=== PATIENT | female | born 1955 | race Caucasian/White ===

== ENCOUNTER 2019-11-02 13:19 | Outpatient (CLI) | payer MEDICARE, SELFPAY ==
--- NOTE | 2019-11-02 13:30 | USCV_ITS ---
Cinthia Palacios Age: 64 Gender: F : 1955 Exam Date: 11/02/2019 13:21 Ordering Phys: Katie Dobbs Technologist: Eilezer Gómez [place] [facility] [place]: [place] RIGHT LEFT Brachial 165.00 mmHg Brachial 172.00 mmHg Pressure (mmHg) Waveform Pressure (mmHg) Waveform 136.00 Above Knee 139.00 167.00 Below Knee 148.00 178.00 ATTORNEY 150.00 142.00 DPA 137.00 1.03 Ankle/Brachial Index 0.87 Pre-Exercise Toe Pressure 101.00 90.00 0.52 Pre-Exercise Toe/Brachial Index 0.59 FINDINGS Normal resting CASTRO on the right side Slightly diminished resting CASTRO on the left side Diminished resting TBI bilaterally PVR waveforms showing low velocity delayed peaking waves. CONCLUSIONS Mild to moderate peripheral artery disease bilaterally, based on the above findings. The reliability of the PVR waveforms are questionable Dr Marilyn Moore MD [facility] (Electronically Signed) Final Date: 05 November 2019 14:33 S
== END 2019-11-02 13:20 | disposition home or self-care (01) ==
LOC: US 13:20
PROVIDERS: Family Provider Physician Assistant; Visit Provider Physician Assistant
DX: I73.9 Peripheral vascular disease, unspecified (principal)
CPT/HCPCS: 93923

== ENCOUNTER 2019-11-16 07:51 | Outpatient (CLI) | payer MEDICARE, SELFPAY ==
--- NOTE | 2019-11-16 08:00 | USCV_ITS ---
Cinthia Palacios Age: 64 Gender: F : 1955 Exam Date: 11/16/2019 08:17 Ordering Phys: Sandor Lipscomb MD (Andy) ([email or web address] Technologist: Leslie Bryson Exam Location: [facility] – [place] Indication: STENOSIS Risk Factors: SMOKER Previous Vascular Surgery: KNOWN LEFT OCCLUSION Right Brachial BP: / Left Brachial BP: / Right Left Velocity (cm/s) Spectral Plaque Velocity (cm/s) Spectral Plaque Syst/Diast Broadening Syst/Diast Broadening 81.60/ 28.70 Prox CCA 44.70 / 9.20 71.70/ 28.70 Mid CCA 37.50 / 8.80 67.30/ 26.50 Distal CCA 54.00 / 14.30 310.43/106.37 Prox ICA / 222.20/74.10 Mid ICA / 225.00/79.80 Distal ICA / 159.10 ECA 110.30 4.97 ICA/CCA Vertebral Antegrade 48.60/ 18.40 cm/s 56.20/ 25.40 cm/s FINDINGS Moderate to heavy heterogeneous plaques of the right bifurcation and proximal internal carotid artery Heavy plaques at the proximal left ICA and bifurcation No Doppler flow signals in the left ICA Antegrade flow in the vertebral arteries bilaterally Normal Doppler flow velocities in the external carotid arteries bilaterally CONCLUSIONS 1. Features of total occlusion of the left internal carotid artery, chronic. 2. Moderate to heavy at venous plaques at the right bifurcation and proximal left carotid artery with velocity elevation consistent with greater than 70% stenosis. 3. Intimal thickening and minimal plaques in the common carotid arteries bilaterally Compared to the study from 03/16/2019, there is worsening of stenosis on the right side. Consider CTA, to better evaluate the carotid arteries Dr Marilyn Moore MD [facility] (Electronically Signed) Final Date: 16 November 2019 17:37 S
== END 2019-11-16 07:52 | disposition home or self-care (01) ==
LOC: RAD 07:55
PROVIDERS: Family Provider Physician Assistant; PCP Physician Assistant; Visit Provider Thoracic Surgery (Cardiothoracic Vascular Surgery)
DX: I65.23 Occlusion and stenosis of bilateral carotid arteries (principal); F17.200 Nicotine dependence, unspecified, uncomplicated
CPT/HCPCS: 93880

== ENCOUNTER 2019-12-06 07:46 | Outpatient (CLI) | payer MEDICARE, SELFPAY ==
--- NOTE | 2019-12-06 08:20 | CT_ITS ---
WS: [id number] CT ANGIOGRAM CAROTID ARTERIES HISTORY: carotid stenosis TECHNIQUE: CT angiogram is performed of the carotid arteries. During arterial injection imaging is ob tained from the skull base to the aortic arch in 1.25 mm imaging. Coronal and sagittal reformats are submitted, MIP imaging also reviewed. Additional multiplanar reformats of the carotid arteries are harris bmitted. NASCET criteria utilized. All CT scans at [facility] use at least one of these d ose optimization techniques: automated exposure control; mA and/or kV adjustment per patient size (in cludes targeted exams where dose is matched to clinical indication); or iterative reconstruction. CONTRAST: Omnipaque 350; 95 mL IV. DLP: 822.99 mGycm COMPARISON: 08/31/2018 Right carotid: Common carotid artery: Arises normally from the innominate artery. No significant plaque or stenosis. Internal carotid artery: Small amount of intimal thickening and calcified plaque at the bifurcation. Focal narrowing involving the proximal ICA. Proximal RIGHT ICA stenosis 76%. There is mild narrowing involving the origin of the ICA with stenosis near 50%. External carotid artery: Patent. Left carotid: Common carotid artery: Very slight narrowing at the origin but no significant stenosis. Internal carotid artery: LEFT ICA is completely occluded. Chronic occlusion as this was described on 08/31/2018 also. External carotid artery: Patent. Right vertebral artery: Unremarkable. Left vertebral artery: Small amount of plaque at the origin of the LEFT vertebral artery but it is pa tent. Subclavian arteries: No stenosis or abnormality identified. Upper thorax: No suspicious nodules at the lung apices. 2 mm nodule LEFT upper lobe. Mild atheroscler osis at the aortic arch. Thyroid gland: Normal. Osseous structures: Degenerative disc disease and osteophytes throughout the cervical spine. Skull base: Patent RIGHT carotid artery through the cavernous sinuses. The LEFT carotid artery is occ luded through the petrous ridge. There is a small lumen noted in the cavernous sinus which is probabl y due to retrograde flow through a patent yocha dehe of [place]. CT/CT angio neck 37794 IMPRESSION: 1. Tendon stenosis involving the RIGHT ICA. Stenosis 50% at the origin of the ICA and 76% proximal ICA. 2. Known, completely occluded LEFT ICA.
[2019-12-06 08:55] LABS: Blood Urea Nitrogen 5 mg/dL (8-23); Glomerular Filtration Rate 100.3 mL/min (90-130)
[2019-12-06] MEDS: iohexol 350 mg/mL 100 mL Btl IV (09:08)
== END 2019-12-06 07:47 | disposition home or self-care (01) ==
LOC: RADWPI 07:47
PROVIDERS: Family Provider Physician Assistant; PCP Physician Assistant; Visit Provider Thoracic Surgery (Cardiothoracic Vascular Surgery)
DX: I65.23 Occlusion and stenosis of bilateral carotid arteries (principal); I73.9 Peripheral vascular disease, unspecified
CPT/HCPCS: 70498; 82565; 84520; Q9967

== ENCOUNTER 2020-01-07 10:00 | Inpatient (IN) | payer MEDICARE, OTHER, SELFPAY ==
[2020-01-02 09:37] VITALS: BMI 24.7
--- NOTE | 2020-01-02 09:41 | ECG_ITS ---
Measurements Intervals Noel Rate: 53 P: -62 FL: 118 QRS: 62 QRSD: 81 T: 73 QT: 437 QTc: 411 JUNCTIONAL BRADYCARDIA ABNORMAL RHYTHM ECG Compared to ECG 05/02/2018 23:17:48 Sinus rhythm no longer present ST (T wave) deviation no longer present Electronically Signed On 01-02-2020 18:12:26 CDT by Marilyn Moore M.D. [email or web address]
--- NOTE | 2020-01-02 09:47 | XR_ITS ---
WS: [id number] PROCEDURE: XR chest 2V* [id number] CLINICAL INFORMATION: pre op for surgery COMPARISON: May 02, 2018 FINDINGS: Heart: Normal cardiac silhouette. Aortic calcification. Lungs: Moderate chronic emphysematous changes. A few calcified granulomas. No acute pulmonary infiltr ates. Bones: Mild thoracic kyphosis. Cholecystectomy clips. XR/XR chest 2V* 97392 IMPRESSION: No acute chest findings.
[2020-01-02 11:11] LABS: Bilirubin Urine Neg (NEGATIVE); Blood Urine Neg (Negative); Glucose Urine UA Norm (Normal); Ketones Urine Negative (Negative); Leukocyte Esterase Urine Negative (Negative); Nitrate Urine Negative (Negative); Protein Urine Neg (Negative); Urine Appearance Clear (CLEAR); Urine Color Straw (Yellow); Urobilinogen Urine Norm (Negative); pH Urine 7 (5-7)
[2020-01-02 11:12] LABS: Add Urine Culture? No; Bacteria Urine TRACE; Squamous Epithelial Cell Urine 0-4 (0-5)
--- NOTE | 2020-01-02 11:29 | P.ANESASSM_ITS ---
Pre-Anesthetic Assessment Pre-Anesthetic Assessment: Height/Weight: Height 1.55 m Weight 59.421 kg Preop Diagnosis: Right Carotid Stenosis Proposed Procedure: Operation Date: 01/07/20 07:00 Proposed Procedures p Carotid Endarterectomy(Not Applicable) - Sandor Lipscomb MD Social: Packs per day: 1/2 Pack years: >50 Exam: Pre-Anes Outpt Exam: alert, oriented x 3, clear to auscultation bilaterally and regular rate & rhythm Airway: Submandibular: WNL Cervical ROM: WNL MP: 1 Pulmonary: Pulmonary: COPD CV/HEM: CV/HEM: PVD Comments: stress test '17 negative GI: GI: GERD Comments: controled with omeprazole Metabolic: Metabolic: Thyroid Comments: replacement x 5y without recent ch rodrigo Musc/skel: Musc/skel: Lower Back Pain Comments: right radiculopathy Anesthetic Plan: ASA status: 3 Anesthesia: General PFSH Anesthesia PFSH: Social History Smoking and tobacco status: current every day smoker Alcohol intake: never Data Anesthesia Other Labs: Laboratory Results - last 48 hr 01/02/20 10:30 Urine Color Straw Urine Appearance Clear Urine pH 7 Ur Specific [place] 1.000 L Urine Protein Neg Urine Glucose (UA) Norm Urine Ketones Negative Urine Blood Neg Urine Nitrate Negative Urine Bilirubin Neg Urine Urobilinogen Norm Ur Leukocyte Esterase Negative Urine RBC None Urine WBC None Ur Squamous Epith Cells 0-4 H Urine Bacteria Trace Cardiac Studies: No Data to Display
[2020-01-02 11:40] LABS: Basophils # 0.1 10^3/uL (0.0-0.1); Basophils % 0.9 %; Eosinophils # 0.1 10^3/uL (0.0-0.8); Eosinophils % 1.4 %; Hematocrit 46.2 % (37.0-47.0); Hemoglobin 14.3 g/dL (11.5-15.3); Mean Corpuscular Volume 84.2 fL (81-99); Mean Platelet Volume 10.4 fL (7.4-10.4); Monocytes # 0.4 10^3/uL (0.2-0.9); Monocytes % 4.6 %; Neutrophils # 5.6 10^3/uL (1.8-7.7); Neutrophils % 68.7 %; Nucleated Red Blood Cells % 0 %; Platelet Count 367 10^3/cmm (130-400); Red Blood Count 5.49 10^6/uL (4.1-5.3); Red Cell Distribution Width 14.9 % (12.1-15.1); White Blood Count 8.1 10^3/uL (4.0-10.0)
[2020-01-02 11:56] LABS: Anion Gap 15.2 (5-19); Blood Urea Nitrogen 8 mg/dL (8-23); Calcium 9.6 mg/dL (8.5-10.5); Carbon Dioxide 27 mmol/L (22-29); Chloride 98 mmol/L (98-107); Glucose 107 mg/dL (65-115); Osmolality Calculated 278 mOsm/kg (285-295); Potassium 4.2 mmol/L (3.5-5.1); Sodium 136 mmol/L (136-145)
[2020-01-02 12:01] LABS: INR 0.95 (0.8-1.2)
[2020-01-02 12:02] LABS: Partial Thromboplastin Time 40.3 SECONDS (23.9-36.7)
[2020-01-07] VITALS (7 sets, daily range): BP systolic 121–136; BP diastolic 65–71; PULSE 55–80; RESP 14–21; TEMP 36.4; O2SAT 92–95
[2020-01-07 06:00] LABS: Glucose Point of Care 89 mg/dL (70-110)
--- NOTE | 2020-01-07 06:12 | W.PM.OPSUD ---
Surgery/Procedure H&P Update DATE OF PROCEDURE: January 07, 2020 DATE H&P PERFORMED: 01/03/20 H&P UPDATE INFORMATION: I have reviewed H&P completed within last 30 days, I have examined patient prior to procedure and No changes to prior documentation PREOP DIAGNOSIS: Right carotid endarterectomy PRIMARY INDICATION FOR PROCEDURE: 76% right ICA stenosis with total occlusion of the left ICA. Details and risk of the procedure again carefully discussed. Increase stroke risk related to her known left ICA occlusion were frankly reviewed. She states understanding. Proper consents have been reviewed and signed. PLANNED PROCEDURE: Operation Date: 01/07/20 07:00 Proposed Procedures p Carotid Endarterectomy(Not Applicable) - Sandor Lipscomb MD
[2020-01-07] MEDS: sodium chloride 0.9% 1,000 ML 30 ML IV (06:15)
[2020-01-07] MEDS: midazolam 1 mg/mL INJ 2 mL 2 MG IVP (06:36)
[2020-01-07] MEDS: ipratropium 0.5 mg/2.5 mL Neb INHALATION (06:40)
--- NOTE | 2020-01-07 06:45 | P.ANESUD_ITS ---
Pre-Anesthetic Update Pre-Anesthetic Assessment: Date of Surgery/Procedure: 01/07/20 Preop Tamara gnosis: Right carotid endarterectomy Proposed Procedure: Operation Date: 01/07/20 07:00 Proposed Procedures p Carotid Endarterectomy(Not Applicable) - Sandor Lipscomb MD Any changes to Pre-Anesthetic Assessment?: No Last Intake: Intake Last Liquid Date 01/07/20 Last Liquid Time 05:00 Last Solid Date 01/06/20 Last Solid Time 21:30 Labs Last 48hrs: Laboratory Results - last 48 hr 01/07/20 05:56 POC Glucose 89 Vitals: Temperature 97.5 F L 01/07/20 06:04 Temperature Source Temporal Artery S can 01/07/20 06:04 Pulse Rate 58 L 01/07/20 06:04 Respiratory Rate 16 01/07/20 06:04 Blood Pressure 127/65 01/07/20 06:04 Blood Pressure Arely n 85 01/07/20 06:04 Pulse Oximetry 95 01/07/20 06:04 Oxygen Delivery Me thod 01/07/20 06:04 Exam: Pre-Anes Outpt Exam: alert, oriented x 3, clear to auscultation bilaterally and regular rate & rhythm Cardiac Studies: No Data to Display
[2020-01-07] MEDS: vancomycin 1,000 MG SDV 1000 MG IRRIGATION (07:45)
[2020-01-07] MEDS: heparin, porcine 1,000 unit/mL INJ 10 mL 10000 UNIT IRRIGATION (07:45)
--- NOTE | 2020-01-07 10:00 | SUR.PHASEI ---
To ICU s/p right carotid. O2 in place 6 l simple mask Arterial line in place to right wrist. Pt to be recovered in ICU
[2020-01-07] MEDS: ketorolac 30 mg/mL INJ IVP ×2 (10:49→19:33)
[2020-01-07] MEDS: ondansetron 2 mg/ML SDV 2 mL 4 MG IVP ×2 (10:49→13:51)
[2020-01-07] MEDS: atorvastatin 40 mg Tablet 20 MG PO (11:12)
[2020-01-07] MEDS: clopidogrel 75 mg Tablet PO (11:12)
[2020-01-07] MEDS: aspirin 81 mg EC Tablet PO (11:12)
[2020-01-07] MEDS: albuterol 8 gm MDI 2 PUFF INHALATION (11:13)
[2020-01-07] MEDS: HYDROcodone-acetaminophen 5-325 mg Tablet 1 TAB PO ×2 (11:39→17:23)
--- NOTE | 2020-01-07 12:54 | P.OP_ITS ---
Operative Report Date of procedure: January 07, 2020 Pre-op Diagnosis: Right internal carotid artery stenosis with left internal carotid artery occlusion Post-op diagnosis: same Procedure Done: Right carotid endarterectomy with patch angioplasty Implants: Hemashield patch Specimens removed/disposition: Right carotid plaque Surgeon: Sandor Lipscomb Anesthesia: General Estimated blood loss (mL): 50 Complications: None: Neurologically intact immediately postop. Condition: stable Disposition: ICU Brief History: Pleasant 64-year-old female referred to our service for markedly increased velocities in the right ICA and suggestion of left ICA occlusion. Subsequent CTA of December 05 revealed ostial stenosis of 50% of the right ICA with a slightly distal but still proximal stenosis of 76%. The left ICA is occluded. Patient continues to smoke at least 1/2 pack of cigarettes per day. Recommendation for right carotid endarterectomy was made to reduce her statistical increased risk for spontaneous CVA related to this high-grade lesion, particular in the face of left internal carotid occlusion. Details the risk of the procedure were carefully and frankly discussed. Proper consents were reviewed and signed. Procedure: Ms. Palacios was placed on the OR table and underwent general endotracheal anesthesia with a neurological monitoring endotracheal tube as well as placement of a right radial arterial line. Bihemispheric monitoring pads were placed as well as grounding and sensing pads for nerve conduction evaluation during neck dissection.The entire upper chest and right neck were sterilely prepped and draped. Incision was made along the anterior border of the sternomastoid muscle and carried down to the platysma with cautery. Dissection from this point forward was carried out utilizing Metzenbaum scissors. The internal jugular vein was dissected free and the facial vein was ligated, oversewn, and divided. Dissection was continued down through the ansa cervicalis with preservation of major branches. Minor branches were divided if required to allow for adequate exposure. Nerve conduction evaluation was performed throughout the dissection for protection of the recurrent nerve. We subsequently reached the common carotid artery. Dissection was then contin ued proximally to distally across the bifurcation. Vessel loops were placed around the common carotid artery, internal carotid artery, and external carotid artery. Distally, the base of the hypoglossal nerve could be identified and was protected. The internal carotid artery disease went fairly high and extended above the level of the mandibular angle. This did require some traction in this region, but great care was taken to minimize pressure to the hypoglossal nerve, which was protected. Care was taken during this dissection to avoid injury to the vagus nerve. The patient was then heparinized with 10,000 units. The systolic blood pressure was elevated to 160. Following this, in a rapid sequenced fashion, the distal internal carotid artery was clamped followed by clamping of the common carotid artery and external carotid artery. #11 scalpel blade was used to open the common carotid artery proximally. Beck scissors were then utilized to extend this arteriotomy across the distal common carotid artery and ulcerated very stenotic plaque and continue this further at the bifurcation across the calcific plaque in the internal carotid artery until we had reached normal intima. The internal carotid artery clamp was briefly flashed with evidence of brisk back bleeding, therefore we elected not to shunt. It should be noted that bi-hemispheric oximetry was recorded throughout the procedure. Next, a freer elevator was utilized to create a dissection plane the plaque from intima at the proximal portion of the arteriotomy. This was then divided with a #11 scalpel blade. This plaque was then further dissected along the intimal plane proximally to distally across the bifurcation. Utilizing an everting technique, plaque was removed from the external carotid artery with brisk flow. This plaque was then dissected free up the internal carotid artery to a feathered edge. Heparinized saline solution was utilized to remove any loose debris. Next, a Hemashield patch was brought into the field and sewn into position utilizing a running 6-0 Prolene suture, thereby completing our patch angioplasty. At the completion of the patch, the external carotid artery was opened followed by the common carotid artery and finally the internal carotid artery, thereby reestablishing cerebral flow. Areas of extravasation were repaired with 7-0 Prolene suture. After 5 minutes, heparin was reversed with protamine. Hemostasis was confirmed. The wound was irrigated with antibiotic solution. A small, flat, Wing-Centeno drain was placed in the wound and connected to bulb suction. Sponge and needle count was correct. The wound was then closed in 2 layers of 3-0 Vicryl suture. Skin was reapproximated in a subcuticular manner with 4-0 Monocryl suture. A pressure dressing was then applied. Ms. Palacios was awakened from anesthesia and spontaneous movement of all extremities as well as movement to command was noted. The patient was then transferred to the ICU in stable condition. I did counselor dormitory with her son by phone at completion of the procedure. She will be monitored in the ICU for the next 24 hours.
[2020-01-07] MEDS: morphine 4 mg/mL SDV 1 mL 2 MG IVP ×2 (12:57→16:30)
--- NOTE | 2020-01-07 13:45 | PC.NURSE ---
Continues to complain of nausea from pain meds. Dr Pulido aware and order received to repeat Zofran IV now and if nausea continues to use Phenergan RS
[2020-01-07] MEDS: ceFAZolin 1,000 MG in sodium chloride 0.9% (plus) 50 ML 100 MG IV ×2 (15:13→23:29)
[2020-01-07] MEDS: promethazine 25 mg Supp PR (15:29)
[2020-01-08] VITALS: BP 116/50; PULSE 70; RESP 18; O2SAT 91
[2020-01-08 02:00] VITALS: BP 122/67; PULSE 64; RESP 17; O2SAT 92
[2020-01-08] MEDS: HYDROcodone-acetaminophen 5-325 mg Tablet 1 TAB PO ×2 (03:31→08:38)
[2020-01-08 04:00] VITALS: BP 121/55; PULSE 64; RESP 17; O2SAT 91
--- NOTE | 2020-01-08 05:25 | PM.PN ---
Subjective Subjective: Interval history: Postop day #1 status post right carotid endarterectomy. Had uneventful night. Neurologically intact. Vital signs stable. No phonation or swallowing difficulties. Low KIM drain output. KIM drain was discontinued this morning. Incision clean and dry. No localized swelling. Tongue is midline with protrusion. Vitals/I&O/Wt Last Vital Signs Temp 97.5 F L 01/07/20 06:04 Pulse 64 01/08/20 04:00 Resp 17 01/08/20 04:00 BP 121/55 01/08/20 04:00 Pulse Ox 91 01/08/20 04:00 01/07/20 01/07/20 01/08/20 14:59 22:59 06:59 Intake Total 1570 / 1570 410 / 1980 Output Total 350 / 350 665 / 1015 300 / 1315 Balance 1220 / 1220 -255 / 965 -300 / 665 Physical Exam Const: COMMON NORMALS: oriented x3 and alert ORIENTATION/CONSCIOUSNESS: Yes oriented to person, Yes oriented to place and Yes oriented to time Neck/C-Spine: COMMON NORMALS: full ROM, no lymphadenopathy and supple GENERAL: Yes trachea midline and No anterior neck swelling OTHER: Neck incision clean and dry. KIM drain removed. Neuro: COMMON NORMALS: oriented x3, moves all extremities, no focal motor deficits and no sensory deficits noted SENSORIUM/ORIENTATION: Yes alert, Yes oriented to person, Yes oriented to place and Yes oriented to time Urinary Catheter Management^: Mccoy: Cath Placed During This Visit: yes, but has since been removed by the nurse Reason for Continuing Indwelling Catheter: Accurate Measurement of Urinary Output in Critically Ill Patients Urinary Catheter Date of Insertion: 01/07/20 Urinary Catheter Time of Insertion: 07:12 Date Urinary Catheter Removed: 01/07/20 Time Urinary Catheter Discontinued: 17:20 Data : 01/02/20 11:15 01/02/20 11:15 A&P Assessment and plan (1) Status post carotid endarterectomy: Postop day #1 status post right carotid endarterectomy. Recovering well. Neurologically intact. We will plan to discharge to home today. Follow-up in clinic in 1 week. Stable at discharge. Status: Acute Attestations Medical Necessity Statement*: High-grade right ICA stenosis with known left ICA occlusion. Status post right carotid endarterectomy. Neurologically intact. Time Spent in Patient Care: 16 - 35 minutes Coding Level of Care Code Acute [employer] for [employer] Fwd Diagnoses Status post carotid endarterectomy Z98.890
[2020-01-08] MEDS: isosorbide mononitrate ER 30 mg Tablet PO (05:27)
--- NOTE | 2020-01-08 05:32 | P.DS_ITS ---
Discharge Providers Date of Admission: 01/07/20 10:00 Date of Discharge: January 08, 2020 Attending Provider at Admission: Sandor Lipscomb MD Attending Provider at Discharge: Sandor Lipscomb MD Primary Care Provider: Katie Dobbs Diagnoses at Discharge Discharge Diagnosis (1) Status post carotid endarterectomy: Status: Acute Reason for Visit Reason for Visit: Brief History: 64-year-old female with known left internal carotid artery occlusion and high-grade right internal carotid artery stenosis. Carotid endarterectomy is recommended redo statistical increased risk for spontaneous CVA related to her carotid stenosis. Hospital Course 2 Hospital Course: Ms. Palacios was electively admitted on January 06 and underwent right carotid endarterectomy with patch angioplasty. Postoperative, she convale sced in the ICU where she remained hemodynamically and neurologically stable. She has had no difficulties with phonation or swallowing. Pain is been under good control. She has low KIM drain output overnight and therefore KIM drain was discontinued this morning. Incision clean and dry. No neurologic deficits noted. He will be discharged home today in stable condition. Physical Exam Const: COMMON NORMALS: oriented x3 and alert ORIENTATION/CONSCIOUSNESS: Yes oriented to person, Yes oriented to place and Yes oriented to time Neck/C-Spine: COMMON NORMALS: full ROM, no lymphadenopathy and supple OTHER: Incision clean and dry. Low KIM drain output. KIM drain discontinued. Neuro: COMMON NORMALS: oriented x3, no focal motor deficits and no sensory deficits noted SENSORIUM/ORIENTATION: Yes alert, Yes oriented to person, Yes oriented to place and Yes oriented to time Urinary Catheter Management^: Mccoy: Cath Placed During This Visit: yes, but has since been removed by the nurse Reason for Continuing Indwelling Catheter: Accurate Measurement of Urinary Output in Critically Ill Patients Urinary Catheter Date of Insertion: 01/07/20 Urinary Catheter Time of Insertion: 07:12 Date Urinary Catheter Removed: 01/07/20 Time Urinary Catheter Discontinued: 17:20 Discharge Data Data Completed and Pending: Completed Studies During Hospitalization Category Date Time Status XR chest 2V* 7104 6 Routine Exams 01/02/20 09:47 Completed Pending at discharge Category Date Time Status Leukocyte Reduced RBC Routine Lab 01/02/20 11:15 Results Retype for XM Rou pankaj Lab 01/02/20 11:15 Results Type and Screen - Cardiac Routine Lab 01/02/20 11:15 Results Pathology: Surgic al [PTH] Routine Pth 01/07/20 08:55 Received Labs from last 24 hours 01/07/20 01/02/20 05:56 11:15 POC Glucose 89 Blood Type A Positive Rho(D) Type Positive Antibody Screen Negative Crossmatch See Detail Vitals: Last Vital Signs Temp 97.5 F L 01/07/20 06:04 Pulse 64 01/08/20 04:00 Resp 17 01/08/20 04:00 BP 121/55 01/08/20 04:00 Pulse Ox 91 01/08/20 04:00 Discharge Plan Discharge Condition: Stable Prescriptions: New hydrocodone-acetaminophen 5-325 mg Tablet 1 tab PO Q6H PRN (Reason: Moderate Pain) Qty: 16 RF: 0 Continued clopidogrel [Plavix] 75 mg tablet 75 mg PO QDAY RF: 0 isosorbide mononitrate 30 mg tablet extended release 24 hr 30 mg PO QAM RF: 0 lovastatin 20 mg tablet 20 mg PO QDAY RF: 0 omeprazole 40 mg capsule,delayed release(DR/EC) 40 mg PO QDAY RF: 0 levothyroxine 50 mcg capsule 50 mcg PO QDAY RF: 0 atenolol 50 mg tablet 50 mg PO QDAY RF: 0 albuterol sulfate 90 mcg/actuation HFA aerosol inhaler 2 puff INHALATION Q6H PRN (Reason: Dyspnea) RF: 0 acetaminophen 325 mg capsule 650 mg PO Q4H PRN (Reason: Pain) RF: 0 aspirin 81 mg tablet,delayed release (DR/EC) 81 mg PO QDAY RF: 0 Discharge Orders: Discharge Order (Routine); Ordered 01/08/20 Ordered By: Sandor Lipscomb Referrals: Sandor Lipscomb MD [Physician] - 1 week Discharge Diet: Usual diet Discharge Activity: Limit activity as instructed Activity Restrictions/Additional Instructions: No heavy lifting or pulling x2 weeks Remove bandage tomorrow. May leave incision open, or recover if desired. May begin daily showers on , January 09 Report any swelling, drainage, redness, or increasing pain in neck Report any visual changes, difficulty swallowing or speech, or difficulty moving extremities. Resume all home medications. Discharge Attestations Time Spent in Discharge Care*: less than 30 min Specific Discharge Activities: Specific discharge activities: educating patient, discussing with pcp/other providers and documenting/other paperwork Time Spent in Smoking Cessation: Time spent discussing smoking cessation with patient: 3 to 10 minutes Status at Discharge: Cognitive status at discharge: cognitively intact , Behavioral status at discharge: cooperative , Functional status at discharge: independent ambulation Quality Metrics Clinical Quality Measures During this hospital stay, did patient experience: None Coding Level of Care Code Acute [employer] for [place] Fwd Diagnoses Status post carotid endarterectomy Z98.890
[2020-01-08 06:00] VITALS: BP 138/94; PULSE 71; RESP 25; TEMP 36.7; O2SAT 90
[2020-01-08] MEDS: ceFAZolin 1,000 MG in sodium chloride 0.9% (plus) 50 ML 100 MG IV (06:38)
[2020-01-08 08:07] VITALS: BP 123/87; PULSE 75; RESP 20; TEMP 36.3; O2SAT 94
[2020-01-08] MEDS: atorvastatin 40 mg Tablet 20 MG PO (08:33)
[2020-01-08] MEDS: clopidogrel 75 mg Tablet PO (08:34)
[2020-01-08] MEDS: pantoprazole DR 40 mg Tablet PO (08:34)
[2020-01-08] MEDS: aspirin 81 mg EC Tablet PO (08:35)
[2020-01-08] MEDS: levothyroxine 50 mcg Tablet PO (08:35)
[2020-01-08] MEDS: atenolol 50 mg Tablet PO (08:35)
[2020-01-08 08:52] VITALS: BP 123/87; PULSE 75; RESP 20; TEMP 36.3; O2SAT 94
--- NOTE | 2020-01-08 08:55 | PC.NURSE ---
Discharge instructions on carotid endartectomy, hydrocodone, post surgical restrictions provided and discussed. List of home medications lso provided. Pt verbalized understanding. Pt discharged.
== END 2020-01-08 08:52 | disposition home or self-care (01) | DRG 39 ==
LOC: ICU 10:14
PROVIDERS: Admitting Provider Thoracic Surgery (Cardiothoracic Vascular Surgery); Family Provider Physician Assistant; PCP Physician Assistant; Visit Provider Thoracic Surgery (Cardiothoracic Vascular Surgery)
PROC: 03CK0ZZ Extirpation of Matter from Right Internal Carotid Artery, Open Approach (ICD-10-PCS; CPT 35301; principal; 2020-01-07 07:00)
DX: I65.23 Occlusion and stenosis of bilateral carotid arteries (principal); F17.210 Nicotine dependence, cigarettes, uncomplicated; J44.9 Chronic obstructive pulmonary disease, unspecified; K21.9 Gastro-esophageal reflux disease without esophagitis; I73.9 Peripheral vascular disease, unspecified; Z79.02 Long term (current) use of antithrombotics/antiplatelets; Z79.82 Long term (current) use of aspirin
CPT/HCPCS: 12345; 36415; 36416; 51702; 71046; 80048; 81001; 82962; 85025; 85610; 85730; 86850; 86900; 86920; 88304; 93005; 94640; 96374; 96375; J0330; J0690; J1100; J1644; J1885; J2001; J2250; J2270; J2370; J2405; J2720; J3010; J3370; J3490; J3535; J7030; J7644; J8498

== ENCOUNTER 2020-02-27 15:29 | Outpatient (CLI) | payer MEDICARE, OTHER, SELFPAY ==
--- NOTE | 2020-02-27 15:45 | USCV_ITS ---
Cinthia Palacios Age: 65 Gender: F : 1955 Exam Date: 02/27/2020 16:14 Ordering Phys: Sandor Lipscomb MD (Andy) ([email or web address]) Technologist: Eliezer Gómez Exam Location: [facility] [place] Indication: POST OP CAROTID ENDARTERECTOMY Risk Factors: Previous Vascular Surgery: R CEA Right Brachial BP: / Left Brachial BP: / Right Left Velocity (cm/s) Spectral Plaque Velocity (cm/s) Spectral Plaque Syst/Diast Broadening Syst/Diast Broadening 87.10/ 19.80 Prox CCA 78.30 / 13.20 75.20/ 22.20 Mid CCA 52.90 / 9.60 76.00/ 20.50 Distal CCA 42.70 / 10.10 100.30/32.00 Prox ICA / 107.50/41.20 Mid ICA / 85.80/ 27.00 Distal ICA / 144.40 ECA 192.50 1.43 ICA/CCA Antegrade Vertebral Antegrade 76.10/ 22.10 cm/s 72.80/ 20.90 cm/s Bi Subclavian Bi 131.2 135.6 0 0 FINDINGS Mild diffuse plaques at the right bifurcation and proximal internal carotid artery. No Doppler flow signals in the left internal carotid artery. Moderate heterogeneous plaques of the left bifurcation Intimal thickening and minimal plaques in the common carotid arteries bilaterally Antegrade flow in the vertebral arteries bilaterally CONCLUSIONS 1. Features of chronic total occlusion of the left internal carotid artery. 2. Mild diffuse plaque at the right bifurcation and internal carotid artery, with velocity elevation, suggestive of 16-49 % stenosis 3. Intimal thickening and minimal plaques in the common carotid arteries bilaterally Compared to the previous study from 11/16/2019, there is significant improvement of the stenosis on the right side Dr Marilyn Moore MD [facility] (Electronically Signed) Final Date: 28 February 2020 17:50 S
== END 2020-02-27 15:30 | disposition home or self-care (01) ==
LOC: RAD 15:34
PROVIDERS: PCP Physician Assistant; Visit Provider Thoracic Surgery (Cardiothoracic Vascular Surgery)
DX: Z98.890 Other specified postprocedural states (principal); Z48.812 Encounter for surgical aftercare following surgery on the circulatory system; I65.22 Occlusion and stenosis of left carotid artery
CPT/HCPCS: 93880

== ENCOUNTER 2020-05-18 16:31 | Emergency (ER) | payer MEDICARE, OTHER, SELFPAY ==
--- NOTE | 2020-05-18 16:34 | XRR_ITS ---
PROCEDURE INFORMATION: Exam: XR Right Foot Complete Exam date and time: 05/18/2020 5:20 PM Age: 65 years old Clinical indication: Injury or trauma; Injury history: Dropped a can on foot; Initial encounter; Blunt trauma; Foot and toes; Right lesser toe(s); Injury date: 05/17/20; Injury details: 2-3-4 toe pain TECHNIQUE: Imaging protocol: XR Right foot. Views: Frontal, lateral, and oblique views. COMPARISON: CR Foot 3 views, RIGHT* [id number] 12/15/2016 12:14 PM FINDINGS: Bones/joints: No acute bony abnormality identified. Soft tissues: Forefoot soft tissue swelling. XR/XR foot RT min 3V* [id number] IMPRESSION: No acute bony injury identified.
[2020-05-18 16:54] VITALS: BP 114/65; PULSE 61; RESP 18; TEMP 36.6; O2SAT 94; BMI 24.5
--- NOTE | 2020-05-18 17:37 | W.ED.EXTPRO ---
HPI - Extremity Problem General: Chief complaint: Extremity Injury, Lower Stated complaint: right foot injury Time Seen by Provider: 05/18/20 17:22 History of Present Illness: HPI Narrative: Patient dropped a box on her foot here couple 3 days ago and now has swelling and pain to her right foot on dorsal aspect Complaint: extremity pain Onset (ago): day(s) Pain Consistency: constant Location: right and lower extremity Severity scale (1-10): 6 Quality: aching Radiation: none Relieving factors: immobilization Exacerbating factors: range of motion and weight bearing Associated symptoms: Reports no associated symptoms; Deny chest pain, fever(s) or rash Review of Systems Const: Denies: fever(s), chills or body aches Eyes: Denies: change in vision or blurry vision ENMT: Denies: throat pain or nasal congestion Card: Denies: chest pain or dyspnea on exertion Resp: Denies: dyspnea, productive cough or non-productive cough GI: Denies: abdominal pain, nausea or vomiting Musc: Reports: extremity pain (Patient has bruising to her right foot from dropping a box on) Skin/Breast: Denies: rash Neuro: Denies: headache(s) Psych: Denies: anxiety or depression Christopher/Lymph: Denies: easy bruising PFSH ED PFSH: Medical History (Updated 05/18/20 @ 17:30 by NANCY Amador) Bilateral carotid artery stenosis without cerebral infarction Family History Other CAD (coronary artery disease) Social History Smoking and tobacco status: current every day smoker Alcohol intake: never Physical Exam Const: COMMON NORMALS: no acute distress, average body habitus and patient oriented x3 HENMT: COMMON NORMALS: normocephalic HEAD & SCALP: normal to inspection and normocephalic FACE & SINUS: normal facial exam Eye: COMMON NORMALS: conjunctivae normal GENERAL EYE: appearance normal, both eyes and all related structures CONJUNCTIVA: Yes conjunctivae normal Neck/C-Spine: COMMON NORMALS: no JVD Chest: COMMONS NORMALS: normal inspection of the chest Resp: COMMON NORMALS: normal respiratory effort Cardio: COMMON NORMALS: no JVD Extremity: COMMON NORMALS: full ROM NARRATIVE EXTREMITY EXAM: Patient has bruising to the right dorsal surface of her foot below the #234 toe with probably baseball size in circumference slightly raised tender to the touch has full range of motion of toes is able bear weight but does cause pain distal neurovascular status intact Neuro: COMMON NORMALS: patient oriented x3 Course Vital Signs: Vital signs: Vital Signs Temperature 97.8 F 05/18/20 16:54 Pulse Rate 61 05/18/20 16:54 Respiratory Rate 18 05/18/20 16:54 Blood Pressure 114/65 05/18/20 16:54 Pulse Oximetry 94 05/18/20 16:54 Discharge Plan Discharge Patient Disposition: Home Clinical Impression: Contusion Qualifiers: Encounter type: initial encounter Contusion area: foot Laterality: right Qualified Code(s): S90.31XA - Contusion of right foot, initial encounter Condition: Stable Prescriptions: New tramadol 50 mg tablet 50 mg PO TID PRN (Reason: pain) Qty: 7 RF: 0 No Action clopidogrel [Plavix] 75 mg tablet 75 mg PO QDAY RF: 0 isosorbide mononitrate 30 mg tablet extended release 24 hr 30 mg PO QAM RF: 0 lovastatin 20 mg tablet 20 mg PO QDAY RF: 0 omeprazole 40 mg capsule,delayed release(DR/EC) 40 mg PO QDAY RF: 0 levothyroxine 50 mcg capsule 50 mcg PO QDAY RF: 0 atenolol 50 mg tablet 50 mg PO QDAY RF: 0 albuterol sulfate 90 mcg/actuation HFA aerosol inhaler 2 puff INHALATION Q6H PRN (Reason: Dyspnea) RF: 0 acetaminophen 325 mg capsule 650 mg PO Q4H PRN (Reason: Pain) RF: 0 aspirin 81 mg tablet,delayed release (DR/EC) 81 mg PO QDAY RF: 0 hydrocodone-acetaminophen 5-325 mg Tablet 1 tab PO Q6H PRN (Reason: Moderate Pain) Qty: 16 RF: 0 Discharge Orders: Discharge Order (Routine); Ordered 05/18/20 Ordered By: Pasquale Joshi Referrals: Katie Dobbs PA [Primary Care Provider] - Discharge Diet: Advance as tolerated Discharge Activity: Resume usual activity Patient Instructions: Contusion in Adults (ED) Activity Restrictions/Additional Instructions: Follow-up with medical provider as directed. Take medications as prescribed. Return to the ER or your medical provider if condition worsens. Please read and understand discharge instructions. If any questions ask please. Coding Level of Care Code ED Analyst Business Analysis for Tevin Gonzalez
[2020-05-18] MEDS: HYDROcodone-acetaminophen 5-325 mg Tablet 1 TAB PO (18:02)
[2020-05-18] MEDS: ondansetron 4 MG Tablet PO (18:03)
[2020-05-18 18:04] VITALS: BP 136/76; PULSE 78; RESP 18; O2SAT 98
== END 2020-05-18 18:05 | disposition home or self-care (01) ==
PROVIDERS: Emergency Provider Nurse Practitioner Family; PCP Physician Assistant
DX: S90.31XA Contusion of right foot, initial encounter (principal); Z79.02 Long term (current) use of antithrombotics/antiplatelets; F17.210 Nicotine dependence, cigarettes, uncomplicated; W20.8XXA Other cause of strike by thrown, projected or falling object, initial encounter
CPT/HCPCS: 12345; 73630; 99281; 99283; Q0162

== ENCOUNTER 2020-09-02 06:57 | Outpatient (CLI) | payer MEDICARE, SELFPAY ==
--- NOTE | 2020-09-02 07:00 | USCV_ITS ---
Cinthia Palacios Age: 65 Gender: F : 1955 Exam Date: 09/02/2020 07:06 Ordering Phys: Sandor Lipscomb MD (Andy) ([email or web address] [email or web address]) Technologist: Eliezer Gómez Exam Location: [facility] [place] Indication: CAROTID STENOSIS Risk Factors: Previous Vascular Surgery: R CEA Right Brachial BP: / Left Brachial BP: / Right Left Velocity (cm/s) Spectral Plaque Velocity (cm/s) Spectral Plaque Syst/Diast Broadening Syst/Diast Broadening 72.30/ 24.40 Prox CCA 79.50 / 11.20 66.40/ 24.40 Mid CCA 65.70 / 12.50 83.80/ 27.60 Distal CCA 38.80 / 12.50 117.00/43.40 Prox ICA / 74.60/ 27.00 Mid ICA / 139.10/56.30 Distal ICA / 106.90 ECA 146.60 1.12 ICA/CCA Antegrade Vertebral Antegrade 60.60/ 18.70 cm/s 73.90/ 23.20 cm/s Bi Subclavian Bi 58.10 88.70 FINDINGS Moderate intravenous plaques of the right bifurcation and proximal internal carotid artery. No flow was dictated in the left internal carotid artery. Antegrade flow in the vertebral arteries bilaterally Moderate diffuse plaques in the external carotid arteries bilaterally CONCLUSIONS 1. Features of chronic total occlusion of the left internal carotid artery. 2. Moderate heterogeneous plaques at the right bifurcation and proximal internal carotid artery, consistent with 16 to 49%. stenosis 3. Intimal thickening in the common carotid arteries bilaterally 4. Elevated velocity in the right distal internal carotid artery, may suggest hemodynamically significant stenosis Consider CTA, to better evaluate the distal ICA, if clinically indicated. Compared to the study from 02/27/2020, the elevated velocity in the right distal ICA appears to be new Dr Marilyn Moore MD [facility] (Electronically Signed) Final Date: 03 September 2020 01:01 S
== END 2020-09-02 06:58 | disposition home or self-care (01) ==
LOC: RAD 07:00
PROVIDERS: PCP Physician Assistant; Visit Provider Thoracic Surgery (Cardiothoracic Vascular Surgery)
DX: I65.23 Occlusion and stenosis of bilateral carotid arteries (principal)
CPT/HCPCS: 93880

== ENCOUNTER → 2020-12-12 09:37 | Outpatient (BNVA) | payer MEDICARE, SELFPAY | PROVIDERS: PCP Physician Assistant; Visit Provider Physician Assistant | DX: Z20.822 Contact with and (suspected) exposure to COVID-19 (principal); Z01.812 Encounter for preprocedural laboratory examination | CPT/HCPCS: 87635 ==

== ENCOUNTER 2020-12-18 07:09 | Outpatient (CLI) | payer MEDICARE, SELFPAY ==
--- NOTE | 2020-12-18 07:19 | CT_ITS ---
WS: [id number] LDCT LUNG CANCER SCREENING HISTORY: NICOTINE DEPENDENCE TECHNIQUE: Axial imaging performed from the apices to 1 cm below the costophrenic angles. Coronal and sagittal reformats are submitted with axial MIP series. All CT scans at [facility] use at least one of these dose optimization techniques: automated exposure control; mA and/or kV adjustment per patient size (includes targeted exams where dose is matched to clinical indication); or iterativ e reconstruction. DLP: 59.78 mGy.cm DIvol: 1.58 mGy COMPARISON: 08/04/2018 Diagnostic quality: Satisfactory Lung Nodules: 3 mm nodule in the posterior RIGHT upper lobe, image 37 of series 3 is stable since 201 8. Additional stable 3 mm nodule LEFT upper lobe, image 39 of series 3. Lungs: There are a few scattered benign granulomata which are calcified. Platelike area of atelectasi s in the lingula with minimal progression since 2018. Heart: Normal size heart. No effusion. Other findings: Mild atherosclerosis thoracic aorta and coronary arteries. A few small benign appeari ng mediastinal and hilar lymph nodes. Increase in thoracic kyphosis. CT/CT lung screening [id number] IMPRESSION: LUNG-RADS: 2-Benign Appearance or Behavior FOLLOW UP: 12 Month: Continue annual screening with LDCT OTHER FINDINGS (S MODIFIER): None.
--- NOTE | 2020-12-18 13:06 | PFTS_ITS ---
Date of Study:12/18/20 Date of Dictation: MECHANICS: Forced vital capacity (FVC) is reduced. Forced expiratory volume in one second (FEV1) is reduced. FEV1/FVC is reduced. FLOW VOLUME LOOP: Reduced flow at all lung volumes with scooping. LUNG VOLUMES: Not measured DIFFUSING CAPACITY FOR CARBON MONOXIDE: Moderately reduced INTERPRETATION: The postbronchodilator spirometry is consistent with severe airflow obstruction. There is a significant postbronchodilator response. A component of restrictive lung disease cannot be ruled out in the absence of lung volume measurements. Gas exchange (DLCO) is moderately reduced. MTDD
== END 2020-12-18 07:10 | disposition home or self-care (01) ==
LOC: RT 07:11
PROVIDERS: PCP Physician Assistant; Visit Provider Physician Assistant
DX: Z12.2 Encounter for screening for malignant neoplasm of respiratory organs (principal); J44.9 Chronic obstructive pulmonary disease, unspecified; F17.210 Nicotine dependence, cigarettes, uncomplicated; I70.0 Atherosclerosis of aorta; I25.10 Atherosclerotic heart disease of native coronary artery without angina pectoris; R91.1 Solitary pulmonary nodule
CPT/HCPCS: 71271; 94060; 94729; J7611

== ENCOUNTER 2020-12-30 10:42 | Emergency (ER) | payer MEDICARE, SELFPAY ==
[2020-12-30 10:51] VITALS: BP 126/73; PULSE 66; RESP 20; TEMP 36.5; O2SAT 95; BMI 26.0
--- NOTE | 2020-12-30 11:06 | XRR_ITS ---
PROCEDURE INFORMATION: Exam: XR Chest Exam date and time: 12/30/2020 11:08 AM Age: 65 years old Clinical indication: Chest pain; Type not specified; Prior surgery; Surgery type: Mastectomy; Patient HX: HX of breast cancer; Additional info: Chest pain x 1 day TECHNIQUE: Imaging protocol: XR of the chest Views: 1 view. COMPARISON: CR XR chest 2V* [id number] 07/21/2020 9:18 AM FINDINGS: Lungs: Minimal nonspecific interstitial thickening. No consolidation. Pleural spaces: Unremarkable. No pleural effusion. No pneumothorax. Heart/Mediastinum: Unremarkable. No cardiomegaly. Bones/joints: No acute findings. XR/XR chest 1V portable [id number] IMPRESSION: No acute findings.
--- NOTE | 2020-12-30 11:06 | ECG_ITS ---
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 Measurements Intervals [place] Rate: 62 P: 63 DC: 131 QRS: 70 QRSD: 81 T: 78 QT: 408 QTc: 415 Interpretive Statements SINUS RHYTHM MODERATE ST DEPRESSION [0.05+ mV ST DEPRESSION] Compared to ECG 01/02/2020 09:56:44 ST (T wave) deviation now present Electronically Signed On 12-30-2020 16:59:59 CDT by Marc Brewer M.D. [id number]
--- NOTE | 2020-12-30 11:07 | W.ED.CHESTPA ---
HPI - Chest Pain General: Chief Complaint: Chest Pain Stated Complaint: HEART ISSUES Time Seen by Provider: 12/30/20 11:03 History of Present Illness: HPI narrative: This patient is a 65-year-old female who presents to the emergency department with a complaint of epigastric and substernal chest pain. Patient states this happened last night and lasted for several minutes before she took a nitro to relieve the pain. Patient describes it as tight and pressure along fullness. Patient does have a history of reflux and does have a history of hiatal hernia. Patient has no chest pain at this time. But that she needed to come get it checked out. She does have a history of cardiac disease and carotid disease. Patient has no specific complaints at this time. Patient does take aspirin and Plavix daily. Patient also takes as needed nitroglycerin if needed. Will do medical evaluation treat as needed. Again patient denies acute cardiac chest pain at this time. MD complaint: chest pain Prior episodes: Yes Pain location: substernal and epigastric Pain radiation: none Severity: moderate Quality: tightness and fullness Relieving factors: nitroglycerin Associated symptoms: Deny abdominal pain, dyspnea, fever(s), nausea, palpitations or vomiting Review of Systems General: Reports: 10 or more systems reviewed and unremarkable except in HPI and below Const: Denies: fever(s), chills, body aches or fatigue Eyes: Denies: change in vision or blurry vision ENMT: Denies: throat pain, hoarseness or mouth pain Card: Reports: chest pain; Denies: palpitations, irregular heart rhythm, edema, swelling of feet/ankles or lightheadedness Resp: Denies: dyspnea, productive cough, non-productive cough, wheezing or pain on inspiration GI: Denies: abdominal pain, nausea or vomiting : Denies: flank pain, difficulty voiding, dysuria, urinary frequency, urinary urgency or urinary hesitancy Musc: Denies: neck pain, back pain, extremity pain, extremity swelling, joint pain, joint swelling, joint redness, joint warmth or limited range of motion Skin/Breast: Denies: rash, pruritus, erythema or skin tenderness Neuro: Denies: headache(s), numbness in extremities or weakness in extremities Psych: Denies: anxiety or depression PFSH ED PFSH: Medical History Adult hypothyroidism Anxiety Back pain Park's palsy Bilateral carotid artery stenosis without cerebral infarction CAD (coronary artery disease) Chronic obstructive asthma with exacerbation COPD (chronic obstructive pulmonary disease) Dyspnea on exertion Emphysema/COPD GERD (gastroesophageal reflux disease) History of hypertension Hx of breast cancer Hx of hyperlipidemia Hyperlipemia Hypertension Hypothyroidism Insomnia Malaise and fatigue PAD (peripheral artery disease) Palpitations Syncope Surgical History H/O tubal ligation History of cholecystectomy Status post carotid endarterectomy Family History (Updated 12/24/20 @ 10:39 by Sandra Viramontes RN) Mother Lung disease Family/Other Cancer Grandmother CAD (coronary artery disease) Stroke Father Bleeding disorder Denies family history of Diabetes Clotting disorder Dementia Chronic kidney disease (CKD) Suicide Anesthesia complication Social History Smoking and tobacco status: current every day smoker Alcohol intake: never Physical Exam Const: COMMON NORMALS: no acute distress, average body habitus, patient oriented x3, no limitations, healthy appearing, alert and well nourished HENMT: COMMON NORMALS: normocephalic, atraumatic, hearing grossly normal bilaterally, external ears normal, EAC's normal, TM's normal bilaterally, Normal external nose present, Normal nasal mucous membranes and turbinates present, moist oral mucous membranes, oropharynx normal, dentition normal and gingiva normal HEAD & SCALP: normocephalic and atraumatic NOSE: Normal external nose present and Normal nasal mucous membranes and turbinates present EXTERNAL EAR: Yes external ears normal EXTERNAL AUDITORY CANAL: EAC's normal TYMPANIC MEMBRANE: TM's normal bilaterally Neck/C-Spine: COMMON NORMALS: full ROM, no lymphadenopathy, supple, no meningeal signs, no JVD, Thyroid normal and No carotid bruits THYROID: Thyroid normal Chest: COMMONS NORMALS: normal inspection of the chest, normal palpation of entire chest wall, normal inspection of the breasts and normal palpation of the breasts Breast/axilla inspection: Yes normal inspection of the breasts BREAST/AXILLA PALPATION: Yes normal palpation of the breasts Resp: COMMON NORMALS: normal respiratory effort, No retractions, No use of accessory muscles, clear to auscultation bilaterally and percussion normal AUSCULTATION: clear to auscultation bilaterally PERCUSSION: percussion normal Cardio: COMMON NORMALS: no JVD, regular rate, regular rhythm, S1 normal heart sound present, S2 normal heart sound present, No gallops present (Cardio), No clicks present (Cardio), No murmurs present (Cardio), No rub (Cardio) and Peripheral pulses 2+ throughout RATE: regular rate RHYTHM: regular rhythm HEART SOUNDS: S1 normal heart sound present and S2 normal heart sound present PERIPHERAL PULSES: Peripheral pulses 2+ throughout GI: COMMON NORMALS: Normal to inspection, nondistended, normoactive bowel sounds present, Soft to palpation, non-tender, No hepatosplenomegaly present, no masses and no bruits PALPATION: Yes Soft to palpation and Yes No hepatosplenomegaly present : COMMON NORMALS: Yes no CVA tenderness, Yes normal external appearance, Yes normal appearance of the vagina, Yes normal appearance of the cervix, Yes normal bimanual exam, Yes No adnexal tenderness and Yes no masses BLADDER/KIDNEY EXAM: Yes no CVA tenderness BIMANUAL EXAM - VAGINA & UTERUS: Yes normal bimanual exam Back/Pelvis: COMMON NORMALS: no CVA tenderness, thoracic and lumbar spine normal to inspection, no thoracic nor lumbar tenderness, thoraco-lumbar ROM normal and straight leg raise negative bilaterally Extremity: COMMON NORMALS: normal to inspection, full ROM, capillary refill normal, no joint enlargement, no clubbing, cyanosis or edema, no calf tenderness and no pedal edema Neuro: COMMON NORMALS: patient oriented x3 SENSORIUM/ORIENTATION: Yes alert MENINGEAL SIGNS: Yes no meningeal signs Course Reevaluation(s): Reevaluation #1: I was informed by nursing staff that the patient has left AGAINST MEDICAL ADVICE. And is left the emergency department. Patient reportedly stated that she felt like she was not that sick and that she would return if symptoms fail to improve or worsen. Again this patient left AGAINST MEDICAL ADVICE. Time: 12:37 Vital Signs: Vital signs: Vital Signs Temperature 97.7 F 12/30/20 10:51 Pulse Rate 66 12/30/20 10:51 Respiratory Rate 20 H 12/30/20 10:51 Blood Pressure 126/73 12/30/20 10:51 Pulse Oximetry 95 12/30/20 10:51 MDM - Chest Pain MDM Narrative: Medical decision making narrative: Patient left AGAINST MEDICAL ADVICE. Imaging Data^: CXR: Attestation: I personally reviewed and interpreted this imaging study as follows: My impression: Negative for any acute findings on chest x-ray EKG Data^: EKG 1: Attestation: I personally reviewed and interpreted this EKG as follows: EKG interpretation date: 12/30/20 EKG interpretation time: 11:26 Prior EKG tracings: available for review Ischemic changes: non-specific ST-T wave changes Interpretation: Sinus rhythm heart rate [address] changes nonspecific EKG. Discharge Plan Discharge Patient Disposition: Left Against Medical Advice Clinical Impression: Atypical chest pain Condition: Stable Prescriptions: No Action losartan 25 mg tablet 25 mg PO DAILY 30 Days Qty: 30 RF: 5 clopidogrel [Plavix] 75 mg tablet 75 mg PO QDAY RF: 0 isosorbide mononitrate 30 mg tablet extended release 24 hr 30 mg PO QAM RF: 0 lovastatin 20 mg tablet 20 mg PO QDAY RF: 0 omeprazole 40 mg capsule,delayed release(DR/EC) 40 mg PO QDAY RF: 0 levothyroxine 50 mcg capsule 50 mcg PO QDAY RF: 0 atenolol 50 mg tablet 50 mg PO QDAY RF: 0 albuterol sulfate 90 mcg/actuation HFA aerosol inhaler 2 puff INHALATION Q6H PRN (Reason: Dyspnea) RF: 0 acetaminophen 325 mg capsule 650 mg PO Q4H PRN (Reason: Pain) RF: 0 aspirin 81 mg tablet,delayed release (DR/EC) 81 mg PO QDAY RF: 0 hydrocodone-acetaminophen 5-325 mg Tablet 1 tab PO Q6H PRN (Reason: Moderate Pain) Qty: 16 RF: 0 tramadol 50 mg tablet 50 mg PO TID PRN (Reason: pain) Qty: 7 RF: 0 Referrals: Katie Dobbs PA [Primary Care Provider] - Coding Level of Care Code ED Sexual Assault Response Coordinator for Chg Fwd Exam Comprehensive
[2020-12-30 12:57] VITALS: RESP 20; TEMP 36.5; O2SAT 95
== END 2020-12-30 12:57 | disposition left against medical advice (07) ==
PROVIDERS: Emergency Provider Emergency Medicine; PCP Physician Assistant
DX: R07.89 Other chest pain (principal); Z53.21 Procedure and treatment not carried out due to patient leaving prior to being seen by health care provider; Z79.82 Long term (current) use of aspirin; Z79.02 Long term (current) use of antithrombotics/antiplatelets; I25.10 Atherosclerotic heart disease of native coronary artery without angina pectoris; J44.9 Chronic obstructive pulmonary disease, unspecified; I10 Essential (primary) hypertension; Z85.3 Personal history of malignant neoplasm of breast; E78.5 Hyperlipidemia, unspecified; F17.210 Nicotine dependence, cigarettes, uncomplicated
CPT/HCPCS: 71045; 93005; 99283

== ENCOUNTER 2021-01-09 06:34 | Outpatient (CLI) | payer MEDICARE, SELFPAY ==
[2021-01-09 06:58] VITALS: BMI 23.4
--- NOTE | 2021-01-09 07:03 | ECG_ITS ---
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 Interpretive Statements NAME OF STUDY: LEXISCAN SESTAMIBI STRESS TEST INDICATION: Dyspnea on exertion PROCEDURE: At the baseline, the blood pressure was 152/78 mmHg, oxygen saturation 93% with a heart rate of 61 bpm. The electrocardiogram showed ectopic atrial rhythm, normal axis and possible old septal infarct. Nonspecific ST depression. The Lexiscan was infused over a period of 20 seconds. A total of 0.4 milligrams of Lexiscan was infused. The stress phase was continued for a total of 5 minutes. Heart rate at the end of the stress phase was 78 bpm, oxygen saturation 92% with a blood pressure of 137/76 mmHg. The EKG at the peak infusion revealed sinus rhythm with no significant ST-T wave changes. Sestamibi was injected 20 seconds after the Lexiscan infusion. Blood pressure at the end of the recovery phase was 123/77 mmHg, oxygen saturation 90% with a heart rate of 75 beats per minute. CONCLUSION: 1. No significant EKG changes with the LexiScan infusion. 2. No LexiScan induced chest pain or cardiac arrhythmia. 3. Normal blood pressure and heart rate response. 4. Sestamibi/sestamibi perfusion scan pending; see separate report. Electronically Signed On 01-14-2021 12:43:46 CDT by Nora Russell M.D. [id number]
--- NOTE | 2021-01-09 07:03 | NMCV_ITS ---
NM genaro perf SPECT r/s* [id number] Cinthia Palacios Age: 65 Gender: F : 1955 Exam Date: 01/09/2021 08:06 Ordering Phys: Katie Dobbs Technologist: LASHAY Vallejo Exam Location: [facility] Indications: DYSPNEA ON EXERTION STRESS TEST Please see separate stress test report in [facility] for full findings IMAGE PROTOCOL Rest/Stress 1 Lexiscan Day Radiopharmaceutical Dose (mCi) Administration Site Administered by Rest: Tc-99m 10.5 IV LASHAY Vallejo Sestamibi Stress:Tc-99m 32.5 IV LASHAY Young Sestamibi Rest: 09-Jan-2021 60 Discovery 630 Stress: 09-Jan-2021 30 Discovery 630 0.4mg Lexiscan. Images obtained in supine and prone position. SPECT RESULTS Technical Quality: Excellent Raw Data Analysis: Normal Image Corrections: No attenuation or motion correction applied Summed Stress Score: 4 Summed Rest Score: 6 Summed Difference Score: 1 PERFUSION FINDINGS Small sized perfusion abnormality of mild to moderate severity of apical inferior, apical lateral guerrero on rest with subtle reversibility in supine stress images and improved tracer uptake on prone stress images. FUNCTIONAL RESULTS (calculated via Gated SPECT) Stress Image LV EF (%): 78 Stress EDV (mL):59 TID: 0.98 Stress ESV (mL):13 FUNCTIONAL FINDINGS: The left ventricle is normal in size. Transient Ischemia Dilatation of 0.98. There is normal left ventricular systolic function. The left ventricular ejection fraction is normal with a value of 78%. There is normal left ventricular wall thickening and no regional wall motion abnormality. Normal end diastolic and end systolic volumes. IMPRESSIONS 1. Small sized perfusion abnormality of mild to moderate severity of apical inferior, apical lateral guerrero with subtle reversibility in supine stress images. 2. This very likely represents attenuation artifact. However, old myocardial infarction in left anterior descending artery territory cannot be completely ruled out. 3. Overall left ventricular systolic function is normal without regional wall motion abnormalities. 4. The left ventricular ejection fraction is normal with a value of 78%. 5. No coronary ischemia based on this study. Nora Russell MD (Electronically Signed) Final Date: 13 January 2021 21:29 S
--- NOTE | 2021-01-09 07:09 | USCV_ITS ---
Philip Cinthia Age: 65 Gender: F : 1955 Exam Date: 01/09/2021 07:28 Ordering Phys: Katie Dobbs Technologist: Rowena Joyner [place] [facility] [place]: M[place] BP: 129 / 61 HR: 64 Rhythm: Sinus Technical Quality: Technically difficult study MEASUREMENTS (Male / Female) Normal Values 2D ECHO LV Diastolic Diameter PLAX 3.7 cm 4.2 - 5.9 / 3.9 - 5.3 cm LV Systolic Diameter PLAX 0.8 cm IVS Diastolic Thickness 0.8 cm 0.6 - 1.0 / 0.6 - 0.9 cm IVS Systolic Thickness 1.5 cm LVPW Diastolic Thickness 1.0 cm 0.6 - 1.0 / 0.6 - 0.9 cm LVPW Systolic Thickness 2.1 cm LVOT Diameter 2.0 cm LV Ejection Fraction 2D Teich 98.5 % LV Ejection Fraction MOD 2C 65.7 % LV Ejection Fraction 2C AL 65.4 % LA Diameter 2.5 cm LA Width 3.1 cm LA Height 3.8 cm RA Width 2.2 cm RA Height 3.5 cm Aorta at Sinotubular Diameter 2.9 cm M-MODE LV Diastolic Diameter MM 4.3 cm 4.2 - 5.9 / 3.9 - 5.3 cm LV Systolic Diameter MM 2.9 cm LV Ejection Fraction MM Teich 60.2 % IVS Diastolic Thickness MM 1.3 cm 0.6 - 1.0 / 0.6 - 0.9 cm IVS Systolic Thickness MM 1.3 cm LVPW Diastolic Thickness MM 1.1 cm 0.6 - 1.0 / 0.6 - 0.9 cm LVPW Systolic Thickness MM 1.8 cm Aortic Annulus Diameter 2.4 cm LA Ao Ratio MM 1.1 MV E Point Septal Separation 0.3 cm DOPPLER AV Peak Velocity 148.0 cm/s LVOT Peak Velocity 94.0 cm/s AV Area Cont Eq vti 2.0 cm squared AV Area Cont Eq pk 1.9 cm squared MV Peak Velocity 132.0 cm/s MV Area PHT 4.3 cm squared Mitral E to A Ratio 1.6 MV E' Velocity 61.5 cm/s Mitral E to MV E' Ratio 14.6 Mitral E to LV E' Lateral Ratio 14.6 Mitral E to LV E' Septal Ratio 14.8 TR Peak Velocity 201.7 cm/s TR Peak Gradient 16.3 mmHg Right Atrial Pressure 3.0 mmHg Pulmonary Artery Systolic Pressu 19.3 mmHg PV Peak Velocity 77.0 cm/s FINDINGS Left Ventricle Normal left ventricular size and systolic function, EF 68 %. No regional wall motion abnormalities. Grade III/IV diastolic dysfunction (restrictive filling pattern), severely elevated filling pressures. Right Ventricle The right ventricle is normal in size and function. Right Atrium The right atrium is normal in size. Left Atrium The left atrium, upper limit of normal. Mitral Valve Mild-moderate mitral valve regurgitation. Aortic Valve No gross abnormalities noted Tricuspid Valve Trace tricuspid valve regurgitation. Pulmonic Valve No gross abnormalities noted Pericardium Normal pericardium without effusion. Aorta Normal ascending aorta dimension. CONCLUSIONS Normal left ventricular size and systolic function, EF 68 %. No regional wall motion abnormalities. Grade III/IV diastolic dysfunction (restrictive filling pattern), severely elevated filling pressures. The left atrium, upper limit of normal size. Mild-moderate mitral valve regurgitation. Trace tricuspid valve regurgitation. Estimated pulmonary artery peak systolic pressure of 19 mmHg There is no pericardial effusion. No previous similar study is available for comparison. Dr Marilyn Moore MD [facility] (Electronically Signed) Final Date: 09 January 2021 20:36 S
[2021-01-09] MEDS: regadenoson 0.4 Mg/5 ml Syringe IVP (09:00)
[2021-01-09 09:01] VITALS: BP 123/77; PULSE 73
== END 2021-01-09 06:35 | disposition home or self-care (01) ==
LOC: CDL 06:35
PROVIDERS: PCP Physician Assistant; Visit Provider Family Medicine
DX: R06.00 Dyspnea, unspecified (principal)
CPT/HCPCS: 78452; 93017; 93306; A9500; J2785

== ENCOUNTER 2021-01-16 13:49 | Outpatient (CLI) | payer MEDICARE, SELFPAY ==
--- NOTE | 2021-01-16 14:15 | USCV_ITS ---
PalaciosCinthia Age: 65 Gender: F : 1955 Exam Date: 01/16/2021 14:03 Ordering Phys: Marilyn Moore MD ([email or web address]) Technologist: Marina Babb [place] [facility] [place]: Pain in right leg Risk Factors: Smoker Previous Vascular Surgery: RIGHT LEFT Waveform Velocity (cm/s) Velocity (cm/s) Waveform Monophasic 91.9 Iliac Mid 182.8 Triphasic Biphasic 105.2 Iliac Distal 154.9 Biphasic Monophasic 81.5 MUTUEL TELLER 104.1 Biphasic Biphasic 101.4 SFA Prox 94.8 Triphasic Triphasic SFA Mid Biphasic 110.3 276.1 Monophasic 100.3 SFA Dist 139.3 Biphasic Biphasic 45.8 POP 89.9 Biphasic Monophasic 44.3 SUPERVISOR SPINNING 38.8 Monophasic Monophasic 14.7 DPA 29.6 Monophasic 0.8 CASTRO 0.8 FINDINGS See measurements listed above. Prior exam on 11-02-2019. Diminished resting ABIs bilaterally Weighted velocity with spectral broadening in the mid to distal SFA on the left side CONCLUSIONS 1. Abnormal resting ABIs bilaterally, suggesting mild peripheral artery disease. 2. Elevated Doppler velocity and spectral broadening in the left mid to distal superficial femoral artery, suggestive of hemodynamically significant stenosis Consider exercise CASTRO, to better evaluate the functional significance of the stenosis on the left side Compared to the study from 11/02/2019, there may not be a significant change in the CASTRO Dr Marilyn Moore MD [facility] (Electronically Signed) Final Date: 16 January 2021 17:34 S
== END 2021-01-16 13:50 | disposition home or self-care (01) ==
LOC: RAD 13:51
PROVIDERS: PCP Physician Assistant; Visit Provider Internal Medicine Cardiovascular Disease
DX: M79.604 Pain in right leg (principal); M79.605 Pain in left leg
CPT/HCPCS: 93925

== ENCOUNTER 2021-02-06 14:05 | Outpatient (CLI) | payer MEDICARE, SELFPAY ==
--- NOTE | 2021-02-06 14:15 | USCV_ITS ---
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
== END 2021-02-06 14:06 | disposition home or self-care (01) ==
LOC: US 14:12
PROVIDERS: PCP Physician Assistant; Visit Provider Internal Medicine
DX: M79.604 Pain in right leg (principal)
CPT/HCPCS: 93922

== ENCOUNTER 2021-05-20 14:35 | Outpatient (CLI) | payer MEDICARE, SELFPAY ==
--- NOTE | 2021-05-20 15:00 | USCV_ITS ---
Cinthia Palacios Age: 66 Gender: F : 1955 Exam Date: 05/20/2021 14:55 Ordering Phys: Sandor Lipscomb MD (Andy) ([email or web address] [place]) Technologist: Ileana Lee Exam Location[place] [facility] [place] Indication: CAROTID STENOSIS Risk Factors: Previous Vascular Surgery: Right Brachial BP: / Left Brachial BP: / Right Left Velocity (cm/s) Spectral Plaque Velocity (cm/s) Spectral Plaque Syst/Diast Broadening Syst/Diast Broadening 62.80/ 18.70 Prox CCA 57.30 / 8.50 82.70/ 25.40 Mid CCA 36.10 / 6.60 68.80/ 21.30 Distal CCA 38.80 / 6.60 95.30/ 41.00 Prox ICA / 107.40/41.00 Mid ICA / 91.10/ 35.30 Distal ICA / 120.70 ECA 124.60 1.30 ICA/CCA Antegrade Vertebral Antegrade 42.30/ 11.50 cm/s 71.50/ 14.00 cm/s Bi Subclavian Bi 74.30 183.3 0 CONCLUSIONS Intimal thickening in the common carotid arteries Right ICA stenosis <50%. Mild to moderate atheromatous plaque right carotid bulb/ICA. Chronic appearing Left ICA occlusion unchanged from 2019. Normal antegrade Doppler flow noted in the right vertebral artery. Normal antegrade Doppler flow noted in the left vertebral artery. Anthony Marie MD (Electronically Signed) Final Date: 20 May 2021 17:58 S
== END 2021-05-20 14:36 | disposition home or self-care (01) ==
PROVIDERS: PCP Physician Assistant; Visit Provider Thoracic Surgery (Cardiothoracic Vascular Surgery)
DX: I65.23 Occlusion and stenosis of bilateral carotid arteries (principal)
CPT/HCPCS: 93880

== ENCOUNTER 2021-06-09 13:26 | Emergency (ER) | payer MEDICARE, SELFPAY ==
[2021-06-09 13:31] VITALS: BP 102/67; PULSE 70; RESP 20; TEMP 36.6; O2SAT 93; BMI 26.1
--- NOTE | 2021-06-09 14:06 | CT_ITS ---
WS: [id number] CT ABDOMEN AND PELVIS WITH CONTRAST HISTORY: Stomach pain. TECHNIQUE: Imaging performed of the abdomen and pelvis with IV contrast. Single phase imaging of the abdomen. Coronal and sagittal reformats are submitted. All CT scans at [facility] use at [address] one of these dose optimization techniques: automated exposure control; mA and/or kV adjustment per patient size (includes targeted exams where dose is matched to clinical indication); or iterative re construction. IV CONTRAST: Omnipaque 300; 95 mL IV. Oral contrast: No DLP: 1093.71 mGy.cm COMPARISON: 05/03/2018 Lower thorax: Benign granuloma at the LEFT lung base. Heart is normal size. Small hiatal hernia. Liver/biliary system: Normal size liver. There are a few scattered hypodensities throughout the liver which are too small to characterize. The re is also very mild central bile duct dilatation. No mass. Portal vein is patent. Gallbladder: Status post cholecystectomy. Pancreas: Normal size pancreas and pancreatic duct. No adjacent inflammation. Spleen: Normal size spleen. No mass or infarct. Adrenal glands: Normal RIGHT adrenal gland. 10 mm nodule in the LEFT adrenal gland is stable and prob ably an adenoma. Right kidney: Normal. Left kidney: Normal. Aorta: Moderate atherosclerotic changes within the aorta. Normal variant celiac axis. Splenic artery gastric artery arises directly from the aorta. Calcification at the origin of the SMA. There is very minimal ectasia of aorta. No aneurysm. Lymphadenopathy: None. Free fluid: None. GI tract: Prior appendectomy. No GI tract obstruction. There are numerous diverticula in the sigmoid colon without acute inflammation. Abdominal wall: Unremarkable abdominal wall. No hernia. Pelvis: Fibroid uterus. Calcified fibroid towards the fundus. Calcification measures 17 mm. No adnexa l mass or free fluid. Bones: Unremarkable. CT/CT abdomen pelvis w con* [id number] IMPRESSION: 1. No acute abdominal or pelvic abnormalities are identified. 2. Moderate atherosclerosis within the aorta. 3. Prior appendectomy and cholecystectomy. 4. Fibroid uterus. 5. No ascites or adenopathy.
--- NOTE | 2021-06-09 14:10 | ECG_ITS ---
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 Measurements Intervals [place] Rate: 65 P: -42 NC: 115 QRS: 78 QRSD: 64 T: 81 QT: 390 QTc: 407 Interpretive Statements SINUS RHYTHM WITH SHORT NC INTERVAL/ectopic atrial rhythm LOW QRS VOLTAGE IN PRECORDIAL LEADS [QRS DEFLECTION < 1.0 mV IN CHEST LEADS] SEPTAL MYOCARDIAL INFARCTION , OF INDETERMINATE AGE [40+ ms Q WAVE IN V1/V2] Compared to ECG 12/30/2020 11:26:57 Short NC interval now present Low QRS voltage now present Myocardial infarct finding now present ST (T wave) deviation no longer present Electronically Signed On 06-09-2021 23:13:03 CDT by Marilyn Moore M.D. [id number]
--- NOTE | 2021-06-09 14:11 | W.ED.ABDPA2 ---
HPI - Abdominal Pain General: Chief Complaint: Abdominal Pain Stated Complaint: Abdominal Pain Time Seen by Provider: 06/09/21 13:58 History of Present Illness: HPI narrative: 66-year-old female presents emergency room with complaint of epigastric abdominal pain with nausea vomiting and diarrhea for the last week. She states it began after she was 1 week ago. She still has bloating and abdominal discomfort. She tried Pepcid milk of magnesia and omeprazole with no reported relief. Patient had a stress test earlier this year Lexiscan sestamibi in December at that point there was no acute coronary artery disease or was area of question but in report is listed as being attenuation artifact. MD elicited complaint: abdominal pain Pertinent past history: none Onset (ago): week(s) (1) Pain Consistency: constant Location: Epigastric Severity: severe Quality: cramping Radiation: none Migration to: no migration Exacerbating factors: nothing Relieving factors: nothing Associated Symptoms: Reports bloating, change in bowel habits, change in stool character, GI cramping, heartburn, loose stools, nausea, poor appetite and vomiting; Denies anorexia, belching, chills, coffee ground emesis, constipation, diarrhea, dyspepsia, dysuria, excessive flatus, fever(s), hematochezia, hematuria, hematemesis, fecal incontinence, melena and syncope Treatments prior to arrival: antacids Review of Systems Const: Denies: fever(s) or chills ENMT: Denies: throat pain, ear or mastoid pain, nasal discharge or nasal congestion Card: Denies: syncope Resp: Denies: dyspnea, productive cough or non-productive cough GI: Reports: nausea, vomiting, heartburn, bloating, GI cramping, change in bowel habits and change in stool character; Denies: hematemesis, coffee ground emesis, diarrhea, constipation, belching, excessive flatus, fecal incontinence, hematochezia or melena : Denies: dysuria or hematuria Skin/Breast: Denies: rash or pruritus PFSH ED PFSH: Medical History Adult hypothyroidism Anxiety Back pain Park's palsy Bilateral carotid artery stenosis without cerebral infarction CAD (coronary artery disease) Chronic obstructive asthma with exacerbation COPD (chronic obstructive pulmonary disease) Dyspnea on exertion Emphysema/COPD GERD (gastroesophageal reflux disease) History of hypertension Hx of breast cancer Hx of hyperlipidemia Hyperlipemia Hypertension Hypothyroidism Insomnia Malaise and fatigue PAD (peripheral artery disease) Palpitations Syncope Surgical History H/O tubal ligation History of cholecystectomy Status post carotid endarterectomy Family History Mother Lung disease Family/Other Cancer Grandmother CAD (coronary artery disease) Stroke Father Bleeding disorder Denies family history of Diabetes Clotting disorder Dementia Chronic kidney disease (CKD) Suicide Anesthesia complication Social History Smoking and tobacco status: current every day smoker Alcohol intake: never Physical Exam Const: COMMON NORMALS: no acute distress GENERAL APPEARANCE: cooperative and comfortable ORIENTATION/CONSCIOUSNESS: Yes awake, Yes oriented to person, Yes oriented to place and Yes oriented to time HENMT: COMMON NORMALS: normocephalic, atraumatic and hearing grossly normal bilaterally HEAD & SCALP: normocephalic and atraumatic Neck/C-Spine: COMMON NORMALS: no JVD Resp: COMMON NORMALS: normal respiratory effort, No retractions, No use of accessory muscles and clear to auscultation bilaterally AUSCULTATION: clear to auscultation bilaterally Cardio: COMMON NORMALS: no JVD, regular rate, regular rhythm and No murmurs present (Cardio) RATE: regular rate RHYTHM: regular rhythm GI: COMMON NORMALS: Soft to palpation and No hepatosplenomegaly present AUSCULTATION: Yes normoactive bowel sounds PALPATION: Yes Soft to palpation, No Tenderness to palpation present (GI), No Guarding due to palpation present (GI) and Yes No hepatosplenomegaly present Extremity: COMMON NORMALS: normal to inspection, capillary refill normal, no clubbing, cyanosis or edema, no calf tenderness and no pedal edema Neuro: SENSORIUM/ORIENTATION: Yes oriented to person, Yes oriented to place and Yes oriented to time Skin: COMMON NORMALS: no rashes or lesions noted GENERAL SKIN EXAM: no rashes or lesions noted Course Vital Signs: Vital signs: Vital Signs Temperature 97.9 F 06/09/21 13:31 Pulse Rate 66 06/09/21 14:14 Respiratory Rate 20 H 06/09/21 14:14 Blood Pressure 108/59 06/09/21 14:14 Pulse Oximetry 94 06/09/21 14:14 MDM - Abdominal Pain MDM Narrative: Medical decision making narrative: Patient markedly improved with the GI cocktail. Shared lipase is slightly ordered a CT of her abdomen does not show any pancreas involvement. My [place] to treat her parenteral resolved 40 mg twice daily add Carafate to use as needed and will have her follow-up with her primary care doctor she was drinking carbonated beverage in the emergency room encourage her to avoid those. Return if has a problem Lab Data: Labs: Lab Results 06/09/21 06/09/21 06/09/21 Range/Units 13:48 14:40 14:40 WBC 9.8 (4.0-10.0) 10^3/ uL RBC 5.58 H (4.1-5.3) 10^6/u L Hgb 14.4 (11.5-15.3) g/dL Hct 42.8 (37.0-47.0) % MCV 76.7 L (81-99) fl MCH 25.8 L (28.0-34.0) pg MCHC 33.6 (30.0-36.0) g/dL RDW 14.9 (12.1-15.1) % Plt Count 385 (130-400) 10^3/c mm MPV 9.6 (7.4-10.4) fL Neut % (Auto) 68.0 % Lymph % (Auto) 21.5 % [place] % (Auto) 7.7 % Eos % (Auto) 1.6 % Baso % (Auto) 0.8 % Neut # (Auto) 6.64 (1.8-7.7) 10^3/u L Lymph # (Auto) 2.1 (0.8-4.8) 10^3/u L [place] # (Auto) 0.8 (0.2-0.9) 10^3/u L Eos # (Auto) 0.2 (0.0-0.8) 10^3/u L Baso # (Auto) 0.1 (0.0-0.1) 10^3/u L Nucleated RBC % (a uto) 0 % Nucleated RBCs # 0.0 /100WBC Sodium 131 L (136-145) mmol/L Potassium 4.5 (3.5-5.1) mmol/L Chloride 95 L (98-107) mmol/L Carbon Dioxide 26 (22-29) mmol/L Anion Gap 14.5 (5-19) BUN 16 (8-23) mg/dL Creatinine 0.6 (0.5-0.9) mg/dL GFR Calculation 99.7 (90-130) mL/min Glucose 86 (65-115) mg/dL Calculated Osmolal ity 272 L (285-295) mOsm/k g Calcium 9.0 (8.5-10.5) mg/dL Total Bilirubin 0.2 (0.15-1.2) mg/dL AST 16 (0-32) U/L ALT 12 (0-33) U/L Alkaline Phosphata se 118 H (35-105) IU/L Troponin T Baselin e (0-10) ng/L Total Protein 6.4 L (6.6-8.7) g/dL Albumin 4.0 (3.5-5.2) g/dL Globulin 2.4 (1.3-4.6) g/dL Lipase 150 H (13-60) U/L Urine Color Yellow (Yellow) Urine Appearance Clear (CLEAR) Urine pH 5 (5-7) Ur Specific Gravit y 1.020 (1.005-1.030) Urine Protein Neg (Negative) Urine Glucose (UA) Norm (Normal) Urine Ketones Negative (Negative) Urine Blood 2+ H (Negative) Urine Nitrate Negative (Negative) Urine Bilirubin Neg (Negative) Urine Urobilinogen Norm (Negative) mg/dL Ur Leukocyte Sully ase Negative (Negative) Urine RBC 5-10 H (0-2) /hpf Urine WBC 5-10 H (0-5) /hpf Ur Squamous Epith Cells 5-10 H (0-5) /hpf Amorphous Sediment Not Reportable Urine Bacteria Trace (NONE) /hpf 06/09/21 Range/Units 14:40 WBC (4.0-10.0) 10^3/ uL RBC (4.1-5.3) 10^6/u L Hgb (11.5-15.3) g/dL Hct (37.0-47.0) % MCV (81-99) fl MCH (28.0-34.0) pg MCHC (30.0-36.0) g/dL RDW (12.1-15.1) % Plt Count (130-400) 10^3/c mm MPV (7.4-10.4) fL Neut % (Auto) % Lymph % (Auto) % [place] % (Auto) % Eos % (Auto) % Baso % (Auto) % Neut # (Auto) (1.8-7.7) 10^3/u L Lymph # (Auto) (0.8-4.8) 10^3/u L [place] # (Auto) (0.2-0.9) 10^3/u L Eos # (Auto) (0.0-0.8) 10^3/u L Baso # (Auto) (0.0-0.1) 10^3/u L Nucleated RBC % (a uto) % Nucleated RBCs # /100WBC Sodium (136-145) mmol/L Potassium (3.5-5.1) mmol/L Chloride (98-107) mmol/L Carbon Dioxide (22-29) mmol/L Anion Gap (5-19) BUN (8-23) mg/dL Creatinine (0.5-0.9) mg/dL GFR Calculation (90-130) mL/min Glucose (65-115) mg/dL Calculated Osmolal ity (285-295) mOsm/k g Calcium (8.5-10.5) mg/dL Total Bilirubin (0.15-1.2) mg/dL AST (0-32) U/L ALT (0-33) U/L Alkaline Phosphata se (35-105) IU/L Troponin T Baselin e 7 (0-10) ng/L Total Protein (6.6-8.7) g/dL Albumin (3.5-5.2) g/dL Globulin (1.3-4.6) g/dL Lipase (13-60) U/L Urine Color (Yellow) Urine Appearance (CLEAR) Urine pH (5-7) Ur Specific Gravit y (1.005-1.030) Urine Protein (Negative) Urine Glucose (UA) (Normal) Urine Ketones (Negative) Urine Blood (Negative) Urine Nitrate (Negative) Urine Bilirubin (Negative) Urine Urobilinogen (Negative) mg/dL Ur Leukocyte Sully ase (Negative) Urine RBC (0-2) /hpf Urine WBC (0-5) /hpf Ur Squamous Epith Cells (0-5) /hpf Amorphous Sediment Urine Bacteria (NONE) /hpf Discharge Plan Discharge Patient Disposition: Home Clinical Impression: Esophageal reflux Condition: Stable Prescriptions: New Protonix 40 mg tablet,delayed release (DR/EC) 40 mg PO BID 14 Days Qty: 28 RF: 0 Carafate 1 gram tablet 1 g PO Q6H PRN (Reason: as need for uncotrolled reflux) 28 Days Qty: 100 RF: 0 No Action clopidogrel [Plavix] 75 mg tablet 75 mg PO DAILY@0800 RF: 0 isosorbide mononitrate 30 mg tablet extended release 24 hr 30 mg PO DAILY@0800 RF: 0 omeprazole 40 mg capsule,delayed release(DR/EC) 20 mg PO QDAY RF: 0 levothyroxine 50 mcg capsule 50 mcg PO DAILY@0800 RF: 0 atenolol 50 mg tablet 50 mg PO DAILY@0800 RF: 0 albuterol sulfate 90 mcg/actuation HFA aerosol inhaler 2 puff INHALATION Q6H PRN (Reason: Dyspnea) RF: 0 acetaminophen 325 mg capsule 650 mg PO Q4H PRN (Reason: Pain) RF: 0 albuterol sulfate 2.5 mg /3 mL (0.083 %) solution for nebulization See Rx Instructions .ROUTE .COMPLEX RF: 0 terbinafine HCl 250 mg tablet 250 mg PO DAILY RF: 0 nitroglycerin 0.4 mg tablet, sublingual 0.4 mg sublingual Q5M PRN (Reason: Chest Pain) RF: 0 lovastatin 20 mg tablet 20 mg PO DAILY@0800 RF: 0 Vitamin D3 50,000 unit PO Q7D RF: 0 cilostazol 50 mg tablet 50 mg PO BID@0800,2000 RF: 0 amlodipine 2.5 mg tablet 2.5 mg PO DAILY@0800 RF: 0 Discharge Orders: Discharge ED (Routine); Ordered 06/09/21 Ordered By: Vasile Bledsoe Referrals: Katie Dobbs PA [Primary Care Provider] - Discharge Diet: As Directed Discharge Activity: Increase activity as tolerated Patient Instructions: Opioid Safety Activity Restrictions/Additional Instructions: Follow-up with your primary care doctor within the week. Coding Level of Care Code ED Card Seller for Tevin Gonzalez
[2021-06-09 14:14] VITALS: BP 108/59; PULSE 66; RESP 20; O2SAT 94
[2021-06-09 14:17] LABS: Bilirubin Urine Neg (Negative); Blood Urine 2+ (Negative); Glucose Urine UA Norm (Normal); Ketones Urine Negative (Negative); Leukocyte Esterase Urine Negative (Negative); Nitrate Urine Negative (Negative); Protein Urine Neg (Negative); Urine Appearance Clear (CLEAR); Urine Color Yellow (Yellow); Urobilinogen Urine Norm (Negative); pH Urine 5 (5-7)
[2021-06-09 14:18] LABS: Add Urine Microscopic? YES
[2021-06-09 14:37] LABS: Add Urine Culture? No; Bacteria Urine TRACE /hpf
[2021-06-09] MEDS: lidocaine 2% viscous 15 ML, aluminum-mag hydrox-simethicon 30 ML, sucralfate oral liq 1 GM PO (14:49)
[2021-06-09 14:56] LABS: Basophils # 0.1 10^3/uL (0.0-0.1); Basophils % 0.8 %; Eosinophils # 0.2 10^3/uL (0.0-0.8); Eosinophils % 1.6 %; Hematocrit 42.8 % (37.0-47.0); Hemoglobin 14.4 g/dL (11.5-15.3); Lymphocytes # 2.1 10^3/uL (0.8-4.8); Lymphocytes % 21.5 %; Mean Corpuscular HGB Conc 33.6 g/dL (30.0-36.0); Mean Corpuscular Hemoglobin 25.8 pg (28.0-34.0); Mean Corpuscular Volume 76.7 fl (81-99); Mean Platelet Volume 9.6 fL (7.4-10.4); Monocytes # 0.8 10^3/uL (0.2-0.9); Monocytes % 7.7 %; Neutrophils # 6.64 10^3/uL (1.8-7.7); Nucleated Red Blood Cells % 0 %; Platelet Count 385 10^3/cmm (130-400); Red Blood Count 5.58 10^6/uL (4.1-5.3); Red Cell Distribution Width 14.9 % (12.1-15.1); White Blood Count 9.8 10^3/uL (4.0-10.0)
[2021-06-09 15:20] LABS: Troponin(5th) Baseline 7 ng/L (0-10)
[2021-06-09 15:23] LABS: Alanine Aminotransferase 12 U/L (0-33); Alkaline Phosphatase 118 IU/L (35-105); Anion Gap 14.5 (5-19); Aspartate Amino Transferase 16 U/L (0-32); Blood Urea Nitrogen 16 mg/dL (8-23); Carbon Dioxide 26 mmol/L (22-29); Chloride 95 mmol/L (98-107); Globulin 2.4 g/dL (1.3-4.6); Glomerular Filtration Rate 99.7 mL/min (90-130); Glucose 86 mg/dL (65-115); Lipase 150 U/L (13-60); Osmolality Calculated 272 mOsm/kg (285-295); Potassium 4.5 mmol/L (3.5-5.1); Sodium 131 mmol/L (136-145); Total Bilirubin 0.2 mg/dL (0.15-1.2); Total Protein 6.4 g/dL (6.6-8.7)
[2021-06-09] MEDS: iohexol 300 mg/mL 100 mL Btl IV (15:33)
--- NOTE | 2021-06-09 16:10 | ECG_ITS ---
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 Measurements Intervals [place] Rate: 68 P: -41 MO: 123 QRS: 80 QRSD: 63 T: 77 QT: 389 QTc: 414 Interpretive Statements SINUS RHYTHM LOW QRS VOLTAGE IN PRECORDIAL LEADS [QRS DEFLECTION < 1.0 mV IN CHEST LEADS] SEPTAL MYOCARDIAL INFARCTION , OF INDETERMINATE AGE [40+ ms Q WAVE IN V1/V2] Compared to ECG 06/09/2021 14:14:42 Short MO interval no longer present Myocardial infarct finding still present Electronically Signed On 06-09-2021 23:52:42 CDT by Marilyn Moore M.D. [id number]
[2021-06-09] MEDS: sodium chloride 0.9% 1,000 ML 999 ML IV (16:14)
== END 2021-06-09 17:19 | disposition home or self-care (01) ==
PROVIDERS: Physician Assistant; Emergency Provider Family Medicine; PCP Physician Assistant
DX: K21.9 Gastro-esophageal reflux disease without esophagitis (principal); Z79.02 Long term (current) use of antithrombotics/antiplatelets; F17.210 Nicotine dependence, cigarettes, uncomplicated; I25.10 Atherosclerotic heart disease of native coronary artery without angina pectoris; J44.9 Chronic obstructive pulmonary disease, unspecified; I10 Essential (primary) hypertension; Z85.3 Personal history of malignant neoplasm of breast; E78.5 Hyperlipidemia, unspecified
CPT/HCPCS: 74177; 80053; 81001; 83690; 84484; 85025; 93005; 96360; 99283; J7030; Q9967

== ENCOUNTER → 2021-07-01 08:09 | Outpatient (BNVA) | payer MEDICARE, SELFPAY | PROVIDERS: PCP Physician Assistant; Referring Provider Nurse Practitioner Family; Visit Provider Specialist | DX: S59.902A Unspecified injury of left elbow, initial encounter (principal); X58.XXXA Exposure to other specified factors, initial encounter; M79.89 Other specified soft tissue disorders | CPT/HCPCS: 73080 ==

== ENCOUNTER → 2021-07-06 14:15 | Outpatient (BNVA) | payer MEDICARE, SELFPAY | PROVIDERS: PCP Physician Assistant; Visit Provider Specialist | DX: Z20.822 Contact with and (suspected) exposure to COVID-19 (principal); M71.9 Bursopathy, unspecified | CPT/HCPCS: 87635 ==

== ENCOUNTER 2021-07-10 06:50 | Day surgery (SDC) | payer MEDICARE, SELFPAY ==
[2021-07-09 13:22] VITALS: BMI 25.7
[2021-07-10] VITALS (16 sets, daily range): BP systolic 115–175; BP diastolic 61–89; PULSE 60–89; RESP 15–20; TEMP 35.8–36.5; O2SAT 89–100
--- NOTE | 2021-07-10 07:19 | W.PM.OPSUD ---
Surgery/Procedure H&P Update DATE OF PROCEDURE: July 10, 2021 DATE H&P PERFORMED: 07/01/21 H&P UPDATE INFORMATION: I have reviewed H&P completed within last 30 days, I have examined patient prior to procedure, No changes to prior documentation and H&P is in [facility] [place] EMR on date indicated PREOP DIAGNOSIS: Olecranon bursitis left elbow PLANNED PROCEDURE: Operation Date: 07/10/21 08:20 Proposed Procedures p Left Elbow Bursectomy 83835 M70.32(Left) - Gina Pollock MD Related Problem List Diagnoses (1) Olecranon bursitis, left elbow:
--- NOTE | 2021-07-10 07:20 | ANES.PREANE2 ---
Pre-Anesthetic Assessment Pre-Anesthetic Assessment: Height/Weight: Height 1.55 m Weight 61.689 kg Temp Pulse Resp BP Pulse Ox 97.3 F L 70 19 H 139/75 95 07/10/21 07:02 07/10/21 07:02 07/10/21 07:02 07/10/21 07:02 07/10/21 07:02 Preop Diagnosis: Olecranon bursitis left elbow Proposed Procedure: Operation Date: 07/10/21 08:20 Proposed Procedures p Left Elbow Bursectomy 22683 M70.32(Left) - Gina Pollock MD Familial anesthetic complications: None Was Beta Myranda taken within 24 hours: N/A Was Clonidine taken within 24 hours: N/A Last intake: . 8 hrs Social: Social History: Tobacco and No alcohol Exam: Pre-Anes Outpt Exam: alert, oriented x 3 and regular rate & rhythm Additional Exam Findings (including area of procedure): B/L wheeze Airway: MP: 2 Dentition: Other (poor dentition, visibly rotting) Pulmonary: Pulmonary: COPD CV/HEM: CV/HEM: Angina (Stable) (denies any new CP since, seeing Dr. Moore in May), HTN and PVD Comments: December 2020 Myocardial perfusion scan IMPRESSIONS 1. Small sized perfusion abnormality of mild to moderate severity of apical inferior, apical lateral guerrero with subtle reversibility in supine stress images. 2. This very likely represents attenuation artifact. However, old myocardial infarction in left anterior descending artery territory cannot be completely ruled out. 3. Overall left ventricular systolic function is normal without regional wall motion abnormalities. 4. The left ventricular ejection fraction is normal with a value of 78%. 5. No coronary ischemia based on this study. December 2020 echo CONCLUSIONS Normal left ventricular size and systolic function, EF 68 %. No regional wall motion abnormalities. Grade III/IV diastolic dysfunction (restrictive filling pattern), severely elevated filling pressures. The left atrium, upper limit of normal size. Mild-moderate mitral valve regurgitation. Trace tricuspid valve regurgitation. Estimated pulmonary artery peak systolic pressure of 19 mmHg There is no pericardial effusion. GI: Comments: hx pancreatis Metabolic: Metabolic: Thyroid Neuropsych: Comments: B/L carotid stneosis - L chronic occlusion, R < 50% s/p CEA on R - Dr. Pulido Anesthetic Plan: ASA status: 4 Anesthesia: General Risk of > 500 ml blood loss (7ml/kg in children): No PFSH Anesthesia PFSH: Medical History Adult hypothyroidism Anxiety Back pain Park's palsy Bilateral carotid artery stenosis without cerebral infarction CAD (coronary artery disease) Chronic obstructive asthma with exacerbation COPD (chronic obstructive pulmonary disease) Dyspnea on exertion Emphysema/COPD GERD (gastroesophageal reflux disease) History of hypertension Hx of breast cancer Hx of hyperlipidemia Hyperlipemia Hypertension Hypothyroidism Insomnia Malaise and fatigue PAD (peripheral artery disease) Palpitations Syncope Surgical History H/O tubal ligation History of cholecystectomy Status post carotid endarterectomy Family History Mother Lung disease Family/Other Cancer Grandmother CAD (coronary artery disease) Stroke Father Bleeding disorder Denies family history of Diabetes Clotting disorder Dementia Chronic kidney disease (CKD) Suicide Anesthesia complication Social History Alcohol intake: never Data Anesthesia CBC & Chem 7: 07/10/21 07:30 07/10/21 07:30 Cardiac Studies: Cardiac Event Monitor 08/08/20
[2021-07-10] MEDS: CELEcoxib 100 mg Capsule 400 MG PO (07:27)
[2021-07-10] MEDS: acetaminophen 1,000 MG/100 ML PIGGYBACK 400 MG IV (07:28)
[2021-07-10] MEDS: sodium chloride 0.9% 1,000 ML 30 ML IV (07:30)
[2021-07-10 07:42] LABS: Basophils # 0.1 10^3/uL (0.0-0.1); Basophils % 1.3 %; Eosinophils # 0.2 10^3/uL (0.0-0.8); Eosinophils % 2.1 %; Hematocrit 45.6 % (37.0-47.0); Hemoglobin 14.7 g/dL (11.5-15.3); Lymphocytes # 1.8 10^3/uL (0.8-4.8); Lymphocytes % 24.1 %; Mean Corpuscular HGB Conc 32.2 g/dL (30.0-36.0); Mean Corpuscular Hemoglobin 25.4 pg (28.0-34.0); Mean Corpuscular Volume 78.9 fl (81-99); Mean Platelet Volume 9.9 fL (7.4-10.4); Monocytes # 0.6 10^3/uL (0.2-0.9); Neutrophils # 4.83 10^3/uL (1.8-7.7); Neutrophils % 64.2 %; Nucleated Red Blood Cells % 0 %; Platelet Count 369 10^3/cmm (130-400); Red Blood Count 5.78 10^6/uL (4.1-5.3); Red Cell Distribution Width 15.7 % (12.1-15.1); White Blood Count 7.5 10^3/uL (4.0-10.0)
[2021-07-10 08:13] LABS: Alanine Aminotransferase 12 U/L (0-33); Albumin Level 4.1 g/dL (3.5-5.2); Alkaline Phosphatase 100 IU/L (35-105); Aspartate Amino Transferase 19 U/L (0-32); Blood Urea Nitrogen 6 mg/dL (8-23); Carbon Dioxide 28 mmol/L (22-29); Chloride 102 mmol/L (98-107); Globulin 3.4 g/dL (1.3-4.6); Glomerular Filtration Rate 99.7 mL/min (90-130); Glucose 82 mg/dL (65-115); Osmolality Calculated 285 mOsm/kg (285-295); Sodium 139 mmol/L (136-145); Total Bilirubin 0.3 mg/dL (0.15-1.2); Total Protein 7.5 g/dL (6.6-8.7)
[2021-07-10 08:18] LABS: Anion Gap 13.1 (5-19); Potassium 4.1 mmol/L (3.5-5.1)
[2021-07-10] MEDS: fentaNYL 50 mcg/mL INJ 2mL IVP ×2 (09:38→09:43)
--- NOTE | 2021-07-10 09:57 | P.OP_ITS ---
Operative Report Date of procedure: July 10, 2021 Pre-op Diagnosis: Olecranon bursitis left elbow Post-op diagnosis: same Post-op Findings: Cystic olecranon bursitis Procedure Done: Excision olecranon bursa Specimens removed/disposition: Bursa sent to pathology Pathology: other (Bursal cyst) Surgeon: Gina Pollock Manager Transmission: [facility] operating room technicians Anesthesia: General (LMA, ASA 4) Estimated blood loss (mL): 10 IV fluids (mL): 800 Urine output (mL): 0 Urine output: No Mccoy Complications: None Findings: Olecranon bursitis primarily, a large cystic structure which was removed. Condition: stable Disposition: PACU (Then to same-day surgery for discharge to home) Brief History: This 66-year-old woman presented to my office with complaints of olecranon bursitis. She notes that have been previously aspirated and had recurred. The patient states that interfered with her activities of daily living and she wanted it taken out. Risks and complications of this procedure were discussed with the patient. She understood and questions were answered preoperatively. Consents were signed and the patient was scheduled for surgery. Procedure: The patient was brought to the operating theater. The patient was administered a general anesthetic per LMA, ASA 4. Following this, the patient's left upper extremity was prepped and draped with DuraPrep. It was draped free and subsequently a sterile tourniquet was placed high on the arm. Following prepping and draping and prior to surgical incision, a surgical pause was performed. At the time of surgical pause, we confirmed the site and side of surgery as well as appropriate and timely administration of preoperative antibiotics, Ancef 2 g. A tourniquet was placed high on the arm, but it was not elevated. Incision was made to the radial side of the olecranon. It was continued prox imally and distally as necessary to allow access to the bursa. There was noted to be a large cystic structure and we were able to remove this without violation of the cyst. Further evaluation of the bursa demonstrated no significant inflammation. Aggressive hemostasis was accomplished utilizing cautery. The wound was quite dry when we were ready for closure. It was irrigated. Attention was then directed to closure. We closed the subcutaneous tissues with 3-0 Monocryl and subsequently closed the skin with a subcuticular 4-0 Monocryl. Following closure of the wound, Dermabond was utilized followed by Steri-Strips, OpSite, sterile soft roll, and an Kt wrap. The patient was then placed in an elbow splint to protect from range of motion. There were no complications. There were no specimens. The procedure was well tolerated. Patient will be discharged home to follow-up with me in the office. Associated Problem List Diagnoses (1) Olecranon bursitis, left elbow:
[2021-07-10] MEDS: albuterol 8 gm MDI 2 PUFF INHALATION (10:29)
[2021-07-10] MEDS: HYDROcodone-acetaminophen 5-325 mg Tablet 1 TAB PO (10:30)
--- NOTE | 2021-07-10 14:29 | ANE.PACU2 ---
Inpatient post-anesthesia follow up: Airway intact: Yes Vital signs: Temperature 97 F Pulse Rate 64 Respiratory Rate 18 Blood Pressure 128/88 Pulse Oximetry 96 Oxygen Delivery Me thod Room Air Oxygen Flow Rate 1 Fraction of Inspir ed Oxygen Hydration adequate: Yes Nausea and vomiting: No Pain level: 2 Mental status: Baseline
== END 2021-07-10 11:15 | disposition home or self-care (01) ==
PROVIDERS: PCP Physician Assistant; Visit Provider Specialist
PROC: (CPT 24105; principal; 2021-07-10 08:10)
DX: M70.22 Olecranon bursitis, left elbow (principal); E03.9 Hypothyroidism, unspecified; F41.9 Anxiety disorder, unspecified; I25.10 Atherosclerotic heart disease of native coronary artery without angina pectoris; J43.9 Emphysema, unspecified; I10 Essential (primary) hypertension; Z85.3 Personal history of malignant neoplasm of breast; E78.5 Hyperlipidemia, unspecified
CPT/HCPCS: 24105; 80053; 85025; 88304; 88311; 94640; 96365; J0690; J1100; J2405; J2704; J3010; J3490; J3535; J7030; J7611

== ENCOUNTER 2021-12-12 11:04 | Emergency (ER) | payer MEDICARE, SELFPAY ==
[2021-12-12 11:25] VITALS: BP 108/65; PULSE 67; RESP 16; TEMP 36.6; O2SAT 94; BMI 25.4
--- NOTE | 2021-12-12 11:41 | ECG_ITS ---
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 Measurements Intervals [place] Rate: 71 P: 76 UT: 127 QRS: 81 QRSD: 65 T: 84 QT: 385 QTc: 419 Interpretive Statements SINUS RHYTHM WITH OCCASIONAL SUPRAVENTRICULAR PREMATURE COMPLEXES Compared to ECG 06/09/2021 16:28:48 Myocardial infarct finding no longer present Electronically Signed On 12-13-2021 17:24:24 CDT by Marilyn Moore M.D. [id number]
--- NOTE | 2021-12-12 11:51 | W.ED.WEAKNES ---
Documented by User: NANCY Amador 12/12/21 14:16 HPI - Weakness General: Chief complaint: Weakness Stated complaint: Left ear with alot of pressure and drainage Time Seen by Provider: 12/12/21 11:17 History of Present Illness: Patient complains of been over pain is worse on day and she felt a gurgling in her neck and chest area that went up into her left ear area. She said she had it worse when she stood back up. Then she bent down again put her shoes on she felt the same gurgling her neck and chest area. She denies any shortness of breath chest pain fever chills has had some nausea last couple weeks. Patient is scheduled for an angiogram in a month or so with Dr. Moore. Patient does have history of left internal carotid blockage that had residual blood flow around it. Patient denies any other problems going on and currently feels just fine. Denies any ear pain or ear drainage. Denies any allergies or headaches. Associated symptoms: Denies chest pain, chills, fever(s), headache(s), nausea or vomiting Review of Systems Narrative: Patient felt/heard a gurgling in her neck and chest that went up into her earwhen she is bending over today said it happened twice. She denies any symptoms presently. Const: Denies: fever(s), chills or body aches Eyes: Denies: eye discomfort ENMT: Denies: throat pain Card: Denies: chest pain Resp: Denies: dyspnea GI: Denies: abdominal pain, nausea or vomiting Skin/Breast: Denies: rash Neuro: Denies: headache(s) Psych: Denies: depression or suicidal ideation PFSH ED PFSH: Medical History Adult hypothyroidism Anxiety Back pain Park's palsy Bilateral carotid artery stenosis without cerebral infarction CAD (coronary artery disease) Chronic obstructive asthma with exacerbation COPD (chronic obstructive pulmonary disease) Dyspnea on exertion Emphysema/COPD GERD (gastroesophageal reflux disease) History of hypertension Hx of breast cancer Hx of hyperlipidemia Hyperlipemia Hypertension Hypothyroidism Insomnia Malaise and fatigue PAD (peripheral artery disease) Palpitations Syncope Surgical History H/O tubal ligation History of cholecystectomy Status post carotid endarterectomy Family History Mother Lung disease Family/Other Cancer Grandmother CAD (coronary artery disease) Stroke Father Bleeding disorder Denies family history of Diabetes Clotting disorder Dementia Chronic kidney disease (CKD) Suicide Anesthesia complication Social History Smoking and tobacco status: current every day smoker Alcohol intake: never Physical Exam Const: COMMON NORMALS: no acute distress, patient oriented x3 and alert HENMT: COMMON NORMALS: normocephalic, external ears normal and TM's normal bilaterally HEAD & SCALP: normocephalic EXTERNAL EAR: Yes external ears normal TYMPANIC MEMBRANE: TM's normal bilaterally Eye: COMMON NORMALS: EOMs intact bilaterally Neck/C-Spine: COMMON NORMALS: no JVD CAROTIDS: Yes normal carotid upstroke (Right normal normal carotid upstroke. Left diminished), No bounding pulses, No bruit and No Carotid tenderness present Resp: COMMON NORMALS: normal respiratory effort and No use of accessory muscles Cardio: COMMON NORMALS: no JVD GI: INSPECTION: Yes normal to inspection Extremity: COMMON NORMALS: normal to inspection and full ROM Neuro: COMMON NORMALS: patient oriented x3 SENSORIUM/ORIENTATION: Yes alert COORDINATION/BALANCE: [id number] test normal and [id number] test normal SPEECH: speech normal GAIT: Yes Normal gait present MOTOR EXAM: 5/5 motor strength present throughout COORDINATION: [id number] test normal and [id number]-uq-[id number] test normal Psych: COMMON NORMALS: mental status grossly normal Skin: COMMON NORMALS: no rashes or lesions noted GENERAL SKIN EXAM: no rashes or lesions noted Course Vital Signs: Vital signs: Vital Signs Temperature 97.9 F 12/12/21 11:25 Pulse Rate 64 12/12/21 14:04 Respiratory Rate 17 12/12/21 14:04 Blood Pressure 127/79 12/12/21 14:04 Pulse Oximetry 92 12/12/21 14:04 MDM - Weakness Medical Decision Making Patient presents here since he heard gurgling in her neck and chest when she bent over. She has been symptom-free since that happened this morning. Patient said she is tired of waiting for lab test and given that the CT done she is requesting go home. Blood had to be redrawn twice and it was hemolyzed second time. Patient did not want blood drawn again and does not want to stay for CT. Patient discharged home with strict instructions to follow-up primary care provider at [facility] next week and if he has worsening symptoms return symptoms please return here. Lab Data : 12/12/21 13:29 12/12/21 13: Laboratory Results WBC 7.4 10^3/uL (4.0-10.0) 12/12/21 13: RBC 5.10 10^6/uL (4.1-5.3) 12/12/21 13: Hgb 13.7 g/dL (11.5-15.3) 12/12/21 13: Hct 41.5 % (37.0-47.0) 12/12/21 13: MCV 81.4 fl (81-99) 12/12/21 13: MCH 26.9 pg (28.0-34.0) L 12/12/21 13: MCHC 33.0 g/dL (30.0-36.0) 12/12/21 13: RDW 15.1 % (12.1-15.1) 12/12/21 13: Plt Count 369 10^3/cmm (130-400) 12/12/21 13: MPV 9.9 fL (7.4-10.4) 12/12/21 13: Neut % (Auto) 58.6 % 12/12/21 13: Lymph % (Auto) 31.7 % 12/12/21 13: [place] % (Auto) 8.6 % 12/12/21 13: Eos % (Auto) 0.3 % 12/12/21 13: Baso % (Auto) 0.5 % 12/12/21 13: Neut # (Auto) 4.34 10^3/uL (1.8-7.7) 12/12/21 13: Lymph # (Auto) 2.4 10^3/uL (0.8-4.8) 12/12/21 13: [place] # (Auto) 0.6 10^3/uL (0.2-0.9) 12/12/21 13: Eos # (Auto) 0.0 10^3/uL (0.0-0.8) 12/12/21 13:29 Baso # (Auto) 0.0 10^3/uL (0.0-0.1) 12/12/21 13:29 Nucleated RBC % (auto) 0 % 12/12/21 13:29 Nucleated RBCs # 0.0 /100WBC 12/12/21 13:29 Sodium Cancelled 12/12/21 13:29 Potassium Cancelled 12/12/21 13:29 Chloride Cancelled 12/12/21 13:29 Carbon Dioxide Cancelled 12/12/21 13:29 Anion Gap Cancelled 12/12/21 13:29 BUN Cancelled 12/12/21 13:29 Creatinine Cancelled 12/12/21 13:29 GFR Calculation Cancelled 12/12/21 13:29 Glucose Cancelled 12/12/21 13:29 Calculated Osmolality Cancelled 12/12/21 13:29 Calcium Cancelled 12/12/21 13:29 Discharge Plan Discharge Patient Disposition: Home Clinical Impression: Weakness Condition: Stable Prescriptions: No Action clopidogrel [Plavix] 75 mg tablet 75 mg PO DAILY@0800 0RF isosorbide mononitrate 30 mg tablet extended release 24 hr 30 mg PO DAILY@0800 0RF omeprazole 40 mg capsule,delayed release(DR/EC) 40 mg PO QDAY 0RF Rx Instructions: DOSE CHANGE levothyroxine 50 mcg capsule 50 mcg PO DAILY@0800 0RF atenolol 50 mg tablet 50 mg PO DAILY@0800 0RF albuterol sulfate 90 mcg/actuation HFA aerosol inhaler 2 puff INHALATION Q6H PRN (Reason: Dyspnea) 0RF acetaminophen 325 mg capsule 650 mg PO Q4H PRN (Reason: Pain) 0RF cilostazol 100 mg tablet 100 mg PO BID Qty: 180 1RF albuterol sulfate 2.5 mg /3 mL (0.083 %) solution for nebulization See Rx Instructions .ROUTE .COMPLEX 0RF Rx Instructions: 2.5 mg inhaled, DIRECTED nitroglycerin 0.4 mg tablet, sublingual 0.4 mg sublingual Q5M PRN (Reason: Chest Pain) 0RF lovastatin 20 mg tablet 20 mg PO DAILY@0800 0RF amlodipine 2.5 mg tablet 2.5 mg PO DAILY@0800 0RF Discharge Orders: Discharge ED (Routine); Ordered 12/12/21 Ordered By: Pasquale Joshi Referrals: Katie Dobbs PA [Primary Care Provider] - Discharge Diet: Usual diet Discharge Activity: Increase activity as tolerated Activity Restrictions/Additional Instructions: Up your primary care provider or return here for worsening symptoms. Recommend a follow-up appointment least next week with your primary care provider. Coding Level of Care Code ED Parlor Chaperone for Chg Fwd Exam Comprehensive Documented by User: Dalton Child DO 12/12/21 16:15 HPI - Weakness General: Chief complaint: Weakness Stated complaint: Left ear with alot of pressure and drainage Time Seen by Provider: 12/12/21 11:17 PFSH ED PFSH: Medical History Adult hypothyroidism Anxiety Back pain Park's palsy Bilateral carotid artery stenosis without cerebral infarction CAD (coronary artery disease) Chronic obstructive asthma with exacerbation COPD (chronic obstructive pulmonary disease) Dyspnea on exertion Emphysema/COPD GERD (gastroesophageal reflux disease) History of hypertension Hx of breast cancer Hx of hyperlipidemia Hyperlipemia Hypertension Hypothyroidism Insomnia Malaise and fatigue PAD (peripheral artery disease) Palpitations Syncope Surgical History H/O tubal ligation History of cholecystectomy Status post carotid endarterectomy Family History Mother Lung disease Family/Other Cancer Grandmother CAD (coronary artery disease) Stroke Father Bleeding disorder Denies family history of Diabetes Clotting disorder Dementia Chronic kidney disease (CKD) Suicide Anesthesia complication Social History Smoking and tobacco status: current every day smoker Alcohol intake: never Course ED course: I was one of the attending physicians present in the emergency department this patient was seen and evaluated by the midlevel clinician. The midlevel clinician did briefly asked me about this patient regarding whether imaging was indicated and I advised in the affirmative. The patient apparently did not want to stay for the imaging and was discharged by the midlevel clinician. This was independent of any discussion with me. I did not personally see or interview the patient and this chart is being cosigned as part of departmental policy. Vital Signs: Vital signs: Vital Signs Temperature 97.9 F 12/12/21 11:25 Pulse Rate 64 12/12/21 14:04 Respiratory Rate 17 12/12/21 14:04 Blood Pressure 127/79 12/12/21 14:04 Pulse Oximetry 92 12/12/21 14:04 MDM - Weakness Lab Data : 12/12/21 13:29 12/12/21 13:29 Laboratory Results WBC 7.4 10^3/uL (4.0-10.0) 12/12/21 13: RBC 5.10 10^6/uL (4.1-5.3) 12/12/21 13:29 Hgb 13.7 g/dL (11.5-15.3) 12/12/21 13:29 Hct 41.5 % (37.0-47.0) 12/12/21 13:29 MCV 81.4 fl (81-99) 12/12/21 13:29 MCH 26.9 pg (28.0-34.0) L 12/12/21 13:29 MCHC 33.0 g/dL (30.0-36.0) 12/12/21 13:29 RDW 15.1 % (12.1-15.1) 12/12/21 13:29 Plt Count 369 10^3/cmm (130-400) 12/12/21 13: MPV 9.9 fL (7.4-10.4) 12/12/21 13:29 Neut % (Auto) 58.6 % 12/12/21 13:29 Lymph % (Auto) 31.7 % 12/12/21 13:29 [place] % (Auto) 8.6 % 12/12/21 13:29 Eos % (Auto) 0.3 % 12/12/21 13:29 Baso % (Auto) 0.5 % 12/12/21 13:29 Neut # (Auto) 4.34 10^3/uL (1.8-7.7) 12/12/21 13:29 Lymph # (Auto) 2.4 10^3/uL (0.8-4.8) 12/12/21 13:29 [place] # (Auto) 0.6 10^3/uL (0.2-0.9) 12/12/21 13:29 Eos # (Auto) 0.0 10^3/uL (0.0-0.8) 12/12/21 13:29 Baso # (Auto) 0.0 10^3/uL (0.0-0.1) 12/12/21 13:29 Nucleated RBC % (auto) 0 % 12/12/21 13:29 Nucleated RBCs # 0.0 /100WBC 12/12/21 13:29 Sodium Cancelled 12/12/21 13:29 Potassium Cancelled 12/12/21 13:29 Chloride Cancelled 12/12/21 13:29 Carbon Dioxide Cancelled 12/12/21 13:29 Anion Gap Cancelled 12/12/21 13:29 BUN Cancelled 12/12/21 13:29 Creatinine Cancelled 12/12/21 13:29 GFR Calculation Cancelled 12/12/21 13:29 Glucose Cancelled 12/12/21 13:29 Calculated Osmolality Cancelled 12/12/21 13:29 Calcium Cancelled 12/12/21 13:29 Discharge Plan Discharge Patient Disposition: Home Clinical Impression: Weakness Condition: Stable Prescriptions: No Action clopidogrel [Plavix] 75 mg tablet 75 mg PO DAILY@0800 0RF isosorbide mononitrate 30 mg tablet extended release 24 hr 30 mg PO DAILY@0800 0RF omeprazole 40 mg capsule,delayed release(DR/EC) 40 mg PO QDAY 0RF Rx Instructions: DOSE CHANGE levothyroxine 50 mcg capsule 50 mcg PO DAILY@0800 0RF atenolol 50 mg tablet 50 mg PO DAILY@0800 0RF albuterol sulfate 90 mcg/actuation HFA aerosol inhaler 2 puff INHALATION Q6H PRN (Reason: Dyspnea) 0RF acetaminophen 325 mg capsule 650 mg PO Q4H PRN (Reason: Pain) 0RF cilostazol 100 mg tablet 100 mg PO BID Qty: 180 1RF albuterol sulfate 2.5 mg /3 mL (0.083 %) solution for nebulization See Rx Instructions .ROUTE .COMPLEX 0RF Rx Instructions: 2.5 mg inhaled, DIRECTED nitroglycerin 0.4 mg tablet, sublingual 0.4 mg sublingual Q5M PRN (Reason: Chest Pain) 0RF lovastatin 20 mg tablet 20 mg PO DAILY@0800 0RF amlodipine 2.5 mg tablet 2.5 mg PO DAILY@0800 0RF Discharge Orders: Discharge ED (Routine); Ordered 12/12/21 Ordered By: Pasquale Joshi Referrals: Katie Dobbs PA [Primary Care Provider] - Discharge Diet: Usual diet Discharge Activity: Increase activity as tolerated Activity Restrictions/Additional Instructions: Up your primary care provider or return here for worsening symptoms. Recommend a follow-up appointment least next week with your primary care provider. Coding Level of Care Code ED Parlor Chaperone for Chg Fwd Exam Comprehensive
[2021-12-12 13:39] LABS: Basophils % 0.5 %; Eosinophils % 0.3 %; Hematocrit 41.5 % (37.0-47.0); Hemoglobin 13.7 g/dL (11.5-15.3); Lymphocytes # 2.4 10^3/uL (0.8-4.8); Lymphocytes % 31.7 %; Mean Corpuscular Hemoglobin 26.9 pg (28.0-34.0); Mean Corpuscular Volume 81.4 fl (81-99); Mean Platelet Volume 9.9 fL (7.4-10.4); Monocytes # 0.6 10^3/uL (0.2-0.9); Monocytes % 8.6 %; Neutrophils # 4.34 10^3/uL (1.8-7.7); Neutrophils % 58.6 %; Nucleated Red Blood Cells % 0 %; Platelet Count 369 10^3/cmm (130-400); Red Cell Distribution Width 15.1 % (12.1-15.1); White Blood Count 7.4 10^3/uL (4.0-10.0)
[2021-12-12 14:04] VITALS: BP 127/79; PULSE 64; RESP 17; O2SAT 92
== END 2021-12-12 14:05 | disposition home or self-care (01) ==
PROVIDERS: Emergency Provider Nurse Practitioner Family; PCP Physician Assistant
DX: R53.1 Weakness (principal); Z79.02 Long term (current) use of antithrombotics/antiplatelets; I25.10 Atherosclerotic heart disease of native coronary artery without angina pectoris; J44.9 Chronic obstructive pulmonary disease, unspecified; I10 Essential (primary) hypertension; Z85.3 Personal history of malignant neoplasm of breast; E78.5 Hyperlipidemia, unspecified; F17.210 Nicotine dependence, cigarettes, uncomplicated
CPT/HCPCS: 85025; 93005; 99283

== ENCOUNTER → 2022-01-04 13:32 | Outpatient (BNVA) | payer MEDICARE, SELFPAY | PROVIDERS: PCP Physician Assistant; Visit Provider Internal Medicine Cardiovascular Disease | DX: I20.0 Unstable angina (principal); I73.9 Peripheral vascular disease, unspecified; I10 Essential (primary) hypertension; E78.2 Mixed hyperlipidemia; I65.23 Occlusion and stenosis of bilateral carotid arteries; R06.02 Shortness of breath; R06.00 Dyspnea, unspecified; F17.210 Nicotine dependence, cigarettes, uncomplicated | CPT/HCPCS: 36415; 80048; 85025; 85610; 86850; 86900; 99214 ==

== ENCOUNTER 2022-01-08 08:36 | Outpatient (CLI) | payer MEDICARE, SELFPAY ==
--- NOTE | 2022-01-08 09:35 | CT_ITS ---
WS: [id number] CT ABDOMEN PELVIS TECHNIQUE: Contrast-enhanced CT of the abdomen and pelvis with coronal and sagittal reformatted image s. CLINICAL INFORMATION: RUQ PAIN COMPARISON: June 09, 2021 DLP: 836.[address] scans at [facility] use at least one of these dose optimization techniques: automated e xposure control; mA and/or kV adjustment per patient size (includes targeted exams where dose is matc hed to clinical indication); or iterative reconstruction. FINDINGS: Diffuse fatty infiltration liver. Normal portal vein and splenic vein. Cholecystectomy clips. Normal spleen. Normal GE junction. Fatty atrophy of the pancreas. Adrenal glands are normal. Normal renal pa renchymal enhancement. No hydronephrosis. Lung bases are well aerated. Calcified granuloma LEFT lower lobe. Abdominal aortic aneurysm measuring 2.4x2.4 cm AP by transverse. Sigmoid diverticulosis. No evidence of acute diverticulitis. Normal tortuous air-filled appendix extending into the RIGHT upper quadrant. Calcified uterine fibroids. Pelvic varicosities. Fat-containing umbilical hernia. Slight anterolisth esis L3 on L4. CT/CT abdomen pelvis w con* [id number] IMPRESSION: 1. Stable infrarenal abdominal aortic aneurysm measuring 2.4 x 2.4 cm AP by tr ansverse. 2. Mild diffuse fatty infiltration liver. Prior cholecystectomy. 3. No hydronephrosis in either kidney. 4. Incidental fat-containing umbilical hernia. 5. Calcified uterine fibroid with pelvic varicosities. 6. Sigmoid diverticulosis. No evidence of acute diverticulitis. 7. Normal tortuous air-filled appendix extending into the RIGHT upper quadrant . 8. Slight anterolisthesis L3 on L4. Mild disc bulging L3-L4 L4-L5.
[2022-01-08] MEDS: iohexol 300 mg/mL 50 mL Btl PO (09:49)
[2022-01-08] MEDS: iohexol 300 mg/mL 100 mL Btl IV (11:30)
== END 2022-01-08 08:37 | disposition home or self-care (01) ==
LOC: RAD 08:39
PROVIDERS: PCP Physician Assistant; Visit Provider Physician Assistant
DX: I71.4 Abdominal aortic aneurysm, without rupture (principal); K76.0 Fatty (change of) liver, not elsewhere classified; K42.9 Umbilical hernia without obstruction or gangrene; D25.9 Leiomyoma of uterus, unspecified; K57.30 Diverticulosis of large intestine without perforation or abscess without bleeding
CPT/HCPCS: 74177; 99214

== ENCOUNTER 2022-01-11 06:05 | Outpatient (CLI) | payer MEDICARE, SELFPAY ==
[2022-01-11] VITALS (13 sets, daily range): BP systolic 95–131; BP diastolic 53–83; PULSE 61–71; RESP 15–24; TEMP 36.1; O2SAT 90–96; BMI 25.3
--- NOTE | 2022-01-11 06:00 | XACV_ITS ---
Exam Room: 2 Ht: 155 cm Wt: 61 kg BSA: 1.63 m2 Gender: Female : 1955 Any Known Allergies: Sulfa Exam Priority: Routine Procedure(s): Procedure Description: Diagnostic procedure Procedure Description: Left Heart Catheterization Procedure Description: Left ventriculography Procedure Description: Coronary Angiography Oscar KHAN; Diagnostic Cath Status: Elective Diagnostic Findings * Left main is a medium caliber short vessel with no significant stenotic lesions. * The left anterior descending artery is a medium caliber vessel which appears to taper off towards the LV apex. The artery gives off multiple diagonal branches proximally. The mid LAD was found to have around 40% tubular narrowing. The 2 diagonal branches(intermedius arteries) were found to have 20 to 30% tubular narrowing proximally. No other significant stenotic lesions.. * The left circumflex artery is a medium to large caliber dominant vessel which gives off a small to medium caliber high obtuse marginal branch. This branch was found to have a proximal tubular narrowing of around 40 to 50%. The second obtuse marginal artery was found to have a segmental narrowing off around the 30%. The rest of the vessel appears to have no significant stenotic lesions. * The right coronary artery is a small to medium caliber nondominant vessel which was found to have around 40% narrowing at the origin of the first RV branch . The first RV branch also was found to have some minimal blockages. No significant stenotic lesions.. Conclusions 1. 66-year-old white female with multiple risk factors for coronary artery disease, presenting with increasing episodes of chest pain. She had a myocardial perfusion imaging which revealed a some areas of fixed defects with very small areas of reversible defects, suggestive of myocardial scarring with possible everett-infarction ischemia. Initially it was decided to treat to her medically. Because of the worsening of the symptoms, for further evaluation of her coronary status, cardiac catheterization was recommended. Patient underwent left heart catheterization with a left and right coronary angiogram and LV angiogram today. The findings are as follows. 2. Mild to moderate diffuse coronary artery disease. Normal LV ejection fraction of 65%. Patient has a left ventricular diastolic dysfunction with an LVEDP of 28 mmHg. Diagnostic RX Recommendation: medical therapy and/or counseling LV EDP: 28 mmHg Ventriculography Ejection Fraction: 65.0 % Left Ventriculography Findings: * The LV gram was performed in the PAYNE projection. The LV cavity appears to be normal size. LV ejection fraction was 65%. LVEDP was 28 mmHg. No filling defects were noted. No significant mitral valve prolapse or mitral regurgitation.. Pressures Phase:Rest AO : 82 / 51 ( 65 ) @ 8:17:00 AM 85 / 54 ( 68 ) @ 8:23:00 AM 85 / 49 ( 65 ) @ 8:27:00 AM 132 / 26 ( 60 ) @ 8:30:00 AM 117 / 47 ( 76 ) @ 8:32:00 AM 117 / 46 ( 76 ) @ 8:32:00 AM LV : 136 / 2 / 28 @ 8:31:00 AM 112 / -13 / 7 @ 8:32:00 AM 114 / -14 / 6 @ 8:32:00 AM Valves Phase:DefaultPhase AV : 0.0 @ 7:50:02 AM AV Mean Gradient: 0.0 @ 7:50:02 AM Clinical Evaluation EBL: 5mL-10mL Procedural Details Procedure Consent Obtained. Admit Source: Out Patient. Pre-Procedure Time Out. Identified patient by full name and date of as verbalized by the patient/guarantor. Does the consent match the physician's order: Yes. Accurate & Complete Informed Consent: Yes. Inpatient/Outpatient History & Physical on Chart: Yes. If H&P is completed, is and addenduem needed: N/A; If yes, is the addendum complete: N/A. Visualize and Verify Site with Patient/Guarantor: N/A. Relevant Radiology Images available: N/A. Pre-op teaching completed and patient verbalized understanding. The risks, benefits, and alternatives of sedation and/or procedure were discussed by physician. The patient agrees to continue. Procedure started. [facility] Clinical Fraility Score: 3: Managing Well. Heel Gouger Indications: Worsening Angina. Chest Pain Symptom Assessment: Atypical Angina. Correct patient, site and procedure confirmed by cath team. Current diagnosis: Chest Pain. PERRLA. Strong, equal hand life scientist bilaterally. Lungs clear x 5 lobes. A 20 gauge IV was started in the left forearm using aseptic technique. Pre Procedural Pulses: bilateral dorsalis pedis was 1+. Pre Procedural Pulses: bilateral radial was 2+. Oxygen started at 2liters/min via nasal canula. right groin was prepped with chloroprep then draped in the usual sterile fashion. right radial was prepped with chloroprep then draped in the usual sterile fashion. Baseline sample Acquired. HR: 64 BPM. Physician notified. Physician arrived. Physician scrubbed in. Immediate Pre-Procedure Time Out. Correct Patient: Yes; Correct Procedure: Yes; Correct Site: Yes; Correct Patient Position: Yes; Correct Supplies: Yes; Dried Flammable Prep: Yes; Blood Products Available: N/A;. Lidocaine 1% infiltrated to the right radial. Arterial access obtained. A 5 greenlandic Arturo catheter in over wire. Multiple views taken of left coronary artery. Catheter redirected to the RCA. Catheter removed over the standard wire. A 5 greenlandic JR4 catheter in over wire. Multiple views taken of right coronary artery. Catheter out. A 5 greenlandic Angled Pig catheter in over wire. EDP Sample taken: LV 136/2,28; HR: 65 BPM; SpO2: 99%. LV gram performed in PAYNE @ 10 mL/second for a total of 30 mL. EDP Sample taken: LV 112/-14,7; HR: 66 BPM; SpO2: 99%. Pullback taken: LV 114/-15,6; AO 117/47(76); Mean: 0mmHg, Peak to Peak: 0mmHg, SEP: 6sec/min; HR: 66 BPM; SpO2: 99%. Catheter and wire removed. Physician scrubbed out. Physician review of cine films. A TR Band was successful obtaining hemostatsis at the Right Radial artery insertion site. Post Procedure: Pulses reassessed and unchanged. PERRLA. Strong, equal hand life scientist bilaterally. No VTE prophylaxis required. Medication's Wasted: Lidocaine 1% = 7 mL. Medication's Wasted: Nitro = 49.9 mg. Medication's Wasted: Heparin = 1000 u. Medication's Wasted: Other = Fentanyl 50 mcg. Total IV fluids: 259 mL. Post-op diagnosis: Moderate CAD. Complications: none. Estimated blood loss: 5mL-10mL. Responsiveness - Normal response to verbal stimuli; alert and oriented, PERRLA. Airway - Unaffected, no intervention required; spontaneous ventilation. Circulation: W/N/L, pulses unchanged. Nausea/Vomiting: No. Procedure completed. Patient transferred by wheelchair to CPRU. Vital chart was stopped. Access Site Site: Right Radial artery Sheath Size: 6 Fr Hemostasis Method: TR Band Hemostasis Success: Successful Procedure Medications Start: 7:01 AM Stop: 7:01 AM Medication: 0.9% Saline Amount: 75 ml/hr Route: I.V. drip Start: 7:06 AM Stop: 7:06 AM Medication: Versed Amount: 1 mg Route: I.V. Start: 7:06 AM Stop: 7:06 AM Medication: Fentanyl Amount: 25 mcg Route: I.V. Start: 7:12 AM Stop: 7:12 AM Medication: Fentanyl Amount: 25 mcg Route: I.V. Start: 7:15 AM Stop: 7:15 AM Medication: Verapamil Amount: 5 mg Route: I.A. Start: 7:15 AM Stop: 7:15 AM Medication: Nitrogylcerin Amount: 100 mcg Route: I.A. Start: 7:15 AM Stop: 7:15 AM Medication: Versed Amount: 1 mg Route: I.V. Start: 7:15 AM Stop: 7:15 AM Medication: 0.9% Saline Amount: 250 ml Route: I.V. bolus Start: 7:17 AM Stop: 7:17 AM Medication: Heparin Amount: 5000 units Route: I.V. I, the attending physician, have reviewed and verified all procedure medications. Yes, all medications given per verbal order History/Risk Factors Hypertension: Yes Dyslipidemia: Yes Peripheral Arterial Disease (PAD): Yes Myocardial Infarction (FL): No Obesity: No Renal Disease: No Tobacco Use: Current/Recent(w/in 1 year) Prior Interventions PCI: No CABG: No Valve Surgery: No Report Signatures Finalized by Dr Marilyn Moore MD [facility] on 01/11/2022 09:05 AM
--- NOTE | 2022-01-11 06:59 | W.PM.OPSUD ---
Surgery/Procedure H&P Update DATE OF PROCEDURE: January 11, 2022 DATE H&P PERFORMED: 01/04/22 H&P UPDATE INFORMATION: I have reviewed H&P completed within last 30 days, I have examined patient prior to procedure and No changes to prior documentation PREOP DIAGNOSIS: ASHD PRIMARY INDICATION FOR PROCEDURE: Chest pains, multiple risk factors for coronary artery disease and abnormal myocardial perfusion imaging PLANNED PROCEDURE: Operation Date: 01/11/22 07:00 Proposed Procedures p Cardiac Catheterization(Left) - Marilyn Moore MD PATIENT REASSESSED PRIOR TO SEDATION, WITH NO CHANGE NOTED: Yes PHYSICAL EXAM: alert, oriented x 3, clear to auscultation bilaterally and regular rate & rhythm AIRWAY EVAL/ANESTHESIA PLAN: normal airway, see other exam findings, ASA II, Local Anesthesia, Risks, benefits & alternatives of sedation and/or procedure discussed and Patient agrees to continue as planned
--- NOTE | 2022-01-11 07:45 | SUR.PHASEII ---
RECEIVED THE PATIENT BACK FROM THE [facility] VIA WHEELCHAIR S/P NORMAL [facility]. PATIENT AMBULATD TO THE BED WITHOUT DIFFICULTY. FLORICULTURE TEACHER PLACED AND VITAL SIGNS OBTAINED. NS INFUSING AT 75ML/HR TO PIV IN LEFT FOREARM. TR BAND INTACT TOTHE RIGHT WRIST WITH NO BLEEDING OR HEMATOMA NOTED. PALPABLE RADIAL PULSE. ACTIVITY RESTRICTIONS VERBALLY GIVEN TO THE PATIENT WITH HER VERBAL UNDERSTANDING NOTED. NO OTHER ASSESSMENT CHANGES NOTED FROM PRE CATH ASSESSMENT. PLAN FOR DC IN 3 HOURS.
--- NOTE | 2022-01-11 08:45 | SUR.PHASEII ---
LETTING THE AIR OUT OF THE TR BAND PER PROTOCOL. NO OTHER ASSESSMENT CHANGES NOTED AT THIS TIME.
--- NOTE | 2022-01-11 09:45 | SUR.PHASEII ---
TR BAND OFF PER PROTOCOL. A SMALL, DIME SIZED BRUISE WAS NOTED AT THE SITE WITH NO BLEEDING OR HEMATOMA NOTED.
--- NOTE | 2022-01-11 10:55 | SUR.PHASEII ---
PATIENT DISCHARGED HOME VIA WHEELCHAIR WITH [id number].
== END 2022-01-11 06:06 | disposition home or self-care (01) ==
PROVIDERS: PCP Physician Assistant; Visit Provider Internal Medicine Cardiovascular Disease
DX: I25.10 Atherosclerotic heart disease of native coronary artery without angina pectoris (principal); R07.9 Chest pain, unspecified; I10 Essential (primary) hypertension; E78.5 Hyperlipidemia, unspecified; E03.9 Hypothyroidism, unspecified; F41.9 Anxiety disorder, unspecified; J43.9 Emphysema, unspecified; Z85.3 Personal history of malignant neoplasm of breast; F17.210 Nicotine dependence, cigarettes, uncomplicated
CPT/HCPCS: 36415; 93452; 93458; C1769; C1887; C1894; J1644; J2250; J3010; J3490; Q9967

== ENCOUNTER → 2022-01-19 10:47 | Outpatient (BNVA) | payer MEDICARE, SELFPAY | PROVIDERS: PCP Physician Assistant; Visit Provider Nurse Practitioner Family | DX: Z09 Encounter for follow-up examination after completed treatment for conditions other than malignant neoplasm (principal); I25.10 Atherosclerotic heart disease of native coronary artery without angina pectoris; I10 Essential (primary) hypertension; F17.210 Nicotine dependence, cigarettes, uncomplicated | CPT/HCPCS: 36415; 80048; 99213; 99214 ==

== ENCOUNTER → 2022-03-02 10:58 | Outpatient (BNVA) | payer MEDICARE, SELFPAY | PROVIDERS: PCP Physician Assistant; Visit Provider Internal Medicine Cardiovascular Disease | DX: I25.10 Atherosclerotic heart disease of native coronary artery without angina pectoris (principal); R00.2 Palpitations; I10 Essential (primary) hypertension; E78.2 Mixed hyperlipidemia; I65.23 Occlusion and stenosis of bilateral carotid arteries; F17.200 Nicotine dependence, unspecified, uncomplicated; I49.1 Atrial premature depolarization; I49.3 Ventricular premature depolarization; I47.1 Supraventricular tachycardia | CPT/HCPCS: 93229; 99214 ==

== ENCOUNTER 2022-04-20 14:43 | Outpatient (CLI) | payer MEDICARE, SELFPAY ==
--- NOTE | 2022-04-20 14:53 | XR_ITS ---
WS: [id number] DEXA (DUAL ENERGY X-RAY ABSORPTIOMETRY) Bone mineral density was performed using a [employer] machine. HISTORY: POSTMENOPAUSAL COMPARISON: 08/07/2014 Lumbar spine BMD (L1-L4): 0.739 g/cm2 T score: -3.7 Z score: -1.9 Total hip BMD: Left: 0.577 g/cm2. T score: -3.4 Z score: -2.0 Right: 0.559 g/cm2. T score: -3.6 Z score: -2.1 10 year probability of a major osteoporotic fracture is 45.5%. Compared to the prior study from 08/07/2014. Lumbar spine bone mineral density has increased by 0.7%. Bilateral hips bone mineral density has decreased by 7.0%. XR/XR DEXA axial skeleton* [id number] IMPRESSION: OSTEOPOROSIS based upon the WHO classification for females. Significant decrease in bone mineral density within the hips since the prior .
--- NOTE | 2022-04-20 14:53 | CT_ITS ---
WS: [id number] LDCT LUNG CANCER SCREENING HISTORY: NICOTINE Dependence, cigarettes TECHNIQUE: Axial imaging performed from the apices to 1 cm below the costophrenic angles. Coronal and sagittal reformats are submitted with axial MIP series. All CT scans at [facility] use at least one of these dose optimization techniques: automated exposure control; mA and/or kV adjustment per patient size (includes targeted exams where dose is matched to clinical indication); or iterativ e reconstruction. DLP: 74.89 mGy.cm DIvol: Mean CTDIvol: 1.60 (mGy) COMPARISON: 12/18/2020 Diagnostic quality: Satisfactory Lung Nodules: No change in the 3 mm pulmonary nodule posterior RIGHT upper lobe which may be beginnin g to calcify. No new or enlarging nodules. There are a few scattered granulomata. Lungs: Chronic emphysema. Platelike areas of atelectasis at the lingula and in the RIGHT middle lobe. No interval change. Heart: Normal size heart. Scattered coronary artery calcifications. Other findings: Atherosclerosis thoracic aorta. Scattered mediastinal and hilar lymph nodes. No inter eddie change or increase in size. Mild pulmonary artery enlargement. Small hiatal hernia. No adrenal ma ss. Prior cholecystectomy. Increase in thoracic kyphosis. CT/CT lung screening [id number] IMPRESSION: LUNG-RADS: 2-Benign Appearance or Behavior FOLLOW UP: 12 Month: Continue annual screening with LDCT OTHER FINDINGS (S MODIFIER): None.
== END 2022-04-20 14:44 | disposition home or self-care (01) ==
LOC: RAD 14:44
PROVIDERS: PCP Physician Assistant; Visit Provider Physician Assistant
DX: Z12.2 Encounter for screening for malignant neoplasm of respiratory organs (principal); Z78.0 Asymptomatic menopausal state; F17.210 Nicotine dependence, cigarettes, uncomplicated; M81.0 Age-related osteoporosis without current pathological fracture
CPT/HCPCS: 71271; 77080

== ENCOUNTER → 2022-08-16 11:19 | Outpatient (BNVA) | payer MEDICARE, SELFPAY | PROVIDERS: PCP Physician Assistant; Visit Provider Internal Medicine Cardiovascular Disease | DX: I25.118 Atherosclerotic heart disease of native coronary artery with other forms of angina pectoris (principal); I10 Essential (primary) hypertension; E78.2 Mixed hyperlipidemia; I65.23 Occlusion and stenosis of bilateral carotid arteries; R00.2 Palpitations; F17.200 Nicotine dependence, unspecified, uncomplicated | CPT/HCPCS: 99214 ==

== ENCOUNTER 2022-09-01 09:23 | Outpatient (CLI) | payer MEDICARE, SELFPAY ==
--- NOTE | 2022-09-01 09:30 | USCV_ITS ---
Cinthia Palacios Age: 67 Gender: F : 1955 Exam Date: 09/01/2022 09:35 Ordering Phys: Marilyn Moore MD ([email or web address]) Technologist: LEXY Exam Location: [facility] [place] Indication: Occlusion Risk Factors: Previous Vascular Surgery: Right Brachial BP: / Left Brachial BP: / Right Left Velocity (cm/s) Spectral Plaque Velocity (cm/s) Spectral Plaque Syst/Diast Broadening Syst/Diast Broadening 76.10/ 14.30 Prox CCA 51.30 / 6.80 67.30/ 20.90 Mid CCA 49.60 / 8.50 56.20/ 19.80 Distal CCA 37.50 / 5.90 69.10/ 26.40 Prox ICA / 77.70/ 27.20 Mid ICA / 102.50/51.80 Distal ICA / 112.50 ECA 107.70 1.35 ICA/CCA Antegrade Vertebral Antegrade 46.10/ 14.50 cm/s 57.80/ 23.70 cm/s Tri Subclavian Tri 104.2 75.60 0 FINDINGS Mild diffuse plaque in the common carotid and jugular artery on the right side. Normal Doppler flow signals in the left internal carotid artery. Antegrade flow in the vertebral arteries bilaterally. Normal Doppler velocities in the subclavian arteries and external carotid arteries bilaterally. CONCLUSIONS 1. Chronically occluded left internal carotid artery. 2. Mild diffuse plaque in the common carotid and internal carotid arteries on the right side suggesting less than 50% stenosis. 3. No significant stenosis in the subclavian, vertebral or external carotid arteries bilaterally, based on the flow velocities. Compared to the study from 05/20/2021, there may not be significant change Dr Marilyn Moore MD [facility] (Electronically Signed) Final Date: 03 September 2022 17:58 S
== END 2022-09-01 09:24 | disposition home or self-care (01) ==
PROVIDERS: PCP Physician Assistant; Visit Provider Internal Medicine Cardiovascular Disease
DX: I65.23 Occlusion and stenosis of bilateral carotid arteries (principal); I77.9 Disorder of arteries and arterioles, unspecified
CPT/HCPCS: 93880

== ENCOUNTER → 2023-02-25 09:40 | Outpatient (BNVA) | payer MEDICARE, SELFPAY | PROVIDERS: PCP Physician Assistant; Visit Provider Nurse Practitioner Family | DX: I25.118 Atherosclerotic heart disease of native coronary artery with other forms of angina pectoris (principal); R06.00 Dyspnea, unspecified; I65.23 Occlusion and stenosis of bilateral carotid arteries; R00.2 Palpitations; I11.9 Hypertensive heart disease without heart failure; F17.200 Nicotine dependence, unspecified, uncomplicated | CPT/HCPCS: 36415; 80048; 83880; 84443; 85025; 99214 ==

== ENCOUNTER 2023-03-14 14:41 | Outpatient (CLI) | payer MEDICARE, SELFPAY ==
--- NOTE | 2023-03-14 15:00 | USCV_ITS ---
Philip Cinthia Age: 68 Gender: F : 1955 Exam Date: 03/14/2023 15:32 Ordering Phys: Joi Narayanan Technologist: Rowena Joyner Exam Location: [facility] [place] Indication: chest pain BP: 145 / 88 HR: 69 Rhythm: Sinus Technical Quality: Adequate MEASUREMENTS (Male / Female) Normal Values 2D ECHO LV Diastolic Diameter PLAX 3.3 cm 4.2 - 5.9 / 3.9 - 5.3 cm LV Systolic Diameter PLAX 1.6 cm IVS Diastolic Thickness 0.8 cm 0.6 - 1.0 / 0.6 - 0.9 cm IVS Systolic Thickness 1.2 cm LVPW Diastolic Thickness 0.8 cm 0.6 - 1.0 / 0.6 - 0.9 cm LVPW Systolic Thickness 1.7 cm LVOT Diameter 2.0 cm LV Ejection Fraction 2D Teich 82.5 % LV Ejection Fraction MOD 2C 65.3 % LV Ejection Fraction 2C AL 65.6 % LA Diameter 3.3 cm LA Width 2.5 cm LA Height 3.7 cm RA Width 2.2 cm RA Height 3.7 cm Aorta at Sinotubular Diameter 0.0 cm IVC Diameter 1.1 cm M-MODE Aortic Annulus Diameter 2.4 cm LA Ao Ratio MM 1.3 MV E Point Septal Separation 1.2 cm DOPPLER AV Peak Velocity 168.0 cm/s LVOT Peak Velocity 144.0 cm/s AV Area Cont Eq vti 2.6 cm squared AV Area Cont Eq pk 2.7 cm squared MV Peak Velocity 132.0 cm/s MV Area PHT 3.1 cm squared Mitral E to A Ratio 1.0 MV E' Velocity 60.0 cm/s Mitral E to MV E' Ratio 9.9 Mitral E to LV E' Lateral Ratio 9.9 Mitral E to LV E' Septal Ratio 10.1 TR Peak Velocity 97.3 cm/s TR Peak Gradient 3.8 mmHg Right Atrial Pressure 5.0 mmHg Pulmonary Artery Systolic Pressu 8.8 mmHg PV Peak Velocity 89.0 cm/s RV Acceleration Time 0.1 s RV Ejection Time 0.3 s RV AcT/ET 0.4 FINDINGS Left Ventricle Normal left ventricular size, systolic function and wall thickness, with no regional wall motion abnormalities. Left ventricular ejection fraction is estimated at 65 %. Normal diastolic function. Right Ventricle Normal right ventricular size and systolic function. Right ventricular systolic pressure 8.8 mmHg. Right Atrium Normal right atrial size. Left Atrium Normal left atrial size. Mitral Valve Structurally normal mitral valve. No mitral valve stenosis. Trace mitral valve regurgitation. Aortic Valve Structurally normal trileaflet aortic valve. No aortic valve stenosis. No aortic valve regurgitation. Tricuspid Valve Structurally normal tricuspid valve. Trace tricuspid valve regurgitation. Pulmonic Valve Pulmonic valve not well visualized. Pericardium No pericardial effusion. Aorta Normal size aortic root and proximal ascending aorta. IVC Normal IVC dimension with >50% respiratory change of the inferior vena cava. CONCLUSIONS 1. Normal left ventricular size, systolic function and wall thickness, with no regional wall motion abnormalities. Left ventricular ejection fraction is estimated at 65 %. Normal diastolic function. 2. No significant valvular abnormality. 3. When compared to study report dated 01/09/21, diastolic function has improved. Nora Russell MD (Electronically Signed) Final Date: 16 March 2023 09:05 S
== END 2023-03-14 14:42 | disposition home or self-care (01) ==
PROVIDERS: PCP Physician Assistant; Visit Provider Nurse Practitioner Family
DX: I25.118 Atherosclerotic heart disease of native coronary artery with other forms of angina pectoris (principal); I51.89 Other ill-defined heart diseases; R06.00 Dyspnea, unspecified
CPT/HCPCS: 93306

== ENCOUNTER 2023-03-16 08:16 | Outpatient (CLI) | payer MEDICARE, SELFPAY ==
--- NOTE | 2023-03-16 08:30 | USCV_ITS ---
Philip Cinthia Age: 68 Gender: F : 1955 Exam Date: 03/16/2023 08:39 Ordering Phys: Joi Narayanan Technologist: TRISTIAN Exam Location: [facility] – [place] Indication: Stenosis/Occlusion Risk Factors: Previous Vascular Surgery: Right Brachial BP: / Left Brachial BP: / Right Left Velocity (cm/s) Spectral Plaque Velocity (cm/s) Spectral Plaque Syst/Diast Broadening Syst/Diast Broadening 57.70/ 15.00 Prox CCA 58.80 / 11.50 66.00/ 19.70 Mid CCA 58.10 / 11.60 79.50/ 24.30 Distal CCA 53.20 / 10.50 72.20/ 19.40 Prox ICA / 89.80/ 30.50 Mid ICA / 87.90/ 34.80 Distal ICA / 84.30 ECA 194.50 1.13 ICA/CCA Antegrade Vertebral Antegrade 38.80/ 17.10 cm/s 57.30/ 20.60 cm/s Tri Subclavian Tri 149.9 134.1 0 0 FINDINGS No significant changes since 09/03/22 CONCLUSIONS Right ICA stenosis <50%. Mild atheromatous plaque right carotid bulb/ICA. Chronic Left ICA occlusion unchanged Normal antegrade Doppler flow noted in the right vertebral artery. Normal antegrade Doppler flow noted in the left vertebral artery. Anthony Marie MD (Electronically Signed) Final Date: 16 March 2023 15:50 S
== END 2023-03-16 08:17 | disposition home or self-care (01) ==
PROVIDERS: PCP Physician Assistant; Visit Provider Nurse Practitioner Family
DX: I65.23 Occlusion and stenosis of bilateral carotid arteries (principal)
CPT/HCPCS: 36415; 80048; 83880; 84443; 85025; 93880; 99214

== ENCOUNTER 2023-04-04 08:30 | Emergency (ER) | payer MEDICARE, SELFPAY ==
--- NOTE | 2023-04-04 08:38 | CT_ITS ---
WS: [id number] CT HEAD NONCONTRAST HISTORY: FALL ON BLOOD THINNERS TECHNIQUE: Contiguous axial imaging performed through the brain in 2.5 mm imaging. Bone and soft tiss ue windows. Sagittal and coronal reformats reviewed. All CT scans at [facility] use at least one of these dose optimization techniques: automated exposure control; mA and/or kV adjustment per pa tient size (includes targeted exams where dose is matched to clinical indication); or iterative recon struction. DLP: 1011.78 mGy-cm. COMPARISON: 01/08/2024 No acute intracranial hemorrhage, midline shift or mass effect. Mild atrophy. Significant progression of small vessel ischemic disease since 2013. Small lacunar infa rct RIGHT caudate head. No large territory infarcts. Ventricles: Normal size with no hydrocephalus. No inferior displacement of cerebellar tonsils. Paranasal sinuses: As visualized are clear. Mastoid air cells: Well pneumatized. Calvarium and scalp: No skull fracture. There is mild scalp edema along the posterior midline of the occipital bone and over the posterior RIGHT parietal bone. CT/CT head wo con* [id number] IMPRESSION: 1. No acute intracranial hemorrhage or edema. 2. Progression of small vessel ischemic disease since 2013. 3. RIGHT parietal and midline occipital scalp hematomas. No skull fracture.
[2023-04-04 08:40] VITALS: BP 172/110; PULSE 81; TEMP 36.8; O2SAT 92; BMI 27.1
--- NOTE | 2023-04-04 08:59 | XR_ITS ---
WS: [id number] XR foot LT min 3V* [id number] REASON FOR EXAM: trauma FINDINGS: No fracture or focal bone lesion. Mild narrowing with subchondral sclerosis in the DIP and PIP joints of the toes. No erosions or perio steal reaction. The remainder of the joint spaces of the forefoot are intact and relatively well-pres erved. Joint spaces of the midfoot and hindfoot are intact and relatively well-preserved. Small calcaneal plantar enthesophyte. XR/XR foot LT min 3V* [id number] IMPRESSION: No acute abnormality. 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
--- NOTE | 2023-04-04 09:22 | XRR_ITS ---
PROCEDURE INFORMATION: Exam: XR Cervical Spine Exam date and time: 04/04/2023 9:38 AM Age: 68 years old Clinical indication: Neck pain; Patient HX: PT denies trauma, history of breast cancer TECHNIQUE: Imaging protocol: Radiologic exam of the cervical spine. 3image(s) are provided. Views: 2 or 3 views. COMPARISON: 1. CT cervical spin wo con* [id number] 06/06/2017 4:[address] angio neck [id number] 12/06/2019 8:59 AM. No previous cervical spine plain film is currently available. FINDINGS: Bones/joints: There is facet, uncovertebral hypertrophy demonstrated. The odontoid tip lateral masses are partially obscured. There is chronic multilevel spurring and disc space narrowing most pronounced at the C5-C6 and C6-C7 levels. The cervicothoracic junction is obscured. There is also some spurring with slight disc space narrowing of the C3-C4 level. Osseous alignment is maintained.No interval displaced fracture or dislocation is appreciated. Soft tissues: There is some interventional type clip appearance about the right neck soft tissues. No radiopaque foreign body or subcutaneous emphysema is appreciated. No abnormal prevertebral soft tissue thickening is appreciated. Lungs: No interval lung apical pneumothorax or lobar consolidation is appreciated with some chronic appearing apical scarring right more so than left along with mild air trapping. Other findings: The paranasal sinuses appear well-aerated overall. No other significant interval changes are appreciated. XR/XR cervical spine 3V* [id number] IMPRESSION: There are chronic multilevel degenerative changes present with maintained osseous alignment.No interval fracture or dislocation is appreciated.
--- NOTE | 2023-04-04 09:29 | ED_ITS ---
HPI - Fall General: Chief Complaint: Fall Stated Complaint: possible broken foot, fall and hit head Time Seen by Provider: 04/04/23 08:31 Source: patient Mode of arrival: EMS History of Present Illness: 68-year-old female presents to the emergency room after a fall at home. She had squatted down to work it ground-level and she went to stand up she essentially had a mechanical fall she fell backwards hit the back of her head and also caught her left foot under the toe kick of a cabinet has some discomfort there. She is not on any anticoagulants there is no loss of consciousness she does have a little bit of a headache no vomiting. MD complaint: fall Onset (ago): minute(s) Fall from: other (Trying to stand up after squatting down to work a ground- level) Place fall occurred: home Loss of consciousness: None Prolonged down time: no Symptoms prior to fall: none Context: tripped/slipped Location of injury: head Location of injury - extremities: Left: foot Associated symptoms-after fall: Denies abdominal pain, chest pain, confusion, difficulty walking, headache(s), hematuria, lightheadedness, neck pain, numbne ss, short of breath, vertigo or weakness Review of Systems Const: Denies: fever(s), chills, body aches, change in appetite, fatigue or malaise ENMT: Denies: throat pain, ear or mastoid pain, nasal discharge or nasal congestion Card: Denies: chest pain or lightheadedness Resp: Denies: dyspnea, productive cough or non-productive cough GI: Denies: abdominal pain : Denies: dysuria, urinary frequency, urinary urgency or hematuria Musc: Denies: neck pain Skin/Breast: Denies: rash or pruritus Neuro: Denies: headache(s), difficulty walking, vertigo or confusion PFSH ED PFSH: Medical History Adult hypothyroidism Anxiety Atherosclerosis of coronary artery Back pain Park's palsy Bilateral carotid artery stenosis without cerebral infarction CAD (coronary artery disease) Chronic obstructive asthma with exacerbation COPD (chronic obstructive pulmonary disease) Dyspnea on exertion Emphysema/COPD GERD (gastroesophageal reflux disease) History of hypertension Hx of breast cancer Hx of hyperlipidemia Hyperlipemia Hypertension Hypothyroidism Insomnia Malaise and fatigue PAD (peripheral artery disease) Palpitations Syncope Surgical History H/O tubal ligation History of cholecystectomy Status post carotid endarterectomy Family History Mother Lung disease Family/Other Cancer Grandmother CAD (coronary artery disease) Stroke Father Bleeding disorder Denies family history of Diabetes Clotting disorder Dementia Chronic kidney disease (CKD) Suicide Anesthesia complication Social History Smoking and tobacco status: current every day smoker Alcohol intake: never Substance/Drug Use: never Physical Exam Const: GENERAL APPEARANCE: cooperative and comfortable ORIENTATION/CONSCIOUSNESS: Yes awake, Yes oriented to person, Yes oriented to place and Yes oriented to time HENMT: COMMON NORMALS: normocephalic and hearing grossly normal bilaterally HEAD & SCALP: normocephalic Resp: COMMON NORMALS: normal respiratory effort, No retractions, No use of accessory muscles and clear to auscultation bilaterally AUSCULTATION: clear to auscultation bilaterally Cardio: COMMON NORMALS: regular rate, regular rhythm and No murmurs present (Cardio) RATE: regular rate RHYTHM: regular rhythm GI: COMMON NORMALS: Soft to palpation and No hepatosplenomegaly present AUSCULTATION: Yes normoactive bowel sounds PALPATION: Yes Soft to palpation, No Tenderness to palpation present (GI), No Guarding due to palpation present (GI) and Yes No hepatosplenomegaly present Extremity: COMMON NORMALS: normal to inspection, capillary refill normal, no clubbing, cyanosis or edema, no calf tenderness and no pedal edema Neuro: SENSORIUM/ORIENTATION: Yes oriented to person, Yes oriented to place and Yes oriented to time Skin: COMMON NORMALS: no rashes or lesions noted GENERAL SKIN EXAM: no rashes or lesions noted Course Vital Signs: Vital signs: Vital Signs Temperature 98.2 F 04/04/23 08:40 Pulse Rate 70 04/04/23 10:25 Respiratory Rate 18 04/04/23 10:25 Blood Pressure 124/68 04/04/23 10:25 Pulse Oximetry 92 04/04/23 10:25 Oxygen Delivery Me thod Nasal Cannula 04/04/23 10:25 Oxygen Flow Rate 3 04/04/23 10:25 MDM - Fall Medical Decision Making Imaging reviewed. C-spine unremarkable no acute fractures CT head no bleed no fracture there is a soft tissue hematoma. X-ray of the left foot no acute fractures. Patient reports continued discomfort of the first second metatarsals. We will place her on crutches nonweightbearing and set for follow- up for podiatry. Medical Records I reviewed the patient's medical records. Lab Data I reviewed the patient's lab results. Radiology Impressions Head CT 04/04/23 08:38 IMPRESSION: 1. No acute intracranial hemorrhage or edema. 2. Progression of small vessel ischemic disease since 2013. 3. RIGHT parietal and midline occipital scalp hematomas. No skull fracture. Foot X-Ray 04/04/23 08:59 IMPRESSION: No acute abnormality. 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 Discharge Plan Discharge Patient Disposition: Home Clinical Impression: Closed head injury, Acute foot pain, Fall Condition: Stable Prescriptions: No Action clopidogrel [Plavix] 75 mg tablet 75 mg PO DAILY@0800 isosorbide mononitrate 30 mg tablet extended release 24 hr 30 mg PO DAILY@0800 omeprazole 40 mg capsule,delayed release(DR/EC) 40 mg PO DAILY PRN (Reason: Heartburn) albuterol sulfate 90 mcg/actuation HFA aerosol inhaler 2 puff INHALATION QID PRN (Reason: Shortness Of Breath) rosuvastatin 40 mg tablet 40 mg PO DAILY@17 albuterol sulfate 2.5 mg /3 mL (0.083 %) solution for nebulization 2.5 mg inhalation Q6H PRN (Reason: Shortness Of Breath) Fish Oil Concentrate 1,000 mg Capsule 1,000 mg PO DAILY@08 Tylenol Ex Str Rapid Release 500 mg Tablet 500 mg PO Q6H PRN (Reason: Pain) levothyroxine 50 mcg tablet 50 mcg PO DAILY@08 Nitrostat 0.4 mg Tablet, Sublingual 0.4 mg SUBLINGUAL Q5M PRN (Reason: Chest Pain) Rx Instructions: do not exceed 3 doses per episode cilostazol 100 mg tablet 100 mg PO BID@08,20 amlodipine 2.5 mg tablet 2.5 mg PO DAILY@08 metoprolol tartrate 50 mg tablet 50 mg PO BID@08,20 Discharge Orders: Discharge ED (Routine); Ordered 04/04/23 Ordered By: Vasile Bledsoe Referrals: Katie Dobbs PA [Primary Care Provider] - Discharge Diet: Usual diet Discharge Activity: Increase activity as tolerated Patient Instructions: Opioid Safety, Pain Management Activity Restrictions/Additional Instructions: You are seen in the emergency room today after a fall. CT of your head, and x- rays of your neck and foot were all negative. You will likely be sore for the next few days you can use Tylenol or ibuprofen [id number] follow-up with your primary care doctor as needed. 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
[2023-04-04 10:25] VITALS: BP 124/68; PULSE 70; RESP 18; O2SAT 92
[2023-04-04 11:11] VITALS: BP 161/98; PULSE 94; RESP 18; O2SAT 94
--- NOTE | 2023-04-04 14:52 | DCPLANNER ---
Addendum entered by Lisa Oneill 04/21/23 06:55: Patient had a follow up appointment scheduled with ortho - patient did attend appointment. Addendum entered by Lisa Oneill 04/05/23 14:53: Patient has a follow up appointment scheduled for Saturday, April 08, 2023 at 2:[address] Mullen at ortho. Original Note: manager pet had message to schedule a follow up appointment for patient with podiatry. manager pet sent patients information to the front office staff at podiatry. Patients information will be printed and reviewed. Clinic will call patient with appointment information.
== END 2023-04-04 11:14 | disposition home or self-care (01) ==
PROVIDERS: Emergency Provider Family Medicine; PCP Physician Assistant
DX: S09.90XA Unspecified injury of head, initial encounter (principal); M79.672 Pain in left foot; I25.10 Atherosclerotic heart disease of native coronary artery without angina pectoris; J43.9 Emphysema, unspecified; I10 Essential (primary) hypertension; E78.5 Hyperlipidemia, unspecified; F17.200 Nicotine dependence, unspecified, uncomplicated; W19.XXXA Unspecified fall, initial encounter; Y92.009 Unspecified place in unspecified non-institutional (private) residence as the place of occurrence of the external cause
CPT/HCPCS: 70450; 72040; 73630; 99284

== ENCOUNTER → 2023-04-12 13:55 | Outpatient (BNVA) | payer MEDICARE, SELFPAY | PROVIDERS: PCP Physician Assistant; Visit Provider Podiatrist Foot & Ankle Surgery | DX: S90.32XA Contusion of left foot, initial encounter (principal); S99.922A Unspecified injury of left foot, initial encounter; W19.XXXA Unspecified fall, initial encounter; Z46.89 Encounter for fitting and adjustment of other specified devices | CPT/HCPCS: 73630; 97760; 99203; L4361 ==

== ENCOUNTER 2023-04-12 15:09 | Outpatient (CLI) | payer MEDICARE, SELFPAY | END 2023-04-12 15:10 | disposition home or self-care (01) | LOC: SPT 15:10 | PROVIDERS: PCP Physician Assistant; Visit Provider Podiatrist Foot & Ankle Surgery | DX: Z46.89 Encounter for fitting and adjustment of other specified devices (principal); S90.32XD Contusion of left foot, subsequent encounter; W19.XXXD Unspecified fall, subsequent encounter | CPT/HCPCS: 97760; 99203; L4361 ==

== ENCOUNTER → 2023-04-19 10:56 | Outpatient (BNVA) | payer MEDICARE, SELFPAY | PROVIDERS: PCP Physician Assistant; Visit Provider Internal Medicine Cardiovascular Disease | DX: I25.118 Atherosclerotic heart disease of native coronary artery with other forms of angina pectoris (principal); I10 Essential (primary) hypertension; E78.2 Mixed hyperlipidemia; I73.9 Peripheral vascular disease, unspecified; F17.200 Nicotine dependence, unspecified, uncomplicated | CPT/HCPCS: 99214 ==

== ENCOUNTER → 2023-05-02 11:00 | Outpatient (BNVA) | payer MEDICARE, SELFPAY | PROVIDERS: PCP Physician Assistant; Visit Provider Podiatrist Foot & Ankle Surgery | DX: S82.832A Other fracture of upper and lower end of left fibula, initial encounter for closed fracture; X58.XXXA Exposure to other specified factors, initial encounter; M85.872 Other specified disorders of bone density and structure, left ankle and foot | CPT/HCPCS: 73600; 73630; 99214 ==

== ENCOUNTER → 2023-05-25 07:24 | Outpatient (BNVA) | payer MEDICARE, SELFPAY | PROVIDERS: Visit Provider Podiatrist Foot & Ankle Surgery | DX: S90.32XA Contusion of left foot, initial encounter (principal); S82.832A Other fracture of upper and lower end of left fibula, initial encounter for closed fracture; X58.XXXA Exposure to other specified factors, initial encounter | CPT/HCPCS: 99213 ==

== ENCOUNTER 2023-06-01 17:37 | Emergency (ER) | payer MEDICARE, SELFPAY ==
[2023-06-01 17:40] VITALS: BP 138/67; PULSE 83; RESP 17; TEMP 37.1; O2SAT 95
[2023-06-01 17:51] VITALS: PULSE 70
--- NOTE | 2023-06-01 17:52 | XRR_ITS ---
PROCEDURE INFORMATION: Exam: XR Left Foot Exam date and time: 06/01/2023 5:52 PM Age: 68 years old Clinical indication: Pain; Foot; Left; Additional info: Pain and swelling TECHNIQUE: Imaging protocol: Radiologic exam of the left foot. Views: 3 or more views. COMPARISON: No relevant prior studies available. FINDINGS: Bones/joints: Diffuse decreased bone mineral density. Calcified heel spur. Soft tissues: Soft tissue swelling about the foot. XR/XR foot LT min 3V* [id number] IMPRESSION: 1. Diffuse decreased bone mineral density. 2. Calcified heel spur. 3. Soft tissue swelling about the foot.
[2023-06-01 17:58] VITALS: BP 138/67; PULSE 79; RESP 17; O2SAT 92
--- NOTE | 2023-06-01 18:29 | CTR_ITS ---
PROCEDURE INFORMATION: Exam: CT Left Lower Extremity Without Contrast Exam date and time: 06/01/2023 6:58 PM Age: 68 years old Clinical indication: Injury or trauma; Fall; Sprain or strain; Ankle and foot; Left; Additional info: Pain, injury in March. XR neg. Still swollen and painful TECHNIQUE: Imaging protocol: CT of the left lower extremity without contrast was performed. Radiation optimization: All CT scans at this facility use at least one of these dose optimization techniques: automated exposure control; mA and/or kV adjustment per patient size (includes targeted exams where dose is matched to clinical indication); or iterative reconstruction. REPORTING DATA: Count of CT and Cardiac NM exams in prior 12 months: This patient has received [address] and 0 known cardiac nuclear medicine studies in the 12 months prior to the current study. COMPARISON: CR (LOW EXM, ) 06/01/2023 5:52 PM RADIATION DOSE METRICS: Total DLP (mGy-cm): 150 FINDINGS: Bones/joints: Subtle suspected fracture in the 1st proximal phalanx proximal medial aspect, best seen series 3, image 76, please correlate clinically. Soft tissues: Diffuse subcutaneous edema about the foot, nonspecific. CT/CT foot LT wo con* [id number] IMPRESSION: 1. Subtle suspected fracture in the 1st proximal phalanx proximal medial aspect, best seen series 3, image 76, please correlate clinically. 2. Diffuse subcutaneous edema about the foot, nonspecific.
--- NOTE | 2023-06-01 18:43 | ED_ITS ---
HPI - Extremity Problem General: Chief complaint: Extremity Injury, Lower Stated complaint: left foot swollen and pain Time Seen by Provider: 06/01/23 17:54 Source: patient Mode of arrival: wheelchair Limitations: no limitations History of Present Illness: Patient presents emergency department today for evaluation treatment of continued left ankle and left foot pain. Patient had an injury back in March for which she was seen and evaluated. Patient had negative x-rays at that time but had follow-up with Dr. Mullen with podiatry. Patient is continue to have negative x-rays and is supposed to be starting physical therapy tomorrow. However, patient states she has pain interfering with daily activity and daily swelling. Pain continues to affect the proximal dorsum of the foot extending laterally to the lateral malleolus. Patient states she takes half a Tylenol or half and ibuprofen throughout the day to help with her pain and her review shows she was asking for stronger pain medication from podiatry at her last appointment. She was encouraged to continue doing at home physical therapy and use NSAIDs. Further chart review shows that her initial x-ray showed an avulsion of the distal fibula of unknown age. Dr. Mullen correlated her tenderness with this finding and was treating for acute injury. Patient was given a walking boot as well as a walker. However, patient states she did not wear the walking boot more than 1 to 2 days as it was too big for her and she did not like the pressure put on the top of her foot. Patient has therefore been ambulating and full weightbearing on the left lower extremity since her initial injury. Review of Systems General: Reports: 10 or more systems reviewed and unremarkable except in HPI and below PFSH ED PFSH: Medical History Adult hypothyroidism Anxiety Atherosclerosis of coronary artery Back pain Park's palsy Bilateral carotid artery stenosis without cerebral infarction CAD (coronary artery disease) Chronic obstructive asthma with exacerbation COPD (chronic obstructive pulmonary disease) Dyspnea on exertion Emphysema/COPD GERD (gastroesophageal reflux disease) History of hypertension Hx of breast cancer Hx of hyperlipidemia Hyperlipemia Hypertension Hypothyroidism Insomnia Malaise and fatigue PAD (peripheral artery disease) Palpitations Syncope Surgical History H/O tubal ligation History of cholecystectomy Status post carotid endarterectomy Family History Mother Lung disease Family/Other Cancer Grandmother CAD (coronary artery disease) Stroke Father Bleeding disorder Denies family history of Diabetes Clotting disorder Dementia Chronic kidney disease (CKD) Suicide Anesthesia complication Social History Smoking and tobacco status: current every day smoker Alcohol intake: never Substance/Drug Use: never Physical Exam Const: COMMON NORMALS: no acute distress, patient oriented x3 and alert HENMT: COMMON NORMALS: normocephalic, atraumatic and hearing grossly normal bilaterally HEAD & SCALP: normocephalic and atraumatic Eye: COMMON NORMALS: Equal, round and reactive pupils present, EOMs intact bilaterally and conjunctivae normal CONJUNCTIVA: Yes conjunctivae normal PUPIL: Yes Equal, round and reactive pupils present Neck/C-Spine: COMMON NORMALS: full ROM and no JVD Lymph: LYMPHATIC: no lymphadenopathy noted Resp: COMMON NORMALS: normal respiratory effort, No retractions and No use of accessory muscles Cardio: COMMON NORMALS: no JVD and regular rate RATE: regular rate Extremity: NARRATIVE EXTREMITY EXAM: Patient has obvious edema-nonpitting, starting in the superior left ankle region extending down to the MTP joints. Patient is still worker helper to the left lateral malleoli region and medially across the proximal dorsum of the foot. Neuro: COMMON NORMALS: patient oriented x3 SENSORIUM/ORIENTATION: Yes alert Psych: COMMON NORMALS: mental status grossly normal, Normal thought process pr esent, cooperative and normal affect THOUGHT PROCESS: Normal thought process present Skin: COMMON NORMALS: no rashes or lesions noted and turgor normal GENERAL SKIN EXAM: no rashes or lesions noted and turgor normal Course Vital Signs: Vital signs: Vital Signs Temperature 98.8 F 06/01/23 17:40 Pulse Rate 83 06/01/23 20:53 Respiratory Rate 17 06/01/23 17:58 Blood Pressure 150/84 06/01/23 20:53 Pulse Oximetry 93 06/01/23 20:00 Oxygen Delivery Me thod Room Air 06/01/23 17:40 MDM - Extremity (Nontraumatic) Medical Decision Making Patient presents today continuing to complain of left ankle pain and left ankle/foot swelling. Patient has had several negative x-rays but, with concerns for decreased bone mineral density, did proceed on with a CT examination which indicated the potential for a great toe phalanx fracture but, does not correlate with the patient's complaints of left lateral ankle pain. After further review, it appears patient was supposed to be in a walking boot but, has been noncompliant. She also has not been doing physical therapy at home prior to her first appointment with physical therapy which is tomorrow. In my time spent with the patient, I do think there is some difficulty retaining the information provided regarding the patient's imaging and the findings indicated in these images. Patient states she was told she does not have a fracture. I explained to her that the x-ray indicated an injury of uncertain age but, since she is tender in this area of the doctor was treating her for an injury. We had to upper [place] back to this multiple times to explain imaging results and Dr. Mullen's treatment plan. Explained to her that since she has not been wearing the walking boot and has been ambulatory and weightbearing she has not allowed her injury to heal which is why she continues to have pain and swelling. Again, we had to [place] back to this multiple times as she was not understanding why she continues to have pain and swelling in this area. Patient states she does not have another appointment until June but I encouraged her to call to discuss getting in sooner as they need to find a way for the patient to immobilize this joint. I encourage patient to elevate her foot but she states it is uncomfortable to do that-I encouraged her to do it while she slept but states she cannot tolerate sleeping like that. Explained to the patient that if she continues to bear weight and ambulate on the extremity she will most likely have prolonged and delayed healing if not incomplete healing and continued issues with swelling. Differential Diagnosis Likely lower extremity edema (Avulsion fracture, malunion, ankle sprain); Unlikely gout, cellulitis or superficial thrombophlebitis Lab Data Radiology Impressions Foot X-Ray 06/01/23 17:52 IMPRESSION: 1. Diffuse decreased bone mineral density. 2. Calcified heel spur. 3. Soft tissue swelling about the foot. Foot CT 06/01/23 18:29 IMPRESSION: 1. Subtle suspected fracture in the 1st proximal phalanx proximal medial aspect, best seen series 3, image 76, please correlate clinically. 2. Diffuse subcutaneous edema about the foot, nonspecific. Discharge Plan Discharge Patient Disposition: Home Clinical Impression: Closed avulsion fracture of distal end of left fibula, Pain and swelling of left ankle, Swelling of left foot Condition: Stable Prescriptions: No Action clopidogrel [Plavix] 75 mg tablet 75 mg PO DAILY@0800 isosorbide mononitrate 30 mg tablet extended release 24 hr 30 mg PO DAILY@0800 omeprazole 40 mg capsule,delayed release(DR/EC) 40 mg PO DAILY PRN (Reason: Heartburn) albuterol sulfate 90 mcg/actuation HFA aerosol inhaler 2 puff INHALATION QID PRN (Reason: Shortness Of Breath) (DME) cam boot to left See Rx Instructions .Route .MEDSUPPLY Qty: 1 0RF Rx Instructions: As directed acetaminophen-codeine 300-30 mg tablet 1 tab PO Q6H PRN (Reason: pain) 7 Days Qty: 20 0RF rosuvastatin 40 mg tablet 40 mg PO DAILY@17 (DME) ASO to left See Rx Instructions .Route .MEDSUPPLY Qty: 1 0RF Rx Instructions: As directed diltiazem HCl 120 mg capsule,extended release 12 hr 120 mg PO Q12H Qty: 180 3RF magnesium L-lactate [Magtab] 84 mg tablet extended release 84 mg PO BID Qty: 60 3RF (DME) Rollator Walker See Rx Instructions .Route .MEDSUPPLY Qty: 1 0RF Rx Instructions: As directed Home albuterol sulfate 2.5 mg /3 mL (0.083 %) solution for nebulization 2.5 mg inhalation Q6H PRN (Reason: Shortness Of Breath) Fish Oil Concentrate 1,000 mg Capsule 1,000 mg PO DAILY@08 Tylenol Ex Str Rapid Release 500 mg Tablet 500 mg PO Q6H PRN (Reason: Pain) levothyroxine 50 mcg tablet 50 mcg PO DAILY@08 Nitrostat 0.4 mg Tablet, Sublingual 0.4 mg SUBLINGUAL Q5M PRN (Reason: Chest Pain) Rx Instructions: do not exceed 3 doses per episode cilostazol 100 mg tablet 100 mg PO BID@08,20 Discharge Orders: Discharge ED (Routine); Ordered 06/01/23 Ordered By: Carie Patterson Referrals: Katie Dobbs PA [Primary Care Provider] - Discharge Diet: Usual diet Discharge Activity: Limit activity as instructed Activity Restrictions/Additional Instructions: X-rays again today revealed no changes. The CT examination indicates thinning of the bones and the potential for an injury to your right great toe however, as this is not an area that hurts the most and, is not your area of concern I am still more worried about continued pain in your left lateral ankle. As I explained, previous x-rays stated you had a closed avulsion fracture of the distal end of your fibula but, was of an age unknown. Given that it correlated with your area of discomfort the orthopedic doctor did pursue it as an active injury which is why he recommended wearing the walking boot and using the walker. Is that you are unable to tolerate them and have continued to be ambulatory and weightbearing, you have continued to have pain and swelling as the injury has not had a chance to heal. I encourage you to do physical therapy and call the orthopedic office tomorrow to discuss other options for immobilization to help treat your injury. 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
[2023-06-01 20:00] VITALS: BP 152/94; PULSE 76; O2SAT 93
[2023-06-01 20:53] VITALS: BP 150/84; PULSE 83
== END 2023-06-01 20:54 | disposition home or self-care (01) ==
PROVIDERS: Emergency Provider Physician Assistant; PCP Physician Assistant
DX: S82.832A Other fracture of upper and lower end of left fibula, initial encounter for closed fracture (principal); Z79.02 Long term (current) use of antithrombotics/antiplatelets; F17.210 Nicotine dependence, cigarettes, uncomplicated; I25.10 Atherosclerotic heart disease of native coronary artery without angina pectoris; J44.9 Chronic obstructive pulmonary disease, unspecified; I10 Essential (primary) hypertension; Z85.3 Personal history of malignant neoplasm of breast; E78.5 Hyperlipidemia, unspecified; X58.XXXA Exposure to other specified factors, initial encounter
CPT/HCPCS: 73630; 73700; 99284

== ENCOUNTER 2023-06-02 07:24 | Outpatient (RCR) | payer MEDICARE, SELFPAY | END 2023-06-25 23:59 | disposition home or self-care (01) | LOC: SPT 07:24 | PROVIDERS: PCP Physician Assistant; Visit Provider Podiatrist Foot & Ankle Surgery | DX: S82.832D Other fracture of upper and lower end of left fibula, subsequent encounter for closed fracture with routine healing (principal); X58.XXXD Exposure to other specified factors, subsequent encounter | CPT/HCPCS: 97110; 97140; 97161; G0283 ==

== ENCOUNTER 2023-06-26 06:00 | Outpatient (RCR) | payer MEDICARE, SELFPAY | END 2023-07-25 13:34 | disposition home or self-care (01) | LOC: SPT 06:00 | PROVIDERS: PCP Physician Assistant; Visit Provider Podiatrist Foot & Ankle Surgery | DX: S82.832D Other fracture of upper and lower end of left fibula, subsequent encounter for closed fracture with routine healing (principal); X58.XXXD Exposure to other specified factors, subsequent encounter | CPT/HCPCS: 97140; G0283 ==

== ENCOUNTER → 2023-07-12 14:39 | Outpatient (BNVA) | payer MEDICARE, SELFPAY | PROVIDERS: PCP Physician Assistant; Visit Provider Podiatrist Foot & Ankle Surgery | DX: S99.922D Unspecified injury of left foot, subsequent encounter (principal); S82.832D Other fracture of upper and lower end of left fibula, subsequent encounter for closed fracture with routine healing; X58.XXXD Exposure to other specified factors, subsequent encounter | CPT/HCPCS: 99213 ==

== ENCOUNTER 2023-08-17 07:45 | Outpatient (CLI) | payer MEDICARE, SELFPAY ==
--- NOTE | 2023-08-17 07:49 | MR_ITS ---
WS: [id number] EXAMINATION: MR foot LT wo con* [id number] ORDER DATE: 08/17/2023 7:58 AM COMPARISON: CT 06/01/2023 HISTORY: PAIN IN LEFT FOOT CONTRAST: None. TECHNIQUE: Sagittal T1, sagittal STIR, coronal PD, coronal T2, axial T1, axial T2, and axial PD imagi ng with fat saturation technique. FINDINGS: Previously described fracture in the first proximal phalanx medial aspect not seen on this study. Degenerative changes first MTP. No edema in the first proximal phalanx. Additional edema with tiny healing fractures involving the cuneiforms and navicular also described on the ankle MRI.Additional tiny hairline fracture involving the base of the second proximal phalanx wi th edema. Distal Achilles is normal in appearance. Normal peroneal tendon sheath. Normal extensor and flexor co mpartment tendons. Normal plantar aponeurosis. Tiny plantar calcaneal spur. Mild degenerative edema i n the talus and calcaneus. Osteoporosis. Normal second tarsometatarsal alignment. IMPRESSION: 1. No visualized fractures or edema involving the first metatarsal head or proximal phalanx. Degener ative arthritis first MTP. 2. Additional small nondisplaced fractures with edema involving the cuneiforms and navicular. 3. Additional tiny hairline fracture involving the base of the second proximal phalanx with edema. 4. No metatarsal fractures. 5. No other acute findings.
--- NOTE | 2023-08-17 07:49 | MR_ITS ---
WS: [id number] EXAMINATION: MR ankle LT wo con* [id number] ORDER DATE: 08/17/2023 7:58 AM COMPARISON: None. HISTORY: PAIN IN LEFT FOOT CONTRAST: None. TECHNIQUE: Axial proton density fat sat, axial T1, sagittal proton density, sagittal STIR, coronal T2 fat sat, and coronal T1 sequences performed. After contrast, axial T1 fat sat, coronal T1 fat sat, and sagittal T1 fat sat were performed. FINDINGS: Images degraded by patient motion. Osteopenia. Tiny plantar calcaneal spur. Mild soft tissue edema lower leg and hindfoot. Arthritis of the ankle mortise. Chronic fracture of the tip of the lateral malleolus. No associated edema. Normal medial malleolus. No acute malleolar fractures. Normal bone marrow signal in the talus. Small fracture lines visualized in the cuboid with associated edema compatible with small nondisplace d fractures. Normal alignment.Additional areas of edema involving the cuneiforms with small hairline fractures. Additional suspected tiny nondisplaced fracture with edema involving the navicular. Distal Achilles is normal in appearance. Normal peroneal longus and brevis. Normal extensor and flexo r compartment tendons. Tiny joint effusion. ATF is not well visualized likely chronically torn. Anabelle l plantar aponeurosis. IMPRESSION: Images degraded by motion. 1. Mild diffuse edema with small irregular fractures involving the cuboid. 2. Additional small nondisplaced fractures involving the cuneiforms and navicular with associated ed carmelita.
== END 2023-08-17 07:46 | disposition home or self-care (01) ==
LOC: RAD 07:45
PROVIDERS: PCP Physician Assistant; Visit Provider Physician Assistant
DX: S92.215A Nondisplaced fracture of cuboid bone of left foot, initial encounter for closed fracture (principal); S92.255A Nondisplaced fracture of navicular [scaphoid] of left foot, initial encounter for closed fracture; S92.235A Nondisplaced fracture of intermediate cuneiform of left foot, initial encounter for closed fracture; S92.225A Nondisplaced fracture of lateral cuneiform of left foot, initial encounter for closed fracture; S92.245A Nondisplaced fracture of medial cuneiform of left foot, initial encounter for closed fracture; S92.512A Displaced fracture of proximal phalanx of left lesser toe(s), initial encounter for closed fracture; X58.XXXA Exposure to other specified factors, initial encounter; I65.23 Occlusion and stenosis of bilateral carotid arteries; E78.2 Mixed hyperlipidemia; I10 Essential (primary) hypertension; I25.118 Atherosclerotic heart disease of native coronary artery with other forms of angina pectoris; R00.2 Palpitations; Z79.899 Other long term (current) drug therapy
CPT/HCPCS: 73718; 73721; 99214

== ENCOUNTER → 2023-08-22 14:43 | Outpatient (BNVA) | payer MEDICARE, SELFPAY | PROVIDERS: PCP Physician Assistant; Visit Provider Podiatrist Foot & Ankle Surgery | DX: S99.922D Unspecified injury of left foot, subsequent encounter; S92.215D Nondisplaced fracture of cuboid bone of left foot, subsequent encounter for fracture with routine healing; S92.225D Nondisplaced fracture of lateral cuneiform of left foot, subsequent encounter for fracture with routine healing; S92.23 Fracture of intermediate cuneiform; S92.245D Nondisplaced fracture of medial cuneiform of left foot, subsequent encounter for fracture with routine healing; S92.255D Nondisplaced fracture of navicular [scaphoid] of left foot, subsequent encounter for fracture with routine healing; X58.XXXD Exposure to other specified factors, subsequent encounter | CPT/HCPCS: 99213 ==

== ENCOUNTER → 2023-08-25 13:35 | Outpatient (BNVA) | payer MEDICARE, SELFPAY | PROVIDERS: PCP Physician Assistant; Visit Provider Podiatrist Foot & Ankle Surgery | DX: S99.922A Unspecified injury of left foot, initial encounter; S92.212A Displaced fracture of cuboid bone of left foot, initial encounter for closed fracture; S92.222A Displaced fracture of lateral cuneiform of left foot, initial encounter for closed fracture; S92.242A Displaced fracture of medial cuneiform of left foot, initial encounter for closed fracture; S92.232A Displaced fracture of intermediate cuneiform of left foot, initial encounter for closed fracture; S92.252A Displaced fracture of navicular [scaphoid] of left foot, initial encounter for closed fracture; X58.XXXA Exposure to other specified factors, initial encounter | CPT/HCPCS: 29405 ==

== ENCOUNTER 2023-08-26 14:39 | Outpatient (CLI) | payer MEDICARE, SELFPAY ==
--- NOTE | 2023-08-26 15:00 | USCV_ITS ---
Cinthia Palacios Age: 68 Gender: F : 1955 Exam Date: 08/26/2023 14:53 Ordering Phys: Marilyn Moore MD ([email or web address]) Technologist: CT Exam [place] [facility] [place]: stenosis Risk Factors: Previous Vascular Surgery: Right Brachial BP: / Left Brachial BP: / Right Left Velocity (cm/s) Spectral Plaque Velocity (cm/s) Spectral Plaque Syst/Diast Broadening Syst/Diast Broadening 99.20/ 22.10 Prox CCA 69.20 / 8.70 86.00/ 22.10 Mid CCA 70.20 / 8.70 87.10/ 26.50 Distal CCA 55.70 / 8.70 73.90/ 24.30 Prox ICA / 113.60/37.50 Mid ICA / 77.00/ 27.40 Distal ICA / 84.90 ECA 139.60 1.14 ICA/CCA Antegrade Vertebral Antegrade 33.40/ 14.00 cm/s 41.40/ 20.00 cm/s Bi Subclavian Bi 123.5 127.2 0 0 FINDINGS known occluded left ica comp 03/16/23 No sigjnificant changes since 03/18 CONCLUSIONS Right ICA stenosis <50%. Mild atheromatous plaque right carotid bulb/ICA. Chronic occlusion LEFT ICA Normal antegrade Doppler flow noted in the right vertebral artery. Normal antegrade Doppler flow noted in the left vertebral artery. Anthony Marie MD (Electronically Signed) Final Date: 29 August 2023 09:46 S
== END 2023-08-26 14:40 | disposition home or self-care (01) ==
LOC: RAD 14:39
PROVIDERS: PCP Physician Assistant; Visit Provider Internal Medicine Cardiovascular Disease
DX: I65.23 Occlusion and stenosis of bilateral carotid arteries (principal); I77.9 Disorder of arteries and arterioles, unspecified
CPT/HCPCS: 93880

== ENCOUNTER → 2023-09-06 15:08 | Outpatient (BNVA) | payer MEDICARE, SELFPAY | PROVIDERS: PCP Physician Assistant; Visit Provider Podiatrist Foot & Ankle Surgery | DX: S99.922D Unspecified injury of left foot, subsequent encounter; S92.215D Nondisplaced fracture of cuboid bone of left foot, subsequent encounter for fracture with routine healing; S92.225D Nondisplaced fracture of lateral cuneiform of left foot, subsequent encounter for fracture with routine healing; S92.245D Nondisplaced fracture of medial cuneiform of left foot, subsequent encounter for fracture with routine healing; S92.23 Fracture of intermediate cuneiform; S92.255D Nondisplaced fracture of navicular [scaphoid] of left foot, subsequent encounter for fracture with routine healing; X58.XXXD Exposure to other specified factors, subsequent encounter | CPT/HCPCS: 29405; 73630; 99213 ==

== ENCOUNTER → 2023-09-20 15:13 | Outpatient (BNVA) | payer MEDICARE, SELFPAY | PROVIDERS: PCP Physician Assistant; Visit Provider Podiatrist Foot & Ankle Surgery | DX: S99.922D Unspecified injury of left foot, subsequent encounter (principal); S92.215D Nondisplaced fracture of cuboid bone of left foot, subsequent encounter for fracture with routine healing; S92.225D Nondisplaced fracture of lateral cuneiform of left foot, subsequent encounter for fracture with routine healing; S92.245D Nondisplaced fracture of medial cuneiform of left foot, subsequent encounter for fracture with routine healing; S92.23 Fracture of intermediate cuneiform; S92.255D Nondisplaced fracture of navicular [scaphoid] of left foot, subsequent encounter for fracture with routine healing; X58.XXXD Exposure to other specified factors, subsequent encounter | CPT/HCPCS: 73630; 99213 ==

== ENCOUNTER 2023-10-03 14:29 | Emergency (ER) | payer MEDICARE, SELFPAY ==
--- NOTE | 2023-10-03 14:35 | XRR_ITS ---
PROCEDURE INFORMATION: Exam: XR Chest Exam date and time: 10/03/2023 4:42 PM Age: 68 years old Clinical indication: Fever TECHNIQUE: Imaging protocol: Radiologic exam of the chest. Views: 1 view. COMPARISON: CT lung screening [id number] 04/20/2022 3:40 PM FINDINGS: Lungs: No acute pneumonia or edema evident. Minimal increased density is now demonstrated in the left mid-lower lung laterally. Small calcified appearing density in the right upper lobe consistent with a small granuloma. Pleural spaces: No pleural effusion identified. Heart/Mediastinum: The heart is not enlarged. The mediastinum is not enlarged. Bones/joints: No acute osseous abnormality identified. XR/XR chest 1V portable [id number] IMPRESSION: New indistinct very small density left mid-lower lung of undetermined significance. Recommend follow-up with PA and lateral chest x-ray initially for further assessment.
[2023-10-03 14:48] VITALS: BP 101/65; PULSE 90; RESP 22; TEMP 37.3; O2SAT 88; BMI 27.1
[2023-10-03] MEDS: acetaminophen 650 mg/20.3 mL UDC PO (17:14)
[2023-10-03] MEDS: dexamethasone 10 mg/mL INJ IM (17:15)
--- NOTE | 2023-10-03 17:53 | ED_ITS ---
HPI - COVID General: Chief Complaint: COVID symptoms Stated Complaint: cough, N/V/D, weak Time Seen by Provider: 10/03/23 16:45 Source: patient Mode of arrival: ambulatory Limitations: no limitations Triage information: Has fever, cough or shortness of breath . Exposure to COVID + person last 14 days History of Present Illness: 68-year-old female who states that over the last 4 days she has had cough congestion fatigue and some slight shortness of breath. Patient states she is around her grandchildren who had COVID. Patient has COPD states she wears oxygen at times she has been on 2 L she is in no distress here able speak in full senses. COVID 19 common symptoms: positive fever(s), chills, non-productive cough, fatigue and body aches; negative dyspnea, headache(s), throat pain, nausea, vomiting or diarrhea COVID 19 other sytmptoms: negative chest pain COVID Results: SARS-CoV-2 Antigen (Rapid) negative (Negative) 10/03/23 17:37 Nasal/Oral Coronavirus 2019 PCR Not detected 07/06/21 14:15 Review of Systems Const: Reports: fever(s), chills, body aches and fatigue; Denies: change in appetite ENMT: Denies: throat pain or dental pain Card: Denies: chest pain Resp: Reports: non-productive cough; Denies: dyspnea GI: Denies: abdominal pain, nausea, vomiting or diarrhea Musc: Denies: neck pain or back pain Skin/Breast: Denies: rash Neuro: Denies: headache(s) PFS ED PFSH: Medical History Atherosclerosis of coronary artery Hypertension COPD (chronic obstructive pulmonary disease) Adult hypothyroidism Hyperlipemia Dyspnea on exertion Malaise and fatigue Chronic obstructive asthma with exacerbation Emphysema/COPD GERD (gastroesophageal reflux disease) Back pain Palpitations Hypothyroidism Insomnia Park's palsy Hx of hyperlipidemia Anxiety Hx of breast cancer CAD (coronary artery disease) History of hypertension PAD (peripheral artery disease) Syncope Bilateral carotid artery stenosis without cerebral infarction Surgical History H/O tubal ligation History of cholecystectomy Status post carotid endarterectomy Family History Mother Lung disease Family/Other Cancer Grandmother CAD (coronary artery disease) Stroke Father Bleeding disorder Denies family history of Diabetes Clotting disorder Dementia Chronic kidney disease (CKD) Suicide Anesthesia complication Social History Smoking and tobacco/nicotine status: current every day tobacco/nicotine user Alcohol intake: never Substance/Drug Use: never Physical Exam Const: COMMON NORMALS: no acute distress, patient oriented x3 and healthy appearing HENMT: COMMON NORMALS: normocephalic and atraumatic HEAD & SCALP: normocephalic and atraumatic Neck/C-Spine: COMMON NORMALS: full ROM and supple Chest: COMMONS NORMALS: normal inspection of the chest and normal palpation of entire chest wall Resp: COMMON NORMALS: normal respiratory effort, No retractions and No use of accessory muscles AUSCULTATION: wheezes Cardio: COMMON NORMALS: regular rate, regular rhythm and No murmurs present (Cardio) RATE: regular rate RHYTHM: regular rhythm GI: COMMON NORMALS: Normal to inspection, nondistended, normoactive bowel sounds present, Soft to palpation, non-tender and no masses PALPATION: Yes Soft to palpation Extremity: COMMON NORMALS: normal to inspection and full ROM Neuro: COMMON NORMALS: patient oriented x3, moves all extremities and no focal motor deficits Psych: COMMON NORMALS: mental status grossly normal, Normal thought process present and cooperative THOUGHT PROCESS: Normal thought process present Skin: COMMON NORMALS: no rashes or lesions noted and no wounds GENERAL SKIN EXAM: no rashes or lesions noted Course Vital Signs: Vital signs: Vital Signs Temperature 99.2 F 10/03/23 14:48 Pulse Rate 81 10/03/23 18:33 Respiratory Rate 20 H 10/03/23 18:33 Blood Pressure 113/76 10/03/23 18:33 Pulse Oximetry 94 10/03/23 18:33 Oxygen Delivery Me thod Nasal Cannula 10/03/23 17:56 Oxygen Flow Rate 2 10/03/23 17:56 MDM - COVID Medical Decision Making Patient presents here with likely upper respiratory infection she feels much improved and would like to go home patient have a history of COPD does have a small density on her x-ray she is to follow-up with PCP in 2 to 4 weeks have a repeat x-ray she is return if worsening she understands agrees to plan. Medical Records I reviewed the patient's medical records. Lab Data Radiology Impressions Chest X-Ray 10/03/23 14:35 IMPRESSION: New indistinct very small density left mid-lower lung of undetermined significance. Recommend follow-up with PA and lateral chest x-ray initially for further assessment. Laboratory Results Influenza Type A Ag Negative (Negative) 10/03/23 16:47 Influenza Type B Ag Negative (Negative) 10/03/23 16:47 SARS-CoV-2 Ag (Rapid) negative (Negative) 10/03/23 17:37 SARS-CoV-2 Antigen (Rapid) negative (Negative) 10/03/23 17:37 Nasal/Oral Coronavirus 2019 PCR Not detected 07/06/21 14:15 All radiology interpretation(s) finalized by discharge Discharge Plan Discharge Patient Disposition: Home Clinical Impression: Upper respiratory infection Qualifiers: URI type: unspecified URI Qualified Code(s): J06.9 - Acute upper respiratory infection, unspecified Condition: Stable Prescriptions: No Action clopidogrel [Plavix] 75 mg tablet 75 mg PO DAILY@0800 isosorbide mononitrate 30 mg tablet extended release 24 hr 30 mg PO DAILY@0800 omeprazole 40 mg capsule,delayed release(DR/EC) 40 mg PO DAILY PRN (Reason: Heartburn) albuterol sulfate 90 mcg/actuation HFA aerosol inhaler 2 puff INHALATION QID PRN (Reason: Shortness Of Breath) (DME) cam boot to left See Rx Instructions .Route .MEDSUPPLY Qty: 1 0RF Rx Instructions: As directed acetaminophen-codeine 300-30 mg tablet 1 tab PO Q6H PRN (Reason: pain) 7 Days Qty: 20 0RF rosuvastatin 40 mg tablet 40 mg PO DAILY@17 metoprolol tartrate 50 mg tablet 50 mg PO Q12H Qty: 180 3RF (DME) ASO to left See Rx Instructions .Route .MEDSUPPLY Qty: 1 0RF Rx Instructions: As directed (DME) Rollator Walker See Rx Instructions .Route .MEDSUPPLY Qty: 1 0RF Rx Instructions: As directed Home magnesium L-lactate [Magtab] 84 mg tablet extended release 84 mg PO BID Qty: 60 6RF albuterol sulfate 2.5 mg /3 mL (0.083 %) solution for nebulization 2.5 mg inhalation Q6H PRN (Reason: Shortness Of Breath) Fish Oil Concentrate 1,000 mg Capsule 1,000 mg PO DAILY@08 Tylenol Ex Str Rapid Release 500 mg Tablet 500 mg PO Q6H PRN (Reason: Pain) levothyroxine 50 mcg tablet 50 mcg PO DAILY@08 Nitrostat 0.4 mg Tablet, Sublingual 0.4 mg SUBLINGUAL Q5M PRN (Reason: Chest Pain) Rx Instructions: do not exceed 3 doses per episode cilostazol 100 mg tablet 100 mg PO BID@08,20 Discharge Orders: Discharge ED (Routine); Ordered 10/03/23 Ordered By: Brittnee Bates Referrals: Katie Dobbs PA [Primary Care Provider] - Discharge Diet: Advance as tolerated Discharge Activity: Resume usual activity Patient Instructions: Upper Respiratory Infection (ED) Coding Level of Care Code ED 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
[2023-10-03 17:56] VITALS: PULSE 95; RESP 18; O2SAT 98
[2023-10-03] MEDS: ipratropium-albuterol 3 mL Neb INHALATION (17:59)
[2023-10-03 18:01] VITALS: PULSE 91
[2023-10-03 18:06] LABS: SARS Covid-2 Antigen negative (Negative)
[2023-10-03 18:28] LABS: Influenza A by IFA Negative (Negative); Influenza B by IFA Negative (Negative)
[2023-10-03 18:33] VITALS: BP 113/76; PULSE 81; RESP 20; O2SAT 94
== END 2023-10-03 18:33 | disposition home or self-care (01) ==
PROVIDERS: Emergency Provider Emergency Medicine; PCP Physician Assistant
DX: J06.9 Acute upper respiratory infection, unspecified (principal); Z79.02 Long term (current) use of antithrombotics/antiplatelets; Z11.52 Encounter for screening for COVID-19; Z72.0 Tobacco use; I25.10 Atherosclerotic heart disease of native coronary artery without angina pectoris; I10 Essential (primary) hypertension; J44.9 Chronic obstructive pulmonary disease, unspecified; E78.5 Hyperlipidemia, unspecified; Z85.3 Personal history of malignant neoplasm of breast
CPT/HCPCS: 71045; 87426; 87804; 94640; 96372; 99284; J1100

== ENCOUNTER 2023-10-04 20:12 | Inpatient (IN) | payer MEDICARE, SELFPAY ==
[2023-10-04] VITALS (7 sets, daily range): BP systolic 127–178; BP diastolic 70–94; PULSE 70–84; RESP 18–29; TEMP 36.3; O2SAT 89–93; BMI 27.1
[2023-10-04] MEDS: ipratropium-albuterol 3 mL Neb 6 ML INHALATION (21:40)
[2023-10-04] MEDS: predniSONE 20 mg Tablet 40 MG PO (21:41)
[2023-10-04] MEDS: ALPRAZolam 0.5 mg Tablet PO (21:41)
--- NOTE | 2023-10-04 21:57 | ED_ITS ---
HPI - SOB/Dyspnea General: Chief Complaint: Shortness of Breath/Dyspnea Stated Complaint: SoB Time Seen by Provider: 10/04/23 20:34 History of Present Illness: HPI Narrative: 68 yo f with hx of smoking, copd, hx of chronic hypoxic resp failure who has been around family who are sick with same symptoms as her: fatigue, body aches, headache, cough, pain with coughing, diarrhea, poor appettite. Patient reports she hasn't used her supplemental oxygen for about 2 years until today. She was working around the house and doing personal care things and was getting really short of breath. SHe arrives using 2LPM by ND. Patient reports she has been prescribed trilogy and ipratropium in the past but they were too expensive so she does not have it. She also reports that she does have albuterol available to her. However, she has not attempted to use it today. Finally, she reports that her oxygen concentrator said that her columns may have a problem. She points out to metal cylinders on either side of her concentrator. She has had wheezing and occasionally has phlegm production which is mostly clear. She was seen here yesterday and had a chest x-ray with possible small infiltrate. She was tested for flu and COVID by antigen test and they were negative. She was given a steroid shot in the emergency department and discharged. Associated symptoms: Deny abdominal pain, syncope or vomiting Review of Systems General: Reports: 10 or more systems reviewed and unremarkable except in HPI and below Eyes: Denies: change in vision Card: Denies: edema or syncope Resp: Denies: dyspnea GI: Denies: abdominal pain or vomiting : Denies: flank pain, dysuria or urinary frequency Musc: Denies: neck pain or extremity swelling Skin/Breast: Denies: rash or erythema Neuro: Denies: numbness in extremities, weakness in extremities or lack of coordination PFS ED PFSH: Medical History Atherosclerosis of coronary artery Hypertension COPD (chronic obstructive pulmonary disease) Adult hypothyroidism Hyperlipemia Dyspnea on exertion Malaise and fatigue Chronic obstructive asthma with exacerbation Emphysema/COPD GERD (gastroesophageal reflux disease) Back pain Palpitations Hypothyroidism Insomnia Park's palsy Hx of hyperlipidemia Anxiety Hx of breast cancer CAD (coronary artery disease) History of hypertension PAD (peripheral artery disease) Syncope Bilateral carotid artery stenosis without cerebral infarction Surgical History H/O tubal ligation History of cholecystectomy Status post carotid endarterectomy Family History Mother Lung disease Family/Other Cancer Grandmother CAD (coronary artery disease) Stroke Father Bleeding disorder Denies family history of Diabetes Clotting disorder Dementia Chronic kidney disease (CKD) Suicide Anesthesia complication Social History Smoking and tobacco/nicotine status: current every day tobacco/nicotine user Alcohol intake: never Substance/Drug Use: never Physical Exam Narrative: EXAM NARRATIVE: 68-year-old female who has stigmata of c hronic tobacco smoking present in the hair and nails. She is tachypneic in the mid 20s. She is able to speak inl complete sentences. She seems very animated and anxious. She has flight of ideas and gets easily sidetracked. She does have a few rales plus diminished breath sounds, and faint end expiratory wheeze. She does have a barrel chest ap pearance. She does have a slightly delayed expiratory phase. No lower extremity edema. She does have rhinorrhea and nasal congestion. Const: COMMON NORMALS: alert and well nourished HENMT: COMMON NORMALS: normocephalic, atraumatic and external ears normal HEAD & SCALP: normocephalic and atraumatic EXTERNAL EAR: Yes external ears normal MOUTH: no muffled voice Eye: COMMON NORMALS: EOMs intact bilaterally, conjunctivae normal and no scleral icterus CONJUNCTIVA: Yes conjunctivae normal Neck/C-Spine: GENERAL: Yes normal visual inspection and Yes trachea midline GI: COMMON NORMALS: Soft to palpation and non-tender PALPATION: Yes Soft to palpation and No Guarding due to palpation present (GI) Extremity: COMMON NORMALS: normal to inspection Neuro: COMMON NORMALS: moves all extremities, no focal motor deficits and no sensory deficits noted SENSORIUM/ORIENTATION: Yes alert SPEECH: speech normal Psych: COMMON NORMALS: cooperative MOOD & AFFECT: Yes anxious Skin: COMMON NORMALS: no rashes or lesions noted, turgor normal and no jaundice GENERAL SKIN EXAM: no rashes or lesions noted and turgor normal Course Vital Signs: Vital signs: Vital Signs Temperature 97.4 F L 10/04/23 20:15 Pulse Rate 71 10/04/23 21:50 Respiratory Rate 29 H 10/04/23 21:42 Blood Pressure 142/84 10/04/23 21:42 Pulse Oximetry 93 10/04/23 21:42 Oxygen Delivery Me thod Nasal Cannula 10/04/23 21:42 Oxygen Flow Rate 2 10/04/23 21:42 MDM - SOB/Dyspnea Medical Decision Making 68-year-old female who presents the emergency department with what appears to be respiratory infection that has exacerbated her COPD. She is requiring oxygen; she has a history of chronic hypoxic respiratory failure but has not been using oxygen for the last 2 years. She wants to have her oxygen concentrator serviced to make sure that it is safe. It is noted that she did not attempt any breathing treatments at home; DuoNeb has been ordered here. Respiratory therapy has called the home health service to service her home oxygen concentrator. I am going to add prednisone and some azithromycin for the questionable chest x- ray finding yesterday. UPDATE: After Duoneb, her work of breathing has improved but not returned to baseline. Her prolonged expiratory phase has resolved. However, she is hypoxic on 2LPM at 88% on reassessment. Patient feels it would be best if we changed plans and did some further workup and move towards admission as she's feeling very fatigued with her work of breathing. I have added CXR, cbc, cmp, bnp, and abg. PCO2 52.4, pH 7.32, pO2 71.4 on 2lpm nc. Mild acute respiratory acidosis with hypoxemia. Discussed with Dr Torres for admission. She requested addition of d-dimer. Lab Data Labs/Radiology: Radiology Impressions Chest X-Ray 10/04/23 22:14 IMPRESSION: No acute findings. 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
--- NOTE | 2023-10-04 22:14 | XRR_ITS ---
PROCEDURE INFORMATION: Exam: XR Chest Exam date and time: 10/04/2023 10:20 PM Age: 68 years old Clinical indication: Cough and wheezing; Prior surgery; Surgery date: 6+ months; Surgery type: Port placement for chemo; Patient HX: C/O cough, wheezing, low oxygen, weak; Additional info: Resp distress, cough, wheezing, low oxygen TECHNIQUE: Imaging protocol: Radiologic exam of the chest. Views: 1 view. COMPARISON: CR XR chest 1V portable [id number] 10/03/2023 4:42 PM FINDINGS: Lungs: Unremarkable. No consolidation. Pleural spaces: Unremarkable. No pleural effusion. No pneumothorax. Heart/Mediastinum: Unremarkable. No cardiomegaly. Bones/joints: Unremarkable. XR/XR chest 1V portable [id number] IMPRESSION: No acute findings.
[2023-10-04 22:46] LABS: ABG PCO2 52.4 mmHg (35-45); ABG PH Result 7.33 (7.35-7.45); Arterial Blood Gas Hematocrit 43.9 % (37-47); Base Excess ABG 0.6 mmol/L (-2.0-2.0); Blood Gas Allen Test Pos; Blood Gas Sample Site Radial, right; Blood Gas Sample Type Arterial; HCO3 ABG 27.5 mmol/L (22-26); PO2 ABG 71.4 mmHg (80.0-100.0)
[2023-10-04] MEDS: azithromycin 250 mg Tablet 500 MG PO (23:14)
[2023-10-04 23:20] LABS: Basophils % 0.3 %; Lymphocytes # 1.5 10^3/uL (0.8-4.8); Lymphocytes % 13.7 %; Mean Corpuscular HGB Conc 31.8 g/dL (30-55); Mean Corpuscular Hemoglobin 25.2 pg (27-33); Mean Corpuscular Volume 79.3 fl (85-98); Mean Platelet Volume 9.8 fL (7.4-10.4); Monocytes # 0.9 10^3/uL (0.2-0.9); Neutrophils # 8.31 10^3/uL (1.8-7.7); Neutrophils % 77.7 %; Nucleated Red Blood Cells % 0 %; Platelet Count 325 10^3/cmm (157-399); Red Blood Count 5.55 10^6/uL (3.85-5.65); Red Cell Distribution Width 15.1 % (12.1-15.1); White Blood Count 10.69 10^3/uL (3.29-11.43)
[2023-10-04 23:31] LABS: D Dimer 0.44 ug/mLFEU (0-0.59)
[2023-10-04 23:50] LABS: Alanine Aminotransferase 16 U/L (0-33); Albumin Level 3.9 g/dL (3.5-5.2); Alkaline Phosphatase 100 U/L (35-105); Anion Gap 13.1 (5-19); Aspartate Amino Transferase 25 U/L (0-32); Blood Urea Nitrogen 16 mg/dL (8-23); Calcium 9.5 mg/dL (8.5-10.5); Carbon Dioxide 26 mmol/L (22-29); Chloride 102 mmol/L (98-107); Globulin 3.5 g/dL (1.3-4.6); Glucose 108 mg/dL (65-115); NT Pro B Type Natriuretic Pept 290 pg/mL (0-125); Osmolality Calculated 286 mOsm/kg (285-295); Potassium 4.1 mmol/L (3.5-5.1); Sodium 137 mmol/L (136-145); Total Bilirubin 0.2 mg/dL (0.15-1.2); Total Protein 7.4 g/dL (6.6-8.7)
[2023-10-05] VITALS (18 sets, daily range): BP systolic 109–165; BP diastolic 65–83; PULSE 59–95; RESP 17–30; TEMP 36.4–37.3; O2SAT 90–96; BMI 26.2
--- NOTE | 2023-10-05 01:51 | P.HP_ITS ---
Providers/Chief Complaint 2 Admitting Physician: Jessica Torres MD Primary Care Provider: Katie Dobbs Chief Complaint: SoB History of Present Illness Cinthia Palacios is a 68 year old female with a past medical history of CAD, PAD, benign essential hypertension, hyperlipidemia, COPD and reactive airway disease, not typically on oxygen, presents to the emergency room today with 4 to 5 days of URI type symptoms. She has had a runny nose, cough, minimal expectoration with multiple sick contacts at home some of whom have recently had COVID. Patient was in the ER yesterday where she tested negative for rapid COVID and influenza antigens. She was discharged with recommendations to continue symptomatic management at home. She returned to the emergency room today with worsening dyspnea. She has a new oxygen requirement of 2 L/min. States that she has been prescribed oxygen in the past however it has been intermittent as has not really used her oxygen since 2020. She states that her chest feels extremely tight and she is having difficulty moving air. She tried to take some nitros at home thinking it may be anginal pain since she has a history of coronary artery disease but nitroglycerin did not help her today. She denies any correlation with exertion. States she has a concentrator at home but it appears this was not functioning correctly Review of Systems 2 General: Reports: 10 or more systems reviewed and unremarkable except in HPI and below Const: Denies: fever(s), chills or body aches Eyes: Denies: change in vision, blurry vision or photophobia ENMT: Reports: hoarseness; Denies: throat pain, enlarged tonsils, odynophagia or nasal congestion Card: Denies: chest pain, palpitations, irregular heart rhythm, edema, swelling of feet/ankles, lightheadedness, pre-syncope, dyspnea on exertion or orthopnea Resp: Denies: dyspnea, productive cough, non-productive cough, wheezing, stridor, pain on inspiration, change in phlegm color, hemoptysis or chest congestion GI: Denies: abdominal pain, nausea, vomiting, hematemesis, coffee ground emesis, dysphagia, heartburn, diarrhea, constipation, GI cramping, change in stool character, hematochezia or melena : Denies: flank pain, difficulty voiding, dysuria, urinary frequency, urinary urgency, urinary hesitancy or hematuria Musc: Denies: neck pain, back pain, extremity pain, joint swelling, joint warmth or deformity Neuro: Denies: headache(s), numbness in extremities, weakness in extremities, sensory changes, difficulty walking, frequent falls, dizziness, vertigo, behavioral changes, Slurred speech present or seizure-like activity Psych: Denies: anxiety, depression, suicidal ideation or homicidal ideation Endo: Denies: polyuria, polydipsia, tired all the time, cold intolerance or hot flashes Christopher/Lymph: Denies: easy bruising or easy bleeding Medications/Allergies Home Medications Medication Instructions Recorded Confirmed Last Taken Type albuterol sulfate 90 mcg/actuation 2 puff inhalation QID PRN 10/23/19 09/20/23 01/11/22 05:45 History aerosol inhaler Shortness Of Breath clopidogrel 75 mg tablet (Plavix) 75 mg PO DAILY@79910/23/19 09/20/23 04/04/23 08:00 History isosorbide mononitrate 30 mg 30 mg PO DAILY@79910/23/19 09/20/23 04/04/23 08:00 History tablet,extended release 24 hr omeprazole 40 mg capsule,delayed 40 mg PO DAILY PRN Heartburn 10/23/19 09/20/23 01/11/22 05:45 History release albuterol sulfate 2.5 mg/3 mL 2.5 mg inhalation Q6H PRN 06/09/21 09/20/23 01/11/22 05:45 History (0.083 %) solution for nebulization Shortness Of Breath rosuvastatin 40 mg tablet 40 mg PO DAILY@02/25/23 09/20/23 04/03/23 History acetaminophen 500 mg tablet 500 mg PO Q6H PRN Pain 04/04/23 09/20/23 Unknown History cilostazol 100 mg tablet 100 mg PO BID@04/04/23 09/20/23 04/04/23 History levothyroxine 50 mcg tablet 50 mcg PO DAILY@04/04/23 09/20/23 04/04/23 History nitroglycerin 0.4 mg sublingual 0.4 mg sublingual Q5M PRN Chest 04/04/23 09/20/23 Unknown History tablet (Nitrostat) Pain omega-3 fatty acids 1,000 mg 1,000 mg PO DAILY@08 04/04/23 09/20/23 04/04/23 History capsule acetaminophen 300 mg-codeine 30 mg 1 tab PO Q6H PRN pain 7 days #20 04/12/23 09/20/23 Unknown Rx tablet tabs cam boot to left #1 ea 04/12/23 09/20/23 Unknown Rx ASO to left #1 ea 05/02/23 09/20/23 Unknown Rx Rollator Walker #1 ea 05/25/23 09/20/23 Unknown Rx magnesium L-lactate 84 mg 84 mg PO BID #60 tabs 07/11/23 09/20/23 Unknown Rx tablet,extended release (Magtab) metoprolol tartrate 50 mg tablet 50 mg PO Q12H #180 tabs 08/17/23 09/20/23 Unknown Rx Allergies Allergy/AdvReac Type Severity Reaction Status Date / Time diphenhydramine Allergy Intermediate ALGY-Hives Verified 10/03/23 14:48 [From Benadryl] sulfabenzamide Allergy Intermediate swelling Verified 10/03/23 14:48 PFSH Acute 2 PFSH: Medical History Atherosclerosis of coronary artery Hypertension COPD (chronic obstructive pulmonary disease) Adult hypothyroidism Hyperlipemia Dyspnea on exertion Malaise and fatigue Chronic obstructive asthma with exacerbation Emphysema/COPD GERD (gastroesophageal reflux disease) Back pain Palpitations Hypothyroidism Insomnia Park's palsy Hx of hyperlipidemia Anxiety Hx of breast cancer CAD (coronary artery disease) History of hypertension PAD (peripheral artery disease) Syncope Bilateral carotid artery stenosis without cerebral infarction Surgical History H/O tubal ligation History of cholecystectomy Status post carotid endarterectomy Family History Mother Lung disease Family/Other Cancer Grandmother CAD (coronary artery disease) Stroke Father Bleeding disorder Denies family history of Diabetes Clotting disorder Dementia Chronic kidney disease (CKD) Suicide Anesthesia complication Social History Smoking and tobacco/nicotine status: current every day tobacco/nicotine user Alcohol intake: never Substance/Drug Use: never Vitals/I&O/Wt Last Vital Signs Temp 97.6 F 10/05/23 01:11 Pulse 83 10/05/23 01:11 Resp 30 H 10/05/23 01:11 BP 165/83 10/05/23 01:11 Pulse Ox 90 10/05/23 01:11 O2 Del Method Nasal Cannula 10/05/23 01:11 O2 Flow Rate 3 10/05/23 01:11 Weight last 48 hrs Weight 63.049 kg Weight 65.317 kg Physical Exam 2 Narrative: General: No acute distress, AO x3, tachypneic with respiratory rate at 25, however able to carry on a complete conversation. HEENT: PERRLA, pupils bilaterally equal and reactive, pallors not present Chest: Diffuse wheezing to auscultation bilaterally CVS: S1-S2 regular, no murmurs, no tachycardia, no gallops, no rubs Abdomen: Soft, nontender, no organomegaly, bowel sounds present Neuro: No focal deficits, no facial deformity, AO x3, power 5/5 in all limbs Extremities: No edema clubbing or cyanosis. Data 10/04/23 23:05 10/04/23 23:05 Other Labs: Radiology Impressions Chest X-Ray 10/04/23 22:14 IMPRESSION: No acute findings. Laboratory Results WBC 10.69 10^3/uL (3.29-11.43) 10/04/23 23:05 RBC 5.55 10^6/uL (3.85-5.65) 10/04/23 23:05 Hgb 14.00 g/dL (11.27-16.99) 10/04/23 23:05 Hct 44.0 % (36-47) 10/04/23 23:05 MCV 79.3 fl (85-98) L 10/04/23 23:05 MCH 25.2 pg (27-33) L 10/04/23 23:05 MCHC 31.8 g/dL (30-55) 10/04/23 23:05 RDW 15.1 % (12.1-15.1) 10/04/23 23:05 Plt Count 325 10^3/cmm (157-399) 10/04/23 23:05 MPV 9.8 fL (7.4-10.4) 10/04/23 23:05 Neut % (Auto) 77.7 % 10/04/23 23:05 Lymph % (Auto) 13.7 % 10/04/23 23:05 [place]wood % (Auto) 8.0 % 10/04/23 23:05 Eos % (Auto) 0.0 % 10/04/23 23:05 Baso % (Auto) 0.3 % 10/04/23 23:05 Neut # (Auto) 8.31 10^3/uL (1.8-7.7) H 10/04/23 23:05 Lymph # (Auto) 1.5 10^3/uL (0.8-4.8) 10/04/23 23:05 [place]wood # (Auto) 0.9 10^3/uL (0.2-0.9) 10/04/23 23:05 Eos # (Auto) 0.0 10^3/uL (0.0-0.8) 10/04/23 23:05 Baso # (Auto) 0.0 10^3/uL (0.0-0.1) 10/04/23 23:05 Nucleated RBC % (auto) 0 % 10/04/23 23:05 Nucleated RBCs # 0.0 /100WBC 10/04/23 23:05 D-Dimer 0.44 ug/mLFEU (0-0.59) 10/04/23 23:05 Specimen Type Arterial 10/04/23 22:36 Sample Site Radial, right 10/04/23 22:36 ABG pH 7.33 (7.35-7.45) L 10/04/23 22:36 ABG pCO2 52.4 mmHg (35-45) H 10/04/23 22:36 ABG pO2 71.4 mmHg (80.0-100.0) L 10/04/23 22:36 ABG HCO3 27.5 mmol/L (22-26) H 10/04/23 22:36 ABG Base Excess 0.6 mmol/L (-2.0-2.0) 10/04/23 22:36 Virgilio Test Pos 10/04/23 22:36 Hematocrit 43.9 % (37-47) 10/04/23 22:36 O2 Delivery Device None 10/04/23 22:36 O2 Liters/Min 2.0 % 10/04/23 22:36 Chemical Plant Operator ID [email or web address] 10/04/23 22:36 Sodium 137 mmol/L (136-145) 10/04/23 23:05 Potassium 4.1 mmol/L (3.5-5.1) 10/04/23 23:05 Chloride 102 mmol/L (98-107) 10/04/23 23:05 Carbon Dioxide 26 mmol/L (22-29) 10/04/23 23:05 Anion Gap 13.1 (5-19) 10/04/23 23:05 BUN 16 mg/dL (8-23) 10/04/23 23:05 Creatinine 0.7 mg/dL (0.5-0.9) 10/04/23 23:05 GFR Calculation 83.0 mL/min (90-130) L 10/04/23 23:05 Glucose 108 mg/dL (65-115) 10/04/23 23:05 Calculated Osmolality 286 mOsm/kg (285-295) 10/04/23 23:05 Calcium 9.5 mg/dL (8.5-10.5) 10/04/23 23:05 Total Bilirubin 0.2 mg/dL (0.15-1.2) 10/04/23 23:05 AST 25 U/L (0-32) 10/04/23 23:05 ALT 16 U/L (0-33) 10/04/23 23:05 Alkaline Phosphatase 100 U/L (35-105) 10/04/23 23:05 NT-Pro-B Natriuret Pep 290 pg/mL (0-125) H 10/04/23 23:05 Total Protein 7.4 g/dL (6.6-8.7) 10/04/23 23:05 Albumin 3.9 g/dL (3.5-5.2) 10/04/23 23:05 Globulin 3.5 g/dL (1.3-4.6) 10/04/23 23:05 ABG Interpretation 1: 10/04/23 22:36 ABG pH 7.33 L ABG pCO2 52.4 H ABG pO2 71.4 L ABG HCO3 27.5 H ABG Base Excess 0.6 A&P Assessment and plan (1) Acute exacerbation of chronic obstructive pulmonary disease: (2) Acute bronchitis: (3) Hypoxia: Plan 68-year-old lady with past medical history as noted above presenting with 4 to 5 days of upper respiratory symptoms, worsening dyspnea over the last 2 days necessitating a second ER visit today. Noted to have hypoxia, O2 requirement of 2 L/min. Diffuse wheezing on exam bilaterally. Chest x-ray does not show any gross consolidation. Suspect that her current symptoms are related to acute bronchitis and COPD exacerbation. She has received 40 mg of p.o. prednisone in the emergency room and DuoNeb inhalation x 1. Continues to have significant wheezing on exam currently. She is tachypneic with respiratory rate of 25. Negative COVID and influenza antigens. Start methylprednisone 40 mg IV every 8 hours after using methylprednisone 125 mg IV x 1 now Start duoneb q6h, budesonide q12h empiric CTX as possibility of superadded bacterial bronchitis not excluded at this time. Negative D dimer screen, less likelihood of PE currently. Complains of chest discomfort which may be related to bronchospasm as heard on auscultation, however given her significant past coronary artery disease history and multiple risk factors will check EKG and troponin series to evaluate for ACS. DVT prophylaxis: Lovenox Full code Attestations 2 Medical Necessity Statement*: > 2 midnight admission in anticipated at this time Coding Level of Care Code Acute Code for Chg Fwd Diagnoses Acute exacerbation of chronic obstructive pulmonary disease J44.1 Acute bronchitis J20.9 Hypoxia R09.02
--- NOTE | 2023-10-05 01:52 | ECG_ITS ---
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 Measurements Intervals [place] Rate: 77 P: 78 OK: 137 QRS: 85 QRSD: 74 T: 79 QT: 373 QTc: 424 Interpretive Statements SINUS RHYTHM POSSIBLE ANTERIOR MYOCARDIAL INFARCTION , PROBABLY OLD [30 ms Q WAVE IN V3/V4, OR R < 0.2 mV IN V4] Compared to ECG 12/12/2021 11:28:41 Myocardial infarct finding now present Electronically Signed On 10-05-2023 9:34:35 METAL DRILL PRESS OPERATOR by Marc Brewer M.D. [id number]
[2023-10-05] MEDS: albuterol 2.5 mg/3 mL Neb INHALATION (02:20)
[2023-10-05 02:40] LABS: ABG PCO2 56.6 mmHg (35-45); ABG PH Result 7.32 (7.35-7.45); Alveolar-Arterial Oxygen Gradi 2.5 mmHg (5-10); Arterial Blood Gas Hematocrit 45.1 % (37-47); Base Excess ABG 1.4 mmol/L (-2.0-2.0); Blood Gas Allen Test Pos; Blood Gas Operator Identificat JB; Blood Gas Sample Site Radial, right; Blood Gas Sample Type Arterial; Carboxyhemoglobin 2.5 %THgb (0.4-20.1); Ionized Calcium Level - ABG 1.3 mmol/L (1.1-1.4); Methemoglobin 0.3 % (0.4-1.5); Oxygen Device NC; Oxygen Saturation ABG 90.5; PO2 ABG 60.5 mmHg (80.0-100.0); Potassium Level - ABG 4.5 mmol/L (3.5-5.0); Total Hemoglobin 14.7 g/dL (12-16)
[2023-10-05 02:43] LABS: Troponin(5th) Baseline 16 ng/L (0-10)
[2023-10-05] MEDS: methylPREDNISolone sod succ 125 MG in water for injection-sterile 2 ML 24 MG IVP (02:55)
[2023-10-05] MEDS: cefTRIAXone 1,000 MG in sodium chloride 0.9% (plus) 50 ML 100 MG IV (02:56)
--- NOTE | 2023-10-05 03:52 | ECG_ITS ---
[facility] Test Date: 2023-10-05 Pat Name: Cinthia Palacios Department: Room: 261 Gender: Female Oral And Maxillofacial Surgery Resident: : 1955 Requested By: Jessica Torres Order Number: [id number] Shana MD: Marc Brewer M.D. Measurements Intervals [place] Rate: 90 P: 76 CT: 122 QRS: 83 QRSD: 76 T: 78 QT: 349 QTc: 428 Interpretive Statements SINUS RHYTHM WITH OCCASIONAL SUPRAVENTRICULAR PREMATURE COMPLEXES POSSIBLE ANTERIOR MYOCARDIAL INFARCTION , OF INDETERMINATE AGE [30 ms Q WAVE IN V3/V4, OR R < 0.2 mV IN V4] Compared to ECG 10/05/2023 02:51:58 No significant changes Electronically Signed On 10-05-2023 19:00:41 INSPECTOR EYEGLASS by Marc Brewer M.D. [id number]
[2023-10-05 05:30] LABS: Troponin 5 2HR 14.45 ng/L (0-10)
[2023-10-05 05:35] LABS: Troponin 5 2HR Delta -1.55 ABS# (0-10)
[2023-10-05] MEDS: budesonide 0.5 mg/2 mL Neb INHALATION ×2 (07:34→20:12)
[2023-10-05] MEDS: ipratropium-albuterol 3 mL Neb INHALATION ×3 (07:34→20:12)
[2023-10-05 08:32] LABS: Troponin 5 6HR 11.88 ng/L (0-10)
[2023-10-05 08:33] LABS: Troponin 5 6HR Delta -4.12 ng/L (0-12)
[2023-10-05] MEDS: clopidogrel 75 mg Tablet PO (10:12)
[2023-10-05] MEDS: isosorbide mononitrate ER 30 mg Tablet PO (10:12)
[2023-10-05] MEDS: cilostazol 100 mg Tablet PO ×2 (10:12→17:26)
[2023-10-05] MEDS: enoxaparin 40 mg/0.4 mL Syringe SUBCUT (10:12)
[2023-10-05] MEDS: metoprolol tartrate 50 mg Tablet PO (10:15)
[2023-10-05] MEDS: pantoprazole DR 40 mg Tablet PO (10:15)
[2023-10-05] MEDS: methylPREDNISolone sod succ 40 mg/mL INJ IVP ×2 (10:16→17:26)
--- NOTE | 2023-10-05 10:31 | PC.CHAP ---
Pastoral Care Encounter/Spiritual Assessment Type of Contact [] Declined traffic division commanding officer visit [] Patient/Family/Request visit [] Outpatient visit [] Follow-up visit [] Physician referral [] Code/Alert [X] Routine visit [] Staff referral [] Actively dying [] Patient sleeping [] Family support [] [] Out of room [] Palliative care [] [] Receiving care in room [] Pre-surgical visit [] Trauma [] Long length of stay [] ICU visit [] Other: Relational/Emotional Strength [] Patient feels connected with others/family/visitors/staff [] Distress [] Loneliness/isolation [] Abandonment Spirituality of Patient [] Person of Lorena [] Attends Confucianism of their [place] [] Believes in Prayer [] Reads Bible or Christian materials [] There are Spiritual issues to be addressed Production Drilling Machine Operator Interventions [X] Prayer [X] Active listening [] Non-anxious presence [] Spiritual/emotional support [] Crisis/trauma care [] Spiritual counseling [] Bereavement support [] Provided bereavement packet [] Provided Bible/devotional materials [] Provided toy/stuffed animal, coloring book to patient or family member [] Provided Communion [] Anointing/Homer [] Salvation [] Completed spiritual assessment [] Other: Impact on Illness or Injury [] Angry [] Fearful [] Anxious [] Often cries [] Exhaustion [] Unable to work [] Unable to attend mandaen [] Unable to walk/stand [] Unable to read [] Unable to drive [] Unable to eat/drink [] Unable to sleep [] Unable to be with family [] Patient intubated [] Other: Summary Time spent with patient 10 MIN
--- NOTE | 2023-10-05 12:02 | W.PM.EVENTAC ---
Event Note Event Note: When I saw her this patient she was on 5 L saturating 95% I had weaned her oxygen down to 3 L Patient is stating that on ambulation her oxygen saturation dropped No active chest pain Wheezing is improved She is smoking 2 cartons in a month She will need oxygen before discharge Continue steroids and antibiotics
--- NOTE | 2023-10-05 12:05 | CT_ITS ---
WS: [id number] CT CHEST TECHNIQUE: Noncontrast CT of the chest with coronal and sagittal reformatted images. CLINICAL INFORMATION: Hypoxi COMPARISON: 2021 DLP: 308.[address] scans at [facility] use at least one of these dose optimization techniques: automated e xposure control; mA and/or kV adjustment per patient size (includes targeted exams where dose is matc hed to clinical indication); or iterative reconstruction. FINDINGS: Mild hyperinflation. Mild to moderate chronic emphysematous changes. No acute pulmonary infiltrates. No focal pneumonia or pleural fluid. A few calcified granulomas. Subsegmental atelectasis in the ling dequan. A few hazy groundglass opacities in RIGHT middle lobe likely inflammatory. No focal pneumonia or pleural fluid. Normal caliber thoracic aorta. Mild aortic calcification. No mediastinal or hilar lymphadenopathy. No rmal GE junction. Adrenal glands are normal. Prior cholecystectomy. Moderate thoracic kyphosis. IMPRESSION: 1. Hyperinflation with mild to moderate chronic emphysematous changes. 2. A few hazy groundglass opacities in the RIGHT middle lobe likely inflammatory. Slight subsegmenta l atelectasis in the lingula. 3. No other suspicious findings.
[2023-10-05] MEDS: acetaminophen 325 mg Tablet 650 MG PO (16:30)
[2023-10-05] MEDS: doxycycline 100 mg Tablet PO (17:26)
[2023-10-05] MEDS: benzonatate 100 mg Capsule PO (17:27)
[2023-10-05] MEDS: ALPRAZolam 0.5 mg Tablet 0.25 MG PO (20:01)
[2023-10-05] MEDS: atorvastatin 40 mg Tablet PO (20:01)
--- NOTE | 2023-10-05 22:14 | PC.NURSE ---
This nurse has been in pt room several times since the start of the shift. Pt can be very rude and use foul language toward staff, but can also be cooperative and kind. Pt asked to not speak to staff in a demeaning was, and pt stated something staff unable to understand. Charge nurse aware of pt behaviors.
[2023-10-06] VITALS (18 sets, daily range): BP systolic 121–167; BP diastolic 70–80; PULSE 67–103; RESP 16–28; TEMP 36.4–36.7; O2SAT 91–97; BMI 26.9
[2023-10-06] MEDS: cefTRIAXone 1,000 MG in sodium chloride 0.9% (plus) 50 ML 100 MG IV (01:12)
[2023-10-06] MEDS: methylPREDNISolone sod succ 40 mg/mL INJ IVP ×3 (02:14→17:42)
[2023-10-06] MEDS: ipratropium-albuterol 3 mL Neb INHALATION ×4 (02:17→19:26)
[2023-10-06 05:11] LABS: Basophils % 0.1 %; Lymphocytes # 0.7 10^3/uL (0.8-4.8); Lymphocytes % 6.4 %; Mean Corpuscular HGB Conc 30.9 g/dL (30-55); Mean Corpuscular Hemoglobin 25.3 pg (27-33); Mean Corpuscular Volume 81.8 fl (85-98); Mean Platelet Volume 9.7 fL (7.4-10.4); Monocytes # 0.5 10^3/uL (0.2-0.9); Monocytes % 4.6 %; Neutrophils # 10.17 10^3/uL (1.8-7.7); Neutrophils % 88.6 %; Nucleated Red Blood Cells % 0 %; Platelet Count 337 10^3/cmm (157-399); Red Blood Count 5.38 10^6/uL (3.85-5.65); Red Cell Distribution Width 15.4 % (12.1-15.1); White Blood Count 11.48 10^3/uL (3.29-11.43)
[2023-10-06 05:33] LABS: Alanine Aminotransferase 14 U/L (0-33); Albumin Level 3.7 g/dL (3.5-5.2); Alkaline Phosphatase 88 U/L (35-105); Anion Gap 10.5 (5-19); Aspartate Amino Transferase 19 U/L (0-32); Blood Urea Nitrogen 16 mg/dL (8-23); Calcium 9.5 mg/dL (8.5-10.5); Carbon Dioxide 30 mmol/L (22-29); Chloride 102 mmol/L (98-107); Globulin 3.3 g/dL (1.3-4.6); Glomerular Filtration Rate 99.1 mL/min (90-130); Glucose 149 mg/dL (65-115); Osmolality Calculated 290 mOsm/kg (285-295); Potassium 4.5 mmol/L (3.5-5.1); Sodium 138 mmol/L (136-145); Total Bilirubin 0.2 mg/dL (0.15-1.2)
[2023-10-06] MEDS: levothyroxine 50 mcg Tablet PO (06:55)
[2023-10-06] MEDS: budesonide 0.5 mg/2 mL Neb INHALATION ×2 (08:24→19:26)
[2023-10-06] MEDS: ALPRAZolam 0.5 mg Tablet 0.25 MG PO ×2 (09:06→19:51)
[2023-10-06] MEDS: dilTIAZem ER (24HR) 120 mg Capsule PO (10:41)
[2023-10-06] MEDS: doxycycline 100 mg Tablet PO ×2 (10:41→17:42)
[2023-10-06] MEDS: pantoprazole DR 40 mg Tablet PO (10:42)
[2023-10-06] MEDS: enoxaparin 40 mg/0.4 mL Syringe SUBCUT (10:42)
[2023-10-06] MEDS: cilostazol 100 mg Tablet PO ×2 (10:42→17:42)
[2023-10-06] MEDS: clopidogrel 75 mg Tablet PO (10:43)
[2023-10-06] MEDS: isosorbide mononitrate ER 30 mg Tablet PO (10:43)
[2023-10-06] MEDS: acetaminophen 650 mg/20.3 mL UDC PO (10:49)
--- NOTE | 2023-10-06 10:57 | P.PN_ITS ---
Subjective 2 Subjective: Patient is very anxious Currently on BiPAP saturating 93% I reassured her that she should be off BiPAP and use nasal cannula and have her breakfast I will put some anxiolytics for her today No active wheezing Vitals/I&O/Wt Last Vital Signs Temp 98.1 F 10/06/23 07:56 Pulse 90 10/06/23 08:49 Resp 18 10/06/23 08:25 BP 167/80 10/06/23 07:56 Pulse Ox 92 10/06/23 08:49 O2 Del Method Nasal Cannula 10/06/23 08:25 O2 Flow Rate 5 10/06/23 08:25 FiO2 35 10/06/23 08:49 10/05/23 10/06/23 10/06/23 22:59 06:59 14:59 Intake Total 120 / 600 350 / 950 240 / 240 Balance 120 / 600 350 / 950 240 / 240 Weight last 48 hrs Weight 64.682 kg Weight 63.004 kg Weight 63.049 kg Weight 63.049 kg Weight 65.317 kg Physical Exam 2 Narrative: Awake and alert Currently no active wheezing Currently on BiPAP GCS 15 X-rays. GCS 15 Nonfocal neuroexam Euvolemic Data 10/06/23 04:54 10/06/23 04:54 A&P Assessment and plan (1) Benign essential HTN: (2) Grade III diastolic dysfunction: (3) Peripheral arterial disease: (4) MURILLO (dyspnea on exertion): (5) Upper respiratory infection: Qualifiers: URI type: unspecified URI Qualified Code(s): J06.9 - Acute upper respiratory infection, unspecified (6) Acute on chronic respiratory failure with hypoxia and hypercapnia: (7) Acute exacerbation of chronic obstructive pulmonary disease: (8) Acute bronchitis: (9) Hypoxia: Plan COPD exacerbation Active smoker Smokes 2 cartons in a month No active DVT signs her D-dimer is not high CT chest showing COPD related changes Patient will be put on Renetta, LABA LAMA ICS Plan to discharge her by tomorrow Currently using BiPAP to decrease work of breathing Very anxious Will add anxiolytics Counseling completed today Full code Cardiac diet DVT prophylaxis on board Attestations 2 Medical Necessity Statement*: Discharge by tomorrow Diagnoses Benign essential HTN I10 Grade III diastolic dysfunction I51.89 Peripheral arterial disease I73.9 MURILLO (dyspnea on exertion) R06.00 Upper respiratory infection J06.9 URI type: unspecified URI Acute on chronic respiratory failure with hypoxia and hypercapnia J96.21; J96.22 Acute exacerbation of chronic obstructive pulmonary disease J44.1 Acute bronchitis J20.9 Hypoxia R09.02
[2023-10-06] MEDS: morphine IR 15 mg Tablet PO ×3 (12:05→23:43)
--- NOTE | 2023-10-06 16:04 | ECG_ITS ---
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 Measurements Intervals [place] Rate: 92 P: 69 KS: 123 QRS: 74 QRSD: 81 T: 66 QT: 329 QTc: 408 Interpretive Statements SINUS RHYTHM MINIMAL ST DEPRESSION [0.025+ mV ST DEPRESSION] Compared to ECG 10/05/2023 04:40:49 ST (T wave) deviation now present Myocardial infarct finding no longer present Electronically Signed On 10-06-2023 21:50:15 INVASIVE CARDIOVASCULAR TECHNOLOGIST by Marilyn Moore M.D. [id number]
[2023-10-06 16:26] LABS: ABG PH Result 7.33 (7.35-7.45); Alveolar-Arterial Oxygen Gradi 0.2 mmHg (5-10); Arterial Blood Gas Hematocrit 42.4 % (37-47); Base Excess ABG 4.2 mmol/L (-2.0-2.0); Blood Gas Allen Test Pos; Blood Gas Operator Identificat WALCI; Blood Gas Sample Site Radial, left; Blood Gas Sample Type Arterial; Carboxyhemoglobin 1.2 %THgb (0.4-20.1); HGB O2 Sat 93.6 % (95-100); Ionized Calcium Level - ABG 1.3 mmol/L (1.1-1.4); Methemoglobin 0.6 % (0.4-1.5); Oxygen Device NC; Oxygen Saturation ABG 95.3; PO2 ABG 72.6 mmHg (80.0-100.0); Total Hemoglobin 13.8 g/dL (12-16)
[2023-10-06 16:28] LABS: ABG PCO2 60.7 mmHg (35-45)
[2023-10-06 17:23] LABS: Troponin T (5th) Once 11 ng/L (0-10)
[2023-10-06 18:18] LABS: ABG PCO2 59.8 mmHg (35-45); ABG PH Result 7.33 (7.35-7.45); Arterial Blood Gas Hematocrit 42.8 % (37-47); Base Excess ABG 4.1 mmol/L (-2.0-2.0); Blood Gas Allen Test Pos; Blood Gas Operator Identificat WALCI; Blood Gas Sample Site Radial, left; Blood Gas Sample Type Arterial; HCO3 ABG 31.7 mmol/L (22-26); Oxygen Device BIPAP; PO2 ABG 70.9 mmHg (80.0-100.0); PO2 FiO2 Ratio Arterial Blood 0
[2023-10-06 18:24] LABS: Adenovirus Not Detected (NOT DETECT); Chlamydia Pneumoniae Not Detected (NOT DETECT); Coronavirus 229E,HKU1,NL63,OC4 Not Detected (NOT DETECT); Human Metapneumovirus Not Detected (NOT DETECT); Human Rhinovirus/Enterovirus Not Detected (NOT DETECT); Influenza A Detected (NOT DETECT); Influenza A H1 Not Detected (NOT DETECT); Influenza A H1-2009 Not Detected (NOT DETECT); Influenza A H3 Detected (NOT DETECT); Influenza B Not Detected (NOT DETECT); Mycoplasma Pneumoniae Not Detected (NOT DETECT); Parainfluenza Virus Type 1 Not Detected (NOT DETECT); Parainfluenza Virus Type 2 Not Detected (NOT DETECT); Parainfluenza Virus Type 3 Not Detected (NOT DETECT); Parainfluenza Virus Type 4 Not Detected (NOT DETECT); Respiratory Syncytial Virus A Not Detected (NOT DETECT); Respiratory Syncytial Virus B Not Detected (NOT DETECT); SARS-COV-2 Not Detected (NOT DETECT)
[2023-10-06] MEDS: atorvastatin 40 mg Tablet PO (19:51)
[2023-10-07] VITALS (16 sets, daily range): BP systolic 137–161; BP diastolic 73–86; PULSE 72–100; RESP 15–36; TEMP 36.4–36.9; O2SAT 90–95
[2023-10-07] MEDS: methylPREDNISolone sod succ 40 mg/mL INJ IVP ×2 (01:09→09:52)
[2023-10-07] MEDS: calcium carbonate 500 mg Chew Tablet 1000 MG PO (01:09)
[2023-10-07] MEDS: cefTRIAXone 1,000 MG in sodium chloride 0.9% (plus) 50 ML 100 MG IV (01:10)
[2023-10-07] MEDS: benzonatate 100 mg Capsule PO ×2 (01:27→19:30)
[2023-10-07] MEDS: ipratropium-albuterol 3 mL Neb INHALATION ×4 (03:19→20:58)
[2023-10-07] MEDS: levothyroxine 50 mcg Tablet PO (04:48)
[2023-10-07] MEDS: budesonide 0.5 mg/2 mL Neb INHALATION ×2 (07:33→20:59)
[2023-10-07 08:27] LABS: ABG PH Result 7.34 (7.35-7.45); Arterial Blood Gas Hematocrit 42.8 % (37-47); Blood Gas Operator Identificat AMH; Blood Gas Sample Site Brachial, left; Blood Gas Sample Type Arterial; HCO3 ABG 33.8 mmol/L (22-26); Oxygen Device NC; PO2 ABG 68.2 mmHg (80.0-100.0); PO2 FiO2 Ratio Arterial Blood 0
[2023-10-07 08:29] LABS: ABG PCO2 62.4 mmHg (35-45)
[2023-10-07] MEDS: enoxaparin 40 mg/0.4 mL Syringe SUBCUT (09:51)
[2023-10-07] MEDS: ALPRAZolam 0.5 mg Tablet 0.25 MG PO ×2 (09:51→19:30)
[2023-10-07] MEDS: dilTIAZem ER (24HR) 120 mg Capsule PO (09:52)
[2023-10-07] MEDS: cilostazol 100 mg Tablet PO ×2 (09:52→18:03)
[2023-10-07] MEDS: pantoprazole DR 40 mg Tablet PO (09:52)
[2023-10-07] MEDS: doxycycline 100 mg Tablet PO ×2 (09:52→18:03)
[2023-10-07] MEDS: clopidogrel 75 mg Tablet PO (09:52)
[2023-10-07] MEDS: morphine IR 15 mg Tablet PO (09:52)
[2023-10-07] MEDS: isosorbide mononitrate ER 30 mg Tablet PO (09:52)
--- NOTE | 2023-10-07 11:34 | P.PN_ITS ---
Subjective 2 Subjective: Patient this morning was on 4 L nasal cannula ABG showed persistent hypercapnia I will ask RT to put her back on BiPAP She has mild wheezing as well She is not ready to be discharged Will request overnight pulse ox to get her BiPAP approved She is hypoxic and hypercapnic will definitely need BiPAP at the time of discharge to prevent readmissions, she is a chronic retainer of carbon dioxide which could get worse and cause confusion to the point where she would not be able to synchronize her breathing with the BiPAP and might end up on a ventilator Vitals/I&O/Wt Last Vital Signs Temp 97.6 F 10/07/23 08:00 Pulse 100 10/07/23 08:00 Resp 18 10/07/23 08:00 BP 161/81 10/07/23 08:00 Pulse Ox 91 10/07/23 08:00 O2 Del Method Nasal Cannula 10/07/23 08:00 O2 Flow Rate 5 10/06/23 19:26 FiO2 35 10/07/23 07:29 10/06/23 10/07/23 10/07/23 22:59 06:59 14:59 Intake Total 120 / 480 50 / 530 240 / 240 Output Total 50 / 50 250 / 300 Balance 70 / 430 -200 / 230 240 / 240 Weight last 48 hrs Weight 65.799 kg Weight 64.682 kg Physical Exam 2 Narrative: Awake and alert Mild wheezing GCS 15 Anxious Currently on nasal cannula Eating breakfast Pleasant cooperative Nonfocal neuroexam No active fatigue lethargy Mild conversational dyspnea Hypertensive S1, S2 Data 10/06/23 04:54 10/06/23 04:54 A&P Assessment and plan (1) Influenza: (2) Benign essential HTN: (3) Grade III diastolic dysfunction: (4) Hypoxia: (5) Acute exacerbation of chronic obstructive pulmonary disease: (6) Acute on chronic respiratory failure with hypoxia and hypercapnia: (7) Viral pneumonia: Plan COPD exacerbation Acute hypoxia with hypercapnia Patient will definitely need BiPAP at the time of discharge I will increase the dose of steroids She has influenza A Continue empirical antibiotic coverage as well increase the dose of steroids Patient not ready to be discharged She does have anxiolytics on board as well which are secondary to her persistent hypercapnic state and hypoxia D-dimer unremarkable Patient is willing to quit smoking Full code Cardiac diet She had multiple episode of loose stool check C. difficile I will ask RT to put her back on BiPAP Spoke with RT and case management Case management to arrange BiPAP RT to put her back on BiPAP because she is still showing signs of chronic retention of CO2 without compensation Attestations 2 Medical Necessity Statement*: Continue medical management Diagnoses Influenza J11.1 Benign essential HTN I10 Grade III diastolic dysfunction I51.89 Hypoxia R09.02 Acute exacerbation of chronic obstructive pulmonary disease J44.1 Acute on chronic respiratory failure with hypoxia and hypercapnia J96.21; J96.22 Viral pneumonia J12.9
--- NOTE | 2023-10-07 13:22 | PC.SOCIAL ---
IMM Updated Updated pt on IMM. No questions voiced. Provided pt a copy. Initialed, dated, & timed a copy & placed in chart.
[2023-10-07] MEDS: oseltamivir phosphate 75 mg Capsule PO (18:03)
[2023-10-07] MEDS: methylPREDNISolone sod succ 125 mg/2 mL INJ 60 MG IVP (18:10)
[2023-10-07] MEDS: atorvastatin 40 mg Tablet PO (19:30)
[2023-10-07] MEDS: acetaminophen 650 mg/20.3 mL UDC PO (19:37)
--- NOTE | 2023-10-07 21:00 | PC.NURSE ---
Spoke with RT about overnight pulse ox study on patient. Patient frequently asks to be on and off of Bipap due to anxiety. Patient becomes extremely anxious at times. Patient given PRN Xanax. Overnight pulse ox study will not be possible due to patient's anxiety. Dr. Torres notified and stated to document it.
[2023-10-08] VITALS (14 sets, daily range): BP systolic 131–171; BP diastolic 63–82; PULSE 77–114; RESP 17–28; TEMP 36.4–36.8; O2SAT 86–95; BMI 27.3
[2023-10-08] MEDS: cefTRIAXone 1,000 MG in sodium chloride 0.9% (plus) 50 ML 100 MG IV (01:33)
[2023-10-08] MEDS: methylPREDNISolone sod succ 125 mg/2 mL INJ 60 MG IVP ×3 (01:33→19:30)
[2023-10-08] MEDS: ipratropium-albuterol 3 mL Neb INHALATION ×4 (02:38→20:48)
[2023-10-08 05:28] LABS: Basophils % 0.1 %; Hematocrit 44.6 % (36-47); Lymphocytes # 0.7 10^3/uL (0.8-4.8); Lymphocytes % 8.3 %; Mean Corpuscular HGB Conc 30.9 g/dL (30-55); Mean Corpuscular Hemoglobin 25.2 pg (27-33); Mean Corpuscular Volume 81.5 fl (85-98); Mean Platelet Volume 9.4 fL (7.4-10.4); Monocytes # 0.2 10^3/uL (0.2-0.9); Monocytes % 1.9 %; Neutrophils # 7.67 10^3/uL (1.8-7.7); Neutrophils % 88.8 %; Nucleated Red Blood Cells % 0 %; Platelet Count 314 10^3/cmm (157-399); Red Blood Count 5.47 10^6/uL (3.85-5.65); Red Cell Distribution Width 14.9 % (12.1-15.1); White Blood Count 8.64 10^3/uL (3.29-11.43)
[2023-10-08] MEDS: levothyroxine 50 mcg Tablet PO (06:55)
[2023-10-08] MEDS: ALPRAZolam 0.5 mg Tablet 0.25 MG PO ×4 (06:55→20:38)
[2023-10-08] MEDS: budesonide 0.5 mg/2 mL Neb INHALATION ×2 (08:34→20:48)
[2023-10-08] MEDS: enoxaparin 40 mg/0.4 mL Syringe SUBCUT (09:10)
[2023-10-08] MEDS: dilTIAZem ER (24HR) 120 mg Capsule PO (09:10)
[2023-10-08] MEDS: pantoprazole DR 40 mg Tablet PO (09:10)
[2023-10-08] MEDS: doxycycline 100 mg Tablet PO ×2 (09:11→18:08)
[2023-10-08] MEDS: clopidogrel 75 mg Tablet PO (09:11)
[2023-10-08] MEDS: oseltamivir phosphate 75 mg Capsule PO ×2 (09:11→18:08)
[2023-10-08] MEDS: cilostazol 100 mg Tablet PO ×2 (09:11→18:08)
[2023-10-08] MEDS: isosorbide mononitrate ER 30 mg Tablet PO (09:11)
--- NOTE | 2023-10-08 11:53 | P.PN_ITS ---
Subjective 2 Subjective: Patient is on BiPAP She is very anxious asking me if she would be all right I reassured the patient that with quitting smoking and using oxygen patient to get less exacerbations She is very scared to go home because of cold weather she is scared of losing electricity and not having a BiPAP Because of her anxiety and severe hypoxia we could not do overnight pulse oximeter Vitals/I&O/Wt Last Vital Signs Temp 97.9 F 10/08/23 11:42 Pulse 88 10/08/23 11:42 Resp 19 H 10/08/23 11:42 BP 171/82 10/08/23 11:42 Pulse Ox 93 10/08/23 11:42 O2 Del Method BiPAP 10/08/23 08:34 O2 Flow Rate 5 10/08/23 08:00 FiO2 40 10/08/23 08:36 10/07/23 10/08/23 10/08/23 22:59 06:59 14:59 Intake Total 240 / 720 50 / 770 250 / 250 Output Total 300 / 300 300 / 600 Balance -60 / 420 -250 / 170 250 / 250 Weight last 48 hrs Weight 65.771 kg Weight 65.799 kg Physical Exam 2 Narrative: No active wheezing today Currently on BiPAP No active wheezing or crackles S1, S2 Pleasant cooperative Nonfocal neuroexam In good spirits Anxious appearing Data 10/08/23 05:05 10/06/23 04:54 A&P Assessment and plan (1) Benign essential HTN: (2) Grade III diastolic dysfunction: (3) Hypoxia: (4) Acute exacerbation of chronic obstructive pulmonary disease: (5) Acute on chronic respiratory failure with hypoxia and hypercapnia: (6) Acute bronchitis: (7) Viral pneumonia: (8) Influenza: Plan Influenza related COPD exacerbation Patient definitely needs BiPAP at the time of discharge to prevent readmissions I have been keeping her on BiPAP intermittently She could not finish her oxygen evaluation overnight In this cold weather she is scared to return home and lose electricity without having a BiPAP at home She has been using BiPAP intermittently between her meals Afebrile Continue Tamiflu and empirical antibiotics I am not doing CTA chest because her D-dimer is unremarkable Attestations 2 Medical Necessity Statement*: Continue management of COPD exacerbation Diagnoses Benign essential HTN I10 Grade III diastolic dysfunction I51.89 Hypoxia R09.02 Acute exacerbation of chronic obstructive pulmonary disease J44.1 Acute on chronic respiratory failure with hypoxia and hypercapnia J96.21; J96.22 Acute bronchitis J20.9 Viral pneumonia J12.9 Influenza J11.1
[2023-10-08] MEDS: acetaminophen 650 mg/20.3 mL UDC PO (14:28)
[2023-10-08] MEDS: atorvastatin 40 mg Tablet PO (20:38)
[2023-10-09] VITALS (16 sets, daily range): BP systolic 131–152; BP diastolic 68–77; PULSE 85–99; RESP 16–29; TEMP 36.3–36.8; O2SAT 91–95; BMI 27.3
[2023-10-09] MEDS: methylPREDNISolone sod succ 125 mg/2 mL INJ 60 MG IVP ×3 (01:07→18:27)
[2023-10-09] MEDS: cefTRIAXone 1,000 MG in sodium chloride 0.9% (plus) 50 ML 100 MG IV (01:07)
[2023-10-09] MEDS: ALPRAZolam 0.5 mg Tablet 0.25 MG PO ×4 (01:07→23:50)
[2023-10-09] MEDS: ipratropium-albuterol 3 mL Neb INHALATION ×4 (03:05→19:54)
[2023-10-09 04:35] LABS: Arterial Blood Gas Hematocrit 42.4 % (37-47); Base Excess ABG 10.9 mmol/L (-2.0-2.0); Blood Gas Allen Test Pos; Blood Gas Sample Site Brachial, right; Blood Gas Sample Type Arterial; HCO3 ABG 38.5 mmol/L (22-26); Oxygen Device NC; PO2 ABG 60.6 mmHg (80.0-100.0); PO2 FiO2 Ratio Arterial Blood 0
[2023-10-09 04:39] LABS: ABG PCO2 62.9 mmHg (35-45)
[2023-10-09] MEDS: benzonatate 100 mg Capsule PO (05:09)
[2023-10-09] MEDS: acetaminophen 650 mg/20.3 mL UDC PO (05:09)
[2023-10-09] MEDS: levothyroxine 50 mcg Tablet PO (05:09)
[2023-10-09] MEDS: cilostazol 100 mg Tablet PO ×2 (08:50→18:21)
[2023-10-09] MEDS: isosorbide mononitrate ER 30 mg Tablet PO (08:50)
[2023-10-09] MEDS: oseltamivir phosphate 75 mg Capsule PO ×2 (08:50→18:21)
[2023-10-09] MEDS: dilTIAZem ER (24HR) 120 mg Capsule PO (08:50)
[2023-10-09] MEDS: doxycycline 100 mg Tablet PO ×2 (08:50→18:21)
[2023-10-09] MEDS: pantoprazole DR 40 mg Tablet PO (08:50)
[2023-10-09] MEDS: clopidogrel 75 mg Tablet PO (08:50)
[2023-10-09] MEDS: enoxaparin 40 mg/0.4 mL Syringe SUBCUT (08:50)
[2023-10-09] MEDS: budesonide 0.5 mg/2 mL Neb INHALATION ×2 (09:14→19:54)
--- NOTE | 2023-10-09 11:21 | P.PN_ITS ---
Subjective 2 Subjective: on BiPAP Compensated She will stay here until Tuesday Vitals/I&O/Wt Last Vital Signs Temp 98.0 F 10/09/23 07:57 Pulse 98 10/09/23 09:17 Resp 27 H 10/09/23 09:15 BP 141/68 10/09/23 07:57 Pulse Ox 94 10/09/23 09:17 O2 Del Method BiPAP 10/09/23 09:15 O2 Flow Rate 5 10/09/23 03:57 FiO2 35 10/09/23 09:17 10/08/23 10/09/23 10/09/23 22:59 06:59 14:59 Intake Total 120 / 490 50 / 540 240 / 240 Output Total 200 / 200 100 / 300 Balance -80 / 290 -50 / 240 240 / 240 Weight last 48 hrs Weight 65.771 kg Weight 65.771 kg Physical Exam 2 Narrative: Awake and alert GCS 15 Obesity Plan- Anxiety is well-controlled today All questions were answered Nonfocal neuroexam Data 10/08/23 05:05 10/06/23 04:54 A&P Assessment and plan (1) Grade III diastolic dysfunction: (2) Benign essential HTN: (3) Peripheral arterial disease: (4) MURILLO (dyspnea on exertion): (5) Viral pneumonia: (6) Hypoxia: (7) Acute on chronic respiratory failure with hypoxia and hypercapnia: Plan Well compensated pH with hypercapnia COPD exacerbation improving Viral pneumonia Continue empirical antibiotic coverage Plan to discharge on Tuesday if we are able to get her BiPAP approved She has hypoxia and hypercapnia will definitely benefit from BiPAP, this is important to prevent readmissions and preventing intubating patient in future Attestations 2 Medical Necessity Statement*: possible discharge tomorrow Diagnoses Grade III diastolic dysfunction I51.89 Benign essential HTN I10 Peripheral arterial disease I73.9 MURILLO (dyspnea on exertion) R06.00 Viral pneumonia J12.9 Hypoxia R09.02 Acute on chronic respiratory failure with hypoxia and hypercapnia J96.21; J96.22
[2023-10-09] MEDS: atorvastatin 40 mg Tablet PO (20:20)
[2023-10-10] VITALS (16 sets, daily range): BP systolic 127–168; BP diastolic 62–79; PULSE 81–100; RESP 18–35; TEMP 36.4–36.7; O2SAT 92–96; BMI 27.3
[2023-10-10] MEDS: cefTRIAXone 1,000 MG in sodium chloride 0.9% (plus) 50 ML 100 MG IV (01:54)
[2023-10-10] MEDS: methylPREDNISolone sod succ 125 mg/2 mL INJ 60 MG IVP ×3 (01:55→17:21)
[2023-10-10] MEDS: ipratropium-albuterol 3 mL Neb INHALATION ×4 (02:41→21:28)
[2023-10-10] MEDS: levothyroxine 50 mcg Tablet PO (05:04)
[2023-10-10] MEDS: budesonide 0.5 mg/2 mL Neb INHALATION ×2 (08:32→21:28)
[2023-10-10] MEDS: dilTIAZem ER (24HR) 120 mg Capsule PO (08:39)
[2023-10-10] MEDS: cilostazol 100 mg Tablet PO ×2 (08:39→17:21)
[2023-10-10] MEDS: oseltamivir phosphate 75 mg Capsule PO ×2 (08:39→17:21)
[2023-10-10] MEDS: doxycycline 100 mg Tablet PO ×2 (08:39→17:21)
[2023-10-10] MEDS: clopidogrel 75 mg Tablet PO (08:39)
[2023-10-10] MEDS: pantoprazole DR 40 mg Tablet PO (08:39)
[2023-10-10] MEDS: isosorbide mononitrate ER 30 mg Tablet PO (08:40)
[2023-10-10] MEDS: enoxaparin 40 mg/0.4 mL Syringe SUBCUT (08:40)
[2023-10-10] MEDS: ALPRAZolam 0.5 mg Tablet 0.25 MG PO ×3 (08:44→21:50)
[2023-10-10] MEDS: benzonatate 100 mg Capsule PO (08:45)
[2023-10-10] MEDS: acetaminophen 650 mg/20.3 mL UDC PO ×2 (08:45→17:26)
--- NOTE | 2023-10-10 10:44 | P.PN_ITS ---
Subjective 2 Subjective: Patient is hypoxic she finished her pulse ox study, requires BiPAP at discharge It is very important for her to use BiPAP to prevent intubation, respiratory arrest and readmissions Anxiety is much well-controlled pH was compensated She will be discharged aspirin as we get approval for the BiPAP today Vitals/I&O/Wt Last Vital Signs Temp 97.8 F 10/10/23 08:00 Pulse 98 10/10/23 08:00 Resp 18 10/10/23 08:00 BP 168/78 10/10/23 08:00 Pulse Ox 92 10/10/23 08:00 O2 Del Method Nasal Cannula 10/10/23 08:00 O2 Flow Rate 5 10/10/23 08:00 FiO2 35 10/10/23 02:51 10/09/23 10/10/23 10/10/23 22:59 06:59 14:59 Intake Total 480 / 1200 50 / 1250 480 / 480 Output Total 200 / 400 Balance 280 / 800 50 / 850 480 / 480 Weight last 48 hrs Weight 65.771 kg Weight 65.771 kg Physical Exam 2 Narrative: Awake and alert GCS 15 No audible stridor or wheezing Using BiPAP nonfocal neuroexam Pleasant and cooperative Data 10/08/23 05:05 10/06/23 04:54 A&P Assessment and plan (1) Acute bronchitis: (2) Viral pneumonia: (3) Acute exacerbation of chronic obstructive pulmonary disease: (4) Upper respiratory infection: Qualifiers: URI type: unspecified URI Qualified Code(s): J06.9 - Acute upper respiratory infection, unspecified (5) Benign essential HTN: Plan My plan is to discharge her once we are able to arrange BiPAP for her home She suffered from viral pneumonia and got empirical antibiotic coverage during hospitalization pH is compensated No signs of PE No active signs of heart failure Attestations 2 Medical Necessity Statement*: Discharge later today versus tomorrow Diagnoses Acute bronchitis J20.9 Viral pneumonia J12.9 Acute exacerbation of chronic obstructive pulmonary disease J44.1 Upper respiratory infection J06.9 URI type: unspecified URI Benign essential HTN I10
--- NOTE | 2023-10-10 14:53 | PC.SOCIAL ---
IMM Update pg 2 of IMM updated and reviewed w/ patient. Copy provided and copy dated, initialed and placed in chart.
[2023-10-10 16:13] LABS: Clostridium Difficile PCR NOT DETECTED (NOT DETECTED)
[2023-10-10] MEDS: atorvastatin 40 mg Tablet PO (20:41)
--- NOTE | 2023-10-10 21:44 | PC.RESP ---
PATIENT REFUSED TO DO A REPEAT NOCTURNAL DESAT STUDY. PREVIOUS STUDY COMPLETED ON 5LPM NC. ABG DRAWN OFF BIPAP WELL AT THE END OF THE PREVIOUS STUDY.
[2023-10-11] VITALS (14 sets, daily range): BP systolic 98–172; BP diastolic 54–98; PULSE 68–100; RESP 16–27; TEMP 36.4–36.9; O2SAT 91–97
[2023-10-11] MEDS: ipratropium-albuterol 3 mL Neb INHALATION ×4 (01:06→20:27)
[2023-10-11] MEDS: cefTRIAXone 1,000 MG in sodium chloride 0.9% (plus) 50 ML 100 MG IV (01:57)
[2023-10-11] MEDS: methylPREDNISolone sod succ 125 mg/2 mL INJ 60 MG IVP ×2 (02:16→10:17)
[2023-10-11] MEDS: levothyroxine 50 mcg Tablet PO (05:16)
[2023-10-11] MEDS: budesonide 0.5 mg/2 mL Neb INHALATION ×2 (08:38→20:27)
[2023-10-11] MEDS: benzonatate 100 mg Capsule PO ×2 (10:15→17:52)
[2023-10-11] MEDS: lisinopril 10 mg Tablet PO (10:15)
[2023-10-11] MEDS: enoxaparin 40 mg/0.4 mL Syringe SUBCUT (10:15)
[2023-10-11] MEDS: cilostazol 100 mg Tablet PO ×3 (10:15→20:42)
[2023-10-11] MEDS: ALPRAZolam 0.5 mg Tablet 0.25 MG PO ×2 (10:15→16:29)
[2023-10-11] MEDS: dilTIAZem ER (24HR) 120 mg Capsule PO (10:16)
[2023-10-11] MEDS: oseltamivir phosphate 75 mg Capsule PO ×2 (10:16→17:52)
[2023-10-11] MEDS: clopidogrel 75 mg Tablet PO (10:16)
[2023-10-11] MEDS: isosorbide mononitrate ER 30 mg Tablet PO (10:16)
[2023-10-11] MEDS: doxycycline 100 mg Tablet PO ×2 (10:17→17:52)
[2023-10-11] MEDS: pantoprazole DR 40 mg Tablet PO (10:17)
--- NOTE | 2023-10-11 11:19 | P.PN_ITS ---
Subjective 2 Subjective: Her pulse ox was done with on room air as per the case management it has to be done on 2 L In either case patient definitely needs BiPAP at the time of discharge it is prudent to have this machine at home in order to prevent readmissions cardiac arrest respiratory arrest and intubation Patient has adapted to her new pCO2 level, at this point she is on nasal cannula 4 to 5 L Adjusted her antihypertensive regimen Vitals/I&O/Wt Last Vital Signs Temp 98.0 F 10/11/23 07:55 Pulse 92 10/11/23 08:00 Resp 22 H 10/11/23 08:00 BP 172/98 10/11/23 07:55 Pulse Ox 93 10/11/23 08:00 O2 Del Method Nasal Cannula 10/11/23 08:00 O2 Flow Rate 4 10/11/23 08:00 FiO2 35 10/11/23 04:29 10/10/23 10/11/23 10/11/23 22:59 06:59 14:59 Intake Total 720 / 1440 50 / 1490 120 / 120 Balance 720 / 1440 50 / 1490 120 / 120 Weight last 48 hrs Weight 66.769 kg Weight 65.771 kg Physical Exam 2 Narrative: No active wheezing Euvolemic Anxiety getting better No tachypnea No conversational dyspnea Hypertensive GCS 15 Nonfocal neuroexam Data 10/08/23 05:05 10/06/23 04:54 A&P Assessment and plan (1) Viral pneumonia: (2) Acute bronchitis: (3) Acute on chronic respiratory failure with hypoxia and hypercapnia: (4) Acute exacerbation of chronic obstructive pulmonary disease: (5) Grade III diastolic dysfunction: (6) Benign essential HTN: (7) MURILLO (dyspnea on exertion): Plan Adjust antihypertensive regimen Patient is awaiting BiPAP approval That is increasing her length of stay Currently she is compensated for her chronic hypoxic hypercapnic respite failure Requiring 4 to 5 L at baseline I will discontinue ceftriaxone and continue doxycycline Full code Cardiac diet Discontinue IV steroids, wheezing improved significantly Discontinue Cardizem I will rehab metoprolol Attestations 2 Medical Necessity Statement*: Awaiting approval for BiPAP Diagnoses Viral pneumonia J12.9 Acute bronchitis J20.9 Acute on chronic respiratory failure with hypoxia and hypercapnia J96.21; J96.22 Acute exacerbation of chronic obstructive pulmonary disease J44.1 Grade III diastolic dysfunction I51.89 Benign essential HTN I10 MURILLO (dyspnea on exertion) R06.00
[2023-10-11] MEDS: acetaminophen 650 mg/20.3 mL UDC PO (12:06)
[2023-10-11] MEDS: metoprolol tartrate 50 mg Tablet PO ×2 (12:06→23:38)
[2023-10-11] MEDS: amlodipine 10 mg Tablet PO (12:06)
[2023-10-11] MEDS: atorvastatin 40 mg Tablet PO (20:42)
[2023-10-12] VITALS (17 sets, daily range): BP systolic 90–134; BP diastolic 53–72; PULSE 64–90; RESP 17–25; TEMP 36.4–36.8; O2SAT 84–97; BMI 28.0
[2023-10-12] MEDS: ipratropium-albuterol 3 mL Neb INHALATION ×4 (01:47→20:47)
--- NOTE | 2023-10-12 02:12 | PC.NURSE ---
The pt was witnessed to have had 11 beats of V tach on tele. This nurse looked through past arrhythmia alarms and noted the pt has had multiple runs of SVT, sinus tach, and a few V tach. This nurse notified the hospitalist and orders were given to order labs; CMP, Mag, Phos, and Troponin. Orders put in and charge nurse as well as pt notified.
[2023-10-12 03:00] LABS: Troponin T (5th) Once 14 ng/L (0-10)
[2023-10-12 03:02] LABS: Alanine Aminotransferase 79 U/L (0-33); Albumin Level 3.2 g/dL (3.5-5.2); Alkaline Phosphatase 67 U/L (35-105); Anion Gap 13.2 (5-19); Aspartate Amino Transferase 46 U/L (0-32); Blood Urea Nitrogen 37 mg/dL (8-23); Calcium 9.3 mg/dL (8.5-10.5); Carbon Dioxide 31 mmol/L (22-29); Chloride 95 mmol/L (98-107); Globulin 2.3 g/dL (1.3-4.6); Glomerular Filtration Rate 71.1 mL/min (90-130); Glucose 318 mg/dL (65-115); Magnesium 2.1 mg/dL (1.7-2.3); Osmolality Calculated 301 mOsm/kg (285-295); Potassium 4.2 mmol/L (3.5-5.1); Sodium 135 mmol/L (136-145); Total Bilirubin 0.2 mg/dL (0.15-1.2); Total Protein 5.5 g/dL (6.6-8.7)
[2023-10-12] MEDS: levothyroxine 50 mcg Tablet PO (06:23)
[2023-10-12] MEDS: budesonide 0.5 mg/2 mL Neb INHALATION ×2 (08:19→20:47)
[2023-10-12] MEDS: cilostazol 100 mg Tablet PO ×2 (09:36→18:18)
[2023-10-12] MEDS: isosorbide mononitrate ER 30 mg Tablet PO (09:36)
[2023-10-12] MEDS: doxycycline 100 mg Tablet PO ×2 (09:36→18:18)
[2023-10-12] MEDS: amlodipine 10 mg Tablet PO (09:36)
[2023-10-12] MEDS: lisinopril 10 mg Tablet PO (09:36)
[2023-10-12] MEDS: pantoprazole DR 40 mg Tablet PO (09:36)
[2023-10-12] MEDS: clopidogrel 75 mg Tablet PO (09:36)
[2023-10-12] MEDS: enoxaparin 40 mg/0.4 mL Syringe SUBCUT (09:37)
[2023-10-12] MEDS: oseltamivir phosphate 75 mg Capsule PO ×2 (09:37→18:18)
--- NOTE | 2023-10-12 10:28 | P.DS_ITS ---
Discharge Providers Date of Admission: 10/04/23 23:02 Date of Discharge: October 12, 2023 Attending Provider at Admission: Jessica Torres MD Attending Provider at Discharge: Shantel Yap MD Primary Care Provider: Katie Dobbs Diagnoses at Discharge Discharge Diagnosis (1) Viral pneumonia: Status: Acute (2) Acute bronchitis: Status: Acute (3) Acute on chronic respiratory failure with hypoxia and hypercapnia: Status: Acute (4) Acute exacerbation of chronic obstructive pulmonary disease: Status: Acute (5) Grade III diastolic dysfunction: Status: Acute (6) Benign essential HTN: Status: Acute (7) MURILLO (dyspnea on exertion): Status: Acute Reason for Visit Reason for Visit: SoB Hospital Course Hospital Course 68-year female who was admitted for management evaluation of acute hypoxic hypercapnic respite failure, she smokes 2 cartons in a month, 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 iL outpatient, her BiPAP settings would be 18/8 FiO2 35%, her compensated pH is at pCO2 level 62 she was treated for viral pneumonia and received empirical antibiotic coverage during hospitalization. She remained afebrile. CTA was not necessitated because her D-dimer was not remarkable. CT chest consistent with COPD. She will be at risk of readmissions considering her significant anxiety, she is learning to synchronize her breathing with the BiPAP machine she will be using 4 to 5 L of oxygen at baseline Physical Exam Narrative: Awake and alert GCS 15 no active wheezing Currently on 4 L Pleasant and cooperative Has a pressure ulcer on nose from the mask Discharge Data Studies Completed and Pending Completed Studies During Hospitalization Category Date Time Status CT chest wo con [id number] Routine Cat Scan 10/05/23 12:05 Completed XR chest 1V portable [id number] Stat Exams 10/04/23 22:14 Completed Radiology Impressions Chest X-Ray 10/04/23 22:14 IMPRESSION: No acute findings. Laboratory Results WBC 8.64 10^3/uL (3.29-11.43) 10/08/23 05:05 RBC 5.47 10^6/uL (3.85-5.65) 10/08/23 05:05 Hgb 13.80 g/dL (11.27-16.99) 10/08/23 05:05 Hct 44.6 % (36-47) 10/08/23 05:05 MCV 81.5 fl (85-98) L 10/08/23 05:05 MCH 25.2 pg (27-33) L 10/08/23 05:05 MCHC 30.9 g/dL (30-55) 10/08/23 05:05 RDW 14.9 % (12.1-15.1) 10/08/23 05:05 Plt Count 314 10^3/cmm (157-399) 10/08/23 05:05 MPV 9.4 fL (7.4-10.4) 10/08/23 05:05 Neut % (Auto) 88.8 % 10/08/23 05:05 Lymph % (Auto) 8.3 % 10/08/23 05:05 [place] % (Auto) 1.9 % 10/08/23 05:05 Eos % (Auto) 0.0 % 10/08/23 05:05 Baso % (Auto) 0.1 % 10/08/23 05:05 Neut # (Auto) 7.67 10^3/uL (1.8-7.7) 10/08/23 05:05 Lymph # (Auto) 0.7 10^3/uL (0.8-4.8) L 10/08/23 05:05 [place] # (Auto) 0.2 10^3/uL (0.2-0.9) 10/08/23 05:05 Eos # (Auto) 0.0 10^3/uL (0.0-0.8) 10/08/23 05:05 Baso # (Auto) 0.0 10^3/uL (0.0-0.1) 10/08/23 05:05 Nucleated RBC % (auto) 0 % 10/08/23 05:05 Nucleated RBCs # 0.0 /100WBC 10/08/23 05:05 D-Dimer 0.44 ug/mLFEU (0-0.59) 10/04/23 23:05 Specimen Type Arterial 10/09/23 04:25 Sample Site Brachial, right 10/09/23 04:25 ABG pH 7.40 (7.35-7.45) 10/09/23 04:25 ABG pCO2 62.9 mmHg (35-45) H* 10/09/23 04:25 ABG pO2 60.6 mmHg (80.0-100.0) L 10/09/23 04:25 ABG PO2/FiO2 Ratio 0 10/09/23 04:25 ABG HCO3 38.5 mmol/L (22-26) H 10/09/23 04:25 ABG O2 Saturation 95.3 10/06/23 16:15 ABG Base Excess 10.9 mmol/L (-2.0-2.0) H 10/09/23 04:25 Virgilio Test Pos 10/09/23 04:25 A-a O2 Gradient 0.2 mmHg (5-10) L 10/06/23 16:15 Hematocrit 42.4 % (37-47) 10/09/23 04:25 Hgb O2 Saturation 93.6 % (95-100) L 10/06/23 16:15 Carboxyhemoglobin 1.2 %THgb (0.4-20.1) 10/06/23 16:15 Methemoglobin 0.6 % (0.4-1.5) 10/06/23 16:15 Total Hemoglobin 13.8 g/dL (12-16) 10/06/23 16:15 Sodium 139.0 mmol/L (131-143) 10/06/23 16:15 Potassium 4.0 mmol/L (3.5-5.0) 10/06/23 16:15 Glucose 185.0 mg/dL (70-115) H 10/06/23 16:15 Ionized Calcium 1.3 mmol/L (1.1-1.4) 10/06/23 16:15 O2 Delivery Device Nc 10/09/23 04:25 O2 Liters/Min 5.0 % 10/09/23 04:25 FiO2 40.0 % 10/09/23 04:25 Psychosocial Rehabilitation Counselor ID Alewe 10/09/23 04:25 Sodium 135 mmol/L (136-145) L 10/12/23 02:30 Potassium 4.2 mmol/L (3.5-5.1) 10/12/23 02:30 Chloride 95 mmol/L (98-107) L 10/12/23 02:30 Carbon Dioxide 31 mmol/L (22-29) H 10/12/23 02:30 Anion Gap 13.2 (5-19) 10/12/23 02:30 BUN 37 mg/dL (8-23) H 10/12/23 02:30 Creatinine 0.8 mg/dL (0.5-0.9) 10/12/23 02:30 GFR Calculation 71.1 mL/min (90-130) L 10/12/23 02:30 Glucose 318 mg/dL (65-115) H 10/12/23 02:30 Calculated Osmolality 301 mOsm/kg (285-295) H 10/12/23 02:30 Calcium 9.3 mg/dL (8.5-10.5) 10/12/23 02:30 Phosphorus 3.0 mg/dL (2.5-4.5) 10/12/23 02:30 Magnesium 2.1 mg/dL (1.7-2.3) 10/12/23 02:30 Total Bilirubin 0.2 mg/dL (0.15-1.2) 10/12/23 02:30 AST 46 U/L (0-32) H 10/12/23 02:30 ALT 79 U/L (0-33) H 10/12/23 02:30 Alkaline Phosphatase 67 U/L (35-105) 10/12/23 02:30 Troponin T 5th Gen ng/L 14 ng/L (0-10) H 10/12/23 02:30 Troponin T Baseline 16 ng/L (0-10) H 10/05/23 02:16 Troponin T 120 Minute 14.45 ng/L (0-10) H 10/05/23 05:00 Delta Troponin T -1.55 ABS# (0-10) L 10/05/23 05:00 Troponin T Hi Sens 6Hr 11.88 ng/L (0-10) H 10/05/23 08:05 Troponin T Hi Sens 6Hr Delta -4.12 ng/L (0-12) L 10/05/23 08:05 NT-Pro-B Natriuret Pep 290 pg/mL (0-125) H 10/04/23 23:05 Total Protein 5.5 g/dL (6.6-8.7) L 10/12/23 02:30 Albumin 3.2 g/dL (3.5-5.2) L 10/12/23 02:30 Globulin 2.3 g/dL (1.3-4.6) 10/12/23 02:30 Adenovirus (PCR) Not detected (NOT DETECT) 10/06/23 16:10 C. pneumoniae DNA (PCR) Not detected (NOT DETECT) 10/06/23 16:10 C. difficile Tox (PCR) Not detected (NOT DETECTED) 10/08/23 06:35 Coronavirus 229E (PCR) Not detected (NOT DETECT) 10/06/23 16:10 Human Metapneumovir PCR Not detected (NOT DETECT) 10/06/23 16:10 Influenza A (H1) PCR Not detected (NOT DETECT) 10/06/23 16:10 Influ A (H1/09) PCR Not detected (NOT DETECT) 10/06/23 16:10 Influenza A (H3) PCR Detected (NOT DETECT) A 10/06/23 16:10 Influenza Type A (PCR) Detected (NOT DETECT) A 10/06/23 16:10 Influenza Type B (PCR) Not detected (NOT DETECT) 10/06/23 16:10 M. pneumoniae (PCR) Not detected (NOT DETECT) 10/06/23 16:10 Parainfluenza 1 (PCR) Not detected (NOT DETECT) 10/06/23 16:10 Parainfluenza 2 (PCR) Not detected (NOT DETECT) 10/06/23 16:10 Parainfluenza 3 (PCR) Not detected (NOT DETECT) 10/06/23 16:10 Parainfluenza 4 (PCR) Not detected (NOT DETECT) 10/06/23 16:10 RSV Type A (PCR) Not detected (NOT DETECT) 10/06/23 16:10 RSV Type B (PCR) Not detected (NOT DETECT) 10/06/23 16:10 Entero/Rhino (PCR) Not detected (NOT DETECT) 10/06/23 16:10 SARS-CoV-2 (PCR) Not detected (NOT DETECT) 10/06/23 16:10 Vitals Last Vital Signs Temp 98.0 F 10/12/23 08:00 Pulse 87 10/12/23 08:45 Resp 20 H 10/12/23 08:00 BP 134/65 10/12/23 08:00 Pulse Ox 94 10/12/23 08:00 O2 Del Method Nasal Cannula 10/12/23 08:00 O2 Flow Rate 5 10/12/23 08:00 FiO2 35 10/12/23 04:10 Discharge Plan Discharge Patient Disposition: Home Condition: Stable Prescriptions: New lisinopril 10 mg Tablet 10 mg PO DAILY Qty: 90 2RF amlodipine 10 mg Tablet 10 mg PO DAILY Qty: 90 3RF fluticasone propion-salmeterol [Advair HFA] 45-21 mcg/actuation HFA aerosol inhaler 2 inh inhalation Q12H Qty: 12 4RF Rx Instructions: administer with spacer Spiriva Respimat 1.25 mcg/actuation mist 2 inh inhalation Q24H Qty: 4 4RF Continued clopidogrel [Plavix] 75 mg tablet 75 mg PO DAILY@0800 isosorbide mononitrate 30 mg tablet extended release 24 hr 30 mg PO DAILY@0800 omeprazole 40 mg capsule,delayed release(DR/EC) 40 mg PO DAILY PRN (Reason: Heartburn) (DME) cam boot to left See Rx Instructions .Route .MEDSUPPLY Qty: 1 0RF Rx Instructions: As directed rosuvastatin 40 mg tablet 40 mg PO DAILY@17 metoprolol tartrate 50 mg tablet 50 mg PO Q12H Qty: 180 3RF (DME) ASO to left See Rx Instructions .Route .MEDSUPPLY Qty: 1 0RF Rx Instructions: As directed (DME) Ajitator Walker See Rx Instructions .Route .MEDSUPPLY Qty: 1 0RF Rx Instructions: As directed Home magnesium L-lactate [Magtab] 84 mg tablet extended release 84 mg PO BID Qty: 60 6RF albuterol sulfate 90 mcg/actuation HFA aerosol inhaler 2 puff INHALATION QID PRN (Reason: Shortness Of Breath) Qty: 8.5 5RF omega-3 fatty acids [Fish Oil Concentrate] 1,000 mg Capsule 1,000 mg PO DAILY@08 acetaminophen [Tylenol Ex Str Rapid Release] 500 mg Tablet 500 mg PO Q6H PRN (Reason: Pain) levothyroxine 50 mcg tablet 50 mcg PO DAILY@08 nitroglycerin [Nitrostat] 0.4 mg Tablet, Sublingual 0.4 mg SUBLINGUAL Q5M PRN (Reason: Chest Pain) Rx Instructions: do not exceed 3 doses per episode cilostazol 100 mg tablet 100 mg PO BID@08,20 Discontinued albuterol sulfate 2.5 mg /3 mL (0.083 %) solution for nebulization 2.5 mg inhalation Q6H PRN (Reason: Shortness Of Breath) Discharge Orders: Discharge Order (Routine); Ordered 10/12/23 Ordered By: Shantel Yap Other Ambulatory Orders: DME: BIPAP (Order) Location: None Selected Ordered By: Shantel Yap Referrals: Jose Hernandez MD [Physician] - 7-10 days Katie Dobbs PA [Primary Care Provider] - Discharge Diet: Cardiac Discharge Activity: Increase activity as tolerated Patient Instructions: Opioid Safety, Pain Management Discharge Attestations Time Spent in Discharge Care*: greater than 30 min Status at Discharge: Cognitive status at discharge: cognitively intact , Behavioral status at discharge: cooperative , Quality Metrics Clinical Quality Measures [ No reported AMI, CVA or VTE this stay] Coding Level of Care Code Acute Code for [facility] Fwd Diagnoses Viral pneumonia J12.9 Acute bronchitis J20.9 Acute on chronic respiratory failure with hypoxia and hypercapnia J96.21; J96.22 Acute exacerbation of chronic obstructive pulmonary disease J44.1 Grade III diastolic dysfunction I51.89 Benign essential HTN I10 MURILLO (dyspnea on exertion) R06.00
--- NOTE | 2023-10-12 11:24 | PC.SOCIAL ---
IMM Update pg 2 of IMM updated and reviewed w/ patient. Copy provided and copy dated, initialed and placed in chart.
[2023-10-12] MEDS: ALPRAZolam 0.5 mg Tablet 0.25 MG PO ×2 (11:27→20:23)
[2023-10-12] MEDS: metoprolol tartrate 50 mg Tablet PO (11:30)
[2023-10-12] MEDS: sodium chloride 0.9% 500 ML 999 ML IV (14:18)
--- NOTE | 2023-10-12 18:48 | P.PN_ITS ---
Subjective 2 Subjective: Discharge order was canceled because patient remained hypotensive she was given 500 mL IV fluid bolus BiPAP has been arranged Vitals/I&O/Wt Last Vital Signs Temp 97.5 F L 10/12/23 16:00 Pulse 68 10/12/23 16:00 Resp 18 10/12/23 16:00 BP 90/53 10/12/23 16:00 Pulse Ox 94 10/12/23 16:00 O2 Del Method Nasal Cannula 10/12/23 16:00 O2 Flow Rate 5 10/12/23 13:13 FiO2 35 10/12/23 14:30 10/12/23 10/12/23 10/12/23 06:59 14:59 22:59 Intake Total 1460 / 1460 480 / 1940 Balance 1460 / 1460 480 / 1940 Weight last 48 hrs Weight 67.313 kg Weight 66.769 kg Physical Exam 2 Narrative: GCS 15 Awake and alert Currently on 4 L Blood pressure 90/53 mmhg Pleasant and cooperative S1, S2 Data 10/08/23 05:05 10/12/23 02:30 A&P Assessment and plan (1) Benign essential HTN: (2) Grade III diastolic dysfunction: (3) Peripheral arterial disease: (4) Influenza: (5) Acute exacerbation of chronic obstructive pulmonary disease: Plan Patient was given IV fluid bolus for low blood pressure, hold antihypertensive regimen BiPAP has been arranged Most likely she will be able to go home tomorrow Cancer discharge order for today Attestations 2 Medical Necessity Statement*: Discharge tomorrow Coding Level of Care Code Acute Code for [facility] Fw Diagnoses Benign essential HTN I10 Grade III diastolic dysfunction I51.89 Peripheral arterial disease I73.9 Influenza J11.1 Acute exacerbation of chronic obstructive pulmonary disease J44.1
--- NOTE | 2023-10-12 19:11 | PC.NURSE ---
Notified physician of patient having multiple loose bowel movements. Ordered C diff and collected it. Also Blood pressure still low. Patient audibly wheezing. RBVO for NS at 75mL/hour continuous. Mentioned that the patient was wheezy and short of breath with amnulation and clarified that the physician still wanted to start fluids. Physician replied yes. Will start cont. and continue to monitor for signs of fluid overload.
[2023-10-12] MEDS: atorvastatin 40 mg Tablet PO (20:23)
[2023-10-12] MEDS: sodium chloride 0.9% 1,000 ML 75 ML IV (20:29)
[2023-10-13] VITALS (18 sets, daily range): BP systolic 124–154; BP diastolic 69–75; PULSE 76–101; RESP 16–23; TEMP 36.6–36.8; O2SAT 92–97; BMI 28.4
[2023-10-13] MEDS: ipratropium-albuterol 3 mL Neb INHALATION ×4 (01:38→20:25)
[2023-10-13] MEDS: levothyroxine 50 mcg Tablet PO (05:44)
[2023-10-13] MEDS: enoxaparin 40 mg/0.4 mL Syringe SUBCUT (08:23)
[2023-10-13] MEDS: oseltamivir phosphate 75 mg Capsule PO ×2 (08:23→17:14)
[2023-10-13] MEDS: pantoprazole DR 40 mg Tablet PO (08:24)
[2023-10-13] MEDS: clopidogrel 75 mg Tablet PO (08:24)
[2023-10-13] MEDS: doxycycline 100 mg Tablet PO (08:24)
[2023-10-13] MEDS: cilostazol 100 mg Tablet PO ×2 (08:24→17:14)
[2023-10-13] MEDS: budesonide 0.5 mg/2 mL Neb INHALATION ×2 (09:30→20:25)
--- NOTE | 2023-10-13 10:20 | P.PN_ITS ---
Subjective 2 Subjective: Patient experiencing profuse diarrhea almost every 30 minutes Liquid diarrhea I will go ahead and put patient on p.o. vancomycin and discontinue doxycycline C. difficile panel will take about 2 days before finalized result Patient is agreeable to start p.o. vancomycin Blood pressure improved she required 500 mL bolus and IV fluids overnight Antihypertensive regimen was put on hold Vitals/I&O/Wt Last Vital Signs Temp 98.1 F 10/13/23 08:00 Pulse 77 10/13/23 09:49 Resp 20 H 10/13/23 09:31 BP 130/69 10/13/23 08:00 Pulse Ox 96 10/13/23 09:34 O2 Del Method BiPAP 10/13/23 09:31 O2 Flow Rate 5 10/13/23 08:00 FiO2 35 10/13/23 09:34 10/12/23 10/13/23 10/13/23 22:59 06:59 14:59 Intake Total 480 / 1940 Balance 480 / 1940 Weight last 48 hrs Weight 68.22 kg Weight 67.313 kg Physical Exam 2 Narrative: GCS 15 Awake and alert Clinically looks very dry Crackles without any active wheezing Currently on 4 L Experiencing diarrhea S1, S2 Abdomen soft Nonfocal neuroexam Data 10/08/23 05:05 10/12/23 02:30 A&P Assessment and plan (1) Diarrhea: (2) Benign essential HTN: (3) Grade III diastolic dysfunction: (4) Peripheral arterial disease: (5) Acute exacerbation of chronic obstructive pulmonary disease: (6) Hypoxia: (7) Viral pneumonia: Plan Viral pneumonia Continue Tamiflu I will discontinue doxycycline Start patient on p.o. vancomycin my concern is related to C. difficile diarrhea C. difficile panel is still pending She is requiring IV fluids required IV bolus last night that was a reason to cancel her discharge orders Her antihypertensive regimen has been on hold Today I will discontinue IV fluids her blood pressure is 130s/69 mmHg, I will only resume amlodipine for now We have arranged BiPAP for her, at baseline requires 4 to 5 L Attestations 2 Medical Necessity Statement*: Patient cannot go home because of her active diarrhea Cancel discharge orders Diagnoses Diarrhea R19.7 Benign essential HTN I10 Grade III diastolic dysfunction I51.89 Peripheral arterial disease I73.9 Acute exacerbation of chronic obstructive pulmonary disease J44.1 Hypoxia R09.02 Viral pneumonia J12.9
[2023-10-13] MEDS: cholestyramine powder 4 gm Pkt PO ×2 (10:54→17:14)
[2023-10-13] MEDS: vancomycin 125 mg Capsule PO ×4 (10:54→21:13)
[2023-10-13] MEDS: ALPRAZolam 0.5 mg Tablet 0.25 MG PO (14:51)
[2023-10-13] MEDS: atorvastatin 40 mg Tablet PO (21:13)
[2023-10-14] VITALS (9 sets, daily range): BP systolic 120–136; BP diastolic 68–76; PULSE 80–96; RESP 16–23; TEMP 36.7–36.9; O2SAT 93–96; BMI 27.5
[2023-10-14] MEDS: ipratropium-albuterol 3 mL Neb INHALATION ×2 (01:23→09:06)
[2023-10-14] MEDS: levothyroxine 50 mcg Tablet PO (05:12)
[2023-10-14 05:35] LABS: Basophils % 0.2 %; Eosinophils % 0.2 %; Hematocrit 43.1 % (36-47); Lymphocytes # 2.5 10^3/uL (0.8-4.8); Lymphocytes % 20.3 %; Mean Corpuscular HGB Conc 31.6 g/dL (30-55); Mean Corpuscular Hemoglobin 24.9 pg (27-33); Mean Corpuscular Volume 78.8 fl (85-98); Mean Platelet Volume 9.3 fL (7.4-10.4); Monocytes # 0.8 10^3/uL (0.2-0.9); Monocytes % 6.3 %; Neutrophils % 72.2 %; Nucleated Red Blood Cells % 0 %; Platelet Count 315 10^3/cmm (157-399); Red Blood Count 5.47 10^6/uL (3.85-5.65); White Blood Count 12.18 10^3/uL (3.29-11.43)
[2023-10-14 06:05] LABS: Blood Urea Nitrogen 14 mg/dL (8-23); Calcium 8.7 mg/dL (8.5-10.5); Carbon Dioxide 30 mmol/L (22-29); Chloride 100 mmol/L (98-107); Glomerular Filtration Rate 122.3 mL/min (90-130); Glucose 101 mg/dL (65-115); Osmolality Calculated 287 mOsm/kg (285-295); Sodium 138 mmol/L (136-145)
[2023-10-14 06:06] LABS: Lipase 18 U/L (13-60)
[2023-10-14 06:13] LABS: Anion Gap 12.2 (5-19); Potassium 4.2 mmol/L (3.5-5.1)
[2023-10-14] MEDS: ALPRAZolam 0.5 mg Tablet 0.25 MG PO ×2 (06:26→12:52)
[2023-10-14] MEDS: budesonide 0.5 mg/2 mL Neb INHALATION (09:06)
--- NOTE | 2023-10-14 09:18 | PC.SOCIAL ---
IMM Update pg 2 of IMM updated and reviewed w/ patient. Copy provided and copy dated, initialed and placed in chart.
[2023-10-14] MEDS: enoxaparin 40 mg/0.4 mL Syringe SUBCUT (09:54)
[2023-10-14] MEDS: amlodipine 10 mg Tablet PO (09:54)
[2023-10-14] MEDS: cilostazol 100 mg Tablet PO (09:55)
[2023-10-14] MEDS: clopidogrel 75 mg Tablet PO (09:55)
[2023-10-14] MEDS: pantoprazole DR 40 mg Tablet PO (09:55)
[2023-10-14] MEDS: oseltamivir phosphate 75 mg Capsule PO (10:53)
[2023-10-14] MEDS: vancomycin 125 mg Capsule PO ×2 (10:53→12:53)
[2023-10-14] MEDS: cholestyramine powder 4 gm Pkt PO (10:54)
--- NOTE | 2023-10-14 11:06 | PM.DCS ---
Discharge Providers Date of Admission: 10/04/23 23:02 Date of Discharge: October 14, 2023 Attending Provider at Admission: Jessica Torres MD Attending Provider at Discharge: Shantel Yap MD Primary Care Provider: Katie Dobbs Diagnoses at Discharge Discharge Diagnosis (1) Diarrhea: Status: Acute (2) Benign essential HTN: Status: Acute (3) Grade III diastolic dysfunction: Status: Acute (4) Peripheral arterial disease: Status: Acute (5) Acute exacerbation of chronic obstructive pulmonary disease: Status: Acute (6) Hypoxia: Status: Acute (7) Viral pneumonia: Status: Acute Reason for Visit Reason for Visit: SoB Hospital Course Hospital Course 68-year female who was admitted for management evaluation of acute hypoxic hypercapnic respite failure, she smokes 2 cartons in a month, she has not seen a medical billing coder, during hospitalization she required 4 to 5 L of oxygen qualified for BiPAP approval, overnight pulse ox study was done as well I will discharge patient on albuterol, Advair, Spiriva with referral to see Dr. Li outpatient, her BiPAP settings would be 18/8 FiO2 35%, her compensated pH is at pCO2 level 62 she was treated for viral pneumonia and received empirical antibiotic coverage during hospitalization. She remained afebrile. CTA was not necessitated because her D-dimer was not remarkable. CT chest consistent with COPD. She will be at risk of readmissions considering her significant anxiety, she is learning to synchronize her breathing with the BiPAP machine she will be using 4 to 5 L of oxygen at baseline Patient's discharge orders was canceled because of her profuse diarrhea, C. difficile panel is still pending at the time of discharge I will give her p.o. vancomycin 10-day regimen, she only had 1 bowel movement at the time of discharge and 3 bowel movement 24 hours before discharge She is not showing signs of hypotension anymore, she is afebrile mild leukocytosis Normal creatinine Patient is willing to go home today Physical Exam Narrative: Awake and alert Euvolemic GCS 15 Pleasant Abdomen soft Nonfocal neuroexam Currently on 4 L Discharge Data Studies Completed and Pending Completed Studies During Hospitalization Category Date Time Status CT chest wo con [id number] Routine Cat Scan 10/05/23 12:05 Completed XR chest 1V portable [id number] Stat Exams 10/04/23 22:14 Completed Pending at discharge Category Date Time Status Clostridium Difficile PCR Routine Lab 10/12/23 19:45 Ordered OVA and Parasites, Conc and PE Routine Lab 10/12/23 19:45 Ordered Radiology Impressions Chest X-Ray 10/04/23 22:14 IMPRESSION: No acute findings. Laboratory Results WBC 12.18 10^3/uL (3.29-11.43) H 10/14/23 05:11 RBC 5.47 10^6/uL (3.85-5.65) 10/14/23 05:11 Hgb 13.60 g/dL (11.27-16.99) 10/14/23 05:11 Hct 43.1 % (36-47) 10/14/23 05:11 MCV 78.8 fl (85-98) L 10/14/23 05:11 MCH 24.9 pg (27-33) L 10/14/23 05:11 MCHC 31.6 g/dL (30-55) 10/14/23 05:11 RDW 15.0 % (12.1-15.1) 10/14/23 05:11 Plt Count 315 10^3/cmm (157-399) 10/14/23 05:11 MPV 9.3 fL (7.4-10.4) 10/14/23 05:11 Neut % (Auto) 72.2 % 10/14/23 05:11 Lymph % (Auto) 20.3 % 10/14/23 05:11 [place] % (Auto) 6.3 % 10/14/23 05:11 Eos % (Auto) 0.2 % 10/14/23 05:11 Baso % (Auto) 0.2 % 10/14/23 05:11 Neut # (Auto) 8.80 10^3/uL (1.8-7.7) H 10/14/23 05:11 Lymph # (Auto) 2.5 10^3/uL (0.8-4.8) 10/14/23 05:11 [place] # (Auto) 0.8 10^3/uL (0.2-0.9) 10/14/23 05:11 Eos # (Auto) 0.0 10^3/uL (0.0-0.8) 10/14/23 05:11 Baso # (Auto) 0.0 10^3/uL (0.0-0.1) 10/14/23 05:11 Nucleated RBC % (auto) 0 % 10/14/23 05:11 Nucleated RBCs # 0.0 /100WBC 10/14/23 05:11 D-Dimer 0.44 ug/mLFEU (0-0.59) 10/04/23 23:05 Specimen Type Arterial 10/09/23 04:25 Sample Site Brachial, right 10/09/23 04:25 ABG pH 7.40 (7.35-7.45) 10/09/23 04:25 ABG pCO2 62.9 mmHg (35-45) H* 10/09/23 04:25 ABG pO2 60.6 mmHg (80.0-100.0) L 10/09/23 04:25 ABG PO2/FiO2 Ratio 0 10/09/23 04:25 ABG HCO3 38.5 mmol/L (22-26) H 10/09/23 04:25 ABG O2 Saturation 95.3 10/06/23 16:15 ABG Base Excess 10.9 mmol/L (-2.0-2.0) H 10/09/23 04:25 Virgilio Test Pos 10/09/23 04:25 A-a O2 Gradient 0.2 mmHg (5-10) L 10/06/23 16:15 Hematocrit 42.4 % (37-47) 10/09/23 04:25 Hgb O2 Saturation 93.6 % (95-100) L 10/06/23 16:15 Carboxyhemoglobin 1.2 %THgb (0.4-20.1) 10/06/23 16:15 Methemoglobin 0.6 % (0.4-1.5) 10/06/23 16:15 Total Hemoglobin 13.8 g/dL (12-16) 10/06/23 16:15 Sodium 139.0 mmol/L (131-143) 10/06/23 16:15 Potassium 4.0 mmol/L (3.5-5.0) 10/06/23 16:15 Glucose 185.0 mg/dL (70-115) H 10/06/23 16:15 Ionized Calcium 1.3 mmol/L (1.1-1.4) 10/06/23 16:15 O2 Delivery Device Nc 10/09/23 04:25 O2 Liters/Min 5.0 % 10/09/23 04:25 FiO2 40.0 % 10/09/23 04:25 Sailing Officer ID Wallace 10/09/23 04:25 Sodium 138 mmol/L (136-145) 10/14/23 05:11 Potassium 4.2 mmol/L (3.5-5.1) 10/14/23 05:11 Chloride 100 mmol/L (98-107) 10/14/23 05:11 Carbon Dioxide 30 mmol/L (22-29) H 10/14/23 05:11 Anion Gap 12.2 (5-19) 10/14/23 05:11 BUN 14 mg/dL (8-23) 10/14/23 05:11 Creatinine 0.5 mg/dL (0.5-0.9) 10/14/23 05:11 GFR Calculation 122.3 mL/min (90-130) 10/14/23 05:11 Glucose 101 mg/dL (65-115) 10/14/23 05:11 Calculated Osmolality 287 mOsm/kg (285-295) 10/14/23 05:11 Calcium 8.7 mg/dL (8.5-10.5) 10/14/23 05:11 Phosphorus 3.0 mg/dL (2.5-4.5) 10/12/23 02:30 Magnesium 2.1 mg/dL (1.7-2.3) 10/12/23 02:30 Total Bilirubin 0.2 mg/dL (0.15-1.2) 10/12/23 02:30 AST 46 U/L (0-32) H 10/12/23 02:30 ALT 79 U/L (0-33) H 10/12/23 02:30 Alkaline Phosphatase 67 U/L (35-105) 10/12/23 02:30 Troponin T 5th Gen ng/L 14 ng/L (0-10) H 10/12/23 02:30 Troponin T Baseline 16 ng/L (0-10) H 10/05/23 02:16 Troponin T 120 Minute 14.45 ng/L (0-10) H 10/05/23 05:00 Delta Troponin T -1.55 ABS# (0-10) L 10/05/23 05:00 Troponin T Hi Sens 6Hr 11.88 ng/L (0-10) H 10/05/23 08:05 Troponin T Hi Sens 6Hr Delta -4.12 ng/L (0-12) L 10/05/23 08:05 NT-Pro-B Natriuret Pep 290 pg/mL (0-125) H 10/04/23 23:05 Total Protein 5.5 g/dL (6.6-8.7) L 10/12/23 02:30 Albumin 3.2 g/dL (3.5-5.2) L 10/12/23 02:30 Globulin 2.3 g/dL (1.3-4.6) 10/12/23 02:30 Lipase 18 U/L (13-60) 10/14/23 05:11 Adenovirus (PCR) Not detected (NOT DETECT) 10/06/23 16:10 C. pneumoniae DNA (PCR) Not detected (NOT DETECT) 10/06/23 16:10 C. difficile Tox (PCR) Not detected (NOT DETECTED) 10/08/23 06:35 Coronavirus 229E (PCR) Not detected (NOT DETECT) 10/06/23 16:10 Human Metapneumovir PCR Not detected (NOT DETECT) 10/06/23 16:10 Influenza A (H1) PCR Not detected (NOT DETECT) 10/06/23 16:10 Influ A (H1/09) PCR Not detected (NOT DETECT) 10/06/23 16:10 Influenza A (H3) PCR Detected (NOT DETECT) A 10/06/23 16:10 Influenza Type A (PCR) Detected (NOT DETECT) A 10/06/23 16:10 Influenza Type B (PCR) Not detected (NOT DETECT) 10/06/23 16:10 M. pneumoniae (PCR) Not detected (NOT DETECT) 10/06/23 16:10 Parainfluenza 1 (PCR) Not detected (NOT DETECT) 10/06/23 16:10 Parainfluenza 2 (PCR) Not detected (NOT DETECT) 10/06/23 16:10 Parainfluenza 3 (PCR) Not detected (NOT DETECT) 10/06/23 16:10 Parainfluenza 4 (PCR) Not detected (NOT DETECT) 10/06/23 16:10 RSV Type A (PCR) Not detected (NOT DETECT) 10/06/23 16:10 RSV Type B (PCR) Not detected (NOT DETECT) 10/06/23 16:10 Entero/Rhino (PCR) Not detected (NOT DETECT) 10/06/23 16:10 SARS-CoV-2 (PCR) Not detected (NOT DETECT) 10/06/23 16:10 Vitals Last Vital Signs Temp 98.4 F 10/14/23 07:55 Pulse 86 10/14/23 09:05 Resp 20 H 10/14/23 09:05 BP 136/75 10/14/23 07:55 Pulse Ox 93 10/14/23 09:05 O2 Del Method Nasal Cannula 10/14/23 09:05 O2 Flow Rate 5 10/14/23 09:05 FiO2 35 10/14/23 04:00 Discharge Plan Discharge Patient Disposition: Home Condition: Stable Prescriptions: New amlodipine 10 mg Tablet 10 mg PO DAILY Qty: 90 3RF lisinopril 10 mg Tablet 10 mg PO DAILY Qty: 90 2RF Spiriva Respimat 1.25 mcg/actuation mist 2 inh inhalation Q24H Qty: 4 4RF Advair HFA 45-21 mcg/actuation HFA aerosol inhaler 2 inh inhalation Q12H Qty: 12 4RF Rx Instructions: administer with spacer vancomycin 125 mg capsule 125 mg PO Q6H 10 Days Qty: 40 0RF Cholestyramine Light 4 gram powder 4 g PO BID Qty: 201.6 0RF Rx Instructions: administer w/meal; avoid other meds within 1hr before or 4-6hr after dose Continued clopidogrel [Plavix] 75 mg tablet 75 mg PO DAILY@0800 isosorbide mononitrate 30 mg tablet extended release 24 hr 30 mg PO DAILY@0800 omeprazole 40 mg capsule,delayed release(DR/EC) 40 mg PO DAILY PRN (Reason: Heartburn) (DME) cam boot to left See Rx Instructions .Route .MEDSUPPLY Qty: 1 0RF Rx Instructions: As directed rosuvastatin 40 mg tablet 40 mg PO DAILY@17 metoprolol tartrate 50 mg tablet 50 mg PO Q12H Qty: 180 3RF (DME) ASO to left See Rx Instructions .Route .MEDSUPPLY Qty: 1 0RF Rx Instructions: As directed (DME) Rollator Walker See Rx Instructions .Route .MEDSUPPLY Qty: 1 0RF Rx Instructions: As directed Home magnesium L-lactate [Magtab] 84 mg tablet extended release 84 mg PO BID Qty: 60 6RF albuterol sulfate 90 mcg/actuation HFA aerosol inhaler 2 puff INHALATION QID PRN (Reason: Shortness Of Breath) Qty: 8.5 5RF omega-3 fatty acids 1,000 mg Capsule 1,000 mg PO DAILY@08 acetaminophen 500 mg Tablet 500 mg PO Q6H PRN (Reason: Pain) levothyroxine 50 mcg tablet 50 mcg PO DAILY@08 nitroglycerin [Nitrostat] 0.4 mg Tablet, Sublingual 0.4 mg SUBLINGUAL Q5M PRN (Reason: Chest Pain) Rx Instructions: do not exceed 3 doses per episode cilostazol 100 mg tablet 100 mg PO BID@08,20 Discontinued albuterol sulfate 2.5 mg /3 mL (0.083 %) solution for nebulization 2.5 mg inhalation Q6H PRN (Reason: Shortness Of Breath) Discharge Orders: Discharge Order (Routine); Ordered 10/14/23 Ordered By: Shantel Yap Other Ambulatory Orders: DME: BIPAP (Order) Location: None Selected Ordered By: Shantel Yap DME: Oxygen (Order) Location: None Selected Ordered By: Shantel Yap Referrals: Datar,Jose Huerta MD [Physician] - 10/14/23 11:00 am (New Bipap orde) Katie Dobbs PA [Primary Care Provider] - 10/18/23 9:40 am Discharge Diet: Cardiac Discharge Activity: Increase activity as tolerated Patient Instructions: Lisinopril (By mouth), Doxycycline (By mouth), Amlodipine (By mouth), Fluticasone (By breathing), Viral Pneumonia (DC), Opioid Safety, Pain Management Discharge Attestations Time Spent in Discharge Care*: greater than 30 min Status at Discharge: Cognitive status at discharge: cognitively intact, Behavioral status at discharge: cooperative, Quality Metrics Clinical Quality Measures [ No reported AMI, CVA or VTE this stay] Coding Level of Care Code Acute Code for Chg Fwd Diagnoses Diarrhea R19.7 Benign essential HTN I10 Grade III diastolic dysfunction I51.89 Peripheral arterial disease I73.9 Acute exacerbation of chronic obstructive pulmonary disease J44.1 Hypoxia R09.02 Viral pneumonia J12.9
== END 2023-10-14 15:55 | disposition home or self-care (01) | DRG 189 ==
LOC: ER 23:33 → MEDSURG 23:55
PROVIDERS: Family Medicine; Admitting Provider Student in an Organized Health Care Education/Training Program; Emergency Provider Emergency Medicine; PCP Physician Assistant; Visit Provider Internal Medicine
DX: J96.22 Acute and chronic respiratory failure with hypercapnia (principal); J10.08 Influenza due to other identified influenza virus with other specified pneumonia; J12.9 Viral pneumonia, unspecified; J44.0 Chronic obstructive pulmonary disease with (acute) lower respiratory infection; J44.1 Chronic obstructive pulmonary disease with (acute) exacerbation; J96.21 Acute and chronic respiratory failure with hypoxia; F17.210 Nicotine dependence, cigarettes, uncomplicated; Z99.81 Dependence on supplemental oxygen; Z91.199 Patient's noncompliance with other medical treatment and regimen due to unspecified reason; R19.7 Diarrhea, unspecified; Z20.822 Contact with and (suspected) exposure to COVID-19; I73.9 Peripheral vascular disease, unspecified; I10 Essential (primary) hypertension; F41.9 Anxiety disorder, unspecified; K21.9 Gastro-esophageal reflux disease without esophagitis; E78.5 Hyperlipidemia, unspecified; E03.9 Hypothyroidism, unspecified; I25.10 Atherosclerotic heart disease of native coronary artery without angina pectoris; J20.9 Acute bronchitis, unspecified
CPT/HCPCS: 36415; 36600; 71045; 71250; 80048; 80051; 80053; 82330; 82803; 82805; 83690; 83735; 83880; 84100; 84484; 85025; 85378; 87426; 87486; 87493; 87581; 87633; 87804; 92610; 93005; 94640; 94660; 94760; 94762; 96372; 99284; 99285; J0696; J1100; J1650; J2920; J2930; J7030; J7040; J7512; J7613; J7626; Q0144

== ENCOUNTER → 2023-10-21 07:58 | Outpatient (BNVA) | payer MEDICARE, SELFPAY | PROVIDERS: PCP Physician Assistant; Visit Provider Internal Medicine Pulmonary Disease | DX: J43.8 Other emphysema (principal); J44.9 Chronic obstructive pulmonary disease, unspecified; I95.9 Hypotension, unspecified; Z87.891 Personal history of nicotine dependence; J96.11 Chronic respiratory failure with hypoxia; J96.12 Chronic respiratory failure with hypercapnia; R00.2 Palpitations; R42 Dizziness and giddiness | CPT/HCPCS: 36415; 80048; 99204 ==

== ENCOUNTER 2023-11-30 07:54 | Outpatient (CLI) | payer MEDICARE, SELFPAY ==
[2023-11-30 08:22] VITALS: PULSE 74; RESP 18; O2SAT 98
[2023-11-30] MEDS: albuterol 2.5 mg/3 mL Neb INHALATION (08:22)
[2023-11-30 08:27] VITALS: PULSE 76
== END 2023-11-30 07:55 | disposition home or self-care (01) ==
LOC: RT 07:56
PROVIDERS: PCP Physician Assistant; Visit Provider Internal Medicine Pulmonary Disease
DX: J43.9 Emphysema, unspecified (principal)
CPT/HCPCS: 94060; 94618; 94729; J7613

== ENCOUNTER → 2024-02-22 11:23 | Outpatient (BNVA) | payer MEDICARE, SELFPAY | PROVIDERS: PCP Physician Assistant; Visit Provider Internal Medicine Cardiovascular Disease | DX: R00.1 Bradycardia, unspecified (principal); R55 Syncope and collapse; E78.2 Mixed hyperlipidemia; I25.118 Atherosclerotic heart disease of native coronary artery with other forms of angina pectoris; F17.210 Nicotine dependence, cigarettes, uncomplicated; I10 Essential (primary) hypertension | CPT/HCPCS: 99214 ==

== ENCOUNTER 2024-06-26 10:27 | Outpatient (CLI) | payer MEDICARE, SELFPAY ==
--- NOTE | 2024-06-26 10:28 | CT_ITS ---
WS: [id number] LDCT LUNG CANCER SCREENING HISTORY: NICOTINE DEPENDENCE,CIGARETTES TECHNIQUE: Axial imaging performed from the apices to 1 cm below the costophrenic angles. Coronal and sagittal reformats are submitted with axial MIP series. All CT scans at [facility] use at least one of these dose optimization techniques: automated exposure control; mA and/or kV adjustment per patient size (includes targeted exams where dose is matched to clinical indication); or iterativ e reconstruction. DLP: 52.50 mGy.cm DIvol: Mean CTDIvol: 1.00 (mGy) COMPARISON: 10/05/2023 Diagnostic quality: Satisfactory Lungs: Pulmonary hyperinflation. Tiny micronodule LEFT upper lobe, image 49 series 4. Stable micronod ule image 62 series 4 RIGHT upper lobe. There are a few scattered calcified granulomata. Subsegmental atelectasis at the lingula. No endobronchial lesions. Heart: Normal size heart with no pericardial effusion.. Other findings: No adenopathy identified. Mild pulmonary dilatation. Mild atherosclerosis aorta. Smal l hiatal hernia. No adrenal mass. Increase in thoracic kyphosis. CT/CT lung screening [id number] IMPRESSION: LUNG-RADS: 2-Benign Appearance or Behavior FOLLOW UP: 12 Month: Continue annual screening with LDCT OTHER FINDINGS (S MODIFIER): None.
== END 2024-06-26 10:28 | disposition home or self-care (01) ==
LOC: RAD 10:27
PROVIDERS: PCP Physician Assistant; Visit Provider Physician Assistant
DX: Z12.2 Encounter for screening for malignant neoplasm of respiratory organs (principal); F17.210 Nicotine dependence, cigarettes, uncomplicated; R91.8 Other nonspecific abnormal finding of lung field; J84.10 Pulmonary fibrosis, unspecified; J98.11 Atelectasis; K44.9 Diaphragmatic hernia without obstruction or gangrene
CPT/HCPCS: 71271

== ENCOUNTER 2024-06-28 07:31 | Outpatient (CLI) | payer MEDICARE, SELFPAY ==
--- NOTE | 2024-06-28 | ECG_ITS ---
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 Interpretive Statements LEXISCAN SESTAMIBI STRESS TEST Procedure: At the baseline, the blood pressure was 121/67mmHg with a heart rate of 60 bpm. The electrocardiogram showed normal sinus rhythm, normal axis with normal ST and T's. The Lexiscan was infused over a period of 20 seconds. A total of 0.4 mg of Lexiscan was infused. The stress phase was continued for a total of 5 minutes. Heart rate was at the end of stress phase was 81 bpm and a blood pressure of 114/68 mmHg. The EKG at the peak infusion revealed normal sinus rhythm with no significant ST-T wave changes. Sestamibi was injected 20 seconds after the Lexiscan infusion. Blood pressure at the end of recovery phase was 118/64 mmHg with a heart rate of 78 bpm. Conclusion: 1. Normal EKG response to Lexiscan infusion 2. No Lexiscan induced chest pain or cardiac arrhythmia. 3. Normal blood pressure and heart rate response. 4. Sestamibi/sestamibi perfusion scan pending; see separate report. Electronically Signed On 07-06-2024 21:17:00 CDT by Marc Brewer M.D. [email or web address]
[2024-06-28 07:52] VITALS: BMI 27.0
--- NOTE | 2024-06-28 07:57 | NMCV_ITS ---
NM genaro perf SPECT r/s* [id number] Cinthia Palacios Age: 69 Gender: F : 1955 Exam Date: 06/28/2024 07:57 Ordering Phys: Katie Dobbs Technologist: LASHAY Young Exam Location: [facility] Indications: CP STRESS TEST Please see separate stress test report in [facility] for full findings IMAGE PROTOCOL Rest/Stress 1 Lexiscan Day Radiopharmaceutical Dose (mCi) Administration Site Administered by Rest: Tc-99m 10.9 IV LASHAY Olivarez Sestamibi Stress:Tc-99m 33.0 IV LASHAY Young Sestamicecile Rest: 28-Jun-2024 60 Discovery 630 Stress: 28-Jun-2024 30 Discovery 630 0.4mg Lexiscan. Supine position only as patient was unable to lay prone. SPECT RESULTS Technical Quality: Good Raw Data Analysis: Breast attenuation Image Corrections: No attenuation or motion correction applied Summed Stress Score: 5 Summed Rest Score: 7 Summed Difference Score: 1 PERFUSION FINDINGS Small area of fixed perfusion defect noted in the apical region of the left ventricle on both stress and rest images suggestive of possible apical thinning artifact FUNCTIONAL RESULTS (calculated via Gated SPECT) Stress Image LV EF (%): 73 Stress EDV (mL):75 TID: 1.17 Stress ESV (mL):20 FUNCTIONAL FINDINGS: There is normal left ventricular systolic function. TID ratio is elevated which could be secondary to left ventricle hypertrophy IMPRESSIONS This study is negative for ischemia Shantel Wang MD (Electronically Signed) Final Date: 29 June 2024 20:16 S
[2024-06-28] MEDS: regadenoson 0.4 Mg/5 ml Syringe IVP (10:10)
[2024-06-28 10:31] VITALS: BP 138/64; PULSE 62
== END 2024-06-28 07:32 | disposition home or self-care (01) ==
LOC: CDL 07:35
PROVIDERS: PCP Physician Assistant; Visit Provider Physician Assistant
DX: R07.9 Chest pain, unspecified (principal); R06.02 Shortness of breath; R94.39 Abnormal result of other cardiovascular function study
CPT/HCPCS: 36415; 78452; 93017; 96374; A9500; J2785

== ENCOUNTER 2024-07-05 13:55 | Outpatient (CLI) | payer MEDICARE, SELFPAY ==
--- NOTE | 2024-07-05 14:13 | XR_ITS ---
WS: [id number] SCREENING DEXA SCAN [facility] CLINICAL INFORMATION: POSTMENOPAUSAL COMPARISON: 2021 FINDINGS: The L1-L4 bone mineral density measures 0.757 g/cm2. This corresponds to a T score score of -3.5 and Z score of -1.8. Left femoral neck bone mineral density measures 0.582 g/cm2. This corresponds to a T score of -3.4 an d Z score of -1.9. Right femoral neck bone mineral density measures 0.570 g/cm2. This corresponds to a T score -3.5of an d Z score of -2.0. Mean femoral neck bone mineral density measures 0.576 g/cm2. This corresponds to a T score of -3.4 an d Z score of -1.9. XR/XR DEXA axial skeleton* [id number] IMPRESSION: Osteoporosis lumbar spine. Osteoporosis femoral necks. Patient's FRAX calculated 10 year probability for major osteoporotic fracture i s 42.3% and osteoporotic hip fracture is 25.5%. Bone mineral density lumbar spine increased 2.4% lumbar spine Bone mineral density femoral necks increased 1.4% femoral necks
== END 2024-07-05 13:56 | disposition home or self-care (01) ==
LOC: RAD 13:56
PROVIDERS: PCP Physician Assistant; Visit Provider Physician Assistant
DX: Z13.820 Encounter for screening for osteoporosis (principal); Z78.0 Asymptomatic menopausal state
CPT/HCPCS: 77080

== ENCOUNTER 2024-08-01 07:59 | Outpatient (CLI) | payer MEDICARE, SELFPAY ==
--- NOTE | 2024-08-01 08:10 | USCV_ITS ---
Cinthia Palacios Age: 69 Gender: F : 1955 Exam Date: 08/01/2024 08:33 Ordering Phys: Katie Dobbs Technologist: CT Exam Location: [facility] [place] Indication: BP: 120 / 80 HR: 63 Rhythm: Sinus Technical Quality: Adequate MEASUREMENTS (Male / Female) Normal Values 2D ECHO LVOT Diameter 2.0 cm LV Ejection Fraction MOD 4C 68.6 % LV Ejection Fraction MOD 2C 73.8 % LV Ejection Fraction 2C AL 75.1 % LA Diameter 3.0 cm RA Systolic Volume 4C AL 16.1 ml RA Systolic Volume 4C MOD 16.1 ml LA Sys Volume AL 28.0 cm cubed LA Sys Volume Index AL 16.5 cm cubed/m squared Aorta at Sinotubular Diameter 1.8 cm IVC Diameter 1.4 cm M-MODE LA Ao Ratio MM 1.5 AV Cusp Separation MM 1.9 cm DOPPLER AV Peak Velocity 202.0 cm/s AV Area Cont Eq vti 2.3 cm squared AV Area Cont Eq pk 2.0 cm squared MV Peak Velocity 133.0 cm/s MV Area PHT 2.5 cm squared Mitral E to A Ratio 1.4 TV Peak Velocity 274.5 cm/s TR Peak Velocity 317.0 cm/s TR Peak Gradient 40.2 mmHg TV Peak E Velocity 60.0 cm/s Right Atrial Pressure 3.0 mmHg Pulmonary Artery Systolic Pressu 43.2 mmHg PV Peak Velocity 114.5 cm/s FINDINGS Left Ventricle Normal left ventricular size and systolic function, EF 70%. No regional wall motion abnormalities. Right Ventricle The right ventricle is normal in size and function. Right Atrium The right atrium is normal in size. Left Atrium The left atrium is normal in size. Mitral Valve Mildly thickened mitral valve. Mild mitral valve regurgitation. Aortic Valve No gross abnormalities noted Tricuspid Valve No gross abnormalities noted Pulmonic Valve No gross abnormalities noted Pericardium Normal pericardium without effusion. Aorta Normal ascending aorta dimension. IVC Normal inferior vena cava. CONCLUSIONS Normal left ventricular size and systolic function, EF 70%. No regional wall motion abnormalities. Mildly thickened mitral valve. Mild mitral valve regurgitation. There is no pericardial effusion. There are no intracardiac masses. Compared to the study from 03/14/2023, there may not be a significant change Dr Marilyn Moore MD FACC (Electronically Signed) Final Date: 01 August 2024 18:19 S
== END 2024-08-01 08:00 | disposition home or self-care (01) ==
PROVIDERS: PCP Physician Assistant; Visit Provider Physician Assistant
DX: R07.9 Chest pain, unspecified (principal)
CPT/HCPCS: 93306

== ENCOUNTER → 2024-08-13 14:42 | Outpatient (BNVA) | payer MEDICARE, SELFPAY | PROVIDERS: PCP Physician Assistant; Visit Provider Specialist | DX: M79.642 Pain in left hand (principal); M65.332 Trigger finger, left middle finger; M65.312 Trigger thumb, left thumb | CPT/HCPCS: 73130; 99214 ==

== ENCOUNTER 2024-11-23 02:23 | Inpatient (IN) | payer MEDICARE, SELFPAY ==
[2024-11-23] VITALS (14 sets, daily range): BP systolic 107–169; BP diastolic 50–102; PULSE 65–78; RESP 18–24; TEMP 36.4–36.8; O2SAT 91–97; BMI 26.4
--- NOTE | 2024-11-23 02:28 | XRR_ITS ---
PROCEDURE INFORMATION: Exam: XR Chest Exam date and time: 11/23/2024 2:44 AM Age: 69 years old Clinical indication: Shortness of breath TECHNIQUE: Imaging protocol: Radiologic exam of the chest. Views: 1 view. COMPARISON: CR XR chest 2V* [id number] 05/22/2024 10:49 AM FINDINGS: Lungs: New right basilar atelectasis or pneumonia. Pleural spaces: Unremarkable. No pleural effusion. No pneumothorax. Heart/Mediastinum: Unremarkable. No cardiomegaly. Bones/joints: Unremarkable. XR/XR chest 1V portable [id number] IMPRESSION: New right basilar atelectasis or pneumonia. Correlate clinically.
--- NOTE | 2024-11-23 02:29 | ED_ITS ---
HPI - SOB/Dyspnea 2 General: Chief Complaint: Shortness of Breath/Dyspnea Stated Complaint: SOB Time Seen by Provider: 11/23/24 02:25 History of Present Illness: HPI Narrative: 69-year-old female with a history of PLATE FILLER D, chronic hypoxemic respiratory failure on 5 L nasal cannula at all time, tobacco dependence, hyperlipidemia, hypothyroidism, hypertension And coronary artery disease who presents to the emergency room by ambulance with shortness of breath. She says this started earlier this evening maybe a couple of hours ago. Said it became very severe. She satting 91% on her home 5 L nasal cannula but is working pretty hard on presentation. No chest pain. No fevers. She has had some cough. No altered mental status. No focal motor deficits. No vomiting. Related Data Home Medications ?Medication ?Instructions ?Recorded ?Confirmed clopidogrel 75 mg tablet (Plavix) 75 mg PO DAILY@0800 10/23/19 08/13/24 isosorbide mononitrate 30 mg 30 mg PO DAILY@0800 10/2308/13/24 tablet,extended release 24 hr omeprazole 40 mg capsule,delayed 40 mg PO DAILY PRN He artburn 10/23/19 08/13/24 release rosuvastatin 40 mg tablet 40 mg PO DAILY@17 02/25/23 1 10/13/23 acetaminophen 500 mg tablet 500 mg PO Q6H PRN Pain 07/1808/13/24 cilostazol 100 mg tablet 100 mg PO BID@08,20 04/04/23 08/13/24 levothyroxine 50 mcg tablet 50 mcg PO DAILY@ 3 08/13/24 nitroglycerin 0.4 mg sublingual 0.4 mg sublingual Q5M PRN Chest 04/04/23 08/13/24 tablet (Nitrostat) Pain omega-3 fatty acids 1,000 mg 1,000 mg PO DAILY@03/2608/13/24 capsule Previous Rx's ?Medication ?Instructions ?Recorded cam boot to left #1 ea 04/12/23 ASO to left #1 ea 05/02/23 Rollator Walker #1 ea 05/25/23 magnesium L-lactate 84 mg 84 mg PO BID #60 tabs tablet,extended release (Magtab) albuterol sulfate 90 mcg/actuation 2 puff inhalation Q ID PRN 10/12/23 aerosol inhaler Shortness Of Breath #8.5 gra ms amlodipine 10 mg tablet 10 mg PO DAILY #90 tabs 09/26 04/18 fluticasone propionate 45 2 inh inhalation Q12H #12 gr ams 10/12/23 mcg-salmeterol 21 mcg/actuation HFA inhaler (Advair HFA) cholestyramine-aspartame 4 gram 4 g PO BID #201.6 gram s 10/14/23 oral powder (Cholestyramine Light) doxycycline monohydrate 100 mg 100 mg PO BID 10 days # 20 caps 05/28/24 capsule meloxicam 15 mg tablet 15 mg PO DAILY #30 tabs 07/27 05/19 metoprolol tartrate 50 mg tablet 50 mg PO Q12H #180 ta bs 10/26/24 doxycycline hyclate 100 mg capsule 100 mg PO BID 7 day s #14 caps 11/23/24 prednisone 20 mg tablet 60 mg (3 x 20 mg) PO DAILY 5 days 11/23/24 #15 tabs Allergies Allergy/AdvReac Type Severity Reaction Status Date / Time diphenhydramine (From Allergy Intermediate ALGY-Hives Verified 08/13/24 14:44 Benadryl) sulfabenzamide Allergy Intermediate swelling Verified 08/13/24 14:44 Review of Systems 2 Narrative: Constitutional symptoms: Negative except as documented in HPI. Skin symptoms: Negative except as documented in HPI. Eye symptoms: Negative except as documented in HPI. ENMT symptoms: Negative except as documented in HPI. Respiratory symptoms: Negative except as documented in HPI. Cardiovascular symptoms: Negative except as documented in HPI. Gastrointestinal symptoms: Negative except as documented in HPI. Genitourinary symptoms: Negative except as documented in HPI. Musculoskeletal symptoms: Negative except as documented in HPI. Neurologic symptoms: Negative except as documented in HPI. Psychiatric symptoms: Negative except as documented in HPI. Endocrine symptoms: Negative except as documented in HPI. PFSH ED 2 PFSH: Medical History Peripheral arterial disease Benign essential HTN Viral pneumonia Influenza Hypoxia Acute bronchitis Acute on chronic respiratory failure with hypoxia and hypercapnia Acute exacerbation of chronic obstructive pulmonary disease Grade III diastolic dysfunction MURILLO (dyspnea on exertion) Atherosclerosis of coronary artery Hypertension Adult hypothyroidism Hyperlipemia Dyspnea on exertion Malaise and fatigue Chronic obstructive asthma with exacerbation Emphysema/COPD GERD (gastroesophageal reflux disease) Back pain Palpitations Hypothyroidism Insomnia Park's palsy Hx of hyperlipidemia Anxiety Hx of breast cancer CAD (coronary artery disease) History of hypertension PAD (peripheral artery disease) Syncope Bilateral carotid artery stenosis without cerebral infarction Surgical History H/O tubal ligation History of cholecystectomy Status post carotid endarterectomy Family History Mother Lung disease Family/Other Cancer Grandmother CAD (coronary artery disease) Stroke Father Bleeding disorder Denies family history of Diabetes Clotting disorder Dementia Chronic kidney disease (CKD) Suicide Anesthesia complication Social History Smoking and tobacco/nicotine status: current every day tobacco/nicotine user (12 cigarettes per day) cigarettes Packs smoked per day: 1 Years cigarettes smoked: 31 [ Other cigarette details: Started at age 22] Alcohol intake: never Substance/Drug Use: never Physical Exam 2 Narrative: EXAM NARRATIVE: General: Alert, moderate distress. Skin: Warm, dry. Head: Normocephalic, atraumatic. Neck: Supple, trachea midline. Eye: Extraocular movements are intact. Ears, nose, mouth and throat: Oral mucosa moist. Cardiovascular: Regular rate and rhythm, Normal peripheral perfusion. Respiratory: coarse, scattered wheeze, moderate increased wob. tachypnea, prolonged expiratory phase. breath sounds are equal, Symmetrical chest wall expansion. Gastrointestinal: Soft, Nontender, Non distended, Normal bowel sounds. Musculoskeletal: Normal ROM, no deformity. Neurological: Alert and oriented to person, place, time, and situation, No focal neurological deficit observed. Psychiatric: Cooperative, appropriate mood & affect. Course 2 Vital Signs: Vital signs: Vital Signs Temperature 97.9 F 11/23/24 02:25 Pulse Rate 65 11/23/24 03:28 Respiratory Rate 22 H 11/23/24 03:28 Blood Pressure 169/102 11/23/24 02:25 Pulse Oximetry 97 11/23/24 03:28 Oxygen Delivery Me thod Nasal Cannula 11/23/24 03:28 Oxygen Flow Rate 5 11/23/24 03:28 MDM - SOB/Dyspnea Medical Decision Making Differential diagnosis for patient with shortness of breath includes but is not limited to and based on the above HPI, review of systems and physical exam: Pneumonia. Bronchitis. Asthma or COPD with acute exacerbation. Acute coronary syndrome / MT. Pulmonary embolism. Anxiety. Congestive heart failure. Viral infections including influenza and Covid-19. Atrial fibrillation. Anxiety. Pleural effusion. Pneumothorax. Orders placed to evaluate differential diagnosis based on the above differential, HPI and physical exam EKG: Time 3:07 AM. Rate 72. Normal sinus rhythm, No ST-T changes, no ectopy, normal OH & QRS intervals, This was reviewed and interpreted by myself the ER physician at 3:11 AM. Chest x-ray: Concern for right basilar pneumonia. This was reviewed and interpreted by myself the emergency room physician. I also reviewed the radiology report. Lab Review: Laboratory results were reviewed and interpreted by myself the emergency room physician. No leukocytosis. No anemia. No renal failure. Flu COVID and RSV are negative. Initial troponin is slightly elevated over baseline at 31. Repeat is almost 42 with a delta of 11. I reviewed the patient's medical record. Reexamination: Patient still has some wheeze on exam. O2 sats have improved some at rest on her home 5 L. No increased work of breathing at rest. She does tell me she had some chest pain earlier today. Her troponin is slightly elevated and her delta is 10. Given that she still symptomatic and the elevation in troponin she will be admitted. Consultation: I spoke with Dr. Yap who is on-call for the hospitalist service who agrees to admission Assessment and plan: COPD with acute exacerbation Pneumonia Chronic hypoxemic respiratory failure Tobacco dependence Chest pain Elevated troponin ?Total of 3 updrafts this evening. 2 in the ambulance. IV Solu-Medrol. IV doxycycline. -I discussed the patient with the hospitalist on-call who is admitting the patient. - Discussed findings and plan with patient. Answered any questions. - All laboratory values were reviewed and interpreted personally by myself, the ER physician - All imaging was reviewed and interpreted personally by myself, the ER physician. - Evaluation and treatment of this problem were appropriate in the emergency setting Critical care -I spent a total of >35 minutes of critical care time managing the patient, independent of any other practitioner. -The time involved in the performance of separately reportable procedures was not counted towards critical care time. Lab Data 11/23/24 03:00 11/23/24 03:00 Labs/Radiology: Radiology Impressions Chest X-Ray 11/23/24 02:28 IMPRESSION: New right basilar atelectasis or pneumonia. Correlate clinically. Laboratory Results WBC 10.22 10^3/uL (3.29-11.43) 11/23/24 03:00 RBC 5.21 10^6/uL (3.85-5.65) 11/23/24 03:00 Hgb 13.20 g/dL (11.27-16.99) 11/23/24 03:00 Hct 41.5 % (36-47) 11/23/24 03:00 MCV 79.7 fl (85-98) L 11/23/24 03:00 MCH 25.3 pg (27-33) L 11/23/24 03:00 MCHC 31.8 g/dL (30-55) 11/23/24 03:00 RDW 15.5 % (12.1-15.1) H 11/23/24 03:00 Plt Count 318 10^3/cmm (157-399) 11/23/24 03:00 MPV 9.3 fL (7.4-10.4) 11/23/24 03:00 Neut % (Auto) 76.9 % 11/23/24 03:00 Lymph % (Auto) 14.9 % 11/23/24 03:00 [place] % (Auto) 5.3 % 11/23/24 03:00 Eos % (Auto) 2.1 % 11/23/24 03:00 Baso % (Auto) 0.5 % 11/23/24 03:00 Neut # (Auto) 7.87 10^3/uL (1.8-7.7) H 11/23/24 03:00 Lymph # (Auto) 1.5 10^3/uL (0.8-4.8) 11/23/24 03:00 [place] # (Auto) 0.5 10^3/uL (0.2-0.9) 11/23/24 03:00 Eos # (Auto) 0.2 10^3/uL (0.0-0.8) 11/23/24 03:00 Baso # (Auto) 0.1 10^3/uL (0.0-0.1) 11/23/24 03:00 Nucleated RBC % (auto) 0 % 11/23/24 03:00 Nucleated RBCs # 0.0 /100WBC 11/23/24 03:00 Specimen Type Arterial 11/23/24 02:55 Sample Site Radial, left 11/23/24 02:55 ABG pH 7.38 (7.35-7.45) 11/23/24 02:55 ABG pCO2 47.4 mmHg (35-45) H 11/23/24 02:55 ABG pO2 56.8 mmHg (80.0-100.0) L 11/23/24 02:55 ABG HCO3 28.2 mmol/L (22-26) H 11/23/24 02:55 ABG O2 Saturation 90.7 11/23/24 02:55 ABG Base Excess 2.4 mmol/L (-2.0-2.0) H 11/23/24 02:55 Virgilio Test Pos 11/23/24 02:55 A-a O2 Gradient 4.5 mmHg (5-10) L 11/23/24 02:55 Hematocrit 41.1 % (37-47) 11/23/24 02:55 Hgb O2 Saturation 87.6 % (95-100) L 11/23/24 02:55 Carboxyhemoglobin 2.5 %THgb (0.4-20.1) 11/23/24 02:55 Methemoglobin 1.0 % (0.4-1.5) 11/23/24 02:55 Total Hemoglobin 13.4 g/dL (12-16) 11/23/24 02:55 Sodium 141.0 mmol/L (131-143) 11/23/24 02:55 Potassium 3.8 mmol/L (3.5-5.0) 11/23/24 02:55 Glucose 115.0 mg/dL (70-115) 11/23/24 02:55 Ionized Calcium 1.2 mmol/L (1.1-1.4) 11/23/24 02:55 O2 Delivery Device Nc 11/23/24 02:55 O2 Liters/Min 5.0 % 11/23/24 02:55 Vpk Teacher ID gerca 11/23/24 02:55 Sodium 139 mmol/L (136-145) 11/23/24 03:00 Potassium 4.2 mmol/L (3.5-5.1) 11/23/24 03:00 Chloride 102 mmol/L (98-107) 11/23/24 03:00 Carbon Dioxide 27 mmol/L (22-29) 11/23/24 03:00 Anion Gap 14.2 (5-19) 11/23/24 03:00 BUN 11 mg/dL (8-23) 11/23/24 03:00 Creatinine 0.7 mg/dL (0.5-0.9) 11/23/24 03:00 GFR Calculation 82.7 mL/min (90-130) L 11/23/24 03:00 Glucose 111 mg/dL (65-115) 11/23/24 03:00 Calculated Osmolality 288 mOsm/kg (285-295) 11/23/24 03:00 Lactic Acid 1.3 mmol/L (0.5-2.2) 11/23/24 03:00 Calcium 9.5 mg/dL (8.5-10.5) 11/23/24 03:00 Total Bilirubin 0.2 mg/dL (0.15-1.2) 11/23/24 03:00 AST 19 U/L (0-32) 11/23/24 03:00 ALT 14 U/L (0-33) 11/23/24 03:00 Alkaline Phosphatase 94 U/L (35-105) 11/23/24 03:00 Troponin T Baseline 31 ng/L (0-10) H 11/23/24 03:00 Troponin T 120 Minute 41.60 ng/L (0-10) H 11/23/24 04:13 Delta Troponin T 10.60 ABS# (0-10) H* 11/23/24 04:13 C-Reactive Protein 3.0 mg/L (0.0-4.9) 11/23/24 03:00 NT-Pro-B Natriuret Pep 185 pg/mL (0-125) H 11/23/24 03:00 Total Protein 7.2 g/dL (6.6-8.7) 11/23/24 03:00 Albumin 4.4 g/dL (3.5-5.2) 11/23/24 03:00 Globulin 2.8 g/dL (1.3-4.6) 11/23/24 03:00 Influenza A (PCR) Negative (Negative) 11/23/24 03:14 Influenza Type B (PCR) Negative (Negative) 11/23/24 03:14 RSV (PCR) Negative (Negative) 11/23/24 03:14 SARS-CoV-2 (PCR) Negative (Negative) 11/23/24 03:14 All radiology interpretation(s) finalized by discharge Discharge Plan Discharge Patient Disposition: Placed in Observation Clinical Impression: Acute exacerbation of chronic obstructive airways disease, Elevated troponin, Coronary artery disease, Pneumonia Discharge Diet: Usual diet Discharge Activity: Increase activity as tolerated Coding Level of Care Code ED Cattle Inspector for Tevin Gonzalez
[2024-11-23 03:03] LABS: ABG PCO2 47.4 mmHg (35-45); ABG PH Result 7.38 (7.35-7.45); Alveolar-Arterial Oxygen Gradi 4.5 mmHg (5-10); Arterial Blood Gas Hematocrit 41.1 % (37-47); Base Excess ABG 2.4 mmol/L (-2.0-2.0); Blood Gas Allen Test Pos; Blood Gas Operator Identificat gerca; Blood Gas Sample Site Radial, left; Blood Gas Sample Type Arterial; Carboxyhemoglobin 2.5 %THgb (0.4-20.1); HCO3 ABG 28.2 mmol/L (22-26); HGB O2 Sat 87.6 % (95-100); Ionized Calcium Level - ABG 1.2 mmol/L (1.1-1.4); Oxygen Device NC; Oxygen Saturation ABG 90.7; PO2 ABG 56.8 mmHg (80.0-100.0); Potassium Level - ABG 3.8 mmol/L (3.5-5.0); Total Hemoglobin 13.4 g/dL (12-16)
[2024-11-23] MEDS: methylPREDNISolone sod succ 125 mg/2 mL INJ IVP (03:07)
--- NOTE | 2024-11-23 03:07 | ECG_ITS ---
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 Measurements Intervals [place] Rate: 72 P: 65 SD: 142 QRS: 71 QRSD: 71 T: 76 QT: 371 QTc: 406 Interpretive Statements SINUS RHYTHM Compared to ECG 10/06/2023 16:19:21 ST (T wave) deviation no longer present Electronically Signed On 11-24-2024 07:46:15 CONTRACT SHELTERED WORKSHOP SUPERVISOR by Marc Brewer M.D. [id number] [id number]
[2024-11-23 03:10] LABS: Basophils # 0.1 10^3/uL (0.0-0.1); Basophils % 0.5 %; Eosinophils # 0.2 10^3/uL (0.0-0.8); Eosinophils % 2.1 %; Hematocrit 41.5 % (36-47); Lymphocytes # 1.5 10^3/uL (0.8-4.8); Lymphocytes % 14.9 %; Mean Corpuscular HGB Conc 31.8 g/dL (30-55); Mean Corpuscular Hemoglobin 25.3 pg (27-33); Mean Corpuscular Volume 79.7 fl (85-98); Mean Platelet Volume 9.3 fL (7.4-10.4); Monocytes # 0.5 10^3/uL (0.2-0.9); Monocytes % 5.3 %; Neutrophils # 7.87 10^3/uL (1.8-7.7); Neutrophils % 76.9 %; Nucleated Red Blood Cells % 0 %; Platelet Count 318 10^3/cmm (157-399); Red Blood Count 5.21 10^6/uL (3.85-5.65); Red Cell Distribution Width 15.5 % (12.1-15.1); White Blood Count 10.22 10^3/uL (3.29-11.43)
[2024-11-23] MEDS: albuterol 2.5 mg/3 mL Neb INHALATION (03:21)
[2024-11-23 03:24] LABS: Lactic Sepsis W/Reflex 1.3 mmol/L (0.5-2.2)
[2024-11-23 03:38] LABS: Alanine Aminotransferase 14 U/L (0-33); Albumin Level 4.4 g/dL (3.5-5.2); Alkaline Phosphatase 94 U/L (35-105); Anion Gap 14.2 (5-19); Aspartate Amino Transferase 19 U/L (0-32); Blood Urea Nitrogen 11 mg/dL (8-23); Calcium 9.5 mg/dL (8.5-10.5); Carbon Dioxide 27 mmol/L (22-29); Chloride 102 mmol/L (98-107); Creatinine Clr Calc Pharmacy 55.8651; Globulin 2.8 g/dL (1.3-4.6); Glomerular Filtration Rate 82.7 mL/min (90-130); Glucose 111 mg/dL (65-115); Osmolality Calculated 288 mOsm/kg (285-295); Potassium 4.2 mmol/L (3.5-5.1); Sodium 139 mmol/L (136-145); Total Bilirubin 0.2 mg/dL (0.15-1.2); Total Protein 7.2 g/dL (6.6-8.7); Troponin(5th) Baseline 31 ng/L (0-10)
[2024-11-23 03:45] LABS: NT Pro B Type Natriuretic Pept 185 pg/mL (0-125)
[2024-11-23 03:56] LABS: Influenza A NEGATIVE (Negative); Influenza B NEGATIVE (Negative); Respiratory Syncytial Virus Ce NEGATIVE (Negative); SARS-CoV-2 PCR NEGATIVE (Negative)
[2024-11-23] MEDS: doxycycline 100 MG in sodium chloride 0.9% (plus) 100 ML IV (04:09)
[2024-11-23] MEDS: ondansetron 2 mg/ML SDV 2 mL 4 MG IVP (04:32)
[2024-11-23] MEDS: acetaminophen 1,000 MG/100 ML PIGGYBACK 400 MG IV (04:32)
--- NOTE | 2024-11-23 04:55 | PM.HP ---
Providers/Chief Complaint Primary Care Provider: Katie Dobbs Chief Complaint: SOB History of Present Illness Cinthia Palacios is a 69 year old female chronic hypoxia 5 L baseline, diastolic CHF, active smoker, presented with chief complaint of worsening of shortness of breath. Patient is stating that she has been feeling weak lethargic and fatigued for the last 2 to 3 days, she has not noticed any fever nausea vomiting diarrhea but she noticed chest discomfort which she is describing as sharp pain shooting towards her substernal area which would last a few seconds, it is associate with shortness of breath. Workup in the ER revealed right-sided pneumonia and significant delta troponin she has been started on ACS protocol. Oxygen requirement still 5 L active chest pain. Review of Systems Const: Denies: fever(s) Eyes: Denies: change in vision ENMT: Denies: throat pain Card: Reports: chest pain Resp: Reports: dyspnea Medications/Allergies Home Medications ?Medication ?Instructions ?Recorded ?Confirmed ?Last Taken ?Type clopidogrel 75 mg tablet (Plavix) 75 mg PO DAILY@79910/23/19 08/13/24 10/04/23 History isosorbide mononitrate 30 mg 30 mg PO DAILY@79910/23/19 08/13/24 10/04/23 History tablet,extended release 24 hr omeprazole 40 mg capsule,delayed 40 mg PO DAILY PRN Heartburn 10/23/19 08/13/24 01/11/22 05:45 History release rosuvastatin 40 mg tablet 40 mg PO DAILY@02/25/23 08/13/24 10/04/23 History acetaminophen 500 mg tablet 500 mg PO Q6H PRN Pain 04/04/23 08/13/24 Unknown History cilostazol 100 mg tablet 100 mg PO BID@04/04/23 08/13/24 10/04/23 History levothyroxine 50 mcg tablet 50 mcg PO DAILY@04/04/23 08/13/24 10/04/23 History nitroglycerin 0.4 mg sublingual 0.4 mg sublingual Q5M PRN Chest 04/04/23 08/13/24 Unknown History tablet (Nitrostat) Pain omega-3 fatty acids 1,000 mg 1,000 mg PO DAILY@04/04/23 08/13/24 10/04/23 History capsule cam boot to left #1 ea 04/12/23 08/13/24 Unknown Rx ASO to left #1 ea 05/02/23 08/13/24 Unknown Rx Rollator Walker #1 ea 05/25/23 08/13/24 Unknown Rx magnesium L-lactate 84 mg 84 mg PO BID #60 tabs 07/11/23 08/13/24 2 Weeks Ago Rx tablet,extended release (Magtab) ~09/21/23 albuterol sulfate 90 mcg/actuation 2 puff inhalation QID PRN 10/12/23 08/13/24 Unknown Rx aerosol inhaler Shortness Of Breath #8.5 grams amlodipine 10 mg tablet 10 mg PO DAILY #90 tabs 10/12/23 08/13/24 Unknown Rx fluticasone propionate 45 2 inh inhalation Q12H #12 grams 10/12/23 08/13/24 Unknown Rx mcg-salmeterol 21 mcg/actuation HFA inhaler (Advair HFA) cholestyramine-aspartame 4 gram 4 g PO BID #201.6 grams 10/14/23 08/13/24 Unknown Rx oral powder (Cholestyramine Light) doxycycline monohydrate 100 mg 100 mg PO BID 10 days #20 caps 05/28/24 08/13/24 Unknown Rx capsule meloxicam 15 mg tablet 15 mg PO DAILY #30 tabs 08/13/24 08/13/24 Unknown Rx metoprolol tartrate 50 mg tablet 50 mg PO Q12H #180 tabs 10/26/24 Unknown Rx doxycycline hyclate 100 mg capsule 100 mg PO BID 7 days #14 caps 11/23/24 Unknown Rx prednisone 20 mg tablet 60 mg (3 x 20 mg) PO DAILY 5 days 11/23/24 Unknown Rx #15 tabs Allergies Allergy/AdvReac Type Severity Reaction Status Date / Time diphenhydramine (From Allergy Intermediate ALGY-Hives Verified 08/13/24 14:44 Benadryl) sulfabenzamide Allergy Intermediate swelling Verified 08/13/24 14:44 PFSH Acute PFSH: Medical History Peripheral arterial disease Benign essential HTN Viral pneumonia Influenza Hypoxia Acute bronchitis Acute on chronic respiratory failure with hypoxia and hypercapnia Acute exacerbation of chronic obstructive pulmonary disease Grade III diastolic dysfunction MURILLO (dyspnea on exertion) Atherosclerosis of coronary artery Hypertension Adult hypothyroidism Hyperlipemia Dyspnea on exertion Malaise and fatigue Chronic obstructive asthma with exacerbation Emphysema/COPD GERD (gastroesophageal reflux disease) Back pain Palpitations Hypothyroidism Insomnia Park's palsy Hx of hyperlipidemia Anxiety Hx of breast cancer CAD (coronary artery disease) History of hypertension PAD (peripheral artery disease) Syncope Bilateral carotid artery stenosis without cerebral infarction Surgical History H/O tubal ligation History of cholecystectomy Status post carotid endarterectomy Family History Mother Lung disease Family/Other Cancer Grandmother CAD (coronary artery disease) Stroke Father Bleeding disorder Denies family history of Diabetes Clotting disorder Dementia Chronic kidney disease (CKD) Suicide Anesthesia complication Social History Smoking and tobacco/nicotine status: current every day tobacco/nicotine user (12 cigarettes per day) cigarettes Packs smoked per day: 1 Years cigarettes smoked: 31 [ Other cigarette details: Started at age 22] Alcohol intake: never Substance/Drug Use: never Vitals/I&O/Wt Last Vital Signs Temp 97.9 F 11/23/24 02:25 Pulse 65 11/23/24 03:28 Resp 22 H 11/23/24 03:28 BP 169/102 11/23/24 02:25 Pulse Ox 97 11/23/24 03:28 O2 Del Method Nasal Cannula 11/23/24 03:28 O2 Flow Rate 5 11/23/24 03:28 11/22/24 11/22/24 11/23/24 14:59 22:59 06:59 Intake Total 100 / 100 Balance 100 / 100 Weight last 48 hrs Weight 63.503 kg Physical Exam Narrative: Patient awake and alert No active chest pain Bilateral breath sounds with rhonchi GCS 15 Currently on 5 L Nonfocal neuroexam Pleasant cooperative AOx4 Euvolemic Data 11/23/24 03:00 11/23/24 03:00 Micro: Microbiology 11/23/24 03:05 Blood Culture - Preliminary Blood SPECIMEN COLLECTED 11/23/24 03:00 Blood Culture - Preliminary Blood SPECIMEN COLLECTED A&P Assessment and plan (1) Coronary artery disease: (2) Elevated troponin: (3) Chronic respiratory failure with hypoxia and hypercapnia: (4) Pneumonia: Plan Non-STEMI: Start ACS protocol EKG without ischemic or infarctive changes Preserved EF as per previous echo Requested echo Right-sided pneumonia Currently on 5 L No exacerbation from baseline Start antibiotics Active smoker: Smokes 1 pack which she finishes in a month History of right carotid endarterectomy Full code Cardiac diet DVT prophylaxis covered with therapeutic Lovenox PDMP PDMP Reviewed: Not Reviewed Attestations Medical Necessity Statement*: Anticipating more than 2 midnights for management of pneumonia and non-STEMI Diagnoses Coronary artery disease I25.10 Elevated troponin R79.89 Chronic respiratory failure with hypoxia and hypercapnia J96.11; J96.12 Pneumonia J18.9
--- NOTE | 2024-11-23 04:56 | ECG_ITS ---
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 Measurements Intervals [place] Rate: 68 P: 61 UT: 139 QRS: 74 QRSD: 75 T: 81 QT: 403 QTc: 429 Interpretive Statements SINUS RHYTHM SEPTAL MYOCARDIAL INFARCTION , OF INDETERMINATE AGE [40+ ms Q WAVE IN V1/V2] Compared to ECG 11/23/2024 03:07:17 Myocardial infarct finding now present Electronically Signed On 11-24-2024 08:18:33 STORAGE RECEIPT POSTER by Marc Brewer M.D. [id number] [id number]
--- NOTE | 2024-11-23 04:59 | USCV_ITS ---
Cinthia Palacios Age: 69 Gender: F : 1955 Exam Date: 11/23/2024 09:23 Ordering Phys: Shantel Yap MD Technologist: Eliezer Gómez [place] [facility] [place] nstemi BP: 152 / 86 HR: 79 Rhythm: Sinus Technical Quality: Adequate MEASUREMENTS (Male / Female) Normal Values 2D ECHO LV Diastolic Diameter PLAX 6.1 cm 4.2 - 5.9 / 3.9 - 5.3 cm IVS Diastolic Thickness 0.9 cm 0.6 - 1.0 / 0.6 - 0.9 cm IVS Systolic Thickness 1.2 cm LVPW Diastolic Thickness 1.1 cm 0.6 - 1.0 / 0.6 - 0.9 cm LVPW Systolic Thickness 1.4 cm LVOT Diameter 1.8 cm LV Ejection Fraction 2D Teich 67.3 % LV Ejection Fraction MOD 4C 77.1 % LV Ejection Fraction MOD 2C 78.2 % LV Ejection Fraction 2C AL 78.2 % LA Diameter 4.6 cm RA Systolic Volume 4C AL 21.3 ml RA Systolic Volume 4C MOD 21.1 ml LA Sys Volume AL 24.5 cm cubed LA Sys Volume Index AL 14.8 cm cubed/m squared Aorta at Sinotubular Diameter 1.6 cm IVC Diameter 1.5 cm M-MODE LA Ao Ratio MM 1.1 AV Cusp Separation MM 1.3 cm DOPPLER AV Peak Velocity 195.0 cm/s LVOT Peak Velocity 134.0 cm/s AV Area Cont Eq vti 1.6 cm squared AV Area Cont Eq pk 1.7 cm squared MV Peak Velocity 147.0 cm/s MV Area PHT 3.9 cm squared Mitral E to A Ratio 1.4 TR Peak Velocity 308.0 cm/s TR Peak Gradient 37.9 mmHg TR Mean Velocity 249.0 cm/s TR Mean Gradient 26.2 mmHg TR Velocity Time Integral 84.1 cm PV Peak Velocity 101.0 cm/s RV Ejection Time 0.4 s FINDINGS Left Ventricle Normal left ventricular size, systolic function and wall thickness, with no regional wall motion abnormalities. Normal left ventricular size and systolic function, EF 67%. Right Ventricle Normal right ventricular size and systolic function. Right Atrium Normal right atrial size. Left Atrium Mildly increased left atrial size. Mitral Valve Mildly thickened mitral valve. Mild mitral valve regurgitation. Aortic Valve Thickened aortic valve. No aortic valve stenosis. Tricuspid Valve Structurally normal tricuspid valve. Trace tricuspid valve regurgitation. Pulmonic Valve Pulmonic valve not well visualized. Trace pulmonary valve regurgitation. Estimated TVPG 33 MMhG. Pericardium No pericardial effusion. Aorta Normal size aortic root and proximal ascending aorta. IVC Normal IVC dimension with >50% respiratory change of the inferior vena cava. CONCLUSIONS Normal left ventricular size and function with an estimated ejection fraction of 65 %. Grade I diastolic dysfunction Mild MR, mildly dilated LA. Normal RV and normal RV systolic function. Mildly elevated RV and pulmonary pressures, estimated PA pressure 35 to 40 mmHg. Joshua Mancera MD (Electronically Signed) Final Date: 23 November 2024 13:54 S
[2024-11-23 05:13] LABS: D Dimer 0.87 ug/mLFEU (0-0.59)
[2024-11-23 05:25] LABS: Procalcitonin 0.03 ng/mL (0-0.5)
[2024-11-23] MEDS: enoxaparin 40 mg/0.4 mL Syringe SUBCUT (05:38)
[2024-11-23] MEDS: cefTRIAXone 1,000 mg SDV 1000 MG IVP (05:38)
[2024-11-23] MEDS: clopidogrel 300 mg Tablet PO (06:19)
[2024-11-23] MEDS: ENOXAPARIN SUBCUT ×2 (06:19→16:42)
[2024-11-23] MEDS: aspirin 325 mg EC Tablet PO (06:19)
--- NOTE | 2024-11-23 06:38 | PC.NURSE ---
This nurse administered the previously ordered 40mg of Lovenox. After med was administered, Dr Yap put in another order for 60mg of Lovenox. This nurse contacted Dr Yap regarding additional order-- order was given to administer additional 20mg to make total of Lovenox administered 60.
--- NOTE | 2024-11-23 08:28 | ECG_ITS ---
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 Measurements Intervals [place] Rate: 67 P: 71 SD: 139 QRS: 91 QRSD: 66 T: 86 QT: 397 QTc: 421 Interpretive Statements SINUS RHYTHM BORDERLINE RIGHT AXIS DEVIATION [QRS AXIS > 90] SEPTAL MYOCARDIAL INFARCTION , OF INDETERMINATE AGE [40+ ms Q WAVE IN V1/V2] Compared to ECG 11/23/2024 04:56:41 No significant changes Electronically Signed On 11-24-2024 08:18:15 DIGITAL CONTENT MARKETING MANAGER by Marc Brewer M.D. [email or web address]
[2024-11-23] MEDS: doxycycline 100 mg Tablet PO ×2 (09:00→16:42)
[2024-11-23] MEDS: isosorbide mononitrate ER 30 mg Tablet PO (09:00)
[2024-11-23] MEDS: aspirin 81 mg EC Tablet PO (09:00)
[2024-11-23] MEDS: metoprolol tartrate 50 mg Tablet PO ×2 (09:00→16:42)
[2024-11-23] MEDS: levothyroxine 50 mcg Tablet PO (09:00)
[2024-11-23] MEDS: morphine IR 15 mg Tablet PO (09:16)
--- NOTE | 2024-11-23 10:02 | ECG_ITS ---
[facility] Test Date: 2024-11-23 Pat Name: Cinthia Palacios Department: Room: 251 Gender: Female Analyst Sales: : [id number] Requested By: Diane Shi Order Number: [id number] Shana MD: Marc Brewer M.D. Measurements Intervals [place] Rate: 75 P: 70 VA: 141 QRS: 81 QRSD: 74 T: 86 QT: 394 QTc: 442 Interpretive Statements SINUS RHYTHM WITH SINUS ARRHYTHMIA SEPTAL MYOCARDIAL INFARCTION , OF INDETERMINATE AGE [40+ ms Q WAVE IN V1/V2] Compared to ECG 11/23/2024 08:08:55 No significant changes Electronically Signed On 11-24-2024 08:17:37 MERCURY PURIFIER by Marc Brewer M.D. [email or web address]
[2024-11-23 10:21] LABS: Troponin 5 6HR 47.88 ng/L (0-10)
[2024-11-23 10:35] LABS: Troponin 5 6HR Delta 16.88 ng/L (0-12)
[2024-11-23] MEDS: ipratropium-albuterol 3 mL Neb INHALATION ×3 (10:42→20:19)
--- NOTE | 2024-11-23 12:17 | PM.CONSULT ---
Providers/Reason For Consult Consulting Physician/Specialty*: Medicine/hospitalist Reason for Consult*: NSTEMI Requesting Physician: Dr. Shi Attending Physician: Diane Shi MD Primary Care Provider: Katie Dobbs History of Present Illness History of Present Illness Cinthia Palacios is a 69 year old female Presented to the ER with shortness of air and very atypical chest pain patient has a history of chronic lung disease secondary to chronic smoking, diastolic heart failure and previous cardiac ischemic workup, including stress MIBI and angiogram, negative. Patient was manage in the ER accordingly for possible lower respiratory tract infection and possible NSTEMI as her troponin cardiac enzymes were minimally elevated. The EKG did not show any acute ST changes suggestive of acute ischemia. Clinically no heart failure symptoms. Currently patient is not having any chest pain. However she does complain of bilateral lower rib cage pain. Systemic review is unremarkable. Review of Systems Narrative: Detailed 10 point systemic review unremarkable except for as mentioned above in the history of present illness. Medications/Allergies Home Medications ?Medication ?Instructions ?Recorded ?Confirmed ?Last Taken ?Type clopidogrel 75 mg tablet (Plavix) 75 mg PO DAILY@0800 10/23/19 11/23/24 11/22/24 08:00 History omeprazole 40 mg capsule,delayed 40 mg PO DAILY PRN Heartburn 10/23/19 11/23/24 11/21/24 History release rosuvastatin 40 mg tablet 40 mg PO DAILY@17 02/25/23 11/23/24 11/21/24 17:00 History acetaminophen 500 mg tablet 500 mg PO Q6H PRN Pain 04/04/23 11/23/24 Unknown History levothyroxine 50 mcg tablet 50 mcg PO DAILY@04/04/23 11/23/24 11/22/24 08:00 History omega-3 fatty acids 1,000 mg 1,000 mg PO DAILY@04/04/23 11/23/24 11/22/24 08:00 History capsule cam boot to left #1 ea 04/12/23 11/23/24 Unknown Rx ASO to left #1 ea 05/02/23 11/23/24 Unknown Rx Rollator Walker #1 ea 05/25/23 11/23/24 Unknown Rx magnesium L-lactate 84 mg 84 mg PO BID #60 tabs 07/11/23 11/23/24 11/22/24 08:00 Rx tablet,extended release (Magtab) albuterol sulfate 90 mcg/actuation 2 puff inhalation QID PRN 10/12/23 11/23/24 11/22/24 Rx aerosol inhaler Shortness Of Breath #8.5 grams fluticasone propionate 45 2 inh inhalation Q12H #12 grams 10/12/23 11/23/24 Unknown Rx mcg-salmeterol 21 mcg/actuation HFA inhaler (Advair HFA) metoprolol tartrate 50 mg tablet 50 mg PO Q12H #180 tabs 10/26/24 11/23/24 11/22/24 08:00 Rx doxycycline hyclate 100 mg capsule 100 mg PO BID 7 days #14 caps 11/23/24 Unknown Rx prednisone 20 mg tablet 60 mg (3 x 20 mg) PO DAILY 5 days 11/23/24 Unknown Rx #15 tabs Allergies Allergy/AdvReac Type Severity Reaction Status Date / Time diphenhydramine (From Allergy Intermediate ALGY-Hives Verified 08/13/24 14:44 Benadryl) sulfabenzamide Allergy Intermediate swelling Verified 08/13/24 14:44 Current Medications Generic Name Dose Route Start Last Admin Trade Name Freq PRN Reason Stop Dose Admin Albuterol/Ipratropium 3 ml 11/23/24 04:56 11/23/24 10:42 Ipratropium-Albuterol 3 Ml Neb INHALATION 3 ml Q6H PRN Administration SHORTNESS OF BREATH Aspirin 81 mg 11/23/24 09:00 11/23/24 09:00 Aspirin 81 Mg Ec Tablet PO 81 mg DAILY MICA Administration Ceftriaxone Sodium 1,000 mg 11/23/24 05:00 11/23/24 05:38 Ceftriaxone 1,000 Mg Sdv IVP 1,000 mg Q24H MICA Administration Protocol Doxycycline Monohydrate 100 mg 11/23/24 09:00 11/23/24 09:00 Doxycycline 100 Mg Tablet PO 100 mg BID MICA Administration Protocol Enoxaparin Sodium 60 mg 11/23/24 05:47 11/23/24 06:19 Enoxaparin 60 Mg/0.4 Ml Syringe SUBCUT 60 mg Q12H MICA Administration Isosorbide Mononitrate 30 mg 11/23/24 09:00 11/23/24 09:00 Isosorbide Mononitrate Er 30 Mg Tablet PO 30 mg DAILY MICA Administration Levothyroxine Sodium 50 mcg 11/23/24 09:00 11/23/24 09:00 Levothyroxine 50 Mcg Tablet PO 50 mcg DAILY MICA Administration Metoprolol Tartrate 50 mg 11/23/24 09:00 11/23/24 09:00 Metoprolol Tartrate 50 Mg Tablet PO 50 mg BID MICA Administration Morphine Sulfate 15 mg 11/23/24 04:56 11/23/24 09:16 Morphine Ir 15 Mg Tablet PO 15 mg Q6H PRN Administration MODERATE PAIN PFSH Acute PFSH: Medical History Peripheral arterial disease Benign essential HTN Viral pneumonia Influenza Hypoxia Acute bronchitis Acute on chronic respiratory failure with hypoxia and hypercapnia Acute exacerbation of chronic obstructive pulmonary disease Grade III diastolic dysfunction MURILLO (dyspnea on exertion) Atherosclerosis of coronary artery Hypertension Adult hypothyroidism Hyperlipemia Dyspnea on exertion Malaise and fatigue Chronic obstructive asthma with exacerbation Emphysema/COPD GERD (gastroesophageal reflux disease) Back pain Palpitations Hypothyroidism Insomnia Park's palsy Hx of hyperlipidemia Anxiety Hx of breast cancer CAD (coronary artery disease) History of hypertension PAD (peripheral artery disease) Syncope Bilateral carotid artery stenosis without cerebral infarction Surgical History H/O tubal ligation History of cholecystectomy Status post carotid endarterectomy Family History Mother Lung disease Family/Other Cancer Grandmother CAD (coronary artery disease) Stroke Father Bleeding disorder Denies family history of Diabetes Clotting disorder Dementia Chronic kidney disease (CKD) Suicide Anesthesia complication Social History Smoking and tobacco/nicotine status: current every day tobacco/nicotine user (12 cigarettes per day) cigarettes Packs smoked per day: 1 Years cigarettes smoked: 31 [ Other cigarette details: Started at age 22] Alcohol intake: never Substance/Drug Use: never Vitals/I&O/Wt Last Vital Signs Temp 97.9 F 11/23/24 02:25 Pulse 68 11/23/24 10:43 Resp 18 11/23/24 10:43 BP 152/86 11/23/24 08:33 Pulse Ox 96 11/23/24 10:43 O2 Del Method Nasal Cannula 11/23/24 10:43 O2 Flow Rate 6 11/23/24 10:43 11/22/24 11/23/24 11/23/24 22:59 06:59 14:59 Intake Total 200 / 200 Balance 200 / 200 Weight last 48 hrs Weight 170 lb 6.4 oz Weight 140 lb Physical Exam Narrative: Patient laying comfortably. She is not in any respiratory distress Const: COMMON NORMALS: no acute distress, patient oriented x3, no limitations, alert and well nourished HENMT: OTHER: Unremarkable. Resp: OTHER: Good air entry at the bases. There is a minimal rales at right lower base and few scattered expiratory wheezes. Cardio: OTHER: Normal first and second heart sounds. No added sounds. GI: OTHER: Soft and nontender. Bowel sounds audible. Extremity: NARRATIVE EXTREMITY EXAM: There is no lower extremity edema. Skin warm and dry. Distal pulses 1+ palpable bilaterally. Neuro: COMMON NORMALS: patient oriented x3 SENSORIUM/ORIENTATION: Yes alert OTHER: Grossly intact. Skin: OTHER: Warm and dry. Data 11/23/24 03:00 11/23/24 03:00 Micro: Microbiology 11/23/24 03:05 Blood Culture - Preliminary Blood SPECIMEN COLLECTED 11/23/24 03:00 Blood Culture - Preliminary Blood SPECIMEN COLLECTED A&P Assessment and plan (1) Pneumonia: (2) Elevated troponin: Plan 69-year-old female patient with clinically very atypical chest pain, more so of bilateral lower rib cage pain, admitted with mild lower respiratory tract infection Minimal troponin elevated, possible NSTEMI. Clinically no heart failure symptoms Patient does have upper GI symptoms/GERD Recommendation: Agree with the current management plan. I added PPI for symptomatic treatment of GERD. Follow-up with a repeat troponin and may consider for cardiac cath depending on the result of repeat troponin Thanks for asking me to see this patient in consultation. PDMP PDMP Reviewed: Not Reviewed Coding Level of Care Code 50644 Diagnoses Pneumonia J18.9 Elevated troponin R79.89 Time Spent (min) 30
--- NOTE | 2024-11-23 13:25 | PM.MISC ---
Miscellaneous Note Note: Seen this morning. Patient having active chest pain in a bandlike pattern starting at her lower ribs and going towards the back bilaterally. Does a troponin at 6 hours 16 positive. EKG shows sinus rhythm Cardio consulted.
[2024-11-23] MEDS: benzonatate 100 mg Capsule PO (17:34)
[2024-11-23 17:53] LABS: Troponin T (5th) Once 40 ng/L (0-10)
--- OUTSIDE RECORDS SUMMARY | 2024-11-23 18:15 | XMS_ITS | Encounter Summary ---
Author Organization [facility] Address [address] [place] [address] Care Team Providers Care Mergers And Acquisitions Attorney Name Role Phone Unavailable Primary Care Provider Unavailabl e Encounter Details Date Type Department Care Team (Late st Contact Info) Description 09/06/2016 Lab Requisition [facility] General Laboratory Services [place] [address] [phone] Colin Gómez DO NO ADDRESS ON FILE Social History Tobacco Use Types Packs/Day Years Used Date Smoking Tobacco: Every Day Cigarettes 1 40 Comments Unknown Sex and Gender Information Value Date Recorded Sex Assigned at Not on file 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:52 AM MEDICAL APPOINTMENT SCHEDULER Gender Identity Not on file Sexual Orientation Not on file documented as of this encounter Plan of Treatment Not on file documented as of this encounter Procedures Procedure Name Priority Date/Time Associated Diagnosis Comments TSH Routine 09/06/2016 8:53 PM MEDICAL APPOINTMENT SCHEDULER documented in this encounter Results * TSH (09/06/2016 8:53 PM MEDICAL APPOINTMENT SCHEDULER) TSH 1.76 0.27 - 4.20 uIU/mL 09/06/2016 10:45 PM MEDICAL APPOINTMENT SCHEDULER [facility] Blood 09/06/2016 8:53 PM MEDICAL APPOINTMENT SCHEDULER 09/06/2016 9:41 PM MEDICAL APPOINTMENT SCHEDULER Colin Gómez DO CHEMISTRY ORDERABLES Final Resu lt [facility] CLIA # [id number] [address] [place] [address] [address] [place] [address] documented in this encounter Visit Diagnoses Not on filedocumented in this encounter
--- OUTSIDE RECORDS SUMMARY | 2024-11-23 18:15 | XMS_ITS | Encounter Summary ---
Author Organization [facility] Address [address] [place] [address] Care Team Providers Care Master Welder Name Role Phone Unavailable Primary Care Provider Unavailabl e Encounter Details Date Type Department Care Team (Late st Contact Info) Description 05/03/2016 Lab Requisition 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 Gender Identity Not on file Sexual Orientation Not on file documented as of this encounter Plan of Treatment Not on file documented as of this encounter Procedures Procedure Name Priority Date/Time Associated Diagnosis Comments DIFFERENTIAL, MANUAL Routine 05/03/2016 4:07 PM CDT CBC WITH DIFFERENTIAL Routine 05/03/2016 4:07 PM CDT TSH Routine 05/03/2016 4:07 PM CDT T4 FREE Routine 05/03/2016 4:07 PM CDT LIPID PANEL Routine 05/03/2016 4:07 PM CDT COMPREHENSIVE METABOLIC PANEL Routine 05/03/2016 4:07 PM CDT documented in this encounter Results * MANUAL DIFFERENTIAL (05/03/2016 4:07 PM CDT) SEGMENTED NEUTROPHILS 51 45 - 70 % 05/03/2016 11:54 PM CDT [facility] LYMPHOCYTES RELATIVE 40 20 - 45 % 05/03/2016 11:54 PM T [facility] MONOCYTES RELATIVE 8 2 - 8 % 05/03/2016 11:54 PM [facility] EOSINOPHILS RELATIVE 1 0 - 5 % 05/03/2016 11:54 PM T [facility] NEUTROPHILS ABSOLUTE COUNT 4.54 1.78 - 5.38 K/uL 05/03/2016 11:54 PM CDT [facility] LYMPHOCYTES ABSOLUTE 3.56 1.20 - 4.00 K/uL 05/03/2016 11:54 PM T [facility] MONOCYTES ABSOLUTE 0.71 0.30 - 0.82 K/uL 05/03/2016 11:54 PM [facility] EOSINOPHILS ABSOLUTE 0.09 0.04 - 0.54 K/uL 05/03/2016 11:54 PM [facility] TOTAL CELLS COUNTED IN DIFF 100 05/03/2016 11:54 PM [facility] PLATELET EST. Consistent with Count 05/03/2016 11:54 PM [facility] RBC MORPHOLOGY Normal 05/03/2016 11:54 PM [facility] Blood 05/03/2016 4:07 PM CDT 05/03/2016 8:23 PM CDT Hong Konger Joaquín Sotelo MD HEMATOLOGY ORDE RABLES [facility] Final Result [facility] CLIA # [id number] [address] [place] [address] * (ABNORMAL) TSH (05/03/2016 4:07 PM CDT) TSH 6.69(H) 0.27 - 4.20 uIU/mL 05/03/2016 10:58 PM T [facility] Blood 05/03/2016 4:07 PM CDT 05/03/2016 8:23 PM CDT Luther Sotelo MD CHEMISTRY ORDER DESI Final Result [facility] # [id number] [address] [place] [address] * (ABNORMAL) LIPID PANEL (05/03/2016 4:07 PM CDT) CHOLESTEROL 199 <200 mg/dL 05/03/2016 10:59 PM CDT [facility] TRIGLYCERIDE 88 <150 mg/dL 05/03/2016 10:59 PM CDT [facility] HDL 56 40 - 59 mg/dL 05/03/2016 10:59 PM CDT [facility] LDL CALCULATED 125(H) <100 mg/dL 05/03/2016 10:59 PM CDT [facility] NON-HDL CHOLESTEROL 143(H) <130 mg/dL 05/03/2016 10:59 PM CDT [facility] Blood 05/03/2016 4:07 PM CDT 05/03/2016 8:23 PM CDT Narrative [facility] - 05/03/2016 10:59 PM CDT TOTAL CHOLESTEROL mg/dL ??Desirable ? <200 ??Borderline high ?200-239 ??High ?>=240 TRIGLYCERIDES mg/dL ??Normal ?<150 ??Borderline high ?150-199 ??High ? 200-499 ??Very high ? >=500 HDL CHOLESTEROL mg/dL ??Low ?<40 ??Normal ?40-59 ??Desirable ? >=60 LDL CHOLESTEROL mg/dL ??Optimal ? <100 ??Low risk ? 100-129 ??Borderline high ?130-159 ??High ? 160-189 ??Very high ? >=190 NON HDL CHOLESTEROL mg/dL ??Optimal ? <130 ??Near Optimal ? 130-159 ??Borderline High ?160-189 ??High ? 190-219 ??Very high ? >=220 Based on AHA/NCEP Guidelines Luther Sotelo MD CHEMISTRY ORDER DESI Final Result Performing Organization Address [facility] Phone Number [facility] # [id number] [address] [place] [address] * T4 FREE (05/03/2016 4:07 PM CDT) [facility] T4 FREE 1.19 0.93 - 1.70 ng/dL 05/03/2016 10:59 PM CDT [facility] Blood 05/03/2016 4:07 PM CDT 05/03/2016 8:23 PM CDT Luther Sotelo MD CHEMISTRY ORDER DESI Final Result Performing Organization Address [facility] Phone Number [facility] # [id number] [address] [place] [address] * (ABNORMAL) COMPREHENSIVE METABOLIC PANEL (05/03/2016 4:07 PM CDT) [facility] SODIUM 140 136 - 145 mmol/L 05/03/2016 10:59 PM CDT [facility] POTASSIUM 4.1 3.5 - 5.1 mmol/L 05/03/2016 10:59 PM [facility] CHLORIDE 98 98 - 107 mmol/L 05/03/2016 10:59 PM [facility] CO2 25 22 - 29 mmol/L 05/03/2016 10:59 PM [facility] CALCIUM 9.8 8.8 - 10.2 mg/dL 05/03/2016 10:59 PM [facility] BUN 12 8 - 23 mg/dL 05/03/2016 10:59 PM [facility] CREATININE 0.72 0.51 - 0.95 mg/dL 05/03/2016 10:59 PM [facility] GLUCOSE 78 74 - 106 mg/dL 05/03/2016 10:59 PM [facility] TOTAL PROTEIN 7.7 6.6 - 8.7 g/dL 05/03/2016 10:59 PM [facility] ALBUMIN 4.5 3.5 - 5.2 g/dL 05/03/2016 10:59 PM [facility] BILIRUBIN TOTAL 0.2 0.0 - 1.2 mg/dL 05/03/2016 10:59 PM [facility] ALKALINE PHOSPHATASE 115(H) 35 - 104 U/L 05/03/2016 10:59 PM [facility] AST 25 10 - 35 U/L 05/03/2016 10:59 PM [facility] ALT 32 10 - 35 U/L 05/03/2016 10:59 PM [facility] GFR >60 >=60 mL/min/1.7 3 sq meter 05/03/2016 10:59 PM [facility] Comment: eGFR has not been validated for use in the elderly (> 70 years of age), women, patients with serious co-morbid conditions, or persons with extremes of body size or muscle mass and should also be interpreted with caution in patients with acute kidney failure, dialysis dependent patients, patients reporting exceptional dietary intake (e.g. vegetarian diet, high protein diets, creatine supplementation), and patients with severe liver disease. Based on National Kidney Disease Education Program If patient is , please refer to the GFR result. GFR, >60 >=60 mL/min/1.7 3 sq meter 05/03/2016 10:59 PM CDT [facility] ANION GAP 17 12 - 20 mmol/L 05/03/2016 10:59 PM [facility] Blood 05/03/2016 4:07 PM CDT 05/03/2016 8:23 PM CDT us [place]er Joaquín Sotelo MD CHEMISTRY ORDER DESI Final Result [facility] CLIA # [id number] [address] [place] [address] * (ABNORMAL) CBC WITH DIFFERENTIAL (05/03/2016 4:07 PM CDT) WBC 8.9 4.0 - 10.0 K/uL 05/03/2016 10:44 PM [facility] RBC 5.58(H) 3.93 - 5.22 M/uL 05/03/2016 10:44 PM [facility] HEMOGLOBIN 14.7 11.2 - 15.7 g/dL 05/03/2016 10:44 PM [facility] HEMATOCRIT 44.5 34.1 - 44.9 % 05/03/2016 10:44 PM [facility] MCV 79.7 79.4 - 94.8 fL 05/03/2016 10:44 PM [facility] MCH 26.3 25.6 - 32.2 pg 05/03/2016 10:44 PM [facility] MCHC 33.0 32.2 - 35.5 g/dL 05/03/2016 10:44 PM [facility] RDW 16.3(H) 11.0 - 14.5 % 05/03/2016 10:44 PM [facility] RDW-STDEV 47.3 36.9 - 56.9 fL 05/03/2016 10:44 PM [facility] PLATELETS 357(H) 163 - 337 K/uL 05/03/2016 10:44 PM CDT [facility] MPV 10.9 10.0 - 14.8 fL 05/03/2016 10:44 PM CDT [facility] Blood 05/03/2016 4:07 PM CDT 05/03/2016 8:23 PM CDT [facility] Joaquín Sotelo MD HEMATOLOGY TIM REYNOSO Final Result [facility] CLIA # [id number] [address] [place] [address] documented in this encounter Visit Diagnoses Not on filedocumented in this encounter
--- OUTSIDE RECORDS SUMMARY | 2024-11-23 18:15 | XMS_ITS | Encounter Summary ---
Author Organization [facility] Address [address] [place] [address] Care Team Providers Care Design Teacher Name Role Phone Unavailable Primary Care Provider Unavailabl e Encounter Details Date Type Department Care Team (Late st Contact Info) Description 06/07/2016 Lab Requisition [facility] General Laboratory Services [place] [address] [place] [phone] Bertram Ryder DO NO ADDRESS ON FILE Social History Tobacco Use Types Packs/Day Years Used Date Smoking Tobacco: Every Day Cigarettes 1 40 Comments Unknown Sex and Gender Information Value Date Recorded Sex Assigned at Not on file 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:52 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 Gender Identity Not on file Sexual Orientation Not on file documented as of this encounter Plan of Treatment Not on file documented as of this encounter Procedures Procedure Name Priority Date/Time Associated Diagnosis Comments CBC WITH DIFFERENTIAL Routine 06/07/2016 9:32 PM CDT SEDIMENTATION RATE Routine 06/07/2016 9: 32 PM CDT documented in this encounter Results * SEDIMENTATION RATE (06/07/2016 9:32 PM CDT) ESR (SEDIMENTATION RATE) 3 0 - 30 mm/Hr 06/07/2016 11:23 PM CDT [facility] Blood Collection / Unknown 06/07/2016 9:32 PM CDT 06/07/2016 9:37 PM CDT us Bertram Ryder DO HEMATOLOGY ORDERABLES Final Result [facility] CLIA # [id number] [address] [place] [address] * (ABNORMAL) CBC WITH DIFFERENTIAL (06/07/2016 9:32 PM CDT) WBC 7.6 4.0 - 10.0 K/uL 06/07/2016 10:32 PM [facility] RBC 5.96(H) 3.93 - 5.22 M/uL 06/07/2016 10:32 PM [facility] HEMOGLOBIN 15.8(H) 11.2 - 15.7 g/dL 06/07/2016 10:32 PM [facility] HEMATOCRIT 47.2(H) 34.1 - 44.9 % 06/07/2016 10:32 PM [facility] MCV 79.2(L) 79.4 - 94.8 fL 06/07/2016 10:32 PM [facility] MCH 26.5 25.6 - 32.2 pg 06/07/2016 10:32 PM [facility] MCHC 33.5 32.2 - 35.5 g/dL 06/07/2016 10:32 PM [facility] RDW 16.0(H) 11.0 - 14.5 % 06/07/2016 10:32 PM [facility] RDW-STDEV 46.0 36.9 - 56.9 fL 06/07/2016 10:32 PM [facility] PLATELETS 363(H) 163 - 337 K/uL 06/07/2016 10:32 PM [facility] MPV 10.7 10.0 - 14.8 fL 06/07/2016 10:32 PM [facility] NEUTROPHILS 64 34 - 71 % 06/07/2016 10:32 PM [facility] LYMPHOCYTES 30 19 - 52 % 06/07/2016 10:32 PM [facility] MONOCYTES 6 5 - 13 % 06/07/2016 10:32 PM [facility] EOSINOPHILS 0(L) 1 - 6 % 06/07/2016 10:32 PM [facility] BASOPHILS 0 0 - 1 % 06/07/2016 10:32 PM [facility] NEUTROPHIL ABSOLUTE 4.86 1.56 - 6.13 K/uL 06/07/2016 10:32 PM [facility] LYMPHOCYTE ABSOLUTE 2.25 1.20 - 3.40 K/uL 06/07/2016 10:32 PM [facility] MONOCYTE ABSOLUTE 0.46(H) 0.24 - 0.36 K/uL 06/07/2016 10:32 PM [facility] EOSINOPHIL ABSOLUTE 0.01(L) 0.04 - 0.36 K/uL 06/07/2016 10:32 PM [facility] BASOPHILS ABSOLUTE 0.02 0.01 - 0.08 K/uL 06/07/2016 10:32 PM [facility] IMMATURE GRANULOCYTES 0 % 06/07/2016 10:32 PM [facility] IMMATURE GRANULOCYTES ABSOLUTE 0.02 K/uL 06/07/2016 10:32 PM [facility] Blood Collection / Unknown 06/07/2016 9:32 PM CDT 06/07/2016 9:37 PM CDT us Bertram Ryder DO HEMATOLOGY ORDERABLES Final Result [facility] CLIA # [id number] [address] [place] [address] documented in this encounter Visit Diagnoses Not on filedocumented in this encounter
--- OUTSIDE RECORDS SUMMARY | 2024-11-23 18:15 | XMS_ITS | Encounter Summary ---
Author Organization [facility] Address [address] [place] [address] Care Team Providers Care Machine Assistant Name Role Phone Unavailable Primary Care Provider Unavailabl e Encounter Details Date Type Department Care Team (Late st Contact Info) Description 09/01/2015 Lab Requisition [facility] Laboratory Services [place] [address] [place] [phone] Flo Lopez PA NO ADDRESS ON FILE Illness Social History Tobacco Use Types Packs/Day Years Used Date Smoking Tobacco: Every Day Cigarettes 1 40 Comments Unknown Sex and Gender Information Value Date Recorded Sex Assigned at Not on file 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:52 AM HEATING AND COOLING TECHNICIAN Gender Identity Not on file Sexual Orientation Not on file documented as of this encounter Plan of Treatment Not on file documented as of this encounter Procedures Procedure Name Priority Date/Time Associated Diagnosis Comments TSH Routine 09/01/2015 9:00 PM HEATING AND COOLING TECHNICIAN Illness HEPATIC FUNCTION PANEL Routine 09/01/2015 9:00 PM HEATING AND COOLING TECHNICIAN Illness LIPID PANEL Routine 09/01/2015 9:00 PM HEATING AND COOLING TECHNICIAN Illness BASIC METABOLIC PANEL Routine 09/01/2015 9:00 PM HEATING AND COOLING TECHNICIAN Illness documented in this encounter Results * TSH (09/01/2015 9:00 PM HEATING AND COOLING TECHNICIAN) TSH 2.20 0.27 - 4.20 uIU/mL 09/01/2015 9:46 PM HEATING AND COOLING TECHNICIAN [facility] [place] Blood Collection / Unknown 09/01/2015 9:00 PM HEATING AND COOLING TECHNICIAN 09/01/2015 9:00 PM HEATING AND COOLING TECHNICIAN us Flo CROWDER CHEMISTRY ORDERABLES Final Re sult [facility] [employer] [facility] [place] # [id number] 100 [facility] [address] [place] [address] * (ABNORMAL) LIPID PANEL (09/01/2015 9:00 PM HEATING AND COOLING TECHNICIAN) CHOLESTEROL 160 <200 mg/dL 09/01/2015 9:46 PM HEATING AND COOLING TECHNICIAN [facility] [employer] [facility] [place] TRIGLYCERIDE 161(H) <150 mg/dL 09/01/2015 9:46 PM [facility] [employer] [facility] HDL 54 40 - 59 mg/dL 09/01/2015 9:46 PM [facility] [employer] [facility] LDL CALCULATED 74 <100 mg/dL 09/01/2015 9:46 PM [facility] [employer] [facility] NON-HDL CHOLESTEROL 106 <130 mg/dL 09/01/2015 9:46 PM [facility] [employer] [facility] Blood Collection / Unknown 09/01/2015 9:00 PM HEATING AND COOLING TECHNICIAN 09/01/2015 9:00 PM HEATING AND COOLING TECHNICIAN Narrative [facility] [employer] - [place] - 09/01/2015 9:46 PM HEATING AND COOLING TECHNICIAN TOTAL CHOLESTEROL mg/dL ??Desirable ? <200 ??Borderline [...] high ? >=220 Based on AHA/NCEP Guidelines Flo CROWDER CHEMISTRY ORDERABLES Final Re sult [facility] - [place] CLIA # [id number] [address] [place] [address] * HEPATIC FUNCTION PANEL (09/01/2015 9:00 PM HEATING AND COOLING TECHNICIAN) TOTAL PROTEIN 7.2 6.6 - 8.7 g/dL 09/01/2015 9:46 PM HEATING AND COOLING TECHNICIAN [facility] - [place] ALBUMIN 3.9 3.5 - 5.2 g/dL 09/01/2015 9:46 PM HEATING AND COOLING TECHNICIAN [facility] - [place] BILIRUBIN TOTAL <0.2 0.0 - 1.2 mg/dL 09/01/2015 9:46 PM HEATING AND COOLING TECHNICIAN [facility] [place] BILIRUBIN DIRECT <0.2 0.0 - 0.3 mg/dL 09/01/2015 9:46 PM HEATING AND COOLING TECHNICIAN [facility] - [place] ALKALINE PHOSPHATASE 87 35 - 104 U/L 09/01/2015 9:46 PM HEATING AND COOLING TECHNICIAN [facility] [place] AST 17 10 - 35 U/L 09/01/2015 9:46 PM HEATING AND COOLING TECHNICIAN [facility] [place] ALT 10 10 - 35 U/L 09/01/2015 9:46 PM HEATING AND COOLING TECHNICIAN [facility] [employer] [facility] Blood Collection / Unknown 09/01/2015 9:00 PM HEATING AND COOLING TECHNICIAN 09/01/2015 9:00 PM HEATING AND COOLING TECHNICIAN Flo CROWDER CHEMISTRY ORDERABLES Final Re sult [facility] [employer] [facility] CLIA # [id number] [address] [place] [address] * (ABNORMAL) BASIC METABOLIC PANEL (09/01/2015 9:00 PM HEATING AND COOLING TECHNICIAN) SODIUM 135(L) 136 - 145 mmol/L 09/01/2015 9:46 PM [facility] [employer] [facility] POTASSIUM 3.6 3.5 - 5.1 mmol/L 09/01/2015 9:46 PM [facility] [employer] [facility] CHLORIDE 97(L) 98 - 107 mmol/L 09/01/2015 9:46 PM [facility] [employer] [facility] CO2 26 22 - 29 mmol/L 09/01/2015 9:46 PM [facility] [employer] [facility] CALCIUM 9.0 8.8 - 10.2 mg/dL 09/01/2015 9:46 PM [facility] [employer] [facility] BUN 8 8 - 23 mg/dL 09/01/2015 9:46 PM [facility] [employer] [facility] CREATININE 0.66 0.51 - 0.95 mg/dL 09/01/2015 9:46 PM [facility] [employer] [facility] GLUCOSE 85 74 - 106 mg/dL 09/01/2015 9:46 PM [facility] [employer] [facility] GFR >60 >=60 mL/min/1.7 3 sq meter 09/01/2015 9:46 PM [facility] [employer] [facility] Comment: eGFR has not been validated for [...] GFR, >60 >=60 mL/min/1.7 3 sq meter 09/01/2015 9:46 PM HEATING AND COOLING TECHNICIAN [facility] - [place] ANION GAP 12 12 - 20 mmol/L 09/01/2015 9:46 PM HEATING AND COOLING TECHNICIAN [facility] [place] Blood Collection / Unknown 09/01/2015 9:00 PM HEATING AND COOLING TECHNICIAN 09/01/2015 9:00 PM HEATING AND COOLING TECHNICIAN us Flo CROWDER CHEMISTRY ORDERABLES Final Re sult [facility] - [place] CLIA # [id number] [address] [place] [address] documented in this encounter Visit Diagnoses Diagnosis Illness Other unknown and unspecified cause of morbidity or mortality documented in this encounter
--- OUTSIDE RECORDS SUMMARY | 2024-11-23 18:15 | XMS_ITS | Encounter Summary ---
Author Organization [facility] Address [address] [place] [address] Care Team Providers Care Power Shovel Mechanic Name Role Phone Unavailable Primary Care Provider Unavailabl e Encounter Details Date Type Department Care Team (Late st Contact Info) Description 07/07/2015 Lab Requisition [facility] Laboratory Services [place] [address] [place] [phone] Lorenzo Gregory, [place] [address] [place] [address] Social History Tobacco Use Types Packs/Day Years Used Date Smoking Tobacco: Every Day Cigarettes 1 40 Comments Unknown Sex and Gender Information Value Date Recorded Sex Assigned at Not on file 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:52 AM MIS MANAGER Gender Identity Not on file Sexual Orientation Not on file documented as of this encounter Plan of Treatment Not on file documented as of this encounter Procedures Procedure Name Priority Date/Time Associated Diagnosis Comments CBC WITH DIFFERENTIAL Routine 07/07/2015 10:30 PM CDT TSH Routine 07/07/2015 10:30 PM CDT LIPID PANEL Routine 07/07/2015 10:30 PM CDT COMPREHENSIVE METABOLIC PANEL Routine 07/07/2015 10:30 PM CDT documented in this encounter Results * (ABNORMAL) TSH (07/07/2015 10:30 PM CDT) TSH 4.41(H) 0.27 - 4.20 uIU/mL 07/07/2015 11:25 PM CDT [facility] Blood 07/07/2015 10:3 0 PM CDT 07/07/2015 10:30 PM CDT us Lorenzo CROWDER CHEMISTRY ORDERABLES Final R esult [facility] CLIA # [id number] [address] [place] [address] * (ABNORMAL) LIPID PANEL (07/07/2015 10:30 PM CDT) CHOLESTEROL 259(H) <200 mg/dL 07/07/2015 11:25 PM CDT [facility] TRIGLYCERIDE 85 <150 mg/dL 07/07/2015 11:25 PM CDT [facility] HDL 78(H) 40 - 59 mg/dL 07/07/2015 11:25 PM CDT [facility] LDL CALCULATED 164(H) <100 mg/dL 07/07/2015 11:25 PM CDT [facility] NON-HDL CHOLESTEROL 181(H) <130 mg/dL 07/07/2015 11:25 PM CDT [facility] Blood 07/07/2015 10:3 0 PM CDT 07/07/2015 10:30 PM CDT Narrative [facility] - 07/07/2015 11:25 PM CDT TOTAL CHOLESTEROL mg/dL ??Desirable ? [...] high ? >=220 Based on AHA/NCEP Guidelines us Lorenzo CROWDER CHEMISTRY ORDERABLES Final R esult [facility]AT[facility] - [place] CLIA # [id number] [address] [place] [address] * (ABNORMAL) COMPREHENSIVE METABOLIC PANEL (07/07/2015 10:30 PM CDT) SODIUM 138 136 - 145 mmol/L 07/07/2015 11:25 PM CDT [facility] [place] POTASSIUM 4.0 3.5 - 5.1 mmol/L 07/07/2015 11:25 PM CDT [facility] [place] CHLORIDE 97(L) 98 - 107 mmol/L 07/07/2015 11:25 PM CDT [facility] [place] CO2 27 22 - 29 mmol/L 07/07/2015 11:25 PM CDT [facility] [place] CALCIUM 9.7 8.8 - 10.2 mg/dL 07/07/2015 11:25 PM CDT [facility] [place] BUN 5(L) 8 - 23 mg/dL 07/07/2015 11:25 PM [facility] [employer] [facility] [place] CREATININE 0.60 0.51 - 0.95 mg/dL 07/07/2015 11:25 PM [facility] LABORATORY [facility] [place] GLUCOSE 75 74 - 106 mg/dL 07/07/2015 11:25 PM [facility] LABORATORY [facility] TOTAL PROTEIN 8.7 6.6 - 8.7 g/dL 07/07/2015 11:25 PM [facility] [employer] [facility] ALBUMIN 4.7 3.5 - 5.2 g/dL 07/07/2015 11:25 PM [facility] [employer] [facility] [place] BILIRUBIN TOTAL 0.3 0.0 - 1.2 mg/dL 07/07/2015 11:25 PM [facility] [employer] [facility] ALKALINE PHOSPHATASE 119(H) 35 - 104 U/L 07/07/2015 11:25 PM [facility] [employer] [facility] [place] AST 34 10 - 35 U/L 07/07/2015 11:25 PM [facility] [employer] [facility] ALT 34 10 - 35 U/L 07/07/2015 11:25 PM [facility] [employer] [facility] GFR >60 >=60 mL/min/1.7 3 sq meter 07/07/2015 11:25 PM [facility] [employer] [facility] Comment: eGFR has not been validated for [...] GFR, >60 >=60 mL/min/1.7 3 sq meter 07/07/2015 11:25 PM [facility] [employer] LABORATORY [facility] ANION GAP 14 12 - 20 mmol/L 07/07/2015 11:25 PM [facility] [employer] [facility] Blood 07/07/2015 10:3 0 PM CDT 07/07/2015 10:30 PM CDT us Lorenzo CROWDER CHEMISTRY ORDERABLES Final R esult [facility] [place] RODNEY # [id number] [address] [place] [address] * (ABNORMAL) CBC WITH DIFFERENTIAL (07/07/2015 10:30 PM CDT) WBC 7.8 4.0 - 10.0 K/uL 07/07/2015 10:57 PM CDT [employer] [facility] [place] RBC 6.01(H) 3.93 - 5.22 M/uL 07/07/2015 10:57 PM CDT [employer] [facility] [place] HEMOGLOBIN 15.7 11.2 - 15.7 g/dL 07/07/2015 10:57 PM CDT [facility] [place] HEMATOCRIT 47.0(H) 34.1 - 44.9 % 07/07/2015 10:57 PM CDT [employer] [facility] [place] MCV 78.2(L) 79.4 - 94.8 fL 07/07/2015 10:57 PM CDT [employer] [facility] [place] MCH 26.1 25.6 - 32.2 pg 07/07/2015 10:57 PM CDT [employer] [facility] [place] MCHC 33.4 32.2 - 35.5 g/dL 07/07/2015 10:57 PM CDT [employer] [facility] [place] RDW 16.6(H) 11.0 - 14.5 % 07/07/2015 10:57 PM CDT [employer] [facility] - [place] RDW-STDEV 46.4 36.9 - 56.9 fL 07/07/2015 10:57 PM CDT [employer] [facility] [place] PLATELETS 389(H) 163 - 337 K/uL 07/07/2015 10:57 PM CDT [employer] [facility] [place] MPV 10.3 10.0 - 14.8 fL 07/07/2015 10:57 PM CDT [employer] [facility] [place] NEUTROPHILS 52 34 - 71 % 07/07/2015 10:57 PM CDT [facility] [place] LYMPHOCYTES 42 19 - 52 % 07/07/2015 10:57 PM CDT [facility] [employer] [place] MONOCYTES 6 5 - 13 % 07/07/2015 10:57 PM CDT [facility] [place] EOSINOPHILS 0(L) 1 - 6 % 07/07/2015 10:57 PM CDT [facility] [place] BASOPHILS 0 0 - 1 % 07/07/2015 10:57 PM CDT [facility] [place] NEUTROPHIL ABSOLUTE 4.01 1.56 - 6.13 K/uL 07/07/2015 10:57 PM CDT [facility] [place] LYMPHOCYTE ABSOLUTE 3.28 1.20 - 3.40 K/uL 07/07/2015 10:57 PM CDT [facility] [place] MONOCYTE ABSOLUTE 0.43(H) 0.24 - 0.36 K/uL 07/07/2015 10:57 PM CDT [facility] [place] EOSINOPHIL ABSOLUTE 0.01(L) 0.04 - 0.36 K/uL 07/07/2015 10:57 PM CDT [facility] [place] BASOPHILS ABSOLUTE 0.01 0.01 - 0.08 K/uL 07/07/2015 10:57 PM CDT [facility] [place] IMMATURE GRANULOCYTES 0 % 07/07/2015 10:57 PM CDT [facility] [place] IMMATURE GRANULOCYTES ABSOLUTE 0.01 K/uL 07/07/2015 10:57 PM CDT [facility] [place] Blood 07/07/2015 10:3 0 PM CDT 07/07/2015 10:30 PM CDT us Lorenzo CROWDER HEMATOLOGY ORDERABLES Final Result [facility] [place] CLIA # [id number] [address] [place] [address] documented in this encounter Visit Diagnoses Not on filedocumented in this encounter
--- OUTSIDE RECORDS SUMMARY | 2024-11-23 18:15 | XMS_ITS | Encounter Summary ---
Author Organization [facility] Address [address] [place] [address] Care Team Providers Care Brilliandeer Lopper Name Role Phone Unavailable Primary Care Provider Unavailabl e Encounter Details Date Type Department Care Team (Late st Contact Info) Description 08/16/2016 Lab Requisition [facility] General Laboratory Services [place] [address] [place] [phone] Colin Gómez, DO NO ADDRESS ON FILE Social History Tobacco Use Types Packs/Day Years Used Date Smoking Tobacco: Every Day Cigarettes 1 40 Comments Unknown Sex and Gender Information Value Date Recorded Sex Assigned at Not on file 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:52 AM ASSISTANCE REPRESENTATIVE Gender Identity Not on file Sexual Orientation Not on file documented as of this encounter Plan of Treatment Not on file documented as of this encounter Procedures Procedure Name Priority Date/Time Associated Diagnosis Comments LIPID PANEL Routine 08/16/2016 8:11 PM ASSISTANCE REPRESENTATIVE documented in this encounter Results * (ABNORMAL) LIPID PANEL (08/16/2016 8:11 PM ASSISTANCE REPRESENTATIVE) CHOLESTEROL 221(H) <200 mg/dL 08/16/2016 11:48 PM [facility] TRIGLYCERIDE 81 <150 mg/dL 08/16/2016 11:48 PM [facility] HDL 57 40 - 59 mg/dL 08/16/2016 11:48 PM [facility] LDL CALCULATED 148(H) <100 mg/dL 08/16/2016 11:48 PM [facility] NON-HDL CHOLESTEROL 164(H) <130 mg/dL 08/16/2016 11:48 PM [facility] Blood Collection / Unknown 08/16/2016 8:11 PM ASSISTANCE REPRESENTATIVE 08/16/2016 9:08 PM ASSISTANCE REPRESENTATIVE Narrative [facility] - 08/16/2016 11:48 PM ASSISTANCE REPRESENTATIVE TOTAL CHOLESTEROL ??mg/dL ??Desirable <200 ??Borderline high 200-239 ??High >=240 TRIGLYCERIDES ??mg/dL ??Normal <150 ??Borderline high 150-199 ??High 200-499 ??Very high >=500 HDL CHOLESTEROL ??mg/dL ??Low <40 ??Normal 40-59 ??Desirable >=60 NON HDL CHOLESTEROL mg/dL ??Optimal <130 ??Near Optimal 130-159 ??Borderline High 160-189 ??Very High >=190 Calculated LDL mg/dL ??Optimal <100 ??Near Optimal 100-129 ??Borderline High 130-159 ??High 160-189 ??Very High >=190 ATPIII Guidelines Reference Ranges for Lipid Panels (NCEP/AMA) us Colin Gómez DO CHEMISTRY ORDERABLES Final Resu lt [facility] CLIA # [id number] [address] [address] documented in this encounter Visit Diagnoses Not on filedocumented in this encounter
--- OUTSIDE RECORDS SUMMARY | 2024-11-23 18:16 | XMS_ITS | Clinical Summary ---
Author Organization [facility] Address [address] [place] [address] Care Team Providers Care Expenditure Requisition Clerk Name Role Phone Unavailable Primary Care Provider Unavailabl e Allergies Active Allergy Reactions Criticality Noted Date Comments Diphenhydramine-Zinc Acetate Hives 014 Ipratropium-Albuterol Hives,Swelling 06/10/2014 Medications ALBUTEROL SULFATE ORAL Take by mouth. 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 Gender Identity Not on file Sexual Orientation Not on file Last Filed Vital Signs Vital Sign Reading Time Taken Comments Blood Pressure 130/68 06/10/2014 10:51 AM CDT Pulse - - Temperature - - Respiratory Rate - - Oxygen Saturation - - Inhaled Oxygen Concentration - - Weight 58.5 kg (129 lb) 06/10/2014 10:51 AM CDT Height 154.9 cm (5' 1 ) 06/10/2014 10:51 AM CDT Body Mass Index 24.37 06/10/2014 10:51 AM CDT Plan of Treatment Health Maintenance Due Date Last Done Comments DTAP/TDAP/TD VACCINES (1 - Tdap) 1973 PNEUMOCOCCAL VACCINE 50+ YEARS (1 of 2 - PCV) 02/20/19 73 COLORECTAL SCREENING 1999 Colorectal Cancer Screening 1999 FIT-DNA Q 3 years 1999 FIT/FOBT Q 1 year 1999 Flex Sig/CT Colonography Q 5 years 1999 ZOSTER VACCINE (1 of 2) 02/21/2004 BREAST CANCER SCREENING 05/06/2015 05/06/2014 OSTEOPOROSIS SCREENING 2019 INFLUENZA VACCINE (#1) 2024 RSV VACCINE (60+ or ) (1 - 1-dose 75+ series) 2029 Procedures Procedure Name Priority Date/Time Associated Diagnosis Comments MAMMOGRAM REPORT Routine 05/06/2014 from Last 3 Months or Most Recently Relevant to Health Maintenance Results * MAMMOGRAM REPORT (05/06/2014) Anatomical Region Laterality Modality Other us Abstract Spg Provider MAMMO ORDERABLES Final Res ult from Last 3 Months or Most Recently Relevant to Health Maintenance Insurance [address] [place] [address] [place]ICA[place] [id number] HMO
--- OUTSIDE RECORDS SUMMARY | 2024-11-23 18:16 | XMS_ITS | Data Portability ---
Author Organization 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 Plan of Treatment Reminders Order Date Submit Date Provider Last Modified By Organization Details Last Modified Time Details Appointments OFFICE VISIT 2024 08:40A M JULIO CESAR DOBBS PA-C Not available Not available Not available Lab noninvasi ve colorecta l cancer DNA + occult blood screening , QL, stool 2024 025 [facility] (Cologuard Orders Only), [address], [place], [address], 10/26/2024 07:34:35 Referral orthopedi c surgeon referral [email or web address] [place] [address] [facility], [address] [place], [address], 08/03/2024 10:48:00 primary care provider referral - DR. Diaz for colonosco py 2023 024 [email or web address] Not available 07/02/2024 17:01:39 Procedures colonosco py procedure (PROC) 2023 024 asurface [facility], [address], [place], [address], 09/03/2024 14:33:32 Surgeries None recorded. Imaging LDCT, chest, for lung cancer screening [address] (Scheduling Orders), [address] [place], [address], 06/25/2024 11:44:18 DEXA [address] (Scheduling Orders), [address] [place], [address], 06/25/2024 11:52:57 Medication Orders prednison e 20 mg tablet 2024 025 [facility] 15, [address], [address], 11/20/2024 13:00:49 fluticaso ne 250 mcg-salme terol 50 mcg/dose blistr powdr for inhalatio n 2024 025 [facility] 15, [address], [place], [address], 10/19/2024 10:26:41 benzonata te 200 mg capsule 2023 025 [facility] 15, [address], [place], [address], 10/19/2024 10:24:33 prednison e 20 mg tablet [email or web address] [place] [address] Pharmacy 15, [address], [place], [address], 11/20/2024 07:28:13 Mucinex 600 mg tablet, extended release 2023 025 [facility] 15, [address], [place], [address], 10/19/2024 09:56:48 azithromy marcela 250 mg tablet 2023 025 [facility], [address], [place], [address], 10/19/2024 10:24:29 Patient TargetsNo targets recorded. Patient Instructions Encounter Date Encounter Id Patient Instructions Last Modified By Organization Details Last Modified Time 08/16/2024 [id number] colonoscopy prep - miralax Not available 08/29/2024 18:12:51 colonoscopy education Not available 08/29/2024 18:12:51 colonoscopy education Not available 08/29/2024 18:12:51 Reason for Referral Primary Care Provider Referr al for Screening for malignant neoplasm of colon DR. Diaz for colonoscopy Referring Physician: Julio Cesar Dobbs, [facility], Encounter Date: 06/12/2024 Orthopedic Surgeon Referral for Trigger finger of left hand Referring Physician: Julio Cesar Dobbs [facility], Encounter Date: 07/27/2024 Results Created Date Observation Date Name Description Value Unit Range Abnormal Flag Note LastModifiedBy Organization Detail LastModifiedTime 05/22/20 24 05/22/2024 CBC WBC 6.5 x10 4.0-10 .5 Not Available [facility] [address] [facility] [address], [place], [address], 05/22/2024 12:26:39 05/22/20 24 05/22/2024 CBC RBC 5.24 x10 3.50-5 .50 Not Available [facility] [address] [facility] [address], [place], [address], 05/22/2024 12:26:39 05/22/20 24 05/22/2024 CBC HGB 13.7 g/dL 12.0-1 6.0 Not Available [facility] [address] [facility] [address], [place], [address], 05/22/2024 12:26:39 05/22/20 24 05/22/2024 CBC HCT 41.3 % 37.0-4 7.0 Not Available [facility] [address], [place], [address], 05/22/2024 12:26:39 05/22/20 24 05/22/2024 CBC MCV 78.9 fL 80.0-9 9.9 low Not Available [facility] [address], [place], [address], 05/22/2024 12:26:39 05/22/20 24 05/22/2024 CBC MCH 26.2 pg 27.0-3 2.0 low Not Available [facility] [address], [place], [address], 05/22/2024 12:26:39 05/22/20 24 05/22/2024 CBC MCHC 33.2 g/dL 32.0-3 6.0 Not Available [facility] [address] [facility] 1, [place], [address], 05/22/2024 12:26:39 05/22/20 24 05/22/2024 CBC RDW 17.8 % 11.5-1 4.5 high Not Available [facility] [address] [facility] 1, [place], [address], 05/22/2024 12:26:39 05/22/20 24 05/22/2024 CBC plt 312.2 x10 140.0- 451.0 Not Available [facility] [address], [place], [address], 05/22/2024 12:26:39 05/22/20 24 05/22/2024 CBC lymphocytes % 28.6 % 20.0-5 0.0 Not Available [facility] [address], [place], [address], 05/22/2024 12:26:39 05/22/20 24 05/22/2024 CBC granulcytes % 63.4 % 30.0-7 0.0 Not Available [facility] [address] [facility], [place], [address], 05/22/2024 12:26:39 05/22/20 24 05/22/2024 CBC monocytes % 6.9 % 2.0-16 .0 Not Available [facility] [address] [facility], [place], [address], 05/22/2024 12:26:39 05/22/20 24 05/22/2024 CBC granulcytes# 4.2 x10 Not Soraya ilable [facility] [address] [address], [place], [address], 05/22/2024 12:26:39 05/22/20 24 05/22/2024 CBC lymphocytes # 1.9 x10 Not Available [facility] [address] [facility] [address] [address], [place], [address], 05/22/2024 12:26:39 05/22/20 24 05/22/2024 CBC monocytes # 0.5 x10 Not Avai lable [facility] [address] [address], [place], [address], 05/22/2024 12:26:39 05/22/20 24 05/22/2024 CMP (FEMA LE) glucose 103.0 mg/dL 60.0-9 9.0 high Not Available [facility] [address] [facility] [address] [address], [place], [address], 05/22/2024 13:23:31 05/22/20 24 05/22/2024 CMP (FEMA LE) BUN (blood urea nitrogen) 12.0 mg/dL 10.0-2 6.0 Not Available [facility] [address] [facility] [address] [address], [place], [address], 05/22/2024 13:23:31 05/22/20 24 05/22/2024 CMP (FEMA LE) creatinine (serum) 0.6 mg/dL 0.4-1. 5 Not Available [facility] [address] [facility], [place], [address], 05/22/2024 13:23:31 05/22/20 24 05/22/2024 CMP (FEMA LE) BUN/creatini ne ratio 19.05 ratio Not Available [facility] [address] [facility], [place], [address], 05/22/2024 13:23:31 05/22/20 24 05/22/2024 CMP (FEMA LE) eGFR calculated 99.3 Not Available [facility] [address] [facility], [place], [address], 05/22/2024 13:23:31 05/22/20 24 05/22/2024 CMP (FEMA LE) total protein 7.7 g/dL 6.0-8. 5 Not Available [facility] [address] [facility], [place], [address], 05/22/2024 13:23:31 05/22/20 24 05/22/2024 CMP (FEMA LE) total bilirubin 0.5 mg/dL 0.2-1. 3 Not Available [facility] [address] [facility], [place], [address], 05/22/2024 13:23:31 05/22/20 24 05/22/2024 CMP (FEMA LE) albumin 4.5 g/dL 3.5-5. 5 Not Available [facility] [address] [facility], [place], [address], 05/22/2024 13:23:31 05/22/20 24 05/22/2024 CMP (FEMA LE) globulin 3.2 calc Not Available [facility] [address] [facility], [place], [address], 05/22/2024 13:23:31 05/22/20 24 05/22/2024 CMP (FEMA LE) AST (SGOT) 25.0 U/L 0.0-46 .0 Not Available [facility] [address] [facility], [place], [address], 05/22/2024 13:23:31 05/22/20 24 05/22/2024 CMP (FEMA LE) altv (SGPT) 14.0 U/L 13.0-6 9.0 normal Not Available [facility] [address] [facility] [facility], [place], [address], 05/22/2024 13:23:31 05/22/20 24 05/22/2024 CMP (FEMA LE) A/G ratio 1.4 ratio Not Available [facility] [address] [facility], [place], [address], 05/22/2024 13:23:31 05/22/20 24 05/22/2024 CMP (FEMA LE) ALP phos 90.0 U/L 30.0-1 40.0 normal Not Available [facility] [address] [facility], [place], [address], 05/22/2024 13:23:31 05/22/20 24 05/22/2024 CMP (FEMA LE) calcium 9.5 mg/dL 8.4-10 .5 Not Available [facility] [address] [facility], [place], [address], 05/22/2024 13:23:31 05/22/20 24 05/22/2024 CMP (FEMA LE) sodium 137.0 mmol/ L 136.0- 145.0 Not Available [facility] [address] [facility], [place], [address], 05/22/2024 13:23:31 05/22/20 24 05/22/2024 CMP (FEMA LE) potassium 4.4 mmol/ L 3.5-5. 1 Not Available [facility] [address] [facility], [place], [address], 05/22/2024 13:23:31 05/22/20 24 05/22/2024 CMP (FEMA LE) chloride 106.0 mmol/ L 98.0-1 10.0 normal Not Available [facility] [address] [facility], [place], [address], 05/22/2024 13:23:31 05/22/20 24 05/22/2024 CMP (FEMA LE) C02 23.0 mmol/ L 22.0-3 1.0 Not Available [facility] [address] [facility], [place], [address], 05/22/2024 13:23:31 05/22/20 24 05/22/2024 CMP (FEMA LE) anion gap 8.0 calc Not Available [facility] [address] [facility], [place], [address], 05/22/2024 13:23:31 05/22/20 24 05/22/2024 CMP (FEMA LE) osmolality 283.2 calc Not Available [facility] [address] [facility], [place], [address], 05/22/2024 13:23:31 10/29/1910/29/2024 COLOG UARD cologuard result reportable NEGATI VE negati ve normal NEGAT NILE TEST RESUL T. A negat nile Colog uard resul t indic ates a low likel ihood that a color ectal cance r (CRC) or advan fina adeno ma (andry omato us polyp s with more advan fina pre-m align ant featu res) is prese nt. The [facility] e that a perso n with a negat nile Colog uard test has a color ectal cance r is less than 1 in 1500 (nega tive predi ctive value >99.9 %) or has an advan fina adeno ma is less than 5.3% (nega tive predi ctive value 94.7% ). These data are based on a prosp ectiv e cross -sect ional study of ,00 0 indiv idual s at [facility] [facility] risk for color ectal cance r who were scree natalie with both Colog uard and colon oscop y. (Chris Toth. et al, N Engl J Med 2014; 370(1 4):12 86-12 97) The rosy l value (refe rence range ) for this assay is negat nile. COLOG UARD RE-SC REEANGELIC NG RECOM MENDA TION: Perio dic color ectal cance r scree magali is an impor tant part of preve ntive healt hcare for asymp tomat ic indiv idual s at [place] risk for color ectal cance r. Follo wing a negat nile Colog uard resul t, the Ameri can Cance r Socie ty and U.S. Multi -Soci ety Task Force scree magali guide lines recom mend a Colog uard re-sc reeni ng inter eddie of 3 years . Refer ences : Ameri can Cance r Socie ty Guide line for Color ectal Cance r Scree magali: https ://rossi w.can cer.o rg/ca ncer/ colon -rect al-ca ncer/ detec tion- diagn osis- stagi ng/ac s-rec ommen datio ns.ht ml.; Vitaliy WRIGHT, Vesta RADER, Diana ULRICH, Color ectal Cance r Scree magali: Recom menda tions for Physi cians and Patie nts from the U.S. Multi -Soci ety Task Force on Color ectal Cance r Jaymee magali , Marjorie thomas rolog y 2017; 112:1 016-1 030. TEST DESCR IPTIO N: [place] site algor ithmi c janet sis of stool DNA-b ioelijah kers with hemog lobin immun oassa y. Quant itati ve value s of indiv idual bioma rkers are not repor table and are not assoc iated with indiv idual bioma rker resul t refer ence range s. Colog uard is inten ded for color ectal cance r scree maglai of adult s of eithe r sex, 45 years or older , who are at [facility] for color ectal cance r (CRC) . Colog uard has been appro [place] for use by the U.S. FDA. The perfo rmanc e of Colog uard was estab lishe d in a cross secti onal study of [facility] adult s aged 50-84 . Colog uard perfo rmanc e in patie nts ages 45 to 49 years was estim ated by sub-g roup janet sis of near- age group s. Colon oscop ies perfo rmed for a posit nile resul t may find as the most clini nadira signi fican t lesio n: color ectal cance r [4.0% ], advan fina adeno ma (incl uding sessi le anam elva polyp s great er than or equal to 1cm diame ter) [20%] or non- advan fina adeno ma [31%] ; or no color ectal neopl anusha [45%] . These estim ates are deriv ed from a prosp ectiv e cross -sect ional scree magali study of ,00 0 indiv idual s at [facility] risk for color ectal cance r who were scree natalie with both Colog uard and colon oscop y. (Chris Zhang et al, N Engl J Med 2014; 370(1 4):12 86-12 97.) Colog uard may produ ce a false negat nile or false posit nile resul t (no color ectal cance r or preca ncero us polyp prese nt at colon oscop y follo w up). A negat nile Colog uard test resul t does not guara ntee the absen ce of CRC or advan fina adeno ma (pre- cance r). The curre nt Colog uard scree magali inter eddie is every 3 years . (Colette padilla Cance r Socie ty and U.S. Multi -Soci ety Task Force ). Colog uard perfo rmanc e data in a 10,00 0 patie nt pivot al study using colon oscop y as the refer ence metho d can be acces sed at the follo wing locat ion: www.e xactl abs.c om/re sults . Addit ional descr iptio n of the Colog uard test proce ss, warni ngs and preca ution s can be found at www.c olkarinau fabiana.c om. Not Available [facility] (Cologuard Orders Only) [address], [place], [address], 11/03/2024 10:43:37 05/22/20 24 05/22/2024 XR, chest , 2 view No observ ation record ed. [address] ([facility]) [address] [place], [address], 05/22/2024 17:48:18 05/22/20 24 05/22/2024 elect rocar diogr am No observ ation record ed. [address] ([facility]) [address] [place], [address], 05/22/2024 17:48:06 05/22/20 24 05/22/2024 XR, chest , 2 view No observ ation record ed. [address] [place], [address], 05/22/2024 17:30:56 05/25/20 24 elect rocar diogr am No observ ation record ed. [email or web address] Not Available 2023 16:41:48 06/27/20 24 06/26/2024 LDCT, chest , for lung cance r scree magali No observ ation record ed. [address] [place], [address], 06/27/2024 12:55:46 06/29/20 24 06/28/2024 pharm acolo gic nucle ar stres s test No observ ation record ed. [address], [address], 07/03/2024 16:43:41 07/05/20 24 07/05/2024 DEXA No observ ation record ed. [address], [address], 07/06/2024 11:22:53 07/06/20 24 06/28/2024 pharm acolo gi nucle ar stres s test No observ ation record ed. [address] [place], [address], 07/12/2024 16:46:28 08/01/2008/01/2024 , echoc ardio gram No observ ation record ed. [address] [place], [address], 08/02/2024 10:34:37 Result Notes None recorded. Problems Name Problem SNOMED Code Status Onset Date Resolution Date Notes Provider Name and Address Organization Details Recorded Time Periapic al abscess without sinus tract Completed 202107/29/2022 DENTAL ABSCESS - Status is Inactive ; Recorded 07/29/20 22 3:55PM by Julio Cesar Dobbs PA-C, Annotati on/Adden dum; Promoted ; acuity set as *; Not Available [facility] 3 03:08:34 Anxiety state 764406884 Active 2021 ANXIETY; Impressi on: pre procedur al.; Recorded 07/29/20 22 8:37AM by Rossy Wong LPN, Office Visit; Promoted ; acuity set as *; ROSSY torrez, [facility] 5 07:23:56 Clinical finding Completed 202110/18/2024 TYPE 2 DIABETES MELLITUS WITHOUT COMPLICA TION, WITHOUT LONG-TER M CURRENT USE OF INSULIN; Date: 03/16/20 22; Recorded 07/29/20 8:37AM by Rossy Wong LPN, Office Visit; Promoted ; acuity set as *; ROSSY torrez, [facility] 5 08:24:02 Headache 47842655 Completed 202111/25/2021 FACIAL PAIN - Status is Inactive ; Recorded 11/26/19 9:29AM by Julio Cesar Dobbs PA-C, Annotati on/Adden dum; Promoted ; acuity set as *; HEADACH E - Status is Resolved ; Resolved Date: 04/14/20; Recorded 04/14/20 3:48PM by Julio Cesar Dobbs PA-C, Annotati on/Adden dum; Promoted ; acuity set as *; ; Start Date : 04/14/20 Not Available [facility] 3 03:08:34 Primary malignan t neoplasm of female breast [id number] Completed 202110/18/2024 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; Recorded 07/29/20 8:37AM by Rossy Wong LPN, Office Visit; Promoted ; acuity set as *; ROSSY torrez, [facility] 5 08:24:02 Hyperten sive disorder 78266994 Completed 202110/18/2024 HYPERTEN PEYTON; Recorded 07/29/20 8:37AM by Rossy Wong LPN, Office Visit; Promoted ; acuity set as *; ROSSY torrez, [facility] 5 08:24:02 Carotid artery occlusio n 971826066 Active 2021 CAROTID STENOSIS , BILATERA L; Recorded 07/29/20 8:37AM by Rossy Wong LPN, Office Visit; Promoted ; acuity set as *; ROSSY torrez, [facility] 5 07:23:58 Gastroes ophageal reflux disease 918493189 Active 2021 GERD (GASTROE SOPHAGEA L REFLUX DISEASE) ; Recorded 07/29/20 8:37AM by Rossy Wong LPN, Office Visit; Promoted ; acuity set as *; ROSSY torrez, [facility] 5 07:24:10 Pulmonar y emphysem a 86320154 Completed 202004/14/2021 EMPHYSEM A/COPD - Status is Resolved ; Resolved Date: 04/14/20; Recorded 04/14/20 3:48PM by Julio Cesar Dobbs PA-C, Annotati on/Adden dum; Promoted ; acuity set as *; Not Available [facility] 3 03:08:35 Hypothyr oidism 99326580 Active 2021 SUBCLINI YESSICA HYPOTHYR OIDISM; Recorded 07/29/20 8:37AM by Rossy Wong LPN, Office Visit; Promoted ; acuity set as *; HYPOTHY ROIDISM; Recorded 07/29/20 8:37AM by Rossy Wong LPN, Office Visit; Promoted ; acuity set as *; ROSSY torrez, [facility] 5 07:24:19 Dyspnea 881942192 Completed 202004/14/2021 DYSPNEA ON EXERTION - Status is Resolved ; Resolved Date: 04/14/20; Recorded 04/14/20 3:48PM by Julio Cesar Dobbs PA-C, Annotati on/Adden dum; Promoted ; acuity set as *; Not Available [facility] 3 03:08:35 Acute exacerba tion of chronic obstruct nile pulmonar y disease 398061904 Completed 202004/14/2021 CHRONIC OBSTRUCT NILE ASTHMA WITH EXACERBA TION - Status is Inactive ; Recorded 04/14/20 3:48PM by Julio Cesar Dobbs PA-C, Annotati on/Adden dum; Promoted ; acuity set as *; ROSSY torrez [facility] 5 07:25:18 Dysthymi a 72676825 Completed 202004/14/2021 MALAISE AND FATIGUE - Status is Resolved ; Resolved Date: 04/14/20; Recorded 04/14/20 3:48PM by Julio Cesar Dobbs PA-C, Annotati on/Adden dum; Promoted ; acuity set as *; Not Available [facility] 3 03:08:35 Hyperlip idemia 20832304 Active 2022 ROSSY torrez [facility] 5 07:24:14 Carotid artery stenosis 50961289 Completed 202210/18/2024 ROSSY torrez [facility] 5 08:24:02 Sprain of left foot [id number] 433092 Completed 202211/09/2024 Removal Reason: resolved ROSSY torrez [facility] 5 07:25:16 Diabetes mellitus 32087887 Active 2022 ROSSY torrez [facility] 5 07:24:04 [facility] hyperten [place] 47659819 Active 2023 ROSSY torrez [facility] 5 07:24:07 Neoplasm of uncertai n behavior of skin of face 82832906 Completed 01/30/ 2024 11/09/2024 Removal Reason: resolved ROSSY HAEFFNER null, [facility] 5 07:24:49 Chronic diastoli c heart failure 771080455 Active 2023 ROSSY HAEFFNER null, [facility] 5 07:24:01 Nicotine dependen ce 18084421 Active 2023 ROSSY HAEFFNER null, [facility] 5 07:24:54 Peripher al vascular disease 379813691 Active 2023 ROSSY HAEFFNER null, [facility] 5 07:24:59 Moderate chronic obstruct nile pulmonar y disease 104124975 Active 2023 ROSSY HAEFFNER null, [facility] 5 07:24:33 Anxiety 09161055 Completed 202310/18/2024 ROSSY HAEFFNER null, [facility] 5 08:24:02 Osteopor osis 78732110 Active 2023 ROSSY HAEFFNER null, [facility] 5 07:24:56 Chronic obstruct nile pulmonar y disease 25556823 Active 2024 ROSSY HAEFFNER null, [facility] 5 07:25:27 Chronic obstruct nile pulmonar y disease 06151531 Completed 202210/18/2024 ROSSY HAEFFNER null, [facility] 5 07:25:27 Notes:Some problems listed i n Documents: #[id number], #[id number] could not be added to this patient's chart. Please review these documents and add these problems to the patient's chart manually as needed. Problem Notes None recorded. Procedures Surgical History Date Name Laterality Status Provider Name and Address Organization Details Recorded Time 11/03/19 25 screening for malignant neoplasm of colon [facility] [place] 11/08/2024 08:44:37 07/05/20 24 [facility] [place] 07/05/2024 16:01:33 06/28/20 24 radionuclide imaging of perfusion of myocardium under exercise stress completed JULIO CESAR DOBBS PA-C [address] [place], [address], [facility], [place] 07/27/2024 11:03:42 06/26/20 24 screening for malignant neoplasm of lung completed ROSSY VALIENTEYOLETTE [facility], [place] 06/27/2024 12:26:23 02/03/20 24 jr shave biopsy completed JULIO CESAR DOBBS PA-C [address] [place], [address], [facility], [place] 02/03/2024 14:01:46 05/27/20 23 jr cryo warts completed JULIO CESAR DOBBS PA-C [address] [place], [address], [facility], LRandellLCecily 05/27/2023 10:00:16 01/12/20 22 cardiac catheterization completed JULIO CESAR DOBBS PA-C [address] [place], [address], [facility], [place] 07/27/2024 11:05:03 03/22/20 14 mammography completed ROSSY VALIENTEYOLETTE [facility], [place] 06/12/2024 10:22:19 Imaging Results Imaging Date Name Status LastModified by Organization Details LastModified Time 05/22/2024 XR, chest, 2 view completed [facility] ([facility]) [address] [place], [address], 05/22/2024 17:48:18 05/22/2024 electrocardiogram completed [address] ([facility]) [address] [place], [address], 05/22/2024 17:48:06 05/22/2024 XR, chest, 2 view completed [address] [place], [address], 05/22/2024 17:30:56 05/25/2024 electrocardiogram completed [email or web address] Informa tion not available 05/29/2024 16:41:48 06/26/2024 LDCT, chest, for lung cancer screening completed [address] [place], [address], 06/27/2024 12:55:46 06/28/2024 pharmacologic nuclear stress test completed [address] [place], [address], 07/03/2024 16:43:41 07/05/2024 DEXA completed [address], [address], 07/06/2024 11:22:53 06/28/2024 pharmacologic nuclear stress test completed [address] [place], [address], 07/12/2024 16:46:28 08/01/2024 US, echocardiogram completed [address] [place], [address], 08/02/2024 10:34:37 Procedure Notes None recorded. Medical Equipment None Reported. Allergies Allergen ID Allergen Name Allergen Category Reaction Reaction Severity Criticality Documentation Date Start Date Code Code System Note Provider Name and Address Organization Details Recorded Time 1156 Benadryl medicatio n Not available Not available Not available 12/31/202255672 7 RxNorm MCKALE JACEK [facility] 3 16:55:59 1878 Substance with sulfonami de structure and antibacte rial mechanism of action (substanc e) medicatio n Not available Not available Not available 01/13/2023 43530 8003 [facility]ED 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 3 18:00:19 91168 doxycycli ne Not available Not available Not available Not available 07/19/2023 3640 RxNorm ROSSY WONG [facility] 3 13:14:14 Medications Name Sig Start Date Stop Date Status Note LastModified by Organization Details LastModified Time cyclobenz aprine 10 mg tablet 01/13 completed Not Available Not Available Not Available amoxicill in 500 mg capsule Take 2 capsules twice a day by oral route as directed for 7 days. 10/18 completed Not Available Not Available Not Available cilostazo l 100 mg tablet Take 1 tablet twice a day by oral route as directed for 90 days. 2024 active Not Available Not Available Not Avai lable promethaz ine-DM 6.25 mg-15 mg/5 mL oral syrup TAKE 2 TEASPOON S BY MOUTH THREE TIMES DAILY NEEDED 01/13 completed Not Available Not Available Not Available fluticaso ne 250 mcg-salme terol 50 mcg/dose blistr powdr for inhalatio n Inhale 1 puff twice a day by inhalati on route for 30 days. 2024 active Not Available Not Available Not Avai lable doxycycli ne hyclate 100 mg capsule Take 1 capsule twice a day by oral route for 7 days. 10/18 completed Not Available Not Available Not Available albuterol sulfate 2.5 mg/3 mL (0.083 %) solution for nebulizat ion USE 1 VIAL IN NEBULIZE R 4 TIMES DAILY NEEDED active Not Available Not Available No t Available azithromy marcela 250 mg tablet TAKE 2 TABLETS (500 MG) BY ORAL ROUTE ONCE DAILY FOR 1 DAY THEN 1 TABLET (250 MG) BY ORAL ROUTE ONCE DAILY FOR 4 DAYS 10/19 completed Not Available Not Available Not Available benzonata te 200 mg capsule Take 1 capsule 3 times a day by oral route as needed, for cough. 10/19 completed Not Available Not Available Not Available tolterodi ne ER 4 mg capsule,e xtended release 24 hr daily 10/18 completed vo KM/; Recorded 07/29/20 22 3:53PM by Julio Cesar Dobbs PA-C, Office Visit; Refill Quantity : 30; Capsule; Not Available Not Available Not Available hydrocodo ne 5 mg-acetam inophen 325 mg tablet Take 1 tablet every 6 hours by oral route as needed. 10/18 completed Not Available Not Available Not Available meloxicam 15 mg tablet 09/12 completed Not Available Not Available Not Available prednison e 20 mg tablet TAKE 2 TABLETS BY MOUTH ONCE DAILY FOR 5 DAYS 11/20 completed Not Available Not Available Not Available isosorbid e mononitra te ER 30 mg tablet,ex tended release 24 hr TAKE 1 TABLET EVERY DAY 2023 active Not Available Not Available Not Avai lable lovastati n 40 mg tablet TAKE 1 TABLET EVERY DAY 01/13 completed Not Available Not Available Not Available Accu-Chek Softclix Lancets 11/20 completed Not Available Not Available Not Available penicilli n V potassium 500 mg tablet TAKE 1 TABLET BY MOUTH 4 TIMES DAILY UNTIL GONE 01/13 completed Not Available Not Available Not Available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 right arm;radiates to the left arm Quality:pressure;squee zing;tightness Severity:moderate Onset/Timing:started 1weeks ago; began on ; occurs ; abrupt onset without warning Context:exertional Aggravating Factors:activity;posit ion Episode of chest pain last week while walking her dog. down both arms up into neck. lasted a few seconds. Took a nitro and helped.Had a normal stress test just 3 weeks ago.Had a cardiac cath in 01/15 with < 50% blockage in all her vessels. JULIO CESAR DOBBS PA-C [address] [place], [address], [facility] [place] 07/27/2024 11:08:26 08/16/2024 text/html Colonoscopy ScreeningReported bypatient.GI Symptoms:abdominal pain;diarrhea;constipa tion;rectal bleeding(depends on what she eats) Associated Symptoms:normal appetite; no fever; no chills; no nausea; no vomiting Context:prior examination;history of colon polyps Family History:no colon cancer The patient presents today at the request of {{ Julio Cesar Dobbs#}} for evaluation and discussion of colonoscopy for colon cancer screening. The patient denies any recent abdominal pain, persistent diarrhea, persistent constipation, bloody or dark tarry stools, or mucusy stools. Last Colon Cancer screening: {{ 10+ pt did have polyps at that time #}} Problems with anesthesia in the past: NONE Family History of Colon cancers: NONE Blood Thinners: NONE COPD, pt is on 5LPM at home, pt states she has been having chest pain and pressure today. Getachew Waller MD [address] [place] [address], [phone], [facility] 08/29/2024 00:00:00 09/25/2024 text/html walk in patientp atmanuel is here today for cough, shortness of breath, and congestion that started a couple of days ago, patient is a everyday smoker and gets pneumonia, patient has COPD and wears oxygen daily. Heavy smoker ALYCE NANCY KOROMA [address] [place], [address], [facility], [facility]. 09/25/2024 12:16:13 10/19/2024 text/html COPDReported bypatient.Onset/Timing :multiple times per day Duration:chronic; has noted for years; attacks are frequent Severity:slowly worsening; Uses nebulizer/inhaler an average of 20 times/week lately; admitted to hospital 1 times/year Context:cigarette smoking Alleviating factors:relieved with rest; relieved with oxygen; relieved with bronchodilator Aggravating factors:worse with cigarette smoking;worse with exertion;extreme cold weather Associated Symptoms:fatigue;cough ing up sputum;cough;wheezing; anxiety;chest tightnessNotes:2 recent exacerbations in the last month required prednisoneUpper Respiratory SymptomsReported bypatient.Location:[facility] Quality:productive cough;congested;wheezy cough;nasal discharge Severity:moderate Duration:symptoms lasting over 2 weeks Onset/Timing:gradual Context:no sick contacts; no foreign travel;smoker Alleviating Factors:analgesics; antihistamines Associated Symptoms:shortness of breath;wheezing;diffic ulty breathing at night;fatigue JULIO CESAR DOBBS PA-C [address] [place], [address], [facility] 10/19/2024 10:41:02 OBGyn Episode Ob Episode Information Episode Created Date Number of Fetuses Patient Bloodtype Patient rh Status Prepregnancy Weight lbs Domestic Partner Domestic Partner Phone Father Name Hazardous Material Technician Status 08/16/20 24 1 DELETED Fetus Data First Name Last Name Admitted to NICU Weight (g) Sex Living Outcome Pediatric Complications Fetus ID Race Codes Race Delivery Type [id number] Sage Calculation Initial Sage Date Initial Exam Date Initial Exam Provider Initial Ultrasound Date Last Menstrual Period Date Ultra Sound Weeks Gestation 08/16/2024 0 Eighteen To Twenty Week Sage Update Ultra Sound Date Fundal Height At Umbil Quickening Date Ultra Sound Latest Weeks Gestation Final Sage Confirmed By Final Sage Confirmed Date Final Sage Date Ultra Sound Latest Days Gestation 0 0 Menstrual History Last Menstrual Date Menses Monthly On Bcp Conception Prior Menses Frequency Hcg Plus Date Menarche Onset Age Delivery Information Delivery Date Delivery Type Labor Anesthesia Weeks Gestation Incision Type Labor Labor Length Hrs Delivered By Post Complications Tubal Sterilization Discharge Date Comments Discharge Information Feeding Method Contraceptive Method Maternal HG B and HCT Levels
--- OUTSIDE RECORDS SUMMARY | 2024-11-23 18:16 | XMS_ITS | Encounter Summary ---
Author Organization [facility] Address [address] [place] [address] Care Team Providers Care Public Bath Attendant Name Role Phone Unavailable Primary Care Provider Unavailabl e Encounter Details Date Type Department Care Team (Late st Contact Info) Description 01/17/2017 Lab Requisition [facility] [place] [address] [place] [id number] Colin Gómez DO NO ADDRESS ON FILE Social History Tobacco Use Types Packs/Day Years Used Date Smoking Tobacco: Every Day Cigarettes 1 40 Comments Unknown Sex and Gender Information Value Date Recorded Sex Assigned at Not on file 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 Gender Identity Not on file Sexual Orientation Not on file documented as of this encounter Plan of Treatment Not on file documented as of this encounter Procedures Procedure Name Priority Date/Time Associated Diagnosis Comments TSH Routine 01/17/2017 7:44 PM CDT LIPID PANEL Routine 01/17/2017 7:44 PM CDT documented in this encounter Results * TSH (01/17/2017 7:44 PM CDT) TSH 2.66 0.27 - 4.20 uIU/mL 01/18/2017 12:37 AM CDT [facility] Blood 01/17/2017 7:44 PM CDT 01/17/2017 11:47 PM CDT us Colin Gómez DO CHEMISTRY ORDERABLES Final Resu lt [facility] CLIA # [id number] [address] [address] * (ABNORMAL) LIPID PANEL (01/17/2017 7:44 PM CDT) CHOLESTEROL 189 <200 mg/dL 01/18/2017 12:37 AM CDT [facility] TRIGLYCERIDE 170(H) <150 mg/dL 01/18/2017 12:37 AM CDT [facility] HDL 67(H) 40 - 59 mg/dL 01/18/2017 12:37 AM CDT [facility] LDL CALCULATED 88 <100 mg/dL 01/18/2017 12:37 AM T [facility] NON-HDL CHOLESTEROL 122 <130 mg/dL 01/18/2017 12:37 AM T [facility] Blood 01/17/2017 7:44 PM CDT 01/17/2017 11:47 PM CDT [facility] - 01/18/2017 12:37 AM CDT TOTAL CHOLESTEROL ??mg/dL ??Desirable <200 ??Borderline high [...] Gómez DO CHEMISTRY ORDERABLES Final Resu lt [facility] CLIA # [id number] [address] [address] documented in this encounter Visit Diagnoses Not on filedocumented in this encounter
[2024-11-23] MEDS: acetaminophen 500 mg Tablet PO (21:29)
[2024-11-23] MEDS: guaiFENesin 100 mg/5 mL UDC 10 mL 200 MG PO (21:29)
[2024-11-23] MEDS: lactulose oral liq 20 gm/30 mL UDC PO (22:23)
[2024-11-24] VITALS (11 sets, daily range): BP systolic 130–144; BP diastolic 56–72; PULSE 61–88; RESP 16–28; TEMP 36.4–36.6; O2SAT 93–96
[2024-11-24] MEDS: guaiFENesin 100 mg/5 mL UDC 10 mL 200 MG PO (02:39)
[2024-11-24 03:56] LABS: Basophils % 0.2 %; Eosinophils % 0.1 %; Hematocrit 39.3 % (36-47); Lymphocytes # 1.9 10^3/uL (0.8-4.8); Lymphocytes % 11.9 %; Mean Corpuscular HGB Conc 31.3 g/dL (30-55); Mean Corpuscular Hemoglobin 25.5 pg (27-33); Mean Corpuscular Volume 81.4 fl (85-98); Mean Platelet Volume 10.4 fL (7.4-10.4); Monocytes % 6.2 %; Neutrophils # 13.01 10^3/uL (1.8-7.7); Neutrophils % 81.2 %; Nucleated Red Blood Cells % 0 %; Platelet Count 328 10^3/cmm (157-399); Red Blood Count 4.83 10^6/uL (3.85-5.65); Red Cell Distribution Width 15.5 % (12.1-15.1); White Blood Count 16.02 10^3/uL (3.29-11.43)
[2024-11-24 04:26] LABS: Blood Urea Nitrogen 15 mg/dL (8-23); Calcium 9.4 mg/dL (8.5-10.5); Carbon Dioxide 25 mmol/L (22-29); Chloride 102 mmol/L (98-107); Creatinine Clr Calc Pharmacy 61.5627; Glomerular Filtration Rate 82.7 mL/min (90-130); Glucose 103 mg/dL (65-115); Magnesium 1.9 mg/dL (1.7-2.3); Osmolality Calculated 287 mOsm/kg (285-295); Sodium 138 mmol/L (136-145)
[2024-11-24] MEDS: cefTRIAXone 1,000 mg SDV 1000 MG IVP (05:14)
[2024-11-24] MEDS: ipratropium-albuterol 3 mL Neb INHALATION ×3 (05:42→19:38)
[2024-11-24] MEDS: acetaminophen 500 mg Tablet PO (09:35)
[2024-11-24] MEDS: guaiFENesin-dextromethorphan UDC 10 mL PO ×2 (10:08→20:15)
[2024-11-24] MEDS: morphine IR 15 mg Tablet PO ×2 (10:10→20:15)
[2024-11-24] MEDS: predniSONE 20 mg Tablet 40 MG PO (10:36)
[2024-11-24] MEDS: doxycycline 100 mg Tablet PO ×2 (10:36→17:31)
[2024-11-24] MEDS: metoprolol tartrate 50 mg Tablet PO ×2 (10:37→17:31)
[2024-11-24] MEDS: levothyroxine 50 mcg Tablet PO (10:37)
[2024-11-24] MEDS: clopidogrel 75 mg Tablet PO (10:37)
[2024-11-24] MEDS: isosorbide mononitrate ER 30 mg Tablet PO (10:37)
[2024-11-24] MEDS: aspirin 81 mg EC Tablet PO (10:38)
--- NOTE | 2024-11-24 10:51 | PC.CHAP ---
Pastoral Care Encounter/Spiritual Assessment Type of Contact [] Declined supervisor brake repair visit [] Patient/Family/Request visit [] Outpatient visit [] Follow-up visit [] Physician referral [] Code/Alert [] Routine visit [] Staff referral [] Actively dying [] Patient sleeping [] Family support [] [] Out of room [] Palliative care [] [X] Receiving care in room [] Pre-surgical visit [] Trauma [] Long length of stay [] ICU visit [] Other: Relational/Emotional Strength [] Patient feels connected with others/family/visitors/staff [] Distress [] Loneliness/isolation [] Abandonment Spirituality of Patient [] Person of [place] [] Attends Moravian of their [place] [] Believes in Prayer [] Reads Bible or Hinduism materials [] There are Spiritual issues to be addressed [place]eler Interventions [] Prayer [] Active listening [] Non-anxious presence [] Spiritual/emotional support [] Crisis/trauma care [] Spiritual counseling [] Bereavement support [] Provided bereavement packet [] Provided Bible/devotional materials [] Provided toy/stuffed animal, coloring book to patient or family member [] Provided Communion [] Anointing/[place] [] Salvation [] Completed spiritual assessment [] Other: Impact on Illness or Injury [] Angry [] Fearful [] Anxious [] Often cries [] Exhaustion [] Unable to work [] Unable to attend moravian [] Unable to walk/stand [] Unable to read [] Unable to drive [] Unable to eat/drink [] Unable to sleep [] Unable to be with family [] Patient intubated [] Other: Summary Time spent with patient
--- NOTE | 2024-11-24 15:02 | P.PN_ITS ---
Subjective 2 Subjective: Denies any chest pain at this time. She does have wheezing. She states she has been coughing. She would like to stick to liquid cough medicine. Repeat troponin 40, delta troponin negative. Vitals/I&O/Wt Last Vital Signs Temp 97.7 F 11/24/24 08:00 Pulse 82 11/24/24 08:00 Resp 16 11/24/24 10:10 BP 139/70 11/24/24 08:00 Pulse Ox 93 11/24/24 08:00 O2 Del Method Nasal Cannula 11/24/24 08:00 O2 Flow Rate 5 11/24/24 10:00 11/24/24 11/24/24 11/24/24 06:59 14:59 22:59 Intake Total 360 / 360 Balance 360 / 360 Weight last 48 hrs Weight 76.521 kg Weight 77.292 kg Weight 63.503 kg Physical Exam 2 Narrative: Patient awake and alert No active chest pain Bilateral breath sounds with rhonchi GCS 15 Currently on 5 L Nonfocal neuroexam [facility] AOx4 Euvolemic Data 11/24/24 02:13 11/24/24 02:13 Micro: Microbiology 11/23/24 03:05 Blood Culture - Preliminary Blood NEGATIVE TO DATE 11/23/24 03:00 Blood Culture - Preliminary Blood NEGATIVE TO DATE A&P Assessment and plan (1) Coronary artery disease: (2) Elevated troponin: (3) Chronic respiratory failure with hypoxia and hypercapnia: (4) Pneumonia: Plan Non-STEMI: Start ACS protocol EKG without ischemic or infarctive changes Preserved EF as per previous echo Requested echo Right-sided pneumonia Currently on 5 L No exacerbation from baseline Start antibiotics Active smoker: Smokes 1 pack which she finishes in a month History of right carotid endarterectomy Full code Cardiac diet DVT prophylaxis covered with therapeutic Lovenox 11/24/2024 Continue prednisone 40 daily Will stop therapeutic Lovenox at 48-hour christiano. Will treat NSTEMI medically. Probably demand ischemia. Reviewed cardiology note. Appreciate recommendation. Continue aspirin Plavix, doxycycline, metoprolol to tartrate. Will order flutter valve incentive spirometer today. Leukocytosis most likely secondary to steroid use. If patient improves over the next 24 to 48 hours she may be discharged home. Will need home oxygen evaluation at discharge. PDMP PDMP Reviewed: Not Reviewed Attestations 2 Medical Necessity Statement*: Right-sided pneumonia. Requires flutter valve incentive parameter today. Leukocytosis present today. Will need to recheck labs in AM. Diagnoses Coronary artery disease I25.10 Elevated troponin R79.89 Chronic respiratory failure with hypoxia and hypercapnia J96.11; J96.12 Pneumonia J18.9
[2024-11-24] MEDS: ENOXAPARIN SUBCUT (17:31)
--- NOTE | 2024-11-24 22:41 | PC.NURSE ---
Patient asked for shower at the beginning of the shift. Patient stated she is unable to do it herself and will need help. Informed patient that I would be more than happy to do this or the CANARY BREEDER could help. Due to assisting with other patients, ED admits, med pass, and other tasks with multiple other patients, the CANARY BREEDER and I were unable to have time to help patient with shower until now. Patient now is not wanting a shower, stating that she is ready for bed and she will take one tomorrow.
[2024-11-25] VITALS (13 sets, daily range): BP systolic 109–146; BP diastolic 53–71; PULSE 61–79; RESP 16–20; TEMP 36.4–36.9; O2SAT 92–98
[2024-11-25] MEDS: lanolin oint 7 gm 1 APPLIC TOPICAL (00:08)
[2024-11-25] MEDS: acetaminophen 500 mg Tablet PO (03:31)
[2024-11-25] MEDS: ipratropium-albuterol 3 mL Neb INHALATION ×4 (03:40→21:07)
[2024-11-25 03:59] LABS: Basophils % 0.2 %; Eosinophils % 0.1 %; Hematocrit 38.2 % (36-47); Lymphocytes # 1.4 10^3/uL (0.8-4.8); Lymphocytes % 12.7 %; Mean Corpuscular HGB Conc 31.2 g/dL (30-55); Mean Corpuscular Hemoglobin 25.8 pg (27-33); Mean Corpuscular Volume 82.9 fl (85-98); Mean Platelet Volume 10.4 fL (7.4-10.4); Monocytes # 0.5 10^3/uL (0.2-0.9); Monocytes % 4.1 %; Neutrophils # 9.33 10^3/uL (1.8-7.7); Neutrophils % 82.5 %; Nucleated Red Blood Cells % 0 %; Platelet Count 289 10^3/cmm (157-399); Red Blood Count 4.61 10^6/uL (3.85-5.65); Red Cell Distribution Width 15.9 % (12.1-15.1)
[2024-11-25] MEDS: cefTRIAXone 1,000 mg SDV 1000 MG IVP (04:04)
[2024-11-25] MEDS: ENOXAPARIN SUBCUT (04:04)
[2024-11-25 04:29] LABS: Anion Gap 11.5 (5-19); Blood Urea Nitrogen 15 mg/dL (8-23); Calcium 9.3 mg/dL (8.5-10.5); Carbon Dioxide 30 mmol/L (22-29); Chloride 103 mmol/L (98-107); Creatinine Clr Calc Pharmacy 61.2441; Glomerular Filtration Rate 98.8 mL/min (90-130); Glucose 85 mg/dL (65-115); Osmolality Calculated 290 mOsm/kg (285-295); Potassium 4.5 mmol/L (3.5-5.1); Sodium 140 mmol/L (136-145)
[2024-11-25] MEDS: predniSONE 20 mg Tablet 40 MG PO (09:31)
[2024-11-25] MEDS: clopidogrel 75 mg Tablet PO (09:31)
[2024-11-25] MEDS: levothyroxine 50 mcg Tablet PO (09:31)
[2024-11-25] MEDS: pantoprazole DR 40 mg Tablet PO (09:31)
[2024-11-25] MEDS: metoprolol tartrate 50 mg Tablet PO ×2 (09:31→18:09)
[2024-11-25] MEDS: aspirin 81 mg EC Tablet PO (09:31)
[2024-11-25] MEDS: doxycycline 100 mg Tablet PO ×2 (09:31→18:09)
[2024-11-25] MEDS: isosorbide mononitrate ER 30 mg Tablet PO (09:32)
[2024-11-25] MEDS: guaiFENesin-dextromethorphan UDC 10 mL PO ×2 (09:32→18:09)
--- NOTE | 2024-11-25 13:36 | P.PN_ITS ---
Subjective 2 Subjective: Seen this morning. She states that she has been having irritation in her throat and feels she is very congested unable to cough up any sputum. At home she takes an antihistamine at times. She is on Claritin at home. She also uses Flonase spray when needed. Vitals/I&O/Wt Last Vital Signs Temp 97.9 F 11/25/24 11:08 Pulse 66 11/25/24 13:07 Resp 18 11/25/24 12:58 BP 146/68 11/25/24 11:08 Pulse Ox 95 11/25/24 12:58 O2 Del Method Nasal Cannula 11/25/24 12:58 O2 Flow Rate 5 11/25/24 12:58 11/24/24 11/25/24 11/25/24 22:59 06:59 14:59 Intake Total 480 / 900 480 / 480 Output Total 500 / 500 Balance 480 / 900 -20 / -20 Weight last 48 hrs Weight 73.845 kg Weight 76.521 kg Physical Exam 2 Narrative: Patient awake and alert No active chest pain Bilateral breath sounds with rhonchi, however improving since admission. GCS 15 Currently on 5 L Nonfocal neuroexam [facility] AOx4 Euvolemic Data 11/25/24 02:00 11/25/24 02:00 A&P Assessment and plan (1) Coronary artery disease: (2) Elevated troponin: (3) Chronic respiratory failure with hypoxia and hypercapnia: (4) Pneumonia: Plan Non-STEMI: Start ACS protocol EKG without ischemic or infarctive changes Preserved EF as per previous echo Requested echo Right-sided pneumonia Currently on 5 L No exacerbation from baseline Start antibiotics Active smoker: Smokes 1 pack which she finishes in a month History of right carotid endarterectomy Full code Cardiac diet DVT prophylaxis covered with therapeutic Lovenox 11/24/2024 Continue prednisone 40 daily Will stop therapeutic Lovenox at 48-hour christiano. Will treat NSTEMI medically. Probably demand ischemia. Reviewed cardiology note. Appreciate recommendation. Continue aspirin Plavix, doxycycline, metoprolol to tartrate. Will order flutter valve incentive spirometer today. Leukocytosis most likely secondary to steroid use. If patient improves over the next 24 to 48 hours she may be discharged home. Will need home oxygen evaluation at discharge. 11/25/2024 Continue prednisone 40 daily Therapeutic Lovenox has been stopped. Continue aspirin Plavix doxycycline metoprolol to tartrate. Continue flutter valve, incentive spirometer Leukocytosis improving Most likely plan to discharge in a.m. if continues to improve. Will start cetirizine 10 daily. PDMP PDMP Reviewed: Not Reviewed Attestations 2 Medical Necessity Statement*: Right-sided pneumonia. Has congestion today and has been having very difficult time bringing up phlegm. Diagnoses Coronary artery disease I25.10 Elevated troponin R79.89 Chronic respiratory failure with hypoxia and hypercapnia J96.11; J96.12 Pneumonia J18.9
[2024-11-25] MEDS: cetirizine 10 mg Tablet PO (14:46)
[2024-11-25] MEDS: guaiFENesin 100 mg/5 mL UDC 10 mL 200 MG PO (14:58)
[2024-11-25] MEDS: fluticasone nasal spray 16gm Btl 1 SPRAY NASAL (18:09)
[2024-11-26] VITALS (14 sets, daily range): BP systolic 97–155; BP diastolic 59–81; PULSE 71–91; RESP 16–24; TEMP 36.2–36.9; O2SAT 92–98; BMI 30.2
[2024-11-26 04:16] LABS: Basophils % 0.4 %; Eosinophils % 0.2 %; Hematocrit 36.8 % (36-47); Lymphocytes % 20.1 %; Mean Corpuscular HGB Conc 31.3 g/dL (30-55); Mean Corpuscular Hemoglobin 25.8 pg (27-33); Mean Corpuscular Volume 82.5 fl (85-98); Mean Platelet Volume 10.4 fL (7.4-10.4); Monocytes # 0.7 10^3/uL (0.2-0.9); Neutrophils # 7.32 10^3/uL (1.8-7.7); Neutrophils % 71.9 %; Nucleated Red Blood Cells % 0 %; Platelet Count 268 10^3/cmm (157-399); Red Blood Count 4.46 10^6/uL (3.85-5.65); Red Cell Distribution Width 16.1 % (12.1-15.1); White Blood Count 10.17 10^3/uL (3.29-11.43)
[2024-11-26] MEDS: ipratropium-albuterol 3 mL Neb INHALATION ×4 (04:29→20:29)
[2024-11-26 04:38] LABS: Anion Gap 12.2 (5-19); Blood Urea Nitrogen 16 mg/dL (8-23); Calcium 9.3 mg/dL (8.5-10.5); Carbon Dioxide 31 mmol/L (22-29); Chloride 101 mmol/L (98-107); Creatinine Clr Calc Pharmacy 60.1384; Glomerular Filtration Rate 98.8 mL/min (90-130); Glucose 126 mg/dL (65-115); Osmolality Calculated 293 mOsm/kg (285-295); Potassium 4.2 mmol/L (3.5-5.1); Sodium 140 mmol/L (136-145)
[2024-11-26] MEDS: cefTRIAXone 1,000 mg SDV 1000 MG IVP (05:33)
[2024-11-26] MEDS: doxycycline 100 mg Tablet PO (08:47)
[2024-11-26] MEDS: levothyroxine 50 mcg Tablet PO (08:47)
[2024-11-26] MEDS: clopidogrel 75 mg Tablet PO (08:47)
[2024-11-26] MEDS: aspirin 81 mg EC Tablet PO (08:47)
[2024-11-26] MEDS: metoprolol tartrate 50 mg Tablet PO ×2 (08:47→17:12)
[2024-11-26] MEDS: isosorbide mononitrate ER 30 mg Tablet PO (08:47)
[2024-11-26] MEDS: cetirizine 10 mg Tablet PO (08:47)
[2024-11-26] MEDS: predniSONE 20 mg Tablet 40 MG PO (08:47)
[2024-11-26] MEDS: pantoprazole DR 40 mg Tablet PO (08:48)
[2024-11-26] MEDS: acetaminophen 500 mg Tablet PO (09:45)
[2024-11-26] MEDS: fluticasone nasal spray 16gm Btl 1 SPRAY NASAL ×2 (09:45→17:12)
--- NOTE | 2024-11-26 12:26 | PC.SOCIAL ---
IMM Updated Updated pt on IMM. No questions voiced. Provided pt a copy. Initialed, dated, & timed a copy & placed in chart.
--- NOTE | 2024-11-26 16:14 | P.PN_ITS ---
Subjective 2 Subjective: Patient is currently on 6 L/min supplemental O2. States she is having bouts of coughing and bringing up more phlegm compared to yesterday.She has diffuse wheezing to auscultation bilaterally. Medications: Reviewed: Yes Vitals/I&O/Wt Last Vital Signs Temp 98.0 F 11/26/24 16:04 Pulse 80 11/26/24 16:04 Resp 20 H 11/26/24 16:04 BP 97/59 11/26/24 16:04 Pulse Ox 95 11/26/24 16:04 O2 Del Method Nasal Cannula 11/26/24 16:04 O2 Flow Rate 5 11/26/24 13:31 11/26/24 11/26/24 11/26/24 06:59 14:59 22:59 Intake Total 480 / 480 Balance 480 / 480 Weight last 48 hrs Weight 72.575 kg Weight 73.845 kg Physical Exam 2 Narrative: General: No acute distress, AO x3 HEENT: PERRLA, pupils bilaterally equal and reactive, pallors not present Chest: Diffuse wheezing to auscultation bilaterally CVS: S1-S2 regular, no murmurs, no tachycardia, no gallops, no rubs Abdomen: Soft, nontender, no organomegaly, bowel sounds present Neuro: No focal deficits, no facial deformity, AO x3, power 5/5 in all limbs Data 11/26/24 01:55 11/26/24 01:55 A&P Assessment and plan (1) Coronary artery disease: (2) Elevated troponin: (3) Chronic respiratory failure with hypoxia and hypercapnia: (4) Pneumonia: Plan Non-STEMI: Start ACS protocol EKG without ischemic or infarctive changes Preserved EF as per previous echo Requested echo Right-sided pneumonia Currently on 5 L No exacerbation from baseline Start antibiotics Active smoker: Smokes 1 pack which she finishes in a month History of right carotid endarterectomy Full code Cardiac diet DVT prophylaxis covered with therapeutic Lovenox 11/24/2024 Continue prednisone 40 daily Will stop therapeutic Lovenox at 48-hour christiano. Will treat NSTEMI medically. Probably demand ischemia. Reviewed cardiology note. Appreciate recommendation. Continue aspirin Plavix, doxycycline, metoprolol to tartrate. Will order flutter valve incentive spirometer today. Leukocytosis most likely secondary to steroid use. If patient improves over the next 24 to 48 hours she may be discharged home. Will need home oxygen evaluation at discharge. 11/25/2024 Continue prednisone 40 daily Therapeutic Lovenox has been stopped. Continue aspirin Plavix doxycycline metoprolol to tartrate. Continue flutter valve, incentive spirometer Leukocytosis improving Most likely plan to discharge in a.m. if continues to improve. Will start cetirizine 10 daily. November 26, 2024 Patient reports worsening cough and increased expectoration today. O2 requirement at 6 L/min. Additional dose of IV Methylpred 125 mg today. Diffuse wheezing to auscultation noted. Currently on ceftriaxone and doxycycline. Sputum culture ordered today. Discontinue doxycycline, changed to azithromycin. Mild troponin leak. Mildly positive delta is noted upon admission. Patient denies any current chest pain. Low probability of ACS, suspect type II [place] related to right lower lobe pneumonia. Awaiting final cardiology recommendations. Review of chart shows patient had a stress test in June 2024 without overt reversible ischemia. PDMP PDMP Reviewed: Not Reviewed Attestations 2 Medical Necessity Statement*: Additional IV steroids today. Sputum culture. Change atypical coverage. Check MRSA nasal screen to assess if patient may need additional MRSA coverage.Awaiting final cardiology recommendations with regards to ischemic evaluation Coding Level of Care Code Acute Code for Chg Fwd High MDM includes number and complexity of problems actively addressed during encounter, amount and/or complexity of data reviewed/ordered and described risk of complication, morbidity or mortality of management as documented Diagnoses Coronary artery disease I25.10 Elevated troponin R79.89 Chronic respiratory failure with hypoxia and hypercapnia J96.11; J96.12 Pneumonia J18.9
[2024-11-26] MEDS: methylPREDNISolone sod succ 125 mg/2 mL INJ IVP (17:12)
[2024-11-27] VITALS (25 sets, daily range): BP systolic 98–144; BP diastolic 59–84; PULSE 63–88; RESP 14–23; TEMP 36.7–36.9; O2SAT 87–98
[2024-11-27] MEDS: ipratropium-albuterol 3 mL Neb INHALATION ×4 (02:36→20:52)
[2024-11-27] MEDS: cefTRIAXone 1,000 mg SDV 1000 MG IVP (04:41)
[2024-11-27 05:13] LABS: Basophils % 0.2 %; Hematocrit 41.3 % (36-47); Lymphocytes # 0.9 10^3/uL (0.8-4.8); Lymphocytes % 8.8 %; Mean Corpuscular HGB Conc 31.7 g/dL (30-55); Mean Corpuscular Hemoglobin 25.7 pg (27-33); Mean Platelet Volume 10.1 fL (7.4-10.4); Monocytes # 0.2 10^3/uL (0.2-0.9); Neutrophils # 9.08 10^3/uL (1.8-7.7); Neutrophils % 88.3 %; Nucleated Red Blood Cells % 0 %; Platelet Count 357 10^3/cmm (157-399); Red Cell Distribution Width 15.8 % (12.1-15.1); White Blood Count 10.28 10^3/uL (3.29-11.43)
[2024-11-27 05:42] LABS: Alanine Aminotransferase 57 U/L (0-33); Alkaline Phosphatase 90 U/L (35-105); Aspartate Amino Transferase 37 U/L (0-32); Blood Urea Nitrogen 17 mg/dL (8-23); Calcium 9.9 mg/dL (8.5-10.5); Carbon Dioxide 30 mmol/L (22-29); Chloride 99 mmol/L (98-107); Creatinine Clr Calc Pharmacy 60.0446; Globulin 3.3 g/dL (1.3-4.6); Glucose 145 mg/dL (65-115); Osmolality Calculated 292 mOsm/kg (285-295); Sodium 139 mmol/L (136-145); Total Bilirubin 0.2 mg/dL (0.15-1.2); Total Protein 7.3 g/dL (6.6-8.7)
[2024-11-27 05:50] LABS: Anion Gap 14.3 (5-19); Potassium 4.3 mmol/L (3.5-5.1)
[2024-11-27] MEDS: budesonide 0.5 mg/2 mL Neb INHALATION ×2 (07:31→20:52)
[2024-11-27] MEDS: isosorbide mononitrate ER 30 mg Tablet PO (08:36)
[2024-11-27] MEDS: predniSONE 20 mg Tablet 40 MG PO (08:36)
[2024-11-27] MEDS: pantoprazole DR 40 mg Tablet PO (08:36)
[2024-11-27] MEDS: metoprolol tartrate 50 mg Tablet PO ×2 (08:36→16:50)
[2024-11-27] MEDS: aspirin 81 mg EC Tablet PO (08:36)
[2024-11-27] MEDS: fluticasone nasal spray 16gm Btl 1 SPRAY NASAL ×2 (08:37→16:51)
[2024-11-27] MEDS: clopidogrel 75 mg Tablet PO (08:37)
[2024-11-27] MEDS: levothyroxine 50 mcg Tablet PO (08:37)
[2024-11-27] MEDS: cetirizine 10 mg Tablet PO (08:37)
--- NOTE | 2024-11-27 09:51 | W.PM.OPSUD ---
Surgery/Procedure H&P Update DATE OF PROCEDURE: November 27, 2024 DATE H&P PERFORMED: 11/23/24 H&P UPDATE INFORMATION: I have reviewed H&P completed within last 30 days, I have examined patient prior to procedure and Changes to prior documentation as noted here CHANGES TO PREVIOUS DOCUMENTATION: Patient had significant delta on troponin along with chest pain. Findings consistent with NSTEMI. At time of presentation had shortness of breath and substernal chest discomfort. Plan for coronary angiogram with possible PCI. PREOP DIAGNOSIS: NSTEMI PRIMARY INDICATION FOR PROCEDURE: NSTEMI PLANNED PROCEDURE: Left heart cath with possible percutaneous coronary intervention PATIENT REASSESSED PRIOR TO SEDATION, WITH NO CHANGE NOTED: Yes PHYSICAL EXAM: alert, oriented x 3 and regular rate & rhythm OTHER PERTINENT EXAM FINDINGS: Mild wheezing AIRWAY EVAL/ANESTHESIA PLAN: normal airway, ASA III, Local Anesthesia and Risks, benefits & alternatives of sedation and/or procedure discussed ADDITIONAL INFORMATION: Moderate sedation
--- NOTE | 2024-11-27 10:18 | PM.PROC ---
Procedure Note: Date of procedure: 11/27/24 Pre-procedure diagnosis: NSTEMI Post-procedure diagnosis: other Procedure: Left main artery is patent. LAD is a small sized vessel with proximal mild to moderate disease. Left circumflex artery is a large vessel with no significant disease. Ramus artery is patent. RCA is small to medium sized vessel with mild to moderate disease. Aggressive medical therapy Performing Provider: Marc Brewer Estimated blood loss (mL): 10 Complications: None Condition: stable Disposition: floor Coding Level of Care Code Acute Code for Tevin Gonzalez
--- NOTE | 2024-11-27 10:30 | PC.NURSE ---
Cath Recovery Note Received patient from microbiology lab assistant in CPRU 4. Awake, alert, and oriented. Breathing even and non-labored on 3L NC. Denies pain. TR band in place, site asymptomatic. No signs of bleeding or hematoma. Placed on bedside louver door assembler. Pt to return to inpatient room after cath recovery. Call light in reach.
[2024-11-27] MEDS: azithromycin 250 mg Tablet 500 MG PO (12:26)
--- NOTE | 2024-11-27 13:58 | XACV_ITS ---
Exam Room: 2 Ht: 155 cm Wt: 73 kg BSA: 1.81 m2 Gender: Female : 1955 Any Known Allergies: Sulfa Exam Priority: Routine Procedure(s): Procedure Description: Diagnostic procedure Procedure Description: Left Heart Catheterization Procedure Description: Left ventriculography Procedure Description: Coronary Angiography Diagnostic Cath Status: Elective Diagnostic Findings * Left main artery is patent. LAD is a small sized vessel with proximal mild to moderate disease. Left circumflex artery is a large, dominant vessel with no significant disease. Ramus artery is patent. RCA is small to medium sized vessel with mild to moderate disease. . * Coronary angiography shows left dominance. Conclusions 1. Left main artery is patent. LAD is a small sized vessel with proximal mild to moderate disease. Left circumflex artery is a large, dominant vessel with no significant disease. Ramus artery is patent. RCA is small to medium sized vessel with mild to moderate disease. . 2. Non-obstructive coronary artery disease. 3. Normal left ventricular systolic function. Ejection fraction of 60%. Recommendations * Aggressive medical therapy for coronary artery disease. * Outpatient cardiology follow up in 2-4 weeks. Interventional RX Recommendation: medical therapy and/or counseling Diagnostic RX Recommendation: medical therapy and/or counseling Anticoagulation: Heparin Ventriculography Ejection Fraction: 60.0 % Pressures Phase:Rest AO : 107 / 65 ( 84 ) @ 10:03:00 AM 111 / 68 ( 88 ) @ 10:06:00 AM 120 / 56 ( 84 ) @ 10:12:00 AM 125 / 58 ( 87 ) @ 10:12:00 AM LV : 132 / -3 / 17 @ 10:11:00 AM 129 / 0 / 17 @ 10:12:00 AM 128 / 0 / 18 @ 10:12:00 AM Valves Phase:DefaultPhase AV : 5.0 @ 10:18:09 AM AV Mean Gradient: 10.0 @ 10:18:09 AM Clinical Evaluation EBL: 5mL-10mL Procedural Details Current Diagnosis : NSTEMI. Pre-Procedure Time Out. Identified patient by full name and date of as verbalized by the patient/guarantor. Does the consent match the physician's order: Yes. Accurate & Complete Informed Consent: Yes. Inpatient/Outpatient History & Physical on Chart: Yes. If H&P is completed, is and addenduem needed: No; If yes, is the addendum complete: N/A. Visualize and Verify Site with Patient/Guarantor: N/A. Relevant Radiology Images available: Yes. Pre-op teaching completed and patient verbalized understanding. The risks, benefits, and alternatives of sedation and/or procedure were discussed by physician. The patient agrees to continue. Procedure started. [facility] Clinical Fraility Score: 3: Managing Well. Sample Stitcher Indications: ACS > 24 hours. Chest Pain Symptom Assessment: Typical Angina Symptoms. Correct patient, site and procedure confirmed by cath team. Current diagnosis: NSTEMI. PERRLA. Strong, equal hand marble installation helper bilaterally. Lungs clear x 5 lobes. IV Site on Arrival: 18 gauge in the left anticubital. IV Fluids: 0.9% NaCl at KVO. 0 mL infused prior to clinical laboratory director. Oxygen started at 2liters/min via nasal canula. right groin was prepped with chloroprep then draped in the usual sterile fashion. right radial was prepped with chloroprep then draped in the usual sterile fashion. Baseline sample Acquired. HR: 67 BPM. Physician arrived. Physician scrubbed in. Immediate Pre-Procedure Time Out. Correct Patient: Yes; Correct Procedure: Yes; Correct Site: Yes; Correct Patient Position: Yes; Correct Supplies: Yes; Dried Flammable Prep: Yes; Blood Products Available: N/A;. Lidocaine 1% infiltrated to the right radial. Arterial access obtained. A 5 kyrgyz TIG catheter in over wire. Multiple views taken of left coronary artery. Catheter redirected to the RCA. Multiple views taken of right coronary artery. Catheter removed over the exchange wire. A 5 k[place] Angled Pig catheter in over wire. EDP Sample taken: LV 132/-4,17; HR: 74 BPM; SpO2: 95%. LV gram performed in PAYNE @ 10 mL/second for a total of 30 mL. EDP Sample taken: LV 129/0,17; HR: 72 BPM; SpO2: 95%. Pullback taken: LV 128/0,18; AO 120/56(84); Mean: 10mmHg, Peak to Peak: 5mmHg, SEP: 17sec/min; HR: 66 BPM; SpO2: 95%. Catheter removed over the exchange wire. A TR Band was successful obtaining hemostatsis at the Right Radial artery insertion site. Vital chart was stopped. Post Procedure: Pulses reassessed and unchanged. PERRLA. Strong, equal hand marble installation helper bilaterally. No VTE prophylaxis required. Post-op diagnosis: Moderate CAD. Medication's Wasted: Lidocaine 1% = 18 mL. Medication's Wasted: Other = Benadryl 50 mg. Medication's Wasted: Other = Fentanyl 75 mcg. Medication's Wasted: Heparin = 1000 units. Total IV fluids: 37 mL. Complications: None. Estimated blood loss: 5mL-10mL. Responsiveness - Normal response to verbal stimuli; alert and oriented, PERRLA. Airway - Unaffected, no intervention required; spontaneous ventilation. Circulation: W/N/L, pulses unchanged. Nausea/Vomiting: No. Procedure completed. Patient transferred by bed to CPRU. Access Site Site: Right Radial artery Sheath Size: 6 Fr Hemostasis Method: TR Band Hemostasis Success: Successful Procedure Medications Start: 9:54 AM Stop: 9:54 AM Medication: Versed 1 mg and Fentanyl 25 mcg Amount: 1 Route: I.V. Start: 10:00 AM Stop: 10:00 AM Medication: Nitrogylcerin Amount: 200 mcg Route: I.A. Start: 10:00 AM Stop: 10:00 AM Medication: Versed Amount: 1 mg Route: I.V. Start: 10:02 AM Stop: 10:02 AM Medication: Heparin Amount: 5000 units Route: I.V. I, the attending physician, have reviewed and verified all procedure medications. Yes, all medications given per verbal order History/Risk Factors Hypertension: Yes Dyslipidemia: No Peripheral Arterial Disease (PAD): Yes Myocardial Infarction (AL): No Obesity: No Renal Disease: No Tobacco Use: Current/Recent(w/in 1 year) Prior Interventions PCI: No CABG: No Valve Surgery: No Report Signatures Finalized by Marc Brewer MD on 12/10/2024 10:04 PM
--- NOTE | 2024-11-27 14:59 | P.PN_ITS ---
Subjective 2 Subjective: Status post coronary angiogram today. Details as below. On 3 to 4 L/min supplemental O2 today. Still with bouts of cough and scattered wheezing. Medications: Reviewed: Yes Vitals/I&O/Wt Last Vital Signs Temp 98.0 F 11/27/24 08:00 Pulse 73 11/27/24 13:42 Resp 20 H 11/27/24 13:42 BP 127/64 11/27/24 13:30 Pulse Ox 93 11/27/24 13:42 O2 Del Method Nasal Cannula 11/27/24 13:42 O2 Flow Rate 3 11/27/24 13:42 11/26/24 11/27/24 11/27/24 22:59 06:59 14:59 Intake Total 240 / 720 0 / 720 120 / 120 Output Total 300 / 300 800 / 1100 Balance -60 / 420 -800 / -380 120 / 120 Weight last 48 hrs Weight 73.618 kg Weight 72.575 kg Physical Exam 2 Narrative: General: No acute distress, AO x3 HEENT: PERRLA, pupils bilaterally equal and reactive, pallors not present Chest: Diffuse wheezing to auscultation bilaterally CVS: S1-S2 regular, no murmurs, no tachycardia, no gallops, no rubs Abdomen: Soft, nontender, no organomegaly, bowel sounds present Neuro: No focal deficits, no facial deformity, AO x3, power 5/5 in all limbs Data 11/27/24 04:38 11/27/24 04:38 Micro: Microbiology 11/26/24 20:35 Gram Stain - Final Sputum - Expectorated Sputum A&P Assessment and plan (1) Coronary artery disease: (2) Elevated troponin: (3) Chronic respiratory failure with hypoxia and hypercapnia: (4) Pneumonia: Plan Non-STEMI: Start ACS protocol EKG without ischemic or infarctive changes Preserved EF as per previous echo Requested echo Right-sided pneumonia Currently on 5 L No exacerbation from baseline Start antibiotics Active smoker: Smokes 1 pack which she finishes in a month History of right carotid endarterectomy Full code Cardiac diet DVT prophylaxis covered with therapeutic Lovenox 11/24/2024 Continue prednisone 40 daily Will stop therapeutic Lovenox at 48-hour christiano. Will treat NSTEMI medically. Probably demand ischemia. Reviewed cardiology note. Appreciate recommendation. Continue aspirin Plavix, doxycycline, metoprolol to tartrate. Will order flutter valve incentive spirometer today. Leukocytosis most likely secondary to steroid use. If patient improves over the next 24 to 48 hours she may be discharged home. Will need home oxygen evaluation at discharge. 11/25/2024 Continue prednisone 40 daily Therapeutic Lovenox has been stopped. Continue aspirin Plavix doxycycline metoprolol to tartrate. Continue flutter valve, incentive spirometer Leukocytosis improving Most likely plan to discharge in a.m. if continues to improve. Will start cetirizine 10 daily. November 26, 2024 Patient reports worsening cough and increased expectoration today. O2 requirement at 6 L/min. Additional dose of IV Methylpred 125 mg today. Diffuse wheezing to auscultation noted. Currently on ceftriaxone and doxycycline. Sputum culture ordered today. Discontinue doxycycline, changed to azithromycin. Mild troponin leak. Mildly positive delta is noted upon admission. Patient denies any current chest pain. Low probability of ACS, suspect type II MO related to right lower lobe pneumonia. Awaiting final cardiology recommendations. Review of chart shows patient had a stress test in June 2024 without overt reversible ischemia. November 27, 2024 Status postcoronary angiogram today showing that left main artery is patent. LAD is a small sized vessel with proximal mild to moderate disease. Left circumflex artery is a large vessel with no significant disease. Ramus artery is patent. RCA is small to medium sized vessel with mild to moderate disease. medical therapy is recommended per cardiology. Continue aspirin 81 mg p.o. daily. Leukocytosis remains stable. She is afebrile. Continue ceftriaxone 1 g IV every 24 hours. Continue azithromycin 500 mg p.o. daily. Sputum culture thus far showing few GPC's and GNR's, gram-negative cocci. Pending final cultures. Blood cultures so far negative to date. Diffuse scattered wheezing still persisting. Additional dose of methylprednisolone IV today. Anticipate discharge in the upcoming 24 to 48 hours if continues to improve. Will optimize inhalers at the time of discharge to include Advair, Spiriva and as needed albuterol. PDMP PDMP Reviewed: Not Reviewed Attestations 2 Medical Necessity Statement*: Status post coronary angiogram today, additional dose of iv steroids Coding Level of Care Code Acute Code for Chg Fwd High MDM includes number and complexity of problems actively addressed during encounter, amount and/or complexity of data reviewed/ordered and described risk of complication, morbidity or mortality of management as documented Diagnoses Coronary artery disease I25.10 Elevated troponin R79.89 Chronic respiratory failure with hypoxia and hypercapnia J96.11; J96.12 Pneumonia J18.9
[2024-11-27] MEDS: methylPREDNISolone sod succ 40 mg/mL INJ IVP (16:02)
[2024-11-27 19:45] LABS: MRSA PCR OZH (swab) NOT DETECTED (Not Detecte)
[2024-11-28 02:15] VITALS: PULSE 78; RESP 24; O2SAT 93
[2024-11-28] MEDS: ipratropium-albuterol 3 mL Neb INHALATION ×2 (02:16→08:45)
[2024-11-28] MEDS: acetaminophen 500 mg Tablet PO (03:04)
[2024-11-28 03:38] VITALS: BP 144/71; PULSE 74; RESP 18; TEMP 36.5; O2SAT 92
[2024-11-28] MEDS: cefTRIAXone 1,000 mg SDV 1000 MG IVP (05:05)
[2024-11-28 05:07] LABS: Alanine Aminotransferase 68 U/L (0-33); Albumin Level 3.5 g/dL (3.5-5.2); Alkaline Phosphatase 82 U/L (35-105); Blood Urea Nitrogen 20 mg/dL (8-23); Calcium 9.1 mg/dL (8.5-10.5); Carbon Dioxide 26 mmol/L (22-29); Chloride 101 mmol/L (98-107); Creatinine Clr Calc Pharmacy 60.2132; Globulin 2.9 g/dL (1.3-4.6); Glomerular Filtration Rate 98.8 mL/min (90-130); Glucose 148 mg/dL (65-115); Osmolality Calculated 291 mOsm/kg (285-295); Sodium 138 mmol/L (136-145); Total Bilirubin 0.2 mg/dL (0.15-1.2); Total Protein 6.4 g/dL (6.6-8.7)
[2024-11-28 05:08] LABS: Anion Gap 14.9 (5-19); Aspartate Amino Transferase 41 U/L (0-32); Potassium 3.9 mmol/L (3.5-5.1)
[2024-11-28 05:12] LABS: Basophils % 0.1 %; Eosinophils % 0.1 %; Lymphocytes # 2.1 10^3/uL (0.8-4.8); Lymphocytes % 14.7 %; Mean Corpuscular HGB Conc 31.8 g/dL (30-55); Mean Corpuscular Hemoglobin 25.6 pg (27-33); Mean Corpuscular Volume 80.4 fl (85-98); Mean Platelet Volume 10.2 fL (7.4-10.4); Monocytes # 0.9 10^3/uL (0.2-0.9); Monocytes % 6.5 %; Neutrophils # 10.93 10^3/uL (1.8-7.7); Neutrophils % 78.1 %; Nucleated Red Blood Cells % 0 %; Platelet Count 310 10^3/cmm (157-399); Red Blood Count 4.85 10^6/uL (3.85-5.65); Red Cell Distribution Width 15.9 % (12.1-15.1); Slide Review Slide Review Perform; White Blood Count 13.99 10^3/uL (3.29-11.43)
[2024-11-28 07:33] VITALS: BP 163/80; PULSE 73; RESP 18; TEMP 36.5; O2SAT 96
[2024-11-28] MEDS: fluticasone nasal spray 16gm Btl 1 SPRAY NASAL (08:25)
[2024-11-28] MEDS: levothyroxine 50 mcg Tablet PO (08:26)
[2024-11-28] MEDS: predniSONE 20 mg Tablet 40 MG PO (08:26)
[2024-11-28] MEDS: azithromycin 250 mg Tablet 500 MG PO (08:26)
[2024-11-28] MEDS: isosorbide mononitrate ER 30 mg Tablet PO (08:27)
[2024-11-28] MEDS: aspirin 81 mg EC Tablet PO (08:27)
[2024-11-28] MEDS: pantoprazole DR 40 mg Tablet PO (08:27)
[2024-11-28] MEDS: cetirizine 10 mg Tablet PO (08:27)
[2024-11-28] MEDS: clopidogrel 75 mg Tablet PO (08:27)
[2024-11-28] MEDS: metoprolol tartrate 50 mg Tablet PO (08:28)
[2024-11-28] MEDS: budesonide 0.5 mg/2 mL Neb INHALATION (08:45)
--- NOTE | 2024-11-28 08:45 | P.PN_ITS ---
<Statement entered by Marc Brewer M.D - 11/30/24 21:33> Patient was cared for in conjunction with an advanced practice practitioner. I personally reviewed the chart and all pertinent data including imaging, telemetry, and laboratory results. I discussed the patient in detail with the advanced practice practitioner. Please see their note for complete progress note, results and agreed upon plan of care for the patient. Subjective 2 Subjective: She underwent coronary angiogram yesterday for NSTEMI, showing mild to moderate nonobstructive CAD. Medical management advised. No complications with right radial cath site. No chest pain since procedure. Blood pressure has been well- controlled. Continue aspirin, Plavix, isosorbide mononitrate, metoprolol. Vitals/I&O/Wt Last Vital Signs Temp 98.5 F 11/28/24 12:00 Pulse 69 11/28/24 12:00 Resp 20 H 11/28/24 12:00 BP 113/61 11/28/24 12:00 Pulse Ox 94 11/28/24 12:00 O2 Del Method Nasal Cannula 11/28/24 12:00 O2 Flow Rate 5 11/28/24 08:47 11/28/24 11/28/24 11/28/24 06:59 14:59 22:59 Intake Total 0 / 880 480 / 480 Output Total 300 / 300 Balance -300 / 580 480 / 480 Weight last 48 hrs Weight 163 lb 3.2 oz Weight 162 lb 4.8 oz Physical Exam 2 Const: COMMON NORMALS: no acute distress and patient oriented x3 GENERAL APPEARANCE: cooperative and comfortable ORIENTATION/CONSCIOUSNESS: Yes awake, Yes oriented to person, Yes oriented to place and Yes oriented to time Chest: COMMONS NORMALS: normal inspection of the chest and normal palpation of entire chest wall CHEST: Yes Symmetrical chest wall rise Resp: COMMON NORMALS: normal respiratory effort, No retractions, No use of accessory muscles and clear to auscultation bilaterally EFFORT & INSPECTION: Yes symmetric chest movement AUSCULTATION: clear to auscultation bilaterally Cardio: COMMON NORMALS: regular rate, regular rhythm, S1 normal heart sound present, S2 normal heart sound present, No gallops present (Cardio), No clicks present (Cardio), No murmurs present (Cardio) and No rub (Cardio) RATE: r egular rate RHYTHM: regular rhythm HEART SOUNDS: S1 normal heart sound present and S2 normal heart sound present PERIPHERAL PULSES: radial pulses present Extremity: COMMON NORMALS: no pedal edema Neuro: COMMON NORMALS: patient oriented x3 and moves all extremities S ENSORIUM/ORIENTATION: Yes oriented to person, Yes oriented to place and Yes oriented to time Data 11/28/24 04:39 11/28/24 04:39 Micro: Microbiology 11/23/24 03:05 Blood Culture - Final Blood NO GROWTH AFTER 5 DAYS 11/23/24 03:00 Blood Culture - Final Blood NO GROWTH AFTER 5 DAYS 11/26/24 20:35 Gram Stain - Final Sputum - Expectorated Sputum A&P Assessment and plan (1) Elevated troponin: (2) Coronary artery disease: (3) Benign essential HTN: (4) Hyperlipemia: Qualifiers: Hyperlipidemia type: mixed hyperlipidemia Qualified Code(s): E78.2 - Mixed hyperlipidemia Plan Medical management of mild to moderate nonobstructive CAD. Okay to discharge home from cardiology standpoint when okay with hospitalist. Continue aspirin, Plavix, Imdur, metoprolol, statin. Follow-up in cardiology clinic in 7 to 10 days. PDMP PDMP Reviewed: Not Reviewed Attestations 2 Medical Necessity Statement*: per hospitalist Coding Level of Care Code Acute Code for Chg Fwd Diagnoses Elevated troponin R79.89 Coronary artery disease I25.10 Benign essential HTN I10 Mixed hyperlipidemia E78.2 Hyperlipidemia type: mixed hyperlipidemia
[2024-11-28 08:47] VITALS: PULSE 90; RESP 20; O2SAT 93
--- NOTE | 2024-11-28 10:03 | PC.SOCIAL ---
IMM Updated Updated pt on IMM. No questions voiced. Provided pt a copy. Initialed, dated, & timed copy in chart.
[2024-11-28 12:00] VITALS: BP 113/61; PULSE 69; RESP 20; TEMP 36.9; O2SAT 94
--- NOTE | 2024-11-28 13:42 | P.DS_ITS ---
Discharge Providers Date of Admission: 11/23/24 08:20 Date of Discharge: November 28, 2024 Attending Provider at Admission: Shantel Yap MD Attending Provider at Discharge: Jessica Torres MD Primary Care Provider: Katie Dobbs Diagnoses at Discharge Discharge Diagnosis (1) Coronary artery disease: Status: Acute (2) Elevated troponin: Status: Acute (3) Chronic respiratory failure with hypoxia and hypercapnia: Status: Acute (4) Pneumonia: Status: Acute Reason for Visit Reason for Visit: SOB Brief History: Cinthia Palacios is a 69 year old female chronic hypoxia 5 L baseline, diastolic CHF, active smoker, presented with chief complaint of worsening of shortness of breath.Workup in the ER revealed right-sided pneumonia and elevated delta troponin for which she was started on ACS protocol. She was evaluated by cardiology the next day, troponin elevation was thought to be related to type II CA related to acute infection. EKG did not show any acute ST-T wave changes. Due to persisting intermittent chest discomfort she eventually underwent a cardiac cath which showed Left main artery is patent. LAD is a small sized vessel with proximal mild to moderate disease. Left circumflex artery is a large vessel with no significant disease. Ramus artery is patent. RCA is small to medium sized vessel with mild to moderate disease. Medical therapy was recommended per cardiology. For her right lower lobe pneumonia she was started on treatment with ceftriaxone and doxycycline, atypical coverage was continued later with azithrom ycin. She had a COPD exacerbation likely triggered by the acute infection. She received scheduled nebulization with DuoNeb, budesonide and both IV and oral steroids for treatment. She is on 5 L/min supplemental O2 today which is her baseline requirement. Her chest has less wheezing. She is overall clinically improved. She is being discharged today in stable condition. Recommended to continue prednisone, levofloxacin, optimize inhalers with use of Advair Spiriva and as needed albuterol at home. Physical Exam Narrative: General: No acute distress, AO x3 HEENT: PERRLA, pupils bilaterally equal and reactive, pallors not present Chest: Scattered wheezing bilaterally, improved compared to prior exams CVS: S1-S2 regular, no murmurs, no tachycardia, no gallops, no rubs Abdomen: Soft, nontender, no organomegaly, bowel sounds present Neuro: No focal deficits, no facial deformity, AO x3, power 5/5 in all limbs Discharge Data Studies Completed and Pending Completed Studies During Hospitalization Category Date Time Status XR chest 1V portable [id number] Stat Exams 11/23/24 02:28 Completed CV. 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 Correlate clinically. Laboratory Results WBC 13.99 10^3/uL (3.29-11.43) H 11/28/24 04:39 RBC 4.85 10^6/uL (3.85-5.65) 11/28/24 04:39 Hgb 12.40 g/dL (11.27-16.99) 11/28/24 04:39 Hct 39.0 % (36-47) 11/28/24 04:39 MCV 80.4 fl (85-98) L 11/28/24 04:39 MCH 25.6 pg (27-33) L 11/28/24 04:39 MCHC 31.8 g/dL (30-55) 11/28/24 04:39 RDW 15.9 % (12.1-15.1) H 11/28/24 04:39 Plt Count 310 10^3/cmm (157-399) 11/28/24 04:39 MPV 10.2 fL (7.4-10.4) 11/28/24 04:39 Neut % (Auto) 78.1 % 11/28/24 04:39 Lymph % (Auto) 14.7 % 11/28/24 04:39 [place] % (Auto) 6.5 % 11/28/24 04:39 Eos % (Auto) 0.1 % 11/28/24 04:39 Baso % (Auto) 0.1 % 11/28/24 04:39 Neut # (Auto) 10.93 10^3/uL (1.8-7.7) H 11/28/24 04:39 Lymph # (Auto) 2.1 10^3/uL (0.8-4.8) 11/28/24 04:39 [place] # (Auto) 0.9 10^3/uL (0.2-0.9) 11/28/24 04:39 Eos # (Auto) 0.0 10^3/uL (0.0-0.8) 11/28/24 04:39 Baso # (Auto) 0.0 10^3/uL (0.0-0.1) 11/28/24 04:39 Nucleated RBC % (auto) 0 % 11/28/24 04:39 Nucleated RBCs # 0.0 /100WBC 11/28/24 04:39 D-Dimer 0.87 ug/mLFEU (0-0.59) H 11/23/24 03:00 Specimen Type Arterial 11/23/24 02:55 Sample Site Radial, left 11/23/24 02:55 ABG pH 7.38 (7.35-7.45) 11/23/24 02:55 ABG pCO2 47.4 mmHg (35-45) H 11/23/24 02:55 ABG pO2 56.8 mmHg (80.0-100.0) L 11/23/24 02:55 ABG HCO3 28.2 mmol/L (22-26) H 11/23/24 02:55 ABG O2 Saturation 90.7 11/23/24 02:55 ABG Base Excess 2.4 mmol/L (-2.0-2.0) H 11/23/24 02:55 Virgilio Test Pos 11/23/24 02:55 A-a O2 Gradient 4.5 mmHg (5-10) L 11/23/24 02:55 Hematocrit 41.1 % (37-47) 11/23/24 02:55 Hgb O2 Saturation 87.6 % (95-100) L 11/23/24 02:55 Carboxyhemoglobin 2.5 %THgb (0.4-20.1) 11/23/24 02:55 Methemoglobin 1.0 % (0.4-1.5) 11/23/24 02:55 Total Hemoglobin 13.4 g/dL (12-16) 11/23/24 02:55 Sodium 141.0 mmol/L (131-143) 11/23/24 02:55 Potassium 3.8 mmol/L (3.5-5.0) 11/23/24 02:55 Glucose 115.0 mg/dL (70-115) 11/23/24 02:55 Ionized Calcium 1.2 mmol/L (1.1-1.4) 11/23/24 02:55 O2 Delivery Device Nc 11/23/24 02:55 O2 Liters/Min 5.0 % 11/23/24 02:55 Communications Equipment Installer ID [email or web address] 11/23/24 02:55 Sodium 138 mmol/L (136-145) 11/28/24 04:39 Potassium 3.9 mmol/L (3.5-5.1) 11/28/24 04:39 Chloride 101 mmol/L (98-107) 11/28/24 04:39 Carbon Dioxide 26 mmol/L (22-29) 11/28/24 04:39 Anion Gap 14.9 (5-19) 11/28/24 04:39 BUN 20 mg/dL (8-23) 11/28/24 04:39 Creatinine 0.6 mg/dL (0.5-0.9) 11/28/24 04:39 GFR Calculation 98.8 mL/min (90-130) 11/28/24 04:39 Glucose 148 mg/dL (65-115) H 11/28/24 04:39 Calculated Osmolality 291 mOsm/kg (285-295) 11/28/24 04:39 Lactic Acid 1.3 mmol/L (0.5-2.2) 11/23/24 03:00 Calcium 9.1 mg/dL (8.5-10.5) 11/28/24 04:39 Magnesium 1.9 mg/dL (1.7-2.3) 11/24/24 02:13 Total Bilirubin 0.2 mg/dL (0.15-1.2) 11/28/24 04:39 AST 41 U/L (0-32) H 11/28/24 04:39 ALT 68 U/L (0-33) H 11/28/24 04:39 Alkaline Phosphatase 82 U/L (35-105) 11/28/24 04:39 Troponin T 5th Gen ng/L 40 ng/L (0-10) H 11/23/24 17:21 Troponin T Baseline 31 ng/L (0-10) H 11/23/24 03:00 Troponin T 120 Minute 41.60 ng/L (0-10) H 11/23/24 04:13 Delta Troponin T 10.60 ABS# (0-10) H* 11/23/24 04:13 Troponin T Hi Sens 6Hr 47.88 ng/L (0-10) H 11/23/24 09:45 Troponin T Hi Sens 6Hr Delta 16.88 ng/L (0-12) H* 11/23/24 09:45 C-Reactive Protein 3.0 mg/L (0.0-4.9) 11/24/24 02:13 NT-Pro-B Natriuret Pep 185 pg/mL (0-125) H 11/23/24 03:00 Total Protein 6.4 g/dL (6.6-8.7) L 11/28/24 04:39 Albumin 3.5 g/dL (3.5-5.2) 11/28/24 04:39 Globulin 2.9 g/dL (1.3-4.6) 11/28/24 04:39 Procalcitonin 0.03 ng/mL (0-0.5) 11/23/24 04:13 Nasal MRSA (PCR) Not detected (Not Detecte) 11/27/24 17:30 Influenza A (PCR) Negative (Negative) 11/23/24 03:14 Influenza Type B (PCR) Negative (Negative) 11/23/24 03:14 RSV (PCR) Negative (Negative) 11/23/24 03:14 SARS-CoV-2 (PCR) Negative (Negative) 11/23/24 03:14 Vitals Last Vital Signs Temp 98.5 F 11/28/24 12:00 Pulse 69 11/28/24 12:00 Resp 20 H 11/28/24 12:00 BP 113/61 11/28/24 12:00 Pulse Ox 94 11/28/24 12:00 O2 Del Method Nasal Cannula 11/28/24 12:00 O2 Flow Rate 5 11/28/24 08:47 Discharge Plan Discharge Patient Disposition: Home Health Service Condition: Stable Prescriptions: New aspirin 81 mg Tablet,Delayed Release (Dr/Ec) 81 mg PO DAILY 30 Days Qty: 30 0RF isosorbide mononitrate 30 mg Tablet Extended Release 24 Hr 30 mg PO DAILY 30 Days Qty: 30 0RF pantoprazole 40 mg Tablet,Delayed Release (Dr/Ec) 40 mg PO DAILY 30 Days Qty: 30 0RF prednisone 20 mg Tablet 40 mg PO DAILY 5 Days Qty: 5 0RF fluticasone propion-salmeterol [Advair Diskus] 500-50 mcg/dose blister with device 1 inh inhalation BID 30 Days Qty: 60 2RF tiotropium bromide [Spiriva with HandiHaler] 18 mcg capsule, w/inhalation device 1 cap inhalation DAILY 30 Days Qty: 30 2RF Rx Instructions: puncture 1 cap using device; one dose = 2 inhalations levofloxacin 750 mg tablet 750 mg PO DAILY 4 Days Qty: 4 0RF Continued omeprazole 40 mg capsule,delayed release(DR/EC) 40 mg PO DAILY PRN (Reason: Heartburn) (DME) cam boot to left See Rx Instructions .Route .MEDSUPPLY Qty: 1 0RF Rx Instructions: As directed rosuvastatin 40 mg tablet 40 mg PO DAILY@17 (DME) ASO to left See Rx Instructions .Route .MEDSUPPLY Qty: 1 0RF Rx Instructions: As directed [place] [place] See Rx Instructions .Route .MEDSUPPLY Qty: 1 0RF Rx Instructions: As directed Home magnesium L-lactate [Magtab] 84 mg tablet extended release 84 mg PO BID Qty: 60 6RF metoprolol tartrate 50 mg tablet 50 mg PO Q12H Qty: 180 3RF omega-3 fatty acids 1,000 mg Capsule 1,000 mg PO DAILY@08 acetaminophen 500 mg Tablet 500 mg PO Q6H PRN (Reason: Pain) levothyroxine 50 mcg tablet 50 mcg PO DAILY@08 clopidogrel [Plavix] 75 mg tablet 75 mg PO DAILY@0800 30 Days Qty: 30 0RF albuterol sulfate 90 mcg/actuation HFA aerosol inhaler 2 puff INHALATION QID PRN (Reason: Shortness Of Breath) Qty: 8.5 5RF Discontinued fluticasone propion-salmeterol [Advair HFA] 45-21 mcg/actuation HFA aerosol inhaler 2 inh inhalation Q12H Qty: 12 4RF Rx Instructions: administer with spacer Discharge Orders: Discharge Order (Routine); Ordered 11/28/24 Ordered By: Jessica Torres Referrals: [facility] ([facility]) [Outside] Joi Narayanan FNP [Nurse Practitioner] - 12/11/24 3:00 pm Katie Dobbs PA [Primary Care Provider] - 12/05/24 2:40 pm Discharge Diet: Usual diet Discharge Activity: Increase activity as tolerated Patient Instructions: Prednisone (By mouth), Aspirin (By mouth), Isosorbide Mononitrate (By mouth), Levofloxacin (By mouth) (Levaquin, Levaquin Leva-lea), COPD (Chronic Obstructive Pulmonary Disease) (ED), Heart Catheterization (GEN), Opioid Safety, Pain Management Discharge Attestations Time Spent in Discharge Care*: greater than 30 min Status at Discharge: Cognitive status at discharge: cognitively intact , Behavioral status at discharge: cooperative , Quality Metrics Clinical Quality Measures [ No reported AMI, CVA or VTE this stay] Coding Level of Care Code Acute Code for Chg Fwd Diagnoses Coronary artery disease I25.10 Elevated troponin R79.89 Chronic respiratory failure with hypoxia and hypercapnia J96.11; J96.12 Pneumonia J18.9
== END 2024-11-28 13:50 | disposition home health service (06) | DRG 193 ==
LOC: ER 06:04 → MEDSURG 08:35
PROVIDERS: Internal Medicine; Internal Medicine Cardiovascular Disease; Admitting Provider Internal Medicine; Emergency Provider Emergency Medicine; PCP Physician Assistant; Visit Provider Student in an Organized Health Care Education/Training Program
PROC: 4A023N7 Measurement of Cardiac Sampling and Pressure, Left Heart, Percutaneous Approach (ICD-10-PCS; principal; 2024-11-27 10:20)
DX: J18.9 Pneumonia, unspecified organism (principal); I21.A1 Myocardial infarction type 2; J96.12 Chronic respiratory failure with hypercapnia; J96.11 Chronic respiratory failure with hypoxia; I50.32 Chronic diastolic (congestive) heart failure; J44.0 Chronic obstructive pulmonary disease with (acute) lower respiratory infection; J44.1 Chronic obstructive pulmonary disease with (acute) exacerbation; I11.0 Hypertensive heart disease with heart failure; I25.10 Atherosclerotic heart disease of native coronary artery without angina pectoris; E03.9 Hypothyroidism, unspecified; K21.9 Gastro-esophageal reflux disease without esophagitis; F41.9 Anxiety disorder, unspecified; F17.210 Nicotine dependence, cigarettes, uncomplicated; E78.2 Mixed hyperlipidemia; I73.9 Peripheral vascular disease, unspecified; J43.9 Emphysema, unspecified; D72.829 Elevated white blood cell count, unspecified; T38.0X5A Adverse effect of glucocorticoids and synthetic analogues, initial encounter; Z99.81 Dependence on supplemental oxygen; Z79.899 Other long term (current) drug therapy; Z79.890 Hormone replacement therapy; Z79.02 Long term (current) use of antithrombotics/antiplatelets; Z88.8 Allergy status to other drugs, medicaments and biological substances; Z85.3 Personal history of malignant neoplasm of breast; Z90.49 Acquired absence of other specified parts of digestive tract; Z11.52 Encounter for screening for COVID-19; Z88.2 Allergy status to sulfonamides
CPT/HCPCS: 36415; 36600; 71045; 80048; 80051; 80053; 82330; 82805; 83605; 83735; 83880; 84145; 84484; 85025; 85378; 86140; 87040; 87070; 87205; 87637; 93005; 93306; 93458; 94640; 94660; 96365; 96372; 96374; 96375; 99152; 99153; 99285; C1769; C1887; C1894; J0131; J0696; J1200; J1644; J1650; J2250; J2405; J2919; J3010; J3490; J7030; J7512; J7613; J7626; J9999; Q0144; Q9967

== ENCOUNTER 2024-12-08 00:31 | Emergency (ER) | payer MEDICARE, SELFPAY ==
[2024-12-08 00:32] VITALS: BP 135/65; PULSE 72; RESP 20; TEMP 36.4; O2SAT 97; BMI 27.9
[2024-12-08 01:05] VITALS: PULSE 61; RESP 20; O2SAT 98
[2024-12-08] MEDS: ipratropium-albuterol 3 mL Neb INHALATION (01:07)
[2024-12-08 01:11] VITALS: PULSE 73; RESP 20; O2SAT 98
[2024-12-08 01:16] VITALS: BP 147/94; PULSE 69; RESP 20; O2SAT 97
[2024-12-08 02:26] VITALS: BP 111/60; PULSE 76; RESP 24; O2SAT 96
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
== END 2024-12-08 02:05 | disposition home or self-care (01) ==
PROVIDERS: Emergency Provider Emergency Medicine; PCP Physician Assistant
DX: R06.02 Shortness of breath (principal); Z79.82 Long term (current) use of aspirin; Z79.02 Long term (current) use of antithrombotics/antiplatelets; F17.210 Nicotine dependence, cigarettes, uncomplicated; I10 Essential (primary) hypertension; E78.5 Hyperlipidemia, unspecified; I25.10 Atherosclerotic heart disease of native coronary artery without angina pectoris; J44.9 Chronic obstructive pulmonary disease, unspecified
CPT/HCPCS: 94640; 99283; J9999

== ENCOUNTER → 2024-12-11 14:53 | Outpatient (BNVA) | payer MEDICARE, SELFPAY | PROVIDERS: PCP Physician Assistant; Visit Provider Nurse Practitioner Family | DX: I65.23 Occlusion and stenosis of bilateral carotid arteries (principal); R00.2 Palpitations; I11.9 Hypertensive heart disease without heart failure; R07.89 Other chest pain; F17.200 Nicotine dependence, unspecified, uncomplicated | CPT/HCPCS: 99214 ==

== ENCOUNTER 2024-12-23 01:27 | Emergency (ER) | payer MEDICARE, SELFPAY ==
[2024-12-23 01:27] VITALS: BP 137/83; PULSE 69; RESP 22; TEMP 36.8; O2SAT 92; BMI 27.9
[2024-12-23] MEDS: ipratropium-albuterol 3 mL Neb INHALATION (02:01)
--- NOTE | 2024-12-23 02:02 | XRR_ITS ---
PROCEDURE INFORMATION: Exam: XR Chest Exam date and time: 12/23/2024 2:26 AM Age: 69 years old Clinical indication: Cough and shortness of breath; C/O cough with SOB. History of copd and breast cancer. TECHNIQUE: Imaging protocol: Radiologic exam of the chest. Views: 1 view. COMPARISON: CR (CHEST, ) 11/23/2024 2:44 AM FINDINGS: Lungs: No consolidation. Pleural spaces: No pleural effusion. No pneumothorax. Heart/Mediastinum: No cardiomegaly. Bones/joints: No acute findings. XR/XR chest 1V portable [id number] IMPRESSION: Resolved right lower lobe pneumonia. No new consolidation.
[2024-12-23 02:03] VITALS: PULSE 70; RESP 24; O2SAT 93
[2024-12-23 02:33] LABS: Influenza A NEGATIVE (Negative); Influenza B NEGATIVE (Negative); Respiratory Syncytial Virus Ce NEGATIVE (Negative); SARS-CoV-2 PCR NEGATIVE (Negative)
[2024-12-23 02:37] LABS: Basophils % 0.4 %; Eosinophils # 0.2 10^3/uL (0.0-0.8); Eosinophils % 2.3 %; Hematocrit 43.9 % (36-47); Lymphocytes # 1.6 10^3/uL (0.8-4.8); Lymphocytes % 21.7 %; Mean Corpuscular HGB Conc 29.8 g/dL (30-55); Mean Corpuscular Hemoglobin 25.9 pg (27-33); Mean Corpuscular Volume 86.9 fl (85-98); Mean Platelet Volume 9.6 fL (7.4-10.4); Monocytes # 0.4 10^3/uL (0.2-0.9); Monocytes % 5.6 %; Neutrophils # 5.07 10^3/uL (1.8-7.7); Neutrophils % 69.7 %; Nucleated Red Blood Cells % 0 %; Platelet Count 309 10^3/cmm (157-399); Red Blood Count 5.05 10^6/uL (3.85-5.65); Red Cell Distribution Width 15.8 % (12.1-15.1); White Blood Count 7.28 10^3/uL (3.29-11.43)
--- NOTE | 2024-12-23 02:37 | ED_ITS ---
HPI - SOB/Dyspnea 2 General: Chief Complaint: Shortness of Breath/Dyspnea Stated Complaint: RES. DISTRESS Time Seen by Provider: 12/23/24 01:50 History of Present Illness: HPI Narrative: 69-year-old female with a history of end -stage COPD. She presents with 3 to 4 days increasing shortness of breath with cough and sputum production. No fever. Somewhat improved after breathing treatment and dexamethasone in the ambulance on the way here. Related Data Home Medications ?Medication ?Instructions ?Recorded ?Confirmed rosuvastatin 40 mg tablet 40 mg PO DAILY@02/25/23 0 12/11/24 acetaminophen 500 mg tablet 500 mg PO Q6H PRN Pain 07/1812/11/24 levothyroxine 50 mcg tablet 50 mcg PO DAILY@ 3 12/11/24 omega-3 fatty acids 1,000 mg 1,000 mg PO DAILY@03/2612/11/24 capsule Previous Rx's ?Medication ?Instructions ?Recorded cam boot to left #1 ea 04/12/23 ASO to left #1 ea 05/02/23 Rollator Walker #1 ea 05/25/23 metoprolol tartrate 50 mg tablet 50 mg PO Q12H #180 ta bs 10/26/24 albuterol sulfate 90 mcg/actuation 2 puff inhalation Q ID PRN 11/27/24 aerosol inhaler Shortness Of Breath #8.5 gra ms clopidogrel 75 mg tablet (Plavix) 75 mg PO DAILY@0800 30 days #30 11/27/24 tabs fluticasone 500 mcg-salmeterol 50 1 inh inhalation BID 30 days #60 ea 11/27/24 mcg/dose blistr powdr for inhalation (Advair Diskus) pantoprazole 40 mg tablet,delayed 40 mg PO DAILY 30 da ys #30 tabs 11/27/24 release tiotropium bromide 18 mcg capsule 1 cap inhalation KALYANI LY 30 days #30 11/27/24 with inhalation device (Spiriva inhalations with HandiHaler) isosorbide mononitrate 30 mg 30 mg PO DAILY 30 days #3 0 tabs 12/11/24 tablet,extended release 24 hr magnesium L-lactate 84 mg 84 mg PO BID #60 tabs tablet,extended release (Magtab) nitroglycerin 0.4 mg sublingual 0.4 mg sublingual Q5M PRN chest 12/11/24 tablet (Nitrostat) pain #25 tabs doxycycline hyclate 100 mg tablet 100 mg PO BID 7 days #14 tabs 12/23/24 methylprednisolone 4 mg tablets in See Rx Instructions PO .COMPLEX 12/23/24 a dose pack (Medrol (Eze)) #21 ea Allergies Allergy/AdvReac Type Severity Reaction Status Date / Time diphenhydramine (From Allergy Intermediate ALGY-Hives Verified 08/13/24 14:44 Benadryl) sulfabenzamide Allergy Intermediate swelling Verified 08/13/24 14:44 [facility] ED 2 PFSH: Medical History Peripheral arterial disease Benign essential HTN Viral pneumonia Influenza Hypoxia Acute bronchitis Acute on chronic respiratory failure with hypoxia and hypercapnia Acute exacerbation of chronic obstructive pulmonary disease Grade III diastolic dysfunction MURILLO (dyspnea on exertion) Atherosclerosis of coronary artery Hypertension Adult hypothyroidism Hyperlipemia Dyspnea on exertion Malaise and fatigue Chronic obstructive asthma with exacerbation Emphysema/COPD GERD (gastroesophageal reflux disease) Back pain Palpitations Hypothyroidism Insomnia Park's palsy Hx of hyperlipidemia Anxiety Hx of breast cancer CAD (coronary artery disease) History of hypertension PAD (peripheral artery disease) Syncope Bilateral carotid artery stenosis without cerebral infarction Surgical History H/O tubal ligation History of cholecystectomy Status post carotid endarterectomy Family History Mother Lung disease Family/Other Cancer Grandmother CAD (coronary artery disease) Stroke Father Bleeding disorder Denies family history of Diabetes Clotting disorder Dementia Chronic kidney disease (CKD) Suicide Anesthesia complication Social History Smoking and tobacco/nicotine status: current every day tobacco/nicotine user cigarettes Packs smoked per day: 1 Years cigarettes smoked: 31 [ Other cigarette details: Started at age 22] Alcohol intake: never Substance/Drug Use: never Physical Exam 2 Const: COMMON NORMALS: no acute distress GENERAL APPEARANCE: cooperative; not ill appearing and not frail appearing HENMT: COMMON NORMALS: normocephalic, atraumatic and Normal external nose present HEAD & SCALP: normocephalic and atraumatic FACE & SINUS: normal facial exam and face symmetric NOSE: Normal external nose present Eye: COMMON NORMALS: Equal, round and reactive pupils present and EOMs intact bilaterally PUPIL: Yes Equal, round and reactive pupils present Neck/C-Spine: GENERAL: Yes trachea midline Chest: CHEST: Yes Symmetrical chest wall rise Resp: COMMON NORMALS: normal respiratory effort, No retractions, No use of accessory muscles and clear to auscultation bilaterally AUSCULTATION: clear to auscultation bilaterally Cardio: COMMON NORMALS: regular rate and regular rhythm RATE: regular rate RHYTHM: regular rhythm GI: COMMON NORMALS: Normal to inspection, nondistended, normoactive bowel sounds present Extremity: COMMON NORMALS: no pedal edema Neuro: ARY COMA SCALE: document GCS findings [place] coma scale eye opening: Spontaneous [place] coma scale verbal response: Orientated [place] coma scale motor response: Obey commands Ary coma scale total score: 15 S ENSORY EXAM: Yes extremities (intact) Psych: COMMON NORMALS: speech normal SPEECH: Yes normal speech Skin: COMMON NORMALS: no rashes or lesions noted GENERAL SKIN EXAM: no rashes or lesions noted Course 2 Vital Signs: Vital signs: Vital Signs Temperature 98.2 F 12/23/24 01:27 Pulse Rate 78 12/23/24 03:19 Respiratory Rate 24 H 12/23/24 03:19 Blood Pressure 130/83 12/23/24 03:19 Pulse Oximetry 98 12/23/24 03:19 Oxygen Delivery Me thod Nasal Cannula 12/23/24 02:03 Oxygen Flow Rate 5 12/23/24 02:03 MDM - SOB/Dyspnea Medical Decision Making Oxygen saturations are 99% on her home 5 L. She is feeling improved. Swabs for flu RSV and COVID are negative. CBC and BMP are normal.She has had a change in her sputum. She will go home on steroids and antibiotics as well as breathing treatments Lab Data 12/23/24 02:26 12/23/24 02:26 Labs/Radiology: Radiology Impressions Chest X-Ray 12/23/24 02:02 IMPRESSION: Resolved right lower lobe pneumonia. No new consolidation. Laboratory Results WBC 7.28 10^3/uL (3.29-11.43) 12/23/24 02:26 RBC 5.05 10^6/uL (3.85-5.65) 12/23/24 02:26 Hgb 13.10 g/dL (11.27-16.99) 12/23/24 02: Hct 43.9 % (36-47) 12/23/24 02: MCV 86.9 fl (85-98) 12/23/24 02: MCH 25.9 pg (27-33) L 12/23/24 02: MCHC 29.8 g/dL (30-55) L 12/23/24 02: RDW 15.8 % (12.1-15.1) H 12/23/24 02:26 Plt Count 309 10^3/cmm (157-399) 12/23/24 02: MPV 9.6 fL (7.4-10.4) 12/23/24 02: Neut % (Auto) 69.7 % 12/23/24 02: Lymph % (Auto) 21.7 % 12/23/24 02:26 [place] % (Auto) 5.6 % 12/23/24 02:26 Eos % (Auto) 2.3 % 12/23/24 02:26 Baso % (Auto) 0.4 % 12/23/24 02: Neut # (Auto) 5.07 10^3/uL (1.8-7.7) 12/23/24 02: Lymph # (Auto) 1.6 10^3/uL (0.8-4.8) 12/23/24 02:26 [place] # (Auto) 0.4 10^3/uL (0.2-0.9) 12/23/24 02:26 Eos # (Auto) 0.2 10^3/uL (0.0-0.8) 12/23/24 02:26 Baso # (Auto) 0.0 10^3/uL (0.0-0.1) 12/23/24 02: Nucleated RBC % (auto) 0 % 12/23/24 02: Nucleated RBCs # 0.0 /100WBC 12/23/24 02:26 Sodium 140 mmol/L (136-145) 12/23/24 02:26 Potassium 4.3 mmol/L (3.5-5.1) 12/23/24 02: Chloride 105 mmol/L (98-107) 03/30/25 02:26 Carbon Dioxide 26 mmol/L (22-29) 12/23/24 02:26 Anion Gap 13.3 (5-19) 12/23/24 02:26 BUN 13 mg/dL (8-23) 12/23/24 02:26 Creatinine 0.7 mg/dL (0.5-0.9) 12/23/24 02:26 GFR Calculation 82.7 mL/min (90-130) L 12/23/24 02:26 Glucose 105 mg/dL (65-115) 12/23/24 02:26 Calculated Osmolality 290 mOsm/kg (285-295) 12/23/24 02:26 Calcium 9.4 mg/dL (8.5-10.5) 12/23/24 02:26 Influenza A (PCR) Negative (Negative) 12/23/24 01:52 Influenza Type B (PCR) Negative (Negative) 12/23/24 01:52 RSV (PCR) Negative (Negative) 12/23/24 01:52 SARS-CoV-2 (PCR) Negative (Negative) 12/23/24 01:52 All radiology interpretation(s) finalized by discharge Discharge Plan Discharge Patient Disposition: Home Clinical Impression: Acute exacerbation of chronic obstructive airways disease Condition: Stable Prescriptions: New methylprednisolone [Medrol (Eze)] 4 mg tablets,dose pack See Rx Instructions .ROUTE .COMPLEX Qty: 21 0RF Rx Instructions: orally per package directions doxycycline hyclate 100 mg tablet 100 mg PO BID 7 Days Qty: 14 0RF No Action (DME) cam boot to left See Rx Instructions .Route .MEDSUPPLY Qty: 1 0RF Rx Instructions: As directed magnesium L-lactate [Magtab] 84 mg tablet extended release 84 mg PO BID Qty: 60 6RF isosorbide mononitrate 30 mg tablet extended release 24 hr 30 mg PO DAILY 30 Days Qty: 30 0RF nitroglycerin [Nitrostat] 0.4 mg tablet, sublingual 0.4 mg sublingual Q5M PRN (Reason: chest pain) Qty: 25 0RF Rx Instructions: do not exceed 3 doses per episode rosuvastatin 40 mg tablet 40 mg PO DAILY@17 (DME) ASO to left See Rx Instructions .Route .MEDSUPPLY Qty: 1 0RF Rx Instructions: As directed (DME) Rollator Walker See Rx Instructions .Route .MEDSUPPLY Qty: 1 0RF Rx Instructions: As directed Home metoprolol tartrate 50 mg tablet 50 mg PO Q12H Qty: 180 3RF omega-3 fatty acids 1,000 mg Capsule 1,000 mg PO DAILY@08 acetaminophen 500 mg Tablet 500 mg PO Q6H PRN (Reason: Pain) levothyroxine 50 mcg tablet 50 mcg PO DAILY@08 pantoprazole 40 mg Tablet,Delayed Release (Dr/Ec) 40 mg PO DAILY 30 Days Qty: 30 0RF fluticasone propion-salmeterol [Advair Diskus] 500-50 mcg/dose blister with device 1 inh inhalation BID 30 Days Qty: 60 2RF tiotropium bromide [Spiriva with HandiHaler] 18 mcg capsule, w/inhalation device 1 cap inhalation DAILY 30 Days Qty: 30 2RF Rx Instructions: puncture 1 cap using device; one dose = 2 inhalations clopidogrel [Plavix] 75 mg tablet 75 mg PO DAILY@0800 30 Days Qty: 30 0RF albuterol sulfate 90 mcg/actuation HFA aerosol inhaler 2 puff INHALATION QID PRN (Reason: Shortness Of Breath) Qty: 8.5 5RF Discharge Orders: Discharge ED (Routine); Ordered 12/23/24 Ordered By: Jean-Claude Oakley Referrals: Katie Dobbs PA [Primary Care Provider] - Patient Instructions: COPD (Chronic Obstructive Pulmonary Disease) (ED), Opioid Safety, Pain Management Activity Restrictions/Additional Instructions: Medication as directed. Use your albuterol every 4 hours while awake for the first 48 hours for the feel you needed or not. You may use it as needed following. Return for fever despite 2-3 more doses of antibiotics, worsening shortness of breath despite treatment, any other concerns. Call your doctor for an appointment next week. Print Language: Croatian Coding Level of Care Code ED Control Clerk Subassembly for Tevin Gonzalez
[2024-12-23 02:52] LABS: Blood Urea Nitrogen 13 mg/dL (8-23); Calcium 9.4 mg/dL (8.5-10.5); Carbon Dioxide 26 mmol/L (22-29); Chloride 105 mmol/L (98-107); Glomerular Filtration Rate 82.7 mL/min (90-130); Glucose 105 mg/dL (65-115); Osmolality Calculated 290 mOsm/kg (285-295); Sodium 140 mmol/L (136-145)
[2024-12-23 02:54] LABS: Anion Gap 13.3 (5-19); Potassium 4.3 mmol/L (3.5-5.1)
[2024-12-23 03:19] VITALS: BP 130/83; PULSE 78; RESP 24; O2SAT 98
== END 2024-12-23 03:49 | disposition home or self-care (01) ==
PROVIDERS: Emergency Provider Emergency Medicine; PCP Physician Assistant
DX: J44.1 Chronic obstructive pulmonary disease with (acute) exacerbation (principal); Z11.52 Encounter for screening for COVID-19; Z79.02 Long term (current) use of antithrombotics/antiplatelets; F17.210 Nicotine dependence, cigarettes, uncomplicated; I25.10 Atherosclerotic heart disease of native coronary artery without angina pectoris; E78.5 Hyperlipidemia, unspecified; I10 Essential (primary) hypertension; Z85.3 Personal history of malignant neoplasm of breast
CPT/HCPCS: 36415; 71045; 80048; 85025; 87637; 94640; 99284; J9999

== ENCOUNTER 2025-01-01 10:48 | Outpatient (CLI) | payer MEDICARE, SELFPAY ==
--- NOTE | 2025-01-01 11:15 | USCV_ITS ---
PalaciosCinthia Age: 69 Gender: F : 1955 Exam Date: 01/01/2025 11:30 Ordering Phys: Portia Navarrete NP Technologist: TRISTIAN [place] [facility] [place]: Stenosis Risk Factors: Previous Vascular Surgery: Right Brachial BP: / Left Brachial BP: / Right Left Velocity (cm/s) Spectral Plaque Velocity (cm/s) Spectral Plaque Syst/Diast Broadening Syst/Diast Broadening 67.70/ 19.30 Prox CCA 53.80 / 9.70 77.80/ 28.10 Mid CCA 66.90 / 0.00 78.90/ 20.60 Distal CCA 62.10 / 11.20 71.70/ 21.60 Prox ICA / 100.60/28.10 Mid ICA / 73.10/ 21.60 Distal ICA / 98.50 ECA 146.60 1.30 ICA/CCA 0.30 Antegrade Vertebral Antegrade 52.20/ 13.80 cm/s 64.90/ 20.40 cm/s Bi Subclavian Bi 129.8 145.4 0 0 CONCLUSIONS Right ICA stenosis <50%. Mild atheromatous plaque right carotid bulb/ICA. Chronic occlusion LEFT ICA unchanged since 09/17 Normal antegrade Doppler flow noted in the right vertebral artery. Normal antegrade Doppler flow noted in the left vertebral artery. Anthony Marie MD (Electronically Signed) Final Date: 01 January 2025 13:41 S
== END 2025-01-01 10:49 | disposition home or self-care (01) ==
LOC: RAD 10:50
PROVIDERS: PCP Physician Assistant; Visit Provider Nurse Practitioner Family
DX: I65.23 Occlusion and stenosis of bilateral carotid arteries (principal)
CPT/HCPCS: 93880

== ENCOUNTER 2025-02-12 03:34 | Emergency (ER) | payer MEDICARE, SELFPAY ==
[2025-02-12] VITALS (8 sets, daily range): BP systolic 120–133; BP diastolic 55–70; PULSE 59–71; RESP 18–23; TEMP 36.3; O2SAT 92–98; BMI 28.9
--- NOTE | 2025-02-12 03:45 | ECG_ITS ---
[facility] [place] [facility] Date: 2025-02[facility]12 Pat Name: Cinthia Palacios Department: Room: Gender: Female [employer]: : 1955 Requested By: Vasile Flynn Order Number: [id number] Shana MD: Marilyn Moore M.D. Measurements Intervals [place] Rate: 67 P: 75 NM: 124 QRS: 75 QRSD: 75 T: 76 QT: 403 QTc: 428 Interpretive Statements SINUS RHYTHM MODERATE ST DEPRESSION [0.05+ mV ST DEPRESSION] Compared to ECG 11/23/2024 10:02:17 ST (T wave) deviation now present Sinus arrhythmia no longer present Myocardial infarct finding no longer present Electronically Signed On 02-12-2025 17:45:27 CDT by Marilyn Moore M.D. [email or web address]
--- NOTE | 2025-02-12 04:38 | XRR_ITS ---
PROCEDURE INFORMATION: Exam: XR Chest Exam date and time: 02/12/2025 5:20 AM Age: 69 years old Clinical indication: Cough and dyspnea; Additional info: Dyspnea/cough TECHNIQUE: Imaging protocol: Radiologic exam of the chest. Views: 1 view. COMPARISON: CR XR chest 1V portable [id number] 12/23/2024 2:26 AM FINDINGS: Lungs: No consolidation. Pleural spaces: No pleural effusion. No pneumothorax. Heart/Mediastinum: No cardiomegaly. Calcification of the aortic knob. Bones/joints: No acute osseous abnormality. XR/XR chest 1V portable [id number] IMPRESSION: No acute cardiopulmonary abnormality
[2025-02-12 04:45] LABS: Basophils # 0.1 10^3/uL (0.0-0.1); Basophils % 0.8 %; Eosinophils % 0.2 %; Hematocrit 41.3 % (36-47); Mean Corpuscular Hemoglobin 25.5 pg (27-33); Mean Corpuscular Volume 82.4 fl (85-98); Monocytes # 0.6 10^3/uL (0.2-0.9); Monocytes % 8.3 %; Neutrophils # 3.99 10^3/uL (1.8-7.7); Neutrophils % 60.4 %; Nucleated Red Blood Cells % 0 %; Platelet Count 273 10^3/cmm (157-399); Red Blood Count 5.01 10^6/uL (3.85-5.65); Red Cell Distribution Width 14.6 % (12.1-15.1)
[2025-02-12] MEDS: ipratropium-albuterol 3 mL Neb INHALATION ×2 (04:48→06:39)
--- NOTE | 2025-02-12 04:54 | W.ED.SOB ---
HPI - SOB/Dyspnea General: Chief Complaint: Shortness of Breath/Dyspnea Stated Complaint: sob Time Seen by Provider: 02/12/25 04:36 History of Present Illness: HPI Narrative: 69-year-old female presents to the emergency room via EMS with complaints of feeling short of breath. Patient states he usually is at 5 L by nasal cannula she uses CPAP at night when she woke up she felt like she was struggling to breathe and called the ambulance. She did receive a DuoNeb prior to arrival. When I came in the room she was on 6 L we turned it down to 4-1/2 and her oxygen sat remained mid 90s in the and above. She denies any recent fever sweats or chills. No chest pain no abdominal pain she has not had a productive cough. This all just began overnight. Associated symptoms: Deny abdominal pain, chest pain or fever(s) Related Data Home Medications ?Medication ?Instructions ?Recorded ?Confirmed rosuvastatin 40 mg tablet 40 mg PO DAILY@17 02/25/23 12/11/24 acetaminophen 500 mg tablet 500 mg PO Q6H PRN Pain 04/04/23 12/11/24 levothyroxine 50 mcg tablet 50 mcg PO DAILY@04/04/23 12/11/24 omega-3 fatty acids 1,000 mg 1,000 mg PO DAILY@04/04/23 12/11/24 capsule Previous Rx's ?Medication ?Instructions ?Recorded cam boot to left #1 ea 04/12/23 ASO to left #1 ea 05/02/23 Rollator Walker #1 ea 05/25/23 metoprolol tartrate 50 mg tablet 50 mg PO Q12H #180 tabs 10/26/24 albuterol sulfate 90 mcg/actuation 2 puff inhalation QID PRN 11/27/24 aerosol inhaler Shortness Of Breath #8.5 grams clopidogrel 75 mg tablet (Plavix) 75 mg PO DAILY@0800 30 days #30 11/27/24 tabs fluticasone 500 mcg-salmeterol 50 1 inh inhalation BID 30 days #60 ea 11/27/24 mcg/dose blistr powdr for inhalation (Advair Diskus) tiotropium bromide 18 mcg capsule 1 cap inhalation DAILY 30 days #30 11/27/24 with inhalation device (Spiriva inhalations with HandiHaler) magnesium L-lactate 84 mg 84 mg PO BID #60 tabs 12/11/24 tablet,extended release (Magtab) nitroglycerin 0.4 mg sublingual 0.4 mg sublingual Q5M PRN chest 12/11/24 tablet (Nitrostat) pain #25 tabs methylprednisolone 4 mg tablets in See Rx Instructions PO .COMPLEX 12/23/24 a dose pack (Medrol (Eze)) #21 ea atropine 1 % eye drops 4 drp sublingual Q4H PRN 01/16/25 secretions #5 mL bisacodyl 10 mg rectal suppository 10 mg MN DAILY PRN constipation #5 01/16/25 ea diphenhydramine HCl 25 mg tablet 25 mg PO Q4H #5 tabs 01/16/25 hydroxyzine HCl 25 mg tablet 25 mg PO TID PRN Itching #5 tabs 01/16/25 lorazepam 2 mg/mL oral concentrate 2 mg sublingual Q4H PRN 01/16/25 Anxiety/Seizure #30 mL morphine concentrate 100 mg/5 mL 20 mg sublingual DIRECTED PRN 01/16/25 (20 mg/mL) oral solution Pain/SOB 14 days #30 mL ondansetron 4 mg disintegrating 4 mg translingual Q4H PRN nausea 01/16/25 tablet #5 tabs prednisone 20 mg tablet 20 mg PO TID #15 tabs 02/12/25 Allergies Allergy/AdvReac Type Severity Reaction Status Date / Time diphenhydramine (From Allergy Intermediate ALGY-Hives Verified 08/13/24 14:44 Benadryl) sulfabenzamide Allergy Intermediate swelling Verified 08/13/24 14:44 Review of Systems Const: Denies: fever(s) or chills Card: Denies: chest pain Resp: Denies: dyspnea GI: Denies: abdominal pain : Denies: dysuria, urinary frequency or urinary urgency Musc: Denies: neck pain or back pain Skin/Breast: Denies: rash PFSH ED PFSH: Medical History Peripheral arterial disease Benign essential HTN Viral pneumonia Influenza Hypoxia Acute bronchitis Acute on chronic respiratory failure with hypoxia and hypercapnia Acute exacerbation of chronic obstructive pulmonary disease Grade III diastolic dysfunction MURILLO (dyspnea on exertion) Atherosclerosis of coronary artery Hypertension Adult hypothyroidism Hyperlipemia Dyspnea on exertion Malaise and fatigue Chronic obstructive asthma with exacerbation Emphysema/COPD GERD (gastroesophageal reflux disease) Back pain Palpitations Hypothyroidism Insomnia Park's palsy Hx of hyperlipidemia Anxiety Hx of breast cancer CAD (coronary artery disease) History of hypertension PAD (peripheral artery disease) Syncope Bilateral carotid artery stenosis without cerebral infarction Surgical History H/O tubal ligation History of cholecystectomy Status post carotid endarterectomy Family History Mother Lung disease Family/Other Cancer Grandmother CAD (coronary artery disease) Stroke Father Bleeding disorder Denies family history of Diabetes Clotting disorder Dementia Chronic kidney disease (CKD) Suicide Anesthesia complication Social History Smoking and tobacco/nicotine status: current every day tobacco/nicotine user cigarettes Packs smoked per day: 1 Years cigarettes smoked: 31 [ Other cigarette details: Started at age 22] Alcohol intake: never Substance/Drug Use: never Physical Exam Const: COMMON NORMALS: no acute distress GENERAL APPEARANCE: cooperative and comfortable ORIENTATION/CONSCIOUSNESS: Yes awake, Yes oriented to person, Yes oriented to place and Yes oriented to time HENMT: COMMON NORMALS: normocephalic, atraumatic and hearing grossly normal bilaterally HEAD & SCALP: normocephalic and atraumatic Resp: COMMON NORMALS: normal respiratory effort, No retractions and No use of accessory muscles AUSCULTATION: rhonchi and wheezes Cardio: COMMON NORMALS: regular rate, regular rhythm and No murmurs present (Cardio) RATE: regular rate RHYTHM: regular rhythm GI: COMMON NORMALS: Soft to palpation and No hepatosplenomegaly present AUSCULTATION: Yes normoactive bowel sounds PALPATION: Yes Soft to palpation, No Tenderness to palpation present (GI), No Guarding due to palpation present (GI) and Yes No hepatosplenomegaly present Extremity: COMMON NORMALS: normal to inspection, capillary refill normal, no clubbing, cyanosis or edema, no calf tenderness and no pedal edema Neuro: SENSORIUM/ORIENTATION: Yes oriented to person, Yes oriented to place and Yes oriented to time Skin: COMMON NORMALS: no rashes or lesions noted GENERAL SKIN EXAM: no rashes or lesions noted Course Vital Signs: Vital signs: Vital Signs Temperature 97.3 F L 02/12/25 03:35 Pulse Rate 71 02/12/25 07:45 Respiratory Rate 23 H 02/12/25 07:45 Blood Pressure 120/58 02/12/25 07:45 Pulse Oximetry 94 02/12/25 07:45 Oxygen Delivery Me thod Nasal Cannula 02/12/25 07:00 Oxygen Flow Rate 4.5 02/12/25 06:44 MDM - SOB/Dyspnea Medical Decision Making Improved after nebulizers maintaining her sats a little lower than her usual oxygen manner down to 4-1/2 she is maintaining her sats well. Her lungs improved after nebulizer treatment she is feeling much better will discharge her home on a Medrol Dosepak no signs of infection no believe she needs any antibiotics continue to use albuterol as needed continue all other previously prescribed medications Medical Records I reviewed the patient's medical records. Lab Data I reviewed the patient's lab results. 02/12/25 04:08 02/12/25 04:08 Labs/Radiology: Radiology Impressions Chest X-Ray 02/12/25 04:38 IMPRESSION: No acute cardiopulmonary abnormality Laboratory Results WBC 6.60 10^3/uL (3.29-11.43) 02/12/25 04:08 RBC 5.01 10^6/uL (3.85-5.65) 02/12/25 04:08 Hgb 12.80 g/dL (11.27-16.99) 02/12/25 04:08 Hct 41.3 % (36-47) 02/12/25 04:08 MCV 82.4 fl (85-98) L 02/12/25 04:08 MCH 25.5 pg (27-33) L 02/12/25 04:08 MCHC 31.0 g/dL (30-55) 02/12/25 04:08 RDW 14.6 % (12.1-15.1) 02/12/25 04:08 Plt Count 273 10^3/cmm (157-399) 02/12/25 04:08 MPV 10.0 fL (7.4-10.4) 02/12/25 04:08 Neut % (Auto) 60.4 % 02/12/25 04:08 Lymph % (Auto) 30.0 % 02/12/25 04:08 [place] % (Auto) 8.3 % 02/12/25 04:08 Eos % (Auto) 0.2 % 02/12/25 04:08 Baso % (Auto) 0.8 % 02/12/25 04:08 Neut # (Auto) 3.99 10^3/uL (1.8-7.7) 02/12/25 04:08 Lymph # (Auto) 2.0 10^3/uL (0.8-4.8) 02/12/25 04:08 [place] # (Auto) 0.6 10^3/uL (0.2-0.9) 02/12/25 04:08 Eos # (Auto) 0.0 10^3/uL (0.0-0.8) 02/12/25 04:08 Baso # (Auto) 0.1 10^3/uL (0.0-0.1) 02/12/25 04:08 Nucleated RBC % (auto) 0 % 02/12/25 04:08 Nucleated RBCs # 0.0 /100WBC 02/12/25 04:08 Specimen Type Arterial 02/12/25 05:12 Sample Site Radial, right 02/12/25 05:12 ABG pH 7.37 (7.35-7.45) 02/12/25 05:12 ABG pCO2 52.3 mmHg (35-45) H 02/12/25 05:12 ABG pO2 47.1 mmHg (80.0-100.0) L 02/12/25 05:12 ABG PO2/FiO2 Ratio 123 02/12/25 05:12 ABG HCO3 30.4 mmol/L (22-26) H 02/12/25 05:12 ABG O2 Saturation 84.2 02/12/25 05:12 ABG Base Excess 4.0 mmol/L (-2.0-2.0) H 02/12/25 05:12 Virgilio Test Pos 02/12/25 05:12 A-a O2 Gradient 20.3 mmHg (5-10) H 02/12/25 05:12 Hematocrit 39.2 % (37-47) 02/12/25 05:12 Hgb O2 Saturation 81.6 % (95-100) L 02/12/25 05:12 Carboxyhemoglobin 2.2 %THgb (0.4-20.1) 02/12/25 05:12 Methemoglobin 0.9 % (0.4-1.5) 02/12/25 05:12 Total Hemoglobin 12.8 g/dL (12-16) 02/12/25 05:12 Sodium 142.0 mmol/L (131-143) 02/12/25 05:12 Potassium 3.7 mmol/L (3.5-5.0) 02/12/25 05:12 Glucose 106.0 mg/dL (70-115) 02/12/25 05:12 Ionized Calcium 1.2 mmol/L (1.1-1.4) 02/12/25 05:12 O2 Delivery Device Nc 02/12/25 05:12 O2 Liters/Min 4.5 % 02/12/25 05:12 FiO2 38.0 % 02/12/25 05:12 Fraternity Adviser ID gerca 02/12/25 05:12 Sodium 142 mmol/L (136-145) 02/12/25 04:08 Potassium 3.8 mmol/L (3.5-5.1) 02/12/25 04:08 Chloride 105 mmol/L (98-107) 02/12/25 04:08 Carbon Dioxide 27 mmol/L (22-29) 02/12/25 04:08 Anion Gap 13.8 (5-19) 02/12/25 04:08 BUN 7 mg/dL (8-23) L 02/12/25 04:08 Creatinine 0.6 mg/dL (0.5-0.9) 02/12/25 04:08 GFR Calculation 98.8 mL/min (90-130) 02/12/25 04:08 Glucose 109 mg/dL (65-115) 02/12/25 04:08 Calculated Osmolality 293 mOsm/kg (285-295) 02/12/25 04:08 Calcium 9.0 mg/dL (8.5-10.5) 02/12/25 04:08 Total Bilirubin 0.3 mg/dL (0.15-1.2) 02/12/25 04:08 AST 21 U/L (0-32) 02/12/25 04:08 ALT 14 U/L (0-33) 02/12/25 04:08 Alkaline Phosphatase 89 U/L (35-105) 02/12/25 04:08 Troponin T Baseline 14 ng/L (0-10) H 02/12/25 04:08 Troponin T 120 Minute 14.66 ng/L (0-10) H 02/12/25 06:23 Delta Troponin T 0.66 ABS# (0-10) 02/12/25 06:23 Total Protein 6.7 g/dL (6.6-8.7) 02/12/25 04:08 Albumin 4.2 g/dL (3.5-5.2) 02/12/25 04:08 Globulin 2.5 g/dL (1.3-4.6) 02/12/25 04:08 Urine Color Yellow (Yellow) 02/12/25 06:18 Urine Appearance Clear (CLEAR) 02/12/25 06:18 Urine pH 5.5 (5-7) 02/12/25 06:18 Ur Specific [place] 1.019 (1.005-1.030) 02/12/25 06:18 Urine Protein 1+ (Negative) A 02/12/25 06:18 Urine Glucose (UA) Negative (Normal) 02/12/25 06:18 Urine Ketones Negative (Negative) 02/12/25 06:18 Urine Blood Trace (Negative) A 02/12/25 06:18 Urine Nitrate Negative (Negative) 02/12/25 06:18 Urine Bilirubin Negative (Negative) 02/12/25 06:18 Urine Urobilinogen 1.0 mg/dL (Negative) 02/12/25 06:18 Ur Leukocyte Esterase Negative (Negative) 02/12/25 06:18 Urine RBC 6-10 /hpf (0-2) 02/12/25 06:18 Urine WBC 0-5 /hpf (0-5) 02/12/25 06:18 Ur Squamous Epith Cells 0-5 /hpf (0-5) 02/12/25 06:18 Amorphous Sediment Not Reportable 02/12/25 06:18 Urine Bacteria None seen /hpf (NONE) 02/12/25 06:18 Hyaline Casts 2.05 /lpf 02/12/25 06:18 Influenza A (PCR) Negative (Negative) 02/12/25 05:13 Influenza Type B (PCR) Negative (Negative) 02/12/25 05:13 RSV (PCR) Negative (Negative) 02/12/25 05:13 SARS-CoV-2 (PCR) Negative (Negative) 02/12/25 05:13 All radiology interpretation(s) finalized by discharge Discharge Plan Discharge Patient Disposition: Home Clinical Impression: Acute exacerbation of chronic obstructive airways disease Condition: Stable Prescriptions: New prednisone 20 mg tablet 20 mg PO TID Qty: 15 0RF Rx Instructions: 1 p.o. 3 times daily x3 days, 1 p.o. twice daily x2 days, 1 p.o. daily x2 days No Action (DME) cam boot to left See Rx Instructions .Route .MEDSUPPLY Qty: 1 0RF Rx Instructions: As directed magnesium L-lactate [Magtab] 84 mg tablet extended release 84 mg PO BID Qty: 60 6RF nitroglycerin [Nitrostat] 0.4 mg tablet, sublingual 0.4 mg sublingual Q5M PRN (Reason: chest pain) Qty: 25 0RF Rx Instructions: do not exceed 3 doses per episode rosuvastatin 40 mg tablet 40 mg PO DAILY@17 (DME) ASO to left See Rx Instructions .Route .MEDSUPPLY Qty: 1 0RF Rx Instructions: As directed (DME) Rollator Walker See Rx Instructions .Route .MEDSUPPLY Qty: 1 0RF Rx Instructions: As directed Home metoprolol tartrate 50 mg tablet 50 mg PO Q12H Qty: 180 3RF morphine concentrate 100 mg/5 mL (20 mg/mL) solution 20 mg sublingual DIRECTED PRN (Reason: Pain/SOB) 14 Days Qty: 30 0RF Rx Instructions: 0.25ml-1ml q1H PRN may increase to 0.5ml-1ml Q1H PRN bisacodyl 10 mg suppository 10 mg MN DAILY PRN (Reason: constipation) Qty: 5 0RF Rx Instructions: 1 suppository per rectum every day PRN for constipation. diphenhydramine HCl 25 mg tablet 25 mg PO Q4H Qty: 5 0RF Rx Instructions: Take one tablet by mouth every 4 hours as needed for allergic reaction including: Rash and/or Itching hydroxyzine HCl 25 mg tablet 25 mg PO TID PRN (Reason: Itching) Qty: 5 0RF Rx Instructions: Take 1 table by mouth as needed three times a day for itching atropine 1 % drops 4 drp sublingual Q4H PRN (Reason: secretions) Qty: 5 0RF Rx Instructions: 4 drops SL q 4 hours PRN for terminal congestion/excessive secretions. ondansetron 4 mg tablet,disintegrating 4 mg translingual Q4H PRN (Reason: nausea) Qty: 5 0RF Rx Instructions: Dissolve 1 tablet under tongue every 4 hours PRN for nausea lorazepam 2 mg/mL concentrate 2 mg sublingual Q4H PRN (Reason: Anxiety/Seizure) Qty: 30 0RF Rx Instructions: 0.25ml-1ml q4H PRN Anxiety/Seizure Start 0.25ml may increase to 0.5ml-1ml q4H methylprednisolone [Medrol (Eze)] 4 mg tablets,dose pack See Rx Instructions .ROUTE .COMPLEX Qty: 21 0RF Rx Instructions: orally per package directions omega-3 fatty acids 1,000 mg Capsule 1,000 mg PO DAILY@08 acetaminophen 500 mg Tablet 500 mg PO Q6H PRN (Reason: Pain) levothyroxine 50 mcg tablet 50 mcg PO DAILY@08 fluticasone propion-salmeterol [Advair Diskus] 500-50 mcg/dose blister with device 1 inh inhalation BID 30 Days Qty: 60 2RF tiotropium bromide [Spiriva with HandiHaler] 18 mcg capsule, w/inhalation device 1 cap inhalation DAILY 30 Days Qty: 30 2RF Rx Instructions: puncture 1 cap using device; one dose = 2 inhalations clopidogrel [Plavix] 75 mg tablet 75 mg PO DAILY@0800 30 Days Qty: 30 0RF albuterol sulfate 90 mcg/actuation HFA aerosol inhaler 2 puff INHALATION QID PRN (Reason: Shortness Of Breath) Qty: 8.5 5RF Discharge Orders: Discharge ED (Routine); Ordered 02/12/25 Ordered By: Vasile Bledsoe Referrals: Katie Dobbs PA [Primary Care Provider, [facility]] Discharge Diet: Usual diet Discharge Activity: Resume usual activity Patient Instructions: Opioid Safety, Pain Management Activity Restrictions/Additional Instructions: Thank you for choosing [facility] for your healthcare needs today. It is very important that you follow up as instructed or that you return to the Emergency Department should you have concerns or if your condition changes or worsens in any way. You were seen today with complaint shortness of breath. Your oxygen saturation was normal on your baseline oxygen. Your breathing and lung sounds improved with nebulizer and steroids given in the emergency room. Recommend a steroid taper continue to use albuterol as needed continue all your other medications as previously prescribed. Follow-up with your primary care doctor. Print Language: Kyrgyz Coding Level of Care Code ED Visual Manager for Tevin Gonzalez
[2025-02-12 04:56] LABS: Troponin(5th) Baseline 14 ng/L (0-10)
[2025-02-12 05:03] LABS: Alanine Aminotransferase 14 U/L (0-33); Albumin Level 4.2 g/dL (3.5-5.2); Alkaline Phosphatase 89 U/L (35-105); Anion Gap 13.8 (5-19); Aspartate Amino Transferase 21 U/L (0-32); Blood Urea Nitrogen 7 mg/dL (8-23); Carbon Dioxide 27 mmol/L (22-29); Chloride 105 mmol/L (98-107); Creatinine Clr Calc Pharmacy 58.3017; Globulin 2.5 g/dL (1.3-4.6); Glomerular Filtration Rate 98.8 mL/min (90-130); Glucose 109 mg/dL (65-115); Osmolality Calculated 293 mOsm/kg (285-295); Potassium 3.8 mmol/L (3.5-5.1); Sodium 142 mmol/L (136-145); Total Bilirubin 0.3 mg/dL (0.15-1.2); Total Protein 6.7 g/dL (6.6-8.7)
[2025-02-12 05:24] LABS: ABG PCO2 52.3 mmHg (35-45); ABG PH Result 7.37 (7.35-7.45); Alveolar-Arterial Oxygen Gradi 20.3 mmHg (5-10); Arterial Blood Gas Hematocrit 39.2 % (37-47); Blood Gas Allen Test Pos; Blood Gas LPM 4.5 %; Blood Gas Operator Identificat gerca; Blood Gas Sample Site Radial, right; Blood Gas Sample Type Arterial; Carboxyhemoglobin 2.2 %THgb (0.4-20.1); HCO3 ABG 30.4 mmol/L (22-26); HGB O2 Sat 81.6 % (95-100); Ionized Calcium Level - ABG 1.2 mmol/L (1.1-1.4); Methemoglobin 0.9 % (0.4-1.5); Oxygen Device NC; Oxygen Saturation ABG 84.2; PO2 ABG 47.1 mmHg (80.0-100.0); PO2 FiO2 Ratio Arterial Blood 123; Potassium Level - ABG 3.7 mmol/L (3.5-5.0); Total Hemoglobin 12.8 g/dL (12-16)
[2025-02-12 05:58] LABS: Influenza A NEGATIVE (Negative); Influenza B NEGATIVE (Negative); Respiratory Syncytial Virus Ce NEGATIVE (Negative); SARS-CoV-2 PCR NEGATIVE (Negative)
[2025-02-12] MEDS: methylPREDNISolone sod succ 125 mg/2 mL INJ IVP (05:58)
[2025-02-12 06:31] LABS: Bilirubin Urine Negative (Negative); Blood Urine Trace (Negative); Glucose Urine UA Negative (Normal); Ketones Urine Negative (Negative); Leukocyte Esterase Urine Negative (Negative); Nitrate Urine Negative (Negative); Protein Urine 1+ (Negative); Specific Gravity, Urine 1.019 (1.005-1.030); Urine Appearance Clear (CLEAR); Urine Color Yellow (Yellow); pH Urine 5.5 (5-7)
[2025-02-12 06:34] LABS: Add Urine Microscopic? YES; Bacteria Urine None Seen /hpf; Hyaline Casts Urine 2.05 /lpf; Squamous Epithelial Cell Urine 0-5 /hpf (0-5); WBC Urine 0-5 /hpf (0-5)
[2025-02-12 06:38] LABS: Add Urine Culture? No
[2025-02-12] MEDS: LORazepam 1 MG/0.5 ML injection IVP (07:02)
[2025-02-12 07:08] LABS: Troponin 5 2HR 14.66 ng/L (0-10); Troponin 5 2HR Delta 0.66 ABS# (0-10)
--- NOTE | 2025-02-12 07:08 | ECG_ITS ---
[facility] [place] [facility] Date: 2025-02[facility]12 Pat Name: Cinthia Palacios Department: Room: Gender: Female Platemaker: : 1955 Requested By: Vasile Flynn Order Number: [id number] Shana MD: Marilyn Moore M.D. Measurements Intervals [place] Rate: 63 P: 73 SC: 126 QRS: 79 QRSD: 69 T: 85 QT: 400 QTc: 411 Interpretive Statements SINUS RHYTHM SEPTAL MYOCARDIAL INFARCTION , OF INDETERMINATE AGE [40+ ms Q WAVE IN V1/V2] Compared to ECG 02/12/2025 03:45:25 Myocardial infarct finding now present ST (T wave) deviation no longer present Electronically Signed On 02-12-2025 17:49:24 CDT by Marilyn Moroe M.D. [email or web address]
== END 2025-02-12 07:52 | disposition home or self-care (01) ==
PROVIDERS: Emergency Provider Family Medicine; PCP Physician Assistant
DX: J44.1 Chronic obstructive pulmonary disease with (acute) exacerbation (principal); Z11.52 Encounter for screening for COVID-19; F17.210 Nicotine dependence, cigarettes, uncomplicated; I25.10 Atherosclerotic heart disease of native coronary artery without angina pectoris; Z85.3 Personal history of malignant neoplasm of breast; E78.5 Hyperlipidemia, unspecified; I10 Essential (primary) hypertension
CPT/HCPCS: 36415; 36600; 71045; 80051; 80053; 81001; 82330; 82805; 84484; 85025; 87637; 93005; 94640; 96374; 96375; 99285; J2060; J2919; J9999

== ENCOUNTER 2025-02-25 11:26 | Emergency (ER) | payer MEDICARE, SELFPAY ==
[2025-02-25 11:30] VITALS: BP 91/52; PULSE 69; RESP 18; TEMP 36.6; O2SAT 98; BMI 28.9
--- NOTE | 2025-02-25 11:35 | USCV_ITS ---
Cinthia Palacios Age: 70 Gender: F : 1955 Exam Date: 02/25/2025 12:04 Ordering Phys: Vasile Bledsoe DO Technologist: R Exam Location: [facility] [place]_ Indication: RIGHT LEG PAIN HISTORY: Lower extremity pain-RIGHT PROCEDURES: Venous duplex imaging was performed in only the right lower extremity. The following venous structures were evaluated: common femoral vein, profunda vein, proximal portion of the greater saphenous vein, superficial femoral vein, and the popliteal vein. In addition, the posterior tibial and peroneal trunk were evaluated. FINDINGS: No evidence of DVT seen in any vessel visualized at this time. CONCLUSIONS No evidence of right lower extremity DVT. Anthony Marie MD (Electronically Signed) Final Date: 25 February 2025 12:43 S
--- NOTE | 2025-02-25 11:46 | ED_ITS ---
HPI - Extremity Problem 2 General: Chief complaint: Extremity Problem,Nontraumatic Stated complaint: R leg pain, swelling, numbness Time Seen by Provider: 02/25/25 11:35 History of Present Illness: 70-year-old female presents emergency ro om complaining of right leg swelling and pain. She has been progressively worse for the last week. Patient is normally on oxygen at home she denies any chest pain or any worsening shortness of breath. She has no known history of DVT or PE she is not on any anticoagulation at this time she does have a history of severe COPD. Associated symptoms: Deny chest pain, fever(s) or rash Related Data Home Medications ?Medication ?Instructions ?Recorded ?Confirmed acetaminophen 500 mg tablet 500 mg PO Q6H PRN Pain 07/1802/25/25 levothyroxine 50 mcg tablet 50 mcg PO DAILY@08 3 02/25/25 albuterol sulfate 2.5 mg/3 mL 2.5 mg inhalation QID PA N 02/25/25 02/25/25 (0.083 %) solution for nebulization Shortness Of Breat h cetirizine 10 mg tablet 10 mg PO DAILY 02/25/2511/20 cilostazol 100 mg tablet 100 mg PO BID 02/25/2502/25 clopidogrel 75 mg tablet 75 mg PO DAILY 02/25/2511/20 isosorbide mononitrate 30 mg 30 mg PO DAILY 02/25/25 0 02/25/25 tablet,extended release 24 hr metoprolol tartrate 50 mg tablet 50 mg PO BID 02/25/25 02/25/25 pantoprazole 40 mg tablet,delayed 40 mg PO DAILY 02/2502/25/25 release rosuvastatin 40 mg tablet 40 mg PO BEDTIME 02/25/25 Previous Rx's ?Medication ?Instructions ?Recorded cam boot to left #1 ea 04/12/23 ASO to left #1 ea 05/02/23 Rollator Walker #1 ea 05/25/23 albuterol sulfate 90 mcg/actuation 2 puff inhalation Q ID PRN 11/27/24 aerosol inhaler Shortness Of Breath #8.5 gra ms bisacodyl 10 mg rectal suppository 10 mg PA DAILY PRN constipation #5 01/16/25 ea diclofenac sodium 75 mg 75 mg PO Q12H PRN pain #20 t abs 02/25/25 tablet,delayed release Allergies Allergy/AdvReac Type Severity Reaction Status Date / Time diphenhydramine (From Allergy Intermediate ALGY-Hives Verified 08/13/24 14:44 Benadryl) sulfabenzamide Allergy Intermediate swelling Verified 08/13/24 14:44 Review of Systems 2 Const: Denies: fever(s) or chills Card: Denies: chest pain Resp: Denies: dyspnea GI: Denies: abdominal pain : Denies: dysuria, urinary frequency or urinary urgency Musc: Reports: extremity pain and extremity swelling; Denies: neck pain or back pain Skin/Breast: Denies: rash PFSH ED 2 PFSH: Medical History Peripheral arterial disease Benign essential HTN Viral pneumonia Influenza Hypoxia Acute bronchitis Acute on chronic respiratory failure with hypoxia and hypercapnia Acute exacerbation of chronic obstructive pulmonary disease Grade III diastolic dysfunction MURILLO (dyspnea on exertion) Atherosclerosis of coronary artery Hypertension Adult hypothyroidism Hyperlipemia Dyspnea on exertion Malaise and fatigue Chronic obstructive asthma with exacerbation Emphysema/COPD GERD (gastroesophageal reflux disease) Back pain Palpitations Hypothyroidism Insomnia Park's palsy Hx of hyperlipidemia Anxiety Hx of breast cancer CAD (coronary artery disease) History of hypertension PAD (peripheral artery disease) Syncope Bilateral carotid artery stenosis without cerebral infarction Surgical History H/O tubal ligation History of cholecystectomy Status post carotid endarterectomy Family History Mother Lung disease Family/Other Cancer Grandmother CAD (coronary artery disease) Stroke Father Bleeding disorder Denies family history of Diabetes Clotting disorder Dementia Chronic kidney disease (CKD) Suicide Anesthesia complication Social History Smoking and tobacco/nicotine status: current every day tobacco/nicotine user cigarettes Packs smoked per day: 1 Years cigarettes smoked: 31 [ Other cigarette details: Started at age 22] Alcohol intake: never Substance/Drug Use: never Physical Exam 2 Const: GENERAL APPEARANCE: cooperative ORIENTATION/CONSCIOUSNESS: Yes awake, Yes oriented to person, Yes oriented to place and Yes oriented to time HENMT: COMMON NORMALS: normocephalic, atraumatic and hearing grossly normal bilaterally HEAD & SCALP: normocephalic and atraumatic Resp: COMMON NORMALS: normal respiratory effort, No retractions, No use of accessory muscles and clear to auscultation bilaterally AUSCULTATION: clear to auscultation bilaterally Cardio: COMMON NORMALS: regular rate, regular rhythm and No murmurs present (Cardio) RATE: regular rate RHYTHM: regular rhythm GI: COMMON NORMALS: Soft to palpation and No hepatosplenomegaly present A USCULTATION: Yes normoactive bowel sounds PALPATION: Yes Soft to palpation, No Tenderness to palpation present (GI), No Guarding due to palpation present (GI) and Yes No hepatosplenomegaly present Extremity: COMMON NORMALS: normal to inspection, capillary refill normal, no clubbing, cyanosis or edema, no calf tenderness and no pedal edema Neuro: SENSORIUM/ORIENTATION: Yes oriented to person, Yes oriented to place and Yes oriented to time Skin: COMMON NORMALS: no rashes or lesions noted GENERAL SKIN EXAM: no rashes or lesions noted Course 2 Vital Signs: Vital signs: Vital Signs Temperature 97.9 F 02/25/25 11:30 Pulse Rate 69 02/25/25 13:37 Respiratory Rate 18 02/25/25 11:30 Blood Pressure 109/61 02/25/25 13:37 Pulse Oximetry 99 02/25/25 13:37 Oxygen Delivery Me thod Nasal Cannula 02/25/25 11:30 Oxygen Flow Rate 2 02/25/25 11:30 MDM - Extremity (Nontraumatic) Medical Decision Making Venous duplex negative. Laboratory test unremarkable there is no sign of nerve impingement at this point seems to be more soft tissue musculoskeletal. Will start on anti-inflammatory have her follow-up with primary care doctor return if she has further problems for symptoms return to the ER. Medical Records I reviewed the patient's medical records. Lab Data I reviewed the patient's lab results. 02/25/25 12:50 02/25/25 12:50 Laboratory Results WBC 10.19 10^3/uL (3.29-11.43) 02/25/25 12:50 RBC 4.58 10^6/uL (3.85-5.65) 02/25/25 12:50 Hgb 11.70 g/dL (11.27-16.99) 02/25/25 12:50 Hct 38.0 % (36-47) 02/25/25 12:50 MCV 83.0 fl (85-98) L 02/25/25 12:50 MCH 25.5 pg (27-33) L 02/25/25 12:50 MCHC 30.8 g/dL (30-55) 02/25/25 12:50 RDW 15.4 % (12.1-15.1) H 02/25/25 12:50 Plt Count 299 10^3/cmm (157-399) 02/25/25 12:50 MPV 9.6 fL (7.4-10.4) 02/25/25 12:50 Neut % (Auto) 67.4 % 02/25/25 12:50 Lymph % (Auto) 22.9 % 02/25/25 12:50 Lee % (Auto) 8.6 % 02/25/25 12:50 Eos % (Auto) 0.1 % 02/25/25 12:50 Baso % (Auto) 0.4 % 02/25/25 12:50 Neut # (Auto) 6.87 10^3/uL (1.8-7.7) 02/25/25 12:50 Lymph # (Auto) 2.3 10^3/uL (0.8-4.8) 02/25/25 12:50 Lee # (Auto) 0.9 10^3/uL (0.2-0.9) 02/25/25 12:50 Eos # (Auto) 0.0 10^3/uL (0.0-0.8) 02/25/25 12:50 Baso # (Auto) 0.0 10^3/uL (0.0-0.1) 02/25/25 12:50 Nucleated RBC % (auto) 0 % 02/25/25 12:50 Nucleated RBCs # 0.0 /100WBC 02/25/25 12:50 Sodium 138 mmol/L (136-145) 02/25/25 12:50 Potassium 3.7 mmol/L (3.5-5.1) 02/25/25 12:50 Chloride 100 mmol/L (98-107) 02/25/25 12:50 Carbon Dioxide 27 mmol/L (22-29) 02/25/25 12:50 Anion Gap 14.7 (5-19) 02/25/25 12:50 BUN 8 mg/dL (8-23) 02/25/25 12:50 Creatinine 0.7 mg/dL (0.5-0.9) 02/25/25 12:50 GFR Calculation Not Reportable 02/25/25 12:50 Glucose 80 mg/dL (65-115) 02/25/25 12:50 Calculated Osmolality 283 mOsm/kg (285-295) L 02/25/25 12:50 Calcium 8.9 mg/dL (8.5-10.5) 02/25/25 12:50 Total Bilirubin 0.2 mg/dL (0.15-1.2) 02/25/25 12:50 AST 20 U/L (0-32) 02/25/25 12:50 ALT 22 U/L (0-33) 02/25/25 12:50 Alkaline Phosphatase 86 U/L (35-105) 02/25/25 12:50 Total Protein 6.6 g/dL (6.6-8.7) 02/25/25 12:50 Albumin 3.4 g/dL (3.5-5.2) L 02/25/25 12:50 Globulin 3.2 g/dL (1.3-4.6) 02/25/25 12:50 All radiology interpretation(s) finalized by discharge Discharge Plan Discharge Patient Disposition: Home Clinical Impression: Leg pain, right Condition: Stable Prescriptions: New diclofenac sodium 75 mg tablet,delayed release (DR/EC) 75 mg PO Q12H PRN (Reason: pain) Qty: 20 0RF No Action (DME) cam boot to left See Rx Instructions .Route .MEDSUPPLY Qty: 1 0RF Rx Instructions: As directed (DME) ASO to left See Rx Instructions .Route .MEDSUPPLY Qty: 1 0RF Rx Instructions: As directed (DME) Rollator Walker See Rx Instructions .Route .MEDSUPPLY Qty: 1 0RF Rx Instructions: As directed Home bisacodyl 10 mg suppository 10 mg PA DAILY PRN (Reason: constipation) Qty: 5 0RF acetaminophen 500 mg Tablet 500 mg PO Q6H PRN (Reason: Pain) levothyroxine 50 mcg tablet 50 mcg PO DAILY@08 albuterol sulfate 90 mcg/actuation HFA aerosol inhaler 2 puff INHALATION QID PRN (Reason: Shortness Of Breath) Qty: 8.5 5RF metoprolol tartrate 50 mg tablet 50 mg PO BID cilostazol 100 mg tablet 100 mg PO BID albuterol sulfate 2.5 mg /3 mL (0.083 %) solution for nebulization 2.5 mg inhalation QID PRN (Reason: Shortness Of Breath) isosorbide mononitrate 30 mg tablet extended release 24 hr 30 mg PO DAILY clopidogrel 75 mg tablet 75 mg PO DAILY pantoprazole 40 mg tablet,delayed release (DR/EC) 40 mg PO DAILY rosuvastatin 40 mg tablet 40 mg PO BEDTIME cetirizine 10 mg Tablet 10 mg PO DAILY Discharge Orders: Discharge ED (Routine); Ordered 02/25/25 Ordered By: Vasile Bledsoe Referrals: Katie Dobbs PA [Primary Care Provider, Physicians Research And Development Tester] Discharge Diet: Usual diet Discharge Activity: Increase activity as tolerated Patient Instructions: Opioid Safety, Pain Management Activity Restrictions/Additional Instructions: Thank you for choosing [facility] for your healthcare needs today. It is very important that you follow up as instructed or that you return to the Emergency Department should you have concerns or if your condition changes or worsens in any way. You were seen in the emergency room for complaints of leg pain. There is no sign of blood clot in the legs remainder of exam was normal there is no trauma. You are given diclofenac to use as needed follow-up with your primary care physician. Print Language: Macanese Coding Level of Care Code ED Length Control Tester for Tevin Gonzalez
--- NOTE | 2025-02-25 12:14 | PC.PHAR ---
Addendum entered by Dede Leon 02/25/25 12:21: MEDICATIONS ADDED TO WRONG PT 02/25/25- Original Note: Pt admitted to [facility]-transitional medications dc'd from chart are the following: Ventolin inhaler 2p qid prn Atropine 1% drops 4 gtts sublingual q4h prn Plavix 75mg daily Benadryl 25mg q4h prn Advair 500-50 1 puff bid Hydroxyzine 25mg tid prn lorazepam 2mg/ml 2mg sublingual q4h prn Mag tab 84 bid Morphine conc. 100mg/5ml 0.25-1ml q1 hour rn Nitrostat 0.4 sublingual Teller 3 fish oil daily Zofran 4mg odt 1 q4h prn nausea Spiriva Handihaler 18mcg 2 inhalations daily
--- NOTE | 2025-02-25 12:44 | PC.PHAR ---
Addendum entered by Dede Leon 02/25/25 12:59: Pts medications are verified and correct. Apologies. Original Note: Pts med rec is not complete yet. Working on correct list for patient. Meds were entered and dc's on wrong pt.02/25/25
[2025-02-25 13:10] LABS: Basophils % 0.4 %; Eosinophils % 0.1 %; Lymphocytes # 2.3 10^3/uL (0.8-4.8); Lymphocytes % 22.9 %; Mean Corpuscular HGB Conc 30.8 g/dL (30-55); Mean Corpuscular Hemoglobin 25.5 pg (27-33); Mean Platelet Volume 9.6 fL (7.4-10.4); Monocytes # 0.9 10^3/uL (0.2-0.9); Monocytes % 8.6 %; Neutrophils # 6.87 10^3/uL (1.8-7.7); Neutrophils % 67.4 %; Nucleated Red Blood Cells % 0 %; Platelet Count 299 10^3/cmm (157-399); Red Blood Count 4.58 10^6/uL (3.85-5.65); Red Cell Distribution Width 15.4 % (12.1-15.1); White Blood Count 10.19 10^3/uL (3.29-11.43)
[2025-02-25 13:22] LABS: Alanine Aminotransferase 22 U/L (0-33); Albumin Level 3.4 g/dL (3.5-5.2); Alkaline Phosphatase 86 U/L (35-105); Anion Gap 14.7 (5-19); Aspartate Amino Transferase 20 U/L (0-32); Blood Urea Nitrogen 8 mg/dL (8-23); Calcium 8.9 mg/dL (8.5-10.5); Carbon Dioxide 27 mmol/L (22-29); Chloride 100 mmol/L (98-107); Creatinine Clr Calc Pharmacy 57.4689; Globulin 3.2 g/dL (1.3-4.6); Glucose 80 mg/dL (65-115); Osmolality Calculated 283 mOsm/kg (285-295); Potassium 3.7 mmol/L (3.5-5.1); Sodium 138 mmol/L (136-145); Total Bilirubin 0.2 mg/dL (0.15-1.2); Total Protein 6.6 g/dL (6.6-8.7)
[2025-02-25 13:37] VITALS: BP 109/61; PULSE 69; O2SAT 99
== END 2025-02-25 13:35 | disposition home or self-care (01) ==
PROVIDERS: Emergency Provider Family Medicine; PCP Physician Assistant
DX: M79.604 Pain in right leg (principal); Z79.02 Long term (current) use of antithrombotics/antiplatelets; F17.210 Nicotine dependence, cigarettes, uncomplicated; I25.10 Atherosclerotic heart disease of native coronary artery without angina pectoris; I10 Essential (primary) hypertension; J44.9 Chronic obstructive pulmonary disease, unspecified
CPT/HCPCS: 80053; 85025; 93971; 99284

== ENCOUNTER 2025-05-19 15:28 | Inpatient (IN) | payer MEDICARE, SELFPAY ==
[2025-05-19] VITALS (26 sets, daily range): BP systolic 74–142; BP diastolic 50–122; PULSE 86–164; RESP 22–30; TEMP 36.7; O2SAT 90–98
--- OUTSIDE RECORDS SUMMARY | 2025-05-19 15:32 | XMS_ITS | Encounter Summary ---
Author Organization [facility] Address [address] [place] [address] Care Team Providers Care Accounting Software Specialist Name Role Phone Unavailable Primary Care Provider Unavailabl e Encounter Details Date Type Department Care Team (Late st Contact Info) Description 07/07/2015 Lab Requisition [facility] [place] [address] [place] [id number] Lorenzo Gregory, LAKESHA [address] [place] [address] Social History Tobacco Use Types Packs/Day Years Used Date Smoking Tobacco: Every Day Cigarettes 1 40 Comments Unknown Sex and Gender Information Value Date Recorded Sex Assigned at Not on file 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 Gender Identity Not on file Sexual Orientation [...] - 4.20 uIU/mL 07/07/2015 11:25 PM CDT [facility] Blood 07/07/2015 10:3 0 PM CDT 07/07/2015 10:30 PM CDT us Lorenzo CROWDER CHEMISTRY ORDERABLES Final R esult Performing Organization Address City/State/[facility] Co de Phone Number [facility] CLIA # [id number] [address] [place] [address] * (ABNORMAL) LIPID PANEL (07/07/2015 10:30 PM CDT) CHOLESTEROL 259(H) <200 mg/dL 07/07/2015 11:25 PM CDT [facility] TRIGLYCERIDE 85 <150 mg/dL 07/07/2015 11:25 PM CDT [facility] HDL 78(H) 40 - 59 mg/dL 07/07/2015 11:25 PM CDT [facility] LDL CALCULATED 164(H) <100 mg/dL 07/07/2015 11:25 PM CDT [facility] NON-HDL CHOLESTEROL 181(H) <130 mg/dL 07/07/2015 11:25 PM CDT [facility] Blood 07/07/2015 10:3 0 PM CDT 07/07/2015 10:30 PM CDT Narrative [facility] - 07/07/2015 11:25 PM CDT TOTAL CHOLESTEROL mg/dL Desirable <200 Borderline high 200-239 High >=240 TRIGLYCERIDES mg/dL Normal <150 Borderline high 150-199 High 200-499 Very high >=500 HDL CHOLESTEROL mg/dL Low <40 Normal 40-59 Desirable >=60 LDL CHOLESTEROL mg/dL Optimal <100 Low risk 100-129 Borderline high 130-159 High 160-189 Very high >=190 NON HDL CHOLESTEROL mg/dL Optimal <130 Near Optimal 130-159 Borderline High 160-189 High 190-219 Very high >=220 Based on AHA/NCEP Guidelines us Lorenzo CROWDER CHEMISTRY ORDERABLES Final R esult Performing Organization Address City/[facility]/ZIP Co de Phone Number [facility] [place] CLIA # [id number] [address] [address] * (ABNORMAL) COMPREHENSIVE METABOLIC PANEL (07/07/2015 10:30 PM CDT) SODIUM 138 136 - 145 mmol/L 07/07/2015 11:25 PM CDT [facility] [place] POTASSIUM 4.0 3.5 - 5.1 mmol/L 07/07/2015 11:25 PM CDT [facility] CHLORIDE 97(L) 98 - 107 mmol/L 07/07/2015 11:25 PM CDT [facility] [place] CO2 27 22 - 29 mmol/L 07/07/2015 11:25 PM CDT [facility] CALCIUM 9.7 8.8 - 10.2 mg/dL 07/07/2015 11:25 PM CDT [facility] BUN 5(L) 8 - 23 mg/dL 07/07/2015 11:25 PM CDT [facility] CREATININE 0.60 0.51 - 0.95 mg/dL 07/07/2015 11:25 PM CDT [facility] [place] GLUCOSE 75 74 - 106 mg/dL 07/07/2015 11:25 PM CDT [facility] TOTAL PROTEIN 8.7 6.6 - 8.7 g/dL 07/07/2015 11:25 PM CDT [facility] ALBUMIN 4.7 3.5 - 5.2 g/dL 07/07/2015 11:25 PM CDT [facility] [place] BILIRUBIN TOTAL 0.3 0.0 - 1.2 mg/dL 07/07/2015 11:25 PM CDT [facility] [place] ALKALINE PHOSPHATASE 119(H) 35 - 104 U/L 07/07/2015 11:25 PM CDT [facility] [place] AST 34 10 - 35 U/L 07/07/2015 11:25 PM CDT [facility] [place] ALT 34 10 - 35 U/L 07/07/2015 11:25 PM CDT [facility] [place] GFR >60 >=60 mL/min/1.7 3 sq meter 07/07/2015 11:25 PM CDT [facility] Comment: eGFR has not been validated for [...] mL/min/1.7 3 sq meter 07/07/2015 11:25 PM CDT [facility] ANION GAP 14 12 - 20 mmol/L 07/07/2015 11:25 PM CDT [facility] Blood 07/07/2015 10:3 0 PM CDT 07/07/2015 10:30 PM CDT Lorenzo CROWDER CHEMISTRY ORDERABLES Final R esult [facility] CLIA # [id number] [address] [place] [address] * (ABNORMAL) CBC WITH DIFFERENTIAL (07/07/2015 10:30 PM CDT) WBC 7.8 4.0 - 10.0 K/uL 07/07/2015 10:57 PM CDT [facility] RBC 6.01(H) 3.93 - 5.22 M/uL 07/07/2015 10:57 PM CDT [facility] HEMOGLOBIN 15.7 11.2 - 15.7 g/dL 07/07/2015 10:57 PM CDT [facility] HEMATOCRIT 47.0(H) 34.1 - 44.9 % 07/07/2015 10:57 PM CDT [facility] MCV 78.2(L) 79.4 - 94.8 fL 07/07/2015 10:57 PM CDT [facility] [place] MCH 26.1 25.6 - 32.2 pg 07/07/2015 10:57 PM [facility] [place] MCHC 33.4 32.2 - 35.5 g/dL 07/07/2015 10:57 PM [facility] [place] RDW 16.6(H) 11.0 - 14.5 % 07/07/2015 10:57 PM [facility] [place] RDW-STDEV 46.4 36.9 - 56.9 fL 07/07/2015 10:57 PM [facility] [place] PLATELETS 389(H) 163 - 337 K/uL 07/07/2015 10:57 PM [facility] [place] MPV 10.3 10.0 - 14.8 fL 07/07/2015 10:57 PM [facility] [place] NEUTROPHILS 52 34 - 71 % 07/07/2015 10:57 PM [facility] [place] LYMPHOCYTES 42 19 - 52 % 07/07/2015 10:57 PM [facility] [place] MONOCYTES 6 5 - 13 % 07/07/2015 10:57 PM [facility] [place] EOSINOPHILS 0(L) 1 - 6 % 07/07/2015 10:57 PM [facility] [place] BASOPHILS 0 0 - 1 % 07/07/2015 10:57 PM [facility] [place] NEUTROPHIL ABSOLUTE 4.01 1.56 - 6.13 K/uL 07/07/2015 10:57 PM [facility] [place] LYMPHOCYTE ABSOLUTE 3.28 1.20 - 3.40 K/uL 07/07/2015 10:57 PM [facility] [place] MONOCYTE ABSOLUTE 0.43(H) 0.24 - 0.36 K/uL 07/07/2015 10:57 PM [facility] [place] EOSINOPHIL ABSOLUTE 0.01(L) 0.04 - 0.36 K/uL 07/07/2015 10:57 PM [facility] [place] BASOPHILS ABSOLUTE 0.01 0.01 - 0.08 K/uL 07/07/2015 10:57 PM [facility] [place] IMMATURE GRANULOCYTES 0 % 07/07/2015 10:57 PM CDT [facility] IMMATURE GRANULOCYTES ABSOLUTE 0.01 K/uL 07/07/2015 10:57 PM CDT [facility] Blood 07/07/2015 10:3 0 PM CDT 07/07/2015 10:30 PM CDT us Lorenzo CROWDER HEMATOLOGY ORDERABLES Final Result [facility] [place] CLIA # [id number] [address] [place] [address] documented in this encounter Visit Diagnoses Not on filedocumented in this encounter
--- OUTSIDE RECORDS SUMMARY | 2025-05-19 15:32 | XMS_ITS | Clinical Summary ---
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 Gender Identity Not on file Sexual Orientation [...] 05/06/2014 OSTEOPOROSIS SCREENING 2019 INFLUENZA VACCINE (#1) 2025 RSV VACCINE (60+ or ) (1 - 1-dose 75+ series) 2029 Procedures Procedure Name Priority Date/Time Associated Diagnosis Comments MAMMOGRAM REPORT Routine 05/06/2014 from Last 3 Months or Most Recently Relevant to Health Maintenance Results * MAMMOGRAM REPORT (05/06/2014) us Abstract Spg Provider MAMMO ORDERABLES Final Res ult EXTERNAL RADIOLOGY from Last 3 Months or Most Recently Relevant to Health Maintenance Insurance [id number] [place] [address] [address] [facility] [id number] HMO
--- OUTSIDE RECORDS SUMMARY | 2025-05-19 15:32 | XMS_ITS | Encounter Summary ---
Author Organization [facility] Address [address] [place] [address] Care Team Providers Care Parts Counter Representative Name Role Phone Unavailable Primary Care Provider Unavailabl e Encounter Details Date Type Department Care Team (Late st Contact Info) Description 08/16/2016 Lab Requisition [facility] [place] [address] [place] [phone] Colin Gómez, DO NO ADDRESS ON FILE Social History Tobacco Use Types Packs/Day Years Used Date Smoking Tobacco: Every Day Cigarettes 1 40 Comments Unknown Sex and Gender Information Value Date Recorded Sex Assigned at Not on file 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 Gender Identity Not on file Sexual Orientation Not on file documented as of this encounter Plan of Treatment Not on file documented as of this encounter Procedures Procedure Name Priority Date/Time Associated Diagnosis Comments LIPID PANEL Routine 08/16/2016 8:11 PM VEGETABLE VENDOR documented in this encounter Results * (ABNORMAL) LIPID PANEL (08/16/2016 8:11 PM VEGETABLE VENDOR) CHOLESTEROL 221(H) <200 mg/dL 08/16/2016 11:48 PM [facility] TRIGLYCERIDE 81 <150 mg/dL 08/16/2016 11:48 PM [facility] HDL 57 40 - 59 mg/dL 08/16/2016 11:48 PM [facility] LDL CALCULATED 148(H) <100 mg/dL 08/16/2016 11:48 PM [facility] NON-HDL CHOLESTEROL 164(H) <130 mg/dL 08/16/2016 11:48 PM [facility] Blood Collection / Unknown 08/16/2016 8:11 PM VEGETABLE VENDOR 08/16/2016 9:08 PM VEGETABLE VENDOR Narrative [facility] - 08/16/2016 11:48 PM VEGETABLE VENDOR TOTAL CHOLESTEROL mg/dL Desirable <200 Borderline high 200-239 High >=240 TRIGLYCERIDES mg/dL Normal <150 Borderline high 150-199 High 200-499 Very high >=500 HDL CHOLESTEROL mg/dL Low <40 Normal 40-59 Desirable >=60 NON HDL CHOLESTEROL mg/dL Optimal <130 Near Optimal 130-159 Borderline High 160-189 Very High >=190 Calculated LDL mg/dL Optimal <100 Near Optimal 100-129 Borderline High 130-159 High 160-189 Very High >=190 ATPIII Guidelines Reference Ranges for Lipid Panels (NCEP/AMA) us Colin Gómez DO CHEMISTRY ORDERABLES Final Resu lt [facility] CLIA # [id number] [address] [place] [address] documented in this encounter Visit Diagnoses Not on filedocumented in this encounter
--- OUTSIDE RECORDS SUMMARY | 2025-05-19 15:32 | XMS_ITS | Encounter Summary ---
Author Organization [facility] Address [address] [place] [address] Care Team Providers Care Planning Official Name Role Phone Unavailable Primary Care Provider Unavailabl e Encounter Details Date Type Department Care Team (Late st Contact Info) Description 01/17/2017 Lab Requisition [facility] General Laboratory Services [place] [address] [place] [phone] Colin Gómez DO NO ADDRESS ON FILE Social History Tobacco Use Types Packs/Day Years Used Date Smoking Tobacco: Every Day Cigarettes 1 40 Comments Unknown Sex and Gender Information Value Date Recorded Sex Assigned at Not on file 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 Gender Identity Not on file Sexual Orientation [...] - 4.20 uIU/mL 01/18/2017 12:37 AM CDT [facility] Blood 01/17/2017 7:44 PM CDT 01/17/2017 11:47 PM CDT us Colin Gómez DO CHEMISTRY ORDERABLES Final Resu lt [facility] CLIA # [id number] [address] [id number] * (ABNORMAL) LIPID PANEL (01/17/2017 7:44 PM CDT) CHOLESTEROL 189 <200 mg/dL 01/18/2017 12:37 AM CDT [facility] TRIGLYCERIDE 170(H) <150 mg/dL 01/18/2017 12:37 AM CDT [facility] HDL 67(H) 40 - 59 mg/dL 01/18/2017 12:37 AM CDT [facility] LDL CALCULATED 88 <100 mg/dL 01/18/2017 12:37 AM T [facility] NON-HDL CHOLESTEROL 122 <130 mg/dL 01/18/2017 12:37 AM T [facility] Blood 01/17/2017 7:44 PM CDT 01/17/2017 11:47 PM CDT Narrative [facility] - 01/18/2017 12:37 AM CDT TOTAL CHOLESTEROL mg/dL Desirable <200 Borderline [...] Gómez DO CHEMISTRY ORDERABLES Final Resu lt [facility] CLIA # [id number] [address] [place] [address] documented in this encounter Visit Diagnoses Not on filedocumented in this encounter
--- OUTSIDE RECORDS SUMMARY | 2025-05-19 15:32 | XMS_ITS | Encounter Summary ---
Author Organization [facility] Address [address] [place] [address] Care Team Providers Care Manufacturing Support Engineer Name Role Phone Unavailable Primary Care Provider Unavailabl e Encounter Details Date Type Department Care Team (Late st Contact Info) Description 09/06/2016 Lab Requisition [facility] General Laboratory Services [place] [address] [address] Colin Gómez DO NO ADDRESS ON FILE Social History Tobacco Use Types Packs/Day Years Used Date Smoking Tobacco: Every Day Cigarettes 1 40 Comments Unknown Sex and Gender Information Value Date Recorded Sex Assigned at Not on file 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 Gender Identity Not on file Sexual Orientation Not on file documented as of this encounter Plan of Treatment Not on file documented as of this encounter Procedures Procedure Name Priority Date/Time Associated Diagnosis Comments TSH Routine 09/06/2016 8:53 PM CONCESSION CASHIER documented in this encounter Results * TSH (09/06/2016 8:53 PM CONCESSION CASHIER) TSH 1.76 0.27 - 4.20 uIU/mL 09/06/2016 10:45 PM CONCESSION CASHIER [facility] Blood 09/06/2016 8:53 PM CONCESSION CASHIER 09/06/2016 9:41 PM CONCESSION CASHIER Colin Gómez DO CHEMISTRY ORDERABLES Final Resu lt [facility] CLIA # [id number] [address] [place] [address] [address] [place] [address] documented in this encounter Visit Diagnoses Not on filedocumented in this encounter
--- OUTSIDE RECORDS SUMMARY | 2025-05-19 15:32 | XMS_ITS | Patient Health Record ---
Author Organization [facility] Address [address] [place] [id number] Care Team Providers Care Wall Covering Installer Name Role Phone Vasile Bledsoe DO Primary Care Provider Mark Chauhan MD [phone] Allergies Allergen (clinical drug ingredient) Drug/Non Drug Allergy documented on EMR Reaction Allergy Type Onset Date Status diphenhydramine Benadryl (uncoded) rash Allergy Active Sulfa drugs (uncoded) rash, itching Allergy Active Reason For Referral No Information Medications Medication SIG (Take, Route, Frequency, Duration) Notes Start Date End Date Status aspirin 81 mg 1 tab orally QD, PRN ; Duration: 30 day(s) Active Ventolin HFA CFC free 90 mcg/inh 2 puffs inhaled every 4 hours as needed; Duration: 30 day(s) Active Advair Diskus 250 mcg-50 mcg 1 puff inha led 2 times a day; Duration: 30 day(s) Active levothyroxine 25 mcg (0.025 mg) 1 tab orally once a day; Duration: 30 day(s) Active PriLOSEC OTC 20 mg 1 tab orally once a day; Duration: 14 day(s) Active doxycycline hyclate 100 mg 1 cap orally once a day; Duration: 10 day(s) Active pravastatin 80 mg 1 tab orally once a day (at bedtime); Duration: 30 day(s) Active cyclobenzaprine 10 mg 1 tab orally 3 kailee es a day Active [place] 325 mg-5 mg 1 tab po orally Q4H prn pain Active alfentanil 500 mcg/ml 1-2 ml intravenous may repeat PRN for procedural anxiety/ pain Active midazolam 1 mg/ml 1-2 mg intravenous m ay repeat PRN for procedural anxiety Active benzonatate 100 mg 1 cap orally 3 times a day; Duration: 5 day(s) Active fentanyl 50 mcg/ml 1-2 ml intravenous m ay repeat PRN for procedural anxiety/ pain Active loratidine 10 mg 1 tab daily; Duratio n: 30 days Active Problems Problem Type SNOMED Code ICD Code Onset Dates Problem Status W/U Status Risk Notes Problem Cervical spondylosis without myelopathy (647700356) Cervical spondylosis without myelopathy (721.0) Active confirmed Problem Lumbosacral spondylosis without myelopathy (77862360) Lumbosacral spondylosis without myelopathy (721.3) Active confirmed Problem Spasm (16220968) Muscle spasm (728.85) Active confirmed Problem Sleep dysfunction with sleep stage disturbance (404003863) Dysfunctions associated with sleep stages or arousal from sleep (780.56) Active confirmed Problem Displacement of lumbar intervertebral disc without myelopathy (15011979) Lumbar (w/out myelopathy) intervertebral disc disorder (722.10) Active confirmed Problem Long-term drug therapy (387418275) LONG-TERM USE MEDS NEC (V58.69) Active confirmed R/O substance abuse Problem Anxiety state (101445830) Anxiety State, other, specified: procedure related (300.09) Active confirmed Problem Displacement of cervical intervertebral disc without myelopathy (62694310) Cervical (w/out myelopathy) intervertebral disc disorder (722.0) Active confirmed Problem Sacroiliitis (97518840) Sacroiliitis (720.2) Active confirmed Problem Low back pain (097172268) Low back pain (724.2) Active confirmed Problem Neck pain (82645761) Neck pain (723.1) Active confirmed Plan Of Treatment No Information Insurance Providers Payer Name Payer Address Payer Phone Subscriber Number Group Number Insured Name Patient Relationship to Insured Coverage Start Date Coverage End Date [place] [employer] [address] [place] [address] [id number] Cinthia Palacios Self - patient is the insured Medical (General) History Medical History History ICD Code Fatigue Chronic obstructive pulmonary disease Anxiety disorder Depression Neck pain Gastroesophageal reflux disease Cough Headache Hiatal hernia Peptic ulcer disease Surgical History Surgery Date(Month/Year) Cholecystectomy 1995 Tubal ligation Hospitalization History Reason Date(Month/Year) Intestinal issues 2006 Chest pain 02/2011
--- OUTSIDE RECORDS SUMMARY | 2025-05-19 15:32 | XMS_ITS | Encounter Summary ---
Author Organization [facility] Address [address] [place] [address] Care Team Providers Care Driver'S License Reviewing Officer Name Role Phone Unavailable Primary Care Provider Unavailabl e Encounter Details Date Type Department Care Team (Late st Contact Info) Description 06/07/2016 Lab Requisition [facility] General Laboratory Services [place] [address] [place] [phone] Bertram Ryder DO NO ADDRESS ON FILE Social History Tobacco Use Types Packs/Day Years Used Date Smoking Tobacco: Every Day Cigarettes 1 40 Comments Unknown Sex and Gender Information Value Date Recorded Sex Assigned at Not on file 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:52 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 Gender Identity Not on file Sexual Orientation [...] - 30 mm/Hr 06/07/2016 11:23 PM CDT [facility] Blood Collection / Unknown 06/07/2016 9:32 PM CDT 06/07/2016 9:37 PM CDT us Bertram Ryder DO HEMATOLOGY ORDERABLES Final Result [facility] CLIA # [id number] [address] [place] [address] * (ABNORMAL) CBC WITH DIFFERENTIAL (06/07/2016 9:32 PM CDT) WBC 7.6 4.0 - 10.0 K/uL 06/07/2016 10:32 PM [facility] RBC 5.96(H) 3.93 - 5.22 M/uL 06/07/2016 10:32 PM [facility] HEMOGLOBIN 15.8(H) 11.2 - 15.7 g/dL 06/07/2016 10:32 PM [facility] HEMATOCRIT 47.2(H) 34.1 - 44.9 % 06/07/2016 10:32 PM [facility] MCV 79.2(L) 79.4 - 94.8 fL 06/07/2016 10:32 PM [facility] MCH 26.5 25.6 - 32.2 pg 06/07/2016 10:32 PM [facility] MCHC 33.5 32.2 - 35.5 g/dL 06/07/2016 10:32 PM [facility] RDW 16.0(H) 11.0 - 14.5 % 06/07/2016 10:32 PM [facility] RDW-STDEV 46.0 36.9 - 56.9 fL 06/07/2016 10:32 PM [facility] PLATELETS 363(H) 163 - 337 K/uL 06/07/2016 10:32 PM [facility] MPV 10.7 10.0 - 14.8 fL 06/07/2016 10:32 PM [facility] NEUTROPHILS 64 34 - 71 % 06/07/2016 10:32 PM [facility] LYMPHOCYTES 30 19 - 52 % 06/07/2016 10:32 PM [facility] MONOCYTES 6 5 - 13 % 06/07/2016 10:32 PM [facility] EOSINOPHILS 0(L) 1 - 6 % 06/07/2016 10:32 PM [facility] BASOPHILS 0 0 - 1 % 06/07/2016 10:32 PM [facility] NEUTROPHIL ABSOLUTE 4.86 1.56 - 6.13 K/uL 06/07/2016 10:32 PM [facility] LYMPHOCYTE ABSOLUTE 2.25 1.20 - 3.40 K/uL 06/07/2016 10:32 PM [facility] MONOCYTE ABSOLUTE 0.46(H) 0.24 - 0.36 K/uL 06/07/2016 10:32 PM [facility] EOSINOPHIL ABSOLUTE 0.01(L) 0.04 - 0.36 K/uL 06/07/2016 10:32 PM [facility] BASOPHILS ABSOLUTE 0.02 0.01 - 0.08 K/uL 06/07/2016 10:32 PM [facility] IMMATURE GRANULOCYTES 0 % 06/07/2016 10:32 PM [facility] IMMATURE GRANULOCYTES ABSOLUTE 0.02 K/uL 06/07/2016 10:32 PM [facility] Blood Collection / Unknown 06/07/2016 9:32 PM CDT 06/07/2016 9:37 PM CDT us Bertram Ryder DO HEMATOLOGY ORDERABLES Final Result [facility] CLIA # [id number] [address] [place] [address] documented in this encounter Visit Diagnoses Not on filedocumented in this encounter
--- OUTSIDE RECORDS SUMMARY | 2025-05-19 15:32 | XMS_ITS | Encounter Summary ---
Author Organization [facility] Address [address] [place] [address] Care Team Providers Care Manager Disaster Recovery Name Role Phone Unavailable Primary Care Provider Unavailabl e Encounter Details Date Type Department Care Team (Late st Contact Info) Description 05/03/2016 Lab Requisition [facility] General Laboratory Services [place] [address] [place] [phone] Luther Pandey MD NO ADDRESS ON FILE Social History Tobacco Use Types Packs/Day Years Used Date Smoking Tobacco: Every Day Cigarettes 1 40 Comments Unknown Sex and Gender Information Value Date Recorded Sex Assigned at Not on file 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 Gender Identity Not on file Sexual Orientation [...] - 70 % 05/03/2016 11:54 PM CDT [facility] LYMPHOCYTES RELATIVE 40 20 - 45 % 05/03/2016 11:54 PM T [facility] MONOCYTES RELATIVE 8 2 - 8 % 05/03/2016 11:54 PM [facility] EOSINOPHILS RELATIVE 1 0 - 5 % 05/03/2016 11:54 PM T [facility] NEUTROPHILS ABSOLUTE COUNT 4.54 1.78 - 5.38 K/uL 05/03/2016 11:54 PM CDT [facility] LYMPHOCYTES ABSOLUTE 3.56 1.20 - 4.00 K/uL 05/03/2016 11:54 PM T [facility] MONOCYTES ABSOLUTE 0.71 0.30 - 0.82 K/uL 05/03/2016 11:54 PM [facility] EOSINOPHILS ABSOLUTE 0.09 0.04 - 0.54 K/uL 05/03/2016 11:54 PM [facility] TOTAL CELLS COUNTED IN DIFF 100 05/03/2016 11:54 PM [facility] PLATELET EST. Consistent with Count 05/03/2016 11:54 PM [facility] RBC MORPHOLOGY Normal 05/03/2016 11:54 PM [facility] Blood 05/03/2016 4:07 PM CDT 05/03/2016 8:23 PM CDT Kazakh Joaquín Sotelo MD HEMATOLOGY ORDE RABLES [facility] Final Result [facility] CLIA # [id number] [address] [place] [address] * (ABNORMAL) TSH (05/03/2016 4:07 PM CDT) TSH 6.69(H) 0.27 - 4.20 uIU/mL 05/03/2016 10:58 PM T [facility] Blood 05/03/2016 4:07 PM CDT 05/03/2016 8:23 PM CDT Luther Sotelo MD CHEMISTRY ORDER DESI Final Result Performing Organization Address City/[facility]/ZIP Co de Phone Number [facility] CLIA # [id number] [address] [place] [address] * (ABNORMAL) LIPID PANEL (05/03/2016 4:07 PM CDT) CHOLESTEROL 199 <200 mg/dL 05/03/2016 10:59 PM CDT [facility] TRIGLYCERIDE 88 <150 mg/dL 05/03/2016 10:59 PM CDT [facility] HDL 56 40 - 59 mg/dL 05/03/2016 10:59 PM CDT [facility] LDL CALCULATED 125(H) <100 mg/dL 05/03/2016 10:59 PM CDT [facility] NON-HDL CHOLESTEROL 143(H) <130 mg/dL 05/03/2016 10:59 PM CDT [facility] Blood 05/03/2016 4:07 PM CDT 05/03/2016 8:23 PM CDT Narrative [facility] - 05/03/2016 10:59 PM CDT TOTAL CHOLESTEROL mg/dL Desirable <200 [...] Very high >=220 Based on AHA/NCEP Guidelines Luther Sotelo MD CHEMISTRY ORDER DESI Final Result Performing Organization Address City/[facility]/ZIP Co de Phone Number [facility] CLIA # [id number] [address] [place] [address] * T4 FREE (05/03/2016 4:07 PM CDT) T4 FREE 1.19 0.93 - 1.70 ng/dL 05/03/2016 10:59 PM [facility] Blood 05/03/2016 4:07 PM CDT 05/03/2016 8:23 PM CDT us Luther Sotelo MD CHEMISTRY ORDER DESI Final Result [facility] CLIA # [id number] [address] [place] [address] * (ABNORMAL) COMPREHENSIVE METABOLIC PANEL (05/03/2016 4:07 PM CDT) [facility] SODIUM 140 136 - 145 mmol/L 05/03/2016 10:59 PM [facility] POTASSIUM 4.1 3.5 - 5.1 mmol/L 05/03/2016 10:59 PM [facility] CHLORIDE 98 98 - 107 mmol/L 05/03/2016 10:59 PM [facility] CO2 25 22 - 29 mmol/L 05/03/2016 10:59 PM [facility] CALCIUM 9.8 8.8 - 10.2 mg/dL 05/03/2016 10:59 PM [facility] BUN 12 8 - 23 mg/dL 05/03/2016 10:59 PM [facility] CREATININE 0.72 0.51 - 0.95 mg/dL 05/03/2016 10:59 PM [facility] GLUCOSE 78 74 - 106 mg/dL 05/03/2016 10:59 PM [facility] TOTAL PROTEIN 7.7 6.6 - 8.7 g/dL 05/03/2016 10:59 PM [facility] ALBUMIN 4.5 3.5 - 5.2 g/dL 05/03/2016 10:59 PM [facility] BILIRUBIN TOTAL 0.2 0.0 - 1.2 mg/dL 05/03/2016 10:59 PM [facility] ALKALINE PHOSPHATASE 115(H) 35 - 104 U/L 05/03/2016 10:59 PM CDT [facility] AST 25 10 - 35 U/L 05/03/2016 10:59 PM CDT [facility] ALT 32 10 - 35 U/L 05/03/2016 10:59 PM CDT [facility] GFR >60 >=60 mL/min/1.7 3 sq meter 05/03/2016 10:59 PM T [facility] Comment: eGFR has not been validated [...] mL/min/1.7 3 sq meter 05/03/2016 10:59 PM T [facility] ANION GAP 17 12 - 20 mmol/L 05/03/2016 10:59 PM [facility] Blood 05/03/2016 4:07 PM CDT 05/03/2016 8:23 PM CDT us Luther Sotelo MD CHEMISTRY ORDER DESI Final Result [id number] [address] [place] [address] * (ABNORMAL) CBC WITH DIFFERENTIAL (05/03/2016 4:07 PM CDT) WBC 8.9 4.0 - 10.0 K/uL 05/03/2016 10:44 PM CDT [facility] RBC 5.58(H) 3.93 - 5.22 M/uL 05/03/2016 10:44 PM [facility] HEMOGLOBIN 14.7 11.2 - 15.7 g/dL 05/03/2016 10:44 PM T [facility] HEMATOCRIT 44.5 34.1 - 44.9 % 05/03/2016 10:44 PM [facility] MCV 79.7 79.4 - 94.8 fL 05/03/2016 10:44 PM [facility] MCH 26.3 25.6 - 32.2 pg 05/03/2016 10:44 PM [facility] MCHC 33.0 32.2 - 35.5 g/dL 05/03/2016 10:44 PM [facility] RDW 16.3(H) 11.0 - 14.5 % 05/03/2016 10:44 PM [facility] RDW-STDEV 47.3 36.9 - 56.9 fL 05/03/2016 10:44 PM [facility] PLATELETS 357(H) 163 - 337 K/uL 05/03/2016 10:44 PM [facility] MPV 10.9 10.0 - 14.8 fL 05/03/2016 10:44 PM [facility] Blood 05/03/2016 4:07 PM CDT 05/03/2016 8:23 PM CDT [place] Joaquín Sotelo MD HEMATOLOGY TIM REYNOSO Final Result [facility] CLIA # [id number] [address] [place] [address] documented in this encounter Visit Diagnoses Not on filedocumented in this encounter
--- OUTSIDE RECORDS SUMMARY | 2025-05-19 15:32 | XMS_ITS | Encounter Summary ---
Author Organization [facility] Address [address] [place] [address] Care Team Providers Care Ticket Marker Name Role Phone Unavailable Primary Care Provider Unavailabl e Encounter Details Date Type Department Care Team (Late st Contact Info) Description 09/01/2015 Lab Requisition [facility] [place] [address] [place] [phone] Flo Lopez PA NO ADDRESS ON FILE Illness Social History Tobacco Use Types Packs/Day Years Used Date Smoking Tobacco: Every Day Cigarettes 1 40 Comments Unknown Sex and Gender Information Value Date Recorded Sex Assigned at Not on file 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:52 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 Gender Identity Not on file Sexual Orientation Not on file documented as of this encounter Plan of Treatment Not on file documented as of this encounter Procedures Procedure Name Priority Date/Time Associated Diagnosis Comments TSH Routine 09/01/2015 9:00 PM COMPUTER INFORMATION SYSTEMS PROFESSOR Illness HEPATIC FUNCTION PANEL Routine 09/01/2015 9:00 PM COMPUTER INFORMATION SYSTEMS PROFESSOR Illness LIPID PANEL Routine 09/01/2015 9:00 PM COMPUTER INFORMATION SYSTEMS PROFESSOR Illness BASIC METABOLIC PANEL Routine 09/01/2015 9:00 PM COMPUTER INFORMATION SYSTEMS PROFESSOR Illness documented in this encounter Results * TSH (09/01/2015 9:00 PM COMPUTER INFORMATION SYSTEMS PROFESSOR) TSH 2.20 0.27 - 4.20 uIU/mL 09/01/2015 9:46 PM COMPUTER INFORMATION SYSTEMS PROFESSOR [facility] [place] Blood Collection / Unknown 09/01/2015 9:00 PM COMPUTER INFORMATION SYSTEMS PROFESSOR 09/01/2015 9:00 PM COMPUTER INFORMATION SYSTEMS PROFESSOR Flo CROWDER CHEMISTRY ORDERABLES Final Re sult Performing Organization Address City/[facility]/ZIP Co de Phone Number [facility] [place] CLIA # [id number] [address] [address] * (ABNORMAL) LIPID PANEL (09/01/2015 9:00 PM COMPUTER INFORMATION SYSTEMS PROFESSOR) CHOLESTEROL 160 <200 mg/dL 09/01/2015 9:46 PM COMPUTER INFORMATION SYSTEMS PROFESSOR [facility] [place] TRIGLYCERIDE 161(H) <150 mg/dL 09/01/2015 9:46 PM COMPUTER INFORMATION SYSTEMS PROFESSOR [facility] [place] HDL 54 40 - 59 mg/dL 09/01/2015 9:46 PM COMPUTER INFORMATION SYSTEMS PROFESSOR [facility] LDL CALCULATED 74 <100 mg/dL 09/01/2015 9:46 PM COMPUTER INFORMATION SYSTEMS PROFESSOR [facility] NON-HDL CHOLESTEROL 106 <130 mg/dL 09/01/2015 9:46 PM COMPUTER INFORMATION SYSTEMS PROFESSOR [facility] Blood Collection / Unknown 09/01/2015 9:00 PM COMPUTER INFORMATION SYSTEMS PROFESSOR 09/01/2015 9:00 PM COMPUTER INFORMATION SYSTEMS PROFESSOR Narrative [facility] [place] - 09/01/2015 9:46 PM COMPUTER INFORMATION SYSTEMS PROFESSOR TOTAL CHOLESTEROL mg/dL Desirable <200 Borderline high [...] Very high >=220 Based on AHA/NCEP Guidelines Flo CROWDER CHEMISTRY ORDERABLES Final Re sult Performing Organization Address City/[facility]/ZIP Co de Phone Number [facility] CLIA # [id number] [address] [address] * HEPATIC FUNCTION PANEL (09/01/2015 9:00 PM COMPUTER INFORMATION SYSTEMS PROFESSOR) Pathologist [facility] TOTAL PROTEIN 7.2 6.6 - 8.7 g/dL 09/01/2015 9:46 PM COMPUTER INFORMATION SYSTEMS PROFESSOR [facility] [place] ALBUMIN 3.9 3.5 - 5.2 g/dL 09/01/2015 9:46 PM COMPUTER INFORMATION SYSTEMS PROFESSOR [facility] [place] BILIRUBIN TOTAL <0.2 0.0 - 1.2 mg/dL 09/01/2015 9:46 PM COMPUTER INFORMATION SYSTEMS PROFESSOR [facility] [place] BILIRUBIN DIRECT <0.2 0.0 - 0.3 mg/dL 09/01/2015 9:46 PM [facility] [place] ALKALINE PHOSPHATASE 87 35 - 104 U/L 09/01/2015 9:46 PM COMPUTER INFORMATION SYSTEMS PROFESSOR [facility] AST 17 10 - 35 U/L 09/01/2015 9:46 PM COMPUTER INFORMATION SYSTEMS PROFESSOR [facility] ALT 10 10 - 35 U/L 09/01/2015 9:46 PM [facility] [place] Blood Collection / Unknown 09/01/2015 9:00 PM COMPUTER INFORMATION SYSTEMS PROFESSOR 09/01/2015 9:00 PM COMPUTER INFORMATION SYSTEMS PROFESSOR Flo CROWDER CHEMISTRY ORDERABLES Final Re sult [facility] [place] CLIA # [id number] [address] [place] [address] * (ABNORMAL) BASIC METABOLIC PANEL (09/01/2015 9:00 PM COMPUTER INFORMATION SYSTEMS PROFESSOR) Pathologist [facility] SODIUM 135(L) 136 - 145 mmol/L 09/01/2015 9:46 PM COMPUTER INFORMATION SYSTEMS PROFESSOR [facility] POTASSIUM 3.6 3.5 - 5.1 mmol/L 09/01/2015 9:46 PM [facility] CHLORIDE 97(L) 98 - 107 mmol/L 09/01/2015 9:46 PM [facility] CO2 26 22 - 29 mmol/L 09/01/2015 9:46 PM COMPUTER INFORMATION SYSTEMS PROFESSOR [facility] CALCIUM 9.0 8.8 - 10.2 mg/dL 09/01/2015 9:46 PM [facility] Order Mapper [facility] BUN 8 8 - 23 mg/dL 09/01/2015 9:46 PM [facility] CREATININE 0.66 0.51 - 0.95 mg/dL 09/01/2015 9:46 PM [facility] GLUCOSE 85 74 - 106 mg/dL 09/01/2015 9:46 PM [facility] GFR >60 >=60 mL/min/1.7 3 sq meter 09/01/2015 9:46 PM [facility] Order Mapper [facility] Comment: eGFR has not been validated for [...] mL/min/1.7 3 sq meter 09/01/2015 9:46 PM [facility] Order Mapper [facility] ANION GAP 12 12 - 20 mmol/L 09/01/2015 9:46 PM [facility] Order Mapper [facility] Blood Collection / Unknown 09/01/2015 9:00 PM COMPUTER INFORMATION SYSTEMS PROFESSOR 09/01/2015 9:00 PM COMPUTER INFORMATION SYSTEMS PROFESSOR Flo CROWDER CHEMISTRY ORDERABLES Final Re sult [facility] # [id number] [address] [place] [address] documented in this encounter Visit Diagnoses Diagnosis Illness Other unknown and unspecified cause of morbidity or mortality documented in this encounter
--- NOTE | 2025-05-19 15:46 | ECG_ITS ---
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 Measurements Intervals [place] Rate: 164 P: 0 ND: 0 QRS: 62 QRSD: 76 T: 53 QT: 259 QTc: 428 Interpretive Statements ATRIAL FIBRILLATION WITH RAPID VENTRICULAR RESPONSE SEPTAL MYOCARDIAL INFARCTION , PROBABLY OLD [40+ ms Q WAVE IN V1/V2] CRITICAL TEST RESULT Compared to ECG 02/12/2025 07:08:05 Sinus rhythm no longer present Myocardial infarct finding still present Electronically Signed On 05-19-2025 18:43:39 CDT by Marilyn Moore M.D. [id number]
--- NOTE | 2025-05-19 15:54 | XRR_ITS ---
PROCEDURE INFORMATION: Exam: XR Chest Exam date and time: 05/19/2025 4:10 PM Age: 70 years old Clinical indication: Shortness of breath; Additional info: ULI Garcia TECHNIQUE: Imaging protocol: Radiologic exam of the chest. Views: 1 view. COMPARISON: CR XR chest 1V portable [id number] 02/12/2025 5:20 AM FINDINGS: Lungs: Unchanged 4 mm right upper lobe pulmonary nodule. No infiltrates. Pleural spaces: No effusion or pneumothorax. Heart/Mediastinum: Heart size is normal. Mediastinal size is normal. The aortic arch is calcified. Bones/joints: Unremarkable. XR/XR chest 1V portable [id number] IMPRESSION: No acute findings.
--- NOTE | 2025-05-19 16:00 | W.ED.ARRPALP ---
HPI - Arrhythmia/Palpitations General: Chief Complaint: Arrhythmia/Palpitations Stated Complaint: low bp(home health nurse sent) Time Seen by Provider: 05/19/25 15:30 History of Present Illness: HPI: Patient with onset of dizziness, palpitations, lightheadedness, and left lower extremity tingling. She states that this happened around 10 to 11 AM this morning. She also notes that she felt her blood pressure was lower than usual but does not know specific measurements. Attempted to take a nap to improve her symptoms but they did not improve so she presented to the emergency department for further evaluation. Patient is well-known to the emergency department for frequent COPD exacerbations. She is on 5 L and does not feel that her shortness of breath is particularly worse than usual now but did perceive palpitations and shortness of breath as her onset symptoms prior to the lightheadedness. The left lower extremity tingling lasted a few minutes now has completely resolved. No time did she have any weakness. No GI symptoms, infectious symptoms, or active chest pain. Echocardiogram in 11/20: CONCLUSIONS Normal left ventricular size and function with an estimated ejection fraction of 65 %. Grade I diastolic dysfunction Mild MR, mildly dilated LA. Normal RV and normal RV systolic function. Mildly elevated RV and pulmonary pressures, estimated PA pressure 35 to 40 mmHg. REVIEW OF SYSTEMS: 10 systems reviewed and otherwise unremarkable except for those noted in HPI. PHYSCIAL EXAM: Triage vital signs reviewed Gen: A&O NAD HEENT: NCAT, EOMI, not icteric. External ears normal. No rhinorrhea. Moist mucous membranes. Neck: Supple, full range of motion, no observable masses, No meningeal sign. Lungs: Tachypneic, no posturing, on 5 L nasal cannula (home oxygen) CV: Regular regular, no edema, diminished breath sounds bilaterally, tachypneic Abdomen: Soft, nondistended, No rebound tenderness. MSK: No joint swelling, no redness. Skin: No rashes, petechiae, lesions. Normal color per patient. Neuro: Psych: Appropriate for situation. PROCEDURES: 1. EKG: Rate: Tachycardia Rhythm: Irregular [place]: Normal variant Intervals: Irregular Ischemia: No STEMI criteria Atrial fibrillation with rapid ventricular response 2. Critical Care Procedure Note Authorized and Performed by: Kam SEAMAN Total critical care time: Approximately 40 minutes Due to a high probability of clinically significant, life threatening deterioration, the patient required my highest level of preparedness to intervene emergently and I personally spent this critical care time directly and personally managing the patient. This critical care time included obtaining a history; examining the patient; pulse oximetry; ordering and review of studies; arranging urgent treatment with development of a management plan; evaluation of patient's response to treatment; frequent reassessment; and, discussions with other providers. This critical care time was performed to assess and manage the high probability of imminent, life-threatening deterioration that could result in multi-organ failure. It was exclusive of separately billable procedures and treating other patients and teaching time. Related Data Home Medications ?Medication ?Instructions ?Recorded ?Confirmed acetaminophen 500 mg tablet 500 mg PO Q6H PRN Pain 04/04/23 05/19/25 levothyroxine 50 mcg tablet 50 mcg PO DAILY@08 04/04/23 05/19/25 albuterol sulfate 2.5 mg/3 mL 2.5 mg inhalation QID PRN 02/25/25 05/19/25 (0.083 %) solution for nebulization Shortness Of Breath cetirizine 10 mg tablet 10 mg PO DAILY 02/25/25 05/19/25 cilostazol 100 mg tablet 100 mg PO BID 02/25/25 05/19/25 clopidogrel 75 mg tablet 75 mg PO DAILY 02/25/25 05/19/25 isosorbide mononitrate 30 mg 30 mg PO DAILY 02/25/25 05/19/25 tablet,extended release 24 hr metoprolol tartrate 50 mg tablet 50 mg PO BID 02/25/25 05/19/25 pantoprazole 40 mg tablet,delayed 40 mg PO DAILY 02/25/25 05/19/25 release rosuvastatin 40 mg tablet 40 mg PO BEDTIME 02/25/25 05/19/25 alprazolam 0.25 mg tablet 0.25 mg PO Q6H PRN Anxiety 05/19/25 05/19/25 lorazepam 0.5 mg tablet (Ativan) 0.5 mg PO Q4H PRN 05/19/25 05/19/25 restlessness/anxiety montelukast 10 mg tablet 10 mg PO DAILY 05/19/25 05/19/25 Previous Rx's ?Medication ?Instructions ?Recorded cam boot to left #1 ea 04/12/23 ASO to left #1 ea 05/02/23 Rollator Walker #1 ea 05/25/23 albuterol sulfate 90 mcg/actuation 2 puff inhalation QID PRN 11/27/24 aerosol inhaler Shortness Of Breath #8.5 grams Allergies Allergy/AdvReac Type Severity Reaction Status Date / Time diphenhydramine (From Allergy Intermediate ALGY-Hives Verified 05/19/25 15:50 Benadryl) sulfabenzamide Allergy Intermediate swelling Verified 05/19/25 15:50 PFS ED PFSH: Medical History (Updated 05/19/25 @ 16:09 by Flo Humphrey MD) Peripheral arterial disease Benign essential HTN Viral pneumonia Influenza Hypoxia Acute bronchitis Acute on chronic respiratory failure with hypoxia and hypercapnia Acute exacerbation of chronic obstructive pulmonary disease Grade III diastolic dysfunction MURILLO (dyspnea on exertion) Atherosclerosis of coronary artery Hypertension Adult hypothyroidism Hyperlipemia Dyspnea on exertion Malaise and fatigue Chronic obstructive asthma with exacerbation Emphysema/COPD GERD (gastroesophageal reflux disease) Back pain Palpitations Hypothyroidism Insomnia Park's palsy Hx of hyperlipidemia Anxiety Hx of breast cancer CAD (coronary artery disease) History of hypertension PAD (peripheral artery disease) Syncope Bilateral carotid artery stenosis without cerebral infarction Surgical History H/O tubal ligation History of cholecystectomy Status post carotid endarterectomy Family History Mother Lung disease Family/Other Cancer Grandmother CAD (coronary artery disease) Stroke Father Bleeding disorder Denies family history of Diabetes Clotting disorder Dementia Chronic kidney disease (CKD) Suicide Anesthesia complication Social History Smoking and tobacco/nicotine status: current every day tobacco/nicotine user cigarettes Packs smoked per day: 1 Years cigarettes smoked: 31 [ Other cigarette details: Started at age 22] Alcohol intake: never Substance/Drug Use: never Course Vital Signs: Vital signs: Vital Signs Temperature 98.0 F 05/19/25 15:43 Pulse Rate 160 H 05/19/25 15:43 Respiratory Rate 22 H 05/19/25 15:43 Blood Pressure 98/63 05/19/25 15:43 Pulse Oximetry 96 05/19/25 15:43 Oxygen Delivery Me thod Nasal Cannula 05/19/25 15:43 Oxygen Flow Rate 5 05/19/25 15:43 MDM - Arrhythmia/Palpitations Medical Decision Making MEDICAL DECISION MAKING: Differential diagnoses considered but not limited to: Atrial fibrillation rapid ventricular response, electrolyte derangement, pulmonary embolus (patient only on antiplatelet), thyrotoxicosis, compensatory tachycardia for sepsis. Vitals demonstrate atrial fibrillation with rapid ventricular spots of uncertain. Given history, examination, and pretest risk factors, obtain broad screening labs for electrolyte derangements, infection, and underlying etiologies of patient's tachycardia in the department today. Patient on metoprolol to tartrate 50 mg twice daily at home. Trialing IV metoprolol 5 mg for proving her symptoms. Patient failed trial of metoprolol and was subsequently started on diltiazem drip in conjunction with fluid resuscitation. Patient required admission for stabilization of her atrial fibrillation with rapid ventricular sponsor medication optimization. DISPO: Admission Flo Humphrey MD Staff physician, [facility] Emergency Department [phone] Lab Data 05/19/25 16:28 05/19/25 16:28 Laboratory Results WBC 9.92 10^3/uL (3.29-11.43) 05/19/25 16:28 Corrected WBC Cancelled 05/19/25 16:13 RBC 5.26 10^6/uL (3.85-5.65) 05/19/25 16:28 Hgb 13.10 g/dL (11.27-16.99) 05/19/25 16:28 Hct 41.8 % (36-47) 05/19/25 16:28 MCV 79.5 fl (85-98) L 05/19/25 16:28 MCH 24.9 pg (27-33) L 05/19/25 16:28 MCHC 31.3 g/dL (30-55) 05/19/25 16:28 RDW 15.1 % (12.1-15.1) 05/19/25 16:28 Plt Count 319 10^3/cmm (157-399) 05/19/25 16:28 MPV 9.7 fL (7.4-10.4) 05/19/25 16:28 Gran % Cancelled 05/19/25 16:13 Neut % (Auto) 58.6 % 05/19/25 16:28 Lymph % (Auto) 29.5 % 05/19/25 16:28 [place] % (Auto) 8.8 % 05/19/25 16:28 Eos % (Auto) 2.2 % 05/19/25 16:28 Baso % (Auto) 0.7 % 05/19/25 16:28 Neut # (Auto) 5.81 10^3/uL (1.8-7.7) 05/19/25 16:28 Lymph # (Auto) 2.9 10^3/uL (0.8-4.8) 05/19/25 16:28 [place] # (Auto) 0.9 10^3/uL (0.2-0.9) 05/19/25 16:28 Eos # (Auto) 0.2 10^3/uL (0.0-0.8) 05/19/25 16:28 Baso # (Auto) 0.1 10^3/uL (0.0-0.1) 05/19/25 16:28 Absolute Gran (auto) Cancelled 05/19/25 16:13 Nucleated RBC % (auto) 0 % 05/19/25 16:28 Nucleated RBCs # 0.0 /100WBC 05/19/25 16:28 D-Dimer 0.39 ug/mLFEU (0-0.59) 05/19/25 16:28 Sodium 141 mmol/L (136-145) 05/19/25 16:28 Potassium 3.9 mmol/L (3.5-5.1) 05/19/25 16:28 Chloride 104 mmol/L (98-107) 05/19/25 16:28 Carbon Dioxide 25 mmol/L (22-29) 05/19/25 16:28 Anion Gap 15.9 (5-19) 05/19/25 16:28 BUN 12 mg/dL (8-23) 05/19/25 16:28 Creatinine 1.0 mg/dL (0.5-0.9) H 05/19/25 16:28 GFR Calculation Not Reportable 05/19/25 16:28 Glucose 116 mg/dL (65-115) H 05/19/25 16:28 Calculated Osmolality 293 mOsm/kg (285-295) 05/19/25 16:28 Calcium 9.2 mg/dL (8.5-10.5) 05/19/25 16:28 Magnesium 2.2 mg/dL (1.7-2.3) 05/19/25 16:28 Total Bilirubin 0.2 mg/dL (0.15-1.2) 05/19/25 16:28 AST 21 U/L (0-32) 05/19/25 16:28 ALT 17 U/L (0-33) 05/19/25 16:28 Alkaline Phosphatase 116 U/L (35-105) H 05/19/25 16:28 Troponin T Baseline 14 ng/L (0-10) H 05/19/25 16:28 Total Protein 6.6 g/dL (6.6-8.7) 05/19/25 16:28 Albumin 4.0 g/dL (3.5-5.2) 05/19/25 16:28 Globulin 2.6 g/dL (1.3-4.6) 05/19/25 16:28 TSH 1.69 uIU/mL (0.27-4.20) 05/19/25 16:28 Urine Color Yellow (Yellow) 05/19/25 16:59 Urine Appearance Clear (CLEAR) 05/19/25 16:59 Urine pH 7.0 (5-7) 05/19/25 16:59 Ur Specific [place] 1.006 (1.005-1.030) 05/19/25 16:59 Urine Protein Negative (Negative) 05/19/25 16:59 Urine Glucose (UA) Negative (Normal) 05/19/25 16:59 Urine Ketones Negative (Negative) 05/19/25 16:59 Urine Blood Trace (Negative) A 05/19/25 16:59 Urine Nitrate Negative (Negative) 05/19/25 16:59 Urine Bilirubin Negative (Negative) 05/19/25 16:59 Urine Urobilinogen 0.2 mg/dL (Negative) 05/19/25 16:59 Ur Leukocyte Esterase Negative (Negative) 05/19/25 16:59 Urine RBC 3-5 /hpf (0-2) 05/19/25 16:59 Urine WBC 0-5 /hpf (0-5) 05/19/25 16:59 Ur Squamous Epith Cells 0-5 /hpf (0-5) 05/19/25 16:59 Amorphous Sediment Not Reportable 05/19/25 16:59 Urine Bacteria None seen /hpf (NONE) 05/19/25 16:59 Hyaline Casts 0-4 /lpf H 05/19/25 16:59 XR interpretation done by ED provider, pending radiology final review Discharge Plan Discharge Clinical Impression: Atrial fibrillation with rapid ventricular response Condition: Stable Prescriptions: No Action (DME) cam boot to left See Rx Instructions .Route .MEDSUPPLY Qty: 1 0RF Rx Instructions: As directed (DME) ASO to left See Rx Instructions .Route .MEDSUPPLY Qty: 1 0RF Rx Instructions: As directed (DME) Rollator Walker See Rx Instructions .Route .MEDSUPPLY Qty: 1 0RF Rx Instructions: As directed Home acetaminophen 500 mg Tablet 500 mg PO Q6H PRN (Reason: Pain) levothyroxine 50 mcg tablet 50 mcg PO DAILY@08 albuterol sulfate 90 mcg/actuation HFA aerosol inhaler 2 puff INHALATION QID PRN (Reason: Shortness Of Breath) Qty: 8.5 5RF metoprolol tartrate 50 mg tablet 50 mg PO BID cilostazol 100 mg tablet 100 mg PO BID albuterol sulfate 2.5 mg /3 mL (0.083 %) solution for nebulization 2.5 mg inhalation QID PRN (Reason: Shortness Of Breath) isosorbide mononitrate 30 mg tablet extended release 24 hr 30 mg PO DAILY clopidogrel 75 mg tablet 75 mg PO DAILY pantoprazole 40 mg tablet,delayed release (DR/EC) 40 mg PO DAILY rosuvastatin 40 mg tablet 40 mg PO BEDTIME cetirizine 10 mg Tablet 10 mg PO DAILY alprazolam 0.25 mg tablet 0.25 mg PO Q6H PRN (Reason: Anxiety) lorazepam [Ativan] 0.5 mg tablet 0.5 mg PO Q4H PRN (Reason: restlessness/anxiety) montelukast 10 mg tablet 10 mg PO DAILY Referrals: Katie Dobbs PA [Primary Care Provider, Physicians Application Security Developer] Print Language: Wallisian Coding Level of Care Code ED Plasticator for Tevin Gonzalez
[2025-05-19] MEDS: metoprolol tartrate 1 mg/1 mL SDV 5 mL 5 MG IVP ×3 (16:15→16:34)
[2025-05-19 16:42] LABS: Hematocrit 41.8 % (36-47); Hemoglobin 13.10 g/dL (11.27-16.99); Mean Corpuscular HGB Conc 31.3 g/dL (30-55); Mean Corpuscular Hemoglobin 24.9 pg (27-33); Mean Corpuscular Volume 79.5 fl (85-98); Nucleated Red Blood Cells % 0 %; Platelet Count 319 10^3/cmm (157-399); Red Blood Count 5.26 10^6/uL (3.85-5.65); White Blood Count 9.92 10^3/uL (3.29-11.43)
[2025-05-19 17:01] LABS: Troponin(5th) Baseline 14 ng/L (0-10)
[2025-05-19 17:15] LABS: Alanine Aminotransferase 17 U/L (0-33); Albumin Level 4.0 g/dL (3.5-5.2); Alkaline Phosphatase 116 U/L (35-105); Anion Gap 15.9 (5-19); Aspartate Amino Transferase 21 U/L (0-32); Blood Urea Nitrogen 12 mg/dL (8-23); Calcium 9.2 mg/dL (8.5-10.5); Carbon Dioxide 25 mmol/L (22-29); Chloride 104 mmol/L (98-107); Creatinine Clr Calc Pharmacy 46.4182; Globulin 2.6 g/dL (1.3-4.6); Glucose 116 mg/dL (65-115); Magnesium 2.2 mg/dL (1.7-2.3); Osmolality Calculated 293 mOsm/kg (285-295); Potassium 3.9 mmol/L (3.5-5.1); Sodium 141 mmol/L (136-145); Thyroid Stimulating Hormone 1.69 uIU/mL (0.27-4.20); Total Protein 6.6 g/dL (6.6-8.7)
[2025-05-19 17:17] LABS: Glucose Urine UA Negative (Normal); Nitrate Urine Negative (Negative); Specific Gravity, Urine 1.006 (1.005-1.030)
[2025-05-19 17:22] LABS: Add Urine Microscopic? YES
[2025-05-19] MEDS: dilTIAZem 100 MG in sodium chloride 0.9% (add-van) 100 ML IV (17:47)
[2025-05-19] MEDS: methylPREDNISolone sod succ 125 mg/2 mL INJ IVP (17:49)
--- NOTE | 2025-05-19 17:54 | PM.HP ---
Providers/Chief Complaint Admitting Physician: Judy Pineda MD Primary Care Provider: Katie Dobbs Chief Complaint: low bp(home health nurse sent) History of Present Illness as per the patient and the previous notes: Cinthia Palacios is a 70 year old female came with onset of dizziness, palpitations, lightheadedness, and left lower extremity tingling. She states that this happened around 10 to 11 AM this morning. She also notes that she felt her blood pressure was lower than usual but does not know specific measurements. Attempted to take a nap to improve her symptoms but they did not improve so she presented to the emergency department for further evaluation. Patient is well-known to the emergency department for frequent COPD exacerbations. She is on 5 L at home and reported having more sob associated with phlegm whitish in color. no history of recent travel, vaccinations or any sick contact; there was light headedness with palpitations and chest pressure, but no diaphoresis, syncope or any presyncope. no diarrhea, nausea or vomiting or any rash. no orthopnea or pnd. no LLE swellings. she is compliant to her medications and reported she is having easy bruising on and off. takes clopidogrel for her at fib and on metoprolol. most of the times her at fib is uncontrolled and following with the cardio here Review of Systems General: Reports: 10 or more systems reviewed and unremarkable except in HPI and below Medications/Allergies Home Medications ?Medication ?Instructions ?Recorded ?Confirmed ?Last Taken ?Type acetaminophen 500 mg tablet 500 mg PO Q6H PRN Pain 04/04/23 05/19/25 05/19/25 History levothyroxine 50 mcg tablet 50 mcg PO DAILY@08 04/04/23 05/19/25 05/19/25 History cam boot to left #1 ea 04/12/23 05/19/25 Unknown Rx ASO to left #1 ea 05/02/23 05/19/25 Unknown Rx Rollator Walker #1 ea 05/25/23 05/19/25 Unknown Rx albuterol sulfate 90 mcg/actuation 2 puff inhalation QID PRN 11/27/24 05/19/25 02/24/25 Rx aerosol inhaler Shortness Of Breath #8.5 grams albuterol sulfate 2.5 mg/3 mL 2.5 mg inhalation QID PRN 02/25/25 05/19/25 Unknown History (0.083 %) solution for nebulization Shortness Of Breath cetirizine 10 mg tablet 10 mg PO DAILY 02/25/25 05/19/25 05/19/25 History cilostazol 100 mg tablet 100 mg PO BID 02/25/25 05/19/25 05/19/25 History clopidogrel 75 mg tablet 75 mg PO DAILY 02/25/25 05/19/25 05/19/25 History isosorbide mononitrate 30 mg 30 mg PO DAILY 02/25/25 05/19/25 05/19/25 History tablet,extended release 24 hr metoprolol tartrate 50 mg tablet 50 mg PO BID 02/25/25 05/19/25 05/19/25 History pantoprazole 40 mg tablet,delayed 40 mg PO DAILY 02/25/25 05/19/25 05/19/25 History release rosuvastatin 40 mg tablet 40 mg PO BEDTIME 02/25/25 05/19/25 05/18/25 History alprazolam 0.25 mg tablet 0.25 mg PO Q6H PRN Anxiety 05/19/25 05/19/25 Unknown History lorazepam 0.5 mg tablet (Ativan) 0.5 mg PO Q4H PRN 05/19/25 05/19/25 Unknown History restlessness/anxiety montelukast 10 mg tablet 10 mg PO DAILY 05/19/25 05/19/25 Unknown History Allergies Allergy/AdvReac Type Severity Reaction Status Date / Time diphenhydramine (From Allergy Intermediate ALGY-Hives Verified 05/19/25 15:50 Benadryl) sulfabenzamide Allergy Intermediate swelling Verified 05/19/25 15:50 PFSH Acute PFSH: Medical History (Updated 05/19/25 @ 18:56 by Judy Pineda MD) Acute exacerbation of chronic obstructive pulmonary disease Peripheral arterial disease Benign essential HTN Viral pneumonia Influenza Hypoxia Acute bronchitis Acute on chronic respiratory failure with hypoxia and hypercapnia Grade III diastolic dysfunction MURILLO (dyspnea on exertion) Atherosclerosis of coronary artery Hypertension Adult hypothyroidism Hyperlipemia Dyspnea on exertion Malaise and fatigue Chronic obstructive asthma with exacerbation Emphysema/COPD GERD (gastroesophageal reflux disease) Back pain Palpitations Hypothyroidism Insomnia Park's palsy Hx of hyperlipidemia Anxiety Hx of breast cancer CAD (coronary artery disease) History of hypertension PAD (peripheral artery disease) Syncope Bilateral carotid artery stenosis without cerebral infarction Surgical History H/O tubal ligation History of cholecystectomy Status post carotid endarterectomy Family History Mother Lung disease Family/Other Cancer Grandmother CAD (coronary artery disease) Stroke Father Bleeding disorder Denies family history of Diabetes Clotting disorder Dementia Chronic kidney disease (CKD) Suicide Anesthesia complication Social History Smoking and tobacco/nicotine status: current every day tobacco/nicotine user cigarettes Packs smoked per day: 1 Years cigarettes smoked: 31 [ Other cigarette details: Started at age 22] Alcohol intake: never Substance/Drug Use: never Vitals/I&O/Wt Last Vital Signs Temp 98.0 F 05/19/25 15:43 Pulse 160 H 05/19/25 15:43 Resp 22 H 05/19/25 15:43 BP 98/63 05/19/25 15:43 Pulse Ox 96 05/19/25 15:43 O2 Del Method Nasal Cannula 05/19/25 15:43 O2 Flow Rate 5 05/19/25 15:43 Weight last 48 hrs Weight 70.76 kg Physical Exam Narrative: Gen: alert and oriented to time place and person, lying with mild distress on 5L NC HEENT: unremarkable exam, most mucous membranes, atraumatic, normocephalic Neck: Supple, full range of motion, no observable masses or LN Lungs: Tachypneic, no posturing, on 5 L nasal cannula (home oxygen) with bilateral wheezes on ascultation CV: Regular regular, no edema, diminished breath sounds bilaterally, tachypneic, no jVD Abdomen: Soft, nondistended, No rebound tenderness. MSK: No joint swelling, no redness. Skin: No rashes, petechiae, lesions. Normal color per patient. Neuro: Psych: Appropriate for situation. Data 05/19/25 16:28 05/19/25 16:28 A&P Assessment and plan 1. Atrial fibrillation with rapid ventricular response: 2. Coronary artery disease: 3. Acute exacerbation of chronic obstructive airways disease: 4. Peripheral arterial disease: 5. Benign essential HTN: 6. Emphysema/COPD: 7. Atherosclerotic heart disease of [place] coronary artery with other forms of angina pectoris: 8. Hyperlipemia: 9. Bilateral carotid artery stenosis without cerebral infarction: 10. Acute exacerbation of chronic obstructive pulmonary disease: 11. GERD (gastroesophageal reflux disease): 12. Hypothyroidism: Plan: AT fib: -continue on cardiazem and titrate based on HR and BP -BP is stable at the moment with better HR control -currently HR in the range of 100s-130s, cardiazem at 7.5 -Echo ( last echo was done this yr 10/2024: EF: 67% ) -trop trend with EKG monitoring -Telemetry -consider cardio consult in case HR is not getting better or pt having hypotension monitor electrolytes and correct accordingly ancelmo Mg and K acute COPD exacerbation: having increased sob and phlegm ceftriaxone and azithromycin blood cultures CXR did not show any new infiltrates possibility of atypical pneumonia? ipratropium nebs since pt is having at fib and albuterol can increase HR methylpred 40mg daily montelukast daily CAD: continue clopidogrel and hold nitrates and metoprolol at the moment echo trop and telemetry statins Hypothyroidism: continue home dose levothyroxine TSH normal GERD: famotidine ondansterone for nausea/vomiting HLD: continue statins HTN: hold any anti HTN at the moment VTE: heparin diet: cardiac diet PDMP PDMP Reviewed: Not Reviewed Attestations Medical Necessity Statement*: Cinthia Palacios's hospital stay will require greater than 2 midnights for management for atfib with RVR, and other comorbid illnesses. Time Spent in Patient Care: 16 - 35 minutes (>than 50% of time spent in counselling and/or direct pt care on unit). Critical Care Time: The high probability of a clinically significant, sudden or life threatening deterioration, as referenced in this documentation, required my full and direct attention, intervention and personal management. The critical care time shown is in addition to time spent performing any reported separately billable procedures and includes the following: [x] Data and vital sign review and interpretation [x] Patient assessment, examination and intervention [x] Medication orders and management [x] Patient/Family updates as able [x] Care Coordination and Documentation. Other Attestations: Patient condition has been discussed at length with the patient/family, I have independently reviewed the chart labs imaging and diagnostics and EKG. the goals of care and code status with the patient/family/NOK/legal motor vehicle representative, and documented accordingly. The patient/family has been informed about the current condition and further plan of care. Agreed with the plan of care and understood without any language barrier. This documentation was created by [employer] facilities flight check pilot software. Every effort was made to ensure accuracy of facilities flight check pilot. Any obvious errors or omissions should be clarified with the author of the document. Coding Level of Care Code Critical Care >/= 30 minutes Diagnoses Atrial fibrillation with rapid ventricular response I48.91 Coronary artery disease I25.10 Acute exacerbation of chronic obstructive airways disease J44.1 Peripheral arterial disease I73.9 Benign essential HTN I10 Emphysema/COPD J43.9 Atherosclerotic heart disease of [place] coronary artery with other forms of angina pectoris I25.118 Hyperlipemia E78.5 Bilateral carotid artery stenosis without cerebral infarction I65.23 Acute exacerbation of chronic obstructive pulmonary disease J44.1 GERD (gastroesophageal reflux disease) K21.9 Hypothyroidism E03.9
--- OUTSIDE RECORDS SUMMARY | 2025-05-19 18:04 | XMS_ITS | Encounter Summary ---
Author Organization [facility] Address [address] [place] [address] Care Team Providers Care Pipeline Systems Operator Name Role Phone Unavailable Primary Care Provider Unavailabl e Encounter Details Date Type Department Care Team (Late st Contact Info) Description 06/07/2016 Lab Requisition [facility] General Laboratory Services [place] [address] [place] [phone] Bertram Ryder DO NO ADDRESS ON FILE Social History Tobacco Use Types Packs/Day Years Used Date Smoking Tobacco: Every Day Cigarettes 1 40 Comments Unknown Sex and Gender Information Value Date Recorded Sex Assigned at Not on file 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:52 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 Gender Identity Not on file Sexual [...] - 30 mm/Hr 06/07/2016 11:23 PM CDT [facility] Blood Collection / Unknown 06/07/2016 9:32 PM CDT 06/07/2016 9:37 PM CDT us Bertram Ryder DO HEMATOLOGY ORDERABLES Final Result [facility] CLIA # [id number] [address] [place] [id number] * (ABNORMAL) CBC WITH DIFFERENTIAL (06/07/2016 9:32 PM CDT) WBC 7.6 4.0 - 10.0 K/uL 06/07/2016 10:32 PM [facility] RBC 5.96(H) 3.93 - 5.22 M/uL 06/07/2016 10:32 PM [facility] HEMOGLOBIN 15.8(H) 11.2 - 15.7 g/dL 06/07/2016 10:32 PM [facility] HEMATOCRIT 47.2(H) 34.1 - 44.9 % 06/07/2016 10:32 PM [facility] MCV 79.2(L) 79.4 - 94.8 fL 06/07/2016 10:32 PM [facility] MCH 26.5 25.6 - 32.2 pg 06/07/2016 10:32 PM [facility] MCHC 33.5 32.2 - 35.5 g/dL 06/07/2016 10:32 PM [facility] RDW 16.0(H) 11.0 - 14.5 % 06/07/2016 10:32 PM [facility] RDW-STDEV 46.0 36.9 - 56.9 fL 06/07/2016 10:32 PM [facility] PLATELETS 363(H) 163 - 337 K/uL 06/07/2016 10:32 PM [facility] MPV 10.7 10.0 - 14.8 fL 06/07/2016 10:32 PM [facility] NEUTROPHILS 64 34 - 71 % 06/07/2016 10:32 PM [facility] LYMPHOCYTES 30 19 - 52 % 06/07/2016 10:32 PM [facility] MONOCYTES 6 5 - 13 % 06/07/2016 10:32 PM [facility] EOSINOPHILS 0(L) 1 - 6 % 06/07/2016 10:32 PM [facility] BASOPHILS 0 0 - 1 % 06/07/2016 10:32 PM [facility] NEUTROPHIL ABSOLUTE 4.86 1.56 - 6.13 K/uL 06/07/2016 10:32 PM [facility] LYMPHOCYTE ABSOLUTE 2.25 1.20 - 3.40 K/uL 06/07/2016 10:32 PM [facility] MONOCYTE ABSOLUTE 0.46(H) 0.24 - 0.36 K/uL 06/07/2016 10:32 PM [facility] EOSINOPHIL ABSOLUTE 0.01(L) 0.04 - 0.36 K/uL 06/07/2016 10:32 PM [facility] BASOPHILS ABSOLUTE 0.02 0.01 - 0.08 K/uL 06/07/2016 10:32 PM [facility] IMMATURE GRANULOCYTES 0 % 06/07/2016 10:32 PM [facility] IMMATURE GRANULOCYTES ABSOLUTE 0.02 K/uL 06/07/2016 10:32 PM [facility] Blood Collection / Unknown 06/07/2016 9:32 PM CDT 06/07/2016 9:37 PM CDT us Bertram Ryder DO HEMATOLOGY ORDERABLES Final Result [facility] CLIA # [id number] [address] [place] [id number] documented in this encounter Visit Diagnoses Not on filedocumented in this encounter
--- OUTSIDE RECORDS SUMMARY | 2025-05-19 18:04 | XMS_ITS | Encounter Summary ---
Author Organization [facility] Address [address] [place] [address] Care Team Providers Care Land Lease Information Clerk Name Role Phone Unavailable Primary Care Provider Unavailabl e Encounter Details Date Type Department Care Team (Late st Contact Info) Description 09/01/2015 Lab Requisition [facility] Laboratory Services [place] [address] [place] [phone] Flo Lopez PA NO ADDRESS ON FILE Illness Social History Tobacco Use Types Packs/Day Years Used Date Smoking Tobacco: Every Day Cigarettes 1 40 Comments Unknown Sex and Gender Information Value Date Recorded Sex Assigned at Not on file 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:52 AM MANAGER UTILITIES Gender Identity Not on file Sexual Orientation Not on file documented as of this encounter Plan of Treatment Not on file documented as of this encounter Procedures Procedure Name Priority Date/Time Associated Diagnosis Comments TSH Routine 09/01/2015 9:00 PM MANAGER UTILITIES Illness HEPATIC FUNCTION PANEL Routine 09/01/2015 9:00 PM MANAGER UTILITIES Illness LIPID PANEL Routine 09/01/2015 9:00 PM MANAGER UTILITIES Illness BASIC METABOLIC PANEL Routine 09/01/2015 9:00 PM MANAGER UTILITIES Illness documented in this encounter Results * TSH (09/01/2015 9:00 PM MANAGER UTILITIES) TSH 2.20 0.27 - 4.20 uIU/mL 09/01/2015 9:46 PM MANAGER UTILITIES [facility] [place] Blood Collection / Unknown 09/01/2015 9:00 PM MANAGER UTILITIES 09/01/2015 9:00 PM MANAGER UTILITIES Flo CROWDER CHEMISTRY ORDERABLES Final Re sult Performing Organization Address City/[facility]/ZIP Co de Phone Number [facility] CLIA # [id number] [address] [address] * (ABNORMAL) LIPID PANEL (09/01/2015 9:00 PM MANAGER UTILITIES) CHOLESTEROL 160 <200 mg/dL 09/01/2015 9:46 PM MANAGER UTILITIES [facility] TRIGLYCERIDE 161(H) <150 mg/dL 09/01/2015 9:46 PM MANAGER UTILITIES [facility] HDL 54 40 - 59 mg/dL 09/01/2015 9:46 PM MANAGER UTILITIES [facility] LDL CALCULATED 74 <100 mg/dL 09/01/2015 9:46 PM MANAGER UTILITIES [facility] [employer] [facility] NON-HDL CHOLESTEROL 106 <130 mg/dL 09/01/2015 9:46 PM MANAGER UTILITIES [facility] [employer] [facility] Blood Collection / Unknown 09/01/2015 9:00 PM MANAGER UTILITIES 09/01/2015 9:00 PM MANAGER UTILITIES Narrative [facility] [place] - 09/01/2015 9:46 PM MANAGER UTILITIES TOTAL CHOLESTEROL mg/dL Desirable <200 Borderline high [...] ORDERABLES Final Re sult Performing Organization Address City/[facility]/ZIP Co de Phone Number [facility] [employer] [facility] CLIA # [id number] [address] [address] * HEPATIC FUNCTION PANEL (09/01/2015 9:00 PM MANAGER UTILITIES) Pathologist [facility] TOTAL PROTEIN 7.2 6.6 - 8.7 g/dL 09/01/2015 9:46 PM MANAGER UTILITIES [facility] ALBUMIN 3.9 3.5 - 5.2 g/dL 09/01/2015 9:46 PM MANAGER UTILITIES [facility] BILIRUBIN TOTAL <0.2 0.0 - 1.2 mg/dL 09/01/2015 9:46 PM MANAGER UTILITIES [facility] BILIRUBIN DIRECT <0.2 0.0 - 0.3 mg/dL 09/01/2015 9:46 PM [facility] ALKALINE PHOSPHATASE 87 35 - 104 U/L 09/01/2015 9:46 PM MANAGER UTILITIES [facility] AST 17 10 - 35 U/L 09/01/2015 9:46 PM MANAGER UTILITIES [facility] ALT 10 10 - 35 U/L 09/01/2015 9:46 PM [facility] Blood Collection / Unknown 09/01/2015 9:00 PM MANAGER UTILITIES 09/01/2015 9:00 PM MANAGER UTILITIES Flo CROWDER CHEMISTRY ORDERABLES Final Re sult [facility] CLIA # [id number] [address] [place] [address] * (ABNORMAL) BASIC METABOLIC PANEL (09/01/2015 9:00 PM MANAGER UTILITIES) Pathologist [facility] SODIUM 135(L) 136 - 145 mmol/L 09/01/2015 9:46 PM MANAGER UTILITIES [facility] POTASSIUM 3.6 3.5 - 5.1 mmol/L 09/01/2015 9:46 PM [facility] CHLORIDE 97(L) 98 - 107 mmol/L 09/01/2015 9:46 PM [facility] CO2 26 22 - 29 mmol/L 09/01/2015 9:46 PM MANAGER UTILITIES [facility] CALCIUM 9.0 8.8 - 10.2 mg/dL 09/01/2015 9:46 PM [facility] [employer] [facility] BUN 8 8 - 23 mg/dL 09/01/2015 9:46 PM [facility] CREATININE 0.66 0.51 - 0.95 mg/dL 09/01/2015 9:46 PM [facility] GLUCOSE 85 74 - 106 mg/dL 09/01/2015 9:46 PM [facility] GFR >60 >=60 mL/min/1.7 3 sq meter 09/01/2015 9:46 PM [facility] [employer] [facility] Comment: eGFR has not been validated [...] mL/min/1.7 3 sq meter 09/01/2015 9:46 PM [facility] [employer] [facility] ANION GAP 12 12 - 20 mmol/L 09/01/2015 9:46 PM [facility] [employer] [facility] Blood Collection / Unknown 09/01/2015 9:00 PM MANAGER UTILITIES 09/01/2015 9:00 PM MANAGER UTILITIES Flo CROWDER CHEMISTRY ORDERABLES Final Re sult [facility] [employer] [facility] [id number] [address] [place] [id number] documented in this encounter Visit Diagnoses Diagnosis Illness Other unknown and unspecified cause of morbidity or mortality documented in this encounter
--- OUTSIDE RECORDS SUMMARY | 2025-05-19 18:04 | XMS_ITS | Encounter Summary ---
Author Organization [facility] Address [address] [place] [address] Care Team Providers Care Cigar Making Supervisor Name Role Phone Unavailable Primary Care Provider Unavailabl e Encounter Details Date Type Department Care Team (Late st Contact Info) Description 08/16/2016 Lab Requisition [facility] General Laboratory Services [place] [address] [place] [phone] Colin Gómez, DO NO ADDRESS ON FILE Social History Tobacco Use Types Packs/Day Years Used Date Smoking Tobacco: Every Day Cigarettes 1 40 Comments Unknown Sex and Gender Information Value Date Recorded Sex Assigned at Not on file 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:52 AM SENIOR CONTROLLER Gender Identity Not on file Sexual Orientation Not on file documented as of this encounter Plan of Treatment Not on file documented as of this encounter Procedures Procedure Name Priority Date/Time Associated Diagnosis Comments LIPID PANEL Routine 08/16/2016 8:11 PM SENIOR CONTROLLER documented in this encounter Results * (ABNORMAL) LIPID PANEL (08/16/2016 8:11 PM SENIOR CONTROLLER) CHOLESTEROL 221(H) <200 mg/dL 08/16/2016 11:48 PM [facility] TRIGLYCERIDE 81 <150 mg/dL 08/16/2016 11:48 PM [facility] HDL 57 40 - 59 mg/dL 08/16/2016 11:48 PM [facility] LDL CALCULATED 148(H) <100 mg/dL 08/16/2016 11:48 PM [facility] NON-HDL CHOLESTEROL 164(H) <130 mg/dL 08/16/2016 11:48 PM [facility] Blood Collection / Unknown 08/16/2016 8:11 PM SENIOR CONTROLLER 08/16/2016 9:08 PM SENIOR CONTROLLER Narrative [facility] - 08/16/2016 11:48 PM SENIOR CONTROLLER TOTAL CHOLESTEROL mg/dL Desirable <200 Borderline high [...] Gómez DO CHEMISTRY ORDERABLES Final Resu lt [facility] CLIA # [id number] [address] [place] [id number] documented in this encounter Visit Diagnoses Not on filedocumented in this encounter
--- OUTSIDE RECORDS SUMMARY | 2025-05-19 18:04 | XMS_ITS | Clinical Summary ---
Author Organization [facility] Address [address] [place] [address] Care Team Providers Care Rubber Compounder Supervisor Name Role Phone Unavailable Primary Care [...] on file 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:[address] COUNSELLOR Gender Identity Not on file Sexual Orientation [...] Health Maintenance Insurance [address] [place] [address] MEDICAID [facility] [id number] HMO
--- OUTSIDE RECORDS SUMMARY | 2025-05-19 18:04 | XMS_ITS | Encounter Summary ---
Author Organization [facility] Address [address] [place] [address] Care Team Providers Care Nuclear Medicine Physician Name Role Phone Unavailable Primary Care Provider Unavailabl e Encounter Details Date Type Department Care Team (Late st Contact Info) Description 09/06/2016 Lab Requisition [facility] General Laboratory Services [place] [address] [address] Colin Gómez DO NO ADDRESS ON FILE Social History Tobacco Use Types Packs/Day Years Used Date Smoking Tobacco: Every Day Cigarettes 1 40 Comments Unknown Sex and Gender Information Value Date Recorded Sex Assigned at Not on file 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:52 AM STRUCTURAL ENGINEERING TECHNICIAN Gender Identity Not on file Sexual Orientation Not on file documented as of this encounter Plan of Treatment Not on file documented as of this encounter Procedures Procedure Name Priority Date/Time Associated Diagnosis Comments TSH Routine 09/06/2016 8:53 PM STRUCTURAL ENGINEERING TECHNICIAN documented in this encounter Results * TSH (09/06/2016 8:53 PM STRUCTURAL ENGINEERING TECHNICIAN) TSH 1.76 0.27 - 4.20 uIU/mL 09/06/2016 10:45 PM STRUCTURAL ENGINEERING TECHNICIAN [facility] Blood 09/06/2016 8:53 PM STRUCTURAL ENGINEERING TECHNICIAN 09/06/2016 9:41 PM STRUCTURAL ENGINEERING TECHNICIAN Colin Gómez DO CHEMISTRY ORDERABLES Final Resu lt [facility] CLIA # [id number] [address] [place] [address] [address] [place] [address] documented in this encounter Visit Diagnoses Not on filedocumented in this encounter
--- OUTSIDE RECORDS SUMMARY | 2025-05-19 18:04 | XMS_ITS | Encounter Summary ---
Author Organization [facility] Address [address] [place] [address] Care Team Providers Care Manuscript Reader Name Role Phone Unavailable Primary Care Provider Unavailabl e Encounter Details Date Type Department Care Team (Late st Contact Info) Description 01/17/[address] [facility] General Laboratory Services [employer] [address] [place] [phone] Colin Gómez DO NO ADDRESS ON FILE Social History Tobacco Use Types Packs/Day Years Used Date Smoking Tobacco: Every Day Cigarettes 1 40 Comments Unknown Sex and Gender Information Value Date Recorded Sex Assigned at Not on file 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:52 AM RN BARIATRIC Gender Identity Not on file Sexual Orientation [...] - 4.20 uIU/mL 01/18/2017 12:37 AM CDT [facility] Blood 01/17/2017 7:44 PM CDT 01/17/2017 11:47 PM CDT us Colin Gómez DO CHEMISTRY ORDERABLES Final Resu lt [facility] CLIA # [id number] [address] [id number] * (ABNORMAL) LIPID PANEL (01/17/2017 7:44 PM CDT) CHOLESTEROL 189 <200 mg/dL 01/18/2017 12:37 AM CDT [facility] TRIGLYCERIDE 170(H) <150 mg/dL 01/18/2017 12:37 AM CDT [facility] HDL 67(H) 40 - 59 mg/dL 01/18/2017 12:37 AM CDT [facility] LDL CALCULATED 88 <100 mg/dL 01/18/2017 12:37 AM T [facility] NON-HDL CHOLESTEROL 122 <130 mg/dL 01/18/2017 12:37 AM T [facility] Blood 01/17/2017 7:44 PM CDT 01/17/2017 11:47 PM CDT Narrative [facility] - 01/18/2017 12:37 AM CDT TOTAL CHOLESTEROL [...] Gómez DO CHEMISTRY ORDERABLES Final Resu lt [facility] CLIA # [id number] [address] [place] [address] documented in this encounter Visit Diagnoses Not on filedocumented in this encounter
--- OUTSIDE RECORDS SUMMARY | 2025-05-19 18:04 | XMS_ITS | Encounter Summary ---
Author Organization [facility] Address [address] [place] [address] Care Team Providers Care Managing Member Name Role Phone Unavailable Primary Care Provider Unavailabl e Encounter Details Date Type Department Care Team (Late st Contact Info) Description 07/07/2015 Lab Requisition [facility] Laboratory Services [place] [address] [place] [phone] Lorenzo Gregory, LAKESHA [address] [place] [address] Social History Tobacco Use Types Packs/Day Years Used Date Smoking Tobacco: Every Day Cigarettes 1 40 Comments Unknown Sex and Gender Information Value Date Recorded Sex Assigned at Not on file 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:52 AM PIECE PRESSER Gender Identity Not on file Sexual Orientation [...] - 4.20 uIU/mL 07/07/2015 11:25 PM CDT [facility] Blood 07/07/2015 10:3 0 PM CDT 07/07/2015 10:30 PM CDT us Lorenzo CROWDER CHEMISTRY ORDERABLES Final R esult Performing Organization Address City/State/[facility] Co de Phone Number [facility] CLIA # [id number] [address] [place] [address] * (ABNORMAL) LIPID PANEL (07/07/2015 10:30 PM CDT) CHOLESTEROL 259(H) <200 mg/dL 07/07/2015 11:25 PM CDT [facility] TRIGLYCERIDE 85 <150 mg/dL 07/07/2015 11:25 PM CDT [facility] HDL 78(H) 40 - 59 mg/dL 07/07/2015 11:25 PM CDT [facility] LDL CALCULATED 164(H) <100 mg/dL 07/07/2015 11:25 PM CDT [facility] NON-HDL CHOLESTEROL 181(H) <130 mg/dL 07/07/2015 11:25 PM CDT [facility] Blood 07/07/2015 10:3 0 PM CDT 07/07/2015 10:30 PM CDT Narrative [facility] - 07/07/2015 11:25 PM CDT TOTAL CHOLESTEROL [...] ORDERABLES Final R esult Performing Organization Address City/[facility]/ZIP Co de Phone Number [facility] - [facility] CLIA # [id number] [address] [address] * (ABNORMAL) COMPREHENSIVE METABOLIC PANEL (07/07/2015 10:30 PM CDT) SODIUM 138 136 - 145 mmol/L 07/07/2015 11:25 PM CDT [facility] POTASSIUM 4.0 3.5 - 5.1 mmol/L 07/07/2015 11:25 PM CDT [facility] LABORATORY [facility] CHLORIDE 97(L) 98 - 107 mmol/L 07/07/2015 11:25 PM CDT [facility] CO2 27 22 - 29 mmol/L 07/07/2015 11:25 PM CDT [facility] CALCIUM 9.7 8.8 - 10.2 mg/dL 07/07/2015 11:25 PM CDT [facility]OR[facility] BUN 5(L) 8 - 23 mg/dL 07/07/2015 11:25 PM CDT [facility] LABOR[facility] CREATININE 0.60 0.51 - 0.95 mg/dL 07/07/2015 11:25 PM CDT [facility] GLUCOSE 75 74 - 106 mg/dL 07/07/2015 11:25 PM CDT [facility] TOTAL PROTEIN 8.7 6.6 - 8.7 g/dL 07/07/2015 11:25 PM CDT [facility] LABOR[facility] ALBUMIN 4.7 3.5 - 5.2 g/dL 07/07/2015 11:25 PM CDT [facility] BILIRUBIN TOTAL 0.3 0.0 - 1.2 mg/dL 07/07/2015 11:25 PM CDT [facility] ALKALINE PHOSPHATASE 119(H) 35 - 104 U/L 07/07/2015 11:25 PM CDT [facility] AST 34 10 - 35 U/L 07/07/2015 11:25 PM CDT [facility] ALT 34 10 - 35 U/L 07/07/2015 11:25 PM CDT [facility] GFR >60 >=60 mL/min/1.7 3 sq meter 07/07/2015 11:25 PM CDT [facility] Comment: eGFR has not been validated [...] 3 sq meter 07/07/2015 11:25 PM CDT [facility] ANION GAP 14 12 - 20 mmol/L 07/07/2015 11:25 PM CDT [facility] Blood 07/07/2015 10:3 0 PM CDT 07/07/2015 10:30 PM CDT Lorenzo CROWDER CHEMISTRY ORDERABLES Final R esult [facility] CLIA # [id number] [address] [place] [address] * (ABNORMAL) CBC WITH DIFFERENTIAL (07/07/2015 10:30 PM CDT) WBC 7.8 4.0 - 10.0 K/uL 07/07/2015 10:57 PM CDT [facility] RBC 6.01(H) 3.93 - 5.22 M/uL 07/07/2015 10:57 PM CDT [facility] HEMOGLOBIN 15.7 11.2 - 15.7 g/dL 07/07/2015 10:57 PM CDT [facility] HEMATOCRIT 47.0(H) 34.1 - 44.9 % 07/07/2015 10:57 PM CDT [facility] MCV 78.2(L) 79.4 - 94.8 fL 07/07/2015 10:57 PM CDT [facility] - [place] MCH 26.1 25.6 - 32.2 pg 07/07/2015 10:57 PM [facility] [employer] LABORATORY SERVICES - [place] MCHC 33.4 32.2 - 35.5 g/dL 07/07/2015 10:57 PM [facility] [employer] [facility] [place] RDW 16.6(H) 11.0 - 14.5 % 07/07/2015 10:57 PM [facility] [employer] [facility] [place] RDW-STDEV 46.4 36.9 - 56.9 fL 07/07/2015 10:57 PM [facility] [employer] [facility] [place] PLATELETS 389(H) 163 - 337 K/uL 07/07/2015 10:57 PM [facility] [employer] [facility] [place] MPV 10.3 10.0 - 14.8 fL 07/07/2015 10:57 PM [facility] [employer] [facility] [place] NEUTROPHILS 52 34 - 71 % 07/07/2015 10:57 PM [facility] [employer] [facility] [place] LYMPHOCYTES 42 19 - 52 % 07/07/2015 10:57 PM [facility] [employer] [facility] [place] MONOCYTES 6 5 - 13 % 07/07/2015 10:57 PM [facility] [employer] [facility] [place] EOSINOPHILS 0(L) 1 - 6 % 07/07/2015 10:57 PM [facility] [employer] [facility] [place] BASOPHILS 0 0 - 1 % 07/07/2015 10:57 PM [facility] [employer] [facility] [place] NEUTROPHIL ABSOLUTE 4.01 1.56 - 6.13 K/uL 07/07/2015 10:57 PM [facility] [employer] [facility] [place] LYMPHOCYTE ABSOLUTE 3.28 1.20 - 3.40 K/uL 07/07/2015 10:57 PM [facility] [employer] [facility] [place] MONOCYTE ABSOLUTE 0.43(H) 0.24 - 0.36 K/uL 07/07/2015 10:57 PM [facility] [employer] [facility] [place] EOSINOPHIL ABSOLUTE 0.01(L) 0.04 - 0.36 K/uL 07/07/2015 10:57 PM [facility] [employer] [facility] [place] BASOPHILS ABSOLUTE 0.01 0.01 - 0.08 K/uL 07/07/2015 10:57 PM [facility] [employer] [facility] [place] IMMATURE GRANULOCYTES 0 % 07/07/2015 10:57 PM CDT [facility] LABORATORY [facility] IMMATURE GRANULOCYTES ABSOLUTE 0.01 K/uL 07/07/2015 10:57 PM CDT [facility] Blood 07/07/2015 10:3 0 PM CDT 07/07/2015 10:30 PM CDT us Lorenzo CROWDER HEMATOLOGY ORDERABLES Final Result [facility] [place] CLIA # [id number] [address] [place] [address] documented in this encounter Visit Diagnoses Not on filedocumented in this encounter
--- OUTSIDE RECORDS SUMMARY | 2025-05-19 18:04 | XMS_ITS | Encounter Summary ---
Author Organization [facility] Address [address] [place] [address] Care Team Providers Care Pool Technician Name Role Phone Unavailable Primary Care Provider Unavailabl e Encounter Details Date Type Department Care Team (Late st Contact Info) Description 05/03/2016 Lab Requisition [facility] General Laboratory Services [place] [address] [place] [phone] Luther Pandey MD NO ADDRESS ON FILE Social History Tobacco Use Types Packs/Day Years Used Date Smoking Tobacco: Every Day Cigarettes 1 40 Comments Unknown Sex and Gender Information Value Date Recorded Sex Assigned at Not on file 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:52 AM SALES SUPPORT ENGINEER Gender Identity Not on file Sexual Orientation [...] - 70 % 05/03/2016 11:54 PM CDT [facility] LYMPHOCYTES RELATIVE 40 20 - 45 % 05/03/2016 11:54 PM T [facility] MONOCYTES RELATIVE 8 2 - 8 % 05/03/2016 11:54 PM [facility] EOSINOPHILS RELATIVE 1 0 - 5 % 05/03/2016 11:54 PM T [facility] NEUTROPHILS ABSOLUTE COUNT 4.54 1.78 - 5.38 K/uL 05/03/2016 11:54 PM CDT [facility] LYMPHOCYTES ABSOLUTE 3.56 1.20 - 4.00 K/uL 05/03/2016 11:54 PM T [facility] MONOCYTES ABSOLUTE 0.71 0.30 - 0.82 K/uL 05/03/2016 11:54 PM [facility] EOSINOPHILS ABSOLUTE 0.09 0.04 - 0.54 K/uL 05/03/2016 11:54 PM [facility] TOTAL CELLS COUNTED IN DIFF 100 05/03/2016 11:54 PM [facility] PLATELET EST. Consistent with Count 05/03/2016 11:54 PM [facility] RBC MORPHOLOGY Normal 05/03/2016 11:54 PM [facility] Blood 05/03/2016 4:07 PM CDT 05/03/2016 8:23 PM CDT Arabic Joaquín Sotelo MD HEMATOLOGY ORDE RABLES [facility] Final Result [facility] CLIA # [id number] [address] [place] [address] * (ABNORMAL) TSH (05/03/2016 4:07 PM CDT) TSH 6.69(H) 0.27 - 4.20 uIU/mL 05/03/2016 10:58 PM T [facility] Blood 05/03/2016 4:07 PM CDT 05/03/2016 8:23 PM CDT Luther Sotelo MD CHEMISTRY ORDER DESI Final Result Performing Organization Address City/[facility]/ZIP Co de Phone Number [facility] CLIA # [id number] [address] [place] [address] * (ABNORMAL) LIPID PANEL (05/03/2016 4:07 PM CDT) CHOLESTEROL 199 <200 mg/dL 05/03/2016 10:59 PM CDT [facility] TRIGLYCERIDE 88 <150 mg/dL 05/03/2016 10:59 PM CDT [facility] HDL 56 40 - 59 mg/dL 05/03/2016 10:59 PM CDT [facility] LDL CALCULATED 125(H) <100 mg/dL 05/03/2016 10:59 PM CDT [facility] NON-HDL CHOLESTEROL 143(H) <130 mg/dL 05/03/2016 10:59 PM CDT [facility] Blood 05/03/2016 4:07 PM CDT 05/03/2016 8:23 PM CDT Narrative [facility] - 05/03/2016 10:59 PM CDT [...] ORDER DESI Final Result Performing Organization Address City/[facility]/ZIP Co de Phone Number [facility] CLIA # [id number] [address] [place] [address] * T4 FREE (05/03/2016 4:07 PM CDT) T4 FREE 1.19 0.93 - 1.70 ng/dL 05/03/2016 10:59 PM [facility] Blood 05/03/2016 4:07 PM CDT 05/03/2016 8:23 PM CDT us Luther Sotelo MD CHEMISTRY ORDER DESI Final Result [facility] CLIA # [id number] [address] [place] [address] * (ABNORMAL) COMPREHENSIVE METABOLIC PANEL (05/03/2016 4:07 PM CDT) [facility] SODIUM 140 136 - 145 mmol/L 05/03/2016 10:59 PM [facility] POTASSIUM 4.1 3.5 - 5.1 mmol/L 05/03/2016 10:59 PM [facility] CHLORIDE 98 98 - 107 mmol/L 05/03/2016 10:59 PM [facility] CO2 25 22 - 29 mmol/L 05/03/2016 10:59 PM [facility] CALCIUM 9.8 8.8 - 10.2 mg/dL 05/03/2016 10:59 PM [facility] BUN 12 8 - 23 mg/dL 05/03/2016 10:59 PM [facility] CREATININE 0.72 0.51 - 0.95 mg/dL 05/03/2016 10:59 PM [facility] GLUCOSE 78 74 - 106 mg/dL 05/03/2016 10:59 PM [facility] TOTAL PROTEIN 7.7 6.6 - 8.7 g/dL 05/03/2016 10:59 PM [facility] ALBUMIN 4.5 3.5 - 5.2 g/dL 05/03/2016 10:59 PM [facility] BILIRUBIN TOTAL 0.2 0.0 - 1.2 mg/dL 05/03/2016 10:59 PM [facility] ALKALINE PHOSPHATASE 115(H) 35 - 104 U/L 05/03/2016 10:59 PM CDT [facility] AST 25 10 - 35 U/L 05/03/2016 10:59 PM CDT [facility] ALT 32 10 - 35 U/L 05/03/2016 10:59 PM CDT [facility] GFR >60 >=60 mL/min/1.7 3 sq meter 05/03/2016 10:59 PM T [facility] Comment: eGFR has not been validated [...] 3 sq meter 05/03/2016 10:59 PM T [facility] ANION GAP 17 12 - 20 mmol/L 05/03/2016 10:59 PM [facility] Blood 05/03/2016 4:07 PM CDT 05/03/2016 8:23 PM CDT us Luther Sotelo MD CHEMISTRY ORDER DESI [id number] [address] [place] [address] * (ABNORMAL) CBC WITH DIFFERENTIAL (05/03/2016 4:07 PM CDT) WBC 8.9 4.0 - 10.0 K/uL 05/03/2016 10:44 PM CDT [facility] RBC 5.58(H) 3.93 - 5.22 M/uL 05/03/2016 10:44 PM [facility] HEMOGLOBIN 14.7 11.2 - 15.7 g/dL 05/03/2016 10:44 PM T [facility] HEMATOCRIT 44.5 34.1 - 44.9 % 05/03/2016 10:44 PM [facility] MCV 79.7 79.4 - 94.8 fL 05/03/2016 10:44 PM [facility] MCH 26.3 25.6 - 32.2 pg 05/03/2016 10:44 PM [facility] MCHC 33.0 32.2 - 35.5 g/dL 05/03/2016 10:44 PM [facility] RDW 16.3(H) 11.0 - 14.5 % 05/03/2016 10:44 PM [facility] RDW-STDEV 47.3 36.9 - 56.9 fL 05/03/2016 10:44 PM [facility] PLATELETS 357(H) 163 - 337 K/uL 05/03/2016 10:44 PM [facility] MPV 10.9 10.0 - 14.8 fL 05/03/2016 10:44 PM [facility] Blood 05/03/2016 4:07 PM CDT 05/03/2016 8:23 PM CDT Arabic Joaquín Sotelo MD HEMATOLOGY TIM REYNOSO Final Result [facility] CLIA # [id number] [address] [place] [address] documented in this encounter Visit Diagnoses Not on filedocumented in this encounter
[2025-05-19 18:59] LABS: Troponin 5 2HR 13.17 ng/L (0-10)
[2025-05-19] MEDS: ondansetron 2 mg/ML SDV 2 mL 4 MG IVP (19:07)
[2025-05-19] MEDS: cefTRIAXone 1,000 mg SDV 1000 MG IVP (19:13)
[2025-05-19 19:25] LABS: Troponin 5 2HR Delta -0.83 ABS# (0-10)
[2025-05-19 19:50] LABS: Troponin(5th) Baseline 12 ng/L (0-10)
--- NOTE | 2025-05-19 20:23 | ECG_ITS ---
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 Measurements Intervals [place] Rate: 105 P: 0 ME: 0 QRS: 77 QRSD: 72 T: 66 QT: 311 QTc: 413 Interpretive Statements ATRIAL FIBRILLATION WITH RAPID VENTRICULAR RESPONSE SEPTAL MYOCARDIAL INFARCTION , PROBABLY OLD [40+ ms Q WAVE IN V1/V2] Compared to ECG 05/19/2025 15:46:46 No significant changes Electronically Signed On 05-21-2025 08:09:28 CDT by Marilyn Moore M.D. [email or web address]
--- NOTE | 2025-05-19 20:30 | PC.NURSE ---
Upon arrival from ED, pt blood pressure 79/57. Cardizem stopped and contacted Dr. Robles. New orders received to stop cardizem, 1 liter NS at 250 per hour, then maintenance fluids at 75 per hour.
[2025-05-19] MEDS: amiodarone 150 MG/100 ML PREMIX 400 MG IV (21:02)
[2025-05-19] MEDS: heparin 5,000 unit/mL INJ 1 mL 5000 UNIT SUBCUT (21:06)
[2025-05-19 22:04] LABS: Troponin 5 2HR 12.15 ng/L (0-10); Troponin 5 2HR Delta 0.15 ABS# (0-10)
[2025-05-19 22:46] LABS: Coronavirus 229E,HKU1,NL63,OC4 Not Detected (NOT DETECT); Parainfluenza Virus Type 1 Not Detected (NOT DETECT); Parainfluenza Virus Type 2 Not Detected (NOT DETECT); Parainfluenza Virus Type 3 Not Detected (NOT DETECT); Parainfluenza Virus Type 4 Not Detected (NOT DETECT); SARS-COV-2 Not Detected (NOT DETECT)
[2025-05-20] VITALS (50 sets, daily range): BP systolic 83–164; BP diastolic 55–87; PULSE 55–124; RESP 17–32; TEMP 36.2–36.7; O2SAT 93–100
--- NOTE | 2025-05-20 00:52 | ECG_ITS ---
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 Measurements Intervals [place] Rate: 60 P: 50 OK: 144 QRS: 66 QRSD: 65 T: 70 QT: 405 QTc: 408 Interpretive Statements SINUS RHYTHM LOW QRS VOLTAGE IN PRECORDIAL LEADS [QRS DEFLECTION < 1.0 mV IN CHEST LEADS] ANTEROSEPTAL MYOCARDIAL INFARCTION , PROBABLY OLD [40+ ms Q WAVE IN V1-V4] Compared to ECG 05/19/2025 20:23:00 Low QRS voltage now present Atrial fibrillation no longer present Myocardial infarct finding still present Electronically Signed On 05-21-2025 18:34:31 CDT by Marilyn Moore M.D. [email or web address]
[2025-05-20 01:44] LABS: Troponin 5 6HR 11.58 ng/L (0-10)
[2025-05-20 01:45] LABS: Troponin 5 6HR Delta -0.42 ng/L (0-12)
[2025-05-20 05:22] LABS: Hematocrit 41.0 % (36-47); Hemoglobin 12.10 g/dL (11.27-16.99); Mean Corpuscular HGB Conc 29.5 g/dL (30-55); Mean Corpuscular Hemoglobin 25.1 pg (27-33); Mean Corpuscular Volume 84.9 fl (85-98); Nucleated Red Blood Cells % 0 %; Platelet Count 288 10^3/cmm (157-399); Red Blood Count 4.83 10^6/uL (3.85-5.65); White Blood Count 6.88 10^3/uL (3.29-11.43)
--- NOTE | 2025-05-20 05:48 | PC.NURSE ---
Void Unable to measure 2/3 voids as patient soiled dennis pad.
[2025-05-20 05:54] LABS: Alanine Aminotransferase 15 U/L (0-33); Albumin Level 3.5 g/dL (3.5-5.2); Alkaline Phosphatase 102 U/L (35-105); Anion Gap 16.5 (5-19); Aspartate Amino Transferase 18 U/L (0-32); Blood Urea Nitrogen 9 mg/dL (8-23); Calcium 8.6 mg/dL (8.5-10.5); Carbon Dioxide 20 mmol/L (22-29); Chloride 107 mmol/L (98-107); Creatinine Clr Calc Pharmacy 61.9764; Globulin 2.9 g/dL (1.3-4.6); Glucose 153 mg/dL (65-115); Osmolality Calculated 290 mOsm/kg (285-295); Potassium 4.5 mmol/L (3.5-5.1); Sodium 139 mmol/L (136-145); Total Protein 6.4 g/dL (6.6-8.7)
[2025-05-20] MEDS: heparin 5,000 unit/mL INJ 1 mL 5000 UNIT SUBCUT (07:23)
[2025-05-20] MEDS: methylPREDNISolone sod succ 40 mg/mL INJ IVP (08:20)
--- NOTE | 2025-05-20 09:05 | P.PN_ITS ---
Subjective 2 Subjective: The patient was seen in the morning, she was feeling much better however she was having cough with mild phlegm The patient heart rate is better controlled in the range of 60s to 70s. Currently on amiodarone drip. Still mild wheezy Vitals/I&O/Wt Last Vital Signs Temp 97.4 F L 05/20/25 08:00 Pulse 72 05/20/25 08:00 Resp 22 H 05/20/25 08:00 BP 134/73 05/20/25 08:00 Pulse Ox 98 05/20/25 08:00 O2 Del Method Nasal Cannula 05/20/25 08:00 O2 Flow Rate 5 05/20/25 08:00 FiO2 40 05/20/25 07:57 05/19/25 05/20/25 05/20/25 22:59 06:59 14:59 Intake Total 1371.333 / 7036.525 7340 / 3015.333 Output Total 100 / 100 Balance 1371.333 / 2012.229 5071 / 2915.333 Weight last 48 hrs Weight 80.467 kg Weight 70.76 kg Physical Exam 2 Narrative: Gen: alert and oriented to time place and person, sitting comfortably without any distress speaking in full sentences on 5 L nasal cannula oxygen which is her home baseline HEENT: unremarkable exam, most mucous membranes, atraumatic, normocephalic Neck: Supple, full range of motion, no observable masses or LN Lungs: Bilateral equal air entry with diffuse mild wheezes on both sides, some coarse crackles secondary to conduction from the phlegm, CV: Irregularly irregular rhythm with normal rate, no edema, diminished breath sounds bilaterally, tachypneic, no jVD Abdomen: Soft, nondistended, No rebound tenderness. MSK: No joint swelling, no redness. Skin: No rashes, petechiae, lesions. Normal color per patient. Neuro: Psych: Appropriate for situation. Data 05/20/25 03:37 05/20/25 03:37 Micro: Microbiology 05/19/25 18:25 Blood Culture - Preliminary Blood SPECIMEN COLLECTED 05/19/25 18:27 Blood Culture - Preliminary Blood SPECIMEN COLLECTED A&P Assessment and plan 1. Atrial fibrillation with rapid ventricular response: 2. Coronary artery disease: 3. Acute exacerbation of chronic obstructive airways disease: 4. Peripheral arterial disease: 5. Benign essential HTN: 6. Emphysema/COPD: 7. Atherosclerotic heart disease of [place] coronary artery with other forms of angina pectoris: 8. Mixed hyperlipidemia: 9. Bilateral carotid artery stenosis without cerebral infarction: 10. Acute exacerbation of chronic obstructive pulmonary disease: 11. GERD (gastroesophageal reflux disease): 12. Hypothyroidism: Plan: AT fib: - Continue on amiodarone drip and monitor vitals -Heart rate better controlled hold beta-dinah at this moment -Cardiology consulted and to follow the plan -Echo ( last echo was done this yr 10/2024: EF: 67% ) -trop trend was not remarkable -Telemetry to continue - Monitor and correction of electrolytes specially magnesium and potassium acute COPD exacerbation: having increased sob and phlegm ceftriaxone and azithromycin to continue blood cultures till date no growth Possible atypical pneumonia, respiratory viral panel was negative ipratropium nebs and to add albuterol 3 times daily since the patient is better in terms of her heart rate, to hold albuterol nebulization if the patient is getting tachycardia above 110-120 methylpred 40mg daily montelukast daily CAD: continue clopidogrel Since the blood pressure is better controlled to resume home medication nitrates Hold nitrates if the blood pressure systolic dropping less than 100 echo to follow statins Hypothyroidism: continue home dose levothyroxine TSH normal GERD: famotidine ondansterone for nausea/vomiting HLD: continue statins HTN: hold any anti HTN at the moment VTE: heparin diet: cardiac diet PDMP PDMP Reviewed: Not Reviewed Attestations 2 Medical Necessity Statement*: Cinthia Palacios's hospital stay will require greater than 2 midnights for management for atfib with RVR, acute COPD exacerbation Time Spent in Patient Care: 16 - 35 minutes (>than 50% of time sp ent in counselling and/or direct pt care on unit) . Critical Care Time: The high probability of a clinically significant, sudden or life threatening deterioration, as referenced in this documentation, required my full and direct attention, intervention and personal management. The critical care time shown is in addition to time spent performing any reported separately billable procedures and includes the following: [x] Data and vital sign review and interpretation [x ] Patient assessment, examination and intervention [x] Medication orders and management [x] Patient/Family updates as able [x] Care Coordination and Documentation. Critical Care Time (min): 35 Other Attestations: Patient condition has been discussed at length with the patient/family, I have independently reviewed the chart labs imaging and diagnostics and EKG. the goals of care and code status with the patient/family/NOK/legal sales representative education courses, and documented accordingly. The patient/family has been informed about the current condition and further plan of care. Agreed with the plan of care and understood without any language barrier. This documentation was created by [employer] refuse collector software. Every effort was made to ensure accuracy of refuse collector. Any obvious errors or omissions should be clarified with the author of the document. Coding Level of Care Code Critical Care >/= 30 minutes Diagnoses Atrial fibrillation with rapid ventricular response I48.91 Coronary artery disease I25.10 Acute exacerbation of chronic obstructive airways disease J44.1 Peripheral arterial disease I73.9 Benign essential HTN I10 Emphysema/COPD J43.9 Atherosclerotic heart disease of [place] coronary artery with other forms of angina pectoris I25.118 Mixed hyperlipidemia E78.2 Hyperlipidemia type: mixed hyperlipidemia Bilateral carotid artery stenosis without cerebral infarction I65.23 Acute exacerbation of chronic obstructive pulmonary disease J44.1 GERD (gastroesophageal reflux disease) K21.9 Hypothyroidism E03.9
[2025-05-20] MEDS: FUROsemide 10 mg/mL SDV 2mL 20 MG IVP (10:31)
[2025-05-20] MEDS: cefTRIAXone 1,000 mg SDV 1000 MG IVP (18:51)
--- NOTE | 2025-05-20 19:24 | XRR_ITS ---
PROCEDURE INFORMATION: Exam: XR Chest Exam date and time: 05/20/2025 7:29 PM Age: 70 years old Clinical indication: Dyspnea; Additional info: Respitatory distress TECHNIQUE: Imaging protocol: Radiologic exam of the chest. Views: 1 view. COMPARISON: CR (CHEST, ) 05/19/2025 4:10 PM FINDINGS: Tubes, catheters and devices: Overlying chest leads and tubes. Aortic atherosclerosis. Chronic appearing strands in the lung parenchyma. Lungs: Flattening of the hemidiaphragms. Chronic appearing strands in the lung parenchyma. Pleural spaces: Mild blunting of costophrenic angles, can not exclude tiny effusions although likely related to hyperinflation. Heart/Mediastinum: Unremarkable. No cardiomegaly. Bones/joints: Unremarkable. XR/XR chest 1V portable [id number] IMPRESSION: No definite acute infiltrate.
--- NOTE | 2025-05-20 19:26 | PC.NURSE ---
Patient becomes short of breath and very anxious. Called patients sons per patient request and requested they come up to see her. Notified RT and Dr. Paty Kilgore RN. Resting comfortably on bipap at present time.
--- NOTE | 2025-05-20 19:26 | PM.CONSULT ---
Providers/Reason For Consult Consulting Physician/Specialty*: OLIMPIA Moore MD/cardiology Reason for Consult*: Patient with atrial fibrillation and rapid ventricular rate Requesting Physician: Dr. Pineda Attending Physician: Judy Pineda MD Primary Care Provider: Katie Dobbs History of Present Illness History of Present Illness Cinthia Palacios is a 70 year old female with a history of severe COPD, is admitted to the hospital through the emergency room where she presented with complaints of low blood pressure and a fast heartbeat. She was found to be in atrial fibrillation with rapid ventricular rate. She was started on IV amiodarone. Currently she seems to be in sinus rhythm. Cardiology consult is requested for further cardiac evaluation and recommendations. This patient is known to have severe COPD and is on 5 L of oxygen by nasal cannula. She is under hospice care?. She has history of anxiety disorder. She also is known to have high blood pressure, dyslipidemia, mild to moderate coronary artery disease, peripheral artery disease, carotid artery disease with chronic total occlusion of the left ICA and less than 50% stenosis in the right ICA. Patient was found to have a low blood pressure by the hospice nurse yesterday at home. Her systolic blood pressure was in the 80s. She was having more shortness of breath. She also had an episode of left lower extremity weakness/numbness. This better lasted for 10 to 15 minutes and then gradually subsided. She was brought to the emergency room with these complaints. She has no chest pain or chest tightness. She may have occasional episodes of palpitations. No syncopal episodes She has no fever or chills. Has a chronic intermittent cough. No other specific complaints. Has no previous documented history for atrial fibrillation. Review of Systems Narrative: CONSTITUTIONAL: No fever or chills. EYES: No blurring of vision or other visual disturbances lately. ENT: No hoarseness of voice, auditory disturbances or sore throat. CARDIOVASCULAR: As mentioned above. RESPIRATORY: As mentioned above GASTROINTESTINAL: No hematemesis or melena. GENITOURINARY: No dysuria or hematuria. INTEGUMENTARY: No skin rashes or history of skin cancer. NEURO: Transient weakness/numbness of the left lower extremity, etiology presumed PSYCHIATRIC: No history of psychosis or major depression. HEMATOLOGIC: No bleeding disorders or significant anemia. ENDOCRINE: No history of polyuria or polydipsia. MUSCULOSKELETAL: No recent joint pain or swelling. ALLERGY/IMMUNOLOGY: As mentioned above. Medications/Allergies Home Medications ?Medication ?Instructions ?Recorded ?Confirmed ?Last Taken ?Type acetaminophen 500 mg tablet 500 mg PO Q6H PRN Pain 04/04/23 05/19/25 05/19/25 History levothyroxine 50 mcg tablet 50 mcg PO DAILY@08 04/04/23 05/19/25 05/19/25 History cam boot to left #1 ea 04/12/23 05/19/25 Unknown Rx ASO to left #1 ea 05/02/23 05/19/25 Unknown Rx Rollator Walker #1 ea 05/25/23 05/19/25 Unknown Rx albuterol sulfate 90 mcg/actuation 2 puff inhalation QID PRN 11/27/24 05/19/25 02/24/25 Rx aerosol inhaler Shortness Of Breath #8.5 grams albuterol sulfate 2.5 mg/3 mL 2.5 mg inhalation QID PRN 02/25/25 05/19/25 Unknown History (0.083 %) solution for nebulization Shortness Of Breath cetirizine 10 mg tablet 10 mg PO DAILY 02/25/25 05/19/25 05/19/25 History cilostazol 100 mg tablet 100 mg PO BID 02/25/25 05/19/25 05/19/25 History clopidogrel 75 mg tablet 75 mg PO DAILY 02/25/25 05/19/25 05/19/25 History isosorbide mononitrate 30 mg 30 mg PO DAILY 02/25/25 05/19/25 05/19/25 History tablet,extended release 24 hr metoprolol tartrate 50 mg tablet 50 mg PO BID 02/25/25 05/19/25 05/19/25 History pantoprazole 40 mg tablet,delayed 40 mg PO DAILY 02/25/25 05/19/25 05/19/25 History release rosuvastatin 40 mg tablet 40 mg PO BEDTIME 02/25/25 05/19/25 05/18/25 History alprazolam 0.25 mg tablet 0.25 mg PO Q6H PRN Anxiety 05/19/25 05/19/25 Unknown History lorazepam 0.5 mg tablet (Ativan) 0.5 mg PO Q4H PRN 05/19/25 05/19/25 Unknown History restlessness/anxiety montelukast 10 mg tablet 10 mg PO DAILY 05/19/25 05/19/25 Unknown History Allergies Allergy/AdvReac Type Severity Reaction Status Date / Time diphenhydramine (From Allergy Intermediate ALGY-Hives Verified 05/19/25 15:50 Benadryl) sulfabenzamide Allergy Intermediate swelling Verified 05/19/25 15:50 Current Medications Generic Name Dose Route Start Last Admin Trade Name Freq PRN Reason Stop Dose Admin Albuterol Sulfate 2.5 mg 05/20/25 14:00 05/20/25 14:18 Albuterol 2.5 Mg/0.5 Ml Neb INHALATION 2.5 mg TID.RESP MICA Administration Atorvastatin Calcium 80 mg 05/19/25 21:00 05/19/25 21:08 Atorvastatin 40 Mg Tablet PO 80 mg BEDTIME MICA Administration Benzonatate 200 mg 05/20/25 09:45 05/20/25 15:44 Benzonatate 100 Mg Capsule PO 200 mg TID PRN Administration COUGH Ceftriaxone Sodium 1,000 mg 05/20/25 19:00 05/20/25 18:51 Ceftriaxone 1,000 Mg Sdv IVP 1,000 mg Q24H MICA Administration Protocol Clopidogrel Bisulfate 75 mg 05/20/25 09:00 05/20/25 08:20 Clopidogrel 75 Mg Tablet PO 75 mg DAILY MICA Administration Famotidine 20 mg 05/20/25 10:30 05/20/25 10:31 Famotidine 20 Mg/2 Ml Inj IVP 20 mg Q12H MICA Administration Heparin Sodium (Porcine) 5,000 unit 05/19/25 20:11 05/20/25 07:23 Heparin 5,000 Unit/Ml Inj 1 Ml SUBCUT 5,000 unit Q12H MICA Administration Azithromycin 500 mg/ Sodium 250 mls @ 250 mls/hr 05/20/25 19:00 05/20/25 18:51 Chloride IV 250 mls/hr Q24H MICA Administration Protocol Amiodarone HCl/Dextrose 360 mg in 200 mls @ 0 mls/hr 05/19/25 21:00 05/20/25 15:52 Nexterone IV 0.5 mg/min .Q0M MICA 16.67 mls/hr Protocol Administration Per Protocol Levothyroxine Sodium 50 mcg 05/20/25 06:00 05/20/25 05:43 Levothyroxine 50 Mcg Tablet PO 50 mcg DAILY@0600 MICA Administration Lorazepam 0.5 mg 05/19/25 20:11 05/20/25 17:47 Lorazepam 0.5 Mg Tablet PO 0.5 mg Q4H PRN Administration restlessness/anxiety Methylprednisolone Sodium Succinate 40 mg 05/20/25 09:00 05/20/25 08:20 Methylprednisolone Sod Succ 40 Mg/Ml Inj IVP 40 mg DAILY MICA Administration Montelukast Sodium 10 mg 05/20/25 09:00 05/20/25 08:20 Montelukast Sodium 10 Mg Tablet PO 10 mg DAILY MICA Administration Senna 17.2 mg 05/19/25 21:00 05/19/25 21:08 Sennosides 8.6 Mg Tablet PO 17.2 mg BEDTIME MICA Administration PFSH Acute PFSH: Medical History Acute exacerbation of chronic obstructive pulmonary disease Peripheral arterial disease Benign essential HTN Viral pneumonia Influenza Hypoxia Acute bronchitis Acute on chronic respiratory failure with hypoxia and hypercapnia Grade III diastolic dysfunction MURILLO (dyspnea on exertion) Atherosclerosis of coronary artery Hypertension Adult hypothyroidism Hyperlipemia Dyspnea on exertion Malaise and fatigue Chronic obstructive asthma with exacerbation Emphysema/COPD GERD (gastroesophageal reflux disease) Back pain Palpitations Hypothyroidism Insomnia Park's palsy Hx of hyperlipidemia Anxiety Hx of breast cancer CAD (coronary artery disease) History of hypertension PAD (peripheral artery disease) Syncope Bilateral carotid artery stenosis without cerebral infarction Surgical History H/O tubal ligation History of cholecystectomy Status post carotid endarterectomy Family History Mother Lung disease Family/Other Cancer Grandmother CAD (coronary artery disease) Stroke Father Bleeding disorder Denies family history of Diabetes Clotting disorder Dementia Chronic kidney disease (CKD) Suicide Anesthesia complication Social History Smoking and tobacco/nicotine status: current every day tobacco/nicotine user cigarettes Packs smoked per day: 1 Years cigarettes smoked: 31 [ Other cigarette details: Started at age 22] Alcohol intake: never Substance/Drug Use: never Vitals/I&O/Wt Last Vital Signs Temp 98.0 F 05/20/25 16:00 Pulse 88 05/20/25 19:00 Resp 21 H 05/20/25 19:00 BP 155/81 05/20/25 19:00 Pulse Ox 96 05/20/25 19:00 O2 Del Method Nasal Cannula 05/20/25 18:00 O2 Flow Rate 5 05/20/25 18:00 FiO2 40 05/20/25 14:20 05/20/25 05/20/25 05/20/25 06:59 14:59 22:59 Intake Total 1644 / 3015.333 1057.5 / 1057.5 200 / 1257.5 Output Total 100 / 100 Balance 1544 / 2915.333 1057.5 / 1057.5 200 / 1257.5 Weight last 48 hrs Weight 177 lb 6.4 oz Weight 156 lb Physical Exam Narrative: GENERAL: The patient is alert and oriented times three. Not in any acute distress. HEENT: No significant pallor, icterus or lymphadenopathy.Oral cavity: There are no mucous membrane lesions. NECK: Trachea appears to be central. No masses noted. No JVD or thyromegaly appreciated. RESPIRATORY: Chest is symmetrical and emphysematous. Breath sounds are heard bilaterally with a diminished intensity of breath sounds in the bases BREASTS: Deferred. HEART: The heart sounds are normal. No S3 or S4. No significant murmurs. No pericardial rub ABDOMEN: No vessel pulsations or distention. No tenderness. No organomegaly appreciated. Bowel sounds are normally heard. : Deferred. RECTAL: Deferred. LYMPHATIC: No lymphadenopathy noted in the neck. EXTREMITIES: Peripheral pulses are weak bilaterally. MUSCULOSKELETAL: No acute joint deformities or swelling SKIN: There are no significant rashes or ecchymosis NEUROPSYCHIATRIC: The patient is alert and oriented x3. She is on a BiPAP Data 05/21/25 03:09 05/21/25 03:09 Micro: Microbiology 05/19/25 18:25 Blood Culture - Preliminary Blood NEGATIVE TO DATE 05/19/25 18:27 Blood Culture - Preliminary Blood NEGATIVE TO DATE Other data: Echocardiogram from 05/20/2025 Normal left ventricular size and systolic function, EF 73.5%. No regional wall motion abnormalities. Normal cardiac chamber sizes. Trace tricuspid valve regurgitation. PA pressure estimation could not be performed due to poor Doppler signals There is no pericardial effusion. Compared to the study from 11/23/2024, there may not be a significant change EKG from 05/20/2025 Sinus rhythm with poor R wave progression. No acute ST-T changes A&P Assessment and plan 1. Atrial fibrillation with rapid ventricular response: Patient is in sinus rhythm at this time. The IV amiodarone may be continued till the current infusion is finished. She may be switched to amiodarone 400 mg p.o. twice daily. She also restarted on Eliquis 5 mg p.o. twice daily. Possible side effects of these medication were discussed in detail with the patient and her family which they understood well. 2. Chronic respiratory failure with hypoxia and hypercapnia: Management as per the primary 3. Bilateral carotid artery stenosis without cerebral infarction: Continue on the current management. 4. Atherosclerotic heart disease of [place] coronary artery with other forms of angina pectoris: Patient had the most recent cardiac catheterization in November of this year. She was found to have mild to moderate diffuse coronary disease. May continue on the risk modifying measures. 5. Peripheral arterial disease: Because of the sudden onset of left leg weakness/tingling, I may go ahead and do bilateral arterial Doppler examination to further evaluate. 6. Benign essential HTN: Patient is currently with the stage II hypertension. Antihypertensive medication may be optimized. 7. Mixed hyperlipidemia: Will continue on the current management Plan: Her other problems are COPD exacerbation Elevated white cell count Anxiety disorder Based on the patient clinical progress, further recommendations will be made. Thank for the opportunity to evaluate this patient and make these recommendations PDMP PDMP Reviewed: Not Reviewed Coding Level of Care Code 14991 Diagnoses Atrial fibrillation with rapid ventricular response I48.91 Chronic respiratory failure with hypoxia and hypercapnia J96.11; J96.12 Bilateral carotid artery stenosis without cerebral infarction I65.23 Atherosclerotic heart disease of [place] coronary artery with other forms of angina pectoris I25.118 Peripheral arterial disease I73.9 Benign essential HTN I10 Mixed hyperlipidemia E78.2 Hyperlipidemia type: mixed hyperlipidemia
--- NOTE | 2025-05-20 20:11 | USCV_ITS ---
Cinthia Palacios Age: 70 Gender: F : 1955 Exam Date: 05/20/2025 08:25 Ordering Phys: Judy Pineda MD Technologist: TIRSTIAN Exam Location: [facility] [place] Indication: Afib BP: 112 / 81 HR: 59 Rhythm: Sinus Technical Quality: Adequate MEASUREMENTS (Male / Female) Normal Values 2D ECHO LV Diastolic Diameter PLAX 4.1 cm 4.2 - 5.9 / 3.9 - 5.3 cm IVS Diastolic Thickness 0.9 cm 0.6 - 1.0 / 0.6 - 0.9 cm IVS Systolic Thickness 1.5 cm LVPW Diastolic Thickness 0.8 cm 0.6 - 1.0 / 0.6 - 0.9 cm LVPW Systolic Thickness 1.6 cm LVOT Diameter 2.0 cm LV Ejection Fraction 2D Teich 62.9 % LV Ejection Fraction MOD 4C 61.9 % LV Ejection Fraction MOD 2C 71.6 % LV Ejection Fraction 2C AL 73.5 % LA Diameter 3.3 cm RA Systolic Volume 4C AL 26.0 ml RA Systolic Volume 4C MOD 25.1 ml LA Sys Volume AL 37.3 cm cubed LA Sys Volume Index AL 19.7 cm cubed/m squared Aorta at Sinotubular Diameter 1.8 cm IVC Diameter 1.5 cm M-MODE LA Ao Ratio MM 2.4 AV Cusp Separation MM 1.1 cm DOPPLER AV Peak Velocity 157.0 cm/s LVOT Peak Velocity 106.0 cm/s AV Area Cont Eq vti 2.3 cm squared AV Area Cont Eq pk 2.1 cm squared MV Peak Velocity 124.0 cm/s MV Area PHT 3.2 cm squared Mitral E to A Ratio 1.3 TR Peak Velocity 143.0 cm/s TR Peak Gradient 8.2 mmHg TV Peak E Velocity 53.0 cm/s PV Peak Velocity 79.0 cm/s FINDINGS Left Ventricle Normal left ventricular size and systolic function, EF 73.5%. No regional wall motion abnormalities. Right Ventricle Normal right ventricular size and systolic function. Right Atrium The right atrium is normal in size. Left Atrium The left atrium is normal in size. Mitral Valve No gross abnormalities no Aortic Valve No gross abnormalities no Tricuspid Valve Trace tricuspid valve regurgitation. Pulmonic Valve Pulmonic valve not well visualized. Pericardium No pericardial effusion. Aorta Normal aortic annulus size. IVC Inferior vena cava not visualized. CONCLUSIONS Normal left ventricular size and systolic function, EF 73.5%. No regional wall motion abnormalities. Normal cardiac chamber sizes. Trace tricuspid valve regurgitation. PA pressure estimation could not be performed due to poor Doppler signals There is no pericardial effusion. Compared to the study from 11/23/2024, there may not be a significant change Dr Marilyn Moore MD FAC (Electronically Signed) Final Date: 20 May 2025 16:48 S
--- NOTE | 2025-05-20 20:41 | USCV_ITS ---
Philip Cinthia Age: 70 Gender: F : 1955 Exam Date: 05/20/2025 21:49 Ordering Phys: Marilyn Moore MD ([email or web address]) Technologist: CRISPIN [place]am [place] [facility] [place] Indication: left leg numbness Risk Factors: unknown Previous Vascular Surgery: unknown RIGHT LEFT BP: 141.0 / 82.00 BP: 134.0/ 61.00 0 0 Waveform Velocity (cm/s) Velocity (cm/s) Waveform Biphasic 115.0 Iliac Prox 177.0 Biphasic Biphasic 139.0 Iliac Mid 203.0 Biphasic Biphasic 139.0 Iliac Distal 152.0 Triphasic Biphasic 127.0 WEARING APPAREL FOLDER 137.0 Triphasic Biphasic 104.0 SFA Prox 148.0 Triphasic Biphasic SFA Mid Biphasic 118.0 171.0 Biphasic 109.0 SFA Dist 93.0 Biphasic Biphasic 63.0 POP 82.0 Triphasic Biphasic 41.0 TRAFFIC CONTROL OPERATOR 38.0 Biphasic Biphasic 38.0 DPA 34.0 Biphasic 0.9 CASTRO 0.9 FINDINGS Mild diffuse plaques in the iliac and femoral arteries bilaterally Biphasic flow pattern in most of the arterial segments. Slightly elevated velocities in the left iliac arteries, possibly due to tortuosity Resting CASTRO 0.9 bilaterally CONCLUSIONS 1. Slightly diminished resting ABIs bilaterally, suggesting mild peripheral artery disease. 2. Mild diffuse plaque in the iliac and femoral arteries bilaterally 3. Patent femoral, popliteal and infrapopliteal vessels bilaterally Dr Marilyn Moore MD [facility] (Electronically Signed) Final Date: 21 May 2025 10:01 S
--- NOTE | 2025-05-20 21:00 | PC.NURSE ---
Resp. Distress: Patient began coughing and then was experiencing SOB and anxiety; RR 35-40s, HR 120-140s sinus tach, Spo2 88% on 5L NC. Dr. Robles and RT responded to bedside. Dr. Robles gave the following verbal orders: - Chest Xray STAT - 0.5mg ativan PO now - breathing treatment now - Start robitussin 10mL PO Q4h PRN - D/c tessalon pearls as patient says they are ineffective Dr. Moore was also at bedside and gave the following verbal orders: - Give 50mg metoprolol PO BID with first dose now - D/c heparin SUBCUT and replace with 5mg eliquis PO BID with first dose now - Continue amiodarone gtt until bag is complete (0400) and begin amiodarone 400mg PO BID with first dose starting 2 hours prior to completion of gtt (0200).
[2025-05-21] VITALS (40 sets, daily range): BP systolic 98–160; BP diastolic 60–91; PULSE 53–91; RESP 17–34; TEMP 36.4–36.8; O2SAT 84–100; BMI 32.8
[2025-05-21] MEDS: ondansetron 2 mg/ML SDV 2 mL 4 MG IVP (01:57)
[2025-05-21 03:49] LABS: Hematocrit 37.8 % (36-47); Hemoglobin 11.50 g/dL (11.27-16.99); Mean Corpuscular HGB Conc 30.4 g/dL (30-55); Mean Corpuscular Hemoglobin 24.8 pg (27-33); Mean Corpuscular Volume 81.6 fl (85-98); Nucleated Red Blood Cells % 0 %; Platelet Count 310 10^3/cmm (157-399); Red Blood Count 4.63 10^6/uL (3.85-5.65); White Blood Count 18.03 10^3/uL (3.29-11.43)
[2025-05-21 04:15] LABS: Alanine Aminotransferase 23 U/L (0-33); Albumin Level 3.9 g/dL (3.5-5.2); Alkaline Phosphatase 103 U/L (35-105); Anion Gap 13.3 (5-19); Aspartate Amino Transferase 26 U/L (0-32); Blood Urea Nitrogen 14 mg/dL (8-23); Calcium 9.3 mg/dL (8.5-10.5); Carbon Dioxide 28 mmol/L (22-29); Chloride 103 mmol/L (98-107); Creatinine Clr Calc Pharmacy 55.0901; Globulin 3.0 g/dL (1.3-4.6); Glucose 145 mg/dL (65-115); Osmolality Calculated 293 mOsm/kg (285-295); Potassium 4.3 mmol/L (3.5-5.1); Sodium 140 mmol/L (136-145); Total Protein 6.9 g/dL (6.6-8.7)
--- NOTE | 2025-05-21 07:58 | PM.PN ---
Subjective Subjective: Patient is still having shortness of breath. No chest pain or palpitations. Telemetry shows sinus rhythm Medications: Medication Review Details: Current Medications Acetaminophen (Acetaminophen 325 Mg Tablet) 650 mg PO Q6H PRN PRN Reason: MILD PAIN Last Admin: 05/20/25 21:35 Dose: 650 mg Albuterol Sulfate (Albuterol 2.5 Mg/0.5 Ml Neb) 2.5 mg INHALATION TID.RESP MICA Last Admin: 05/21/25 07:53 Dose: 2.5 mg Amiodarone HCl (Amiodarone 200 Mg Tablet) 400 mg PO BID MICA Last Admin: 05/21/25 02:26 Dose: 400 mg Apixaban (Apixaban 5 Mg Tablet) 5 mg PO BID@0900,2100 [facility] Last Admin: 05/20/25 20:05 Dose: 5 mg Atorvastatin Calcium (Atorvastatin 40 Mg Tablet) 80 mg PO BEDTIME MICA Last Admin: 05/20/25 20:05 Dose: 80 mg Benzonatate (Benzonatate 100 Mg Capsule) 200 mg PO TID PRN PRN Reason: COUGH Last Admin: 05/20/25 15:44 Dose: 200 mg Ceftriaxone Sodium (Ceftriaxone 1,000 Mg Sdv) 1,000 mg IVP Q24H [facility]; Protocol Last Admin: 05/20/25 18:51 Dose: 1,000 mg Clopidogrel Bisulfate (Clopidogrel 75 Mg Tablet) 75 mg PO DAILY [facility] Last Admin: 05/20/25 08:20 Dose: 75 mg Famotidine (Famotidine 20 Mg/2 Ml Inj) 20 mg IVP Q12H [facility] Last Admin: 05/20/25 21:35 Dose: 20 mg Guaifenesin/Dextromethorphan (Guaifenesin-Dextromethorphan Udc 10 Ml) 10 ml PO Q4H PRN PRN Reason: COUGH Azithromycin 500 mg/ Sodium (Chloride) 250 mls @ 250 mls/hr IV Q24H [facility]; Protocol Last Infusion: 05/20/25 20:09 Dose: Infused Amiodarone HCl/Dextrose (Nexterone) 360 mg in 200 mls @ 0 mls/hr IV .Q0M [facility]; Protocol Last Titration: 05/21/25 05:01 Dose: Infused Ipratropium [place] (Ipratropium 0.5 Mg/2.5 Ml Neb) 0.5 mg INHALATION Q4H.RESPIRATORY PRN PRN Reason: SHORTNESS OF BREATH Last Admin: 05/21/25 07:53 Dose: 0.5 mg Isosorbide Mononitrate (Isosorbide Mononitrate Er 30 Mg Tablet) 30 mg PO DAILY [facility] Levothyroxine Sodium (Levothyroxine 50 Mcg Tablet) 50 mcg PO DAILY@0600 [facility] Last Admin: 05/21/25 05:39 Dose: 50 mcg Lorazepam (Lorazepam 0.5 Mg Tablet) 0.5 mg PO Q4H PRN PRN Reason: restlessness/anxiety Last Admin: 05/21/25 04:22 Dose: 0.5 mg Methylprednisolone Sodium Succinate (Methylprednisolone Sod Succ 40 Mg/Ml Inj) 40 mg IVP DAILY [facility] Last Admin: 05/20/25 08:20 Dose: 40 mg Metoprolol Tartrate (Metoprolol Tartrate 50 Mg Tablet) 50 mg PO BID@0900,2100 [facility] Last Admin: 05/20/25 20:05 Dose: 50 mg Montelukast Sodium (Montelukast Sodium 10 Mg Tablet) 10 mg PO DAILY [facility] Last Admin: 05/20/25 08:20 Dose: 10 mg Ondansetron HCl (Ondansetron 2 Mg/Ml Sdv 2 Ml) 4 mg IVP Q6H PRN PRN Reason: NAUSEA AND VOMITING Last Admin: 05/21/25 01:57 Dose: 4 mg Senna (Sennosides 8.6 Mg Tablet) 17.2 mg PO BEDTIME [facility] Last Admin: 05/20/25 20:05 Dose: 17.2 mg Vitals/I&O/Wt Last Vital Signs Temp 97.7 F 05/21/25 04:00 Pulse 66 05/21/25 07:55 Resp 30 H 05/21/25 07:54 BP 158/91 05/21/25 06:00 Pulse Ox 97 05/21/25 07:55 O2 Del Method BiPAP 05/21/25 07:54 O2 Flow Rate 5 05/20/25 21:00 FiO2 40 05/21/25 07:55 05/20/25 05/21/25 05/21/25 22:59 06:59 14:59 Intake Total 450 / 1507.5 200 / 1707.5 Balance 450 / 1507.5 200 / 1707.5 Weight last 48 hrs Weight 174 lb 1 oz Weight 174 lb 1 oz Weight 177 lb 6.4 oz Weight 156 lb Physical Exam Narrative: GENERAL: The patient is alert and oriented times three. Not in any acute distress. HEENT: No significant pallor, icterus or lymphadenopathy.Oral cavity: There are no mucous membrane lesions. NECK: Trachea appears to be central. No masses noted. No JVD or thyromegaly appreciated. RESPIRATORY: Chest is symmetrical and emphysematous. Breath sounds are heard bilaterally with a diminished intensity of breath sounds in the bases BREASTS: Deferred. HEART: The heart sounds are normal. No S3 or S4. No significant murmurs. No pericardial rub ABDOMEN: No vessel pulsations or distention. No tenderness. No organomegaly appreciated. Bowel sounds are normally heard. : Deferred. RECTAL: Deferred. LYMPHATIC: No lymphadenopathy noted in the neck. EXTREMITIES: Peripheral pulses are weak bilaterally. MUSCULOSKELETAL: No acute joint deformities or swelling SKIN: There are no significant rashes or ecchymosis NEUROPSYCHIATRIC: The patient is alert and oriented x3. She is on a BiPAP Data 05/21/25 03:09 05/21/25 03:09 Other Labs: Laboratory Last Values WBC 18.03 10^3/uL (3.29-11.43) H 05/21/25 03:09 Corrected WBC Cancelled 05/19/25 16:13 RBC 4.63 10^6/uL (3.85-5.65) 05/21/25 03:09 Hgb 11.50 g/dL (11.27-16.99) 05/21/25 03:09 Hct 37.8 % (36-47) 05/21/25 03:09 MCV 81.6 fl (85-98) L 05/21/25 03:09 MCH 24.8 pg (27-33) L 05/21/25 03:09 MCHC 30.4 g/dL (30-55) 05/21/25 03:09 RDW 15.8 % (12.1-15.1) H 05/21/25 03:09 Plt Count 310 10^3/cmm (157-399) 05/21/25 03:09 MPV 10.4 fL (7.4-10.4) 05/21/25 03:09 Gran % Cancelled 05/19/25 16:13 Neut % (Auto) 82.9 % 05/21/25 03:09 Lymph % (Auto) 10.3 % 05/21/25 03:09 [place] % (Auto) 6.1 % 05/21/25 03:09 Eos % (Auto) 0.0 % 05/21/25 03:09 Baso % (Auto) 0.2 % 05/21/25 03:09 Neut # (Auto) 14.94 10^3/uL (1.8-7.7) H 05/21/25 03:09 Lymph # (Auto) 1.9 10^3/uL (0.8-4.8) 05/21/25 03:09 [place] # (Auto) 1.1 10^3/uL (0.2-0.9) H 05/21/25 03:09 Eos # (Auto) 0.0 10^3/uL (0.0-0.8) 05/21/25 03:09 Baso # (Auto) 0.0 10^3/uL (0.0-0.1) 05/21/25 03:09 Absolute Gran (auto) Cancelled 05/19/25 16:13 Nucleated RBC % (auto) 0 % 05/21/25 03:09 Nucleated RBCs # 0.0 /100WBC 05/21/25 03:09 D-Dimer 0.39 ug/mLFEU (0-0.59) 05/19/25 16:28 Specimen Type Arterial 05/21/25 09:48 Sample Site Radial, right 05/21/25 09:48 ABG pH 7.33 (7.35-7.45) L 05/21/25 09:48 ABG pCO2 57.4 mmHg (35-45) H 05/21/25 09:48 ABG pO2 82.2 mmHg (80.0-100.0) 05/21/25 09:48 ABG PO2/FiO2 Ratio 205 05/21/25 09:48 ABG HCO3 30.3 mmol/L (22-26) H 05/21/25 09:48 ABG O2 Saturation 96.6 05/21/25 09:48 ABG Base Excess 3.1 mmol/L (-2.0-2.0) H 05/21/25 09:48 Virgilio Test Pos 05/21/25 09:48 A-a O2 Gradient 17.7 mmHg (5-10) H 05/21/25 09:48 Hematocrit 38.1 % (37-47) 05/21/25 09:48 Hgb O2 Saturation 95.9 % (95-100) 05/21/25 09:48 Carboxyhemoglobin 0.6 %THgb (0.4-20.1) 05/21/25 09:48 Methemoglobin 0.2 % (0.4-1.5) L 05/21/25 09:48 Total Hemoglobin 12.4 g/dL (12-16) 05/21/25 09:48 Sodium 140.0 mmol/L (131-143) 05/21/25 09:48 Potassium 4.1 mmol/L (3.5-5.0) 05/21/25 09:48 Glucose 99.0 mg/dL (70-115) 05/21/25 09:48 Ionized Calcium 1.3 mmol/L (1.1-1.4) 05/21/25 09:48 O2 Delivery Device Bipap 05/21/25 09:48 FiO2 40.0 % 05/21/25 09:48 Non Licensed Nuclear Equipment Operator ID [id number] 05/21/25 09:48 Sodium 140 mmol/L (136-145) 05/21/25 03:09 Potassium 4.3 mmol/L (3.5-5.1) 05/21/25 03:09 Chloride 103 mmol/L (98-107) 05/21/25 03:09 Carbon Dioxide 28 mmol/L (22-29) 05/21/25 03:09 Anion Gap 13.3 (5-19) 05/21/25 03:09 BUN 14 mg/dL (8-23) 05/21/25 03:09 Creatinine 0.9 mg/dL (0.5-0.9) 05/21/25 03:09 GFR Calculation Not Reportable 05/21/25 03:09 Glucose 145 mg/dL (65-115) H 05/21/25 03:09 Calculated Osmolality 293 mOsm/kg (285-295) 05/21/25 03:09 Calcium 9.3 mg/dL (8.5-10.5) 05/21/25 03:09 Magnesium 2.2 mg/dL (1.7-2.3) 05/19/25 16:28 Total Bilirubin 0.2 mg/dL (0.15-1.2) 05/21/25 03:09 AST 26 U/L (0-32) 05/21/25 03:09 ALT 23 U/L (0-33) 05/21/25 03:09 Alkaline Phosphatase 103 U/L (35-105) 05/21/25 03:09 Troponin T Baseline 12 ng/L (0-10) H 05/19/25 19:28 Troponin T 120 Minute 12.15 ng/L (0-10) H 05/19/25 21:38 Delta Troponin T 0.15 ABS# (0-10) 05/19/25 21:38 Troponin T Hi Sens 6Hr 11.58 ng/L (0-10) H 05/20/25 01:18 Troponin T Hi Sens 6Hr Delta -0.42 ng/L (0-12) L 05/20/25 01:18 Total Protein 6.9 g/dL (6.6-8.7) 05/21/25 03:09 Albumin 3.9 g/dL (3.5-5.2) 05/21/25 03:09 Globulin 3.0 g/dL (1.3-4.6) 05/21/25 03:09 TSH 1.69 uIU/mL (0.27-4.20) 05/19/25 16:28 Urine Color Yellow (Yellow) 05/19/25 16:59 Urine Appearance Clear (CLEAR) 05/19/25 16:59 Urine pH 7.0 (5-7) 05/19/25 16:59 Ur Specific [place] 1.006 (1.005-1.030) 05/19/25 16:59 Urine Protein Negative (Negative) 05/19/25 16:59 Urine Glucose (UA) Negative (Normal) 05/19/25 16:59 Urine Ketones Negative (Negative) 05/19/25 16:59 Urine Blood Trace (Negative) A 05/19/25 16:59 Urine Nitrate Negative (Negative) 05/19/25 16:59 Urine Bilirubin Negative (Negative) 05/19/25 16:59 Urine Urobilinogen 0.2 mg/dL (Negative) 05/19/25 16:59 Ur Leukocyte Esterase Negative (Negative) 05/19/25 16:59 Urine RBC 3-5 /hpf (0-2) 05/19/25 16:59 Urine WBC 0-5 /hpf (0-5) 05/19/25 16:59 Ur Squamous Epith Cells 0-5 /hpf (0-5) 05/19/25 16:59 Amorphous Sediment Not Reportable 05/19/25 16:59 Urine Bacteria None seen /hpf (NONE) 05/19/25 16:59 Hyaline Casts 0-4 /lpf H 05/19/25 16:59 Adenovirus (PCR) Not detected (NOT DETECT) 05/19/25 19:05 C. pneumoniae DNA (PCR) Not detected (NOT DETECT) 05/19/25 19:05 Coronavirus 229E (PCR) Not detected (NOT DETECT) 05/19/25 19:05 Human Metapneumovir PCR Not detected (NOT DETECT) 05/19/25 19:05 Influenza A (H1) PCR Not detected (NOT DETECT) 05/19/25 19:05 Influ A (H1/09) PCR Not detected (NOT DETECT) 05/19/25 19:05 Influenza A (H3) PCR Not detected (NOT DETECT) 05/19/25 19:05 Influenza Type A (PCR) Not detected (NOT DETECT) 05/19/25 19:05 Influenza Type B (PCR) Not detected (NOT DETECT) 05/19/25 19:05 M. pneumoniae (PCR) Not detected (NOT DETECT) 05/19/25 19:05 Parainfluenza 1 (PCR) Not detected (NOT DETECT) 05/19/25 19:05 Parainfluenza 2 (PCR) Not detected (NOT DETECT) 05/19/25 19:05 Parainfluenza 3 (PCR) Not detected (NOT DETECT) 05/19/25 19:05 Parainfluenza 4 (PCR) Not detected (NOT DETECT) 05/19/25 19:05 RSV Type A (PCR) Not detected (NOT DETECT) 05/19/25 19:05 RSV Type B (PCR) Not detected (NOT DETECT) 05/19/25 19:05 Entero/Rhino (PCR) Not detected (NOT DETECT) 05/19/25 19:05 SARS-CoV-2 (PCR) Not detected (NOT DETECT) 05/19/25 19:05 Micro: Microbiology 05/19/25 18:25 Blood Culture - Preliminary Blood NEGATIVE TO DATE 05/19/25 18:27 Blood Culture - Preliminary Blood NEGATIVE TO DATE A&P Assessment and plan 1. Atrial fibrillation with rapid ventricular response: The patient is on amiodarone and metoprolol. Heart rate seems to be in the normal range and the rhythm is in sinus. May continue on the current management. Family would need to be on the tapering schedule 2. Chronic respiratory failure with hypoxia and hypercapnia: Management as per the primary 3. Bilateral carotid artery stenosis without cerebral infarction: Continue on the current management. Most recent duplex ultrasound revealed bilateral, less than 50% stenosis 4. Atherosclerotic heart disease of [place] coronary artery with other forms of angina pectoris: Patient had the most recent cardiac catheterization in November of this year. She was found to have mild to moderate diffuse coronary disease. May continue on the risk modifying measures. 5. Peripheral arterial disease: Because of the sudden onset of left leg weakness/tingling, I may go ahead and do bilateral arterial Doppler examination to further evaluate. Arterial duplex admission was done. The patient was found to have CASTRO of 0.9 bilaterally. 6. Benign essential HTN: The blood pressure seems to be getting under control. May continue on the current medications 7. Mixed hyperlipidemia: Will continue on the current management Plan: Her other problems are COPD exacerbation Elevated white cell count Anxiety disorder Amiodarone 400 mg p.o. twice daily for 1 week followed by 200 mg p.o. twice daily for 1 week followed by 200 mg p.o. daily Continue all medications as at this PDMP PDMP Reviewed: Not Reviewed Attestations Medical Necessity Statement*: Disposition as per the primary Coding Level of Care Code 37790 Diagnoses Atrial fibrillation with rapid ventricular response I48.91 Chronic respiratory failure with hypoxia and hypercapnia J96.11; J96.12 Bilateral carotid artery stenosis without cerebral infarction I65.23 Atherosclerotic heart disease of [place] coronary artery with other forms of angina pectoris I25.118 Peripheral arterial disease I73.9 Benign essential HTN I10 Mixed hyperlipidemia E78.2 Hyperlipidemia type: mixed hyperlipidemia
[2025-05-21] MEDS: methylPREDNISolone sod succ 40 mg/mL INJ IVP (08:53)
--- NOTE | 2025-05-21 10:01 | PC.NURSE ---
[address] Pineda of patient short of breath and wheezes, back on bipap and RT says peep is helping 1000 Dr. Pineda heren new orders obtained. Encouraging patient to breath and not talk, and keep bipap on instead of taking if off for a drink of coffee.
[2025-05-21 10:09] LABS: ABG PCO2 57.4 mmHg (35-45); ABG PH Result 7.33 (7.35-7.45); Alveolar-Arterial Oxygen Gradi 17.7 mmHg (5-10); Arterial Blood Gas Hematocrit 38.1 % (37-47); Blood Gas Allen Test Pos; Blood Gas Operator Identificat GD; Blood Gas Sample Site Radial, right; Blood Gas Sample Type Arterial; Carboxyhemoglobin 0.6 %THgb (0.4-20.1); Glucose Level-ABG 99.0 mg/dL (70-115); HCO3 ABG 30.3 mmol/L (22-26); Ionized Calcium Level - ABG 1.3 mmol/L (1.1-1.4); Methemoglobin 0.2 % (0.4-1.5); Oxygen Saturation ABG 96.6; PO2 ABG 82.2 mmHg (80.0-100.0); PO2 FiO2 Ratio Arterial Blood 205; Potassium Level - ABG 4.1 mmol/L (3.5-5.0); Sodium Level - ABG 140.0 mmol/L (131-143)
[2025-05-21] MEDS: FUROsemide 10 mg/mL SDV 4mL 40 MG IVP (10:21)
--- NOTE | 2025-05-21 13:15 | PM.PN ---
Subjective Subjective: Patient is still having shortness of breath. and on NIV having wheezes and mild distress alert and able to speak and complete sentences Medications: Medication Review Details: Current Medications Acetaminophen (Acetaminophen 325 Mg Tablet) 650 mg PO Q6H PRN PRN Reason: MILD PAIN Last Admin: 05/20/25 21:35 Dose: 650 mg Albuterol Sulfate (Albuterol 2.5 Mg/0.5 Ml Neb) 2.5 mg INHALATION TID.RESP MICA Last Admin: 05/21/25 07:53 Dose: 2.5 mg Amiodarone HCl (Amiodarone 200 Mg Tablet) 400 mg PO BID [facility]ICA Last Admin: 05/21/25 02:26 Dose: 400 mg Apixaban (Apixaban 5 Mg Tablet) 5 mg PO BID@0900,2100 [facility] Last Admin: 05/20/25 20:05 Dose: 5 mg Atorvastatin Calcium (Atorvastatin 40 Mg Tablet) 80 mg PO BEDTIME [facility]ICA Last Admin: 05/20/25 20:05 Dose: 80 mg Benzonatate (Benzonatate 100 Mg Capsule) 200 mg PO TID PRN PRN Reason: COUGH Last Admin: 05/20/25 15:44 Dose: 200 mg Ceftriaxone Sodium (Ceftriaxone 1,000 Mg Sdv) 1,000 mg IVP Q24H [facility]; Protocol Last Admin: 05/20/25 18:51 Dose: 1,000 mg Clopidogrel Bisulfate (Clopidogrel 75 Mg Tablet) 75 mg PO DAILY [facility] Last Admin: 05/20/25 08:20 Dose: 75 mg Famotidine (Famotidine 20 Mg/2 Ml Inj) 20 mg IVP Q12H [facility] Last Admin: 05/20/25 21:35 Dose: 20 mg Guaifenesin/Dextromethorphan (Guaifenesin-Dextromethorphan Udc 10 Ml) 10 ml PO Q4H PRN PRN Reason: COUGH Azithromycin 500 mg/ Sodium (Chloride) 250 mls @ 250 mls/hr IV Q24H [facility]; Protocol Last Infusion: 05/20/25 20:09 Dose: Infused Amiodarone HCl/Dextrose (Nexterone) 360 mg in 200 mls @ 0 mls/hr IV .Q0M [facility]; Protocol Last Titration: 05/21/25 05:01 Dose: Infused Ipratropium [place] (Ipratropium 0.5 Mg/2.5 Ml Neb) 0.5 mg INHALATION Q4H.RESPIRATORY PRN PRN Reason: SHORTNESS OF BREATH Last Admin: 05/21/25 07:53 Dose: 0.5 mg Isosorbide Mononitrate (Isosorbide Mononitrate Er 30 Mg Tablet) 30 mg PO DAILY [facility] Levothyroxine Sodium (Levothyroxine 50 Mcg Tablet) 50 mcg PO DAILY@0600 [facility] Last Admin: 05/21/25 05:39 Dose: 50 mcg Lorazepam (Lorazepam 0.5 Mg Tablet) 0.5 mg PO Q4H PRN PRN Reason: restlessness/anxiety Last Admin: 05/21/25 04:22 Dose: 0.5 mg Methylprednisolone Sodium Succinate (Methylprednisolone Sod Succ 40 Mg/Ml Inj) 40 mg IVP DAILY [facility] Last Admin: 05/20/25 08:20 Dose: 40 mg Metoprolol Tartrate (Metoprolol Tartrate 50 Mg Tablet) 50 mg PO BID@0900,2100 [facility] Last Admin: 05/20/25 20:05 Dose: 50 mg Montelukast Sodium (Montelukast Sodium 10 Mg Tablet) 10 mg PO DAILY [facility] Last Admin: 05/20/25 08:20 Dose: 10 mg Ondansetron HCl (Ondansetron 2 Mg/Ml Sdv 2 Ml) 4 mg IVP Q6H PRN PRN Reason: NAUSEA AND VOMITING Last Admin: 05/21/25 01:57 Dose: 4 mg Senna (Sennosides 8.6 Mg Tablet) 17.2 mg PO BEDTIME [facility] Last Admin: 05/20/25 20:05 Dose: 17.2 mg Vitals/I&O/Wt Last Vital Signs Temp 97.7 F 05/21/25 04:00 Pulse 65 05/21/25 12:23 Resp 27 H 05/21/25 12:00 BP 134/65 05/21/25 12:00 Pulse Ox 91 05/21/25 12:23 O2 Del Method BiPAP 05/21/25 07:54 O2 Flow Rate 5 05/20/25 21:00 FiO2 40 05/21/25 12:23 05/20/25 05/21/25 05/21/25 22:59 06:59 14:59 Intake Total 450 / 1507.5 200 / 1707.5 Output Total 850 / 850 Balance 450 / 1507.5 200 / 1707.5 -850 / -850 Weight last 48 hrs Weight 78.953 kg Weight 78.953 kg Weight 80.467 kg Weight 70.76 kg Physical Exam Narrative: Gen: alert and oriented to time place and person, sitting in mild distress on NIV, and able to interact and speak in full sentences HEENT: unremarkable exam, most mucous membranes, atraumatic, normocephalic Neck: Supple, full range of motion, no observable masses or LN Lungs: Bilateral equal air entry with diffuse moderate wheezes on both sides, some coarse crackles secondary to conduction from the phlegm possible fluid? CV: sinus rhythm with normal rate, no edema, diminished breath sounds bilaterally, tachypneic, no jVD Abdomen: Soft, nondistended, No rebound tenderness. extremities: mild trace edema Skin: No rashes, petechiae, lesions. Normal color per patient. Neuro: Psych: Appropriate for situation. Data 05/21/25 03:09 05/21/25 03:09 Micro: Microbiology 05/19/25 18:25 Blood Culture - Preliminary Blood NEGATIVE TO DATE 05/19/25 18:27 Blood Culture - Preliminary Blood NEGATIVE TO DATE A&P Assessment and plan 1. Atrial fibrillation with rapid ventricular response: 2. Coronary artery disease: 3. Acute exacerbation of chronic obstructive airways disease: 4. Peripheral arterial disease: 5. Benign essential HTN: 6. Emphysema/COPD: 7. Atherosclerotic heart disease of [place] coronary artery with other forms of angina pectoris: 8. Mixed hyperlipidemia: 9. Bilateral carotid artery stenosis without cerebral infarction: 10. Acute exacerbation of chronic obstructive pulmonary disease: 11. GERD (gastroesophageal reflux disease): 12. Hypothyroidism: Plan: AT fib: - amiodrip completed and switched to amiodarone 400mg bid, and continue on metopolol 50mg bid as per cardio plan -Echo ( last echo was done this yr 10/2024: EF: 67% ) -trop trend was not remarkable -Telemetry to continue - Monitor and correction of electrolytes specially magnesium and potassium acute COPD exacerbation: having increased sob and phlegm patient having sob, and increase in WBCs escalate abx to zosyn and repeat blood cultures blood cultures 05/19/25 till date no growth Possible atypical pneumonia, respiratory viral panel was negative ipratropium nebs and albuterol 3 times daily methylpred 40mg daily montelukast daily CAD: continue clopidogrel continue nitrates, Hold nitrates if the blood pressure systolic dropping less than 100 echo: EF 75% statins Hypothyroidism: continue home dose levothyroxine TSH normal GERD: famotidine ondansterone for nausea/vomiting HLD: continue statins HTN: hold any anti HTN at the moment VTE: apixaban 5mg bid as anticoagulation for at fib diet: cardiac diet PDMP PDMP Reviewed: Not Reviewed Attestations Medical Necessity Statement*: Cinthia Palacios's hospital stay will require greater than 2 midnights for management for atfib with RVR, acute COPD exacerbation Time Spent in Patient Care: 16 - 35 minutes (>than 50% of time spent in counselling and/or direct pt care on unit). Critical Care Time: The high probability of a clinically significant, sudden or life threatening deterioration, as referenced in this documentation, required my full and direct attention, intervention and personal management. The critical care time shown is in addition to time spent performing any reported separately billable procedures and includes the following: [x] Data and vital sign review and interpretation [x] Patient assessment, examination and intervention [x] Medication orders and management [x] Patient/Family updates as able [x] Care Coordination and Documentation. Critical Care Time (min): 35 Other Attestations: Patient condition has been discussed at length with the patient/family, I have independently reviewed the chart labs imaging and diagnostics and EKG. the goals of care and code status with the patient/family/NOK/legal member services representative, and documented accordingly. The patient/family has been informed about the current condition and further plan of care. Agreed with the plan of care and understood without any language barrier. This documentation was created by [employer] research and evaluation analyst software. Every effort was made to ensure accuracy of research and evaluation analyst. Any obvious errors or omissions should be clarified with the author of the document. Coding Level of Care Code Critical Care >/= 30 minutes Diagnoses Atrial fibrillation with rapid ventricular response I48.91 Coronary artery disease I25.10 Acute exacerbation of chronic obstructive airways disease J44.1 Peripheral arterial disease I73.9 Benign essential HTN I10 Emphysema/COPD J43.9 Atherosclerotic heart disease of [place] coronary artery with other forms of angina pectoris I25.118 Mixed hyperlipidemia E78.2 Hyperlipidemia type: mixed hyperlipidemia Bilateral carotid artery stenosis without cerebral infarction I65.23 Acute exacerbation of chronic obstructive pulmonary disease J44.1 GERD (gastroesophageal reflux disease) K21.9 Hypothyroidism E03.9
--- NOTE | 2025-05-21 13:24 | XR_ITS ---
WS: [id number] Exam: XR chest 1V portable [id number] Date/Time of Exam: 05/21/2025 1:25 PM Reason For Exam: worsening SOB Comparison 05/20/2025. Lungs are fully expanded and clear. Normal cardiomediastinal silhouette. No pleural effusion. Bony structures are intact. XR/XR chest 1V portable [id number] IMPRESSION: 1. No acute cardiopulmonary finding.
--- NOTE | 2025-05-21 16:47 | PC.NURSE ---
8215 Patient asking if she can be taken outside to smoke a ciagarett. I told her we can't and we're trying to help her breathing status, not harm it.
[2025-05-22] VITALS (45 sets, daily range): BP systolic 113–177; BP diastolic 52–88; PULSE 53–103; RESP 18–34; TEMP 36.5–37.1; O2SAT 83–98
[2025-05-22 04:14] LABS: Hematocrit 38.2 % (36-47); Hemoglobin 11.90 g/dL (11.27-16.99); Mean Corpuscular HGB Conc 31.2 g/dL (30-55); Mean Corpuscular Hemoglobin 24.8 pg (27-33); Mean Corpuscular Volume 79.7 fl (85-98); Nucleated Red Blood Cells % 0 %; Platelet Count 310 10^3/cmm (157-399); Red Blood Count 4.79 10^6/uL (3.85-5.65); White Blood Count 15.36 10^3/uL (3.29-11.43)
[2025-05-22 04:39] LABS: Alanine Aminotransferase 22 U/L (0-33); Albumin Level 3.7 g/dL (3.5-5.2); Alkaline Phosphatase 94 U/L (35-105); Anion Gap 11.2 (5-19); Aspartate Amino Transferase 21 U/L (0-32); Blood Urea Nitrogen 16 mg/dL (8-23); Calcium 9.1 mg/dL (8.5-10.5); Carbon Dioxide 31 mmol/L (22-29); Chloride 101 mmol/L (98-107); Creatinine Clr Calc Pharmacy 61.3597; Globulin 3.1 g/dL (1.3-4.6); Glucose 90 mg/dL (65-115); Osmolality Calculated 289 mOsm/kg (285-295); Potassium 4.2 mmol/L (3.5-5.1); Sodium 139 mmol/L (136-145); Total Protein 6.8 g/dL (6.6-8.7)
[2025-05-22] MEDS: ondansetron 2 mg/ML SDV 2 mL 4 MG IVP (05:51)
[2025-05-22] MEDS: guaiFENesin-dextromethorphan UDC 10 mL PO (05:51)
[2025-05-22] MEDS: methylPREDNISolone sod succ 40 mg/mL INJ IVP ×5 (08:19→22:56)
[2025-05-22] MEDS: LORazepam 1 MG/0.5 ML injection 0.5 MG IVP ×3 (09:49→20:00)
--- NOTE | 2025-05-22 10:50 | P.PN_ITS ---
<Statement entered by Shantel Wang MD - 05/23/25 20:09> Patient was evaluated and cared for in conjunction with an advanced practice practitioner. I personally examined the patient and reviewed the chart and all pertinent data including imaging, telemetry, and laboratory results. I discussed the patient in detail with the advanced practice practitioner. Please see their note for complete H&P testing result and agreed upon plan of care for the patient. Subjective 2 Subjective: Assumed care of the patient from Dr. Oscar ro. Noted she is feeling anxious when off of BiPAP, currently 30% FiO2. No chest pain. She has new onset atrial fibrillation with this admission, anticoagulated with apixaban 5 mg twice daily. Currently in sinus rhythm. Some bradycardic heart rates noted, metoprolol has been reduced to 25 mg twice daily. If she still bradycardic after the reduction of metoprolol will reduce amiodarone to 200 mg twice daily. Vitals/I&O/Wt Last Vital Signs Temp 98.3 F 05/22/25 12:00 Pulse 64 05/22/25 13:30 Resp 27 H 05/22/25 13:23 BP 122/69 05/22/25 12:00 Pulse Ox 91 05/22/25 13:23 O2 Del Method BiPAP 05/22/25 13:23 O2 Flow Rate 5 05/20/25 21:00 FiO2 30 05/22/25 13:23 05/21/25 05/22/25 05/22/25 22:59 06:59 14:59 Intake Total 240 / 720 480 / 720 Output Total 750 / 1600 Balance 240 / -880 -270 / -880 Weight last 48 hrs Weight 174 lb 4.8 oz Weight 174 lb 1 oz Weight 174 lb 1 oz Physical Exam 2 Const: COMMON NORMALS: no acute distress and patient oriented x3 GENERAL APPEARANCE: cooperative and comfortable ORIENTATION/CONSCIOUSNESS: Yes awake, Yes oriented to person, Yes oriented to place and Yes oriented to time Chest: COMMONS NORMALS: normal inspection of the chest and normal palpation of entire chest wall CHEST: Yes Symmetrical chest wall rise Resp: COMMON NORMALS: normal respiratory effort, No retractions and No use of accessory muscles EFFORT & INSPECTION: Yes symmetric chest movement A USCULTATION: other (Coarse lung sounds, tight airways) Cardio: COMMON NORMALS: regular rate, regular rhythm, S1 normal heart sound present, S2 normal heart sound present, No gallops present (Cardio), No clicks present (Cardio), No murmurs present (Cardio) and No rub (Cardio) RATE: r egular rate RHYTHM: regular rhythm HEART SOUNDS: S1 normal heart sound present and S2 normal heart sound present PERIPHERAL PULSES: radial pulses present Extremity: COMMON NORMALS: no pedal edema Neuro: COMMON NORMALS: patient oriented x3 and moves all extremities S ENSORIUM/ORIENTATION: Yes oriented to person, Yes oriented to place and Yes oriented to time Urinary Catheter Management: Mccoy: Cath Placed During This Visit: yes Reason for Continuing Indwelling Catheter: Accurate Measurement of Urinary Output in Critically Ill Patients Urinary Catheter Date of Insertion: 05/21/25 Urinary Catheter Time of Insertion: 12:50 Data 05/22/25 03:58 05/22/25 03:58 Micro: Microbiology 05/21/25 13:39 Blood Culture - Preliminary Blood Staphylococcus sp coag neg 05/21/25 13:37 Blood Culture - Preliminary Blood NEGATIVE TO DATE A&P Assessment and plan 1. Atrial fibrillation with rapid ventricular response: 2. Coronary artery disease: 3. Chronic respiratory failure with hypoxia and hypercapnia: 4. Benign essential HTN: 5. Mixed hyperlipidemia: 6. Peripheral arterial disease: Plan: Remaining in sinus rhythm. To improve bradycardia, metoprolol has been reduced. Can reduce amiodarone if bradycardia persists. Continue apixaban, Imdur, atorvastatin, Plavix. PDMP PDMP Reviewed: Not Reviewed Attestations 2 Medical Necessity Statement*: Rhythm control new onset atrial fibrillation, COPD exacerbation Coding Level of Care Code Acute Code for [facility] Diagnoses Atrial fibrillation with rapid ventricular response I48.91 Coronary artery disease I25.10 Chronic respiratory failure with hypoxia and hypercapnia J96.11; J96.12 Benign essential HTN I10 Mixed hyperlipidemia E78.2 Hyperlipidemia type: mixed hyperlipidemia Peripheral arterial disease I73.9
--- NOTE | 2025-05-22 15:19 | PC.SOCIAL ---
IMM UPDATED IMM dated and initialed copy given to patient and copy placed in chart.
--- NOTE | 2025-05-22 18:58 | P.PN_ITS ---
Subjective 2 Subjective: Continues with dyspnea and intermittent BiPAP requirement overnight and throughout the day, wheezing. Intermittent anxiety through the day. Vitals/I&O/Wt Last Vital Signs Temp 98.3 F 05/22/25 16:00 Pulse 69 05/22/25 18:06 Resp 22 H 05/22/25 18:00 BP 127/63 05/22/25 18:00 Pulse Ox 94 05/22/25 18:06 O2 Del Method BiPAP 05/22/25 15:54 O2 Flow Rate 5 05/20/25 21:00 FiO2 30 05/22/25 18:06 05/22/25 05/22/25 05/22/25 06:59 14:59 22:59 Intake Total 480 / 720 Output Total 750 / 1600 Balance -270 / -880 Weight last 48 hrs Weight 79.061 kg Weight 78.953 kg Weight 78.953 kg Physical Exam 2 Const: COMMON NORMALS: patient oriented x3 and alert GENERAL APPEARANCE: c ooperative ORIENTATION/CONSCIOUSNESS: Yes awake HENMT: COMMON NORMALS: oropharynx normal Neck/C-Spine: COMMON NORMALS: no JVD Resp: OTHER: Diminished air entry, wheezing Cardio: COMMON NORMALS: no JVD, regular rhythm, S1 normal heart sound present, S2 normal heart sound present and No murmurs present (Cardio) RHYTHM: regular rhythm HEART SOUNDS: S1 normal heart sound present and S2 normal heart sound present GI: COMMON NORMALS: Normal to inspection, nondistended, normoactive bowel sounds present, Soft to palpation and non-tender PALPATION: Yes Soft to palpation Extremity: COMMON NORMALS: no joint enlargement and no pedal edema Neuro: COMMON NORMALS: patient oriented x3 and moves all extremities S ENSORIUM/ORIENTATION: Yes alert Skin: COMMON NORMALS: no rashes or lesions noted GENERAL SKIN EXAM: no rashes or lesions noted Urinary Catheter Management: Mccoy: Cath Placed During This Visit: yes Reason for Continuing Indwelling Catheter: Accurate Measurement of Urinary Output in Critically Ill Patients Urinary Catheter Date of Insertion: 05/21/25 Urinary Catheter Time of Insertion: 12:50 Data 05/22/25 03:58 05/22/25 03:58 Micro: Microbiology 05/21/25 13:39 Blood Culture - Preliminary Blood Staphylococcus sp coag neg 05/21/25 13:37 Blood Culture - Preliminary Blood NEGATIVE TO DATE A&P Assessment and plan 1. Atrial fibrillation with rapid ventricular response: 2. Coronary artery disease: 3. Acute exacerbation of chronic obstructive airways disease: 4. Peripheral arterial disease: 5. Benign essential HTN: 6. Emphysema/COPD: 7. Atherosclerotic heart disease of [place] coronary artery with other forms of angina pectoris: 8. Mixed hyperlipidemia: 9. Bilateral carotid artery stenosis without cerebral infarction: 10. Acute exacerbation of chronic obstructive pulmonary disease: 11. GERD (gastroesophageal reflux disease): 12. Hypothyroidism: Plan: acute COPD exacerbation: With acute respiratory failure with hypoxia, requiring intermittent BiPAP support throughout today, significant bronchospasm with diminished air entry, wheezing. At increased risk of respiratory failure progression, respiratory distress, continue assessment management in ICU. Continue treatment of severe exacerbation of COPD. Adjust Solu-Medrol 40 mg IV to every 4 hours. Every 4 hours nebs. Monitor for risk of hypertension, hyperglycemia, gastritis, encephalopathy with IV steroids. Obtain sputum culture. Add empiric antibiotic coverage with ceftriaxone. Reviewed vitals, CBC, CMP, blood culture. Discussed with nursing, block and case maker. montelukast daily AT fib: Reviewed vitals, heart rates are now well-controlled. - amiodrip completed and switched to amiodarone 400mg bid, and continue on metopolol 50mg bid as per cardio plan -Echo ( last echo was done this yr 10/2024: EF: 67% ) -trop trend was not remarkable -Telemetry to continue - Monitor and correction of electrolytes specially magnesium and potassium CAD: continue clopidogrel continue nitrates, Hold nitrates if the blood pressure systolic dropping less than 100 echo: EF 75% statins Hypothyroidism: continue home dose levothyroxine TSH normal GERD: famotidine ondansterone for nausea/vomiting HLD: continue statins HTN: hold any anti HTN at the moment VTE: apixaban 5mg bid as anticoagulation for at fib diet: cardiac diet PDMP PDMP Reviewed: Not Reviewed Attestations 2 Medical Necessity Statement*: Continue admission for assessment and management of acute respiratory failure, severe exacerbation of COPD. Diagnoses Atrial fibrillation with rapid ventricular response I48.91 Coronary artery disease I25.10 Acute exacerbation of chronic obstructive airways disease J44.1 Peripheral arterial disease I73.9 Benign essential HTN I10 Emphysema/COPD J43.9 Atherosclerotic heart disease of [place] coronary artery with other forms of angina pectoris I25.118 Mixed hyperlipidemia E78.2 Hyperlipidemia type: mixed hyperlipidemia Bilateral carotid artery stenosis without cerebral infarction I65.23 Acute exacerbation of chronic obstructive pulmonary disease J44.1 GERD (gastroesophageal reflux disease) K21.9 Hypothyroidism E03.9
[2025-05-22] MEDS: cefTRIAXone 1,000 mg SDV 1000 MG IVP (20:01)
[2025-05-23] VITALS (38 sets, daily range): BP systolic 116–158; BP diastolic 52–81; PULSE 56–92; RESP 16–30; TEMP 36.4–36.9; O2SAT 90–97
[2025-05-23 04:12] LABS: Hematocrit 37.1 % (36-47); Hemoglobin 11.50 g/dL (11.27-16.99); Mean Corpuscular HGB Conc 31.0 g/dL (30-55); Mean Corpuscular Hemoglobin 25.2 pg (27-33); Mean Corpuscular Volume 81.4 fl (85-98); Nucleated Red Blood Cells % 0 %; Platelet Count 276 10^3/cmm (157-399); Red Blood Count 4.56 10^6/uL (3.85-5.65); White Blood Count 9.79 10^3/uL (3.29-11.43)
[2025-05-23] MEDS: methylPREDNISolone sod succ 40 mg/mL INJ IVP ×4 (04:13→16:48)
[2025-05-23] MEDS: LORazepam 1 MG/0.5 ML injection 0.5 MG IVP ×2 (04:13→07:45)
[2025-05-23 06:41] LABS: Anion Gap 15.0 (5-19); Blood Urea Nitrogen 24 mg/dL (8-23); Calcium 9.2 mg/dL (8.5-10.5); Carbon Dioxide 29 mmol/L (22-29); Chloride 95 mmol/L (98-107); Creatinine Clr Calc Pharmacy 53.7263; Glucose 185 mg/dL (65-115); Osmolality Calculated 289 mOsm/kg (285-295); Potassium 4.0 mmol/L (3.5-5.1); Sodium 135 mmol/L (136-145)
--- NOTE | 2025-05-23 09:12 | P.PN_ITS ---
<Statement entered by Shantel Wang MD - 05/23/25 20:06> Patient was evaluated and cared for in conjunction with an advanced practice practitioner. I personally examined the patient and reviewed the chart and all pertinent data including imaging, telemetry, and laboratory results. I discussed the patient in detail with the advanced practice practitioner. Please see their note for complete H&P testing result and agreed upon plan of care for the patient. Subjective 2 Subjective: No events overnight. She is off BiPAP for eating breakfast, no significant shortness of breath. She still feels some chest congestion, like being unable to cough up secretions. Breath sounds are wheezy. She remains in sinus rhythm with good heart rate control. Vitals/I&O/Wt Last Vital Signs Temp 98.5 F 05/23/25 04:00 Pulse 82 05/23/25 08:00 Resp 29 H 05/23/25 08:00 BP 138/65 05/23/25 08:00 Pulse Ox 94 05/23/25 08:00 O2 Del Method BiPAP 05/23/25 07:36 O2 Flow Rate 3 05/23/25 05:00 FiO2 35 05/23/25 07:36 05/22/25 05/23/25 05/23/25 22:59 06:59 14:59 Intake Total 480 / 720 240 / 720 Output Total 375 / 375 Balance 480 / 345 -135 / 345 Weight last 48 hrs Weight 169 lb 1.513 oz Weight 169 lb 1.513 oz Weight 174 lb 4.8 oz Physical Exam 2 Const: COMMON NORMALS: no acute distress and patient oriented x3 GENERAL APPEARANCE: cooperative and comfortable ORIENTATION/CONSCIOUSNESS: Yes awake, Yes oriented to person, Yes oriented to place and Yes oriented to time Chest: COMMONS NORMALS: normal inspection of the chest and normal palpation of entire chest wall CHEST: Yes Symmetrical chest wall rise Resp: COMMON NORMALS: normal respiratory effort, No retractions and No use of accessory muscles EFFORT & INSPECTION: Yes symmetric chest movement and Yes prolonged expiratory phase AUSCULTATION: wheezes Cardio: COMMON NORMALS: regular rate, regular rhythm, S1 normal heart sound present, S2 normal heart sound present, No gallops present (Cardio), No clicks present (Cardio), No murmurs present (Cardio) and No rub (Cardio) RATE: r egular rate RHYTHM: regular rhythm HEART SOUNDS: S1 normal heart sound present and S2 normal heart sound present PERIPHERAL PULSES: radial pulses present Extremity: COMMON NORMALS: no pedal edema Neuro: COMMON NORMALS: patient oriented x3 and moves all extremities S ENSORIUM/ORIENTATION: Yes oriented to person, Yes oriented to place and Yes oriented to time Urinary Catheter Management: Mccoy: Cath Placed During This Visit: yes Reason for Continuing Indwelling Catheter: Accurate Measurement of Urinary Output in Critically Ill Patients Urinary Catheter Date of Insertion: 05/21/25 Urinary Catheter Time of Insertion: 12:50 Data 05/23/25 03:36 05/23/25 06:12 Micro: Microbiology 05/21/25 13:39 Blood Culture - Preliminary Blood Staphylococcus sp coag neg 05/21/25 13:37 Blood Culture - Preliminary Blood NEGATIVE TO DATE A&P Assessment and plan 1. Coronary artery disease: 2. Atrial fibrillation with rapid ventricular response: 3. Chronic respiratory failure with hypoxia and hypercapnia: 4. Benign essential HTN: 5. Mixed hyperlipidemia: 6. Peripheral arterial disease: Plan: Stable from a cardiovascular perspective, bradycardia improved with reduction of metoprolol to 25 twice daily. Continue apixaban, Imdur, amiodarone, Plavix, atorvastatin. PDMP PDMP Reviewed: Not Reviewed Attestations 2 Medical Necessity Statement*: COPD exacerbation Coding Level of Care Code Acute Code for [facility] Diagnoses Coronary artery disease I25.10 Atrial fibrillation with rapid ventricular response I48.91 Chronic respiratory failure with hypoxia and hypercapnia J96.11; J96.12 Benign essential HTN I10 Mixed hyperlipidemia E78.2 Hyperlipidemia type: mixed hyperlipidemia Peripheral arterial disease I73.9
[2025-05-23] MEDS: FUROsemide 10 mg/mL SDV 4mL 40 MG IVP (09:22)
--- NOTE | 2025-05-23 16:44 | P.PN_ITS ---
Subjective 2 Subjective: Patient was seen in the morning currently off BiPAP and on 3 to 4 L nasal cannula oxygen No shortness of breath and able to speak in full sentences Feeling much better Heart rate controlled. Medications: Medication Review Details: Current Medications Acetaminophen (Acetaminophen 325 Mg Tablet) 650 mg PO Q6H PRN PRN Reason: MILD PAIN Last Admin: 05/20/25 21:35 Dose: 650 mg Albuterol Sulfate (Albuterol 2.5 Mg/0.5 Ml Neb) 2.5 mg INHALATION TID.RESP MICA Last Admin: 05/21/25 07:53 Dose: 2.5 mg Amiodarone HCl (Amiodarone 200 Mg Tablet) 400 mg PO BID MICA Last Admin: 05/21/25 02:26 Dose: 400 mg Apixaban (Apixaban 5 Mg Tablet) 5 mg PO BID@0900,2100 MICA Last Admin: 05/20/25 20:05 Dose: 5 mg Atorvastatin Calcium (Atorvastatin 40 Mg Tablet) 80 mg PO BEDTIME MICA Last Admin: 05/20/25 20:05 Dose: 80 mg Benzonatate (Benzonatate 100 Mg Capsule) 200 mg PO TID PRN PRN Reason: COUGH Last Admin: 05/20/25 15:44 Dose: 200 mg Ceftriaxone Sodium (Ceftriaxone 1,000 Mg Sdv) 1,000 mg IVP Q24H MICA; Protocol Last Admin: 05/20/25 18:51 Dose: 1,000 mg Clopidogrel Bisulfate (Clopidogrel 75 Mg Tablet) 75 mg PO DAILY MICA Last Admin: 05/20/25 08:20 Dose: 75 mg Famotidine (Famotidine 20 Mg/2 Ml Inj) 20 mg IVP Q12H MICA Last Admin: 05/20/25 21:35 Dose: 20 mg Guaifenesin/Dextromethorphan (Guaifenesin-Dextromethorphan Udc 10 Ml) 10 ml PO Q4H PRN PRN Reason: COUGH Azithromycin 500 mg/ Sodium (Chloride) 250 mls @ 250 mls/hr IV Q24H MICA; Protocol Last Infusion: 05/20/25 20:09 Dose: Infused Amiodarone HCl/Dextrose (Nexterone) 360 mg in 200 mls @ 0 mls/hr IV .Q0M [facility]; Protocol Last Titration: 05/21/25 05:01 Dose: Infused Ipratropium [place] (Ipratropium 0.5 Mg/2.5 Ml Neb) 0.5 mg INHALATION Q4H.RESPIRATORY PRN PRN Reason: SHORTNESS OF BREATH Last Admin: 05/21/25 07:53 Dose: 0.5 mg Isosorbide Mononitrate (Isosorbide Mononitrate Er 30 Mg Tablet) 30 mg PO DAILY [facility] Levothyroxine Sodium (Levothyroxine 50 Mcg Tablet) 50 mcg PO DAILY@0600 [facility] Last Admin: 05/21/25 05:39 Dose: 50 mcg Lorazepam (Lorazepam 0.5 Mg Tablet) 0.5 mg PO Q4H PRN PRN Reason: restlessness/anxiety Last Admin: 05/21/25 04:22 Dose: 0.5 mg Methylprednisolone Sodium Succinate (Methylprednisolone Sod Succ 40 Mg/Ml Inj) 40 mg IVP DAILY [facility] Last Admin: 05/20/25 08:20 Dose: 40 mg Metoprolol Tartrate (Metoprolol Tartrate 50 Mg Tablet) 50 mg PO BID@0900,2100 [facility] Last Admin: 05/20/25 20:05 Dose: 50 mg Montelukast Sodium (Montelukast Sodium 10 Mg Tablet) 10 mg PO DAILY [facility] Last Admin: 05/20/25 08:20 Dose: 10 mg Ondansetron HCl (Ondansetron 2 Mg/Ml Sdv 2 Ml) 4 mg IVP Q6H PRN PRN Reason: NAUSEA AND VOMITING Last Admin: 05/21/25 01:57 Dose: 4 mg Senna (Sennosides 8.6 Mg Tablet) 17.2 mg PO BEDTIME [facility] Last Admin: 05/20/25 20:05 Dose: 17.2 mg Vitals/I&O/Wt Last Vital Signs Temp 98.5 F 05/23/25 04:00 Pulse 74 05/23/25 15:10 Resp 20 H 05/23/25 15:03 BP 155/77 05/23/25 12:00 Pulse Ox 93 05/23/25 15:03 O2 Del Method Nasal Cannula 05/23/25 15:03 O2 Flow Rate 5 05/23/25 15:03 FiO2 35 05/23/25 07:36 05/23/25 05/23/25 05/23/25 06:59 14:59 22:59 Intake Total 240 / 720 240 / 240 Output Total 375 / 375 525 / 525 Balance -135 / 345 -285 / -285 Weight last 48 hrs Weight 76.7 kg Weight 76.7 kg Weight 79.061 kg Physical Exam 2 Narrative: Gen: alert and oriented to time place and person, lying comfortably on 3-4 nasal cannula oxygen supplementation and able to interact and speak in full sentences HEENT: unremarkable exam, most mucous membranes, atraumatic, normocephalic Neck: Supple, full range of motion, no observable masses or LN Lungs: Bilateral equal air entry without any wheezes or crackles, and no other added sounds CV: sinus rhythm with normal rate, no edema, diminished breath sounds bilaterally, tachypneic, no jVD Abdomen: Soft, nondistended, No rebound tenderness. extremities: mild trace edema Skin: No rashes, petechiae, lesions. Normal color per patient. Neuro: Psych: Appropriate for situation. Urinary Catheter Management: Mccoy: Cath Placed During This Visit: yes Reason for Continuing Indwelling Catheter: Accurate Measurement of Urinary Output in Critically Ill Patients Urinary Catheter Date of Insertion: 05/21/25 Urinary Catheter Time of Insertion: 12:50 Data 05/23/25 03:36 05/23/25 06:12 Micro: Microbiology 05/21/25 13:39 Blood Culture - Preliminary Blood Staphylococcus sp coag neg 05/21/25 13:37 Blood Culture - Preliminary Blood NEGATIVE TO DATE A&P Assessment and plan 1. Atrial fibrillation with rapid ventricular response: 2. Coronary artery disease: 3. Acute exacerbation of chronic obstructive airways disease: 4. Peripheral arterial disease: 5. Benign essential HTN: 6. Emphysema/COPD: 7. Atherosclerotic heart disease of [place] coronary artery with other forms of angina pectoris: 8. Mixed hyperlipidemia: 9. Bilateral carotid artery stenosis without cerebral infarction: 10. Acute exacerbation of chronic obstructive pulmonary disease: 11. GERD (gastroesophageal reflux disease): 12. Hypothyroidism: Plan: acute COPD exacerbation: With acute respiratory failure with hypoxia, requiring intermittent BiPAP support during hospital stay significant bronchospasm with diminished air entry, wheezing. At increased risk of respiratory failure progression, respiratory distress, continue assessment management in ICU. Continue ceftriaxone 1 g daily Continue Methylpred 40 mg daily Blood culture showed Staphylococcus species coagulase-negative. Follow the final Continue montelukast Antitussive as needed AT fib: Reviewed vitals, heart rates are now well-controlled. - Initial amiodrip completed and switched to amiodarone 400mg bid, and continue on metopolol 50mg bid as per cardio plan -Echo ( last echo was done this yr 10/2024: EF: 67% ) -trop trend was not remarkable -Telemetry to continue - Monitor and correction of electrolytes specially magnesium and potassium CAD: continue clopidogrel continue nitrates, Hold nitrates if the blood pressure systolic dropping less than 100 echo: EF 75% statins Hypothyroidism: continue home dose levothyroxine TSH normal GERD: famotidine ondansterone for nausea/vomiting HLD: continue statins HTN: hold any anti HTN at the moment VTE: apixaban 5mg bid as anticoagulation for at fib diet: cardiac diet Disposition: Home PDMP PDMP Reviewed: Not Reviewed Attestations 2 Medical Necessity Statement*: Patient was seen last time 1 midnight for the management of acute COPD exacerbation, atrial fibrillation with RVR and sepsis secondary to possible pneumonia currently Time Spent in Patient Care: 16 - 35 minutes (>than 50% of time sp ent in counselling and/or direct pt care on unit) . Critical Care Time: The high probability of a clinically significant, sudden or life threatening deterioration, as referenced in this documentation, required my full and direct attention, intervention and personal management. The critical care time shown is in addition to time spent performing any reported separately billable procedures and includes the following: [x] Data and vital sign review and interpretation [x ] Patient assessment, examination and intervention [x] Medication orders and management [x] Patient/Family updates as able [x] Care Coordination and Documentation. Other Attestations: Patient condition has been discussed at length with the patient/family, I have independently reviewed the chart labs imaging and diagnostics and EKG. the goals of care and code status with the patient/family/NOK/legal care support representative, and documented accordingly. The patient/family has been informed about the current condition and further plan of care. Agreed with the plan of care and understood without any language barrier. This documentation was created by [employer] rides attendant software. Every effort was made to ensure accuracy of rides attendant. Any obvious errors or omissions should be clarified with the author of the document. Coding Level of Care Code Critical Care >/= 30 minutes Diagnoses Atrial fibrillation with rapid ventricular response I48.91 Coronary artery disease I25.10 Acute exacerbation of chronic obstructive airways disease J44.1 Peripheral arterial disease I73.9 Benign essential HTN I10 Emphysema/COPD J43.9 Atherosclerotic heart disease of [place] coronary artery with other forms of angina pectoris I25.118 Mixed hyperlipidemia E78.2 Hyperlipidemia type: mixed hyperlipidemia Bilateral carotid artery stenosis without cerebral infarction I65.23 Acute exacerbation of chronic obstructive pulmonary disease J44.1 GERD (gastroesophageal reflux disease) K21.9 Hypothyroidism E03.9
--- NOTE | 2025-05-23 18:10 | PC.NURSE ---
severely anxious and scared, wants someone with her at most times , talking about going home to see her little dog and be able to sit on her front porch, related that she was on hospice and return to hospice when discharge but also talking about how she wants all treatment done to help her. talked with pt and son pertaining to hospice or rehab
[2025-05-23] MEDS: cefTRIAXone 1,000 mg SDV 1000 MG IVP (20:24)
[2025-05-24] VITALS (21 sets, daily range): BP systolic 122–167; BP diastolic 60–78; PULSE 55–72; RESP 10–30; TEMP 36.3–36.4; O2SAT 88–96
[2025-05-24] MEDS: guaiFENesin-dextromethorphan UDC 10 mL PO (01:20)
[2025-05-24 04:17] LABS: Hematocrit 37.8 % (36-47); Hemoglobin 12.10 g/dL (11.27-16.99); Mean Corpuscular HGB Conc 32.0 g/dL (30-55); Mean Corpuscular Hemoglobin 25.3 pg (27-33); Mean Corpuscular Volume 78.9 fl (85-98); Nucleated Red Blood Cells % 0 %; Platelet Count 341 10^3/cmm (157-399); Red Blood Count 4.79 10^6/uL (3.85-5.65); White Blood Count 17.02 10^3/uL (3.29-11.43)
[2025-05-24 04:48] LABS: Alanine Aminotransferase 24 U/L (0-33); Albumin Level 3.7 g/dL (3.5-5.2); Alkaline Phosphatase 94 U/L (35-105); Anion Gap 13.1 (5-19); Aspartate Amino Transferase 18 U/L (0-32); Blood Urea Nitrogen 27 mg/dL (8-23); Calcium 9.6 mg/dL (8.5-10.5); Carbon Dioxide 32 mmol/L (22-29); Chloride 98 mmol/L (98-107); Creatinine Clr Calc Pharmacy 53.7263; Globulin 3.1 g/dL (1.3-4.6); Glucose 151 mg/dL (65-115); Osmolality Calculated 296 mOsm/kg (285-295); Potassium 4.1 mmol/L (3.5-5.1); Sodium 139 mmol/L (136-145); Total Protein 6.8 g/dL (6.6-8.7)
[2025-05-24] MEDS: methylPREDNISolone sod succ 40 mg/mL INJ IVP (08:21)
[2025-05-24] MEDS: FUROsemide 10 mg/mL SDV 4mL 40 MG IVP (08:21)
--- NOTE | 2025-05-24 10:10 | P.PN_ITS ---
<Statement entered by Shantel Wang MD - 05/24/25 18:58> Patient was evaluated and cared for in conjunction with an advanced practice practitioner. I personally have not examined the patient and reviewed the chart and all pertinent data including imaging, telemetry, and laboratory results. I discussed the patient in detail with the advanced practice practitioner. Please see their note for complete H&P testing result and agreed upon plan of care for the patient. Subjective 2 Subjective: She has done well overnight, off BiPAP and breathing comfortably this morning. She is still quite wheezy. No chest pain, she remains in sinus rhythm. Vitals/I&O/Wt Last Vital Signs Temp 97.5 F L 05/24/25 04:00 Pulse 57 L 05/24/25 08:00 Resp 22 H 05/24/25 08:00 BP 153/65 05/24/25 08:00 Pulse Ox 95 05/24/25 08:00 O2 Del Method BiPAP 05/24/25 07:55 O2 Flow Rate 5 05/24/25 02:00 FiO2 40 05/24/25 07:55 05/23/25 05/24/25 05/24/25 22:59 06:59 14:59 Intake Total 480 / 960 240 / 960 Output Total 1500 / 2525 500 / 2525 Balance -1020 / -1565 -260 / -1565 Weight last 48 hrs Weight 165 lb 9.074 oz Weight 165 lb 9.074 oz Weight 169 lb 1.513 oz Weight 169 lb 1.513 oz Physical Exam 2 Const: COMMON NORMALS: no acute distress and patient oriented x3 GENERAL APPEARANCE: cooperative and comfortable ORIENTATION/CONSCIOUSNESS: Yes awake, Yes oriented to person, Yes oriented to place and Yes oriented to time Chest: COMMONS NORMALS: normal inspection of the chest and normal palpation of entire chest wall CHEST: Yes Symmetrical chest wall rise Resp: COMMON NORMALS: normal respiratory effort, No retractions and No use of accessory muscles EFFORT & INSPECTION: Yes symmetric chest movement A USCULTATION: wheezes throughout Cardio: COMMON NORMALS: regular rate, regular rhythm, S1 normal heart sound present, S2 normal heart sound present, No gallops present (Cardio), No clicks present (Cardio), No murmurs present (Cardio) and No rub (Cardio) RATE: r egular rate RHYTHM: regular rhythm HEART SOUNDS: S1 normal heart sound present and S2 normal heart sound present PERIPHERAL PULSES: radial pulses present Extremity: COMMON NORMALS: no pedal edema Neuro: COMMON NORMALS: patient oriented x3 and moves all extremities S ENSORIUM/ORIENTATION: Yes oriented to person, Yes oriented to place and Yes oriented to time Urinary Catheter Management: Mccoy: Cath Placed During This Visit: yes Reason for Continuing Indwelling Catheter: Accurate Measurement of Urinary Output in Critically Ill Patients Urinary Catheter Date of Insertion: 05/21/25 Urinary Catheter Time of Insertion: 12:50 Data 05/24/25 03:20 05/24/25 03:20 A&P Assessment and plan 1. Coronary artery disease: 2. Atrial fibrillation with rapid ventricular response: 3. Chronic respiratory failure with hypoxia and hypercapnia: 4. Benign essential HTN: 5. Mixed hyperlipidemia: 6. Peripheral arterial disease: Plan: She has been in sinus rhythm with no significant bradycardia. She can discharge home when okay with hospitalist service. Recommend amiodarone taper, currently at 400 mg twice daily. Continue metoprolol tartrate 25 mg twice a day, Imdur 30 mg daily, Plavix, Eliquis 5 mg twice daily. Echocardiogram shows normal LVEF, she may not require daily Lasix, but can use as needed. PDMP PDMP Reviewed: Not Reviewed Attestations 2 Medical Necessity Statement*: possible discharge home. Coding Level of Care Code Acute Code for [facility] Diagnoses Coronary artery disease I25.10 Atrial fibrillation with rapid ventricular response I48.91 Chronic respiratory failure with hypoxia and hypercapnia J96.11; J96.12 Benign essential HTN I10 Mixed hyperlipidemia E78.2 Hyperlipidemia type: mixed hyperlipidemia Peripheral arterial disease I73.9
--- NOTE | 2025-05-24 12:49 | PM.DCS ---
Discharge Providers Date of Admission: 05/19/25 17:26 Date of Discharge: May 24, 2025 Attending Provider at Admission: Judy Pineda MD Attending Provider at Discharge: Judy Pineda MD Primary Care Provider: Katie Dobbs Diagnoses at Discharge Discharge Diagnosis 1. Coronary artery disease: 2. Atrial fibrillation with rapid ventricular response: 3. Chronic respiratory failure with hypoxia and hypercapnia: 4. Benign essential HTN: 5. Mixed hyperlipidemia: 6. Peripheral arterial disease: Reason for Visit Reason for Visit: low bp(home health nurse sent) Brief History: as per the patient and the previous notes: Cinthia Palacios is a 70 year old female came with onset of dizziness, palpitations, lightheadedness, and left lower extremity tingling. She states that this happened around 10 to 11 AM this morning. She also notes that she felt her blood pressure was lower than usual but does not know specific measurements. Attempted to take a nap to improve her symptoms but they did not improve so she presented to the emergency department for further evaluation. Patient is well-known to the emergency department for frequent COPD exacerbations. She is on 5 L at home and reported having more sob associated with phlegm whitish in color. no history of recent travel, vaccinations or any sick contact; there was light headedness with palpitations and chest pressure, but no diaphoresis, syncope or any presyncope. no diarrhea, nausea or vomiting or any rash. no orthopnea or pnd. no LLE swellings. she is compliant to her medications and reported she is having easy bruising on and off. takes clopidogrel for her at fib and on metoprolol. most of the times her at fib is uncontrolled and following with the cardio here Hospital Course Hospital Course Patient admitted in the hospital as a case of acute COPD exacerbation and atrial fibrillation with RVR. The patient was having increased shortness of breath productive cough with whitish-yellowish sputum. Blood cultures and sputum cultures were sent accordingly for any infective source. And one of the bottles grew staph coagulase that was likely contaminant. The patient improved during her hospital stay. She was found to have new onset atrial fibrillation and was kept on amiodarone drip. The patient converted to sinus and seen by the environmental field team member. After controlling her heart rate and rhythm she was prescribed amiodarone as oral medication and to be continued metoprolol. The patient had echocardiographic that did not show any regional wall motion abnormalities or signs of acute [place]. The patient renal functions and electrolytes were monitored and corrected accordingly. She was kept on steroids and antibiotics for managing COPD exacerbation. She required oxygen during her hospital stay and BiPAP was kept at night. She did not deteriorate further She had home oxygen and BiPAP which was confirmed before discharge. Rest of her comorbidities including peripheral artery disease, coronary artery disease, hypothyroidism, hyperlipidemia hypertension and GERD were managed with her home medications continuation. Patient to be discharged as per cardiology recommendations and with an oral antibiotics with steroids as per guideline duration The patient was informed about the discharge plan, and all the risk and benefits with all the questions and concerns were addressed accordingly without language barrier. The patient agreed with the plan of care. Follow-up with cardiology was provided after confirming in 2 weeks. Patient condition has been discussed at length with the patient/family, I have independently reviewed the chart labs imaging and diagnostics and EKG. the goals of care and code status with the patient/family/NOK/legal charter representative, and documented accordingly. The patient/family has been informed about the current condition and further plan of care. Agreed with the plan of care and understood without any language barrier. This documentation was created by [employer] supervisor screen making software. Every effort was made to ensure accuracy of supervisor screen making. Any obvious errors or omissions should be clarified with the author of the document. Physical Exam Narrative: Gen: alert and oriented to time place and person, lying comfortably on 3-4 nasal cannula oxygen supplementation and able to interact and speak in full sentences HEENT: unremarkable exam, most mucous membranes, atraumatic, normocephalic Neck: Supple, full range of motion, no observable masses or LN Lungs: Bilateral equal air entry without any wheezes or crackles, and no other added sounds CV: sinus rhythm with normal rate, no edema, diminished breath sounds bilaterally, tachypneic, no jVD Abdomen: Soft, nondistended, No rebound tenderness. extremities: mild trace edema Skin: No rashes, petechiae, lesions. Normal color per patient. Neuro: Psych: Appropriate for situation. Urinary Catheter Management: Mccoy: Cath Placed During This Visit: yes Reason for Continuing Indwelling Catheter: Accurate Measurement of Urinary Output in Critically Ill Patients Urinary Catheter Date of Insertion: 05/21/25 Urinary Catheter Time of Insertion: 12:50 Discharge Data Studies Completed and Pending Completed Studies During Hospitalization Category Date Time Status XR chest 1V portable [id number] Stat Exams 05/19/25 15:54 Completed XR chest 1V portable [id number] Stat Exams 05/20/25 19:24 Completed XR chest 1V portable [id number] Stat Exams 05/21/25 13:24 [place] [id number] Routine Ultrasound 05/20/25 20:41 Completed CV. echo complete* [id number] Routine Ultrasound 05/20/25 20:11 Completed Pending at discharge Category Date Time Status Blood Culture Stat Lab 05/19/25 18:25 Results Blood Culture Stat Lab 05/21/25 13:39 Results Sputum Culture and Gram Stain Routine Lab 05/22/25 19:00 Uncollected Radiology Impressions Chest X-Ray 05/21/25 13:24 IMPRESSION: 1. No acute cardiopulmonary finding. Laboratory Results WBC 17.02 10^3/uL (3.29-11.43) H 05/24/25 03:20 Corrected WBC Cancelled 05/19/25 16:13 RBC 4.79 10^6/uL (3.85-5.65) 05/24/25 03:20 Hgb 12.10 g/dL (11.27-16.99) 05/24/25 03:20 Hct 37.8 % (36-47) 05/24/25 03:20 MCV 78.9 fl (85-98) L 05/24/25 03:20 MCH 25.3 pg (27-33) L 05/24/25 03:20 MCHC 32.0 g/dL (30-55) 05/24/25 03:20 RDW 15.6 % (12.1-15.1) H 05/24/25 03:20 Plt Count 341 10^3/cmm (157-399) 05/24/25 03:20 MPV 10.4 fL (7.4-10.4) 05/24/25 03:20 Gran % Cancelled 05/19/25 16:13 Neut % (Auto) 88.4 % 05/24/25 03:20 Lymph % (Auto) 5.8 % 05/24/25 03:20 [place] % (Auto) 4.8 % 05/24/25 03:20 Eos % (Auto) 0.0 % 05/24/25 03:20 Baso % (Auto) 0.1 % 05/24/25 03:20 Neut # (Auto) 15.05 10^3/uL (1.8-7.7) H 05/24/25 03:20 Lymph # (Auto) 1.0 10^3/uL (0.8-4.8) 05/24/25 03:20 [place] # (Auto) 0.8 10^3/uL (0.2-0.9) 05/24/25 03:20 Eos # (Auto) 0.0 10^3/uL (0.0-0.8) 05/24/25 03:20 Baso # (Auto) 0.0 10^3/uL (0.0-0.1) 05/24/25 03:20 Absolute Gran (auto) Cancelled 05/19/25 16:13 Nucleated RBC % (auto) 0 % 05/24/25 03:20 Nucleated RBCs # 0.0 /100WBC 05/24/25 03:20 D-Dimer 0.39 ug/mLFEU (0-0.59) 05/19/25 16:28 Specimen Type Arterial 05/21/25 09:48 Sample Site Radial, right 05/21/25 09:48 ABG pH 7.33 (7.35-7.45) L 05/21/25 09:48 ABG pCO2 57.4 mmHg (35-45) H 05/21/25 09:48 ABG pO2 82.2 mmHg (80.0-100.0) 05/21/25 09:48 ABG PO2/FiO2 Ratio 205 05/21/25 09:48 ABG HCO3 30.3 mmol/L (22-26) H 05/21/25 09:48 ABG O2 Saturation 96.6 05/21/25 09:48 ABG Base Excess 3.1 mmol/L (-2.0-2.0) H 05/21/25 09:48 Virgilio Test Pos 05/21/25 09:48 A-a O2 Gradient 17.7 mmHg (5-10) H 05/21/25 09:48 Hematocrit 38.1 % (37-47) 05/21/25 09:48 Hgb O2 Saturation 95.9 % (95-100) 05/21/25 09:48 Carboxyhemoglobin 0.6 %THgb (0.4-20.1) 05/21/25 09:48 Methemoglobin 0.2 % (0.4-1.5) L 05/21/25 09:48 Total Hemoglobin 12.4 g/dL (12-16) 05/21/25 09:48 Sodium 140.0 mmol/L (131-143) 05/21/25 09:48 Potassium 4.1 mmol/L (3.5-5.0) 05/21/25 09:48 Glucose 99.0 mg/dL (70-115) 05/21/25 09:48 Ionized Calcium 1.3 mmol/L (1.1-1.4) 05/21/25 09:48 O2 Delivery Device Bipap 05/21/25 09:48 FiO2 40.0 % 05/21/25 09:48 Seal Delivery Vehicle Team Technician ID Gd 05/21/25 09:48 Sodium 139 mmol/L (136-145) 05/24/25 03:20 Potassium 4.1 mmol/L (3.5-5.1) 05/24/25 03:20 Chloride 98 mmol/L (98-107) 05/24/25 03:20 Carbon Dioxide 32 mmol/L (22-29) H 05/24/25 03:20 Anion Gap 13.1 (5-19) 05/24/25 03:20 BUN 27 mg/dL (8-23) H 05/24/25 03:20 Creatinine 0.9 mg/dL (0.5-0.9) 05/24/25 03:20 GFR Calculation Not Reportable 05/24/25 03:20 Glucose 151 mg/dL (65-115) H 05/24/25 03:20 Calculated Osmolality 296 mOsm/kg (285-295) H 05/24/25 03:20 Calcium 9.6 mg/dL (8.5-10.5) 05/24/25 03:20 Magnesium 2.2 mg/dL (1.7-2.3) 05/19/25 16:28 Total Bilirubin 0.2 mg/dL (0.15-1.2) 05/24/25 03:20 AST 18 U/L (0-32) 05/24/25 03:20 ALT 24 U/L (0-33) 05/24/25 03:20 Alkaline Phosphatase 94 U/L (35-105) 05/24/25 03:20 Troponin T Baseline 12 ng/L (0-10) H 05/19/25 19:28 Troponin T 120 Minute 12.15 ng/L (0-10) H 05/19/25 21:38 Delta Troponin T 0.15 ABS# (0-10) 05/19/25 21:38 Troponin T Hi Sens 6Hr 11.58 ng/L (0-10) H 05/20/25 01:18 Troponin T Hi Sens 6Hr Delta -0.42 ng/L (0-12) L 05/20/25 01:18 Total Protein 6.8 g/dL (6.6-8.7) 05/24/25 03:20 Albumin 3.7 g/dL (3.5-5.2) 05/24/25 03:20 Globulin 3.1 g/dL (1.3-4.6) 05/24/25 03:20 TSH 1.69 uIU/mL (0.27-4.20) 05/19/25 16:28 Urine Color Yellow (Yellow) 05/19/25 16:59 Urine Appearance Clear (CLEAR) 05/19/25 16:59 Urine pH 7.0 (5-7) 05/19/25 16:59 Ur Specific [place] 1.006 (1.005-1.030) 05/19/25 16:59 Urine Protein Negative (Negative) 05/19/25 16:59 Urine Glucose (UA) Negative (Normal) 05/19/25 16:59 Urine Ketones Negative (Negative) 05/19/25 16:59 Urine Blood Trace (Negative) A 05/19/25 16:59 Urine Nitrate Negative (Negative) 05/19/25 16:59 Urine Bilirubin Negative (Negative) 05/19/25 16:59 Urine Urobilinogen 0.2 mg/dL (Negative) 05/19/25 16:59 Ur Leukocyte Esterase Negative (Negative) 05/19/25 16:59 Urine RBC 3-5 /hpf (0-2) 05/19/25 16:59 Urine WBC 0-5 /hpf (0-5) 05/19/25 16:59 Ur Squamous Epith Cells 0-5 /hpf (0-5) 05/19/25 16:59 Amorphous Sediment Not Reportable 05/19/25 16:59 Urine Bacteria None seen /hpf (NONE) 05/19/25 16:59 Hyaline Casts 0-4 /lpf H 05/19/25 16:59 Adenovirus (PCR) Not detected (NOT DETECT) 05/19/25 19:05 C. pneumoniae DNA (PCR) Not detected (NOT DETECT) 05/19/25 19:05 Coronavirus 229E (PCR) Not detected (NOT DETECT) 05/19/25 19:05 Human Metapneumovir PCR Not detected (NOT DETECT) 05/19/25 19:05 Influenza A (H1) PCR Not detected (NOT DETECT) 05/19/25 19:05 Influ A (H1/09) PCR Not detected (NOT DETECT) 05/19/25 19:05 Influenza A (H3) PCR Not detected (NOT DETECT) 05/19/25 19:05 Influenza Type A (PCR) Not detected (NOT DETECT) 05/19/25 19:05 Influenza Type B (PCR) Not detected (NOT DETECT) 05/19/25 19:05 M. pneumoniae (PCR) Not detected (NOT DETECT) 05/19/25 19:05 Parainfluenza 1 (PCR) Not detected (NOT DETECT) 05/19/25 19:05 Parainfluenza 2 (PCR) Not detected (NOT DETECT) 05/19/25 19:05 Parainfluenza 3 (PCR) Not detected (NOT DETECT) 05/19/25 19:05 Parainfluenza 4 (PCR) Not detected (NOT DETECT) 05/19/25 19:05 RSV Type A (PCR) Not detected (NOT DETECT) 05/19/25 19:05 RSV Type B (PCR) Not detected (NOT DETECT) 05/19/25 19:05 Entero/Rhino (PCR) Not detected (NOT DETECT) 05/19/25 19:05 SARS-CoV-2 (PCR) Not detected (NOT DETECT) 05/19/25 19:05 Vitals Last Vital Signs Temp 97.5 F L 05/24/25 04:00 Pulse 57 L 05/24/25 08:00 Resp 22 H 05/24/25 08:00 BP 153/65 05/24/25 08:00 Pulse Ox 95 05/24/25 08:00 O2 Del Method BiPAP 05/24/25 07:55 O2 Flow Rate 5 05/24/25 02:00 FiO2 40 05/24/25 07:55 Discharge Plan Discharge Patient Disposition: Home Condition: Stable Prescriptions: New amiodarone [Pacerone] 200 mg Tablet See Rx Instructions .ROUTE .COMPLEX 5 Days Qty: 90 0RF Rx Instructions: 400mg bid for 4 days 200mg bid for 7 days 200mg daily to continue Eliquis 5 mg Tablet 5 mg PO BID@0900,2100 90 Days Qty: 90 0RF dextromethorphan-guaifenesin 10-100 mg/5 mL Syrup 10 ml PO Q4H PRN (Reason: Cough) 10 Days Qty: 500 0RF benzonatate 100 mg Capsule 200 mg PO TID PRN (Reason: Cough) 10 Days Qty: 30 0RF metoprolol tartrate 25 mg Tablet 25 mg PO BID@0900,2100 90 Days Qty: 90 0RF levofloxacin 750 mg tablet 750 mg PO DAILY 5 Days Qty: 7 0RF prednisone 20 mg tablet 20 mg PO BID 2 Days Qty: 4 0RF furosemide [Lasix] 20 mg tablet 20 mg PO DAILY Qty: 90 0RF Continued (DME) cam boot to left See Rx Instructions .Route .MEDSUPPLY Qty: 1 0RF Rx Instructions: As directed (DME) ASO to left See Rx Instructions .Route .MEDSUPPLY Qty: 1 0RF Rx Instructions: As directed (DME) Rollator Walker See Rx Instructions .Route .MEDSUPPLY Qty: 1 0RF Rx Instructions: As directed Home acetaminophen 500 mg Tablet 500 mg PO Q6H PRN (Reason: Pain) levothyroxine 50 mcg tablet 50 mcg PO DAILY@08 albuterol sulfate 90 mcg/actuation HFA aerosol inhaler 2 puff INHALATION QID PRN (Reason: Shortness Of Breath) Qty: 8.5 5RF cilostazol 100 mg tablet 100 mg PO BID albuterol sulfate 2.5 mg /3 mL (0.083 %) solution for nebulization 2.5 mg inhalation QID PRN (Reason: Shortness Of Breath) isosorbide mononitrate 30 mg tablet extended release 24 hr 30 mg PO DAILY clopidogrel 75 mg tablet 75 mg PO DAILY pantoprazole 40 mg tablet,delayed release (DR/EC) 40 mg PO DAILY rosuvastatin 40 mg tablet 40 mg PO BEDTIME cetirizine 10 mg Tablet 10 mg PO DAILY alprazolam 0.25 mg tablet 0.25 mg PO Q6H PRN (Reason: Anxiety) lorazepam [Ativan] 0.5 mg tablet 0.5 mg PO Q4H PRN (Reason: restlessness/anxiety) montelukast 10 mg tablet 10 mg PO DAILY Discontinued metoprolol tartrate 50 mg tablet 50 mg PO BID Relay Assembler OK for DC: Cardiology Discharge Order = DC NOW: Discharge Order (Routine); Ordered 05/24/25 Ordered By: Judy Pineda Referrals: Marilyn Moore MD [Physician, Cardiology] - 2 weeks Joi Narayanan FNP [Nurse Practitioner, Cardiology] - 2 weeks Katie Dobbs PA [Primary Care Provider, Physicians Fire Extinguisher Mechanic] Discharge Diet: Advance as tolerated, Usual diet and Cardiac Discharge Activity: Resume usual activity, Increase activity as tolerated, Limit activity as instructed and Use walker/crutches as instructed Patient Instructions: Opioid Safety, Patient Portal & Mo Instructions Discharge Attestations Time Spent in Discharge Care*: greater than 30 min Specific Discharge Activities: educating patient, educating and/or supporting family/caregiver, discussing with pcp/other providers, discussing with case supervisor/social workers/dc planners, documenting/other paperwork and evaluating patient/reviewing data Status at Discharge: Cognitive status at discharge: cognitively intact, Behavioral status at discharge: cooperative, Functional status at discharge: other assisted ambulation, Overall status at discharge: patient is back to baseline Quality Metrics Clinical Quality Measures [ No reported AMI, CVA or VTE this stay] Coding Level of Care Code Critical Care >/= 30 minutes Diagnoses Coronary artery disease I25.10 Atrial fibrillation with rapid ventricular response I48.91 Chronic respiratory failure with hypoxia and hypercapnia J96.11; J96.12 Benign essential HTN I10 Mixed hyperlipidemia E78.2 Hyperlipidemia type: mixed hyperlipidemia Peripheral arterial disease I73.9
== END 2025-05-24 14:30 | disposition home or self-care (01) | DRG 308 ==
LOC: ER 17:32 → ICU 17:50
PROVIDERS: Internal Medicine; Admitting Provider Student in an Organized Health Care Education/Training Program; Emergency Provider General Practice; PCP Physician Assistant; Visit Provider Student in an Organized Health Care Education/Training Program
DX: I48.91 Unspecified atrial fibrillation (principal); J96.21 Acute and chronic respiratory failure with hypoxia; J44.1 Chronic obstructive pulmonary disease with (acute) exacerbation; J96.12 Chronic respiratory failure with hypercapnia; I25.10 Atherosclerotic heart disease of native coronary artery without angina pectoris; Z99.81 Dependence on supplemental oxygen; I10 Essential (primary) hypertension; E78.2 Mixed hyperlipidemia; I73.9 Peripheral vascular disease, unspecified; J43.9 Emphysema, unspecified; I65.23 Occlusion and stenosis of bilateral carotid arteries; K21.9 Gastro-esophageal reflux disease without esophagitis; E03.9 Hypothyroidism, unspecified; F17.210 Nicotine dependence, cigarettes, uncomplicated; F41.9 Anxiety disorder, unspecified; Z79.02 Long term (current) use of antithrombotics/antiplatelets
CPT/HCPCS: 36415; 36600; 51702; 71045; 80048; 80051; 80053; 81001; 82330; 82805; 83735; 84443; 84484; 85025; 85378; 87040; 87077; 87150; 87186; 87205; 87486; 87581; 87633; 93005; 93306; 93925; 94640; 94660; 96365; 96366; 96367; 96372; 99285; A4222; J0283; J0456; J0696; J1644; J1938; J2060; J2405; J2919; J3490; J7030; J7050; J7611; J7613; J7644; J9999

== ENCOUNTER → 2025-06-06 10:33 | Outpatient (BNVA) | payer MEDICARE, SELFPAY | PROVIDERS: PCP Physician Assistant; Visit Provider Internal Medicine | DX: J43.9 Emphysema, unspecified (principal); J96.12 Chronic respiratory failure with hypercapnia; J96.11 Chronic respiratory failure with hypoxia; F17.210 Nicotine dependence, cigarettes, uncomplicated; J44.9 Chronic obstructive pulmonary disease, unspecified | CPT/HCPCS: 36415; 85025; 99214 ==

== ENCOUNTER 2025-06-09 19:48 | Inpatient (IN) | payer MEDICARE, SELFPAY ==
--- OUTSIDE RECORDS SUMMARY | 2025-06-09 19:51 | XMS_ITS | Encounter Summary ---
Author Organization [facility] Address [address] [place] [address] Care Team Providers Care Transport Tank Technician Name Role Phone Unavailable Primary Care Provider Unavailabl e Encounter Details Date Type Department Care Team (Late st Contact Info) Description 09/06/2016 Lab Requisition [facility] General Laboratory Services [place] [address] [address] Colin Gómez DO NO ADDRESS ON FILE Social History Tobacco Use Types Packs/Day Years Used Date Smoking Tobacco: Every Day Cigarettes 1 40 Comments Unknown Sex and Gender Information Value Date Recorded Sex Assigned at Not on file 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 Gender Identity Not on file Sexual Orientation Not on file documented as of this encounter Plan of Treatment Not on file documented as of this encounter Procedures Procedure Name Priority Date/Time Associated Diagnosis Comments TSH Routine 09/06/2016 8:53 PM DANCE TEACHER documented in this encounter Results * TSH (09/06/2016 8:53 PM DANCE TEACHER) TSH 1.76 0.27 - 4.20 uIU/mL 09/06/2016 10:45 PM DANCE TEACHER [facility] Blood 09/06/2016 8:53 PM DANCE TEACHER 09/06/2016 9:41 PM DANCE TEACHER Colin Gómez DO CHEMISTRY ORDERABLES Final Resu lt [facility] CLIA # [id number] [address] [place] [address] [address] [place] [address] documented in this encounter Visit Diagnoses Not on filedocumented in this encounter
--- OUTSIDE RECORDS SUMMARY | 2025-06-09 19:51 | XMS_ITS | Encounter Summary ---
Author Organization [facility] Address [address] [place] [address] Care Team Providers Care Well Logging Captain Name Role Phone Unavailable Primary Care Provider Unavailabl e Encounter Details Date Type Department Care Team (Late st Contact Info) Description 01/17/2017 Lab Requisition [facility] General Laboratory Services [place] [address] [place] [id number] Colin Gómez DO NO ADDRESS ON FILE Social History Tobacco Use Types Packs/Day Years Used Date Smoking Tobacco: Every Day Cigarettes 1 40 Comments Unknown Sex and Gender Information Value Date Recorded Sex Assigned at Not on file 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 [employer] Gender Identity Not on file Sexual Orientation [...] - 4.20 uIU/mL 01/18/2017 12:37 AM CDT [facility] Blood 01/17/2017 7:44 PM CDT 01/17/2017 11:47 PM CDT us Colin Gómez DO CHEMISTRY ORDERABLES Final Resu lt [facility] CLIA # [id number] [address] [id number] * (ABNORMAL) LIPID PANEL (01/17/2017 7:44 PM CDT) CHOLESTEROL 189 <200 mg/dL 01/18/2017 12:37 AM CDT [facility] TRIGLYCERIDE 170(H) <150 mg/dL 01/18/2017 12:37 AM CDT [facility] HDL 67(H) 40 - 59 mg/dL 01/18/2017 12:37 AM CDT [facility] LDL CALCULATED 88 <100 mg/dL 01/18/2017 12:37 AM T [facility] NON-HDL CHOLESTEROL 122 <130 mg/dL 01/18/2017 12:37 AM T [facility] Blood 01/17/2017 7:44 PM CDT 01/17/2017 11:47 PM CDT Narrative [facility] - 01/18/2017 12:37 AM CDT TOTAL [...] Gómez DO CHEMISTRY ORDERABLES Final Resu lt [facility] CLIA # [id number] [address] [place] [id number] documented in this encounter Visit Diagnoses Not on filedocumented in this encounter
--- OUTSIDE RECORDS SUMMARY | 2025-06-09 19:51 | XMS_ITS | Encounter Summary ---
Author Organization [facility] Address [address] [place] [address] Care Team Providers Care Concrete Block Layer Name Role Phone Unavailable Primary Care Provider Unavailabl e Encounter Details Date Type Department Care Team (Late st Contact Info) Description 06/07/2016 Lab Requisition [facility] General Laboratory Services [place] [address] [place] [phone] Bertram Ryder DO NO ADDRESS ON FILE Social History Tobacco Use Types Packs/Day Years Used Date Smoking Tobacco: Every Day Cigarettes 1 40 Comments Unknown Sex and Gender Information Value Date Recorded Sex Assigned at Not on file 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 Gender Identity Not on file Sexual Orientation [...] - 30 mm/Hr 06/07/2016 11:23 PM CDT [facility] Blood Collection / Unknown 06/07/2016 9:32 PM CDT 06/07/2016 9:37 PM CDT us Bertram Ryder DO HEMATOLOGY ORDERABLES Final Result [facility] CLIA # [id number] [address] [place] [address] * (ABNORMAL) CBC WITH DIFFERENTIAL (06/07/2016 9:32 PM CDT) WBC 7.6 4.0 - 10.0 K/uL 06/07/2016 10:32 PM [facility] RBC 5.96(H) 3.93 - 5.22 M/uL 06/07/2016 10:32 PM [facility] HEMOGLOBIN 15.8(H) 11.2 - 15.7 g/dL 06/07/2016 10:32 PM [facility] HEMATOCRIT 47.2(H) 34.1 - 44.9 % 06/07/2016 10:32 PM [facility] MCV 79.2(L) 79.4 - 94.8 fL 06/07/2016 10:32 PM [facility] MCH 26.5 25.6 - 32.2 pg 06/07/2016 10:32 PM [facility] MCHC 33.5 32.2 - 35.5 g/dL 06/07/2016 10:32 PM [facility] RDW 16.0(H) 11.0 - 14.5 % 06/07/2016 10:32 PM [facility] RDW-STDEV 46.0 36.9 - 56.9 fL 06/07/2016 10:32 PM [facility] PLATELETS 363(H) 163 - 337 K/uL 06/07/2016 10:32 PM [facility] MPV 10.7 10.0 - 14.8 fL 06/07/2016 10:32 PM [facility] NEUTROPHILS 64 34 - 71 % 06/07/2016 10:32 PM [facility] LYMPHOCYTES 30 19 - 52 % 06/07/2016 10:32 PM [facility] MONOCYTES 6 5 - 13 % 06/07/2016 10:32 PM [facility] EOSINOPHILS 0(L) 1 - 6 % 06/07/2016 10:32 PM [facility] BASOPHILS 0 0 - 1 % 06/07/2016 10:32 PM [facility] NEUTROPHIL ABSOLUTE 4.86 1.56 - 6.13 K/uL 06/07/2016 10:32 PM [facility] LYMPHOCYTE ABSOLUTE 2.25 1.20 - 3.40 K/uL 06/07/2016 10:32 PM [facility] MONOCYTE ABSOLUTE 0.46(H) 0.24 - 0.36 K/uL 06/07/2016 10:32 PM [facility] EOSINOPHIL ABSOLUTE 0.01(L) 0.04 - 0.36 K/uL 06/07/2016 10:32 PM [facility] BASOPHILS ABSOLUTE 0.02 0.01 - 0.08 K/uL 06/07/2016 10:32 PM [facility] IMMATURE GRANULOCYTES 0 % 06/07/2016 10:32 PM [facility] IMMATURE GRANULOCYTES ABSOLUTE 0.02 K/uL 06/07/2016 10:32 PM [facility] Blood Collection / Unknown 06/07/2016 9:32 PM CDT 06/07/2016 9:37 PM CDT us Bertram Ryder DO HEMATOLOGY ORDERABLES Final Result [facility] CLIA # [id number] [address] [place] [address] documented in this encounter Visit Diagnoses Not on filedocumented in this encounter
--- OUTSIDE RECORDS SUMMARY | 2025-06-09 19:51 | XMS_ITS | Encounter Summary ---
Author Organization [facility] Address [address] [place] [address] Care Team Providers Care Psychometrist Name Role Phone Unavailable Primary Care Provider Unavailabl e Encounter Details Date Type Department Care Team (Late st Contact Info) Description 05/03/2016 Lab Requisition [facility] General Laboratory Services [place] [address] [place] [phone] Luther Pandey MD NO ADDRESS ON FILE Social History Tobacco Use Types Packs/Day Years Used Date Smoking Tobacco: Every Day Cigarettes 1 40 Comments Unknown Sex and Gender Information Value Date Recorded Sex Assigned at Not on file 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 Gender Identity Not on file Sexual Orientation [...] - 70 % 05/03/2016 11:54 PM CDT [facility] LYMPHOCYTES RELATIVE 40 20 - 45 % 05/03/2016 11:54 PM T [facility] MONOCYTES RELATIVE 8 2 - 8 % 05/03/2016 11:54 PM [facility] EOSINOPHILS RELATIVE 1 0 - 5 % 05/03/2016 11:54 PM T [facility] NEUTROPHILS ABSOLUTE COUNT 4.54 1.78 - 5.38 K/uL 05/03/2016 11:54 PM CDT [facility] LYMPHOCYTES ABSOLUTE 3.56 1.20 - 4.00 K/uL 05/03/2016 11:54 PM T [facility] MONOCYTES ABSOLUTE 0.71 0.30 - 0.82 K/uL 05/03/2016 11:54 PM [facility] EOSINOPHILS ABSOLUTE 0.09 0.04 - 0.54 K/uL 05/03/2016 11:54 PM [facility] TOTAL CELLS COUNTED IN DIFF 100 05/03/2016 11:54 PM [facility] PLATELET EST. Consistent with Count 05/03/2016 11:54 PM [facility] RBC MORPHOLOGY Normal 05/03/2016 11:54 PM [facility] Blood 05/03/2016 4:07 PM CDT 05/03/2016 8:23 PM CDT Lithuan[place] Joaquín Sotelo MD HEMATOLOGY ORDE RABLES [facility] Final Result [facility] CLIA # [id number] [address] [place] [address] * (ABNORMAL) TSH (05/03/2016 4:07 PM CDT) TSH 6.69(H) 0.27 - 4.20 uIU/mL 05/03/2016 10:58 PM T [facility] Blood 05/03/2016 4:07 PM CDT 05/03/2016 8:23 PM CDT Luther Sotelo MD CHEMISTRY ORDER DESI Final Result Performing Organization Address City/[facility]/ZIP Co de Phone Number [facility] CLIA # [id number] [address] [place] [address] * (ABNORMAL) LIPID PANEL (05/03/2016 4:07 PM CDT) CHOLESTEROL 199 <200 mg/dL 05/03/2016 10:59 PM CDT [facility] TRIGLYCERIDE 88 <150 mg/dL 05/03/2016 10:59 PM CDT [facility] HDL 56 40 - 59 mg/dL 05/03/2016 10:59 PM CDT [facility] LDL CALCULATED 125(H) <100 mg/dL 05/03/2016 10:59 PM CDT [facility] NON-HDL CHOLESTEROL 143(H) <130 mg/dL 05/03/2016 10:59 PM CDT [facility] Blood 05/03/2016 4:07 PM CDT 05/03/2016 8:23 PM CDT Narrative [facility] - 05/03/2016 10:59 PM CDT [...] ORDER DESI Final Result Performing Organization Address City/[facility]/ZIP Co de Phone Number [facility] CLIA # [id number] [address] [place] [address] * T4 FREE (05/03/2016 4:07 PM CDT) T4 FREE 1.19 0.93 - 1.70 ng/dL 05/03/2016 10:59 PM [facility] Blood 05/03/2016 4:07 PM CDT 05/03/2016 8:23 PM CDT us Luther Sotelo MD CHEMISTRY ORDER DESI Final Result [facility] CLIA # [id number] [address] [place] [address] * (ABNORMAL) COMPREHENSIVE METABOLIC PANEL (05/03/2016 4:07 PM CDT) [facility] SODIUM 140 136 - 145 mmol/L 05/03/2016 10:59 PM [facility] POTASSIUM 4.1 3.5 - 5.1 mmol/L 05/03/2016 10:59 PM [facility] CHLORIDE 98 98 - 107 mmol/L 05/03/2016 10:59 PM [facility] CO2 25 22 - 29 mmol/L 05/03/2016 10:59 PM [facility] CALCIUM 9.8 8.8 - 10.2 mg/dL 05/03/2016 10:59 PM [facility] BUN 12 8 - 23 mg/dL 05/03/2016 10:59 PM [facility] CREATININE 0.72 0.51 - 0.95 mg/dL 05/03/2016 10:59 PM [facility] GLUCOSE 78 74 - 106 mg/dL 05/03/2016 10:59 PM [facility] TOTAL PROTEIN 7.7 6.6 - 8.7 g/dL 05/03/2016 10:59 PM [facility] ALBUMIN 4.5 3.5 - 5.2 g/dL 05/03/2016 10:59 PM [facility] BILIRUBIN TOTAL 0.2 0.0 - 1.2 mg/dL 05/03/2016 10:59 PM [facility] ALKALINE PHOSPHATASE 115(H) 35 - 104 U/L 05/03/2016 10:59 PM CDT [facility] AST 25 10 - 35 U/L 05/03/2016 10:59 PM CDT [facility] ALT 32 10 - 35 U/L 05/03/2016 10:59 PM CDT [facility] GFR >60 >=60 mL/min/1.7 3 sq meter 05/03/2016 10:59 PM T [facility] Comment: eGFR has not been [...] 3 sq meter 05/03/2016 10:59 PM T [facility] ANION GAP 17 12 - 20 mmol/L 05/03/2016 10:59 PM [facility] Blood 05/03/2016 4:07 PM CDT 05/03/2016 8:23 PM CDT us Luther Sotelo MD CHEMISTRY ORDER DESI [id number] [address] [place] [address] * (ABNORMAL) CBC WITH DIFFERENTIAL (05/03/2016 4:07 PM CDT) WBC 8.9 4.0 - 10.0 K/uL 05/03/2016 10:44 PM CDT [facility] RBC 5.58(H) 3.93 - 5.22 M/uL 05/03/2016 10:44 PM [facility] HEMOGLOBIN 14.7 11.2 - 15.7 g/dL 05/03/2016 10:44 PM T [facility] HEMATOCRIT 44.5 34.1 - 44.9 % 05/03/2016 10:44 PM [facility] MCV 79.7 79.4 - 94.8 fL 05/03/2016 10:44 PM [facility] MCH 26.3 25.6 - 32.2 pg 05/03/2016 10:44 PM [facility] MCHC 33.0 32.2 - 35.5 g/dL 05/03/2016 10:44 PM [facility] RDW 16.3(H) 11.0 - 14.5 % 05/03/2016 10:44 PM [facility] RDW-STDEV 47.3 36.9 - 56.9 fL 05/03/2016 10:44 PM [facility] PLATELETS 357(H) 163 - 337 K/uL 05/03/2016 10:44 PM [facility] MPV 10.9 10.0 - 14.8 fL 05/03/2016 10:44 PM [facility] Blood 05/03/2016 4:07 PM CDT 05/03/2016 8:23 PM CDT Lithuanian Joaquín Sotelo MD HEMATOLOGY TIM REYNOSO Final Result [facility] CLIA # [id number] [address] [place] [address] documented in this encounter Visit Diagnoses Not on filedocumented in this encounter
--- OUTSIDE RECORDS SUMMARY | 2025-06-09 19:51 | XMS_ITS | Clinical Summary ---
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
--- OUTSIDE RECORDS SUMMARY | 2025-06-09 19:51 | XMS_ITS | Encounter Summary ---
Author Organization [facility] Address [address] [place] [address] Care Team Providers Care Roller Bearing Inspector Name Role Phone Unavailable Primary Care Provider Unavailabl e Encounter Details Date Type Department Care Team (Late st Contact Info) Description 08/16/2016 Lab Requisition [facility] General Laboratory Services [place] [address] [place] [phone] Colin Gómez, DO NO ADDRESS ON FILE Social History Tobacco Use Types Packs/Day Years Used Date Smoking Tobacco: Every Day Cigarettes 1 40 Comments Unknown Sex and Gender Information Value Date Recorded Sex Assigned at Not on file 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 Gender Identity Not on file Sexual Orientation Not on file documented as of this encounter Plan of Treatment Not on file documented as of this encounter Procedures Procedure Name Priority Date/Time Associated Diagnosis Comments LIPID PANEL Routine 08/16/2016 8:11 PM TRAFFIC WORKER documented in this encounter Results * (ABNORMAL) LIPID PANEL (08/16/2016 8:11 PM TRAFFIC WORKER) CHOLESTEROL 221(H) <200 mg/dL 08/16/2016 11:48 PM [facility] TRIGLYCERIDE 81 <150 mg/dL 08/16/2016 11:48 PM [facility] HDL 57 40 - 59 mg/dL 08/16/2016 11:48 PM [facility] LDL CALCULATED 148(H) <100 mg/dL 08/16/2016 11:48 PM [facility] NON-HDL CHOLESTEROL 164(H) <130 mg/dL 08/16/2016 11:48 PM [facility] Blood Collection / Unknown 08/16/2016 8:11 PM TRAFFIC WORKER 08/16/2016 9:08 PM TRAFFIC WORKER Narrative [facility] - 08/16/2016 11:48 PM TRAFFIC WORKER TOTAL CHOLESTEROL mg/dL Desirable <200 Borderline high [...] Gómez DO CHEMISTRY ORDERABLES Final Resu lt [facility] CLIA # [id number] [address] [place] [address] documented in this encounter Visit Diagnoses Not on filedocumented in this encounter
--- OUTSIDE RECORDS SUMMARY | 2025-06-09 19:51 | XMS_ITS | Encounter Summary ---
Author Organization [facility] Address [address] [place] [address] Care Team Providers Care Explosives Handler Name Role Phone Unavailable Primary Care Provider Unavailabl e Encounter Details Date Type Department Care Team (Late st Contact Info) Description 09/01/2015 Lab Requisition [facility] Laboratory Services [place] [address] [place] [phone] Flo Lopez PA NO ADDRESS ON FILE Illness Social History Tobacco Use Types Packs/Day Years Used Date Smoking Tobacco: Every Day Cigarettes 1 40 Comments Unknown Sex and Gender Information Value Date Recorded Sex Assigned at Not on file 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 Gender Identity Not on file Sexual Orientation Not on file documented as of this encounter Plan of Treatment Not on file documented as of this encounter Procedures Procedure Name Priority Date/Time Associated Diagnosis Comments TSH Routine 09/01/2015 9:00 PM MEAL MILLER Illness HEPATIC FUNCTION PANEL Routine 09/01/2015 9:00 PM MEAL MILLER Illness LIPID PANEL Routine 09/01/2015 9:00 PM MEAL MILLER Illness BASIC METABOLIC PANEL Routine 09/01/2015 9:00 PM MEAL MILLER Illness documented in this encounter Results * TSH (09/01/2015 9:00 PM MEAL MILLER) TSH 2.20 0.27 - 4.20 uIU/mL 09/01/2015 9:46 PM MEAL MILLER [facility] [place] Blood Collection / Unknown 09/01/2015 9:00 PM MEAL MILLER 09/01/2015 9:00 PM MEAL MILLER Flo CROWDER CHEMISTRY ORDERABLES Final Re sult Performing Organization Address City/[facility]/ZIP Co de Phone Number [facility] [place] CLIA # [id number] [address] [address] * (ABNORMAL) LIPID PANEL (09/01/2015 9:00 PM MEAL MILLER) CHOLESTEROL 160 <200 mg/dL 09/01/2015 9:46 PM MEAL MILLER [facility] [place] TRIGLYCERIDE 161(H) <150 mg/dL 09/01/2015 9:46 PM MEAL MILLER [facility] [place] HDL 54 40 - 59 mg/dL 09/01/2015 9:46 PM MEAL MILLER [facility] LDL CALCULATED 74 <100 mg/dL 09/01/2015 9:46 PM MEAL MILLER [facility] NON-HDL CHOLESTEROL 106 <130 mg/dL 09/01/2015 9:46 PM MEAL MILLER [facility] Blood Collection / Unknown 09/01/2015 9:00 PM MEAL MILLER 09/01/2015 9:00 PM MEAL MILLER Narrative [facility] [place] - 09/01/2015 9:46 PM MEAL MILLER TOTAL CHOLESTEROL mg/dL Desirable <200 Borderline high [...] ORDERABLES Final Re sult Performing Organization Address City/[facility]/ZIP Co de Phone Number [facility] CLIA # [id number] [address] [address] * HEPATIC FUNCTION PANEL (09/01/2015 9:00 PM MEAL MILLER) Pathologist [facility] TOTAL PROTEIN 7.2 6.6 - 8.7 g/dL 09/01/2015 9:46 PM MEAL MILLER [facility] ALBUMIN 3.9 3.5 - 5.2 g/dL 09/01/2015 9:46 PM MEAL MILLER [facility] [place] BILIRUBIN TOTAL <0.2 0.0 - 1.2 mg/dL 09/01/2015 9:46 PM MEAL MILLER [facility] [place] BILIRUBIN DIRECT <0.2 0.0 - 0.3 mg/dL 09/01/2015 9:46 PM [facility] ALKALINE PHOSPHATASE 87 35 - 104 U/L 09/01/2015 9:46 PM MEAL MILLER [facility] AST 17 10 - 35 U/L 09/01/2015 9:46 PM MEAL MILLER [facility] ALT 10 10 - 35 U/L 09/01/2015 9:46 PM [facility] [place] Blood Collection / Unknown 09/01/2015 9:00 PM MEAL MILLER 09/01/2015 9:00 PM MEAL MILLER Flo CROWDER CHEMISTRY ORDERABLES Final Re sult [facility] [place] CLIA # [id number] [address] [place] [address] * (ABNORMAL) BASIC METABOLIC PANEL (09/01/2015 9:00 PM MEAL MILLER) Pathologist [facility] SODIUM 135(L) 136 - 145 mmol/L 09/01/2015 9:46 PM MEAL MILLER [facility] POTASSIUM 3.6 3.5 - 5.1 mmol/L 09/01/2015 9:46 PM [facility] CHLORIDE 97(L) 98 - 107 mmol/L 09/01/2015 9:46 PM [facility] CO2 26 22 - 29 mmol/L 09/01/2015 9:46 PM MEAL MILLER [facility] CALCIUM 9.0 8.8 - 10.2 mg/dL 09/01/2015 9:46 PM [facility] BUN 8 8 - 23 mg/dL 09/01/2015 9:[address] [facility] CREATININE 0.66 0.51 - 0.95 mg/dL 09/01/2015 9:[address] [facility] GLUCOSE 85 74 - 106 mg/dL 09/01/2015 9:[address] [facility] GFR >60 >=60 mL/min/1.7 3 sq meter 09/01/2015 9:46 PM [facility] Comment: eGFR has not been validated for [...] mL/min/1.7 3 sq meter 09/01/2015 9:46 PM [facility] ANION GAP 12 12 - 20 mmol/L 09/01/2015 9:46 PM [facility] Blood Collection / Unknown 09/01/2015 9:00 PM MEAL MILLER 09/01/2015 9:00 PM MEAL MILLER Flo CROWDER CHEMISTRY ORDERABLES Final Re sult [id number] [address] [place] [address] documented in this encounter Visit Diagnoses Diagnosis Illness Other unknown and unspecified cause of morbidity or mortality documented in this encounter
--- OUTSIDE RECORDS SUMMARY | 2025-06-09 19:51 | XMS_ITS | Encounter Summary ---
Author Organization [facility] Address [address] [place] [address] Care Team Providers Care Adult Remedial Education Instructor Name Role Phone Unavailable Primary Care Provider Unavailabl e Encounter Details Date Type Department Care Team (Late st Contact Info) Description 07/07/2015 Lab Requisition [facility] Services [place] [address] [place] [id number] Lorenzo Gregory, LAKESHA [address] [place] [address] Social History Tobacco Use Types Packs/Day Years Used Date Smoking Tobacco: Every Day Cigarettes 1 40 Comments Unknown Sex and Gender Information Value Date Recorded Sex Assigned at Not on file 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:52 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 Gender Identity Not on file Sexual Orientation [...] - 4.20 uIU/mL 07/07/2015 11:25 PM CDT [facility] Blood 07/07/2015 10:3 0 PM CDT 07/07/2015 10:30 PM CDT us Lorenzo CROWDER CHEMISTRY ORDERABLES Final R esult Performing Organization Address City/State/[facility] Co de Phone Number [facility] CLIA # [id number] [address] [place] [id number] * (ABNORMAL) LIPID PANEL (07/07/2015 10:30 PM CDT) CHOLESTEROL 259(H) <200 mg/dL 07/07/2015 11:25 PM CDT [facility] TRIGLYCERIDE 85 <150 mg/dL 07/07/2015 11:25 PM CDT [facility] HDL 78(H) 40 - 59 mg/dL 07/07/2015 11:25 PM CDT [facility] LDL CALCULATED 164(H) <100 mg/dL 07/07/2015 11:25 PM CDT [facility] NON-HDL CHOLESTEROL 181(H) <130 mg/dL 07/07/2015 11:25 PM CDT [facility] Blood 07/07/2015 10:3 0 PM CDT 07/07/2015 10:30 PM CDT Narrative [facility] - 07/07/2015 11:25 PM CDT TOTAL CHOLESTEROL [...] ORDERABLES Final R esult Performing Organization Address City/[facility]/ZIP Co de Phone Number [facility] [place] CLIA # [id number] [address] [address] * (ABNORMAL) COMPREHENSIVE METABOLIC PANEL (07/07/2015 10:30 PM CDT) SODIUM 138 136 - 145 mmol/L 07/07/2015 11:25 PM CDT [facility] [place] POTASSIUM 4.0 3.5 - 5.1 mmol/L 07/07/2015 11:25 PM CDT [facility] CHLORIDE 97(L) 98 - 107 mmol/L 07/07/2015 11:25 PM CDT [facility] [place] CO2 27 22 - 29 mmol/L 07/07/2015 11:25 PM CDT [facility] CALCIUM 9.7 8.8 - 10.2 mg/dL 07/07/2015 11:25 PM CDT [facility] BUN 5(L) 8 - 23 mg/dL 07/07/2015 11:25 PM CDT [facility] CREATININE 0.60 0.51 - 0.95 mg/dL 07/07/2015 11:25 PM CDT [facility] [place] GLUCOSE 75 74 - 106 mg/dL 07/07/2015 11:25 PM CDT [facility] TOTAL PROTEIN 8.7 6.6 - 8.7 g/dL 07/07/2015 11:25 PM CDT [facility] ALBUMIN 4.7 3.5 - 5.2 g/dL 07/07/2015 11:25 PM CDT [facility] [place] BILIRUBIN TOTAL 0.3 0.0 - 1.2 mg/dL 07/07/2015 11:25 PM CDT [facility] [place] ALKALINE PHOSPHATASE 119(H) 35 - 104 U/L 07/07/2015 11:25 PM CDT [facility] [place] AST 34 10 - 35 U/L 07/07/2015 11:25 PM CDT [facility] [place] ALT 34 10 - 35 U/L 07/07/2015 11:25 PM CDT [facility] [place] GFR >60 >=60 mL/min/1.7 3 sq meter 07/07/2015 11:25 PM CDT [facility] Comment: eGFR [...] 3 sq meter 07/07/2015 11:25 PM CDT [facility] ANION GAP 14 12 - 20 mmol/L 07/07/2015 11:25 PM CDT [facility] Blood 07/07/2015 10:3 0 PM CDT 07/07/2015 10:30 PM CDT Lorenzo CROWDER CHEMISTRY ORDERABLES Final R esult [facility] CLIA # [id number] [address] [place] [address] * (ABNORMAL) CBC WITH DIFFERENTIAL (07/07/2015 10:30 PM CDT) WBC 7.8 4.0 - 10.0 K/uL 07/07/2015 10:57 PM CDT [facility] RBC 6.01(H) 3.93 - 5.22 M/uL 07/07/2015 10:57 PM CDT [facility] HEMOGLOBIN 15.7 11.2 - 15.7 g/dL 07/07/2015 10:57 PM CDT [facility] HEMATOCRIT 47.0(H) 34.1 - 44.9 % 07/07/2015 10:57 PM CDT [facility] MCV 78.2(L) 79.4 - 94.8 fL 07/07/2015 10:57 PM CDT [facility] [place] MCH 26.1 25.6 - 32.2 pg 07/07/2015 10:57 PM [facility] [place] MCHC 33.4 32.2 - 35.5 g/dL 07/07/2015 10:57 PM [facility] [place] RDW 16.6(H) 11.0 - 14.5 % 07/07/2015 10:57 PM [facility] [place] RDW-STDEV 46.4 36.9 - 56.9 fL 07/07/2015 10:57 PM [facility] [place] PLATELETS 389(H) 163 - 337 K/uL 07/07/2015 10:57 PM [facility] [place] MPV 10.3 10.0 - 14.8 fL 07/07/2015 10:57 PM [facility] [place] NEUTROPHILS 52 34 - 71 % 07/07/2015 10:57 PM [facility] [place] LYMPHOCYTES 42 19 - 52 % 07/07/2015 10:57 PM [facility] [place] MONOCYTES 6 5 - 13 % 07/07/2015 10:57 PM [facility] [place] EOSINOPHILS 0(L) 1 - 6 % 07/07/2015 10:57 PM [facility] [place] BASOPHILS 0 0 - 1 % 07/07/2015 10:57 PM [facility] [place] NEUTROPHIL ABSOLUTE 4.01 1.56 - 6.13 K/uL 07/07/2015 10:57 PM [facility] [place] LYMPHOCYTE ABSOLUTE 3.28 1.20 - 3.40 K/uL 07/07/2015 10:57 PM [facility] [place] MONOCYTE ABSOLUTE 0.43(H) 0.24 - 0.36 K/uL 07/07/2015 10:57 PM [facility] [place] EOSINOPHIL ABSOLUTE 0.01(L) 0.04 - 0.36 K/uL 07/07/2015 10:57 PM [facility] [place] BASOPHILS ABSOLUTE 0.01 0.01 - 0.08 K/uL 07/07/2015 10:57 PM [facility] [place] IMMATURE GRANULOCYTES 0 % 07/07/2015 10:57 PM CDT [facility] IMMATURE GRANULOCYTES ABSOLUTE 0.01 K/uL 07/07/2015 10:57 PM CDT [facility] Blood 07/07/2015 10:3 0 PM CDT 07/07/2015 10:30 PM CDT us Lorenzo CROWDER HEMATOLOGY ORDERABLES Final Result [facility] [place] CLIA # [id number] [address] [place] [address] documented in this encounter Visit Diagnoses Not on filedocumented in this encounter
[2025-06-09 19:59] VITALS: BP 166/66; PULSE 94; RESP 16; TEMP 36.7; O2SAT 94; BMI 29.6
--- NOTE | 2025-06-09 21:31 | XRR_ITS ---
PROCEDURE INFORMATION: Exam: XR Chest Exam date and time: 06/09/2025 10:40 PM Age: 70 years old Clinical indication: Cough, Nausea, leg swelling TECHNIQUE: Imaging protocol: Radiologic exam of the chest. Views: 1 view. COMPARISON: CR XR chest 1V portable [id number] 05/21/2025 1:26 PM FINDINGS: Lungs: Hazy opacities in the bilateral lower lungs. Pleural spaces: Unremarkable. No pleural effusion. No pneumothorax. Heart/Mediastinum: Unremarkable. No cardiomegaly. Diaphragm: This chest radiograph was completed upright and there is no free air underneath the diaphragm to suggest pneumoperitoneum. Bones/joints: Unremarkable. XR/XR chest 1V portable [id number] IMPRESSION: 1. Hazy opacities in the bilateral lower lungs, differential includes aspiration, infection or atelectasis 2. No free air underneath the diaphragm to suggest pneumoperitoneum on this upright chest radiograph.
[2025-06-09 22:18] LABS: Glucose Urine UA Negative (Normal); Nitrate Urine Negative (Negative); Specific Gravity, Urine 1.006 (1.005-1.030)
--- NOTE | 2025-06-09 22:19 | XRR_ITS ---
PROCEDURE INFORMATION: Exam: XR Abdomen Exam date and time: 06/09/2025 10:42 PM Age: 70 years old Clinical indication: Constipation TECHNIQUE: Imaging protocol: Radiologic exam of the abdomen. Views: Frontal supine view of the abdomen. 1 View. COMPARISON: CT abdomen pelvis w con* [id number] 01/08/2022 11:02 AM FINDINGS: Gastrointestinal tract: No dilated loops of bowel. There is lucency in the left upper quadrant which can not be definitively attributed to a loop of bowel. Bones/joints: Unremarkable. XR/XR KUB portable [id number] IMPRESSION: No dilated loops of bowel. There is lucency in the left upper quadrant which can not be definitively attributed to loop of bowel. This appearance may be due to superimposition of structures. If there is clinical concern for pneumoperitoneum, upright radiographs or cross-sectional imaging could be considered.
[2025-06-09 22:20] LABS: Add Urine Microscopic? YES
[2025-06-09] MEDS: ondansetron 2 mg/ML SDV 2 mL 4 MG IVP (22:53)
[2025-06-09 22:55] LABS: Hematocrit 36.4 % (36-47); Hemoglobin 11.70 g/dL (11.27-16.99); Mean Corpuscular HGB Conc 32.1 g/dL (30-55); Mean Corpuscular Hemoglobin 24.7 pg (27-33); Mean Corpuscular Volume 77.0 fl (85-98); Nucleated Red Blood Cells % 0 %; Platelet Count 349 10^3/cmm (157-399); Red Blood Count 4.73 10^6/uL (3.85-5.65); White Blood Count 6.67 10^3/uL (3.29-11.43)
[2025-06-09 23:03] VITALS: BP 123/103; PULSE 133; RESP 22; O2SAT 97
[2025-06-09 23:03] LABS: Alanine Aminotransferase 12 U/L (0-33); Albumin Level 3.8 g/dL (3.5-5.2); Alkaline Phosphatase 115 U/L (35-105); Anion Gap 15.9 (5-19); Aspartate Amino Transferase 16 U/L (0-32); Blood Urea Nitrogen 4 mg/dL (8-23); Calcium 9.3 mg/dL (8.5-10.5); Carbon Dioxide 28 mmol/L (22-29); Chloride 97 mmol/L (98-107); Globulin 3.4 g/dL (1.3-4.6); Glucose 95 mg/dL (65-115); Lipase 8 U/L (13-60); Osmolality Calculated 283 mOsm/kg (285-295); Sodium 138 mmol/L (136-145); Total Protein 7.2 g/dL (6.6-8.7)
[2025-06-09 23:05] LABS: Creatinine Clr Calc Pharmacy 38.8051
[2025-06-09 23:06] LABS: Potassium 2.9 mmol/L (3.5-5.1)
--- NOTE | 2025-06-09 23:11 | ECG_ITS ---
[facility] Date: 2025-06-09 Pat Name: Cinthia Palacios Department: Room: Gender: Female Software Engineering Supervisor: : [id number] Requested By: Jean-Claude Murillo Order Number: [id number] Shana MD: Marilyn Moore M.D. Measurements Intervals Marshall Rate: 126 P: 0 MT: 0 QRS: 72 QRSD: 97 T: -43 QT: 256 QTc: 371 Interpretive Statements ATRIAL FIBRILLATION WITH RAPID VENTRICULAR RESPONSE WITH ABERRANT CONDUCTION OR VENTRICULAR PREMATURE COMPLEXES NONSPECIFIC ST & T-WAVE ABNORMALITY Compared to ECG 05/20/2025 03:14:06 Ventricular premature complex(es) now present Aberrant conduction of supraventricular beat(s) now present T-wave abnormality now present Sinus rhythm no longer present Myocardial infarct finding no longer present Electronically Signed On 06-11-2025 08:14:27 CDT by Marilyn Moore M.D. [email or web address]
[2025-06-09 23:20] LABS: Magnesium 2.4 mg/dL (1.7-2.3)
[2025-06-09 23:22] LABS: Troponin(5th) Baseline 14 ng/L (0-10)
[2025-06-10] VITALS (12 sets, daily range): BP systolic 98–165; BP diastolic 61–89; PULSE 61–126; RESP 16–24; TEMP 35.9–36.6; O2SAT 90–99; BMI 29.6
[2025-06-10 00:06] LABS: NT Pro B Type Natriuretic Pept 133 pg/mL (0-125)
[2025-06-10] MEDS: dilTIAZem 5 mg/mL SDV 5 mL 20 MG IVP (01:01)
[2025-06-10] MEDS: dilTIAZem 100 MG in sodium chloride 0.9% (add-van) 100 ML IV (01:03)
[2025-06-10] MEDS: lidocaine 1% 5 ML in potassium chloride premix 100 ML 26.25 ML IV (01:03)
[2025-06-10 01:26] LABS: Troponin 5 2HR 15.11 ng/L (0-10); Troponin 5 2HR Delta 1.11 ABS# (0-10)
--- NOTE | 2025-06-10 02:49 | W.ED.NAVMDI ---
HPI - Nausea/Vomiting/Diarrhea General: Chief complaint: Nausea/Vomiting/Diarrhea Stated complaint: Sick to stomach, feet swollen Time Seen by Provider: 06/09/25 21:31 History of Present Illness: Patient is a 70-year-old female presenting with multiple complaints. She reports severe constipation for the past couple of weeks, stating her 'bowels just quit moving.' She describes needing to take laxatives to force bowel movements, which remain difficult. The patient also complains of significant bilateral foot swelling that causes pain when walking, describing it as 'like the flesh is tearing.' She reports feeling generally unwell with abdominal discomfort described as 'buzzing' in her stomach. Patient was recently discharged from the hospital approximately two weeks ago (early May 2025). She reports being placed on an antibiotic yesterday, which she believes may be exacerbating her symptoms. She reports experiencing mild fever last week and has a productive cough. Related Data Home Medications ?Medication ?Instructions ?Recorded ?Confirmed acetaminophen 500 mg tablet 500 mg PO Q6H PRN Pain 04/04/23 06/06/25 levothyroxine 50 mcg tablet 50 mcg PO DAILY@08 04/04/23 06/06/25 albuterol sulfate 2.5 mg/3 mL 2.5 mg inhalation QID PRN 02/25/25 06/06/25 (0.083 %) solution for nebulization Shortness Of Breath cetirizine 10 mg tablet 10 mg PO DAILY 02/25/25 06/06/25 cilostazol 100 mg tablet 100 mg PO BID 02/25/25 06/06/25 clopidogrel 75 mg tablet 75 mg PO DAILY 02/25/25 06/06/25 isosorbide mononitrate 30 mg 30 mg PO DAILY 02/25/25 06/06/25 tablet,extended release 24 hr pantoprazole 40 mg tablet,delayed 40 mg PO DAILY 02/25/25 06/06/25 release rosuvastatin 40 mg tablet 40 mg PO BEDTIME 02/25/25 06/06/25 alprazolam 0.25 mg tablet 0.25 mg PO Q6H PRN Anxiety 05/19/25 06/06/25 lorazepam 0.5 mg tablet (Ativan) 0.5 mg PO Q4H PRN 05/19/25 06/06/25 restlessness/anxiety Previous Rx's ?Medication ?Instructions ?Recorded albuterol sulfate 90 mcg/actuation 2 puff inhalation QID PRN 11/27/24 aerosol inhaler Shortness Of Breath #8.5 grams apixaban 5 mg tablet (Eliquis) 5 mg PO BID@0900,2099 90 days #90 05/24/25 tabs metoprolol tartrate 25 mg tablet 25 mg PO BID@0900,2100 90 days #90 05/24/25 tabs fluticasone fur. 100 mcg-umeclid 1 inh inhalation Q24H #28 ea 06/06/25 62.5 mcg-vilant 25 mcg inhalat.powder (Trelegy Ellipta) nicotine 21 mg/24 hr daily 1 patch transdermal DAILY #28 ea 06/06/25 transdermal patch Allergies Allergy/AdvReac Type Severity Reaction Status Date / Time diphenhydramine (From Allergy Intermediate ALGY-Hives Verified 06/06/25 10:43 Benadryl) sulfabenzamide Allergy Intermediate swelling Verified 06/06/25 10:43 [facility] ED PFSH: Medical History (Updated 06/10/25 @ 05:04 by Jean-Claude Oakley DO) Pulmonary infiltrates Obstructive sleep apnea Acute exacerbation of chronic obstructive pulmonary disease Peripheral arterial disease Benign essential HTN Viral pneumonia Influenza Hypoxia Acute bronchitis Acute on chronic respiratory failure with hypoxia and hypercapnia Grade III diastolic dysfunction MURILLO (dyspnea on exertion) Atherosclerosis of coronary artery Hypertension Adult hypothyroidism Mixed hyperlipidemia Dyspnea on exertion Malaise and fatigue Chronic obstructive asthma with exacerbation Emphysema/COPD GERD (gastroesophageal reflux disease) Back pain Palpitations Hypothyroidism Insomnia Park's palsy Hx of hyperlipidemia Anxiety Hx of breast cancer CAD (coronary artery disease) History of hypertension PAD (peripheral artery disease) Syncope Bilateral carotid artery stenosis without cerebral infarction Surgical History H/O tubal ligation History of cholecystectomy Status post carotid endarterectomy Family History Mother Lung disease Family/Other Cancer Grandmother CAD (coronary artery disease) Stroke Father Bleeding disorder Denies family history of Diabetes Clotting disorder Dementia Chronic kidney disease (CKD) Suicide Anesthesia complication Social History Smoking and tobacco/nicotine status: current every day tobacco/nicotine user (1/2 ppd X 58 years. ) cigarettes Packs smoked per day: 1 Years cigarettes smoked: 31 [ Other cigarette details: Started at age 22] Alcohol intake: never Substance/Drug Use: never Physical Exam Const: COMMON NORMALS: alert GENERAL APPEARANCE: cooperative, ill appearing (Mildly) and frail appearing ORIENTATION/CONSCIOUSNESS: Yes awake, Yes oriented to person and Yes oriented to place HENMT: COMMON NORMALS: normocephalic, atraumatic and Normal external nose present HEAD & SCALP: normocephalic and atraumatic FACE & SINUS: normal facial exam and face symmetric NOSE: Normal external nose present Eye: COMMON NORMALS: Equal, round and reactive pupils present and EOMs intact bilaterally PUPIL: Yes Equal, round and reactive pupils present Resp: EFFORT & INSPECTION: Yes tachypneic and Yes labored (Mildly) Cardio: RATE: tachycardic RHYTHM: abnormal rhythm irregularly irregular GI: COMMON NORMALS: Soft to palpation PALPATION: Yes Soft to palpation Neuro: ARY COMA SCALE: document GCS findings Ary coma scale eye opening: Spontaneous Ary coma scale verbal response: Orientated Ary coma scale motor response: Obey commands Ary coma scale total score: 15 SENSORIUM/ORIENTATION: Yes alert, Yes oriented to person and Yes oriented to place COORDINATION/BALANCE: [id number]-[id number] test normal SPEECH: speech normal COORDINATION: [id number] test normal Course Vital Signs: Vital signs: Vital Signs Temperature 97.8 F 06/10/25 04:14 Pulse Rate 74 06/10/25 04:14 Respiratory Rate 21 H 06/10/25 04:14 Blood Pressure 98/61 06/10/25 04:14 Pulse Oximetry 90 06/10/25 04:14 Oxygen Delivery Me thod Nasal Cannula 06/10/25 04:28 Oxygen Flow Rate 5 06/10/25 03:43 MDM - Nausea/Vomiting/Diarrhea Medical Decision Making Patient presents with constipation symptoms, some shortness of breath, lower leg swelling, and a heart rate in the 140s that is irregular. She is anticoagulated. She does have a history of atrial fibrillation. Blood pressure has been fine. She is not complaining of chest pain. Potassium is 2.9. CBC is normal. Creatinine is 1.2. X-ray shows hazy opacities in bilateral lower lungs differential includes aspiration infection or atelectasis. I am inclined to believe this is atelectasis versus edema. KUB shows no obstruction. She is covered with antibiotics. She is placed on a diltiazem drip with some improvement in her heart rate from the 150s down to the 100s. 125 mcg of digoxin was also used. She will go to the [facility]. Hospitalist has seen the patient. Lab Data 06/09/25 22:29 06/09/25 22:29 Radiology Impressions Chest X-Ray 06/09/25 21:31 IMPRESSION: 1. Hazy opacities in the bilateral lower lungs, differential includes aspiration, infection or atelectasis 2. No free air underneath the diaphragm to suggest pneumoperitoneum on this upright chest radiograph. KUB X-Ray 06/09/25 22:19 IMPRESSION: No dilated loops of bowel. There is lucency in the left upper quadrant which can not be definitively attributed to loop of bowel. This appearance may be due to superimposition of structures. If there is clinical concern for pneumoperitoneum, upright radiographs or cross-sectional imaging could be considered. Laboratory Results WBC 6.67 10^3/uL (3.29-11.43) 06/09/25: RBC 4.73 10^6/uL (3.85-5.65) 06/09/25: Hgb 11.70 g/dL (11.27-16.99) 06/09/25: Hct 36.4 % (36-47) 06/09/25: MCV 77.0 fl (85-98) L 06/09/25: MCH 24.7 pg (27-33) L 06/09/25: MCHC 32.1 g/dL (30-55) 06/09/25: RDW 15.9 % (12.1-15.1) H 06/09/25: Plt Count 349 10^3/cmm (157-399) 06/09/25: MPV 9.1 fL (7.4-10.4) 06/09/25: Neut % (Auto) 67.2 % 06/09/25: Lymph % (Auto) 20.1 % 06/09/25: [place] % (Auto) 8.7 % 06/09/25: Eos % (Auto) 3.4 % 06/09/25 22: Baso % (Auto) 0.3 % 06/09/25: Neut # (Auto) 4.48 10^3/uL (1.8-7.7) 06/09/25: Lymph # (Auto) 1.3 10^3/uL (0.8-4.8) 06/09/25: [place] # (Auto) 0.6 10^3/uL (0.2-0.9) 06/09/25: Eos # (Auto) 0.2 10^3/uL (0.0-0.8) 06/09/25: Baso # (Auto) 0.0 10^3/uL (0.0-0.1) 06/09/25: Nucleated RBC % (auto) 0 % 06/09/25: Nucleated RBCs # 0.0 /100WBC 06/09/25: Sodium 138 mmol/L (136-145) 06/09/25: Potassium 2.9 mmol/L (3.5-5.1) L 06/09/25: Chloride 97 mmol/L (98-107) L 06/09/25: Carbon Dioxide 28 mmol/L (22-29) 06/09/25: Anion Gap 15.9 (5-19) 06/09/25: BUN 4 mg/dL (8-23) L 06/09/25: Creatinine 1.2 mg/dL (0.5-0.9) H 06/09/25: GFR Calculation Not Reportable 06/09/25: Glucose 95 mg/dL (65-115) 06/09/25: Calculated Osmolality 283 mOsm/kg (285-295) L 06/09/25: Calcium 9.3 mg/dL (8.5-10.5) 06/09/25: Magnesium 2.4 mg/dL (1.7-2.3) H 06/09/25: Total Bilirubin 0.3 mg/dL (0.15-1.2) 06/09/25: AST 16 U/L (0-32) 09/14/25 22:29 ALT 12 U/L (0-33) 06/09/25 22:29 Alkaline Phosphatase 115 U/L (35-105) H 06/09/25 22:29 Troponin T Baseline 14 ng/L (0-10) H 06/09/25 22: Troponin T 120 Minute 15.11 ng/L (0-10) H 06/10/25 00:57 Delta Troponin T 1.11 ABS# (0-10) 06/10/25 00:57 C-Reactive Protein 8.7 mg/L (0.0-4.9) H 06/09/25 22: NT-Pro-B Natriuret Pep 133 pg/mL (0-125) H 06/09/25 22: Total Protein 7.2 g/dL (6.6-8.7) 06/09/25 22: Albumin 3.8 g/dL (3.5-5.2) 06/09/25 22: Globulin 3.4 g/dL (1.3-4.6) 06/09/25: Lipase 8 U/L (13-60) L 06/09/25 22:29 Urine Color Yellow (Yellow) 06/09/25 22:10 Urine Appearance Clear (CLEAR) 06/09/25 22:10 Urine pH 7.0 (5-7) 06/09/25 22:10 Ur Specific [place] 1.006 (1.005-1.030) 06/09/25 22:10 Urine Protein 2+ (Negative) A 06/09/25 22:10 Urine Glucose (UA) Negative (Normal) 06/09/25 22:10 Urine Ketones Negative (Negative) 06/09/25 22:10 Urine Blood 1+ (Negative) A 06/09/25 22:10 Urine Nitrate Negative (Negative) 06/09/25 22:10 Urine Bilirubin Negative (Negative) 06/09/25 22:10 Urine Urobilinogen 0.2 mg/dL (Negative) 06/09/25 22:10 Ur Leukocyte Esterase Negative (Negative) 06/09/25 22:10 Urine RBC 3-5 /hpf (0-2) 06/09/25 22:10 Urine WBC 0-5 /hpf (0-5) 06/09/25 22:10 Ur Squamous Epith Cells 0-5 /hpf (0-5) 06/09/25 22:10 Amorphous Sediment Not Reportable 06/09/25 22:10 Urine Bacteria None seen /hpf (NONE) 06/09/25 22:10 Hyaline Casts 0-4 /lpf H 06/09/25 22:10 All radiology interpretation(s) finalized by discharge Critical Care Time Critical Care Time: Critical Care Time: Yes Total Critical Care Time: 35 Attestation: This case had a high probability of a clinically significant, sudden, or life threatening deterioration of this patient's condition which required my full and direct attention, intervention and personal management. Time is independent of any procedures performed. Discharge Plan Discharge Patient Disposition: Admitted As Inpatient Admit Provider: Britney Robles Clinical Impression: Hypokalemia, Atrial fibrillation with rapid ventricular response Condition: Fair Coding Level of Care Code ED Varnish Remover for Tevin Gonzalez
--- NOTE | 2025-06-10 04:41 | PM.HP ---
Providers/Chief Complaint Admitting Physician: Britney Robles MD----patient seen after 12 midnight Primary Care Provider: Katie Dobbs Chief Complaint: Sick to stomach, feet swollen History of Present Illness Cinthia Palacios is a 70 year old female with medical history significant for COPD and exacerbation. Recently patient is not being evaluated for sleep studies because of noted obstructive sleep apnea patient was stopped breathing whenever she is sleeping. This patient was admitted and treated inpatient 2 weeks ago and finally got discharged after optimizing COPD exacerbation. She had done well at home and now representing this time because of shortness of breath and palpitation. At presentation patient had rapid ventricular rates from atrial fibrillation in the 140s chest x-ray were significant for bilateral pneumonia. She is chronic home oxygen at 5 L of oxygen nasal cannula and maintaining 5 L at this time of presentation. Patient had been placed on Cardizem drip and finally was given digoxin as well to optimize rapid ventricular rate. Patient at this time is being sent to the cardiac stepdown unit to continue care Because of patient recent hospitalization patient was placed on antibiotics of Zosyn and vancomycin for her bilateral pneumonia at that new since hospitalization. Patient is feeling much better leaving the ED going to stepdown unit. Review of Systems Narrative: System review upon 10 organ review with significant for cardiopulmonary disorder otherwise unremarkable. Medications/Allergies Home Medications ?Medication ?Instructions ?Recorded ?Confirmed ?Last Taken ?Type acetaminophen 500 mg tablet 500 mg PO Q6H PRN Pain 04/04/23 06/06/25 05/19/25 History levothyroxine 50 mcg tablet 50 mcg PO DAILY@08 04/04/23 06/06/25 05/19/25 History albuterol sulfate 90 mcg/actuation 2 puff inhalation QID PRN 11/27/24 06/06/25 02/24/25 Rx aerosol inhaler Shortness Of Breath #8.5 grams albuterol sulfate 2.5 mg/3 mL 2.5 mg inhalation QID PRN 02/25/25 06/06/25 Unknown History (0.083 %) solution for nebulization Shortness Of Breath cetirizine 10 mg tablet 10 mg PO DAILY 02/25/25 06/06/25 05/19/25 History cilostazol 100 mg tablet 100 mg PO BID 02/25/25 06/06/25 05/19/25 History clopidogrel 75 mg tablet 75 mg PO DAILY 02/25/25 06/06/25 05/19/25 History isosorbide mononitrate 30 mg 30 mg PO DAILY 02/25/25 06/06/25 05/19/25 History tablet,extended release 24 hr pantoprazole 40 mg tablet,delayed 40 mg PO DAILY 02/25/25 06/06/25 05/19/25 History release rosuvastatin 40 mg tablet 40 mg PO BEDTIME 02/25/25 06/06/25 05/18/25 History alprazolam 0.25 mg tablet 0.25 mg PO Q6H PRN Anxiety 05/19/25 06/06/25 Unknown History lorazepam 0.5 mg tablet (Ativan) 0.5 mg PO Q4H PRN 05/19/25 06/06/25 Unknown History restlessness/anxiety apixaban 5 mg tablet (Eliquis) 5 mg PO BID@0900,2099 90 days #90 05/24/25 06/06/25 Unknown Rx tabs metoprolol tartrate 25 mg tablet 25 mg PO BID@0900,2099 90 days #90 05/24/25 06/06/25 Unknown Rx tabs fluticasone fur. 100 mcg-umeclid 1 inh inhalation Q24H #28 ea 06/06/25 06/06/25 Unknown Rx 62.5 mcg-vilant 25 mcg inhalat.powder (Trelegy Ellipta) nicotine 21 mg/24 hr daily 1 patch transdermal DAILY #28 ea 06/06/25 06/06/25 Unknown Rx transdermal patch Allergies Allergy/AdvReac Type Severity Reaction Status Date / Time diphenhydramine (From Allergy Intermediate ALGY-Hives Verified 06/06/25 10:43 Benadryl) sulfabenzamide Allergy Intermediate swelling Verified 06/06/25 10:43 PFSH Acute PFSH: Medical History Pulmonary infiltrates Obstructive sleep apnea Acute exacerbation of chronic obstructive pulmonary disease Peripheral arterial disease Benign essential HTN Viral pneumonia Influenza Hypoxia Acute bronchitis Acute on chronic respiratory failure with hypoxia and hypercapnia Grade III diastolic dysfunction MURILLO (dyspnea on exertion) Atherosclerosis of coronary artery Hypertension Adult hypothyroidism Mixed hyperlipidemia Dyspnea on exertion Malaise and fatigue Chronic obstructive asthma with exacerbation Emphysema/COPD GERD (gastroesophageal reflux disease) Back pain Palpitations Hypothyroidism [place]'s palsy Hx of hyperlipidemia Anxiety Hx of breast cancer CAD (coronary artery disease) History of hypertension PAD (peripheral artery disease) Syncope Bilateral carotid artery stenosis without cerebral infarction Surgical History H/O tubal ligation History of cholecystectomy Status post carotid endarterectomy Family History Mother Lung disease Family/Other Cancer Grandmother CAD (coronary artery disease) Stroke Father Bleeding disorder Denies family history of Diabetes Clotting disorder Dementia Chronic kidney disease (CKD) Suicide Anesthesia complication Social History Smoking and tobacco/nicotine status: current every day tobacco/nicotine user (1/2 ppd X 58 years. ) cigarettes Packs smoked per day: 1 Years cigarettes smoked: 31 [ Other cigarette details: Started at age 22] Alcohol intake: never Substance/Drug Use: never Vitals/I&O/Wt Last Vital Signs Temp 98.1 F 06/09/25 19:59 Pulse 114 H 06/10/25 03:43 Resp 22 H 06/10/25 03:43 BP 139/85 06/10/25 03:43 Pulse Ox 94 06/10/25 03:43 O2 Del Method Nasal Cannula 06/10/25 03:43 O2 Flow Rate 5 06/10/25 03:43 06/09/25 06/09/25 06/10/25 14:59 22:59 06:59 Intake Total 18.75 / 18.75 Balance 18.75 / 18.75 Weight last 48 hrs Weight 71.214 kg Physical Exam Narrative: Patient seen and evaluated feeling a little bit better with care at the gave her in the emergency room for atrial fibrillation with rapid ventricular rate and bilateral pneumonia HEENT normocephalic atraumatic neck neck is supple cardiovascular heart rate is regular lungs are pretty much clear abdomen soft nontender nondistended unremarkable extremities are intact no edema has good pulses neurology has no focality lab studies lab studies reviewed and noted. Data 06/09/25 22:29 06/09/25 22:29 A&P Assessment and plan 1. Bilateral pneumonia: 2. Hypoxemia: 3. Atrial fibrillation with rapid ventricular response: 4. Constipation: 5. Chronic hypoxic respiratory failure, on home oxygen therapy: 6. Hypokalemia: Plan: #1 Bilateral pneumonia Healthcare associated -Admit to cardiac stepdown unit because of atrial fibrillation with rapid ventricular rate on Cardizem drip - Patient recently admitted and treated for COPD exacerbation 2 weeks ago in the hospital inpatient discharged home -Patient Deondre presenting to the emergency room with shortness of breath and palpitation with workup Showing new bilateral pneumonia - Treat with vancomycin and Zosyn because of healthcare associated pneumonia - Optimize care because patient also has COPD exacerbation that is reactive to infection - Continue nebulizing treatment - No steroid is needed at this time patient is not wheezing - Patient is maintaining with 5 L of oxygen the way she was at home - Continue to monitor and optimize - It would be okay to get sputum and stain for cultures with Gram stain's #2 Atrial fibrillation with rapid ventricular rate - Patient in cardiac stepdown unit - Continue Cardizem drip - Patient had a dose of digoxin - Patient is responding heart rate had come down from 140 rapid ventricular rate to 120s #3 COPD exacerbation - Reactive this time because of underlining infection - Continue to treat the primary cause for infection - Continue nebulizing treatment and antibiotics as ordered #4 Constipation - Patient had not moved bowel much usually moves every day. Patient said that he she had had ongoing constipation - I have ordered lactulose 20 g orally twice a day until bowel is cleaned out. And then patient can continue with Colace 100 mg twice daily for maintenance #5 Hypokalemia Replaced Follow interval lab studies and optimize accordingly #6 Chronic home oxygen use at 5 L - Maintain care should the patient need more oxygen must follow through and optimize PDMP PDMP Reviewed: Last Reviewed 06/10/25 05:13 by Britney Robles MD Attestations Medical Necessity Statement*: Patient with bilateral pneumonia hypoxemia shortness of breath with atrial fibrillation with rapid ventricular rate meets inpatient criteria and will need at least 2 midnights for care optimization Coding Level of Care Code 94632 Diagnoses Bilateral pneumonia J18.9 Hypoxemia R09.02 Atrial fibrillation with rapid ventricular response I48.91 Constipation K59.00 Chronic hypoxic respiratory failure, on home oxygen therapy J96.11; Z99.81 Hypokalemia E87.6 Time Spent (min) 60
[2025-06-10 04:54] LABS: Troponin 5 6HR 17.71 ng/L (0-10); Troponin 5 6HR Delta 3.71 ng/L (0-12)
[2025-06-10] MEDS: piperacillin-tazobactam 3.375 GM in sodium chloride 0.9% (plus) 50 ML IV ×3 (05:16→20:20)
[2025-06-10] MEDS: heparin 5,000 unit/mL INJ 1 mL 5000 UNIT SUBCUT (05:17)
[2025-06-10] MEDS: digoxin 250 mcg/ml INJ 2 mL 125 MCG IVP (05:17)
--- NOTE | 2025-06-10 07:04 | PHA.VACGOAL ---
Vancomycin Goal - Goal Vancomycin Goal:: 15-20 mg/L Vancomycin Indication:: Pneumonia - Therapy Current therapy:: Pip/Tazo Day of therpy:: Day []of [] . Actual body weight (kg): 160 lb 1.6 oz - Data Labs: WBC 6.67 10^3/uL (3.29-11.43) 06/09/25 22: RBC 4.73 10^6/uL (3.85-5.65) 06/09/25 22: Hgb 11.70 g/dL (11.27-16.99) 06/09/25 22: Hct 36.4 % (36-47) 06/09/25 22: MCV 77.0 fl (85-98) L 06/09/25 22: MCH 24.7 pg (27-33) L 06/09/25 22: MCHC 32.1 g/dL (30-55) 06/09/25 22: RDW 15.9 % (12.1-15.1) H 06/09/25 22:29 Sodium 138 mmol/L (136-145) 06/09/25 22: Potassium 2.9 mmol/L (3.5-5.1) L 06/09/25 22: Chloride 97 mmol/L (98-107) L 06/09/25 22: Carbon Dioxide 28 mmol/L (22-29) 06/09/25 22: Anion Gap 15.9 (5-19) 06/09/25 22:29 BUN 4 mg/dL (8-23) L 06/09/25 22: Creatinine 1.2 mg/dL (0.5-0.9) H 06/09/25 22:29 GFR Calculation Not Reportable 06/09/25: Last dialysis session:: N/A Treatment plan:: new consult Regimen:: 1250 MG LOADING DOSE GIVEN X 1 IN ER MAINTENANCE DOSE OF 1000 MG Q24H PER DOSING PROTOCOL Follow up:: WILL CONTINUE TO MONITOR AND FOLLOW UP DAILY
--- NOTE | 2025-06-10 09:13 | PC.NURSE ---
patient asked for something to help her have a bowel movement. Lactulose was order but I was concerned about her low potassium of 2.[address] Pineda who gave orders for senna. Order entered by nurse.
--- NOTE | 2025-06-10 09:18 | PC.PHAR ---
Pt unable to verify her medications. Med Rec completed via [facility] and [facility].
[2025-06-10] MEDS: sennosides-docusate Tablet 1 TAB PO (14:28)
[2025-06-10 15:14] LABS: Anion Gap 12.5 (5-19); Blood Urea Nitrogen 5 mg/dL (8-23); Calcium 9.0 mg/dL (8.5-10.5); Carbon Dioxide 28 mmol/L (22-29); Chloride 104 mmol/L (98-107); Creatinine Clr Calc Pharmacy 47.0243; Glucose 96 mg/dL (65-115); Osmolality Calculated 287 mOsm/kg (285-295); Potassium 4.5 mmol/L (3.5-5.1); Sodium 140 mmol/L (136-145)
--- NOTE | 2025-06-10 22:20 | P.PN_ITS ---
Subjective 2 Subjective: the patient was seen in the morning, and was feeling much better. did not report any palpitations or any chest pain. at baseline home o2 at 4-5L/min through NC Vitals/I&O/Wt Last Vital Signs Temp 97.3 F L 06/10/25 19:15 Pulse 74 06/10/25 19:15 Resp 23 H 06/10/25 19:15 BP 165/70 06/10/25 19:15 Pulse Ox 99 06/10/25 19:15 O2 Del Method Nasal Cannula 06/10/25 19:15 O2 Flow Rate 5 06/10/25 19:15 06/10/25 06/10/25 06/10/25 06:59 14:59 22:59 Intake Total 632.125 / 456.568 5473.667 / 1396.667 290 / 1686.667 Balance 632.125 / 065.618 8507.667 / 1396.667 290 / 1686.667 Weight last 48 hrs Weight 72.62 kg Weight 71.214 kg Weight 71.214 kg Physical Exam 2 Narrative: general: alert oriented to time place and person, able to speak in full sentences on 5L NC oxygen with sats above 99% which is above the required range for her. Cardio: irregularly irregular rate rhythm, norml rate, S1 and S2 normal without any added sounds, no added sounds appreciated, normal JVD Pulmonary system: bilateral mild diffuse exp wheeze heard, adequate equal air entry, no crackles appreciated Neuro: gross normal neurological exam extremeties: mild trace edema, no bruising, no cyanosis skin: normal capillary refill, no mottling, pallor +justine Data 06/09/25 22:29 06/10/25 14:37 A&P Assessment and plan 1. Bilateral pneumonia: 2. Hypoxemia: 3. Atrial fibrillation with rapid ventricular response: 4. Constipation: 5. Chronic hypoxic respiratory failure, on home oxygen therapy: 6. Hypokalemia: 7. Hypothyroidism: 8. Coronary artery disease: 9. Peripheral arterial disease: 10. Mixed hyperlipidemia: 11. Bilateral carotid artery stenosis without cerebral infarction: Plan: Bilateral pneumonia Healthcare associated, considering she has been recently discharged 2 weeks ago - continue with vancomycin and Zosyn because of healthcare associated pneumonia and later descalate accordingly based on clinical condition of the patient - send for blood and sputum cultures and follow results, previous admission blood cultures showed staph hominis in one bottle and possible contaminant however she was discharged on levofloxacin which also covered the same organism - Patient is maintaining with 5 L of oxygen the way she was at home - Continue to monitor and optimize Atrial fibrillation with rapid ventricular rate - telemetry monitoring - off cardizem drip and continue on digoxin and home dose of metoprolol 25mg bid - HR is controlled and cont to monitor - Cont home dose apixaban 5mg bid - cardio input since the patient had uncontrolled at fib in the last admission and was started on amiodarone and had another at fib episode requiring hosp admission and the admitting physician kept on digoxin?, therefore will benefit from further input from cardio. COPD: home o2 dependent - cont nebs with levo alb and ipratropium - not in exacerbation since her O2 requirements are at home level - cont o2 therapy with 5L NC and keep O2 in the range of 88-92% Constipation - Patient had as large bowel motion today - avoid lactulose since it can lead to gaseous distention - senna daily to be added Hypokalemia: resolved monitor and correct electrolytes accordingly Hypothyroidism: cont home evothyroxine 50mcg daily, recent TSH in Apr normal CAD/PAD: cont cilostazol and clopidogrel to continue HLD: cont atorvastatin 40mg daily PDMP PDMP Reviewed: Not Reviewed Attestations 2 Medical Necessity Statement*: Cinthia Palacios's hospital stay will require greater than 2 midnights for her management for at fib, HAP and further optimisation of her comorbid conditions Time Spent in Patient Care: 16 - 35 minutes (>than 50% of time sp ent in counselling and/or direct pt care on unit) . Other Attestations: Patient condition has been discussed at length with the patient/family, I have independently reviewed the chart labs imaging and diagnostics and EKG. the goals of care and code status with the patient/family/NOK/legal care support representative, and documented accordingly. The patient/family has been informed about the current condition and further plan of care. Agreed with the plan of care and understood without any language barrier. Every effort was made to ensure accuracy of patient care provider. Any obvious errors or omissions should be clarified with the author of the document. Coding Level of Care Code 41095 Diagnoses Bilateral pneumonia J18.9 Hypoxemia R09.02 Atrial fibrillation with rapid ventricular response I48.91 Constipation K59.00 Chronic hypoxic respiratory failure, on home oxygen therapy J96.11; Z99.81 Hypokalemia E87.6 Hypothyroidism E03.9 Coronary artery disease I25.10 Peripheral arterial disease I73.9 Mixed hyperlipidemia E78.2 Hyperlipidemia type: mixed hyperlipidemia Bilateral carotid artery stenosis without cerebral infarction I65.23
--- NOTE | 2025-06-10 23:40 | PC.NURSE ---
Patient asking for PRN breathing treatment. Notified RT. A few minutes later patient called for nurse. She was agitated and cussing at nurse because RT had not shown up immediately. Explained to patient that breathing treatments were scheduled Q4 PRN, and that it had not quite been 4 hours since her last one. Assured patient that RT had been notified and would administer breathing treatment as ordered.
[2025-06-11] VITALS (13 sets, daily range): BP systolic 120–161; BP diastolic 58–96; PULSE 54–83; RESP 18–30; TEMP 36.3–36.7; O2SAT 90–98; BMI 30.6
[2025-06-11 03:32] LABS: Hematocrit 36.5 % (36-47); Hemoglobin 11.00 g/dL (11.27-16.99); Mean Corpuscular HGB Conc 30.1 g/dL (30-55); Mean Corpuscular Hemoglobin 24.1 pg (27-33); Mean Corpuscular Volume 79.9 fl (85-98); Nucleated Red Blood Cells % 0 %; Platelet Count 356 10^3/cmm (157-399); Red Blood Count 4.57 10^6/uL (3.85-5.65); White Blood Count 6.48 10^3/uL (3.29-11.43)
[2025-06-11 03:49] LABS: Alanine Aminotransferase 10 U/L (0-33); Albumin Level 3.4 g/dL (3.5-5.2); Alkaline Phosphatase 102 U/L (35-105); Anion Gap 13.1 (5-19); Aspartate Amino Transferase 16 U/L (0-32); Blood Urea Nitrogen 6 mg/dL (8-23); Calcium 8.9 mg/dL (8.5-10.5); Carbon Dioxide 28 mmol/L (22-29); Chloride 105 mmol/L (98-107); Creatinine Clr Calc Pharmacy 47.0243; Globulin 3.1 g/dL (1.3-4.6); Glucose 99 mg/dL (65-115); Magnesium 2.5 mg/dL (1.7-2.3); Osmolality Calculated 292 mOsm/kg (285-295); Potassium 4.1 mmol/L (3.5-5.1); Sodium 142 mmol/L (136-145); Total Protein 6.5 g/dL (6.6-8.7)
[2025-06-11] MEDS: piperacillin-tazobactam 3.375 GM in sodium chloride 0.9% (plus) 50 ML IV (05:10)
--- NOTE | 2025-06-11 10:12 | PC.CHAP ---
Pastoral Care Encounter/Spiritual Assessment Type of Contact [] Declined staffing program manager visit [] Patient/Family/Request visit [] Outpatient visit [] Follow-up visit [] Physician referral [] Code/Alert [] Routine visit [] Staff referral [] Actively dying [] Patient sleeping [] Family support [] [] Out of room [] Palliative care [] [x] Receiving care in room [] Pre-surgical visit [] Trauma [] Long length of stay [] ICU visit [] Other: Relational/Emotional Strength [] Patient feels connected with others/family/visitors/staff [] Distress [] Loneliness/isolation [] Abandonment Spirituality of Patient [] Person of [place] [] Attends Yarsanism of their [place] [] Believes in Prayer [] Reads Bible or Sikhism materials [] There are Spiritual issues to be addressed Premium Auditor Interventions [] Prayer [] Active listening [] Non-anxious presence [] Spiritual/emotional support [] Crisis/trauma care [] Spiritual counseling [] Bereavement support [] Provided bereavement packet [] Provided Bible/devotional materials [] Provided toy/stuffed animal, coloring book to patient or family member [] Provided Communion [] Anointing/[place] [] Salvation [] Completed spiritual assessment [] Other: Impact on Illness or Injury [] Angry [] Fearful [] Anxious [] Often cries [] Exhaustion [] Unable to work [] Unable to attend confucianist [] Unable to walk/stand [] Unable to read [] Unable to drive [] Unable to eat/drink [] Unable to sleep [] Unable to be with family [] Patient intubated [] Other: Summary Time spent with patient
--- NOTE | 2025-06-11 11:11 | P.PN_ITS ---
Subjective 2 Subjective: Patient was seen in the morning she was relatively better than the time of admission however she reported mild weakness. She saturating well at her baseline requirement of home oxygen 5 L/Minute nasal cannula with oxygen saturation above 98%, target oxygen sats 88 to 92% and to titrate and wean oxygen accordingly based on her COPD indication Vitals/I&O/Wt Last Vital Signs Temp 98.0 F 06/11/25 07:13 Pulse 66 06/11/25 07:53 Resp 18 06/11/25 07:53 BP 152/96 06/11/25 03:20 Pulse Ox 96 06/11/25 07:53 O2 Del Method Nasal Cannula 06/11/25 07:53 O2 Flow Rate 5 06/11/25 07:53 FiO2 5 06/11/25 00:00 06/10/25 06/11/25 06/11/25 22:59 06:59 14:59 Intake Total 290 / 1686.667 50 / 1736.667 660 / 660 Output Total 300 / 300 Balance 290 / 1686.667 50 / 1736.667 360 / 360 Weight last 48 hrs Weight 73.437 kg Weight 72.62 kg Weight 71.214 kg Weight 71.214 kg Physical Exam 2 Narrative: general: alert oriented to time place and person, able to speak in full sentences on 5L NC oxygen with sats above 99% which is above the required range for her. Cardio: irregularly irregular rate rhythm, norml rate, S1 and S2 normal without any added sounds, no added sounds appreciated, normal JVD Pulmonary system: bilateral mild diffuse exp wheeze heard, adequate equal air entry, no crackles appreciated Neuro: gross normal neurological exam extremeties: mild trace edema, no bruising, no cyanosis skin: normal capillary refill, no mottling, pallor +justine Data 06/11/25 03:01 06/11/25 03:01 Micro: Microbiology 06/10/25 22:50 Blood Culture - Preliminary Blood SPECIMEN COLLECTED 06/10/25 22:50 Blood Culture - Preliminary Blood SPECIMEN COLLECTED A&P Assessment and plan 1. Bilateral pneumonia: 2. Hypoxemia: 3. Atrial fibrillation with rapid ventricular response: 4. Constipation: 5. Chronic hypoxic respiratory failure, on home oxygen therapy: 6. Hypokalemia: 7. Hypothyroidism: 8. Coronary artery disease: 9. Peripheral arterial disease: 10. Mixed hyperlipidemia: 11. Bilateral carotid artery stenosis without cerebral infarction: 12. Encounter for screening involving social determinants of health (SDoH): 13. Microcytic anemia: Plan: Bilateral pneumonia Healthcare associated, considering she has been recently discharged 2 weeks ago before this admission - the patient was started on vancomycin and zosyn, based on the guidelines and prior antibiotics use, to switch zosyn to meropenem and cont vanc - follow up blood and sputum cultures and follow results ( of note: previous admission blood cultures showed staph hominis in one bottle and possible contaminant however she was discharged on levofloxacin which also covered the same organism ) - Patient is maintaining with 5 L of oxygen the way she was at home and titrate accordinlgy for o2 sats: 88-92% - Continue to monitor and optimize Atrial fibrillation with rapid ventricular rate - telemetry monitoring - having bradycardia, reduce the dose of metoprolol to 12.5mg bid - continue amio 200mg daily, one reading of HR is less than 60 however rest of the readings are in 60s and 70s, if HR less than 60 then hold it - Cont home dose apixaban 5mg bid - delta trop not significant - cardio input if the pt HR is fluctuating, or labile. cont on BB and amiodarine meanwhile - reconcile meds for polypharmacy COPD: home o2 dependent - cont nebs with duonebs - not in exacerbation since her O2 requirements are at home level - cont o2 therapy with 5L NC and keep O2 in the range of 88-92% Constipation: resolved - avoid lactulose since it can lead to gaseous distention - senna daily to be added Electrolyte imbalance: Hypokalemia: resolved monitoring and correction of electrolytes accordingly monitor and correct electrolytes accordingly Hypothyroidism: cont home evothyroxine 50mcg daily, recent TSH in Apr normal CAD/PAD: cont cilostazol and clopidogrel to continue HLD: cont atorvastatin 40mg daily Social determinants of health concerns: nurse outreach case manager involved, and patient was recently discharged from hospice and had 2 admissions in last 30 days, concerning her health, overal advanced COPD, and recurrent admissions, considering hospice care and to be discussed with the patient Microcytic anemia: iron profile, vit b12 and folate monitor cbc Smoking cessation: emphasis on smoking abstinence nicotine patch VTE: apixaban diet: cardio PDMP PDMP Reviewed: Not Reviewed Attestations 2 Medical Necessity Statement*: Cinthia Palacios's hospital stay will require greater than 2 midnights for her management for at fib, HAP and further optimisation of her comorbid conditions Time Spent in Patient Care: 16 - 35 minutes (>than 50% of time sp ent in counselling and/or direct pt care on unit) . Other Attestations: Patient condition has been discussed at length with the patient/family, I have independently reviewed the chart labs imaging and diagnostics and EKG. the goals of care and code status with the patient/family/NOK/legal treasury representative, and documented accordingly. The patient/family has been informed about the current condition and further plan of care. Agreed with the plan of care and understood without any language barrier. This documentation was created by [employer] supervisor scrap preparation software. Every effort was made to ensure accuracy of supervisor scrap preparation. Any obvious errors or omissions should be clarified with the author of the document. Coding Level of Care Code 00446 Diagnoses Bilateral pneumonia J18.9 Hypoxemia R09.02 Atrial fibrillation with rapid ventricular response I48.91 Constipation K59.00 Chronic hypoxic respiratory failure, on home oxygen therapy J96.11; Z99.81 Hypokalemia E87.6 Hypothyroidism E03.9 Coronary artery disease I25.10 Peripheral arterial disease I73.9 Mixed hyperlipidemia E78.2 Hyperlipidemia type: mixed hyperlipidemia Bilateral carotid artery stenosis without cerebral infarction I65.23 Encounter for screening involving social determinants of health (SDoH) Z13.9 Microcytic anemia D50.9
--- NOTE | 2025-06-11 11:43 | PC.NURSE ---
dr lira wants o2 sat btween 88-92%.RT notified.O2 turned down to 3L per [place]
[2025-06-11] MEDS: MEROPENEM 2,000 MG in sodium chloride 0.9% (plus) 50 ML 100 MG IV ×2 (12:48→20:28)
[2025-06-11 13:01] LABS: Ferritin 58 ng/mL (15-150); Iron 36 ug/dL (37-145)
[2025-06-11 13:15] LABS: Vitamin B12 790 pg/mL (232-1245)
--- NOTE | 2025-06-11 17:10 | ECG_ITS ---
[facility] Pat Name: Cinthia Palacios Department: Room: 106 Gender: Female [employer] Operation: : 1955 Requested By: Judy Pineda Order Number: [id number] Shana MD: Marilyn Moore M.D. Measurements Intervals [place] Rate: 61 P: 61 GA: 150 QRS: 61 QRSD: 82 T: 68 QT: 446 QTc: 452 Interpretive Statements SINUS RHYTHM LOW QRS VOLTAGE IN PRECORDIAL LEADS [QRS DEFLECTION < 1.0 mV IN CHEST LEADS] MINIMAL ST DEPRESSION [0.025+ mV ST DEPRESSION] Compared to ECG 06/09/2025 23:11:17 Low QRS voltage now present ST (T wave) deviation now present Atrial fibrillation no longer present Ventricular premature complex(es) no longer present Aberrant conduction of supraventricular beat(s) no longer present T-wave abnormality no longer present Electronically Signed On 06-11-2025 17:56:22 CDT by Marilyn Moore M.D. [email or web address] [email or web address]
[2025-06-11] MEDS: ondansetron 2 mg/ML SDV 2 mL 4 MG IVP (18:44)
--- NOTE | 2025-06-11 21:00 | ECG_ITS ---
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 Measurements Intervals [place] Rate: 61 P: 38 W[place]: 136 QRS: 66 QRSD: 76 T: 57 QT: 420 QTc: 424 Interpretive Statements SINUS RHYTHM ANTEROSEPTAL MYOCARDIAL INFARCTION , OF INDETERMINATE AGE [40+ ms Q WAVE IN V1-V4] Nonspecific ST changes Compared to ECG 06/11/2025 17:10:18 Myocardial infarct finding now present ST (T wave) deviation no longer present Electronically Signed On 06-12-2025 13:56:42 CDT by Marilyn Moore M.D. [email or web address]
[2025-06-12] VITALS (11 sets, daily range): BP systolic 118–172; BP diastolic 59–88; PULSE 55–99; RESP 16–30; TEMP 36.4–37.1; O2SAT 93–97
[2025-06-12 04:04] LABS: Hematocrit 37.3 % (36-47); Hemoglobin 11.50 g/dL (11.27-16.99); Mean Corpuscular HGB Conc 30.8 g/dL (30-55); Mean Corpuscular Hemoglobin 24.4 pg (27-33); Mean Corpuscular Volume 79.2 fl (85-98); Nucleated Red Blood Cells % 0 %; Platelet Count 380 10^3/cmm (157-399); Red Blood Count 4.71 10^6/uL (3.85-5.65); White Blood Count 6.87 10^3/uL (3.29-11.43)
[2025-06-12] MEDS: MEROPENEM 2,000 MG in sodium chloride 0.9% (plus) 50 ML 100 MG IV (04:14)
[2025-06-12] MEDS: ondansetron 2 mg/ML SDV 2 mL 4 MG IVP (04:15)
[2025-06-12 04:30] LABS: Alanine Aminotransferase 10 U/L (0-33); Albumin Level 3.5 g/dL (3.5-5.2); Alkaline Phosphatase 102 U/L (35-105); Anion Gap 15.5 (5-19); Aspartate Amino Transferase 15 U/L (0-32); Blood Urea Nitrogen 7 mg/dL (8-23); Calcium 9.1 mg/dL (8.5-10.5); Carbon Dioxide 29 mmol/L (22-29); Chloride 103 mmol/L (98-107); Creatinine Clr Calc Pharmacy 52.4175; Globulin 3.1 g/dL (1.3-4.6); Glucose 79 mg/dL (65-115); Osmolality Calculated 295 mOsm/kg (285-295); Potassium 3.5 mmol/L (3.5-5.1); Sodium 144 mmol/L (136-145); Total Protein 6.6 g/dL (6.6-8.7)
--- NOTE | 2025-06-12 10:04 | PC.CHAP ---
Pastoral Care Encounter/Spiritual Assessment Type of Contact [] Declined appointment manager visit [] Patient/Family/Request visit [] Outpatient visit [] Follow-up visit [] Physician referral [] Code/Alert [x] Routine visit [] Staff referral [] Actively dying [] Patient sleeping [] Family support [] [] Out of room [] Palliative care [] [] Receiving care in room [] Pre-surgical visit [] Trauma [] Long length of stay [] ICU visit [] Other: Relational/Emotional Strength [x] Patient feels connected with others/family/visitors/staff [] Distress [] Loneliness/isolation [] Abandonment Spirituality of Patient [x] Person of [place] [] Attends Confucianist of their [place] [x] Believes in Prayer [] Reads Bible or Alevism materials [] There are Spiritual issues to be addressed Speech Language Pathologist Assistant Interventions [x] Prayer [x] Active listening [] Non-anxious presence [x] Spiritual/emotional support [] Crisis/trauma care [] Spiritual counseling [] Bereavement support [] Provided bereavement packet [] Provided Bible/devotional materials [] Provided toy/stuffed animal, coloring book to patient or family member [] Provided Communion [] Anointing/Independence [] Salvation [x] Completed spiritual assessment [] Other: Impact on Illness or Injury [] Angry [] Fearful [] Anxious [] Often cries [] Exhaustion [] Unable to work [] Unable to attend mandaeism [] Unable to walk/stand [] Unable to read [] Unable to drive [] Unable to eat/drink [] Unable to sleep [] Unable to be with family [] Patient intubated [] Other: Summary Time spent with patient 5 min
--- NOTE | 2025-06-12 11:37 | P.DS_ITS ---
Discharge Providers Date of Admission: 06/10/25 02:03 Date of Discharge: June 12, 2025 Attending Provider at Admission: Britney Robles MD Attending Provider at Discharge: Judy Pineda MD Primary Care Provider: Katie Dobbs Diagnoses at Discharge Discharge Diagnosis 1. Bilateral pneumonia: 2. Hypoxemia: 3. Atrial fibrillation with rapid ventricular response: 4. Constipation: 5. Chronic hypoxic respiratory failure, on home oxygen therapy: 6. Hypokalemia: 7. Hypothyroidism: 8. Coronary artery disease: 9. Peripheral arterial disease: 10. Mixed hyperlipidemia: 11. Bilateral carotid artery stenosis without cerebral infarction: 12. Encounter for screening involving social determinants of health (SDoH): 13. Microcytic anemia: Reason for Visit Reason for Visit: Sick to stomach, feet swollen Brief History: As per the previous admitting physician/retrospective notes/patient: Cinthia Palacios is a 70 year old female with medical history significant for COPD and exacerbation. Recently patient is not being evaluated for sleep studies because of noted obstructive sleep apnea patient was stopped breathing whenever she is sleeping. This patient was admitted and treated inpatient 2 weeks ago and finally got discharged after optimizing COPD exacerbation. She had done we ll at home and now representing this time because of shortness of breath and palpitation. At presentation patient had rapid ventricular rates from atrial fibrillation in the 140s chest x-ray were significant for bilateral pneumonia. Hospital Course Hospital Course During her hospital stay the chest x-ray showed possible bilateral atelectasis with differential diagnosis of pneumonia however comparison to the previous x- ray at the time of discharge in the previous admission more or less the x-ray looks like the same. The patient did not have any increase in her oxygen requirement and she was kept at baseline 5 L which further titrated on 2 to 3 L with saturating in her optimal range of 88 to 92%. She was having rapid heart rate secondary to atrial fibrillation with RVR and was started on Cardizem drip and was given digoxin. He was started on antibiotics Zosyn and vancomycin which were further changed accordingly to hospital-acquired pneumonia protocol to meropenem and vancomycin. MRSA was sent which was negative therefore vancomycin was held. Follow-up blood cultures were negative. Sputum cultures were pending but after review from the microbiology lab it only has oral gloria. The patient heart rate improved and she was actually having heart rate in the 60s therefore her metoprolol was reduced to 12.5 mg twice daily. Since the patient was discharged on amiodarone protocol in the last admission therefore digoxin was held and she continued on amiodarone 200 mg daily with adequate response. Her heart rate was controlled and her overall condition stabilized. She was managed for her COPD with DuoNebs and oxygen therapy as per protocol. She was also having constipation which resolved after giving laxatives. Rest of the medications were given as per her home regimen for her comorbidities. Her electrolytes and renal functions were monitored and corrected accordingly. The patient after review of her imaging studies, EKG, telemetry and other lab works stability was established and discharged on antibiotics for 5 days in total. Adequate referrals and follow-ups provided. manager project management also informed about her debilitating condition secondary to her advanced COPD and other comorbidities since she was previously under hospice and was discharged recently and came with recurrent admissions in the last 20 to 30 days. Patient condition has been discussed at length with the patient/family, I have independently reviewed the chart labs imaging/diagnostics/EKG. the goals of care and code status with the patient/family/NOK/legal environmental marketing representative, and documented accordingly. The patient/family has been informed about the current condition and further plan of care. Agreed with the plan of care and understood without any language barrier. Every effort was made to ensure accuracy of federal district law clerk. Any obvious errors or omissions should be clarified with the author of the document. Physical Exam Narrative: general: alert oriented to time place and person, able to speak in full sentenc es on 3L NC oxygen with sats around early 90s Cardio: irregularly irregular rate rhythm, norml rate, S1 and S2 normal without any added sounds, no added sounds appreciated, normal JVD Pulmonary system: bilateral mild diffuse exp wheeze heard, adequate equal air entry, no crackles appreciated Neuro: gross normal neurological exam extremeties: mild trace edema, no bruising, no cyanosis skin: normal capillary refill, no mottling, mild pallor +jusitne Discharge Data Studies Completed and Pending Completed Studies During Hospitalization Category Date Time Status XR KUB portable [id number] Stat Exams 06/09/25 22:19 Completed XR chest 1V portable [id number] Urgent Exams 06/09/25 21:31 Completed Pending at discharge Category Date Time Status Blood Culture Stat Lab 06/10/25 22:50 Results Sputum Culture Routine Lab 06/11/25 13:10 Received Vancomycin Trough Timed Lab 06/13/25 05:00 Ordered Radiology Impressions Chest X-Ray 06/09/25 21:31 IMPRESSION: 1. Hazy opacities in the bilateral lower lungs, differential includes aspiration, infection or atelectasis 2. No free air underneath the diaphragm to suggest pneumoperitoneum on this upright chest radiograph. KUB X-Ray 06/09/25 22:19 IMPRESSION: No dilated loops of bowel. There is lucency in the left upper quadrant which can not be definitively attributed to loop of bowel. This appearance may be due to superimposition of structures. If there is clinical concern for pneumoperitoneum, upright radiographs or cross-sectional imaging could be considered. Laboratory Results WBC 6.87 10^3/uL (3.29-11.43) 06/12/25 03:31 RBC 4.71 10^6/uL (3.85-5.65) 06/12/25 03:31 Hgb 11.50 g/dL (11.27-16.99) 06/12/25 03:31 Hct 37.3 % (36-47) 06/12/25 03:31 MCV 79.2 fl (85-98) L 06/12/25 03:31 MCH 24.4 pg (27-33) L 06/12/25 03:31 MCHC 30.8 g/dL (30-55) 06/12/25 03:31 RDW 16.3 % (12.1-15.1) H 06/12/25 03:31 Plt Count 380 10^3/cmm (157-399) 06/12/25 03:31 MPV 9.3 fL (7.4-10.4) 06/12/25 03:31 Neut % (Auto) 68.1 % 06/12/25 03:31 Lymph % (Auto) 19.5 % 06/12/25 03:31 [place] % (Auto) 7.7 % 06/12/25 03:31 Eos % (Auto) 3.5 % 06/12/25 03:31 Baso % (Auto) 0.9 % 06/12/25 03:31 Neut # (Auto) 4.68 10^3/uL (1.8-7.7) 06/12/25 03:31 Lymph # (Auto) 1.3 10^3/uL (0.8-4.8) 06/12/25 03:31 [place] # (Auto) 0.5 10^3/uL (0.2-0.9) 06/12/25 03:31 Eos # (Auto) 0.2 10^3/uL (0.0-0.8) 06/12/25 03:31 Baso # (Auto) 0.1 10^3/uL (0.0-0.1) 06/12/25 03:31 Nucleated RBC % (auto) 0 % 06/12/25 03:31 Nucleated RBCs # 0.0 /100WBC 06/12/25 03:31 Sodium 144 mmol/L (136-145) 06/12/25 03:31 Potassium 3.5 mmol/L (3.5-5.1) 06/12/25 03:31 Chloride 103 mmol/L (98-107) 06/12/25 03:31 Carbon Dioxide 29 mmol/L (22-29) 06/12/25 03:31 Anion Gap 15.5 (5-19) 06/12/25 03:31 BUN 7 mg/dL (8-23) L 06/12/25 03:31 Creatinine 0.9 mg/dL (0.5-0.9) 06/12/25 03:31 GFR Calculation Not Reportable 06/12/25 03:31 Glucose 79 mg/dL (65-115) 06/12/25 03:31 Calculated Osmolality 295 mOsm/kg (285-295) 06/12/25 03:31 Calcium 9.1 mg/dL (8.5-10.5) 06/12/25 03:31 Phosphorus 2.5 mg/dL (2.5-4.5) 06/11/25 03:01 Magnesium 2.5 mg/dL (1.7-2.3) H 06/11/25 03:01 Iron 36 ug/dL (37-145) L 06/11/25 03:01 Ferritin 58 ng/mL (15-150) 06/11/25 03:01 Total Bilirubin 0.3 mg/dL (0.15-1.2) 06/12/25 03:31 AST 15 U/L (0-32) 06/12/25 03:31 ALT 10 U/L (0-33) 06/12/25 03:31 Alkaline Phosphatase 102 U/L (35-105) 06/12/25 03:31 Troponin T Baseline 14 ng/L (0-10) H 06/09/25 22:29 Troponin T 120 Minute 15.11 ng/L (0-10) H 06/10/25 00:57 Delta Troponin T 1.11 ABS# (0-10) 06/10/25 00:57 Troponin T Hi Sens 6Hr 17.71 ng/L (0-10) H 06/10/25 04:29 Troponin T Hi Sens 6Hr Delta 3.71 ng/L (0-12) 06/10/25 04:29 C-Reactive Protein 8.7 mg/L (0.0-4.9) H 06/09/25 22:29 NT-Pro-B Natriuret Pep 133 pg/mL (0-125) H 06/09/25 22:29 Total Protein 6.6 g/dL (6.6-8.7) 06/12/25 03:31 Albumin 3.5 g/dL (3.5-5.2) 06/12/25 03:31 Globulin 3.1 g/dL (1.3-4.6) 06/12/25 03:31 Lipase 8 U/L (13-60) L 06/09/25 22:29 Vitamin B12 790 pg/mL (232-1245) 06/11/25 03:01 Folate 18.4 ng/mL (4.8-37.3) 06/09/25 22:29 Urine Color Yellow (Yellow) 06/09/25 22:10 Urine Appearance Clear (CLEAR) 06/09/25 22:10 Urine pH 7.0 (5-7) 06/09/25 22:10 Ur Specific [place] 1.006 (1.005-1.030) 06/09/25 22:10 Urine Protein 2+ (Negative) A 06/09/25 22:10 Urine Glucose (UA) Negative (Normal) 06/09/25 22:10 Urine Ketones Negative (Negative) 06/09/25 22:10 Urine Blood 1+ (Negative) A 06/09/25 22:10 Urine Nitrate Negative (Negative) 06/09/25 22:10 Urine Bilirubin Negative (Negative) 06/09/25 22:10 Urine Urobilinogen 0.2 mg/dL (Negative) 06/09/25 22:10 Ur Leukocyte Esterase Negative (Negative) 06/09/25 22:10 Urine RBC 3-5 /hpf (0-2) 06/09/25 22:10 Urine WBC 0-5 /hpf (0-5) 06/09/25 22:10 Ur Squamous Epith Cells 0-5 /hpf (0-5) 06/09/25 22:10 Amorphous Sediment Not Reportable 06/09/25 22:10 Urine Bacteria None seen /hpf (NONE) 06/09/25 22:10 Hyaline Casts 0-4 /lpf H 06/09/25 22:10 Vitals Last Vital Signs Temp 98 F 06/12/25 04:25 Pulse 60 06/12/25 11:26 Resp 20 H 06/12/25 11:26 BP 172/88 06/12/25 04:25 Pulse Ox 95 06/12/25 11:26 O2 Del Method Nasal Cannula 06/12/25 11:26 O2 Flow Rate 3 06/12/25 11:26 FiO2 5 06/11/25 00:00 Discharge Plan Discharge Patient Disposition: Home Condition: Fair Prescriptions: New metoprolol tartrate 25 mg Tablet 12.5 mg PO BID@0900,2100 60 Days Qty: 6 0RF Continued Trelegy Ellipta 100-62.5-25 mcg blister with device 1 inh inhalation Q24H Qty: 28 6RF nicotine 21 mg/24 hr patch 24 hour 1 patch transdermal DAILY Qty: 28 0RF amiodarone 200 mg tablet See Rx Instructions .ROUTE .COMPLEX Rx Instructions: Take 2 tablets by mouth twice daily for 4 days, then 1 tablet twice daily for 7 days, then 1 tablet daily: thereafter. furosemide 40 mg tablet 40 mg PO DAILY levothyroxine 50 mcg tablet 50 mcg PO DAILY@08 albuterol sulfate 90 mcg/actuation HFA aerosol inhaler 2 puff INHALATION QID PRN (Reason: Shortness Of Breath) Qty: 8.5 5RF cilostazol 100 mg tablet 100 mg PO BID albuterol sulfate 2.5 mg /3 mL (0.083 %) solution for nebulization 2.5 mg inhalation QID PRN (Reason: Shortness Of Breath) isosorbide mononitrate 30 mg tablet extended release 24 hr 30 mg PO DAILY clopidogrel 75 mg tablet 75 mg PO DAILY pantoprazole 40 mg tablet,delayed release (DR/EC) 40 mg PO DAILY rosuvastatin 40 mg tablet 40 mg PO BEDTIME cetirizine 10 mg Tablet 10 mg PO DAILY alprazolam 0.25 mg tablet 0.25 mg PO Q6H PRN (Reason: Anxiety) Eliquis 5 mg Tablet 5 mg PO BID@0900,2100 90 Days Qty: 90 0RF Changed levofloxacin 500 mg tablet 750 mg PO DAILY 5 Days Qty: 5 0RF Discontinued ondansetron 4 mg tablet,disintegrating 4 mg PO Q4H PRN (Reason: Nausea And Vomiting) acetaminophen 500 mg Tablet 500 mg PO Q6H PRN (Reason: Pain) lorazepam [Ativan] 0.5 mg tablet 0.5 mg PO Q4H PRN (Reason: restlessness/anxiety) metoprolol tartrate 25 mg Tablet 25 mg PO BID@0900,2100 90 Days Qty: 90 0RF Discharge Order = DC NOW: Discharge Order (Routine); Ordered 06/12/25 Ordered By: Judy Pineda Referrals: Katie Dobbs PA [Primary Care Provider, Physicians Manager Private] - 06/18/25 10:40 am Robert Dominguez MD [Physician, Cardiology] - 06/21/25 8:30 am Vish Nagel MD [Physician, Pulmonology] - 7-10 days Referral Note: Advanced COPD on home oxygen for further optimum care and management Discharge Diet: Cardiac Discharge Activity: Limit activity as instructed Patient Instructions: Opioid Safety, Patient Portal & Mo Instructions Discharge Attestations Time Spent in Discharge Care*: greater than 30 min Specific Discharge Activities: educating patient, educating and/or supporting family/caregiver, discussing with pcp/other providers, discussing with showcase trimmer/social workers/dc planners, documenting/other paperwork and evaluating patient/reviewing data Time Spent in Smoking Cessation: 3 to 10 minutes Status at Discharge: Cognitive status at discharge: cognitively intact , Behavioral status at discharge: cooperative , Functional status at discharge: other assisted ambulation , Overall status at discharge: patient is back to baseline Quality Metrics Clinical Quality Measures [ No reported AMI, CVA or VTE this stay] Coding Level of Care Code 40056 Diagnoses Bilateral pneumonia J18.9 Hypoxemia R09.02 Atrial fibrillation with rapid ventricular response I48.91 Constipation K59.00 Chronic hypoxic respiratory failure, on home oxygen therapy J96.11; Z99.81 Hypokalemia E87.6 Hypothyroidism E03.9 Coronary artery disease I25.10 Peripheral arterial disease I73.9 Mixed hyperlipidemia E78.2 Hyperlipidemia type: mixed hyperlipidemia Bilateral carotid artery stenosis without cerebral infarction I65.23 Encounter for screening involving social determinants of health (SDoH) Z13.9 Microcytic anemia D50.9
--- NOTE | 2025-06-12 14:26 | PC.NURSE ---
Discharge instructions given and explained.pt verb understanding of instructions.discharged via w/c to exit at 1330.son to drive pt home
== END 2025-06-12 13:30 | disposition home or self-care (01) | DRG 308 ==
LOC: ER 06-10 01:11 → CSU 06-10 02:44
PROVIDERS: Physician Assistant; Admitting Provider Internal Medicine; Emergency Provider Emergency Medicine; PCP Physician Assistant; Visit Provider Student in an Organized Health Care Education/Training Program
DX: I48.91 Unspecified atrial fibrillation (principal); J18.9 Pneumonia, unspecified organism; J44.0 Chronic obstructive pulmonary disease with (acute) lower respiratory infection; J44.1 Chronic obstructive pulmonary disease with (acute) exacerbation; J96.11 Chronic respiratory failure with hypoxia; Z99.81 Dependence on supplemental oxygen; K59.00 Constipation, unspecified; E87.6 Hypokalemia; E03.9 Hypothyroidism, unspecified; I25.10 Atherosclerotic heart disease of native coronary artery without angina pectoris; I73.9 Peripheral vascular disease, unspecified; E78.2 Mixed hyperlipidemia; I65.23 Occlusion and stenosis of bilateral carotid arteries; D50.9 Iron deficiency anemia, unspecified; G47.33 Obstructive sleep apnea (adult) (pediatric); F17.210 Nicotine dependence, cigarettes, uncomplicated; J43.9 Emphysema, unspecified; F41.9 Anxiety disorder, unspecified; Z79.01 Long term (current) use of anticoagulants; K21.9 Gastro-esophageal reflux disease without esophagitis; I10 Essential (primary) hypertension; Z79.02 Long term (current) use of antithrombotics/antiplatelets
CPT/HCPCS: 36415; 51798; 71045; 74018; 80048; 80053; 81001; 82607; 82728; 82746; 83540; 83690; 83735; 83880; 84100; 84484; 85025; 86140; 87040; 87070; 93005; 94640; 96365; 96367; 96372; 96375; 99285; J1160; J1644; J2185; J2405; J2543; J3373; J3480; J3490; J7030; J7040; J7050; J7614; J7644; J9999

== ENCOUNTER 2025-09-17 11:11 | Emergency (ER) | payer OTHER, MEDICARE, SELFPAY ==
[2025-09-17 11:17] VITALS: BP 102/58; PULSE 70; RESP 19; TEMP 36.8; O2SAT 93; BMI 28.3
--- OUTSIDE RECORDS SUMMARY | 2025-09-17 11:18 | XMS_ITS | Encounter Summary ---
Author Organization [facility] Address [address] [place] [address] Care Team Providers Care Professional Services Specialist Name Role Phone Unavailable Primary Care Provider Unavailabl e Encounter Details Date Type Department Care Team (Late st Contact Info) Description 01/17/2017 Lab Requisition [facility] General Laboratory Services [place] [address] [place] [phone] Colin Gómez DO NO ADDRESS ON FILE Social History Tobacco Use Types Packs/Day Years Used Date Smoking Tobacco: Every Day Cigarettes 1 40 Comments Unknown Sex and Gender Information Value Date Recorded Sex Assigned at Not on file 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 Gender Identity Not on file Sexual Orientation [...] - 4.20 uIU/mL 01/18/2017 12:37 AM CDT [facility] Blood 01/17/2017 7:44 PM CDT 01/17/2017 11:47 PM CDT us Colin Gómez DO CHEMISTRY ORDERABLES Final Resu lt [facility] CLIA # [id number] [address] [id number] * (ABNORMAL) LIPID PANEL (01/17/2017 7:44 PM CDT) CHOLESTEROL 189 <200 mg/dL 01/18/2017 12:37 AM CDT [facility] TRIGLYCERIDE 170(H) <150 mg/dL 01/18/2017 12:37 AM CDT [facility] HDL 67(H) 40 - 59 mg/dL 01/18/2017 12:37 AM CDT [facility] LDL CALCULATED 88 <100 mg/dL 01/18/2017 12:37 AM T [facility] NON-HDL CHOLESTEROL 122 <130 mg/dL 01/18/2017 12:37 AM T [facility] Blood 01/17/2017 7:44 PM CDT 01/17/2017 11:47 PM CDT Narrative [facility] - 01/18/2017 12:37 AM CDT TOTAL CHOLESTEROL [...] DO CHEMISTRY ORDERABLES Final Resu lt [facility] CLIA # [id number] [address] [place] [id number] documented in this encounter Visit Diagnoses Not on filedocumented in this encounter
--- OUTSIDE RECORDS SUMMARY | 2025-09-17 11:18 | XMS_ITS | Encounter Summary ---
Author Organization [facility] Address [address] [place] [address] Care Team Providers Care Grease Maker Head Name Role Phone Unavailable Primary Care Provider Unavailabl e Encounter Details Date Type Department Care Team (Late st Contact Info) Description 05/03/2016 Lab Requisition [facility] General Laboratory Services [place] [address] [place] [phone] Luther Pandey MD NO ADDRESS ON FILE Social History Tobacco Use Types Packs/Day Years Used Date Smoking Tobacco: Every Day Cigarettes 1 40 Comments Unknown Sex and Gender Information Value Date Recorded Sex Assigned at Not on file 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 Gender Identity Not on file Sexual Orientation [...] * MANUAL DIFFERENTIAL (05/03/2016 4:07 PM CDT) [facility] SEGMENTED NEUTROPHILS 51 45 - 70 % 05/03/2016 11:54 PM T [facility] LYMPHOCYTES RELATIVE 40 20 - 45 % 05/03/2016 11:54 PM T [facility] MONOCYTES RELATIVE 8 2 - 8 % 05/03/2016 11:54 PM [facility] EOSINOPHILS RELATIVE 1 0 - 5 % 05/03/2016 11:54 PM T [facility] NEUTROPHILS ABSOLUTE COUNT 4.54 1.78 - 5.38 K/uL 05/03/2016 11:54 PM T [facility] LYMPHOCYTES ABSOLUTE 3.56 1.20 - 4.00 K/uL 05/03/2016 11:54 PM T [facility] MONOCYTES ABSOLUTE 0.71 0.30 - 0.82 K/uL 05/03/2016 11:54 PM [facility] EOSINOPHILS ABSOLUTE 0.09 0.04 - 0.54 K/uL 05/03/2016 11:54 PM [facility] TOTAL CELLS COUNTED IN DIFF 100 05/03/2016 11:54 PM [facility] PLATELET EST. Consistent with Count 05/03/2016 11:54 PM [facility] RBC MORPHOLOGY Normal 05/03/2016 11:54 PM [facility] Blood 05/03/2016 4:07 PM CDT 05/03/2016 8:23 PM CDT [place] Joaquín Sotelo MD HEMATOLOGY ORDE [facility] Final Result [facility] CLIA # [id number] [address] [place] [id number] * (ABNORMAL) TSH (05/03/2016 4:07 PM CDT) Pathologist [facility] TSH 6.69(H) 0.27 - 4.20 uIU/mL 05/03/2016 10:58 PM T [facility] Blood 05/03/2016 4:07 PM CDT 05/03/2016 8:23 PM CDT Luther Sotelo MD CHEMISTRY ORDER DESI Final Result Performing Organization Address City/[facility]/ZIP Co de Phone Number [facility] CLIA # [id number] [address] [place] [phone] * (ABNORMAL) LIPID PANEL (05/03/2016 4:07 PM CDT) CHOLESTEROL 199 <200 mg/dL 05/03/2016 10:59 PM CDT [facility] TRIGLYCERIDE 88 <150 mg/dL 05/03/2016 10:59 PM CDT [facility] HDL 56 40 - 59 mg/dL 05/03/2016 10:59 PM CDT [facility] LDL CALCULATED 125(H) <100 mg/dL 05/03/2016 10:59 PM CDT [facility] NON-HDL CHOLESTEROL 143(H) <130 mg/dL 05/03/2016 10:59 PM CDT [facility] Blood 05/03/2016 4:07 PM CDT 05/03/2016 8:23 PM CDT Narrative [facility] - 05/03/2016 10:59 PM CDT TOTAL [...] ORDER DESI Final Result Performing Organization Address City/[facility]/ZIP Co de Phone Number [facility] CLIA # [id number] [address] [address] * T4 FREE (05/03/2016 4:07 PM CDT) Pathologist [facility] T4 FREE 1.19 0.93 - 1.70 ng/dL 05/03/2016 10:59 PM [facility] Blood 05/03/2016 4:07 PM CDT 05/03/2016 8:23 PM CDT us Luther Sotelo MD CHEMISTRY ORDER DESI Final Result [facility] CLIA # [id number] [address] [place] [id number] * (ABNORMAL) COMPREHENSIVE METABOLIC PANEL (05/03/2016 4:07 PM CDT) [facility] SODIUM 140 136 - 145 mmol/L 05/03/2016 10:59 PM [facility] POTASSIUM 4.1 3.5 - 5.1 mmol/L 05/03/2016 10:59 PM [facility] CHLORIDE 98 98 - 107 mmol/L 05/03/2016 10:59 PM [facility] CO2 25 22 - 29 mmol/L 05/03/2016 10:59 PM [facility] CALCIUM 9.8 8.8 - 10.2 mg/dL 05/03/2016 10:59 PM [facility] BUN 12 8 - 23 mg/dL 05/03/2016 10:59 PM [facility] CREATININE 0.72 0.51 - 0.95 mg/dL 05/03/2016 10:59 PM [facility] GLUCOSE 78 74 - 106 mg/dL 05/03/2016 10:59 PM [facility] TOTAL PROTEIN 7.7 6.6 - 8.7 g/dL 05/03/2016 10:59 PM [facility] ALBUMIN 4.5 3.5 - 5.2 g/dL 05/03/2016 10:59 PM [facility] BILIRUBIN TOTAL 0.2 0.0 - 1.2 mg/dL 05/03/2016 10:59 PM [facility] ALKALINE PHOSPHATASE 115(H) 35 - 104 U/L 05/03/2016 10:59 PM CDT [facility] AST 25 10 - 35 U/L 05/03/2016 10:59 PM CDT [facility] ALT 32 10 - 35 U/L 05/03/2016 10:59 PM CDT [facility] GFR >60 >=60 mL/min/1.7 3 sq meter 05/03/2016 10:59 PM T [facility] Comment: eGFR has not been validated [...] 3 sq meter 05/03/2016 10:59 PM T [facility] ANION GAP 17 12 - 20 mmol/L 05/03/2016 10:59 PM [facility] Blood 05/03/2016 4:07 PM CDT 05/03/2016 8:23 PM CDT us Luther Sotelo MD CHEMISTRY ORDER DESI [id number] [address] [place] [phone] * (ABNORMAL) CBC WITH DIFFERENTIAL (05/03/2016 4:07 PM CDT) WBC 8.9 4.0 - 10.0 K/uL 05/03/2016 10:44 PM CDT [facility] RBC 5.58(H) 3.93 - 5.22 M/uL 05/03/2016 10:44 PM [facility] HEMOGLOBIN 14.7 11.2 - 15.7 g/dL 05/03/2016 10:44 PM T [facility] HEMATOCRIT 44.5 34.1 - 44.9 % 05/03/2016 10:44 PM [facility] MCV 79.7 79.4 - 94.8 fL 05/03/2016 10:44 PM [facility] MCH 26.3 25.6 - 32.2 pg 05/03/2016 10:44 PM [facility] MCHC 33.0 32.2 - 35.5 g/dL 05/03/2016 10:44 PM T [facility] RDW 16.3(H) 11.0 - 14.5 % 05/03/2016 10:44 PM [facility] RDW-STDEV 47.3 36.9 - 56.9 fL 05/03/2016 10:44 PM [facility] PLATELETS 357(H) 163 - 337 K/uL 05/03/2016 10:44 PM [facility] MPV 10.9 10.0 - 14.8 fL 05/03/2016 10:44 PM [facility] Blood 05/03/2016 4:07 PM CDT 05/03/2016 8:23 PM CDT us [place] Joaquín Sotelo MD HEMATOLOGY ORDCynthia REYNOSO Final Result [facility] CLIA # [id number] [address] [place] [id number] documented in this encounter Visit Diagnoses Not on filedocumented in this encounter
--- OUTSIDE RECORDS SUMMARY | 2025-09-17 11:18 | XMS_ITS | Encounter Summary ---
Author Organization [facility] Address [address] [place] [address] Care Team Providers Care Superintendent Drivers Name Role Phone Unavailable Primary Care Provider Unavailabl e Encounter Details Date Type Department Care Team (Late st Contact Info) Description 08/16/2016 Lab Requisition [facility] General Laboratory Services [place] [address] [place] [id number] Colin Gómez, DO NO ADDRESS ON FILE Social History Tobacco Use Types Packs/Day Years Used Date Smoking Tobacco: Every Day Cigarettes 1 40 Comments Unknown Sex and Gender Information Value Date Recorded Sex Assigned at Not on file 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 Gender Identity Not on file Sexual Orientation Not on file documented as of this encounter Plan of Treatment Not on file documented as of this encounter Procedures Procedure Name Priority Date/Time Associated Diagnosis Comments LIPID PANEL Routine 08/16/2016 8:11 PM AUTOPSY PATHOLOGIST documented in this encounter Results * (ABNORMAL) LIPID PANEL (08/16/2016 8:11 PM AUTOPSY PATHOLOGIST) CHOLESTEROL 221(H) <200 mg/dL 08/16/2016 11:48 PM [facility] TRIGLYCERIDE 81 <150 mg/dL 08/16/2016 11:48 PM [facility] HDL 57 40 - 59 mg/dL 08/16/2016 11:48 PM [facility] LDL CALCULATED 148(H) <100 mg/dL 08/16/2016 11:48 PM [facility] NON-HDL CHOLESTEROL 164(H) <130 mg/dL 08/16/2016 11:48 PM [facility] Blood Collection / Unknown 08/16/2016 8:11 PM AUTOPSY PATHOLOGIST 08/16/2016 9:08 PM AUTOPSY PATHOLOGIST Narrative [facility] - 08/16/2016 11:48 PM AUTOPSY PATHOLOGIST TOTAL CHOLESTEROL mg/dL Desirable <200 Borderline high [...] Gómez DO CHEMISTRY ORDERABLES Final Resu lt [facility] CLIA # [id number] [address] [place] [id number] documented in this encounter Visit Diagnoses Not on filedocumented in this encounter
--- OUTSIDE RECORDS SUMMARY | 2025-09-17 11:18 | XMS_ITS | Continuity of Care Document ---
Author Organization CEE Hernan Peterson [facility] Keturah Zapata, [facility] ([facility]) Address [address] [place] [address] Care Team Providers Care Business Trainer Name Role Phone KATIE CAVAZOS Primary Care Provider Unavailabl e Assessment No assessment recorded. Plan of Treatment Reminders Order Date Submit Date Provider Last Modified By Organization Details Last Modified Time Details Appointments None record ed. Lab None record ed. Referral None record ed. Procedures None record ed. Surgeries None record ed. Imaging None record ed. Medication Orders None record ed. Patient TargetsNo targets recorded. Patient InstructionsNo instructions recorded. Reason for Referral None Reported. Problems Name Problem SNOMED Code Status Onset Date Resolution Date Notes Provider Name and Address Organization Details Recorded Time Pulmonar y emphysem a 04438825 Completed 202004/14/2021 EMPHYSEM A/COPD - Status is Resolved ; Resolved Date: 04/14/20 21; Recorded 04/14/20 3:48PM by Katie Cavazos PA-C, [place] on/Adden dum; Promoted ; acuity set as *; Not Available [facility] 3 03:08:35 Dyspnea 712012927 Completed 202004/14/2021 DYSPNEA ON EXERTION - Status is Resolved ; Resolved Date: 04/14/20 21; Recorded 04/14/20 3:48PM by Katie Cavazos PA-C, Annotati on/Adden dum; Promoted ; acuity set as *; Not Available [facility] 3 03:08:35 Acute exacerba tion of chronic obstruct nile pulmonar y disease 404903639 Completed 202004/14/2021 CHRONIC OBSTRUCT NILE ASTHMA WITH EXACERBA TION - Status is Inactive ; Recorded 04/14/20 3:48PM by Katie Cavazos PA-C, Annotati on/Adden dum; Promoted ; acuity set as *; ROSSY torrez, [facility] 5 07:25:18 Dysthymi a 12038121 Completed 202004/14/2021 MALAISE AND FATIGUE - Status is Resolved ; Resolved Date: 04/14/20; Recorded 04/14/20 3:48PM by Katie Cavazos PA-C, Annotati on/Adden dum; Promoted ; acuity set as *; Not Available [facility] 03:08:35 Headache 82750897 Completed 202111/25/2021 FACIAL PAIN - Status is Inactive ; Recorded 11/26/19 9:29AM by Katie Cavazos PA-C, Annotati on/Adden dum; Promoted ; acuity set as *; HEADACH E - Status is Resolved ; Resolved Date: 04/14/20; Recorded 04/14/20 3:48PM by Katie Cavazos PA-C, Annotati on/Adden dum; Promoted ; acuity set as *; ; Start Date : 04/14/20 Not Available [facility] 3 03:08:34 Clinical finding Completed 202110/18/2024 TYPE 2 DIABETES MELLITUS WITHOUT COMPLICA TION, WITHOUT LONG-TER M CURRENT USE OF INSULIN; Date: 03/16/20; Recorded 07/29/20 8:37AM by Rossy Wong LPN, Office Visit; Promoted ; acuity set as *; ROSSY torrez [facility] 5 08:24:02 Periapic al abscess without sinus tract Completed 202107/29/2022 DENTAL ABSCESS - Status is Inactive ; Recorded 07/29/20 3:55PM by Katie Cavazos PA-C, Annotati on/Adden dum; Promoted ; acuity set as *; Not Available [facility] 3 03:08:34 Anxiety state 074364971 Active 2021 ANXIETY; Impressi on: pre procedur al.; Recorded 07/29/20 8:37AM by Rossy Wong LPN, Office Visit; Promoted ; acuity set as *; [facility] 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; Recorded 07/29/20 22 8:37AM by Rossy Wong LPN, Office Visit; Promoted ; acuity set as *; [facility] 5 08:24:02 Hyperten sive disorder 66374383 Completed 202110/18/2024 HYPERTEN MUMTAZ; Recorded 07/29/20 22 8:37AM by Rossy Wong LPN, Office Visit; Promoted ; acuity set as *; [facility] 5 08:24:02 Carotid artery occlusio n 078888006 Active 2021 CAROTID STENOSIS , BILATERA L; Recorded 07/29/20 22 8:37AM by Rossy Wong LPN, Office Visit; Promoted ; acuity set as *; [facility] 5 07:23:58 Gastroes ophageal reflux disease 703821760 Active 2021 GERD (GASTROE SOPHAGEA L REFLUX DISEASE) ; Recorded 07/29/20 22 8:37AM by Rossy Wong LPN, Office Visit; Promoted ; acuity set as *; [facility] 5 07:24:10 Hypothyr oidism 28381704 Active 2021 SUBCLINI YESSICA HYPOTHYR OIDISM; Recorded 07/29/20 22 8:37AM by Rossy Wong LPN, Office Visit; Promoted ; acuity set as *; HYPOTHY ROIDISM; Recorded 07/29/20 22 8:37AM by Rossy Wong LPN, Office Visit; Promoted ; acuity set as *; ROSSY torrez, [facility] [place] 5 07:24:19 Chronic obstruct nile pulmonar y disease 04445641 Completed 202210/18/2024 [facility] [place] 5 20:32:52 Hyperlip idemia 60728477 Active 2022 [facility] 5 07:24:14 Carotid artery stenosis 74064639 Completed 202210/18/2024 [facility] 5 08:24:02 Sprain of left foot [id number] 272619 Completed 202211/09/2024 Removal Reason: resolved ROSSY torrez [facility] 5 07:25:16 [facility] hyperten mumtaz 52465840 Active 2023 [facility] 5 07:24:07 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 5 07:24:54 Peripher al vascular disease 719822043 Active 2023 ROSSY HAEFFNER null, [facility] 5 07:24:59 Anxiety 92806507 Completed 202310/18/2024 ROSSY HAEFFNER null, [facility] 5 08:24:02 Osteopor osis 96888800 Active 2023 ROSSY HAEFFNER null, [facility] 5 07:24:56 Chronic obstruct nile pulmonar y disease 22034752 Active 2024 ROSSY HAEFFNER null, [facility] 5 20:32:52 Moderate chronic obstruct nile pulmonar y disease 075586159 Active 2024 ROSSY HAEFFNER null, [facility] 5 13:44:10 Daytime somnolen ce 83043071900 0 Active 2024 ROSSY HAEFFNER null, [facility] 5 17:55:08 Chronic atrial fibrilla tion 296214010 Active 2024 ROSSY HAEFFNER null, [facility] 5 11:29:09 Notes:Some problems listed i n Documents: #[id number], #[id number] could not be added to this patient's chart. Please review these documents and add these problems to the patient's chart manually as needed. Problem Notes None recorded. Procedures Surgical History Date Name Laterality Status Provider Name and Address Organization Details Recorded Time 11/29/19 25 cardiac catheterization completed KATIE CAVAZOS PA-C [address] [place], [address], [facility] 12/25/2024 11:55:14 11/03/19 25 screening for malignant neoplasm of colon completed ROSSY VALIENTEBIANCA [facility] 11/08/2024 08:44:37 10/29/19 25 echocardiography completed KATIE CAVAZOS PA-C [address] [place], [address], [facility] 12/25/2024 11:55:48 07/05/20 24 [facility] 16:01:33 06/28/20 24 radionuclide imaging of perfusion of myocardium under exercise stress completed KATIE CAVAZOS PA-C [address] [place], [address], [facility] 07/27/2024 11:03:42 06/26/20 24 screening for malignant neoplasm of lung [facility] 06/27/2024 12:26:23 02/03/20 24 jr shave biopsy completed KATIE CAVAZOS PA-C [address] [place], [address], [facility] 02/03/2024 14:01:46 05/27/20 23 jr cryo warts completed KATIE CAVAZOS PA-C [address] [place], [address], [facility] 05/27/2023 10:00:16 03/22/20 14 mammography completed [facility] 06/12/2024 10:22:19 Imaging Results None recorded. Procedure Notes None recorded. Medical Equipment None Reported. Allergies Allergen ID Allergen Name Allergen Category Reaction Reaction Severity Criticality Documentation Date Start Date Code Code System Note Provider Name and Address Organization Details Recorded Time 1156 Benadryl medicatio n Not available Not available Not available 12/31/202231447 7 RxNorm [facility] 3 16:55:59 1878 Substance with sulfonami de structure and antibacte rial mechanism of action (substanc e) medicatio n Not available Not available Not available 01/13/2023 46984 8003 SNOMED ROSSY torrez [facility] 3 12:13:44 81559 acetamino phen / diphenhyd ramine / pseudoeph edrine medicatio n rash Not available Not available 04/23/2023 91116 6 RxNorm React ion: Rash; Comme nt: Recor ded 07/29 8:37A M by Yocasta de la vega, HOT BLASTER, Offic e Visit ; Promo elva; Signi ficmonserrat ce: *; ; JAKE ANGEL lore [facility] 3 18:00:19 13177 doxycycli ne Not available Not available Not available Not available 07/19/2023 3640 RxNorm ROSSY torrez [facility] 3 13:14:14 42680 diphenhyd ramine medicatio n Not available Not available [facility] 08/11/20252024 3498 RxNorm Not Available [employer] - prod 5 17:30:45 58166 sulfabenz amide Not available Not available Not available [facility] 08/11/20252024 98435 RxNorm Not Available charlie - [employer] - prod 5 17:30:45 Medications Name Sig Start Date Stop Date Status Note LastModified by Organization Details LastModified Time Prescript ion - Prior Authoriza tion Request active Not Available Not Available Not Available Singulair 10 mg tablet Take 1 tablet every day by oral route for 30 days. 2024 active Not Available Not Available Not Avai lable cyclobenz aprine 10 mg tablet 01/13 completed Not Available Not Available Not Available amoxicill in 500 mg capsule TAKE 1 CAPSULE BY MOUTH THREE TIMES DAILY FOR 10 DAYS 05/30 completed Not Available Not Available Not Available furosemid e 40 mg tablet TAKE 1 TABLET BY MOUTH ONCE DAILY FOR FLUID RETENTIO N active Not Available Not Available No t Available cilostazo l 100 mg tablet TAKE 1 TABLET TWICE DAILY DIRECTED 2024 active Not Available Not Available Not Avai lable promethaz ine-DM 6.25 mg-15 mg/5 mL oral syrup TAKE 2 TEASPOON S BY MOUTH THREE TIMES DAILY NEEDED 01/13 completed Not Available Not Available Not Available fluticaso ne 250 mcg-salme terol 50 mcg/dose blistr powdr for inhalatio n Inhale 1 puff twice a day by inhalati on route for 30 days. 11/29 completed Not Available Not Available Not Available prednison e 10 mg tablet TAKE 1 TABLET BY MOUTH ONCE DAILY active Not Available Not Available No t Available doxycycli ne hyclate 100 mg capsule TAKE 1 CAPSULE BY MOUTH TWICE DAILY FOR 7 DAYS 12/03 completed Not Available Not Available Not Available ipratropi um 0.5 mg-albute rol 3 mg (2.5 mg base)/3 mL nebulizat ion soln USE 1 AMPULE IN NEBULIZE R TWICE DAILY FOR COPD active Not Available Not Available No t Available albuterol sulfate 2.5 mg/3 mL (0.083 %) solution for nebulizat ion USE 1 VIAL IN NEBULIZE R EVERY 4 HOURS NEEDED FOR SHORTNES S OF BREATH active Not Available Not Available No t Available cetirizin e 10 mg tablet TAKE 1 TABLET BY MOUTH ONCE DAILY active Not Available Not Available No t Available morphine concentra te 100 mg/5 mL (20 mg/mL) oral solution TAKE 0.5 ML BY MOUTH EVERY HOUR NEEDED FOR BREAKTHR OUGH PAIN active Not Available Not Available No t Available azithromy marcela 250 mg tablet TAKE 2 TABLETS BY MOUTH ON DAY 1, AND THEN TAKE 1 TABLET BY MOUTH ONCE A DAY ON DAY 2 THROUGH DAY 5 08/29 completed Not Available Not Available Not Available amiodaron e 200 mg tablet TAKE 1 TABLET BY MOUTH ONCE DAILY active Not Available Not Available No t Available benzonata te 200 mg capsule Take 1 capsule 3 times a day by oral route as needed, for cough. 10/19 completed Not Available Not Available Not Available tolterodi ne ER 4 mg capsule,e xtended release 24 hr daily 10/18 completed vo KM/; Recorded 07/29/20 3:53PM by Katie Cavazos PA-C, Office Visit; Refill Quantity : 30; [...] 2 TABLETS BY MOUTH ONCE DAILY FOR 3 DAYS , THEN 1 TABLET DAILY FOR 4 DAYS active Not Available Not Available No t Available isosorbid e mononitra te ER 30 mg tablet,ex tended release 24 hr TAKE 1 TABLET EVERY DAY active Not Available Not Available No t Available lovastati n 40 mg tablet TAKE 1 [...] BY MOUTH DAILY AT 9AM FOR HYPERTEN MUMTAZ 10/18 completed Not Available Not Available Not Available acetamino phen 300 mg-codein e 30 mg tablet 11/01 completed Not Available Not Available Not Available clopidogr el 75 mg tablet TAKE 1 TABLET ONE TIME DAILY 2024 active Not Available Not Available Not [...] completed Not Available Not Available Not Available alprazola m 0.5 mg tablet TAKE 1 TABLET BY MOUTH EVERY 6 HOURS NEEDED active Not Available Not Available No t Available alprazola m 0.25 mg tablet TAKE 1 TABLET BY MOUTH EVERY 6 HOURS NEEDED active Not Available Not Available No t Available lorazepam 0.5 mg tablet TAKE 1 TABLET BY MOUTH EVERY 4 HOURS NEEDED FOR RESTLESS NESS OR ANXIETY active Not Available Not Available No t Available amlodipin e 10 mg tablet 11/28 completed Not Available Not Available Not Available benzonata te 100 mg capsule TAKE 2 CAPSULES BY MOUTH 3 TIMES DAILY NEEDED FOR COUGH FOR 10 DAYS 05/30 completed Not Available Not Available Not Available doxycycli ne monohydra te 100 mg capsule TAKE 1 CAPSULE BY MOUTH TWICE DAILY FOR 10 DAYS 06/12 completed Not Available Not Available Not Available levothyro xine 50 mcg tablet TAKE 1 TABLET ONE TIME DAILY (NEEDS LABS PRIOR TO MORE REFILLS) 2024 active Not Available Not Available Not Avai lable cephalexi n 500 mg capsule TAKE 1 CAPSULE BY MOUTH THREE TIMES DAILY 05/30 completed Not Available Not Available Not Available pantopraz ole 40 mg tablet,de layed release TAKE 1 TABLET ONE TIME DAILY 2024 active Not Available Not Available Not Avai lable lisinopri l 10 mg tablet 10/18 completed Not Available Not Available Not Available fluticaso ne 500 mcg-salme terol 50 mcg/dose blistr powdr for inhalatio n Inhale 1 puff twice a day by inhalati on route. active Not Available Not Available No t Available metoprolo l tartrate 50 mg tablet TAKE 1 TABLET TWICE DAILY 07/31 completed Not Available Not Available Not Available nitroglyc kenyetta 0.4 mg sublingua l tablet Place 1 tablet as needed by sublingu al route as directed for 30 days. active Not Available Not Available No t Available omeprazol e 20 mg capsule,d elayed release TAKE 1 CAPSULE EVERY DAY 05/27 completed Not Available Not Available Not Available diclofena c sodium 75 mg tablet,de layed release TAKE 1 TABLET BY MOUTH EVERY 12 HOURS NEEDED FOR PAIN active Not Available Not Available No t Available lorazepam 1 mg tablet Take 1 tablet as needed by oral route as directed . 10/18 completed Not Available Not Available Not Available polyethyl aide glycol 3350 17 gram/dose oral powder MIX AND USE 17 GRAMS ONCE DAILY NEEDED FOR CONSTIPA TION active Not Available Not Available No t Available levofloxa marcela 500 mg tablet TAKE 1 TABLET BY MOUTH ONCE DAILY FOR 7 DAYS 07/06 completed Not Available Not Available Not Available levofloxa marcela 750 mg tablet TAKE 1 TABLET BY MOUTH ONCE DAILY FOR 5 DAYS 07/06 completed Not Available Not Available Not Available methylpre dnisolone 4 mg tablets in a dose pack TAKE BY MOUTH DIRECTED ON INSIDE OF PACKAGE 01/03 completed Not Available Not Available Not Available albuterol sulfate HFA 90 mcg/actua tion aerosol inhaler INHALE 2 PUFFS BY MOUTH 4 TIMES DAILY NEEDED active Not Available Not Available No t Available ondansetr on 4 mg disintegr ating tablet DISSOLVE 1 TABLET IN MOUTH EVERY 4 HOURS NEEDED FOR NAUSEA active Not Available Not Available No t Available cefdinir 300 mg capsule TAKE 1 CAPSULE BY MOUTH TWICE DAILY active Not Available Not Available No t Available fluticaso ne propionat e 50 mcg/actua tion nasal spray,mabel pension eacn nostril bid 11/29 completed Not Available Not Available Not Available doxycycli ne hyclate 100 mg tablet TAKE 1 TABLET BY MOUTH TWICE DAILY FOR 7 DAYS 12/25 completed Not Available Not Available Not Available [...] times daily, as needed 10/18 completed vo KM/ /solis; [id number]; Recorded 10/29/19 8:31AM by Rossy Wong LPN (Authori binh through Katie Cavazos PA-C), Refill Request; Refill Quantity : 2; Applicat or; Not Available Not Available Not Available cyclobenz aprine 5 mg tablet TAKE 1 TABLET BY MOUTH THREE TIMES DAILY NEEDED 10/18 completed Not Available Not Available Not Available rosuvasta tin 40 mg tablet TAKE 1 TABLET AT BEDTIME 2024 active Not Available Not Available Not Avai lable metoprolo l tartrate 25 mg tablet TAKE 1/2 (ONE-DAVID F) TABLET BY MOUTH TWICE DAILY active Not Available Not Available No t Available Spiriva with HandiHale r 18 mcg and inhalatio n capsules Inhale 1 capsule every day by inhalati on route. active Not Available Not Available No t Available magnesium L-lactate ER 84 mg tablet,ex tended release TAKE 1 TABLET BY MOUTH TWICE DAILY active Not Available Not Available No t Available magnesium 10/18 completed Not Available Not Available Not Available aspirin 81MG QD active Not Available Not Avai lable Not Available Softclix Lancets daily 09/12 completed vo KM/; 30191; Recorded 12/02/19 2:56PM by Rossy Wong LPN (Authori binh through Katie Cavazos PA-C), Refill Request; Mail Order Quantity : [...] Available Not Available atenolol daily 10/18 completed 86490; Recorded 07/29/20 22 8:37AM by Rossy Wong LPN (Authori binh through Katie Cavazos PA-C), Office Visit; Mail Order Quantity : 90 Tablet; Refill Quantity : 0; Not Available Not Available Not Available isosorbid e 01/13 completed Not Available Not Available Not Available metoprolo l succinate 01/13 completed Not Available Not Available Not Available lovastati n 01/13 completed Not Available Not Available Not Available [facility] Levothyro xine Sodium daily 06/21 completed 60291; Recorded 07/29/20 22 8:37AM by Rossy Wong LPN (Authori binh through Katie Cavazos PA-C), Office Visit; Mail Order Quantity : 90 Tablet; Refill Quantity : 0; Not Available Not Available Not Available cilostazo l 01/13 completed Not Available Not Available Not Available Celebrex daily 10/18 completed Recorded 07/29/20 22 3:46PM by Katie Cavazos PA-C, Office Visit; Refill Quantity : 30; Capsule; Not Available Not Available Not Available Advair HFA 45 mcg-21 mcg/actua tion aerosol inhaler 10/19 completed Not Available Not Available Not Available Cholestyr amine Light 4 gram oral powder 09/12 completed Not Available Not Available Not Available Accu-Chek Linkassis t Insertion Device daily 11/20 completed vo KM/dh; Recorded 07/29/20 22 8:37AM by Rossy Wong [...] Available Not Available Aerochamb er Plus Flow-Vu 11/29 completed Not Available Not Available Not Available Eliquis 5 mg tablet TAKE 1 TABLET BY MOUTH TWICE DAILY active Not Available Not Available No t Available Spiriva Respimat 1.25 mcg/actua tion solution for inhalatio n Inhale 2 inhalati ons every day by inhalati on route as directed for 90 days. 11/29 completed Not Available Not Available Not Available Accu-Chek Guide test strips Take 1 strip every day by miscell. route as directed for 100 days. 11/20 completed Not Available Not Available Not Available Accu-Chek Guide Glucose Meter 11/20 completed Not Available Not Available Not Available Breztri Aerospher e 160 mcg-9mcg- 4.8mcg/ac tuation HFA aerosol inhaler Inhale 2 puffs twice a day by inhalati on route. 12/25 completed 2 samples given Not Available Not Available Not Available Trelegy Ellipta 200 mcg-62.5 mcg-25 mcg powder for inhalatio n Inhale 1 puff every day by inhalati on route for 30 days. 10/18 completed Not Available Not Available Not Available Ohtuvayre 3 mg/2.5 mL suspensio n for nebulizat ion Inhale 2.5 mL twice a day by nebuliza tion route for 320 days. 01/24 completed enrollme nt # is [id number] $500/mon th Not Available Not Available Not Available Vitals Date Recorded Body height Body mass index (BMI) Body weight Oxygen saturation Inhaled oxygen flow rate Heart rate Respiratory rate Body temperature Systolic And Diastolic Provider Name and Address Organization Details Last Updated DateTime 154.94 cm 28.9 kg/m2 60629.6 3 g 93 % 2 L/min 80 /min 18 /min 98 [degF] 130/80 mm[Hg] ROSSY WONG [facility] 14:32:21 Social History Question Answer Notes LastModified by Organizat ion Details LastModified Time Tobacco Smoking Status Current Every Day Smoker LAURA GHAZALA torrez [facility] 08/16/2024 11:52:43 What Was The Date Of Your Most Recent Tobacco Screening? 10/19/2024 [email or web address] Information not available 10/19/2024 What Is Your Current Pack Years? [email or web address] ears Information not available 10/19/2024 How Much Tobacco Do You Smoke? 0.5 PPD [email or web address] Information not available 10/19/2024 Sex: Unknown Functional Status Question Answer Note LastModified by Organizat ion Details LastModified Time Do you use any illicit or recreational drugs? No Information not available 08/16/2024 What is your level of alcohol consumption? None Information not available 08/16/2024 Are you able to care for yourself independently? Yes Information not available 08/16/2024 Mental Status None recorded. Family History Nothing Reported. Medical History No medical history recorded. Gynecological HistoryNo gynecological history recorded. Obstetrics History GPAL:G 0 P 0 0 0 0 Immunizations Vaccine Type Date Status Note Provider Nam e and Address Organization Details Recorded Time Influenza, adjuvanted, trivalent, PF 5 completed ROSSY torrez [facility] 07/31/2025 15:22:40 RSV, bivalent, protein subunit RSVpreF, diluent reconstituted, 0.5 mL, PF 5 completed ROSSY torrez [facility] 07/31/2025 15:22:41 influenza, split (incl. purified surface antigen) 0 completed Not Available [facility] 07/31/2025 14:28:24 pneumococcal polysaccharide PPV23 0 completed Not Available [facility] 07/31/2025 14:28:24 Influenza, split virus, trivalent, preservative 2 completed Not Available [facility] 07/31/2025 14:28:24 Influenza, high-dose, trivalent, PF 0 completed Not Available [facility] 07/31/2025 14:28:24 Pneumococcal conjugate PCV 13 0 completed Not Available [facility] 07/31/2025 14:28:24 COVID-19, mRNA, LNP-S, PF, 100 mcg/0.5mL dose or 50 mcg/0.25mL dose 1 completed Not Available [facility] 07/31/2025 14:28:24 COVID-19, mRNA, LNP-S, PF, 100 mcg/0.5mL dose or 50 mcg/0.25mL dose 1 completed Not Available [facility] 07/31/2025 14:28:24 Pneumococcal conjugate PCV20, polysaccharide [id number] conjugate, adjuvant, PF 2 completed Not Available [facility] 07/31/2025 14:28:24 Influenza, high-dose, quadrivalent, PF 2 completed Not Available [facility] 07/31/2025 14:28:24 Influenza, high-dose, quadrivalent, PF 3 completed Not Available [facility] 07/31/2025 14:28:24 tetanus toxoid, unspecified formulation 2 completed Not Available [facility] 04/23/2023 02:23:22 pneumococcal, unspecified formulation 2 completed Not Available [facility] 04/23/2023 02:23:22 Influenza, split virus, trivalent, preservative 1 completed Not Available [facility] 04/23/2023 02:23:22 pneumococcal polysaccharide PPV23 6 completed Not Available [facility] 04/23/2023 02:23:22 Influenza, split virus, trivalent, preservative 2 completed Not Available [facility] [facility] 04/23/2023 02:23:22 Past Encounters Encounter ID Performer Location Encounter Start Date Encounter Closed Date Diagnosis/Indication Diagnosis SNOMED-CT Code Diagnosis ICD10 Code Diagnosis IMO Codes Diagnosis Note [id number] KATIE ACVAZOS PA-C [facility] ([facility]) [address] [place] [phone] 07/31/2025 14:25:14 07/31/2025 15:30:56 Physical examination 5759377 Z00.00 497143 Severe chr onic obstructive pulmonary disease 290995722 J44.9 356131 on O2, spiriva and Advair.on HOSPICE Requires i nfluenza virus vaccination [id number] Z23 159789 Requires r espiratory syncytial virus vaccination 845384280 Z29.11 323929 Chronic at rial fibrillation 929837208 I48.20 046296 on eliquis, amiodardon e, metoprolol Peripheral arterial disease 951371312 I73.9 253892 statin, plavix, asa, cilostazol Dependence on continuous supplemental oxygen [id number] 9103 Z99.81 [id number] Health Concerns Section Related Observation LastModified by Organization Detai ls LastModified Time None Recorded Concern Status LastModified by Organization Details LastModified Time None Recorded Payers Encounter Date Sequence Insurance Name Policy Number Policy Brown Covered Member ID Brown Member ID Guarantor Name 07/31/2025 1 [employer] (MEDICARE REPLACEMENT/A DVANTAGE - PPO) Cinthia Palacios [id number] Cinthia Palacios Notes Date Note Type Note Provider Name and Address Organization Details Recorded Time 5 text/html Medicare Annual Wellness VisitReported by PatientSocial/Behavioral HistoryFor diet and nutrition, patient reportshealthy diet,discussed vitamin and supplement use,discussed portion control,discussed maintaining calcium balance, anddiscussed diet improvement. For fracture risk, patient reportsno history of fractures,no recent explained fracture,no sudden unexplained fractures, andno previous musculoskeletal injuries. For physical activity, patient reportsdiscussed weightbearing activitiesanddiscussed exercise habits.Mental Status:For orientation, patient reportsdisorientation to datebut reportsno disorientation to timeandno disorientation to place. For concentration and memory, patient reportsdecreased concentrating abilityandmemory lapses or loss. For depression risk, patient reportsnever feels sad, empty, or tearful,no loss of interest in activities,no significant changes in weight,no sleep disturbances or insomnia,no agitation,no loss of energy,no feelings of worthlessness or guilt,no thoughts of suicide,no history of depression, andno history of mood disorders. For speech/motor difficulties, patient reportsno difficulty writing/copying.Functional AbilityFor vision, patient reportsworse both distance and near(wears glasses). For activities of daily living, patient reportsunable to bathe without assistanceandunable to groom without assistancebut reportsable to contol urination and bowels,able to dress with limited or no assistance,able to feed self with limited or no assistance, andable to toilet with limited or no assistance. For instrumental activities of daily living, patient reportsunable to do house work without assistance,unable to grocery shop without assistance, andunable to to prepare meals without assistancebut reportsable to manage medications with limited or no assistance,able to manage money with limited or no assistance, andable to use the phone with limited or no assistance. For hearing, patient reportsno loss of hearing. For falls risk assessment, patient reportsno frequent falls while walking,no dizziness/vertigo,fall(s) in the past year 0, andfall(s) since last visit0. For home safety, patient reportsno unsafe mary carmen hazzards,no unsafe stairs,working smoke/co detectors,use of seatbelts,has hand bars in the bathroom/shower,good lighting in the home,reviewed sun protection, andnumber of motor vehicle accidents 0. only taking eliquis qd instead of bid due to cost KATIE CAVAZOS PA-C [address] [place] [address], [phone], [facility], [place] 07/31/2025 15:15:39 OBGyn Episode No OBEpisode recorded.
--- OUTSIDE RECORDS SUMMARY | 2025-09-17 11:18 | XMS_ITS | Clinical Summary ---
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
--- OUTSIDE RECORDS SUMMARY | 2025-09-17 11:18 | XMS_ITS | Encounter Summary ---
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 Name Role Phone Unavailable Primary Care Provider Unavailabl e Encounter Details Date Type Department Care Team (Late st Contact Info) Description 09/01/2015 Lab Requisition [facility] [place] [address] [place] [id number] Flo Lopez PA NO ADDRESS ON FILE Illness Social History Tobacco Use Types Packs/Day Years Used Date Smoking Tobacco: Every Day Cigarettes 1 40 Comments Unknown Sex and Gender Information Value Date Recorded Sex Assigned at Not on file 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 Gender Identity Not on file Sexual Orientation Not on file documented as of this encounter Plan of Treatment Not on file documented as of this encounter Procedures Procedure Name Priority Date/Time Associated Diagnosis Comments TSH Routine 09/01/2015 9:00 PM CAR STEREO INSTALLER Illness HEPATIC FUNCTION PANEL Routine 09/01/2015 9:00 PM CAR STEREO INSTALLER Illness LIPID PANEL Routine 09/01/2015 9:00 PM CAR STEREO INSTALLER Illness BASIC METABOLIC PANEL Routine 09/01/2015 9:00 PM CAR STEREO INSTALLER Illness documented in this encounter Results * TSH (09/01/2015 9:00 PM CAR STEREO INSTALLER) TSH 2.20 0.27 - 4.20 uIU/mL 09/01/2015 9:46 PM CAR STEREO INSTALLER [facility] Blood Collection / Unknown 09/01/2015 9:00 PM CAR STEREO INSTALLER 09/01/2015 9:00 PM CAR STEREO INSTALLER Flo CROWDER CHEMISTRY ORDERABLES Final Re sult Performing Organization Address City/[facility]/ZIP Co de Phone Number [facility] [place] [place] CLIA # [id number] [address] [address] * (ABNORMAL) LIPID PANEL (09/01/2015 9:00 PM CAR STEREO INSTALLER) [facility] Signature CHOLESTEROL 160 <200 mg/dL 09/01/2015 9:46 PM CAR STEREO INSTALLER [facility] [place] [place] TRIGLYCERIDE 161(H) <150 mg/dL 09/01/2015 9:46 PM CAR STEREO INSTALLER [facility] [facility] HDL 54 40 - 59 mg/dL 09/01/2015 9:46 PM CAR STEREO INSTALLER [facility] LDL CALCULATED 74 <100 mg/dL 09/01/2015 9:46 PM CAR STEREO INSTALLER [facility] [facility] NON-HDL CHOLESTEROL 106 <130 mg/dL 09/01/2015 9:46 PM CAR STEREO INSTALLER [facility] Blood Collection / Unknown 09/01/2015 9:00 PM CAR STEREO INSTALLER 09/01/2015 9:00 PM CAR STEREO INSTALLER Narrative [facility] [place] - 09/01/2015 9:46 PM CAR STEREO INSTALLER TOTAL CHOLESTEROL mg/dL Desirable <200 Borderline high [...] ORDERABLES Final Re sult Performing Organization Address City/[facility]/ZIP Co de Phone Number [facility] CLIA # [id number] [address] [address] * HEPATIC FUNCTION PANEL (09/01/2015 9:00 PM CAR STEREO INSTALLER) Pathologist [facility] [place] TOTAL PROTEIN 7.2 6.6 - 8.7 g/dL 09/01/2015 9:46 PM CAR STEREO INSTALLER [facility] ALBUMIN 3.9 3.5 - 5.2 g/dL 09/01/2015 9:46 PM CAR STEREO INSTALLER [facility] BILIRUBIN TOTAL <0.2 0.0 - 1.2 mg/dL 09/01/2015 9:46 PM CAR STEREO INSTALLER [facility] BILIRUBIN DIRECT <0.2 0.0 - 0.3 mg/dL 09/01/2015 9:46 PM CAR STEREO INSTALLER [facility] ALKALINE PHOSPHATASE 87 35 - 104 U/L 09/01/2015 9:46 PM CAR STEREO INSTALLER [facility] AST 17 10 - 35 U/L 09/01/2015 9:46 PM CAR STEREO INSTALLER [facility] ALT 10 10 - 35 U/L 09/01/2015 9:46 PM [facility] Blood Collection / Unknown 09/01/2015 9:00 PM CAR STEREO INSTALLER 09/01/2015 9:00 PM CAR STEREO INSTALLER Flo CROWDER CHEMISTRY ORDERABLES Final Re sult [facility] CLIA # [id number] [address] [place] [address] * (ABNORMAL) BASIC METABOLIC PANEL (09/01/2015 9:00 PM CAR STEREO INSTALLER) Pathologist [facility] SODIUM 135(L) 136 - 145 mmol/L 09/01/2015 9:46 PM CAR STEREO INSTALLER [facility] POTASSIUM 3.6 3.5 - 5.1 mmol/L 09/01/2015 9:46 PM [facility] CHLORIDE 97(L) 98 - 107 mmol/L 09/01/2015 9:46 PM CAR STEREO INSTALLER [facility] CO2 26 22 - 29 mmol/L 09/01/2015 9:46 PM CAR STEREO INSTALLER [facility] CALCIUM 9.0 8.8 - 10.2 mg/dL 09/01/2015 9:46 PM CAR STEREO INSTALLER [facility] BUN 8 8 - 23 mg/dL 09/01/2015 9:46 PM [facility] [employer] [facility] CREATININE 0.66 0.51 - 0.95 mg/dL 09/01/2015 9:46 PM [facility] [employer] [facility] GLUCOSE 85 74 - 106 mg/dL 09/01/2015 9:46 PM [facility] GFR >60 >=60 mL/min/1.7 3 sq meter 09/01/2015 9:46 PM [facility] [employer] [facility] Comment: eGFR has not been validated for [...] mL/min/1.7 3 sq meter 09/01/2015 9:46 PM [facility] [employer] [facility] ANION GAP 12 12 - 20 mmol/L 09/01/2015 9:46 PM [facility] [facility] Blood Collection / Unknown 09/01/2015 9:00 PM CAR STEREO INSTALLER 09/01/2015 9:00 PM CAR STEREO INSTALLER Flo CROWDER CHEMISTRY ORDERABLES Final Re sult [facility] [id number] [address] [place] [id number] documented in this encounter Visit Diagnoses Diagnosis Illness Other unknown and unspecified cause of morbidity or mortality documented in this encounter
--- OUTSIDE RECORDS SUMMARY | 2025-09-17 11:18 | XMS_ITS | Data Portability ---
Author Organization [place] Janie Hernan [facility] Keturah Zapata [facility] Address [address] [facility] [address] [place] [address] Care Team Providers Care Loom Repairer Name Role Phone DIRK KATIE Primary Care Provider Unavailabl e Assessment No assessment recorded. Plan of Treatment Reminders Order Date Submit Date Provider Last Modified By Organization Details Last Modified Time Details Appointments None recorded. Lab CMP, serum or plasma 2024 025 [place] [facility], [address], [facility] 1, [place], [address], 16:51:15 CBC 2024 025 [facility], [address], [facility] 1, [place], [address], 13:51:19 respiratory allergen panel - [facility] b 2024 025 [employer] [facility], [address] [place] [address], [address], [place], [address], 16:54:30 unlisted lab - food and tree nut allergy panel 2024 025 [employer] [facility], [address] [place] [address], [address], [place], [address], 16:54:32 food allergen panel, serum 2024 025 [employer] [facility], [address], [address], [place], [address], 16:54:[address] referral 2024 025 [email or web address] 2 [facility] Pulmonology - Dr Datar, [address] [facility], [address], [place], [address], 15:28:34 hospice & palliative medicine referral 2024 025 [email or web address] 2 Not available 17:16:41 home health referral 2024 025 [email or web address] 2 Not available 21:47:43 in home supportive care provider referral 2024 025 [email or web address] 2 Not available 21:47:52 Procedures None recorded. Surgeries None recorded. Imaging electrocard iogram 2024 025 [email or web address] 4 [facility] ([facility]), [address] [place], [address], 09:12:19 event monitor 2024 025 [email or web address] 2 [facility] (Scheduling Orders), [address] [place], [address], 21:48:10 Medication Orders cetirizine 10 mg tablet [address] [facility], [address], [place], [address], 17:46:48 Singulair 10 mg tablet [address] [facility], [address], [place], [address], 17:46:48 Patient TargetsNo targets recorded. Patient InstructionsNo instructions recorded. Reason for Referral Home Health Referral for Chr onic obstructive pulmonary disease Referring Physician: Family Will Medicine, Encounter Date: 01/24/2025 In Home Supportive Care Prov ider Referral for Chronic obstructive pulmonary disease Referring Physician: Family Semaj Solis, Encounter Date: 01/24/2025 Process Improvement Specialist Referral for C hronic obstructive pulmonary disease Referring Physician: Family eSmaj Solis, Encounter Date: 04/23/2025 Hospice & Palliative Medicin e Referral for Chronic obstructive pulmonary disease Referring Physician: Family Semaj Solis, Encounter Date: 04/23/2025 Results Created Date Observation Date Name Description Value Unit Range Abnormal Flag Note LastModifiedBy Organization Detail LastModifiedTime 04/23/2004/23/2025 CBC WBC 6.4 x10 4.0-10 .5 Not Available [facility] [address] [facility] [address], [place], [address], 04/23/2025 13:51:19 04/23/2004/23/2025 CBC RBC 4.94 x10 3.50-5 .50 Not Available [facility] [address] [facility] [address], [place], [address], 04/23/2025 13:51:19 04/23/20 25 04/23/2025 CBC HGB 12.6 g/dL 12.0-1 6.0 Not Available [facility] [address] [facility] 1, [place], [address], 04/23/2025 13:51:19 04/23/2004/23/2025 CBC HCT 40.2 % 37.0-4 7.0 Not Available [facility] [address] [facility] [address], [place], [address], 04/23/2025 13:51:19 04/23/20 25 04/23/2025 CBC MCV 81.3 fL 80.0-9 9.9 Not Available [facility] [address] [facility] 1, [place], [address], 04/23/2025 13:51:19 04/23/2004/23/2025 CBC MCH 25.5 pg 27.0-3 2.0 low Not Available [facility] [address] [facility], [place], [address], 04/23/2025 13:51:19 04/23/2004/23/2025 CBC MCHC 31.3 g/dL 32.0-3 6.0 low Not Available [facility] [address] [facility] 1, [place], [address], 04/23/2025 13:51:19 04/23/2004/23/2025 CBC RDW 16.3 % 11.5-1 4.5 high Not Available [facility] [address] [facility] 1, [place], [address], 04/23/2025 13:51:19 04/23/2004/23/2025 CBC plt 296.0 x10 140.0- 451.0 Not Available [facility] [address] [facility] 1, [place], [address], 04/23/2025 13:51:19 04/23/2004/23/2025 CBC lymphocytes % 26.9 % 20.0-5 0.0 Not Available [facility] [address] [facility] 1, [place], [address], 04/23/2025 13:51:19 04/23/2004/23/2025 CBC granulcytes % 63.1 % 30.0-7 0.0 Not Available [facility] [address] [facility] 1, [place], [address], 04/23/2025 13:51:19 04/23/2004/23/2025 CBC monocytes % 8.8 % 2.0-16 .0 Not Available [facility] [address] [address], [place], [address], 04/23/2025 13:51:19 04/23/2004/23/2025 CBC granulcytes# 4.0 x10 Not Soraya ilable [facility] [address] [address], [place], [address], 04/23/2025 13:51:19 04/23/2004/23/2025 CBC lymphocytes # 1.7 x10 Not Available [facility] [address] [address], [place], [address], 04/23/2025 13:51:19 04/23/2004/23/2025 CBC monocytes # 0.6 x10 Not Avai lable [facility] [address] [address], [place], [address], 04/23/2025 13:51:19 04/23/2004/23/2025 CMP (FEMA LE) glucose 65.0 mg/dL 60.0-9 9.0 Not Available [facility] [address] [address], [place], [address], 04/23/2025 16:51:15 04/23/2004/23/2025 CMP (FEMA LE) BUN (blood urea nitrogen) 11.0 mg/dL 10.0-2 6.0 Not Available [facility] [address] [address], [place], [address], 04/23/2025 16:51:15 04/23/2004/23/2025 CMP (FEMA LE) creatinine (serum) 0.7 mg/dL 0.4-1. 5 Not Available [facility] [address] [facility] [address] [address], [place], [address], 04/23/2025 16:51:15 04/23/20 25 04/23/2025 CMP (FEMA LE) BUN/creatini ne ratio 15.71 ratio Not Available [facility] [address] [facility] 1, [place], [address], 04/23/2025 16:51:15 04/23/20 25 04/23/2025 CMP (FEMA LE) eGFR calculated 87.7 Not Available [facility] [address] [facility] 1, [place], [address], 04/23/2025 16:51:15 04/23/20 25 04/23/2025 CMP (FEMA LE) total protein 7.4 g/dL 6.0-8. 5 Not Available [facility] [address] [facility] 1, [place], [address], 04/23/2025 16:51:15 04/23/20 25 04/23/2025 CMP (FEMA LE) total bilirubin 0.5 mg/dL 0.2-1. 3 Not Available [facility] [address] [facility] 1, [place], [address], 04/23/2025 16:51:15 04/23/20 25 04/23/2025 CMP (FEMA LE) albumin 4.4 g/dL 3.5-5. 5 Not Available [facility] [address] [facility] 1, [place], [address], 04/23/2025 16:51:15 04/23/20 25 04/23/2025 CMP (FEMA LE) globulin 3.0 calc Not Available [facility] [address] [facility] 1, [place], [address], 04/23/2025 16:51:15 04/23/20 25 04/23/2025 CMP (FEMA LE) AST (SGOT) 31.0 U/L 0.0-46 .0 Not Available [facility] [address] [facility] [address], [place], [address], 04/23/2025 16:51:15 04/23/20 25 04/23/2025 CMP (FEMA LE) altv (SGPT) 18.0 U/L 13.0-6 9.0 normal Not Available [facility] [address] [facility] [address], [place], [address], 04/23/2025 16:51:15 04/23/20 25 04/23/2025 CMP (FEMA LE) A/G ratio 1.5 ratio Not Available [facility] [address] [facility] [address], [place], [address], 04/23/2025 16:51:15 04/23/20 25 04/23/2025 CMP (FEMA LE) ALP phos 73.0 U/L 30.0-1 40.0 normal Not Available [facility] [address] [facility] [address], [place], [address], 04/23/2025 16:51:15 04/23/20 25 04/23/2025 CMP (FEMA LE) calcium 9.6 mg/dL 8.4-10 .5 Not Available [facility] [address] [facility] 1, [place], [address], 04/23/2025 16:51:15 04/23/20 25 04/23/2025 CMP (FEMA LE) sodium 142.0 mmol/ L 136.0- 145.0 Not Available [facility] [address] [facility] 1, [place], [address], 04/23/2025 16:51:15 04/23/20 25 04/23/2025 CMP (FEMA LE) potassium 3.8 mmol/ L 3.5-5. 1 Not Available [facility] [address] [facility] 1, [place], [address], 04/23/2025 16:51:15 04/23/20 25 04/23/2025 CMP (FEMA LE) chloride 106.0 mmol/ L 98.0-1 10.0 normal Not Available [facility] [address] [facility] [address], [place], [address], 04/23/2025 16:51:15 04/23/20 25 04/23/2025 CMP (FEMA LE) C02 28.0 mmol/ L 22.0-3 1.0 Not Available [facility] [address] [facility] [address], [place], [address], 04/23/2025 16:51:15 04/23/20 25 04/23/2025 CMP (FEMA LE) anion gap 8.0 calc Not Available [facility] [address] [facility] [address], [place], [address], 04/23/2025 16:51:15 04/23/20 25 04/23/2025 CMP (FEMA LE) osmolality 290.9 calc Not Available [facility] [address] [facility] [address], [place], [address], 04/23/2025 16:51:15 04/23/20 25 04/25/2025 IGG4 FOOD PANEL IV peach <0.30 mcg/m L Not Available [employer] [facility] [address] [place], [address], 04/25/2025 16:54:28 04/23/20 25 04/25/2025 IGG4 FOOD PANEL IV cauliflower <0.30 mcg/m L Not Available [employer] [facility] [address] [place], [address], 04/25/2025 16:54:28 04/23/20 25 04/25/2025 IGG4 FOOD PANEL IV clam <0.30 mcg/m L Not Available [address] [place], [address], 04/25/2025 16:54:28 04/23/20 25 04/25/2025 IGG4 FOOD PANEL IV lettuce <0.30 mcg/m L Not Available [address], [address], 04/25/2025 16:54:28 04/23/20 25 04/25/2025 IGG4 FOOD PANEL IV green pea <0.30 mcg/m L Not Available [address], [address], 04/25/2025 16:54:28 04/23/20 25 04/25/2025 IGG4 FOOD PANEL IV sweet potato <0.30 mcg/m L Not Available [address], [address], 04/25/2025 16:54:28 04/23/20 25 04/25/2025 IGG4 FOOD PANEL IV lobster <0.30 mcg/m L Not Available [address], [address], 04/25/2025 16:54:28 04/23/20 25 04/25/2025 IGG4 FOOD PANEL IV black pepper <0.30 mcg/m L Not Available [address], [address], 04/25/2025 16:54:28 04/23/20 25 04/25/2025 IGG4 FOOD PANEL IV sesame seed <0.30 mcg/m L Not Available [address], [address], 04/25/2025 16:54:28 04/23/20 25 04/25/2025 IGG4 FOOD PANEL IV walnut food (juglans spp) <0.30 mcg/m L Refer ence range s have not been estab lishe d for food- speci fic IgG4 tests . The clini wenceslao utili ty of food- speci fic IgG4 tests has not been clear ly estab lishe d. These tests can be used in speci al clini wenceslao situa tions to selec t foods for evalu ation by diet elimi natio n and chall enge in patie nts who have food- relat ed compl aints , and to evalu ate food aller gic patie nts prior to food chall enges . The prese nce of food- speci fic IgG4 alone has been studi ed in respo nse to vario us oral food immun other apy treat ments but cutof fs have not been estab lishe d. *This test was devamanda ellsworth and its perfo rmanc e george cteri stics deter mined by [employer] [place]. It has not been clear ed or appro [place] by the U.S. Food and Drug Admin istra tion. FLAG Inter preta tion: A = Abnor mal, H = High, L = Low Not Available [address] [address] [place], [address], 04/25/2025 16:54:28 04/23/20 25 04/25/2025 RESPI RATOR Y ALLER GY PANEL REGIO N VIII W/REF L dermatophago ides pteronyssinu s (D1) IgE <0.10 kU/L normal Not Available [facility] [address] [address] [place], [address], 04/25/2025 16:54:30 04/23/20 25 04/25/2025 RESPI RATOR Y ALLER GY PANEL REGIO N VIII W/REF L class 0 Not Available [facility] [address] [address] [place], [address], 04/25/2025 16:54:30 04/23/20 25 04/25/2025 RESPI RATOR Y ALLER GY PANEL REGIO N VIII W/REF L dermatophago ides farinae (D2) IgE <0.10 kU/L normal Not Available [facility] [address] [place], [address], 04/25/2025 16:54:30 04/23/20 25 04/25/2025 RESPI RATOR Y ALLER GY PANEL REGIO N VIII W/REF L class 0 Not Available [address] [address] [place], [address], 04/25/2025 16:54:30 04/23/20 25 04/25/2025 RESPI RATOR Y ALLER GY PANEL REGIO N VIII W/REF L penicillium notatum (M1) IgE <0.10 kU/L normal Not Available [address] [address] [place], [address], 04/25/2025 16:54:30 04/23/20 25 04/25/2025 RESPI RATOR Y ALLER GY PANEL REGIO N VIII W/REF L class 0 Not Available [address], [address], 04/25/2025 16:54:30 04/23/20 25 04/25/2025 RESPI RATOR Y ALLER GY PANEL REGIO N VIII W/REF L cladosporium herbarum (M2) IgE <0.10 kU/L normal Not Available [address], [address], 04/25/2025 16:54:30 04/23/20 25 04/25/2025 RESPI RATOR Y ALLER GY PANEL REGIO N VIII W/REF L class 0 Not Available [address] [address] [place], [address], 04/25/2025 16:54:30 04/23/20 25 04/25/2025 RESPI RATOR Y ALLER GY PANEL REGIO N VIII W/REF L aspergillus fumigatus (M3) IgE <0.10 kU/L normal Not Available [address], [address], 04/25/2025 16:54:30 04/23/20 25 04/25/2025 RESPI RATOR Y ALLER GY PANEL REGIO N VIII W/REF L class 0 Not Available [address], [address], 04/25/2025 16:54:30 04/23/20 25 04/25/2025 RESPI RATOR Y ALLER GY PANEL REGIO N VIII W/REF L alternaria alternata (M6) IgE <0.10 kU/L normal Not Available [address], [address], 04/25/2025 16:54:30 04/23/20 25 04/25/2025 RESPI RATOR Y ALLER GY PANEL REGIO N VIII W/REF L class 0 Not Available [address], [address], 04/25/2025 16:54:30 04/23/20 25 04/25/2025 RESPI RATOR Y ALLER GY PANEL REGIO N VIII W/REF L CAT dander (E1) IgE <0.10 kU/L normal Not Available [address], [address], 04/25/2025 16:54:30 04/23/20 25 04/25/2025 RESPI RATOR Y ALLER GY PANEL REGIO N VIII W/REF L class 0 Not Available [address], [address], 04/25/2025 16:54:30 04/23/20 25 04/25/2025 RESPI RATOR Y ALLER GY PANEL REGIO N VIII W/REF L dog dander (E5) IgE <0.10 kU/L normal Not Available [address], [address], 04/25/2025 16:54:30 04/23/20 25 04/25/2025 RESPI RATOR Y ALLER GY PANEL REGIO N VIII W/REF L class 0 Not Available [address] [address] [place], [address], 04/25/2025 16:54:30 04/23/20 25 04/25/2025 RESPI RATOR Y ALLER GY PANEL REGIO N VIII W/REF L cockroach (I6) IgE <0.10 kU/L normal Not Available [address] [address] [place], [address], 04/25/2025 16:54:30 04/23/20 25 04/25/2025 RESPI RATOR Y ALLER GY PANEL REGIO N VIII W/REF L class 0 Not Available [address], [address], 04/25/2025 16:54:30 04/23/20 25 04/25/2025 RESPI RATOR Y ALLER GY PANEL REGIO N VIII W/REF L maple (box elder) (T1) IgE <0.10 kU/L normal Not Available [address] [address] [place], [address], 04/25/2025 16:54:30 04/23/20 25 04/25/2025 RESPI RATOR Y ALLER GY PANEL REGIO N VIII W/REF L class 0 Not Available [address], [address], 04/25/2025 16:54:30 04/23/20 25 04/25/2025 RESPI RATOR Y ALLER GY PANEL REGIO N VIII W/REF L mountain cedar (T6) IgE <0.10 kU/L normal Not Available [address], [address], 04/25/2025 16:54:30 04/23/20 25 04/25/2025 RESPI RATOR Y ALLER GY PANEL REGIO N VIII W/REF L class 0 Not Available [address], [address], 04/25/2025 16:54:30 04/23/20 25 04/25/2025 RESPI RATOR Y ALLER GY PANEL REGIO N VIII W/REF L walnut tree (T10) IgE <0.10 kU/L normal Not Available [address] [address] [place], [address], 04/25/2025 16:54:30 04/23/20 25 04/25/2025 RESPI RATOR Y ALLER GY PANEL REGIO N VIII W/REF L class 0 Not Available [address] [address] [place], [address], 04/25/2025 16:54:30 04/23/20 25 04/25/2025 RESPI RATOR Y ALLER GY PANEL REGIO N VIII W/REF L sycamore (T11) IgE <0.10 kU/L normal Not Available [address] [address] [address] , [place], [address], 04/25/2025 16:54:30 04/23/20 25 04/25/2025 RESPI RATOR Y ALLER GY PANEL REGIO N VIII W/REF L class 0 Not Available [address] [address] [place], [address], 04/25/2025 16:54:30 04/23/20 25 04/25/2025 RESPI RATOR Y ALLER GY PANEL REGIO N VIII W/REF L cottonwood (T14) IgE <0.10 kU/L normal Not Available [facility] [address] [address] [place], [address], 04/25/2025 16:54:30 04/23/20 25 04/25/2025 RESPI RATOR Y ALLER GY PANEL REGIO N VIII W/REF L class 0 Not Available [facility] [address] [address] [place], [address], 04/25/2025 16:54:30 04/23/20 25 04/25/2025 RESPI RATOR Y ALLER GY PANEL REGIO N VIII W/REF L white ricarda (T15) IgE <0.10 kU/L normal Not Available [address], [address], 04/25/2025 16:54:30 04/23/20 25 04/25/2025 RESPI RATOR Y ALLER GY PANEL REGIO N VIII W/REF L class 0 Not Available [address], [address], 04/25/2025 16:54:30 04/23/20 25 04/25/2025 RESPI RATOR Y ALLER GY PANEL REGIO N VIII W/REF L oak (T7) IgE <0.10 kU/L normal Not Available [address], [address], 04/25/2025 16:54:30 04/23/20 25 04/25/2025 RESPI RATOR Y ALLER GY PANEL REGIO N VIII W/REF L class 0 Not Available [address], [address], 04/25/2025 16:54:30 04/23/20 25 04/25/2025 RESPI RATOR Y ALLER GY PANEL REGIO N VIII W/REF L elm (T8) IgE <0.10 kU/L normal Not Available [address], [address], 04/25/2025 16:54:30 04/23/20 25 04/25/2025 RESPI RATOR Y ALLER GY PANEL REGIO N VIII W/REF L class 0 Not Available [address], [address], 04/25/2025 16:54:30 04/23/20 25 04/25/2025 RESPI RATOR Y ALLER GY PANEL REGIO N VIII W/REF L hickory/peca n tree (T22) IgE <0.10 kU/L normal Not Available [address], [address], 04/25/2025 16:54:30 04/23/20 25 04/25/2025 RESPI RATOR Y ALLER GY PANEL REGIO N VIII W/REF L class 0 Not Available [address], [address], 04/25/2025 16:54:30 04/23/20 25 04/25/2025 RESPI RATOR Y ALLER GY PANEL REGIO N VIII W/REF L white mulberry (T70) IgE <0.10 kU/L normal Not Available [address], [address], 04/25/2025 16:54:30 04/23/20 25 04/25/2025 RESPI RATOR Y ALLER GY PANEL REGIO N VIII W/REF L class 0 Not Available [address], [address], 04/25/2025 16:54:30 04/23/20 25 04/25/2025 RESPI RATOR Y ALLER GY PANEL REGIO N VIII W/REF L bermuda grass (g2) IgE <0.10 kU/L normal Not Available [address], [address], 04/25/2025 16:54:30 04/23/20 25 04/25/2025 RESPI RATOR Y ALLER GY PANEL REGIO N VIII W/REF L class 0 Not Available [address], [address], 04/25/2025 16:54:30 04/23/20 25 04/25/2025 RESPI RATOR Y ALLER GY PANEL REGIO N VIII W/REF L jeannette grass (g6) IgE <0.10 kU/L normal Not Available [address], [address], 04/25/2025 16:54:30 04/23/20 25 04/25/2025 RESPI RATOR Y ALLER GY PANEL REGIO N VIII W/REF L class 0 Not Available [address] [address] [place], [address], 04/25/2025 16:54:30 04/23/20 25 04/25/2025 RESPI RATOR Y ALLER GY PANEL REGIO N VIII W/REF L common ragweed (short) (W1) IgE <0.10 kU/L normal Not Available [address], [address], 04/25/2025 16:54:30 04/23/20 25 04/25/2025 RESPI RATOR Y ALLER GY PANEL REGIO N VIII W/REF L class 0 Not Available [address], [address], 04/25/2025 16:54:30 04/23/20 25 04/25/2025 RESPI RATOR Y ALLER GY PANEL REGIO N VIII W/REF L rough pigweed (W14) IgE <0.10 kU/L normal Not Available [address], [address], 04/25/2025 16:54:30 04/23/20 25 04/25/2025 RESPI RATOR Y ALLER GY PANEL REGIO N VIII W/REF L class 0 Not Available [address] [address] [place], [address], 04/25/2025 16:54:30 04/23/20 25 04/25/2025 RESPI RATOR Y ALLER GY PANEL REGIO N VIII W/REF L czech thistle (W11) IgE <0.10 kU/L normal Not Available [address] [address] [place], [address], 04/25/2025 16:54:30 04/23/20 25 04/25/2025 RESPI RATOR Y ALLER GY PANEL REGIO N VIII W/REF L class 0 Not Available [address], [address], 04/25/2025 16:54:30 04/23/20 25 04/25/2025 RESPI RATOR Y ALLER GY PANEL REGIO N VIII W/REF L rough quezada elder (W16) IgE <0.10 kU/L normal Not Available [address], [address], 04/25/2025 16:54:30 04/23/20 25 04/25/2025 RESPI RATOR Y ALLER GY PANEL REGIO N VIII W/REF L class 0 Not Available [address], [address], 04/25/2025 16:54:30 04/23/20 25 04/25/2025 RESPI RATOR Y ALLER GY PANEL REGIO N VIII W/REF L mouse urine proteins (E72) IgE <0.10 kU/L normal Not Available [address], [address], 04/25/2025 16:54:30 04/23/20 25 04/25/2025 RESPI RATOR Y ALLER GY PANEL REGIO N VIII W/REF L class 0 Not Available [address], [address], 04/25/2025 16:54:30 04/23/20 25 04/25/2025 RESPI RATOR Y ALLER GY PANEL REGIO N VIII W/REF L immunoglobul in E 61 kU/L <or=11 4 normal Not Available [address], [address], 04/25/2025 16:54:30 04/23/20 25 04/25/2025 FOOD AND TREE NUT ALLER GY PANEL egg white (F1) IgE <0.10 kU/L normal Not Available [address], [address], 04/25/2025 16:54:32 04/23/20 25 04/25/2025 FOOD AND TREE NUT ALLER GY PANEL class 0 Not Available [address], [address], 04/25/2025 16:54:32 04/23/20 25 04/25/2025 FOOD AND TREE NUT ALLER GY PANEL peanut (F13) IgE <0.10 kU/L normal Not Available [address], [address], 04/25/2025 16:54:32 04/23/20 25 04/25/2025 FOOD AND TREE NUT ALLER GY PANEL class 0 Not Available [address], [address], 04/25/2025 16:54:32 04/23/20 25 04/25/2025 FOOD AND TREE NUT ALLER GY PANEL wheat (F4) IgE <0.10 kU/L normal Not Available [address], [address], 04/25/2025 16:54:32 04/23/20 25 04/25/2025 FOOD AND TREE NUT ALLER GY PANEL class 0 Not Available [address], [address], 04/25/2025 16:54:32 04/23/20 25 04/25/2025 FOOD AND TREE NUT ALLER GY PANEL walnut (F256) IgE <0.10 kU/L normal Not Available [address], [address], 04/25/2025 16:54:32 04/23/20 25 04/25/2025 FOOD AND TREE NUT ALLER GY PANEL class 0 Not Available [address], [address], 04/25/2025 16:54:32 04/23/20 25 04/25/2025 FOOD AND TREE NUT ALLER GY PANEL codfish (F3) IgE <0.10 kU/L normal Not Available [address], [address], 04/25/2025 16:54:32 04/23/20 25 04/25/2025 FOOD AND TREE NUT ALLER GY PANEL class 0 Not Available [address], [address], 04/25/2025 16:54:32 04/23/20 25 04/25/2025 [employer] GY PANEL cow's milk (F2) IgE <0.10 kU/L normal Not Available [address], [address], 04/25/2025 16:54:32 04/23/20 25 04/25/2025 FOOD [employer] GY PANEL class 0 Not Available [address], [address], 04/25/2025 16:54:32 04/23/20 25 04/25/2025 FO[employer] GY PANEL soybean (F14) IgE <0.10 kU/L normal Not Available [address], [address], 04/25/2025 16:54:32 04/23/20 25 04/25/2025 FO[employer] GY PANEL class 0 Not Available [address], [address], 04/25/2025 16:54:32 04/23/20 25 04/25/2025 FO[employer] GY PANEL shrimp (F24) IgE <0.10 kU/L normal Not Available [address], [address], 04/25/2025 16:54:32 04/23/20 25 04/25/2025 FOOD [employer] GY PANEL class 0 Not Available [address], [address], 04/25/2025 16:54:32 04/23/20 25 04/25/2025 FO[employer] GY PANEL scallop (F338) IgE <0.10 kU/L normal Not Available [address], [address], 04/25/2025 16:54:32 04/23/20 25 04/25/2025 FOOD [employer] GY PANEL class 0 Not Available [address], [address], 04/25/2025 16:54:32 04/23/20 25 04/25/2025 FO[employer] GY PANEL sesame seed (F10) IgE 0.20 kU/L high Not Available [address], [address], 04/25/2025 16:54:32 04/23/20 25 04/25/2025 FO[employer] GY PANEL class 0/1 Not Available [address], [address], 04/25/2025 16:54:32 04/23/20 25 04/25/2025 FO[employer] GY PANEL hazelnut (F17) IgE <0.10 kU/L normal Not Available [address], [address], 04/25/2025 16:54:32 04/23/20 25 04/25/2025 FOOD [employer] GY PANEL class 0 Not Available [address], [address], 04/25/2025 16:54:32 04/23/20 25 04/25/2025 FO[employer] GY PANEL cashew nut (F202) IgE <0.10 kU/L normal Not Available [address], [address], 04/25/2025 16:54:32 04/23/20 25 04/25/2025 FOOD AND TREE NUT ALLER GY PANEL class 0 Not Available [address], [address], 04/25/2025 16:54:32 04/23/20 25 04/25/2025 FOOD AND TREE NUT ALLER GY PANEL almond (F20) IgE <0.10 kU/L normal Not Available [address], [address], 04/25/2025 16:54:32 04/23/20 25 04/25/2025 FOOD AND TREE NUT ALLER GY PANEL class 0 Not Available [address], [address], 04/25/2025 16:54:32 04/23/20 25 04/25/2025 FOOD AND TREE NUT ALLER GY PANEL salmon (F41) IgE <0.10 kU/L normal Not Available [address], [address], 04/25/2025 16:54:32 04/23/20 25 04/25/2025 FOOD AND TREE NUT ALLER GY PANEL class 0 Not Available [address] [address] [place], [address], 04/25/2025 16:54:32 04/23/20 25 04/25/2025 FOOD AND TREE NUT ALLER GY PANEL tuna (F40) IgE <0.10 kU/L normal Not Available [address] [place], [address], 04/25/2025 16:54:32 04/23/20 25 04/25/2025 FOOD AND TREE NUT ALLER GY PANEL class 0 Not Available [address], [address], 04/25/2025 16:54:32 04/23/20 25 04/25/2025 FOOD AND TREE NUT ALLER GY PANEL brazil nut (F18) IgE <0.10 kU/L normal Not Available [address], [address], 04/25/2025 16:54:32 04/23/20 25 04/25/2025 FOOD AND TREE NUT ALLER GY PANEL class 0 Not Available [address], [address], 04/25/2025 16:54:32 04/23/20 25 04/25/2025 FOOD AND TREE NUT ALLER GY PANEL macadamia nut (rf345) IgE <0.10 kU/L normal Not Available [address], [address], 04/25/2025 16:54:32 04/23/20 25 04/25/2025 FOOD AND TREE NUT ALLER GY PANEL class 0 Not Available [address], [address], 04/25/2025 16:54:32 04/23/20 25 04/25/2025 INTER PRETA TION interpretati on Speci fic Level of Aller gen IGE Class kU/L Speci fic IGE Antib neftaly ----- ----- ---- ----- ----- ----- ---- 0 <0.10 Absen t/Und etect able 0/1 0.10- 0.34 Very Low Level 1 0.35- 0.69 Low Level 2 0.70- 3.49 Moder ate Level 3 3.50- 17.4 High Level 4 17.5- 49.9 Very High Level 5 50-10 0 Very High Level 6 >100 Very High Level The clini wenceslao relev ance of aller gen resul ts of 0.10- 0.34 kU/L are undet ermin ed and inten ded for speci alist use. Aller gens denot ed with a inclu de resul ts using one or more janet te speci fic reage nts. In those cases , the test was devel oped and its janet tical perfo rmanc e george cteri stics have been deter mined by [facility]. It has not been clear ed or appro [place] by the U.S. Food and Drug Admin istra tion. This assay has been valid ated pursu ant to the CLIA regul ation s and is used for clini wenceslao purpo ses. Not Available [employer] [facility] [address] [place], [address], 04/25/2025 16:54:34 01/11/20 25 01/10/2025 elect rocar diogr am No observ ation record ed. [facility] ([facility]) [address] [place], [address], 01/10/2025 17:13:55 01/12/20 25 01/10/2025 elect rocar diogr am No observ ation record ed. [facility] ([facility]) [address] [place], [address], 01/14/2025 09:12:23 02/20/20 25 01/31/2025 event monit or No observ ation record ed. [email or web address] [facility] [address] [place], [address], 02/21/2025 18:17:01 Result Notes None recorded. Problems Name Problem SNOMED Code Status Onset Date Resolution Date Notes Provider Name and Address Organization Details Recorded Time Pulmonar y emphysem a 89382351 Completed 202004/14/2021 EMPHYSEM A/COPD - Status is Resolved ; Resolved Date: 04/14/20; Recorded 04/14/20 3:48PM by Katie Dobbs PA-C, Annotati on/Adden dum; Promoted ; acuity set as *; Not Available [facility] 3 03:08:35 Dyspnea 711651567 Completed 202004/14/2021 DYSPNEA ON EXERTION - Status is Resolved ; Resolved Date: 04/14/20; Recorded 04/14/20 3:48PM by Katie Dobbs PA-C, Annotati on/Adden dum; Promoted ; acuity set as *; Not Available [facility] 3 03:08:35 Acute exacerba tion of chronic obstruct nile pulmonar y disease 073437129 Completed 202004/14/2021 CHRONIC OBSTRUCT NILE ASTHMA WITH EXACERBA TION - Status is Inactive ; Recorded 04/14/20 3:48PM by Katie Dobbs PA-C, Annotati on/Adden dum; Promoted ; acuity set as *; [facility] 07:25:18 Dysthymi a 81247686 Completed 202004/14/2021 MALAISE AND FATIGUE - Status is Resolved ; Resolved Date: 04/14/20; Recorded 04/14/20 3:48PM by Katie Dobbs PA-C, Annotati on/Adden dum; Promoted ; acuity set as *; Not Available [facility] 3 03:08:35 Headache 16121026 Completed 202111/25/2021 FACIAL PAIN - Status is Inactive ; Recorded 11/26/19 9:29AM by Katie Dobbs PA-C, Annotati on/Adden dum; Promoted ; acuity set as *; HEADACH E - Status is Resolved ; Resolved Date: 04/14/20; Recorded 04/14/20 3:48PM by Katie Dobbs PA-C, Adelaati on/Adden dum; Promoted ; acuity set as *; ; Start Date : 04/14/20 Not Available [facility] 3 03:08:34 Clinical finding Completed 202110/18/2024 TYPE 2 DIABETES MELLITUS WITHOUT COMPLICA TION, WITHOUT LONG-TER M CURRENT USE OF INSULIN; Date: 03/16/20 22; Recorded 07/29/20 8:37AM by Rossy Wong LPN, Office Visit; Promoted ; acuity set as *; ROSSY torrez [facility] 5 08:24:02 Periapic al abscess without sinus tract Completed 202107/29/2022 DENTAL ABSCESS - Status is Inactive ; Recorded 07/29/20 3:55PM by Katie Dobbs PA-C, Annotati on/Adden dum; Promoted ; acuity set as *; Not Available [facility] 3 03:08:34 Anxiety state 080685720 Active 2021 ANXIETY; Impressi on: pre procedur al.; Recorded 07/29/20 8:37AM by Rossy Wong LPN, Office Visit; Promoted ; acuity set as *; ROSSY torrez [facility] 5 07:23:56 Primary malignan t neoplasm of female breast 36689150 Completed 202110/18/2024 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; Recorded 07/29/20 8:37AM by Rossy Wong LPN, Office Visit; Promoted ; acuity set as *; ROSSY torrez [facility] 5 08:24:02 Hyperten sive disorder 58694010 Completed 202110/18/2024 HYPERTEN MUMTAZ; Recorded 07/29/20 8:37AM by Rossy Wong LPN, Office Visit; Promoted ; acuity set as *; ROSSY torrez [facility] 5 08:24:02 Carotid artery occlusio n 209472795 Active 2021 CAROTID STENOSIS , BILATERA L; Recorded 07/29/20 8:37AM by Rossy Wong LPN, Office Visit; Promoted ; acuity set as *; ROSSY torrez, [facility], [facility] 5 07:23:58 Gastroes ophageal reflux disease 270627589 Active 2021 GERD (GASTROE SOPHAGEA L REFLUX DISEASE) ; Recorded 07/29/20 22 8:37AM by Rossy Wong LPN, Office Visit; Promoted ; acuity set as *; ROSSY torrez, [facility], [place] 5 07:24:10 Hypothyr oidism 91358152 Active 2021 SUBCLINI WENCESLAO HYPOTHYR OIDISM; Recorded 07/29/20 22 8:37AM by Rossy Wong LPN, Office Visit; Promoted ; acuity set as *; HYPOTHY ROIDISM; Recorded 07/29/20 22 8:37AM by Rossy Wong LPN, Office Visit; Promoted ; acuity set as *; [facility] 5 07:24:19 Chronic obstruct nile pulmonar y disease 19650473 Completed 202210/18/2024 [facility] 5 20:32:52 Hyperlip idemia 78756678 Active 2022 ROSSY torrez [facility], [facility] 5 07:24:14 Carotid artery stenosis 33480999 Completed 202210/18/2024 [facility] 5 08:24:02 Sprain of left foot 57640604105 913178 Completed 202211/09/2024 Removal Reason: resolved ROSSY torrez [facility], [facility] 5 07:25:16 Essentia l hyperten mumtaz 06736217 Active 2023 ROSSY HARAMONFNER null, [facility] 5 07:24:07 Neoplasm of uncertai n behavior of skin of face 50051578 Completed 202311/09/2024 Removal Reason: resolved ROSSY HAEFFNER null, [facility] 5 07:24:49 Chronic diastoli c heart failure 666261245 Active 2023 ROSSY HAEFFNER null, [facility] 5 07:24:01 Nicotine dependen ce 28179937 Active 2023 ROSSY HAEFFBIANCA null, [facility] 5 07:24:54 Peripher al vascular disease 229599130 Active 2023 ROSSY HARAMONFNER null, [facility] 5 07:24:59 Anxiety 50386700 Completed 202310/18/2024 ROSSY HAEFFNER null, [facility] 5 08:24:02 Osteopor osis 17746291 Active 2023 ROSSY HAEFFNER null, [facility] 5 07:24:56 Chronic obstruct nile pulmonar y disease 14271671 Active 2024 ROSSY HAEFFNER null, [facility] 5 20:32:52 Moderate chronic obstruct nile pulmonar y disease 150205548 Active 2024 ROSSY HAEFFNER null, [facility] 5 13:44:10 Daytime somnolen ce 00348469571 0 Active 2024 ROSSY torrez [facility] 17:55:08 Chronic atrial fibrilla tion 406904931 Active 2024 [facility] 11:29:09 Notes:Some problems listed i n Documents: #[id number], #[id number] could not be added to this patient's chart. Please review these documents and add these problems to the patient's chart manually as needed. Problem Notes None recorded. Procedures Surgical History Date Name Laterality Status Provider Name and Address Organization Details Recorded Time 11/29/19 25 cardiac catheterization completed KATIE DOBBS PA-C [address] [place] [address], [address], [facility] 12/25/2024 11:55:14 11/03/19 25 screening for malignant neoplasm of colon completed ROSSY VALIENTEBIANCA [facility] 11/08/2024 08:44:37 10/29/19 25 echocardiography completed KATIE DOBBS PA-C [address] [place] [address], [phone], [facility] 12/25/2024 11:55:48 07/05/20 24 bone density scan completed ROSSY VALIENTEBIANCA [facility] 07/05/2024 16:01:33 06/28/20 24 radionuclide imaging of perfusion of myocardium under exercise stress completed KATIE DOBBS PA-C [address] [place] [address], [phone], [facility] 07/27/2024 11:03:42 06/26/20 24 screening for malignant neoplasm of lung completed ROSSY WONG [facility], [facility]. 06/27/2024 12:26:23 02/03/20 24 jr shave biopsy completed KATIE DOBBS PA-C [address] [place], [address], [facility], [place] 02/03/2024 14:01:46 05/27/20 23 jr cryo warts completed KATIE DOBBS PA-C [address] [place], [address], [facility], [place] 05/27/2023 10:00:16 03/22/20 14 mammography completed ROSSY WONG [facility], [facility] 06/12/2024 10:22:19 Imaging Results None recorded. Procedure Notes None recorded. Medical Equipment None Reported. Allergies Allergen ID Allergen Name Allergen Category Reaction Reaction Severity Criticality Documentation Date Start Date Code Code System Note Provider Name and Address Organization Details Recorded Time 1156 Benadryl medicatio n Not available Not available Not available 12/31/202214666 7 RxNorm MCKALE JACEK [facility], [facility] 3 16:55:59 1878 Substance with sulfonami de structure and antibacte rial mechanism of action (substanc e) medicatio n Not available Not available Not available 01/13/2023 02317 8003 SNOMED [facility] 3 12:13:44 53280 acetamino phen / diphenhyd ramine / pseudoeph edrine medicatio n rash Not available Not available 04/23/2023 26988 6 RxNorm React ion: Rash; Comme nt: Recor ded 07/29 8:37A M by Yocasta de la vega, [employer], Offic e Visit ; Promo elva; Signi anneliese ce: *; ; JAKE torrez [facility], [facility] 3 18:00:19 [address] doxycycli ne Not available Not available Not available Not available 07/19/2023 3640 RxNorm ROSSY torrez [facility], [place] 13:14:14 16755 diphenhyd ramine medicatio n Not available Not available [facility] 08/11/20252024 3498 RxNorm Not Available [facility] External Data Service - [facility] 17:30:45 67902 sulfabenz amide Not available Not available Not available [facility] 08/11/20252024 73253 RxNorm Not Available [facility] External Data Service - [facility] 17:30:45 Medications Name Sig Start Date Stop [...] release 24 hr daily 10/18 completed vo KM/dh; Recorded 07/29/20 3:53PM by Katie Dobbs PA-C, Office Visit; Refill Quantity : [...] propionat e 50 mcg/actua tion nasal spray,mabel [place] eacn nostril bid 11/29 completed Not Available [...] daily, as needed 10/18 completed vo KM/ /will; 00246; Recorded 10/29/19 8:31AM by Rossy Wong LPN (Authori zejuanito through Katie Dobbs PA-C), Refill Request; Refill Quantity : [...] Not Available Softclix Lancets daily 09/12 completed [facility]/; [address]; Recorded 12/02/19 2:56PM by Rossy Wong LPN (Authori binh through Katie Dobbs PA-C), Refill Request; Mail Order Quantity [...] Available Not Available atenolol daily 10/18 completed 54807; Recorded 07/29/20 8:37AM by Rossy Wong LPN (Authori binh through Katie Dobbs PA-C), Office Visit; Mail Order Quantity : 90 Tablet; Refill Quantity : 0; Not Available Not Available Not Available isosorbid e 01/13 completed Not Available Not Available Not Available metoprolo l succinate 01/13 completed Not Available Not Available Not Available lovastati n 01/13 completed Not Available Not Available Not Available [facility] Levothyro xine Sodium daily 06/21 completed 73105; Recorded 07/29/20 8:37AM by Rossy Wong LPN (Authori binh through Katie Dobbs PA-C), Office Visit; Mail Order Quantity : 90 Tablet; Refill Quantity : 0; Not Available Not Available Not Available cilostazo l 01/13 completed Not Available Not Available Not Available Celebrex daily 10/18 completed Recorded 07/29/20 3:46PM by Katie Dobbs PA-C, Office Visit; Refill Quantity : [...] days. 01/24 completed enrollme nt # is [id number] $500/mon th Not Available Not Available Not Available Vitals Date Recorded Body height Body mass index (BMI) Body weight Oxygen saturation Inhaled oxygen flow rate Heart rate Respiratory rate Body temperature Systolic And Diastolic Provider Name and Address Organization Details Last Updated DateTime 5 154.94 cm 28.7 kg/m2 40932.0 4 g 96 % 3 L/min 86 /min 20 /min 98 [degF] 146/80 mm[Hg] [facility] 11:37:10 Date Recorded Body height Body mass index (BMI) Body weight Oxygen saturation Inhaled oxygen flow rate Heart rate Respiratory rate Body temperature Systolic And Diastolic Provider Name and Address Organization Details Last Updated DateTime 5 154.94 cm 28.9 kg/m2 99361.6 3 g 93 % 3 L/min 88 /min 18 /min 98 [degF] 138/80 mm[Hg] [facility] 5 14:19:14 Date Recorded Body height Body mass index (BMI) Body weight Oxygen saturation Inhaled oxygen flow rate Heart rate Respiratory rate Body temperature Systolic And Diastolic Provider Name and Address Organization Details Last Updated DateTime 5 154.94 cm 29.5 kg/m2 71748.4 1 g 95 % 3 L/min 86 /min 20 /min 97.9 [degF] 140/80 mm[Hg] ROSSY [facility] 5 12:04:49 Date Recorded Body height Body mass index (BMI) Body weight Oxygen saturation Inhaled oxygen flow rate Heart rate Respiratory rate Body temperature Systolic And Diastolic Provider Name and Address Organization Details Last Updated DateTime 5 154.94 cm 29.7 kg/m2 26072 g 97 % 4 L/min 82 /min 20 /min 98 [degF] 136/80 mm[Hg] ROSSY HAEFFNER [facility] 5 14:04:33 Date Recorded Body height Body mass index (BMI) Body weight Oxygen saturation Inhaled oxygen flow rate Heart rate Respiratory rate Body temperature Systolic And Diastolic Provider Name and Address Organization Details Last Updated DateTime 5 154.94 cm 28.9 kg/m2 32279.6 3 g 93 % 2 L/min 80 /min 18 /min 98 [degF] 130/80 mm[Hg] ROSSY WONG [facility] 5 14:32:21 Social History Question Answer Notes LastModified by [employer] ion Details LastModified Time Tobacco Smoking Status Current Every Day Smoker ADRIANNABENITO GHAZALA torrez [facility] 08/16/2024 11:52:43 What Was The Date Of Your Most Recent Tobacco Screening? 10/19/2024 [email or web address] Information not available 10/19/2024 What Is Your Current Pack Years? 30ormorepacky ears [email or web address] Information not available 10/19/2024 How Much Tobacco Do You Smoke? 0.5 PPD [email or web address] Information not available 10/19/2024 Sex: Unknown Functional Status Question Answer Note LastModified by [employer] Details LastModified Time Do you use any [...] adjuvanted, trivalent, PF 5 completed ROSSY torrez [facility] 07/31/2025 15:22:40 RSV, bivalent, protein subunit RSVpreF, diluent reconstituted, 0.5 mL, PF 5 completed ROSSY torrez [facility] 07/31/2025 15:22:41 influenza, split (incl. purified surface antigen) 0 completed Not Available [facility] 07/31/2025 14:28:24 pneumococcal polysaccharide PPV23 0 completed Not Available [facility] 07/31/2025 14:28:24 Influenza, split virus, trivalent, preservative 2 completed Not Available [facility] 07/31/2025 14:28:24 Influenza, high-dose, trivalent, PF 0 completed Not Available [facility] 07/31/2025 14:28:24 Pneumococcal conjugate PCV 13 0 completed Not Available [facility] 07/31/2025 14:28:24 COVID-19, mRNA, LNP-S, PF, 100 mcg/0.5mL dose or 50 mcg/0.25mL dose 1 completed Not Available [facility] 07/31/2025 14:28:24 COVID-19, mRNA, LNP-S, PF, 100 mcg/0.5mL dose or 50 mcg/0.25mL dose 1 completed Not Available [facility] 07/31/2025 14:28:24 Pneumococcal conjugate PCV20, polysaccharide WLN930 conjugate, adjuvant, PF 2 completed Not Available [facility] 07/31/2025 14:28:24 Influenza, high-dose, quadrivalent, PF 2 completed Not Available [facility] 07/31/2025 14:28:24 Influenza, high-dose, quadrivalent, PF 3 completed Not Available [facility] 07/31/2025 14:28:24 tetanus toxoid, unspecified formulation 2 completed Not Available [facility] 04/23/2023 02:23:22 pneumococcal, unspecified formulation 2 completed Not Available [facility] 04/23/2023 02:23:22 Influenza, split virus, trivalent, preservative 1 completed Not Available [facility] 04/23/2023 02:23:22 pneumococcal polysaccharide PPV23 6 completed [facility] Available [facility] 04/23/2023 02:23:22 Influenza, split virus, trivalent, preservative 2 completed Not Available [facility] 04/23/2023 02:23:22 Past Encounters Encounter ID Performer Location Encounter Start Date Encounter Closed Date Diagnosis/Indication Diagnosis SNOMED-CT Code Diagnosis ICD10 Code Diagnosis IMO Codes Diagnosis Note [id number] KATIE DOBBS PA-C [facility] ([facility]) [address] [place] [id number] 12/31/2022 16:29:20 01/08/2023 23:02:26 Acute maxillary sinusitis 71510649 J01.00 [id number] KATIE DOBBS PA-C [facility] ([facility]) [address] [place] [id number] 01/13/2023 11:43:00 01/18/2023 13:11:46 Chronic obstructive pulmonary disease 60073140 J44.9 Coronary arteriosclerosis 65560799 I25.10 Peripheral vascular disease 419672513 I73.9 Acquired thrombophilia 381796650 D68.69 Hyperlipidemia 04878307 E78.5 Chronic at rial fibrillation 098674361 I48.20 Angina pectoris 49869656 0 I20.9 [id number] KATIE DOBBS PA-C [facility] ([facility]) [address] [place] [id number] 05/04/2023 14:55:22 05/04/2023 18:24:24 Insect bite reaction 115023748 T63.481A Sprain of left ankle 411 6646878 2603938 S93.402S followed by Dr. Calvo Nicotine dependence 5629 4008 F17.200 no desire to quite.CCA form filled out during today's office visit [id number] KATIE DOBBS PA-C [facility] ([facility]) [address] [place] [id number] 05/27/2023 09:17:03 05/27/2023 13:43:49 Actinic keratosis 697989832 L57.0 see procedure note [id number] KATIE DOBBS PA-C [facility] ([facility]) [address] [place] [id number] 5 06/17/2023 09:53:51 06/17/2023 10:41:50 Pain of left ankle joint 0238788309 5001325 M25.572 In home care referal to help with IADLS she is unable to perform due to injury Pain in left foot 739484 6768 25919 M79.672 Failure of PT and xray and CT and time to help with pain and swellingNe w RX of boot and knee scooter. Expressed the extreme importance that she wear her boot at all times except showering and sleep. Pain of left calf 626496 0851 545520 M79.093 [id number] Ubaldo Son MD [facility] ([facility] [address] [place] [id number] 06/21/2023 17:35:15 06/28/2023 10:32:51 Pain in left foot 6783450237 92630 M79.672 Sprain of left foot 1183 836364 0911872 S93.602A X-rays were obtained and no obvious [...] with PCP if symptoms do not improve. [id number] KATIE DOBBS PA-C [facility] ([facility]) [address] [place] [id number] 06/29/2023 11:55:06 06/29/2023 14:33:38 [id number] KATIE DOBBS PA-C [facility] ([facility] [address] [place] [id number] 5 07/14/2023 10:21:25 08/06/2023 23:08:38 Acute maxillary sinusitis 28641473 J01.00 Cough 31335619 R05.9 flu and covid are negative. [id number] NANCY BRADY [facility] ([facility] [address] [place] [id number] 5 09/27/2023 17:47:12 09/28/2023 14:26:53 Acute upper respiratory infection 61485783 J06.9 [id number] KATIE DOBBS PA-C [facility] ([facility] [address] [place] [id number] 10/18/2023 10:41:08 10/18/2023 14:54:37 Acute exacerbation of chronic obstructive pulmonary disease 584080300 J44.1 Will try to get her in SNF for rehabIf fails or not qualifies then will refer for Home Health for nursing and rehab.No pnuemonia seen on CXR.Encour aged her to use her Spriva and Advair faithfully which she has not been.She is finishing doxycyclin e at home so no new antibiotic s. Influenza caused by Influenza A virus 267618412 J09.X2 Chronic di astolic heart failure 989437808 I50.32 Essential hypertension 69273864 I10 updated meds per recent hospital stay History of malignant neoplasm of breast 169705946 Z85.3 routine screening Neoplasm o f uncertain behavior of skin of face 83167805 D48.5 left check >1 cm raised lesion growing quickly. Peripheral vascular disease 297279636 I73.9 Hyperlipidemia 76104261 E78.5 Nicotine dependence 5629 4008 F17.200 no desire to quite.CCA form filled out during today's office visit Hospital i npatient stay within past 30 days 9751701942 106 Z76.89 Chronic ob structive pulmonary disease 97552885 J44.9 [id number] KATIE DOBBS PA-C [facility] ([facility] [address] [place] [id number] 11/01/2023 09:51:41 11/01/2023 19:27:40 Chronic obstructive pulmonary disease 62488124 J44.9 face to face for portable O2. She is not able to handle the O2 canisters and would like a more portable unit for doctor's appts Essential hypertension 67777943 I10 stopped her amlodipine due to low pressures and her lisinopril due to cough.f/u in one month with home BP to check and see if need to add back an ARB Intermitte nt palpitations 903601243 R00.2 feels heart racing and skipping beats Fatigue 41329581 R53.83 [id number] KATIE DOBBS PA-C [facility] ([facility]) [address] [place] [id number] 11/29/2023 10:33:51 11/29/2023 11:49:56 Essential hypertension 44563008 I10 stopped her amlodipine due to low pressures and her lisinopril due to cough.f/u in one month with home BP to check BPs running good at home 120/70s. Allergic rhinitis 700571 04 J30.9 [id number] KATIE DOBBS PA-C [facility] ([facility]) [address] [place] [address] [phone] 5 02/03/2024 09:42:01 02/03/2024 14:14:27 Neoplasm of uncertain behavior of skin 81930970 D48.5 will call with path reportkeep clean and covered. Call if any S/S of infection [id number] KATIE DOBBS PA-C [facility] ([facility]) [address] [place] [address] [phone] 5 03/09/2024 10:21:45 03/09/2024 11:06:18 Chronic obstructive pulmonary disease 36608706 J44.9 stable Actinic keratosis L57.0 spot is healing. flesh colored. flat. no features of reccurence . continue to monitor. if appears to be growing back then would refer to derm or surgery for more complete excision [id number] KATIE DOBBS PA-C [facility] ([facility]) [address] [place] [address] [phone] 5 05/22/2024 10:44:11 05/22/2024 15:15:36 Chest pain 12282093 R07.9 diff dx include angina, pleurisy, esphageal spasm, costochond ritis.CXR was normal today COPD changes, eKG was normal no acute ST elevation or depression CBC CMP ok so far. [id number] KATIE DOBBS PA-C [facility] ([facility]) [address] [place] [address] 89923-862 5 06/12/2024 10:21:38 06/24/2024 21:37:56 Generalized anxiety disorder 14382745 F41.1 told pt I would not to intermediate card tender benzos. she does not want to do daily SSRI to we agreed to just monitor for now. Nicotine dependence 5629 4008 F17.200 no desire to quit. Screening for malignant neoplasm of colon 339114257 Z12.11 Osteopenia 932791333 M85 .80 Adult heal th examination 890684688 Z00.00 [id number] KATIE DOBBS PA-C [facility] ([facility]) [address] [place] [address] [phone] 5 07/27/2024 10:17:09 07/27/2024 11:11:26 Atypical chest pain 910731634 R07.89 Reassured pt that she had a normal stress test just a few weeks ago. She had normal cardiac cath in 2021. She can fu with Dr. Anderson. To ER if CP persists despite one nitro. Trigger fi nger of left hand [id number] 3707410 M65.30 left thumb [id number] Getachew Waller MD [facility] ([facility]) [address] [place] [address] [phone] 5 08/16/2024 11:05:50 08/16/2024 13:00:07 Screening for malignant neoplasm of colon 832293585 Z12.11 [id number] NANCY RICK [facility] ([facility]) [address] [place] [address] [phone] 5 09/25/2024 11:18:29 09/25/2024 12:16:46 Acute exacerbation of chronic obstructive pulmonary disease 267083247 J44.1 Wear oxygen as prescribed . RTC with any new or worsening symptoms. Report to ER with any worsening shortness of breath. [id number] KATIE DOBBS PA-C [facility] ([facility]) [address] [place] [address] [phone] 5 10/19/2024 09:45:15 10/19/2024 10:42:30 Chronic obstructive pulmonary disease 36237576 J44.9 Face to Face for O2. Pt with need for O2 due to chronic COPD. On Room air she was 82%. With 2 L she held steady at 96%.I recommend her remain on her home concentrat or and she needs a portable O2 for times she leaves the house. Failure to have O2 would result in respirator y failure.(a dapt brandon with windy delgado) Acute exac erbation of chronic obstructive pulmonary disease 125963713 J44.1 explained she must use her chronic inhalors daily and not just her rescue inhalor. She is not always compliant with her meds. Chronic di astolic heart failure 304657022 I50.32 Peripheral vascular disease 771196360 I73.9 CCA form filled out during today's office visit Hyperlipidemia 22971926 E78.5 Nicotine dependence 5629 4008 F17.200 no desire to quit. Essential hypertension 33242499 I10 Long-term oxygen therapy 494816549 Z99.81 Screening for malignant neoplasm of colon 934762825 Z12.11 [id number] KATIE DOBBS PA-C [facility] ([facility]) [address] [place] [address] 5 12/25/2024 10:57:55 12/25/2024 12:24:33 Coronary artery stenosis 326109872 I25.10 Severe chr onic obstructive pulmonary disease 170105968 J44.9 on O2, spiriva and Advair. Hospital i npatient stay within past 30 days 2416354293 106 Z76.89 recommend in home care assessment for pt to help her with ADLS and advanced adls she has difficultl y performing due to her medical conditions .[facility] records reviewed. Meds reconciled and no chagnes made. [id number] KATIE DOBBS PA-C [facility] ([facility]) [address] [place] [address] [phone] 5 01/10/2025 11:20:44 01/10/2025 12:10:25 Intermittent palpitations 793384519 R00.2 76624553 feels heart racing and skipping beats Irregular heart beat 361 697798 I49.9 985690 [id number] KATIE DOBBS PA-C [facility] ([facility]) [address] [place] [address] 5 01/24/2025 14:11:27 01/24/2025 15:22:37 Chronic diastolic heart failure 951615801 I50.32 getting a heart monitor on 5.8.25 Chronic ob structive pulmonary disease 49524437 J44.9 face to face for home health and in home visitor home base head start to help her stay in her home as long as possible in a safe and functional way.In home supportive care 2 hrs a day for 3 days a week. Essential hypertension 76467679 I10 [id number] KATIE DOBBS PA-C [facility] ([facility]) [address] [place] [address] 65826-749 5 04/23/2025 11:51:52 04/24/2025 09:51:52 Allergic bronchitis 393620332 J45.901 25364699 Chronic ob structive pulmonary disease 75048315 J44.9 I feel pt would benefit from hospice/pa lliative care she has severe COPD that is limiting. Allergic rhinitis 521157 04 J30.9 [id number] KATIE DOBBS PA-C [facility] ([facility]) [address] [place] [address] 48156-194 5 05/30/2025 13:55:14 05/31/2025 13:05:08 Atrial fibrillation 22286226 I48.91 847632 on Eliquis, amiodarone and Metoprolol Acute exac erbation of chronic obstructive pulmonary disease 428793206 J44.1 113877 Chronic hy poxemic respiratory failure 964497817 J96.11 Z99.81 4489958377 Chronic hy percapnic respiratory failure 015419489 J96.12 3142510 Post-disch arge follow-up 313167314 Z09 470818 discharge summary reviewed. Meds reconcile. samples of Eliquis given today due to cost being too high. Has upcoming appt with pulmonolog ist.Still on [facility]sp[facility] services. Hospice care 417366904 Z 51.5 82717 [id number] KATIE DOBBS PA-C [facility] ([facility]) [address] [place] [address] [phone] 5 07/31/2025 14:25:14 07/31/2025 15:30:56 Physical examination 7700545 Z00.00 978469 Severe chr onic obstructive pulmonary disease 435050295 J44.9 954668 on O2, spiriva and Advair.on HOSPICE Requires i nfluenza virus vaccination 210635258 Z23 188151 Requires r espiratory syncytial virus vaccination 055134902 Z29.11 160061 Chronic at rial fibrillation 249090649 I48.20 008305 on eliquis, amiodardon e, metoprolol Peripheral arterial disease 697148886 I73.9 412577 statin, plavix, asa, cilostazol Dependence on continuous supplemental oxygen 4762257264 9103 Z99.81 [id number] Health Concerns Section Related Observation LastModified by Organization Detai ls LastModified Time None Recorded Concern Status LastModified by Organization Details LastModified Time None Recorded Advance Directives Directive None Recorded Payers Insurance Date Sequence Insurance Name Policy Number Policy Brown Covered Member ID Brown Member ID Guarantor Name 08/29/2025 1 [place] Cinthia Palacios [id number] Cinthia Palacios 05/30/2025 1 [facility] (MEDICARE REPLACEMENT/A DVANTAGE - PPO) [id number] Cinthia Philip [id number] Cinthia Palacios 05/30/2025 1 [employer] (MEDICARE REPLACEMENT/A DVANTAGE - PPO) Cinthiadomitila Palacios [id number] Cinthiadomitila Palacios 08/29/2025 [place] - [facility] (MEDICARE) Cinthia Palacios [id number] Cinthia Palacios 08/29/2025 1 [employer] (MEDICARE REPLACEMENT/A DVANTAGE - PPO) Cinthia Palacios [id number] Cinthia Palacios 05/30/2025 1 [employer] (MEDICARE REPLACEMENT/A DVANTAGE - PPO) Cinthia Palacios [id number] Cinthia Palacios Notes Date Note Type Note Provider Name and Address Organization Details Recorded Time 5 text/html PalpitationsReported by PatientHPIFor quality, patient reportsirregular,forceful, andpounding. For context, patient reportsexertionalandat rest. For aggravating factors, patient reportsnicotine. For associated symptoms, patient reportschest pain,dyspnea,exertional dyspnea,decline in exercise capacity, andfatigue. For location, patient reportschestandepigastrium. For severity, patient reportsmoderate. For duration, patient reportslasts hours. For onset/timing, patient reportsoccurs dailyandintermittent.no hx of afib. last event monitor 5.24 normal. Home health nurse called yesterday and said pt hac been c/o more frequent bouts of palpatations, about twice a week being harder and more painful. she says they are lasting longer. I had an us on my neck ordered by cardiology havent heard the results. KATIE DOBBS PA-C [address] [place], [address], [facility] 01/10/2025 12:09:42 5 text/html COPDReported by PatientHPI:For aggravating factors, patient reportsworse with cigarette smokingandworse with exertion. For onset/timing, patient reportsmultiple times per day. For duration, patient reportschronic,has noted for years, andconstant. For severity, patient reportsslowly worseningandmoderate. For context, patient reportscigarette smoking. For alleviating factors, patient reportsrelieved with oxygen. I need a referral for home health, ozh at home dc/d me as they wanted me to go on hospice but I am not ready for that. Pt still wants CPR with AED and intubation KATIE DOBBS PA-C [address] [place], [address], [facility] 02/14/2025 13:05:51 5 text/html COPDReported by PatientHPI:For severity, patient reportsvery limitingbut reportsmoderate. For aggravating factors, patient reportsworse with cigarette smokingandworse with exertion. For associated symptoms, patient reportsdyspnea,dyspnea during exertion,decrease in exercise capacity,fatigue,depression , andanxiety. For onset/timing, patient reportsmultiple times per day. For duration, patient reportschronic,has noted for years, andconstant. For context, patient reportscigarette smoking. For alleviating factors, patient reportsrelieved with oxygen. I Have been having a lot of allergy reactions and getting short of breath, like cantaloupe and watermelon is in the rag weed family . I have reactions to them and cucumbers .I need to know what I am allergic to pollens and things .I need to know how to treat myself. KATIE DOBBS PA-C [address] [place], [address], [facility] 04/23/2025 20:59:52 5 text/html Atrial FibrillationReported by PatientHPIFor quality, patient reportspressure,tightness,p ounding, andfluttering. For context, patient reportshypertension. For aggravating factors, patient reportsexercise,nighttime,s tress, andcaffeine. For pain location, patient reportschest. For severity, patient reportsmoderate. For duration, patient reportshas noted for years. For onset/timing, patient reportsdailyandintermittent . For alleviating factors, patient reportsmedication. HOSPITAL FOLLOW UP 05-19-25 ATRIAL FIBnew onset atrial fib. started on amiodorone and her metoprolol was upped. she is on eliquis for anticoag.treated also for COPD exacerbation and has finished her LevaquinStill on hospice services. states she uses her morphine in the AM. it helps relieve the pressure in her chest. KATIE DOBBS PA-C [address] [place], [address], [facility] 05/31/2025 09:34:03 5 text/html Medicare Annual Wellness VisitReported by [...] instead of bid due to cost KATIE DOBBS PA-C [address] [place] [address], [address], [facility] 07/31/2025 15:15:39 OBGyn Episode Ob Episode Information Episode Created Date Number of Fetuses Patient Bloodtype Patient rh Status Prepregnancy Weight lbs Domestic Partner Domestic Partner Phone Father Name Word Processor Status 08/16/20 24 1 DELETED Fetus Data [...]
--- OUTSIDE RECORDS SUMMARY | 2025-09-17 11:18 | XMS_ITS | Encounter Summary ---
Author Organization [facility] Address [address] [place] [address] Care Team Providers Care Mechatronics Engineer Name Role Phone Unavailable Primary Care Provider Unavailabl e Encounter Details Date Type Department Care Team (Late st Contact Info) Description 09/06/2016 Lab Requisition [facility] [place] [address] [address] Colin Gómez DO NO ADDRESS ON FILE Social History Tobacco Use Types Packs/Day Years Used Date Smoking Tobacco: Every Day Cigarettes 1 40 Comments Unknown Sex and Gender Information Value Date Recorded Sex Assigned at Not on file 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 Blood 09/06/2016 8:53 PM INPUT OUTPUT CLERK 09/06/2016 9:41 PM INPUT OUTPUT CLERK us Colin Gómez DO CHEMISTRY ORDERABLES Final Resu lt [facility] CLIA # [id number] [address] [facility] [address] [place] [address] documented in this encounter Visit Diagnoses Not on filedocumented in this encounter
--- OUTSIDE RECORDS SUMMARY | 2025-09-17 11:18 | XMS_ITS | Encounter Summary ---
Author Organization [facility] Address [address] [place] [address] Care Team Providers Care Chief Steward/Stewardess Name Role Phone Unavailable Primary Care Provider Unavailabl e Encounter Details Date Type Department Care Team (Late st Contact Info) Description 06/07/2016 Lab Requisition [facility] [place] [facility] [place] [address] [place] [phone] Bertram Ryder DO NO ADDRESS ON FILE Social History Tobacco Use Types Packs/Day Years Used Date Smoking Tobacco: Every Day Cigarettes 1 40 Comments Unknown Sex and Gender Information Value Date Recorded Sex Assigned at Not on file 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 Gender Identity Not on file Sexual [...] - 30 mm/Hr 06/07/2016 11:23 PM CDT [facility] Blood Collection / Unknown 06/07/2016 9:32 PM CDT 06/07/2016 9:37 PM CDT us Bertram Ryder DO HEMATOLOGY ORDERABLES Final Result [facility] CLIA # [id number] [address] [place] [address] * (ABNORMAL) CBC WITH DIFFERENTIAL (06/07/2016 9:32 PM CDT) WBC 7.6 4.0 - 10.0 K/uL 06/07/2016 10:32 PM [facility] RBC 5.96(H) 3.93 - 5.22 M/uL 06/07/2016 10:32 PM [facility] HEMOGLOBIN 15.8(H) 11.2 - 15.7 g/dL 06/07/2016 10:32 PM [facility] HEMATOCRIT 47.2(H) 34.1 - 44.9 % 06/07/2016 10:32 PM [facility] MCV 79.2(L) 79.4 - 94.8 fL 06/07/2016 10:32 PM [facility] MCH 26.5 25.6 - 32.2 pg 06/07/2016 10:32 PM [facility] MCHC 33.5 32.2 - 35.5 g/dL 06/07/2016 10:32 PM [facility] RDW 16.0(H) 11.0 - 14.5 % 06/07/2016 10:32 PM [facility] RDW-STDEV 46.0 36.9 - 56.9 fL 06/07/2016 10:32 PM [facility] PLATELETS 363(H) 163 - 337 K/uL 06/07/2016 10:32 PM [facility] MPV 10.7 10.0 - 14.8 fL 06/07/2016 10:32 PM [facility] NEUTROPHILS 64 34 - 71 % 06/07/2016 10:32 PM [facility] LYMPHOCYTES 30 19 - 52 % 06/07/2016 10:32 PM [facility] MONOCYTES 6 5 - 13 % 06/07/2016 10:32 PM [facility] EOSINOPHILS 0(L) 1 - 6 % 06/07/2016 10:32 PM [facility] BASOPHILS 0 0 - 1 % 06/07/2016 10:32 PM [facility] NEUTROPHIL ABSOLUTE 4.86 1.56 - 6.13 K/uL 06/07/2016 10:32 PM [facility] LYMPHOCYTE ABSOLUTE 2.25 1.20 - 3.40 K/uL 06/07/2016 10:32 PM [facility] MONOCYTE ABSOLUTE 0.46(H) 0.24 - 0.36 K/uL 06/07/2016 10:32 PM [facility] EOSINOPHIL ABSOLUTE 0.01(L) 0.04 - 0.36 K/uL 06/07/2016 10:32 PM [facility] BASOPHILS ABSOLUTE 0.02 0.01 - 0.08 K/uL 06/07/2016 10:32 PM [facility] IMMATURE GRANULOCYTES 0 % 06/07/2016 10:32 PM [facility] IMMATURE GRANULOCYTES ABSOLUTE 0.02 K/uL 06/07/2016 10:32 PM [facility] Blood Collection / Unknown 06/07/2016 9:32 PM CDT 06/07/2016 9:37 PM CDT us Bertram Ryder DO HEMATOLOGY ORDERABLES Final Result [facility] CLIA # [id number] [address] [place] [address] documented in this encounter Visit Diagnoses Not on filedocumented in this encounter
--- OUTSIDE RECORDS SUMMARY | 2025-09-17 11:18 | XMS_ITS | Encounter Summary ---
Author Organization [facility] Address [address] [place] [address] Care Team Providers Care Managing Attorney Name Role Phone Unavailable Primary Care Provider Unavailabl e Encounter Details Date Type Department Care Team (Late st Contact Info) Description 07/07/2015 Lab Requisition [facility] Laboratory Services [place] [address] [place] [id number] Lorenzo Gregory, LAKESHA [address] [place] [address] Social History Tobacco Use Types Packs/Day Years Used Date Smoking Tobacco: Every Day Cigarettes 1 40 Comments Unknown Sex and Gender Information Value Date Recorded Sex Assigned at Not on file 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 Gender Identity Not on file Sexual [...] - 4.20 uIU/mL 07/07/2015 11:25 PM CDT [facility] Jalbum [facility] Blood 07/07/2015 10:3 0 PM CDT 07/07/2015 10:30 PM CDT us Lorenzo CROWDER CHEMISTRY ORDERABLES Final R esult [facility] CLIA # [id number] [address] [place] [address] * (ABNORMAL) LIPID PANEL (07/07/2015 10:30 PM CDT) CHOLESTEROL 259(H) <200 mg/dL 07/07/2015 11:25 PM CDT [facility] TRIGLYCERIDE 85 <150 mg/dL 07/07/2015 11:25 PM CDT [facility] HDL 78(H) 40 - 59 mg/dL 07/07/2015 11:25 PM CDT [facility] LDL CALCULATED 164(H) <100 mg/dL 07/07/2015 11:25 PM CDT [facility] NON-HDL CHOLESTEROL 181(H) <130 mg/dL 07/07/2015 11:25 PM CDT [facility] Blood 07/07/2015 10:3 0 PM CDT 07/07/2015 10:30 PM CDT Narrative [facility] LABORATORY [facility] - 07/07/2015 11:25 PM CDT TOTAL CHOLESTEROL [...] Lorenzo CROWDER CHEMISTRY ORDERABLES Final R esult [facility]ATORY [facility] [place] CLIA # [id number] [address] [address] * (ABNORMAL) COMPREHENSIVE METABOLIC PANEL (07/07/2015 10:30 PM CDT) SODIUM 138 136 - 145 mmol/L 07/07/2015 11:25 PM CDT [facility] LABORATORY [facility] POTASSIUM 4.0 3.5 - 5.1 mmol/L 07/07/2015 11:25 PM CDT [facility] LABORATORY [facility] CHLORIDE 97(L) 98 - 107 mmol/L 07/07/2015 11:25 PM CDT [facility] LABORATORY [facility] CO2 27 22 - 29 mmol/L 07/07/2015 11:25 PM CDT [facility] LABORATORY [facility] CALCIUM 9.7 8.8 - 10.2 mg/dL 07/07/2015 11:25 PM CDT [facility] LABORATORY [facility] BUN 5(L) 8 - 23 mg/dL 07/07/2015 11:25 PM CDT [facility] LABORATORY [facility] CREATININE 0.60 0.51 - 0.95 mg/dL 07/07/2015 11:25 PM CDT [facility] LABORATORY [facility] GLUCOSE 75 74 - 106 mg/dL 07/07/2015 11:25 PM CDT [facility] LABORATORY [facility] TOTAL PROTEIN 8.7 6.6 - 8.7 g/dL 07/07/2015 11:25 PM CDT [facility] LABORATORY [facility] ALBUMIN 4.7 3.5 - 5.2 g/dL 07/07/2015 11:25 PM CDT [facility] LABORATORY [facility] BILIRUBIN TOTAL 0.3 0.0 - 1.2 mg/dL 07/07/2015 11:25 PM CDT [facility] LABORATORY [facility] ALKALINE PHOSPHATASE 119(H) 35 - 104 U/L 07/07/2015 11:25 PM CDT [facility] LABORATORY [facility] AST 34 10 - 35 U/L 07/07/2015 11:25 PM CDT [facility] LABORATORY [facility] ALT 34 10 - 35 U/L 07/07/2015 11:25 PM CDT [facility] LABORATORY [facility] GFR >60 >=60 mL/min/1.7 3 sq meter 07/07/2015 11:25 PM CDT [facility] Jalbum [facility] Comment: eGFR has not been validated [...] 3 sq meter 07/07/2015 11:25 PM CDT [facility] Jalbum [facility] ANION GAP 14 12 - 20 mmol/L 07/07/2015 11:25 PM CDT [facility] Jalbum [facility] Blood 07/07/2015 10:3 0 PM CDT 07/07/2015 10:30 PM CDT Lorenzo CROWDER CHEMISTRY ORDERABLES Final R esult [id number] [address] [place] [id number] * (ABNORMAL) CBC WITH DIFFERENTIAL (07/07/2015 10:30 PM CDT) WBC 7.8 4.0 - 10.0 K/uL 07/07/2015 10:57 PM CDT [facility] Jalbum [facility] RBC 6.01(H) 3.93 - 5.22 M/uL 07/07/2015 10:57 PM CDT [facility] Jalbum [facility] HEMOGLOBIN 15.7 11.2 - 15.7 g/dL 07/07/2015 10:57 PM CDT [facility] Jalbum [facility] HEMATOCRIT 47.0(H) 34.1 - 44.9 % 07/07/2015 10:57 PM CDT [facility] Jalbum [facility] MCV 78.2(L) 79.4 - 94.8 fL 07/07/2015 10:57 PM CDT [facility] [place] MCH 26.1 25.6 - 32.2 pg 07/07/2015 10:57 PM CDT [place] [facility] [place] MCHC 33.4 32.2 - 35.5 g/dL 07/07/2015 10:57 PM CDT [facility] [place] RDW 16.6(H) 11.0 - 14.5 % 07/07/2015 10:57 PM [facility] [place] [facility] [place] RDW-STDEV 46.4 36.9 - 56.9 fL 07/07/2015 10:57 PM CDT [facility] [place] PLATELETS 389(H) 163 - 337 K/uL 07/07/2015 10:57 PM CDT [facility] [place] MPV 10.3 10.0 - 14.8 fL 07/07/2015 10:57 PM CDT [facility] [place] NEUTROPHILS 52 34 - 71 % 07/07/2015 10:57 PM CDT [facility] [place] LYMPHOCYTES 42 19 - 52 % 07/07/2015 10:57 PM CDT [facility] [place] MONOCYTES 6 5 - 13 % 07/07/2015 10:57 PM CDT [facility] [place] EOSINOPHILS 0(L) 1 - 6 % 07/07/2015 10:57 PM CDT [facility] [place] BASOPHILS 0 0 - 1 % 07/07/2015 10:57 PM CDT [facility] [place] NEUTROPHIL ABSOLUTE 4.01 1.56 - 6.13 K/uL 07/07/2015 10:57 PM CDT [facility] [place] LYMPHOCYTE ABSOLUTE 3.28 1.20 - 3.40 K/uL 07/07/2015 10:57 PM CDT [facility] [place] MONOCYTE ABSOLUTE 0.43(H) 0.24 - 0.36 K/uL 07/07/2015 10:57 PM CDT [facility] [place] EOSINOPHIL ABSOLUTE 0.01(L) 0.04 - 0.36 K/uL 07/07/2015 10:57 PM CDT [facility] [place] BASOPHILS ABSOLUTE 0.01 0.01 - 0.08 K/uL 07/07/2015 10:57 PM CDT [facility] [place] IMMATURE GRANULOCYTES 0 % 07/07/2015 10:57 PM CDT [facility] LABORATORY [facility] IMMATURE GRANULOCYTES ABSOLUTE 0.01 K/uL 07/07/2015 10:57 PM CDT [facility] LABORATORY [facility] Blood 07/07/2015 10:3 0 PM CDT 07/07/2015 10:30 PM CDT us Lorenzo CROWDER HEMATOLOGY ORDERABLES Final Result [facility] [place] CLIA # [id number] [address] [place] [id number] documented in this encounter Visit Diagnoses Not on filedocumented in this encounter
--- NOTE | 2025-09-17 11:47 | XR_ITS ---
WS: [id number] Portable AP upright chest, 09/17/2025 Clinical Data: dyspnea/cough Comparison: None. Findings: No nodules, masses or effusions are seen. The heart is normal. The pulmonary vascularity is not increased. No pneumonia or pneumothorax is seen. The aortic arch shows calcification and tortuosity. The diaphragms are flattened. XR/XR chest 1V portable 55215 Impression: Atherosclerosis and hyperinflation.
[2025-09-17 12:29] VITALS: PULSE 72; RESP 18; O2SAT 94
--- NOTE | 2025-09-17 12:31 | W.ED.FALL ---
HPI - Fall General: Chief Complaint: Fall Stated Complaint: rib/upper abd adn back pain due to fall Time Seen by Provider: 09/17/25 12:31 History of Present Illness: 70-year-old female who presents to the emergency room complaining rib and sternal pain upper abdominal pain. This resulted after she was leaning over the edge of a bathtub. She now notes that it is uncomfortable when she takes a deep breath. She did not have a direct blow or fall. She just leaned into it. She has not had any hemoptysis no fever sweats chills nonproductive cough. Patient at her chronic baseline oxygen of 4 L Associated symptoms-after fall: Reports chest pain (Worse with palpation and deep breath); Denies abdominal pain or neck pain Related Data Home Medications ?Medication ?Instructions ?Recorded ?Confirmed levothyroxine 50 mcg tablet 50 mcg PO DAILY@08 04/04/23 06/10/25 albuterol sulfate 2.5 mg/3 mL 2.5 mg inhalation QID PRN 02/25/25 06/10/25 (0.083 %) solution for nebulization Shortness Of Breath cetirizine 10 mg tablet 10 mg PO DAILY 02/25/25 06/10/25 cilostazol 100 mg tablet 100 mg PO BID 02/25/25 06/10/25 clopidogrel 75 mg tablet 75 mg PO DAILY 02/25/25 06/10/25 isosorbide mononitrate 30 mg 30 mg PO DAILY 02/25/25 06/10/25 tablet,extended release 24 hr pantoprazole 40 mg tablet,delayed 40 mg PO DAILY 02/25/25 06/10/25 release rosuvastatin 40 mg tablet 40 mg PO BEDTIME 02/25/25 06/10/25 alprazolam 0.25 mg tablet 0.25 mg PO Q6H PRN Anxiety 05/19/25 06/10/25 amiodarone 200 mg tablet See Rx Instructions .Route .COMPLEX 06/10/25 06/10/25 furosemide 40 mg tablet 40 mg PO DAILY x4days 06/10/25 06/10/25 Previous Rx's ?Medication ?Instructions ?Recorded albuterol sulfate 90 mcg/actuation 2 puff inhalation QID PRN 11/27/24 aerosol inhaler Shortness Of Breath #8.5 grams fluticasone fur. 100 mcg-umeclid 1 inh inhalation Q24H #28 ea 06/06/25 62.5 mcg-vilant 25 mcg inhalat.powder (Trelegy Ellipta) nicotine 21 mg/24 hr daily 1 patch transdermal DAILY #28 ea 06/06/25 transdermal patch levofloxacin 500 mg tablet 750 mg (1.5 x 500 mg) PO DAILY 5 06/12/25 days #5 tabs tramadol 50 mg tablet 50 mg PO Q8H PRN pain #7 tabs 09/17/25 Allergies Allergy/AdvReac Type Severity Reaction Status Date / Time diphenhydramine (From Allergy Intermediate ALGY-Hives Verified 06/06/25 10:43 Benadryl) sulfabenzamide Allergy Intermediate swelling Verified 06/06/25 10:43 Review of Systems Const: Denies: fever(s) or chills Card: Reports: chest pain (Worse with palpation and deep breath) Resp: Denies: dyspnea GI: Denies: abdominal pain : Denies: dysuria, urinary frequency or urinary urgency Musc: Denies: neck pain or back pain Skin/Breast: Denies: rash PFSH ED PFSH: Medical History Pulmonary infiltrates Obstructive sleep apnea Acute exacerbation of chronic obstructive pulmonary disease Peripheral arterial disease Benign essential HTN Viral pneumonia Influenza Hypoxia Acute bronchitis Acute on chronic respiratory failure with hypoxia and hypercapnia Grade III diastolic dysfunction MURILLO (dyspnea on exertion) Atherosclerosis of coronary artery Hypertension Adult hypothyroidism Mixed hyperlipidemia Dyspnea on exertion Malaise and fatigue Chronic obstructive asthma with exacerbation Emphysema/COPD GERD (gastroesophageal reflux disease) Back pain Palpitations Hypothyroidism Insomnia Park's palsy Hx of hyperlipidemia Anxiety Hx of breast cancer CAD (coronary artery disease) History of hypertension PAD (peripheral artery disease) Syncope Bilateral carotid artery stenosis without cerebral infarction Surgical History H/O tubal ligation History of cholecystectomy Status post carotid endarterectomy Family History Mother Lung disease Family/Other Cancer Grandmother CAD (coronary artery disease) Stroke Father Bleeding disorder Denies family history of Diabetes Clotting disorder Dementia Chronic kidney disease (CKD) Suicide Anesthesia complication Social History Smoking and tobacco/nicotine status: current every day tobacco/nicotine user (1/2 ppd X 58 years. ) cigarettes Packs smoked per day: 1 Years cigarettes smoked: 31 [ Other cigarette details: Started at age 22] Alcohol intake: never Substance/Drug Use: never Physical Exam Const: COMMON NORMALS: no acute distress GENERAL APPEARANCE: cooperative and comfortable ORIENTATION/CONSCIOUSNESS: Yes awake, Yes oriented to person, Yes oriented to place and Yes oriented to time HENMT: COMMON NORMALS: normocephalic, atraumatic and hearing grossly normal bilaterally HEAD & SCALP: normocephalic and atraumatic Chest: OTHER: Reproducible tenderness across the lower portion of the spine and sternum. No subcutaneous emphysema no crepitus. No ecchymosis noted Resp: COMMON NORMALS: normal respiratory effort, No retractions and No use of accessory muscles AUSCULTATION: rhonchi and wheezes Cardio: COMMON NORMALS: regular rate, regular rhythm and No murmurs present (Cardio) RATE: regular rate RHYTHM: regular rhythm GI: COMMON NORMALS: Soft to palpation and No hepatosplenomegaly present AUSCULTATION: Yes normoactive bowel sounds PALPATION: Yes Soft to palpation, No Tenderness to palpation present (GI), No Guarding due to palpation present (GI) and Yes No hepatosplenomegaly present Extremity: COMMON NORMALS: normal to inspection, capillary refill normal, no clubbing, cyanosis or edema, no calf tenderness and no pedal edema Neuro: SENSORIUM/ORIENTATION: Yes oriented to person, Yes oriented to place and Yes oriented to time Skin: COMMON NORMALS: no rashes or lesions noted GENERAL SKIN EXAM: no rashes or lesions noted Course Vital Signs: Vital signs: Vital Signs Temperature 98.3 F 09/17/25 11:17 Pulse Rate 72 09/17/25 12:29 Respiratory Rate 18 09/17/25 12:29 Blood Pressure 102/58 09/17/25 11:17 Pulse Oximetry 94 09/17/25 12:29 Oxygen Delivery Me thod Nasal Cannula 09/17/25 12:29 Oxygen Flow Rate 4 09/17/25 12:29 MDM - Fall Medical Decision Making 70-year-old female who presented to the emergency room with complaint of musculoskeletal chest wall pain after leaning over the edge of a bathtub. Sternum and chest x-rays reviewed no acute findings no fractures noted. Chest x-ray does not show any new acute infiltrates or effusions no change from previous chest x-ray from 06/09/2025 imaging reviewed by myself. Laboratory tests are unremarkable white count is normal pH shows well compensated mild chronic hypoxia and chronic hypercapnia. At her baseline compared to previous blood gas. Chemistries unremarkable. Pain is reproducible and relieved with medications given will discharge patient home with tramadol to use as needed. Follow-up with primary care Medical Records I reviewed the patient's medical records. Lab Data I reviewed the patient's lab results. 09/17/25 12:09 09/17/25 12:09 Radiology Impressions Chest X-Ray 09/17/25 11:47 Impression: Atherosclerosis and hyperinflation. Sternum X-Ray 09/17/25 12:38 Impression: Negative sternum. Laboratory Results WBC 9.87 10^3/uL (3.29-11.43) 09/17/25 12:09 RBC 5.28 10^6/uL (3.85-5.65) 09/17/25 12:09 Hgb 12.60 g/dL (11.27-16.99) 09/17/25 12:09 Hct 40.8 % (36-47) 09/17/25 12:09 MCV 77.3 fl (85-98) L 09/17/25 12:09 MCH 23.9 pg (27-33) L 09/17/25 12:09 MCHC 30.9 g/dL (30-55) 09/17/25 12:09 RDW 16.6 % (12.1-15.1) H 09/17/25 12:09 Plt Count 374 10^3/cmm (157-399) 09/17/25 12:09 MPV 9.3 fL (7.4-10.4) 09/17/25 12:09 Neut % (Auto) 68.1 % 09/17/25 12:09 Lymph % (Auto) 19.9 % 09/17/25 12:09 [place] % (Auto) 9.0 % 09/17/25 12:09 Eos % (Auto) 2.1 % 09/17/25 12:09 Baso % (Auto) 0.4 % 09/17/25 12:09 Neut # (Auto) 6.72 10^3/uL (1.8-7.7) 09/17/25 12:09 Lymph # (Auto) 2.0 10^3/uL (0.8-4.8) 09/17/25 12:09 [place] # (Auto) 0.9 10^3/uL (0.2-0.9) 09/17/25 12:09 Eos # (Auto) 0.2 10^3/uL (0.0-0.8) 09/17/25 12:09 Baso # (Auto) 0.0 10^3/uL (0.0-0.1) 09/17/25 12:09 Nucleated RBC % (auto) 0 % 09/17/25 12:09 Nucleated RBCs # 0.0 /100WBC 09/17/25 12:09 Specimen Type Arterial 09/17/25 12:28 Sample Site Radial, left 09/17/25 12:28 ABG pH 7.37 (7.35-7.45) 09/17/25 12:28 ABG pCO2 56.6 mmHg (35-45) H 09/17/25 12:28 ABG pO2 79.4 mmHg (80.0-100.0) L 09/17/25 12:28 ABG HCO3 32.9 mmol/L (22-26) H 09/17/25 12:28 ABG O2 Saturation 96.5 09/17/25 12:28 ABG Base Excess 6.1 mmol/L (-2.0-2.0) H 09/17/25 12:28 Virgilio Test Pos 09/17/25 12:28 A-a O2 Gradient 0.2 mmHg (5-10) L 09/17/25 12:28 Hematocrit 39.3 % (37-47) 09/17/25 12:28 Hgb O2 Saturation 90.5 % (95-100) L 09/17/25 12:28 Carboxyhemoglobin 5.1 %THgb (0.4-20.1) 09/17/25 12:28 Methemoglobin 1.1 % (0.4-1.5) 09/17/25 12:28 Total Hemoglobin 12.8 g/dL (12-16) 09/17/25 12:28 Sodium 138.0 mmol/L (131-143) 09/17/25 12:28 Potassium 3.9 mmol/L (3.5-5.0) 09/17/25 12:28 Glucose 119.0 mg/dL (70-115) H 09/17/25 12:28 Ionized Calcium 1.2 mmol/L (1.1-1.4) 09/17/25 12:28 O2 Delivery Device Nc 09/17/25 12:28 O2 Liters/Min 4.0 % 09/17/25 12:28 Busher Helper ID [place] 09/17/25 12:28 Sodium 137 mmol/L (136-145) 09/17/25 12:09 Potassium 3.8 mmol/L (3.5-5.1) 09/17/25 12:09 Chloride 95 mmol/L (98-107) L 09/17/25 12:09 Carbon Dioxide 35 mmol/L (22-29) H 09/17/25 12:09 Anion Gap 10.8 (5-19) 09/17/25 12:09 BUN 11 mg/dL (8-23) 09/17/25 12:09 Creatinine 0.9 mg/dL (0.5-0.9) 09/17/25 12:09 GFR Calculation Not Reportable 09/17/25 12:09 Glucose 86 mg/dL (65-115) 09/17/25 12:09 Calculated Osmolality 283 mOsm/kg (285-295) L 09/17/25 12:09 Calcium 9.7 mg/dL (8.5-10.5) 09/17/25 12:09 Total Bilirubin 0.3 mg/dL (0.15-1.2) 09/17/25 12:09 AST 19 U/L (0-32) 09/17/25 12:09 ALT 14 U/L (0-33) 09/17/25 12:09 Alkaline Phosphatase 102 U/L (35-105) 09/17/25 12:09 Total Protein 7.2 g/dL (6.6-8.7) 09/17/25 12:09 Albumin 4.0 g/dL (3.5-5.2) 09/17/25 12:09 Globulin 3.2 g/dL (1.3-4.6) 09/17/25 12:09 Influenza A (PCR) Negative (Negative) 09/17/25 12:48 Influenza Type B (PCR) Negative (Negative) 09/17/25 12:48 RSV (PCR) Negative (Negative) 09/17/25 12:48 SARS-CoV-2 (PCR) Negative (Negative) 09/17/25 12:48 All radiology interpretation(s) finalized by discharge Discharge Plan Discharge Patient Disposition: Home Clinical Impression: Acute chest wall pain Condition: Stable Prescriptions: New tramadol 50 mg tablet 50 mg PO Q8H PRN (Reason: pain) Qty: 7 0RF No Action Trelegy Ellipta 100-62.5-25 mcg blister with device 1 inh inhalation Q24H Qty: 28 6RF nicotine 21 mg/24 hr patch 24 hour 1 patch transdermal DAILY Qty: 28 0RF amiodarone 200 mg tablet See Rx Instructions .ROUTE .COMPLEX Rx Instructions: Take 2 tablets by mouth twice daily for 4 days, then 1 tablet twice daily for 7 days, then 1 tablet daily: thereafter. furosemide 40 mg tablet 40 mg PO DAILY levofloxacin 500 mg tablet 750 mg PO DAILY 5 Days Qty: 5 0RF levothyroxine 50 mcg tablet 50 mcg PO DAILY@08 albuterol sulfate 90 mcg/actuation HFA aerosol inhaler 2 puff INHALATION QID PRN (Reason: Shortness Of Breath) Qty: 8.5 5RF cilostazol 100 mg tablet 100 mg PO BID albuterol sulfate 2.5 mg /3 mL (0.083 %) solution for nebulization 2.5 mg inhalation QID PRN (Reason: Shortness Of Breath) isosorbide mononitrate 30 mg tablet extended release 24 hr 30 mg PO DAILY clopidogrel 75 mg tablet 75 mg PO DAILY pantoprazole 40 mg tablet,delayed release (DR/EC) 40 mg PO DAILY rosuvastatin 40 mg tablet 40 mg PO BEDTIME cetirizine 10 mg Tablet 10 mg PO DAILY alprazolam 0.25 mg tablet 0.25 mg PO Q6H PRN (Reason: Anxiety) Discharge Orders: Discharge ED (Routine); Ordered 09/17/25 Ordered By: Vasile Bledsoe Referrals: Katie Dobbs PA [Primary Care Provider, [facility]] Discharge Diet: Usual diet Discharge Activity: Increase activity as tolerated Patient Instructions: Opioid Safety, Pain Management, Patient Portal & Mo Instructions Activity Restrictions/Additional Instructions: Thank you for choosing [facility] for your healthcare needs today. It is very important that you follow up as instructed or that you return to the Emergency Department should you have concerns or if your condition changes or worsens in any way. Emergency department visits are focused on emergent conditions, in some cases you may require further evaluation on an outpatient basis. You are seen emergency room with complaints of chest discomfort after leaning into the edge of a bathroom. X-rays of the sternum and of your chest did not show any acute fractures chest x-ray shows chronic changes which are unchanged. Suspect your pain is musculoskeletal from the (Please note that included in your discharge packet is information concerning opioid safety and pain management. 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
[2025-09-17 12:33] LABS: Hematocrit 40.8 % (36-47); Hemoglobin 12.60 g/dL (11.27-16.99); Mean Corpuscular HGB Conc 30.9 g/dL (30-55); Mean Corpuscular Hemoglobin 23.9 pg (27-33); Mean Corpuscular Volume 77.3 fl (85-98); Nucleated Red Blood Cells % 0 %; Platelet Count 374 10^3/cmm (157-399); Red Blood Count 5.28 10^6/uL (3.85-5.65); White Blood Count 9.87 10^3/uL (3.29-11.43)
--- NOTE | 2025-09-17 12:38 | XR_ITS ---
WS: [id number] Sternum, 2 views, 09/17/2025 Clinical Data: trauma/pain Comparison: Two-view chest, 05/22/2024 Findings: No sternal fractures are seen. There is no displacement. XR/XR sternum min 2V [id number] Impression: Negative sternum.
[2025-09-17 12:39] LABS: ABG PCO2 56.6 mmHg (35-45); ABG PH Result 7.37 (7.35-7.45); Alveolar-Arterial Oxygen Gradi 0.2 mmHg (5-10); Arterial Blood Gas Hematocrit 39.3 % (37-47); Blood Gas Allen Test Pos; Blood Gas LPM 4.0 %; Blood Gas Operator Identificat WALCI; Blood Gas Sample Site Radial, left; Blood Gas Sample Type Arterial; Carboxyhemoglobin 5.1 %THgb (0.4-20.1); Glucose Level-ABG 119.0 mg/dL (70-115); HCO3 ABG 32.9 mmol/L (22-26); Ionized Calcium Level - ABG 1.2 mmol/L (1.1-1.4); Methemoglobin 1.1 % (0.4-1.5); Oxygen Saturation ABG 96.5; PO2 ABG 79.4 mmHg (80.0-100.0); Potassium Level - ABG 3.9 mmol/L (3.5-5.0); Sodium Level - ABG 138.0 mmol/L (131-143)
[2025-09-17 12:53] LABS: Alanine Aminotransferase 14 U/L (0-33); Albumin Level 4.0 g/dL (3.5-5.2); Alkaline Phosphatase 102 U/L (35-105); Anion Gap 10.8 (5-19); Aspartate Amino Transferase 19 U/L (0-32); Blood Urea Nitrogen 11 mg/dL (8-23); Calcium 9.7 mg/dL (8.5-10.5); Carbon Dioxide 35 mmol/L (22-29); Chloride 95 mmol/L (98-107); Globulin 3.2 g/dL (1.3-4.6); Glucose 86 mg/dL (65-115); Osmolality Calculated 283 mOsm/kg (285-295); Potassium 3.8 mmol/L (3.5-5.1); Sodium 137 mmol/L (136-145); Total Protein 7.2 g/dL (6.6-8.7)
[2025-09-17 13:34] LABS: Respiratory Syncytial Virus Ce NEGATIVE (Negative); SARS-CoV-2 PCR NEGATIVE (Negative)
== END 2025-09-17 13:49 | disposition home or self-care (01) ==
PROVIDERS: Emergency Provider Family Medicine; PCP Physician Assistant
DX: R07.89 Other chest pain (principal); Z11.52 Encounter for screening for COVID-19; Z79.02 Long term (current) use of antithrombotics/antiplatelets; F17.210 Nicotine dependence, cigarettes, uncomplicated; I25.10 Atherosclerotic heart disease of native coronary artery without angina pectoris; Z85.3 Personal history of malignant neoplasm of breast; J44.9 Chronic obstructive pulmonary disease, unspecified; E78.2 Mixed hyperlipidemia; I10 Essential (primary) hypertension
CPT/HCPCS: 36415; 36600; 71045; 71120; 80051; 80053; 82330; 82805; 85025; 87637; 94640; 99285; J9999